=== PATIENT | female | born 1970 | race Caucasian/White ===

== ENCOUNTER → 2016-08-31 | Outpatient (CLI) | payer OTHER ==
[~2016-08-31] MED LIST: ALBU1AER9 INH; ALPR1TAB2 PO; ALPR2TAB2 PO; AMOX875T PO; ATV/1 PO; CYAN3INJ SC; CYNI1000 SQ; EPP3/2 IM; FEXO1TAB46 PO; FLNIN NAE; FLUT0.15 NAE; FURO-85 PO; GFNSR600 PO; HYDR-4383 PO; HYDR5SYP11 PO; IPRA1AER2 INH; IPRASOL4 INH; LRS10 PO; MEPO1INJ INJ; MONT1TAB3 PO; NAPR1TAB9 PO; NORE1TAB93 PO; ONDA4TAB46 PO; OXYC1TAB3 PO; PRED10TA PO; PRED20TA2 PO; PRED50TA PO; PRLSR20 PO; SYMIN160 INH; TIOT1AER2 INH; VNTHFA/IN INH; WARF10TA4 PO; WARF6TAB5 PO; ZNT/150 PO; ZOLP6.252 PO
--- NOTE | 2016-08-31 12:03 | DIAGNOSTIC IMAGING REPORT ---
CHEST 2 VIEWS ROUTINE HISTORY: Short of breath. I26.99 Pulmonary [id number] COMPARISON: Chest 06/26/2016. FINDINGS: No focal lung consolidations. No evidence for pulmonary edema. The heart is normal in size. No pleural effusions. No pneumothorax. No change in the distal resorption/resection of the left clavicle. IMPRESSION: No significant change compared to the prior study. No acute process. Electronically signed by: Dameon Hawthorne M.D. 08/31/2016 12:01 PM Dictated Date/Time: 08/31/2016 12:00 PM
--- NOTE | 2016-08-31 16:24 | DIAGNOSTIC IMAGING REPORT ---
NUCLEAR PULMONARY VENTILATION/PERFUSION SCAN CLINICAL HISTORY: Dyspnea. COMPARISON STUDY: Chest x-ray dated 08/31/2016. Chest CT dated 05/28/2015. TECHNIQUE: Initially, ventilation images of both lungs are obtained following the inhalation of 32.5 mCi of aerosolized technetium 99m DTPA. Subsequently, perfusion images of both lungs were obtained following the IV administration of 6.4 mCi of technetium 99m MAA. Ventilation and perfusion images were acquired in the anterior, posterior, and oblique projections. FINDINGS: A chest x-ray performed 08/31/2016 shows that the lungs are clear. The ventilation of both lungs is normal and symmetric. Inhaled tracer is noted in the stomach. No perfusion defects are identified on the perfusion imaging. IMPRESSION: Findings are considered low probability for pulmonary embolus. Electronically signed by: Arias Montenegro M.D. 08/31/2016 4:22 PM Dictated Date/Time: 08/31/2016 4:20 PM
== END | disposition home or self-care (01) ==
LOC: C.NUCL 09:26
PROVIDERS: ATTEND Family Medicine
DX: I26.99 Other pulmonary embolism without acute cor pulmonale (principal)

== ENCOUNTER 2016-09-29 08:08 | Emergency (ER) | payer OTHER ==
[~2016-09-29] VITALS: Ht 172.7 cm; Wt 157.0 kg
[~2016-09-29 08:08] MED LIST changes: -ALPR2TAB2 PO; -AMOX875T PO; -ATV/1 PO; -CYNI1000 SQ; -FLUT0.15 NAE; -GFNSR600 PO; -HYDR5SYP11 PO; -IPRA1AER2 INH; -LRS10 PO; -PRED10TA PO; -PRED50TA PO; -TIOT1AER2 INH; -VNTHFA/IN INH; -WARF6TAB5 PO
[2016-09-29 08:17] VITALS: TEMP 36.9; Ht 172.7 cm; Wt 157.0 kg
[2016-09-29] MEDS ORDERED: VNTHFA/IN INH (08:27)
[2016-09-29] MEDS ORDERED: ALPR2TAB2 PO (08:27)
[2016-09-29] MEDS ORDERED: IPRASOL4 INH (08:28)
[2016-09-29] MEDS ORDERED: TIOT1AER2 INH (08:28)
[2016-09-29] MEDS ORDERED: FLUT0.15 NAE (08:28)
[2016-09-29] MEDS ORDERED: CYNI1000 SQ (08:28)
[2016-09-29] MEDS ORDERED: IPRA1AER2 INH (08:28)
[2016-09-29] MEDS ORDERED: ALBUT/IPRATROP 3MG/0.5MG NEB 3 ML VIAL INH STA (09:04)
[2016-09-29] MEDS ORDERED: METHYLPREDNISOLONE 125 MG VIAL IV STA (09:16)
[2016-09-29] MEDS ORDERED: LORAZEPAM 1 MG TAB SL STA (09:22)
--- NOTE | 2016-09-29 09:25 | EMERGENCY ROOM VISIT NOTE ---
History First contact with patient: 08:57 Chief Complaint: SHORTNESS OF BREATH Stated Complaint: SOB,COPD,CHEST HEAVY Nursing Triage Summary: Pt states had asthma exacerbation on Sun, came to work and sx worsened. Pt used neb about 1 hr [employer] and albuterol inh. Pt states, "I need solumedrol." Pt states she takes Coumadin for PE's several years ago. History of Present Illness The patient is a 46 year old female who presents to the Emergency Room with complaints of shortness of breath and chest tightness. The patient reports a history of asthma. She states that on Wednesday she was outside and had the windows open and feels as though this exacerbated her asthma. She has not gone to work for the last 2 days. She states that she went to work today and when she was pushing beds she noticed tightness in her chest and shortness of breath. She also reports feeling very anxious. The patient rates her discomfort a 5/10. She has a history of pulmonary embolus. Her last INR was 2.8. She currently takes Coumadin. She denies any earache, sore throat, cough or fever. She denies any abdominal pain, nausea or vomiting. She denies any extremity pain or swelling. Review of Systems A 10 system review of systems was completed with positives and pertinent negatives listed in the HPI. Past Medical/Surgical History Medical Problems: (1) Anxiety (2) Asthma (3) Chronic obstructive lung disease (4) COPD exacerbation (5) Hernia repair (6) Irritable colon Surgical Problems: (1) H/O hernia repair (2) History of cholecystectomy Family History Diabetes mellitus FH ischemic heart disease Social History Smoking Status: Former Smoker Alcohol Use: occasionally Marital Status: Housing Status: lives with family Occupation Status: employed Current/Historical Medications Scheduled Albuterol Hfa (Ventolin Hfa), 2-4 PUFFS INH Q6H Alprazolam (Xanax), 2 MG PO HS Budesonide/Formoterol Fumarate (Symbicort 160/4.5 Inhaler ), 2 PUFFS INH BID Cyanocobalamin (Cyanocobalamin), 1,000 MCG SQ WK Epinephrine (Epipen), 0.3 MG IM UD Fexofenadine Hcl (Susanne), 180 MG PO QAM Fluticasone Propionate (Nasal) (Flonase Allergy Relief), 1 SPRAYS MUKESH BID Ipratropium-Albuterol (Combivent Respimat), 1 PUFFS INH QID Mepolizumab (Nucala), 100 MG INJ MONTHLY Montelukast Sodium (Singulair), 10 MG PO HS Naproxen (Aleve), 440 MG PO BID Norethin Acet & Estrad-Fe (Oz Fe 1.5/30 1.5-30 mg-Mcg), 1 TAB PO DAILY Omeprazole (Prilosec), 20 MG PO QAM Ranitidine Hcl (Zantac), 150 MG PO HS Tiotropium [place] Monohydrate (Spiriva Respimat), 1 PUFFS INH BID Warfarin Sod (Jantoven), 10 MG PO HS Scheduled PRN Furosemide (Lasix), 20 MG PO DAILY PRN for SWELLING Hydrocodone/Acetaminophen (Mcdonald 10/325 Tab), 1 TAB PO Q6 PRN for Pain Ipratropium-Albuterol (Duoneb), 1 TREATMENT INH Q4 PRN for COPD Zolpidem Tartrate (Ambien Cr), 6.25 MG PO HS PRN for Sleep Allergies Coded Allergies: Adhesives (Verified Allergy, Intermediate, TAPE- SEVERE ITCHING, 09/29/16) Chlorhexidine (Verified Allergy, Intermediate, ITCHING, 09/29/16) Clarithromycin (Verified Adverse Reaction, Intermediate, NAUSEA, 09/29/16) Clindamycin (Verified Adverse Reaction, Mild, NAUSEA, 09/29/16) Tramadol (Verified Adverse Reaction, Mild, dizziness,SYNCOPE, 09/29/16) Physical Exam Vital Signs Date Time Temp Pulse Resp B/P Pulse Ox O2 Delivery O2 Flow Rate FiO2 09/29/16 11:09 76 20 141/77 100 09/29/16 08:57 64 20 100 Room Air 09/29/16 08:17 36.9 79 24 138/79 99 Room Air Physical Exam VITALS: Vitals are noted on the nurse's note and reviewed by myself. Vital signs stable. The patient's oxygen saturation is 99% on room air. She is not tachycardic. GENERAL: This is an anxious appearing 46-year-old female, in no acute distress, nondiaphoretic, well-developed well-nourished. SKIN: The skin was without rashes, erythema, edema, or bruising. There is no tenting of the skin. Capillary reflex less than 2 seconds. HEAD: Normocephalic atraumatic. EARS: External auditory canals clear, tympanic membranes pearly alvarez without erythema or effusion bilaterally. EYES: Pupils equal round and reactive to light and accommodation. Conjunctivae without injection, sclerae without icterus. Extraocular movements intact. NOSE: Patent, turbinates without inflammation or discharge. MOUTH: Mucous membranes moist. Tonsils are not enlarged. Pharynx without erythema or exudate. Uvula midline. Airway patent. Tongue does not deviate. NECK: Supple without nuchal rigidity. No lymphadenopathy. No thyromegaly. Cervical spine is nontender. No JVD. HEART: Regular rate and rhythm without murmurs gallops or rubs. LUNGS: There are very minimal scattered expiratory wheezes. No retractions or accessory muscle use. ABDOMEN: Positive bowel sounds x 4. Soft, nontender, without masses or organomegaly. MUSCULOSKELETAL: No muscle atrophy, erythema, or edema noted. Full range of motion in all extremities. Normal gait. Strength 5/5 throughout. NEURO: Patient was alert and oriented to person place and time. No focal neurological deficits. Medical Decision & Procedures ER Provider Diagnostic Interpretation: [~ rep ct add3]] CHEST ONE VIEW PORTABLE CLINICAL HISTORY: trouble breathing dyspnea COMPARISON STUDY: 08/31/2016 FINDINGS: The bones soft tissues and hemidiaphragms are normal. The cardiomediastinal silhouette is normal. The lungs are clear. The pulmonary vasculature is normal. IMPRESSION: Negative chest. Laboratory Results 09/29/16 09:30 Red Blood Count 4.46, Mean Corpuscular Volume 81.4, Mean Corpuscular Hemoglobin 27.1, Mean Corpuscular Hemoglobin Concent 33.3, Mean Platelet Volume 9.5, Neutrophils (%) (Auto) 63.6, Lymphocytes (%) (Auto) 29.8, Monocytes (%) (Auto) 4.7, Eosinophils (%) (Auto) 1.6, Basophils (%) (Auto) 0.2, Neutrophils # (Auto) 6.09, Lymphocytes # (Auto) 2.85, Monocytes # (Auto) 0.45, Eosinophils # (Auto) 0.15, Basophils # (Auto) 0.02 09/29/16 09:30 Test 09/29/16 09:30 09/29/16 09:38 White Blood Count 9.57 K/uL (4.8-10.8) Red Blood Count 4.46 M/uL (4.2-5.4) Hemoglobin 12.1 g/dL (12.0-16.0) Hematocrit 36.3 % (37-47) Mean Corpuscular Volume 81.4 fL (80-100) Mean Corpuscular Hemoglobin 27.1 pg (25-34) Mean Corpuscular Hemoglobin Concent 33.3 g/dl (32-36) Platelet Count 379 K/uL (130-400) Mean Platelet Volume 9.5 fL (7.4-10.4) Neutrophils (%) (Auto) 63.6 % Lymphocytes (%) (Auto) 29.8 % Monocytes (%) (Auto) 4.7 % Eosinophils (%) (Auto) 1.6 % Basophils (%) (Auto) 0.2 % Neutrophils # (Auto) 6.09 K/uL (1.4-6.5) Lymphocytes # (Auto) 2.85 K/uL (1.2-3.4) Monocytes # (Auto) 0.45 K/uL (0.11-0.59) Eosinophils # (Auto) 0.15 K/uL (0-0.5) Basophils # (Auto) 0.02 K/uL (0-0.2) RDW Standard Deviation 42.6 fL (36.4-46.3) RDW Coefficient of Variation 14.3 % (11.5-14.5) Immature Granulocyte % (Auto) 0.1 % Immature Granulocyte # (Auto) 0.01 K/uL (0.00-0.02) Prothrombin Time 28.9 SECONDS (9.0-12.0) Prothromb Time International Ratio 2.6 (0.9-1.1) Activated Partial Thromboplast Time 47.8 SECONDS (21.0-31.0) Partial Thromboplastin Ratio 1.8 Anion Gap 7.0 mmol/L (3-11) Est Creatinine Clear Calc Drug Dose 187.9 ml/min Estimated GFR () 127.8 Estimated GFR (Non- 110.3 BUN/Creatinine Ratio 12.6 (10-20) Calcium Level 8.6 mg/dl (8.5-10.1) Total Bilirubin 0.2 mg/dl (0.2-1) Aspartate Amino Transf (AST/SGOT) 13 U/L (15-37) Alanine Aminotransferase (ALT/SGPT) 31 U/L (12-78) Alkaline Phosphatase 84 U/L (45-117) Total Protein 7.0 gm/dl (6.4-8.2) Albumin 2.7 gm/dl (3.4-5.0) Globulin 4.3 gm/dl (2.5-4.0) Albumin/Globulin Ratio 0.6 (0.9-2) Bedside D-Dimer 47 ng/mlFEU (0-450) Bedside Troponin I 0.000 ng/ml (0-0.045) Medications Administered Medications (Trade) Dose Ordered Sig/Johnathan Route Start Time Stop Time Status Last Admin Dose Admin Albuterol/ Ipratropium (Duoneb) 3 ml NOW STAT INH 09/29/16 09:04 09/29/16 09:05 DC 09/29/16 09:11 3 ML Methylprednisolone Sodium Succinate (Solu-Medrol IV) 125 mg NOW STAT IV 09/29/16 09:16 09/29/16 09:17 DC 09/29/16 09:36 125 MG Lorazepam (Ativan Tab) 1 mg NOW STAT SL 09/29/16 09:22 09/29/16 09:23 DC 09/29/16 09:36 1 MG Procedure The patient was monitored on a front desk monitor. They maintained a normal sinus rhythm without ectopy. ECG Indication: chest pain Rate (beats per minute): 76 Rhythm: normal sinus Findings: no acute ischemic change Change: no significant change ED Course The patient was seen and examined. Previous visits were reviewed. The patient does not have a fever or leukocytosis. She does not have any significant electrolyte abnormality. Troponin was 0. D-dimer was not elevated. INR was 2.6. Chest x-ray does not reveal any obvious infiltrate The patient was given a DuoNeb She was given 125 mg IV Solu-Medrol She was given 1 mg oral Ativan The patient presents to the emergency department complaining of exacerbation of asthma, chest pain and trouble breathing. The patient also complains of anxiety. The patient does not have significant wheezing and has a few scattered expiratory wheezes. The above workup does not reveal any significant abnormality. I suggested a Medrol Dosepak for the patient. The patient states that she needs to have Ativan if she takes steroids because she gets very anxious. She states she is not able to sleep. When I reviewed the patient's medication history on the prescription drug monitoring website, she does regularly fill 2 mg Xanax from her family doctor. She states that she takes this at night to sleep. I am hesitant to prescribe her additional Ativan when she already is receiving benzodiazepines regularly from her family doctor. The patient states that she "always" gets additional Ativan when she is seen in the emergency department. I did review previous documentation and she had previously stated that she needs Ativan after getting a nebulizer because it makes her anxious. I could not find any documentation that the patient received additional Ativan in prescription form from the emergency department in our documentation on the prescription drug monitoring website. I do not feel comfortable prescribing her additional Ativan when she receives regular benzodiazepines from her family doctor. At this time, the patient asked to speak with my attending physician. Dr. Wray evaluated the patient as well. He felt that she did not have any significant wheezing at this time. He suggested not giving her Medrol Dosepak and therefore she would not have increased anxiety that will require additional benzodiazepines. The patient was advised of this. She should follow-up with her family doctor for further evaluation and management. Medical Decision DIFFERENTIAL DIAGNOSIS: Aortic dissection, myocarditis, pericarditis, cervical disc disease, costochondritis, herpes zoster, rib fracture, pleuritis, pneumonia , pulmonary embolus, tension pneumothorax, anxiety disorder, somatoform disorder , choledocholithiasis, status, esophagitis, esophageal spasm, esophageal reflux , esophageal rupture, pancreatitis, peptic ulcer disease, cardiac ischemia, ST elevation [place], acute coronary syndrome, arrhythmia, coronary artery vasospasm. vavular heart disease, coronary artery disease, among others. [place] Drug Monitoring Program Search Results: patient reviewed within database, see additional documentation Impression Primary Impression: Exacerbation of asthma Additional Impression: Anxiety Departure Information Dispostion Home / Self-Care Condition GOOD Referrals ,Ramon Mcguire M.D. (PCP) Patient Instructions Asthma - [facility], [facility] Additional Instructions Contact your family doctor to schedule a follow up appointment Return with worsening symptoms Work Instructions Return To Work: 1 day Problem Qualifiers
[2016-09-29 09:42] LABS: BASO % 0.2 %; BASO ABS # 0.02 K/uL (0-0.2); COMPLETE YES; EOS % 1.6 %; HEMATOCRIT 36.3 % (37-47); IG% 0.1 %; LYMPH % 29.8 %; LYMPH ABS # 2.85 K/uL (1.2-3.4); MEAN CELL VOLUME 81.4 fL (80-100); MEAN CORPUSCULAR HEMOGLOBIN 27.1 pg (25-34); MEAN CORPUSCULAR HGB CONC 33.3 g/dl (32-36); MEAN PLATELET VOLUME 9.5 fL (7.4-10.4); MONO % 4.7 %; NEUT % 63.6 %; PLATELET COUNT 379 K/uL (130-400); RED BLOOD COUNT 4.46 M/uL (4.2-5.4); WHITE BLOOD COUNT 9.57 K/uL (4.8-10.8)
[2016-09-29 09:58] LABS: INR 2.6 (0.9-1.1); PROTHROMBIN TIME (PATIENT) 28.9 SECONDS (9.0-12.0)
--- NOTE | 2016-09-29 10:02 | DIAGNOSTIC IMAGING REPORT ---
CHEST ONE VIEW PORTABLE CLINICAL HISTORY: trouble breathing dyspnea COMPARISON STUDY: 08/31/2016 FINDINGS: The bones soft tissues and hemidiaphragms are normal. The cardiomediastinal silhouette is normal. The lungs are clear. The pulmonary vasculature is normal. IMPRESSION: Negative chest. Electronically signed by: Michael Schneider M.D. 09/29/2016 10:01 AM Dictated Date/Time: 09/29/2016 10:00 AM
[2016-09-29 10:03] LABS: BUN/CREATININE RATIO 12.6 (10-20); CALCIUM 8.6 mg/dl (8.5-10.1); CREATININE 0.61 mg/dl (0.60-1.20); POTASSIUM 4.3 mmol/L (3.5-5.1)
[2016-09-29 10:05] LABS: ALB/GLOB RATIO 0.6 (0.9-2)
[2016-09-29 10:17] LABS: PARTIAL THROMBOPLASTIN RATIO 1.8
[2016-09-29 11:09] VITALS: BP 141/77; PULSE 76; O2SAT 100
[2016-10-27] MEDS ORDERED: GFNSR600 PO (10:56)
[2016-10-27] MEDS ORDERED: HYDR-4383 PO (10:56)
[2016-10-27] MEDS ORDERED: PRED10TA PO (10:56)
[2016-10-27] MEDS ORDERED: LRS10 PO (10:56)
[2016-10-27] MEDS ORDERED: ATV/1 PO (10:56)
== END 2016-09-29 11:10 | disposition home or self-care (01) ==
LOC: C.EDB 08:10 → C.EDA 11:10
DX: J44.1 Chronic obstructive pulmonary disease with (acute) exacerbation (principal); F41.9 Anxiety disorder, unspecified; J45.909 Unspecified asthma, uncomplicated; Z87.891 Personal history of nicotine dependence; Z51.81 Encounter for therapeutic drug level monitoring; Z79.01 Long term (current) use of anticoagulants

== ENCOUNTER 2016-10-18 11:27 | Emergency (ER) | payer OTHER ==
[~2016-10-18] VITALS: Ht 172.7 cm; Wt 156.1 kg
[~2016-10-18 11:27] MED LIST changes: -ALBU1AER9 INH; -ALPR1TAB2 PO; +ALPR2TAB2 PO; -CYAN3INJ SC; +CYNI1000 SQ; -FLNIN NAE; +FLUT0.15 NAE; +IPRA1AER2 INH; -ONDA4TAB46 PO; -OXYC1TAB3 PO; -PRED20TA2 PO; +TIOT1AER2 INH; +VNTHFA/IN INH
[2016-10-18] MEDS ORDERED: WARF6TAB5 PO (11:48)
[2016-10-18] MEDS ORDERED: METHYLPREDNISOLONE 125 MG VIAL IV STA (11:55)
[2016-10-18] MEDS ORDERED: SODIUM CHLORIDE 0.9% 1000ML 1,000 ML IV STA (11:55)
[2016-10-18] MEDS ORDERED: ALBUT/IPRATROP 3MG/0.5MG NEB 3 ML VIAL INH STA (11:55)
[2016-10-18] MEDS ORDERED: HYDROCODONE/HOMATROPINE SYRUP 5MG/1.5MG 5ML UDP PO STA (11:55)
[2016-10-18 12:22] VITALS: Ht 172.7 cm; Wt 156.1 kg
[2016-10-18 12:55] LABS: BASO % 0.4 %; BASO ABS # 0.03 K/uL (0-0.2); COMPLETE YES; EOS % 2.5 %; HEMATOCRIT 38.2 % (37-47); IG% 0.3 %; LYMPH % 27.5 %; LYMPH ABS # 2.13 K/uL (1.2-3.4); MEAN CELL VOLUME 80.6 fL (80-100); MEAN CORPUSCULAR HEMOGLOBIN 27.6 pg (25-34); MEAN CORPUSCULAR HGB CONC 34.3 g/dl (32-36); MEAN PLATELET VOLUME 9.3 fL (7.4-10.4); MONO % 6.1 %; NEUT % 63.2 %; PLATELET COUNT 314 K/uL (130-400); RED BLOOD COUNT 4.74 M/uL (4.2-5.4); WHITE BLOOD COUNT 7.75 K/uL (4.8-10.8)
[2016-10-18] MEDS ORDERED: LORAZEPAM 1 MG TAB ONE (12:59)
[2016-10-18] MEDS ORDERED: LORAZEPAM 1 MG TAB PO STA (13:01)
--- NOTE | 2016-10-18 13:04 | DIAGNOSTIC IMAGING REPORT ---
TWO VIEW CHEST CLINICAL HISTORY: Dyspnea. FINDINGS: PA and lateral chest radiographs are compared to study dated 09/29/2016. The examination is degraded by large body habitus. The cardiomediastinal silhouette is unremarkable. The lungs and pleural spaces are clear. There is no pneumothorax. The bony thorax appears intact. IMPRESSION: No active disease in the chest. Electronically signed by: Arias Montenegro M.D. 10/18/2016 1:03 PM Dictated Date/Time: 10/18/2016 1:02 PM
[2016-10-18 13:13] LABS: ALT/SGPT 25 U/L (12-78); BLOOD UREA NITROGEN 8 mg/dl (7-18); CALCIUM 8.3 mg/dl (8.5-10.1); CARBON DIOXIDE 24 mmol/L (21-32); CHLORIDE 106 mmol/L (98-107); CREATININE 0.63 mg/dl (0.60-1.20); GLUCOSE 81 mg/dl (70-99); SODIUM 141 mmol/L (136-145)
[2016-10-18 13:18] LABS: ALB/GLOB RATIO 0.7 (0.9-2); ALKALINE PHOSPHATASE 99 U/L (45-117); AST/SGOT 14 U/L (15-37)
[2016-10-18 14:14] LABS: MANUAL MICROSCOPIC REQUIRED? NO; REVIEW REQ? NO; URINE APPEARANCE CLEAR (CLEAR); URINE BILIRUBIN NEG (NEG); URINE COLOR YELLOW; URINE EPITHELIAL CELL AUTO >30 /lpf (0-5); URINE NITRITE NEG (NEG); URINE PH 5.5 (4.5-7.5); URINE SPECIFIC GRAVITY 1.017 (1.000-1.030); UROBILINOGEN NEG (NEG)
[2016-10-18 14:31] LABS: PARTIAL THROMBOPLASTIN RATIO 1.1; PROTHROMBIN TIME (PATIENT) 10.2 SECONDS (9.0-12.0)
[2016-10-18] MEDS ORDERED: HYDR5SYP11 PO (15:48)
[2016-10-18] MEDS ORDERED: ATV/1 PO (15:48)
[2016-10-18] MEDS ORDERED: PRED50TA PO (15:48)
[2016-10-18 16:11] VITALS: BP 122/71; PULSE 71; TEMP 37; O2SAT 96
--- NOTE | 2016-10-18 20:21 | EMERGENCY ROOM VISIT NOTE ---
ED Visit Note First contact with patient: 11:34 Chief Complaint: Cough, wheezing and sinus congestion. History of Present Illness: Ms. Sheppard is a 46-year-old white female who ambulates into the ED accompanied by her complaining of upper respiratory tract symptoms. Historically patient has a history of asthma, bronchitis and pulmonary emboli. Patient reports for the last 2-3 days she has been having a worsening cough that has been productive of a green chunky sputum and worsening sinus congestion /pain. She reports her cough has been increasing in intensity and regularity. She has not identified any aggravating or alleviating factors related to her cough. She has been using DayQuil, NyQuil and Mucinex without relief of her cough. Associated with her cough she reports that she develops a burning sensation in the midsternal area that has been present with previous episodes of bronchitis. This discomfort is only present with the cough resolved after a coughing episode. She reports she's been hearing herself wheezing with her cough and during rest full periods. She has been using her inhalers with minimal relief of the wheezing but no relief of the cough. Additionally she reports that she is having dyspnea on exertion and a few small amounts of blood seen in her sputum at the end of the severe coughing episode. Ahe also complains of sinus congestion and pressure over the bifrontal area and the bimaxillary area. She rates this discomfort 3/10. Her pain is nonradiating. Her pain worsens with palpation and positional changes of the head. She has not identified any alleviating factors related to this pain. She has not taken any specific pain medications but has been taking decongestants as previously noted. She is also noted some redness around the sinuses that she feels warm to the touch and a decreased appetite. Lastly patient reports that she has noticed an increase in urinary frequency but has no burning or urgency; she questions if this could be related to increased fluids she has been drinking because of her symptoms. Patient denies headache, dizziness, lightheadedness, recent head trauma/facial trauma, skin eruptions, visual changes, hearing changes, difficulty speaking, difficulty swallowing, difficulty ambulating/coordinating body movements, neck pain/stiffness, palpitations, orthopnea, dependent edema, recent surgery/ inactivity/extended travel, abdominal pain, nausea, vomiting, posttussive vomiting, thoracic back pain. Review of Systems: As noted above in history of present illness. All body systems were reviewed and found to be negative as noted above. Past Medical History: As previously noted, unspecified skin disorder, gallbladder disease, gastric ulcers. Current Medications: Remigio Dean Mitchells up now Medications Dose Route/Sig Max Daily Dose Days Date Category Dose Instructions Jantoven (Warfarin Sodium) 6 Mg Tab 12 Mg PO Wednesday10/18/16 Reported Combivent Respimat (Ipratropium-Albuterol) 1 Aer Aer 2 Puffs INH Q2H 09/29/16 Reported Spiriva Respimat (Tiotropium [place] Monohydrate) 1.25 Mcg/Act Aer 1 Puffs INH BID 09/29/16 Reported Flonase Allergy Relief (Fluticasone Propionate (Nasal)) 50 Mcg/Act Spr 1 Sprays MUKESH BID 09/29/16 Reported Cyanocobalamin 1,000 Mcg/Ml Inj 1,000 Mcg SQ WK 09/29/16 Reported ON Xanax (Alprazolam) 2 Mg Tab 2 Mg PO HS 09/29/16 Reported Nucala (Mepolizumab) 100 Mg Inj 100 Mg INJ MONTHLY 06/26/16 Reported EVERY 28 DAYS RECEIVED ON 07/16/16 Epipen (Epinephrine) 0.3 Mg/0.3 Ml Inj 0.3 Mg IM UD 06/26/16 Reported WITH NUCALA [place] 10/325 Tab (Acetaminophen/Hydrocodone Bitart) 1 Tab Tab 1 Tab PO Q6 PRN 03/06/16 Reported PATIENT REPORTS VERY RARE USE Jantoven (Warfarin Sodium) 10 Mg Tab 10 Mg PO 6XWK 12/02/15 Reported EXCEPT WEDNESDAY Symbicort 160/4.5 Inhaler (Budesonide/Formoterol Fumarate) Aero 2 Puffs INH BID 07/15/15 Reported Oz Fe 1.5/30 1.5-30 mg-Mcg (Norethin Acet & Estrad-Fe) 1 Tab Tab 1 Tab PO DAILY 05/05/15 Reported Aleve (Naproxen) 220 Mg Tab 440 Mg PO BID 08/05/14 Reported Ambien Cr (Zolpidem Tartrate) 6.25 Mg Tab 6.25 Mg PO HS PRN 05/04/14 Reported Zantac (Ranitidine Hcl) 150 Mg Tab 150 Mg PO HS 12/04/13 Reported Lasix (Furosemide) 20 Mg Tab 20 Mg PO DAILY PRN 12/04/13 Reported Duoneb (Ipratropium-Albuterol) 3 Ml Nebu 1 Treatment INH Q4 PRN 05/08/13 Reported Singulair (Montelukast Sodium) 10 Mg Tab 10 Mg PO HS 05/08/13 Reported Susanne (Fexofenadine Hcl) 180 Mg Tab 180 Mg PO QAM 05/08/13 Reported Prilosec (Omeprazole) 20 Mg Capcr 20 Mg PO QAM 11/11/12 Reported Allergies to Medications: Chlorhexidine, clarithromycin, clindamycin and tramadol. Social History: Patient is currently employed; she lives with her and feels safe in her home environment; she denies tobacco use and admits to alcohol use. Physical Examination: Vital Signs: Date Time Temp Pulse Resp B/P Pulse Ox O2 Delivery O2 Flow Rate FiO2 10/18/16 16:11 37.0 71 21 122/71 96 10/18/16 16:10 71 21 122/71 96 Room Air 10/18/16 15:30 61 23 10/18/16 15:00 71 21 10/18/16 14:11 86 24 121/68 98 Room Air 10/18/16 13:04 77 16 126/79 97 Room Air 10/18/16 11:32 37.0 80 20 141/85 95 Room Air GENERAL: 46-year-old female in mild distress due to pain and cough; no acute respiratory distress, nontoxic-appearing, afebrile and hemodynamically stable. NEUROLOGICAL: Awake, alert and oriented to person, place and time. Answering questions appropriately and following commands. Normal gait. Good hand eye coordination. No focal motor sensory deficits. SKIN: Warm, dry and pink. No soft tissue eruptions or trauma noted. HEENT: Atraumatic and normocephalic. Tenderness and erythema over the frontal and maxillary sinuses. PERRLA. Sclera white and conjunctiva pink. No drainage from naris, but audible congestion. Oral cavity moist and pink. Airway patent. Pharynx is nonerythematous or edematous. Speech normal. No lymphadenopathy. Trachea midline. No jugular venous distention. BACK: No tenderness over the bony spine. No CVA tenderness. THORAX: Lungs sounds are decreased bilaterally in all rivero with wheezing on exhalation. No rales or rhonchi. No increased respiratory effort or rate. No crepitus, tenderness, subcutaneous air or deformities noted. HEART: Regular rate and rhythm. No gallops, rubs or murmurs are appreciated. ABDOMEN: Obese, soft and nontender. Positive bowel sounds in all quadrants. No guarding, rigidity or organomegaly. EXTREMITIES: Moves all extremities well on command and with purpose. All distal neurovascular statuses are intact and equal bilaterally. No calf tenderness or cords. ED Course: Patient is assessed as noted above. Laboratory Testing: Test 10/18/16 12:45 10/18/16 12:51 10/18/16 13:50 10/18/16 13:55 Range/Units White Blood Count 7.75 4.8-10.8 K/uL Red Blood Count 4.74 4.2-5.4 M/uL Hemoglobin 13.1 12.0-16.0 g/dL Hematocrit 38.2 37-47 % Mean Corpuscular Volume 80.6 80-100 fL Mean Corpuscular Hemoglobin 27.6 25-34 pg Mean Corpuscular Hemoglobin Concent 34.3 32-36 g/dl Platelet Count 314 130-400 K/uL Mean Platelet Volume 9.3 7.4-10.4 fL Neutrophils (%) (Auto) 63.2 % Lymphocytes (%) (Auto) 27.5 % Monocytes (%) (Auto) 6.1 % Eosinophils (%) (Auto) 2.5 % Basophils (%) (Auto) 0.4 % Neutrophils # (Auto) 4.91 1.4-6.5 K/uL Lymphocytes # (Auto) 2.13 1.2-3.4 K/uL Monocytes # (Auto) 0.47 0.11-0.59 K/uL Eosinophils # (Auto) 0.19 0-0.5 K/uL Basophils # (Auto) 0.03 0-0.2 K/uL RDW Standard Deviation 41.8 36.4-46.3 fL RDW Coefficient of Variation 14.2 11.5-14.5 % Immature Granulocyte % (Auto) 0.3 % Immature Granulocyte # (Auto) 0.02 0.00-0.02 K/uL Sodium Level 141 136-145 mmol/L Potassium Level 4.0 3.5-5.1 mmol/L Chloride Level 106 98-107 mmol/L Carbon Dioxide Level 24 21-32 mmol/L Anion Gap 11.0 3-11 mmol/L Blood Urea Nitrogen 8 7-18 mg/dl Creatinine 0.63 0.60-1.20 mg/dl Est Creatinine Clear Calc Drug Dose 181.3 ml/min Estimated GFR () 126.4 Estimated GFR (Non- 109.1 BUN/Creatinine Ratio 13.0 10-20 Random Glucose 81 70-99 mg/dl Calcium Level 8.3 8.5-10.1 mg/dl Total Bilirubin 0.4 0.2-1 mg/dl Aspartate Amino Transf (AST/SGOT) 14 15-37 U/L Alanine Aminotransferase (ALT/SGPT) 25 12-78 U/L Alkaline Phosphatase 99 45-117 U/L Total Creatine Kinase 56 26-192 U/L Creatine Kinase MB < 0.5 0.5-3.6 ng/ml Creatine Kinase MB Ratio 0-3.0 Total Protein 7.1 6.4-8.2 gm/dl Albumin 2.8 3.4-5.0 gm/dl Globulin 4.3 2.5-4.0 gm/dl Albumin/Globulin Ratio 0.7 0.9-2 Bedside Troponin I 0.000 0-0.045 ng/ml Prothrombin Time 10.2 9.0-12.0 SECONDS Prothromb Time International Ratio 1.0 0.9-1.1 Activated Partial Thromboplast Time 27.3 21.0-31.0 SECONDS Partial Thromboplastin Ratio 1.1 D-Dimer 200 0-500 ug/L FEU Urine Color YELLOW Urine Appearance CLEAR CLEAR Urine pH 5.5 4.5-7.5 Urine Specific [place] 1.017 1.000-1.030 Urine Protein NEG NEG Urine Glucose (UA) NEG NEG Urine Ketones NEG NEG Urine Occult Blood 3+ NEG Urine Nitrite NEG NEG Urine Bilirubin NEG NEG Urine Urobilinogen NEG NEG Urine Leukocyte Esterase TRACE NEG Urine WBC (Auto) 5-10 0-5 /hpf Urine RBC (Auto) >30 0-4 /hpf Urine Hyaline Casts (Auto) 1-5 0-5 /lpf Urine Epithelial Cells (Auto) >30 0-5 /lpf Urine Bacteria (Auto) NEG NEG Chest X-Rays: Were read by myself and the radiologist showing no acute infiltrates, effusions or pneumothorax. Normal heart silhouette and bony anatomy. EKG: Was read by myself and reviewed with Dr. Meyer; and shows normal sinus rhythm with a ventricular rate of 78 bpm. Normal access and intervals. Low voltage QRS. No acute ST changes indicating ischemia, injury or infarction. This was compared to previous from September 2016 and no acute changes were noted. Patient was hydrated with normal saline, she received an albuterol/Atrovent nebulizer breathing treatment, 125 mg of Solu-Medrol IV, 10 mL of Hycodan cough syrup by mouth and 1 mg of Ativan by mouth; patient reports steroids cause her to be aggressive and agitated. Patient was reassessed multiple times during her stay in the emergency department. Patient's case was reviewed with Dr. Meyer; we agreed on diagnostic approach, treatment, disposition and plan. Patient was educated about tonight's findings and instructed on her treatment plan; she verbalizes understanding and agreement with this plan. Clinical Impression: Acute bronchitis. Acute sinusitis. Subtherapeutic INR Decision-Making: Initially my differential diagnosis I considered bronchitis, pneumonia, pulmonary embolism, acute coronary syndrome, thoracic aneurysm, pneumothorax and other causes. Disposition: Patient discharged home in stable condition accompanied by her ; prior to departure she was reassessed and subjectively reported she was feeling much better. Reevaluation of her lungs prior to departure showed improved air movement but she remains to have expiratory wheezing at the end of the cycle; I do feel this and the cycle wheezing is possible related to being a forced expiration. Plan: Patient was encouraged to continue her current medications as prescribed; she was encouraged to double her Coumadin today and tomorrow and then follow-up with her PCP for her subtherapeutic INR. Patient was prescribed 50 mg of prednisone once a day for the next 4 days. Patient was prescribed Hycodan cough syrup and encouraged to use 5 mL every 6 hours as needed for cough; appropriate narcotic precautions were discussed with the patient. Patient was prescribed Ativan 1 mg every 12 hours as needed for anxiety or agitation. Patient was prescribed Augmentin 875 mg 2 times a day for 10 days for her sinusitis. Patient was encouraged to use 2 puffs of her albuterol inhaler every 4 hours for 5 days and as needed for severe coughing episodes, wheezing and/or shortness of breath. Patient was encouraged to follow-up with her PCP for recheck in 3-4 days. Patient was encouraged return the ED for worsening symptoms, uncontrolled shortness of breath/wheezing, coughing up blood, fevers or any new/concerning symptoms.
[2016-10-27] MEDS ORDERED: GFNSR600 PO (10:56)
[2016-10-27] MEDS ORDERED: ATV/1 PO (10:56)
[2016-10-27] MEDS ORDERED: PRED10TA PO (10:56)
[2016-10-27] MEDS ORDERED: LRS10 PO (10:56)
[2016-10-27] MEDS ORDERED: HYDR-4383 PO (10:56)
== END 2016-10-18 16:13 | disposition home or self-care (01) ==
LOC: C.EDB 11:28
DX: J20.9 Acute bronchitis, unspecified (principal); J01.90 Acute sinusitis, unspecified; J45.909 Unspecified asthma, uncomplicated; K82.9 Disease of gallbladder, unspecified; Z79.01 Long term (current) use of anticoagulants; Z87.19 Personal history of other diseases of the digestive system; Z79.899 Other long term (current) drug therapy; Z88.3 Allergy status to other anti-infective agents; Z88.8 Allergy status to other drugs, medicaments and biological substances

== ENCOUNTER 2016-10-21 17:30 | Inpatient (IN) | payer OTHER ==
[~2016-10-21] VITALS: Ht 172.7 cm; Wt 157.1 kg
[~2016-10-21 17:30] MED LIST changes: +ATV/1 PO; +HYDR5SYP11 PO; +PRED50TA PO; -VNTHFA/IN INH; +WARF6TAB5 PO
[2016-10-21] MEDS ORDERED: METHYLPREDNISOLONE 125 MG VIAL IV STA (18:19)
[2016-10-21] MEDS ORDERED: AMOX875T PO (18:21)
--- NOTE | 2016-10-21 18:21 | EMERGENCY ROOM VISIT NOTE ---
History Report prepared by Iona: Erasmo Aguirre Under the Supervision of: Dr. Ángel Rosario M.D. First contact with patient: 18:13 Chief Complaint: SHORTNESS OF BREATH Stated Complaint: BRONCHITIS, SOB History of Present Illness The patient is a 46 year old female who presents to the Emergency Room with complaints of worsening symptoms on bronchitis since being discharged from the ED three days ago. The patient was diagnosed with bronchitis in the ED. She has had headaches, chest congestion, and a productive cough. The patient's chest congestion and cough have worsened since being discharged. She was having trouble breathing last night secondary to her symptoms. The patient was started on Augmentin and Prednisone after being discharged. She has also been taking breathing treatments. The patient notes that she has had relief of these symptoms with Decadron and Solu-Medrol in the past. The patient is on Coumadin for a history of blood clots. She notes that her current symptoms do not resemble past clots. The patient follows up with her previous doctor in [place], however she called [facility] today and was referred to the ED. Source of History: patient Onset: three days ago Position: other (respiratory) Quality: other (bronchitis) Timing: worsening Associated Symptoms: + SOB, + cough, + headache Review of Systems See HPI for pertinent positives & negatives. A total of 10 systems reviewed and were otherwise negative. Past Medical & Surgical Medical Problems: (1) Anxiety (2) Asthma (3) Chronic obstructive lung disease (4) COPD exacerbation (5) Hernia repair (6) Irritable colon Surgical Problems: (1) H/O hernia repair (2) History of cholecystectomy Family History Diabetes mellitus FH ischemic heart disease Social History Smoking Status: Former Smoker Alcohol Use: occasionally Marital Status: Housing Status: lives with family Occupation Status: employed Current/Historical Medications Scheduled Alprazolam (Xanax), 2 MG PO HS Amoxicillin & Pot Clavulanate (Augmentin 875-125 mg), 1 TAB PO BID Budesonide/Formoterol Fumarate (Symbicort 160/4.5 Inhaler ), 2 PUFFS INH BID Cyanocobalamin (Cyanocobalamin), 1,000 MCG SQ WK Epinephrine (Epipen), 0.3 MG IM UD Fexofenadine Hcl (Susanne), 180 MG PO QAM Fluticasone Propionate (Nasal) (Flonase Allergy Relief), 1 SPRAYS MUKESH BID Ipratropium-Albuterol (Combivent Respimat), 2 PUFFS INH Q2H Mepolizumab (Nucala), 100 MG INJ MONTHLY Montelukast Sodium (Singulair), 10 MG PO HS Naproxen (Aleve), 440 MG PO BID Norethin Acet & Estrad-Fe (Oz Fe 1.5/30 1.5-30 mg-Mcg), 1 TAB PO DAILY Omeprazole (Prilosec), 20 MG PO QAM Prednisone (Prednisone), 50 MG PO DAILY Ranitidine Hcl (Zantac), 150 MG PO HS Tiotropium [place] Monohydrate (Spiriva Respimat), 1 PUFFS INH BID Warfarin Sod (Jantoven), 10 MG PO 6XWK Warfarin Sod (Augtoven), 12 MG PO WEDNESDAY Scheduled PRN Furosemide (Lasix), 20 MG PO DAILY PRN for SWELLING Hydrocodone W/ Homatropine (Hycodan 5/1.5MG 5 Ml), 5 ML PO Q6H PRN for Cough Hydrocodone/Acetaminophen (Stella 10/325 Tab), 1 TAB PO Q6 PRN for Pain Ipratropium-Albuterol (Duoneb), 1 TREATMENT INH Q4 PRN for COPD Lorazepam (Ativan), 1 TAB PO Q12 PRN for Anxiety/Agitation Zolpidem Tartrate (Ambien Cr), 6.25 MG PO HS PRN for Sleep Allergies Coded Allergies: Adhesives (Verified Allergy, Intermediate, TAPE- SEVERE ITCHING, 10/21/16) Chlorhexidine (Verified Allergy, Intermediate, ITCHING, 10/21/16) Clarithromycin (Verified Adverse Reaction, Intermediate, NAUSEA, 10/21/16) Clindamycin (Verified Adverse Reaction, Mild, NAUSEA, 10/21/16) Tramadol (Verified Adverse Reaction, Mild, dizziness,SYNCOPE, 10/21/16) Physical Exam Vital Signs Date Time Temp Pulse Resp B/P Pulse Ox O2 Delivery O2 Flow Rate FiO2 10/21/16 18:56 77 20 94 Room Air 10/21/16 18:50 95 Room Air 10/21/16 18:48 62 20 168/104 96 Room Air 10/21/16 18:48 95 Room Air 10/21/16 18:35 70 10/21/16 17:39 36.8 96 20 194/95 95 Room Air Physical Exam GENERAL: Patient is uncomfortable appearing and in moderate distress. HEENT: No acute trauma, normocephalic atraumatic, mucous membranes moist, no nasal congestion, no scleral icterus. NECK: No stridor, no adenopathy, no meningismus, trachea is midline. LUNGS: No dyspnea. Diffuse wheezing and junky breath sounds throughout all rivero. No significant dyspnea or tachypnea. HEART: Regular rate and rhythm. No murmurs, rubs, gallops appreciated. ABDOMEN: Soft, nontender, bowel sounds positive, no masses appreciated, no peritonitis. BACK: No midline tenderness, no CVA tenderness EXTREMITIES: Normal motion all extremities, no cyanosis, no edema. NEUROLOGIC: Alert and oriented, no acute motor or sensory deficits, no focal weakness, cranial nerves grossly intact. SKIN: No rash, no jaundice, no diaphoresis. Medical Decision & Procedures ER Provider Diagnostic Interpretation: X ray results are stated below per my interpretation and the radiologist's interpretation. CHEST ONE VIEW PORTABLE CLINICAL HISTORY: Persistent cough COMPARISON STUDY: Chest radiograph October 18, 2016. FINDINGS: Lung volumes are normal. There is no pneumothorax or pleural effusion. No consolidation is identified to suggest pneumonia. There is no evidence of pulmonary edema. Cardiomediastinal silhouette is stable. The appearance of the chest is unchanged. IMPRESSION: No acute cardiopulmonary findings. Electronically signed by: Cameron Beatty M.D. 10/21/2016 6:55 PM Dictated Date/Time: 10/21/2016 6:55 PM Laboratory Results 10/21/16 17:15 Red Blood Count 4.87, Mean Corpuscular Volume 80.9, Mean Corpuscular Hemoglobin 27.3, Mean Corpuscular Hemoglobin Concent 33.8, Mean Platelet Volume 9.4, Neutrophils (%) (Auto) 78.4, Lymphocytes (%) (Auto) 18.3, Monocytes (%) (Auto) 2.7, Eosinophils (%) (Auto) 0.0, Basophils (%) (Auto) 0.2, Neutrophils # (Auto) 7.90, Lymphocytes # (Auto) 1.84, Monocytes # (Auto) 0.27, Eosinophils # (Auto) 0.00, Basophils # (Auto) 0.02 10/21/16 17:15 Test 10/21/16 17:15 10/21/16 19:22 White Blood Count 10.07 K/uL (4.8-10.8) Red Blood Count 4.87 M/uL (4.2-5.4) Hemoglobin 13.3 g/dL (12.0-16.0) Hematocrit 39.4 % (37-47) Mean Corpuscular Volume 80.9 fL (80-100) Mean Corpuscular Hemoglobin 27.3 pg (25-34) Mean Corpuscular Hemoglobin Concent 33.8 g/dl (32-36) Platelet Count 403 K/uL (130-400) Mean Platelet Volume 9.4 fL (7.4-10.4) Neutrophils (%) (Auto) 78.4 % Lymphocytes (%) (Auto) 18.3 % Monocytes (%) (Auto) 2.7 % Eosinophils (%) (Auto) 0.0 % Basophils (%) (Auto) 0.2 % Neutrophils # (Auto) 7.90 K/uL (1.4-6.5) Lymphocytes # (Auto) 1.84 K/uL (1.2-3.4) Monocytes # (Auto) 0.27 K/uL (0.11-0.59) Eosinophils # (Auto) 0.00 K/uL (0-0.5) Basophils # (Auto) 0.02 K/uL (0-0.2) RDW Standard Deviation 42.4 fL (36.4-46.3) RDW Coefficient of Variation 14.4 % (11.5-14.5) Immature Granulocyte % (Auto) 0.4 % Immature Granulocyte # (Auto) 0.04 K/uL (0.00-0.02) Anion Gap 7.0 mmol/L (3-11) Est Creatinine Clear Calc Drug Dose 161.6 ml/min Estimated GFR () 123.9 Estimated GFR (Non- 106.9 BUN/Creatinine Ratio 14.0 (10-20) Calcium Level 9.0 mg/dl (8.5-10.1) Total Creatine Kinase 64 U/L (26-192) Creatine Kinase MB < 0.5 ng/ml (0.5-3.6) Creatine Kinase MB Ratio (0-3.0) Troponin I < 0.015 ng/ml (0-0.045) Activated Partial Thromboplast Time 33.1 SECONDS (21.0-31.0) Partial Thromboplastin Ratio 1.3 Laboratory results as reviewed by me. Medications Administered Medications (Trade) Dose Ordered Sig/Johnathan Route Start Time Stop Time Status Last Admin Dose Admin Methylprednisolone Sodium Succinate (Solu-Medrol IV) 125 mg NOW STAT IV 10/21/16 18:19 10/21/16 18:21 DC 10/21/16 18:47 125 MG Albuterol/ Ipratropium (Duoneb) 12 ml ONE ONCE INH 10/21/16 18:30 10/21/16 18:31 DC 10/21/16 18:55 12 ML Lorazepam (Ativan Inj) 1 mg NOW STAT IV 10/21/16 19:03 10/21/16 19:04 DC 10/21/16 19:11 1 MG Hydrocodone Bit/ Homatropine Methylb (Hycodan Syrup) 10 ml NOW STAT PO 10/21/16 19:25 10/21/16 19:26 DC 10/21/16 19:32 10 ML Hydrocodone Bit/ Homatropine Methylb (Hycodan Syrup) 5 ml Q6H PRN PO 10/21/16 20:15 11/04/16 20:14 10/22/16 01:50 5 ML Acetaminophen/ Hydrocodone Bitart (Stella 10/325 Tab) 1 tab Q6 PRN PO 10/21/16 20:15 11/04/16 20:14 10/21/16 21:52 1 TAB Lorazepam (Ativan Tab) 1 mg Q12 PRN PO 10/21/16 20:15 10/22/16 11:19 DC 10/22/16 05:44 1 MG Ondansetron HCl (Zofran Inj) 4 mg Q6H PRN IV 10/21/16 20:15 11/20/16 20:14 10/22/16 09:04 4 MG ECG Indication: SOB/dyspnea Rate (beats per minute): 69 Rhythm: normal sinus Findings: no acute ischemic change, no ectopy ED Course 1814: The patient was evaluated in room C1b. A complete history and physical exam was performed. 1818: Solu-Medrol 125 mg IV. 1829: DuoNeb 12 ml INH. 1902: Ativan 1 mg IV. 1925: The patient is having intractable coughing and shaking. She is anxious and feels like she cannot get mucous out of her throat. She requested cough syrup. 1924: Hycodan 10 ml PO. 1957: The patient's lungs still sound very junky. 2154: Spoke with Dr. Hernandez, [facility]. The patient will be evaluated. Medical Decision Differential: Infectious, Reactive Airway Disease, Pneumonia, Pneumothorax, COPD , CHF, ACS, Pulmonary Embolism, MSK, GI, Dissection, amongst other etiologies entertained. 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 She arrives today with worsening SHOB despite home steroids over last 4 days and frequent breathing treatments. Patient with diffuse wheezing though also appears to be making some upper airway noises/stridor with this making full lung exam difficult. She has therapeutic INR. She notes need for IV solumedrol in this case. She is not toxic nor septic. Makes clear she needs IV pain meds which I am not sure are indicated. Was given hycodan cough med as sh eis coughing over and over, as well as ativan for what appears to be severe anxiety. No evidence ACS, dissection, and she has therapeutic INR thus I do not feel this represents PE. Good O2 sats throughout. Will have hospitalist eval. Consults Time Called: 2144 Consulting Physician: Dr. Hernandez, [facility]. Returned Call: [phone]: Spoke with Dr. Hernandez, [facility]. The patient will be evaluated. Impression Primary Impression: Status asthmaticus Scribe Attestation The scribe's documentation has been prepared under my direction and personally reviewed by me in its entirety. I confirm that the note above accurately reflects all work, treatment, procedures, and medical decision making performed by me. Departure Information Dispostion Being Evaluated By Hospitalist Referrals ,Ramon Mcguire M.D. (PCP) Patient Instructions My [facility] Problem Qualifiers Primary Impression: Status asthmaticus Asthma severity: severe persistent Qualified Codes: J45.52 - Severe persistent asthma with status asthmaticus
[2016-10-21] MEDS ORDERED: ALBUT/IPRATROP 3MG/0.5MG NEB 3 ML VIAL INH ONE (18:30)
[2016-10-21 18:39] LABS: BASO % 0.2 %; BASO ABS # 0.02 K/uL (0-0.2); COMPLETE YES; HEMATOCRIT 39.4 % (37-47); IG% 0.4 %; LYMPH % 18.3 %; LYMPH ABS # 1.84 K/uL (1.2-3.4); MEAN CELL VOLUME 80.9 fL (80-100); MEAN CORPUSCULAR HEMOGLOBIN 27.3 pg (25-34); MEAN CORPUSCULAR HGB CONC 33.8 g/dl (32-36); MEAN PLATELET VOLUME 9.4 fL (7.4-10.4); MONO % 2.7 %; NEUT % 78.4 %; PLATELET COUNT 403 K/uL (130-400); RED BLOOD COUNT 4.87 M/uL (4.2-5.4); WHITE BLOOD COUNT 10.07 K/uL (4.8-10.8)
[2016-10-21 18:56] VITALS: PULSE 77; O2SAT 94
--- NOTE | 2016-10-21 18:57 | DIAGNOSTIC IMAGING REPORT ---
CHEST ONE VIEW PORTABLE CLINICAL HISTORY: Persistent cough COMPARISON STUDY: Chest radiograph October 18, 2016. FINDINGS: Lung volumes are normal. There is no pneumothorax or pleural effusion. No consolidation is identified to suggest pneumonia. There is no evidence of pulmonary edema. Cardiomediastinal silhouette is stable. The appearance of the chest is unchanged. IMPRESSION: No acute cardiopulmonary findings. Electronically signed by: Cameron Beatty M.D. 10/21/2016 6:55 PM Dictated Date/Time: 10/21/2016 6:55 PM
[2016-10-21 18:58] LABS: BLOOD UREA NITROGEN 9 mg/dl (7-18); CARBON DIOXIDE 29 mmol/L (21-32); CHLORIDE 103 mmol/L (98-107); CREATININE 0.67 mg/dl (0.60-1.20); GLUCOSE 105 mg/dl (70-99); POTASSIUM 4.2 mmol/L (3.5-5.1); SODIUM 139 mmol/L (136-145)
[2016-10-21] MEDS ORDERED: LORAZEPAM 2 MG/ML 1 ML VIAL IV STA (19:03)
[2016-10-21] MEDS ORDERED: HYDROCODONE/HOMATROPINE SYRUP 5MG/1.5MG 5ML UDP PO STA (19:25)
[2016-10-21 19:46] LABS: PARTIAL THROMBOPLASTIN RATIO 1.3
[2016-10-21] MEDS ORDERED: POLYETHYLENE (MIRALAX) 17 GM PACK PO PRN (20:15)
[2016-10-21] MEDS ORDERED: LORAZEPAM 1 MG TAB PO PRN (20:15)
[2016-10-21] MEDS ORDERED: MAGNESIUM HYDROXIDE SUSP 30 ML UDC PO PRN (20:15)
[2016-10-21] MEDS ORDERED: ALUMINUM/MAGNESIUM/SIMETH (MAALOX MAX) 30 ML UDC PO PRN (20:15)
[2016-10-21] MEDS ORDERED: HYDROCODONE/HOMATROPINE SYRUP 5MG/1.5MG 5ML UDP PO PRN (20:15)
[2016-10-21] MEDS ORDERED: KETOROLAC TROMETHAMINE 30 MG/ML VIAL ONE (20:38)
[2016-10-21] MEDS ORDERED: KETOROLAC TROMETHAMINE 15 MG/ML VIAL IV SCH (20:45)
--- NOTE | 2016-10-21 20:55 | History and Physical ---
History & Physical Date & Time of Service: Oct 21, 2016 at 20:34 Chief Complaint: Bronchitis, Sob Primary Care Physician: Ramon العراقي M.D. History of Present Illness Source: patient 46 y/o F w/Hx COPD and eosinophilic lung disease, morbid obesity, PE. She presented to the ER 3 days prior due to SOB and persistent wheezing. She additionally complains of lower back pain which is chronic but worse today and a headache which she states may be induced by excessive Albuterol use. She felt warm the previous evening but was unable to confirm a fever. She has occasional coughing spells which are not productive. She has been taking Augmentin for 3 days and is on chronic therapy with 50mg Prednisone daily in addition to Coumadin for the past 3 years. Past Medical/Surgical History Medical Problems: (1) Anxiety Status: Chronic (2) Asthma Status: Chronic (3) Chronic obstructive lung disease Status: Chronic (4) COPD exacerbation Status: Chronic (5) Hernia repair Status: Resolved (6) Irritable colon Status: Chronic 7) Eosinophilic lung disease 8) Morbid obesity 9) Chronic LBP Surgical Problems: (1) H/O hernia repair Status: Resolved (2) History of cholecystectomy Status: Resolved Family History Diabetes mellitus FH ischemic heart disease Both parents alive with CAD Social History Smoking Status: Former Smoker Marital Status: Housing status: lives with family Occupational Status: employed Immunizations History of Influenza Vaccine: Yes Influenza Vaccine Date: Jun 06, 2012 History of Tetanus Vaccine?: Yes Tetanus Immunization Date: Dec 06, 2007 History of Pneumococcal: No History of Hepatitis B Vaccine: Yes Hepatitis Immunization Date: Dec 06, 2007 Multi-Drug Resistant Organisms History of MDRO: No Allergies Coded Allergies: Adhesives (Verified Allergy, Intermediate, TAPE- SEVERE ITCHING, 10/21/16) Chlorhexidine (Verified Allergy, Intermediate, ITCHING, 10/21/16) Clarithromycin (Verified Adverse Reaction, Intermediate, NAUSEA, 10/21/16) Clindamycin (Verified Adverse Reaction, Mild, NAUSEA, 10/21/16) Tramadol (Verified Adverse Reaction, Mild, dizziness,SYNCOPE, 10/21/16) Home Medications Scheduled Alprazolam (Xanax), 2 MG PO HS Amoxicillin & Pot Clavulanate (Augmentin 875-125 mg), 1 TAB PO BID Budesonide/Formoterol Fumarate (Symbicort 160/4.5 Inhaler ), 2 PUFFS INH BID Cyanocobalamin (Cyanocobalamin), 1,000 MCG SQ WK Epinephrine (Epipen), 0.3 MG IM UD Fexofenadine Hcl (Susanne), 180 MG PO QAM Fluticasone Propionate (Nasal) (Flonase Allergy Relief), 1 SPRAYS MUKESH BID Ipratropium-Albuterol (Combivent Respimat), 2 PUFFS INH Q2H Mepolizumab (Nucala), 100 MG INJ MONTHLY Montelukast Sodium (Singulair), 10 MG PO HS Naproxen (Aleve), 440 MG PO BID Norethin Acet & Estrad-Fe (Oz Fe 1.5/30 1.5-30 mg-Mcg), 1 TAB PO DAILY Omeprazole (Prilosec), 20 MG PO QAM Prednisone (Prednisone), 50 MG PO DAILY Ranitidine Hcl (Zantac), 150 MG PO HS Tiotropium [place] Monohydrate (Spiriva Respimat), 1 PUFFS INH BID Warfarin Sod (Jantoven), 10 MG PO 6XWK Warfarin Sod (Jantoven), 12 MG PO WEDNESDAY Scheduled PRN Furosemide (Lasix), 20 MG PO DAILY PRN for SWELLING Hydrocodone W/ Homatropine (Hycodan 5/1.5MG 5 Ml), 5 ML PO Q6H PRN for Cough Hydrocodone/Acetaminophen (Oneco 10/325 Tab), 1 TAB PO Q6 PRN for Pain Ipratropium-Albuterol (Duoneb), 1 TREATMENT INH Q4 PRN for COPD Lorazepam (Ativan), 1 TAB PO Q12 PRN for Anxiety/Agitation Zolpidem Tartrate (Ambien Cr), 6.25 MG PO HS PRN for Sleep Review of Systems Constitutional: No chills, No fever, No sweats Eyes: No eye pain, No worsening of vision ENT: No hearing loss, No nasal symptoms, No unusual epistaxis Respiratory: + cough, + dyspnea at rest, + dyspnea on exertion, + shortness of breath, + wheezing, No sputum Cardiovascular: No PND, No chest pain, No orthopnea Abdomen: No nausea, No pain, No vomiting Musculoskeletal: No joint pain, No muscle pain Genitourinary - Female: No dysuria, No urinary frequency, No urinary urgency Neurologic: + problem reported (headache), No memory loss, No paralysis, No weakness Psychiatric: No depression symptoms Endocrine: No fatigue Hematologic / Lymphatic: No abnormal bleeding/bruising Integumentary: No rash Allergic / Immunologic: No environmental allergies Physical Exam Vital Signs Date Time Temp Pulse Resp B/P Pulse Ox O2 Delivery O2 Flow Rate FiO2 10/21/16 18:56 77 20 94 Room Air 10/21/16 18:50 95 Room Air 10/21/16 18:48 62 20 168/104 96 Room Air 10/21/16 18:48 95 Room Air 10/21/16 18:35 70 10/21/16 17:39 36.8 96 20 194/95 95 Room Air General Appearance: WD/WN, no apparent distress, + pertinent finding ( overweight middle aged female in no diatress - large airway noises audible) Head: normocephalic, atraumatic Eyes: normal inspection, PERRL, EOMI ENT: normal ENT inspection, hearing grossly normal Neck: supple, no adenopathy, thyroid normal, + pertinent finding (Exam limited by habitus) Respiratory/Chest: chest non-tender, no respiratory distress, + pertinent finding (Exam is more consitent with a degree of stridor than wheezing - no crackles are audible - air movement is adequate) Cardiovascular: regular rate, rhythm, no edema, no gallop, no JVD, no murmur, normal peripheral pulses Abdomen/GI: normal bowel sounds, non tender, soft Back: normal inspection Extremities/Musculoskelatal: normal inspection, no calf tenderness, normal capillary refill Neurologic/Psych: 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3 % Monocytes (%) (Auto) 2.7 % Eosinophils (%) (Auto) 0.0 % Basophils (%) (Auto) 0.2 % Neutrophils # (Auto) 7.90 1.4-6.5 K/uL Lymphocytes # (Auto) 1.84 1.2-3.4 K/uL Monocytes # (Auto) 0.27 0.11-0.59 K/uL Eosinophils # (Auto) 0.00 0-0.5 K/uL Basophils # (Auto) 0.02 0-0.2 K/uL RDW Standard Deviation 42.4 36.4-46.3 fL RDW Coefficient of Variation 14.4 11.5-14.5 % Immature Granulocyte % (Auto) 0.4 % Immature Granulocyte # (Auto) 0.04 0.00-0.02 K/uL Sodium Level 139 136-145 mmol/L Potassium Level 4.2 3.5-5.1 mmol/L Chloride Level 103 98-107 mmol/L Carbon Dioxide Level 29 21-32 mmol/L Anion Gap 7.0 3-11 mmol/L Blood Urea Nitrogen 9 7-18 mg/dl Creatinine 0.67 0.60-1.20 mg/dl Est Creatinine Clear Calc Drug Dose 161.6 ml/min Estimated GFR () 123.9 Estimated GFR (Non- 106.9 BUN/Creatinine Ratio 14.0 10-20 Random Glucose 105 70-99 mg/dl Calcium Level 9.0 8.5-10.1 mg/dl Total Creatine Kinase 64 26-192 U/L Creatine Kinase MB < 0.5 0.5-3.6 ng/ml Creatine Kinase MB Ratio 0-3.0 Troponin I < 0.015 0-0.045 ng/ml Prothrombin Time 34.0 9.0-12.0 SECONDS Prothromb Time International Ratio 3.0 0.9-1.1 Activated Partial Thromboplast Time 33.1 21.0-31.0 SECONDS Partial Thromboplastin Ratio 1.3 Diagnostic Radiology CXR: Lung volumes are normal. There is no pneumothorax or pleural effusion. No consolidation is identified to suggest pneumonia. There is no evidence of pulmonary edema. Cardiomediastinal silhouette is stable. The appearance of the chest is unchanged. Impression Assessment and Plan 46 y/o F w/Hx COPD and eosinophilic lung disease, morbid obesity, PE. She presented to the ER 3 days prior due to SOB and persistent wheezing. She additionally complains of lower back pain which is chronic but worse today and a headache which she states may be induced by excessive Albuterol use. She felt warm the previous evening but was unable to confirm a fever. She has occasional coughing spells which are not productive. She has been taking Augmentin for 3 days and is on chronic therapy with 50mg Prednisone daily in addition to Coumadin for the past 3 years. 1) SOB - I cannot appreciate a significant degree of wheezing or limited air movement at present - she does exhibit some stridor. There is no evidence of active infection. The pt will be treated for COPD exacerbation as she has had this for over 4 days and this is her second trip to the ER. She will be placed on scheduled Duonebs with PRN Albuterol, IV steroids and antibiotics. If there is no improvement by AM we would consult pulmonology as this may be an upper airway issue. It is noted in the chart that she is set to start Mepolizumab which would likely take place in the outpatient setting regardless. 2) History of PE - resolution recently confirmed on VQ - cont Coumadin per outpt dosing. INR is therapeutic at 3.0. 3) Chronic pain - will cont home dose of Oneco Full code - Coumadin prophylaxis Total time for this admit including review of labs, meds, imaging - discussion with ER MD and Pt - 37 min Level of Care Med/Surg Resuscitation Status FULL RESUSCITATION VTE Prophylaxis VTE Risk Assessment Done? Y/N: Yes Risk Level: High Given or contraindicated: Warfarin (Coumadin)
[2016-10-21] MEDS: HYDROCODONE/ACETAMI 10/325 TAB PO PRN (21:52)
[2016-10-21] MEDS: SODIUM CHLORIDE 0.9% 1000ML 1,000 ML IV SCH (22:01)
[2016-10-21] MEDS: ALBUT/IPRATROP 3MG/0.5MG NEB 3 ML VIAL INH SCH (22:02)
[2016-10-21] MEDS: ALPRAZOLAM 0.5 MG TAB PO SCH (22:04)
[2016-10-21] MEDS: MONTELUKAST SOD 10 MG TAB PO SCH (22:06)
[2016-10-21] MEDS: FLUTICASONE PROPIONATE NA SPR 16 GM BTL NAE SCH (22:06)
[2016-10-21] MEDS: BUDESONIDE/FORMOTEROL FUMARATE 160/4.5 60 PUFFS/INHALER INH SCH (22:07)
[2016-10-21] MEDS: RANITIDINE HCL 150 MG TAB PO SCH (22:07)
[2016-10-21] MEDS: LEVOFLOXACIN / D5W 500 MG in PREMIXED IN D5W 100 ML IV SCH (22:08)
[2016-10-21] MEDS ORDERED: NURSING VERBAL MED ORDER ONE (22:30)
[2016-10-21 22:31] VITALS: BP 164/84; PULSE 68; TEMP 36.8; O2SAT 96; Ht 172.7 cm; Wt 157.1 kg
[2016-10-22] VITALS (13 sets, daily range): BP systolic 136–177; BP diastolic 67–89; PULSE 62–91; TEMP 36.4–36.7; O2SAT 94–98
[2016-10-22] MEDS: METHYLPREDNISOLONE IV 60 MG in SYRINGE 0 ML IV SCH ×5 (00:03→23:54)
[2016-10-22] MEDS ORDERED: NURSING VERBAL MED ORDER ONE ×3 (00:30→20:45)
[2016-10-22] MEDS: ZOLPIDEM TARTRATE 5 MG TAB PO SCH ×2 (00:35→21:35)
[2016-10-22] MEDS: ONDANSETRON INJ 2 MG/ML 2 ML VIAL IV PRN ×5 (00:35→23:56)
[2016-10-22] MEDS ORDERED: MoRPHine SULFATE 2 MG/ML CARP IV SCH (00:45)
[2016-10-22] MEDS: WARFARIN SOD 10 MG TAB PO SCH ×2 (00:47→16:00)
[2016-10-22] MEDS: ALBUT/IPRATROP 3MG/0.5MG NEB 3 ML VIAL INH SCH ×4 (01:45→19:18)
[2016-10-22] MEDS: SODIUM CHLORIDE 0.9% 1000ML 1,000 ML IV SCH (04:40)
[2016-10-22 05:53] LABS: INR 2.7 (0.9-1.1); PROTHROMBIN TIME (PATIENT) 30.3 SECONDS (9.0-12.0)
[2016-10-22] MEDS ORDERED: HydrALAZINE HCL 20 MG/ML VIAL IV. PRN (08:15)
[2016-10-22] MEDS: FLUTICASONE PROPIONATE NA SPR 16 GM BTL NAE SCH ×2 (08:18→21:37)
[2016-10-22] MEDS: BUDESONIDE/FORMOTEROL FUMARATE 160/4.5 60 PUFFS/INHALER INH SCH ×2 (08:20→21:37)
[2016-10-22] MEDS: FEXOFENADINE HCL 180 MG TAB PO SCH (08:21)
[2016-10-22] MEDS: PANTOprazole SOD 40 MG TAB PO SCH (08:22)
[2016-10-22] MEDS: MoRPHine SULFATE 2 MG/ML CARP IV PRN ×4 (08:56→23:58)
[2016-10-22] MEDS: LORAZEPAM INJ 1 MG in SYRINGE 0.5 ML IV PRN ×3 (12:03→23:53)
[2016-10-22] MEDS ORDERED: CYANOCOBALAMIN 1000 MCG/ML VIAL IM ONE (13:00)
--- NOTE | 2016-10-22 13:53 | Hospitalist Progress Note ---
Hospitalist Progress Note Date of Service Oct 22, 2016. (Rubina Cardona PA-C) Subjective Pt evaluation today including: conversation w/ patient, physical exam, chart review, lab review, conversation w/ data processing consultant, review of inpatient medication list Patient reports no significant improvement. Still complaining of shortness of breath with a productive cough. Denies any fever or chills. No chest pain. She is complaining of some back pain, which is usual for her. It is worse with her significant cough. Additional Comments: 6 system review negative. Please see pertinent positives in the history of present illness section. (Rubina Cardona PA-C) Objective Vital Signs Date Time Temp Pulse Resp B/P Pulse Ox O2 Delivery O2 Flow Rate FiO2 10/22/16 12:00 36.7 71 18 163/89 97 Room Air 10/22/16 11:04 Room Air 10/22/16 11:02 62 136/67 10/22/16 07:54 36.4 81 18 170/84 97 Room Air 10/22/16 07:20 73 20 94 Room Air 10/22/16 01:52 77 20 94 Room Air 10/22/16 00:07 36.7 70 18 152/81 98 Room Air 10/22/16 00:00 Room Air 10/21/16 22:31 36.8 68 20 164/84 96 Room Air 10/21/16 20:44 69 18 139/89 96 Room Air 10/21/16 18:56 77 20 94 Room Air 10/21/16 18:50 95 Room Air 10/21/16 18:48 62 20 168/104 96 Room Air 10/21/16 18:48 95 Room Air 10/21/16 18:35 70 10/21/16 17:39 36.8 96 20 194/95 95 Room Air (Rubina Cardona PA-C) Physical Exam General Appearance: + mild distress (anxious in appearance. Coughing.) Eyes: EOMI Neck: no JVD Respiratory/Chest: + pertinent finding (diffuse wheezing noted bilaterally. Decreased breath sounds at the bases without any crackles bilaterally. Positive tachypnea.) Cardiovascular: + tachycardia, + pertinent finding (no murmur noted.) Abdomen: normal bowel sounds, non tender, soft Extremities: non-tender, no pedal edema Neurologic/Psychiatric: no motor/sensory deficits, oriented x 3 Skin: warm/dry (Rubina Cardona PA-C) Laboratory Results 10/21/16 17:15 Red Blood Count 4.87, Mean Corpuscular Volume 80.9, Mean Corpuscular Hemoglobin 27.3, Mean Corpuscular Hemoglobin Concent 33.8, Mean Platelet Volume 9.4, Neutrophils (%) (Auto) 78.4, Lymphocytes (%) (Auto) 18.3, Monocytes (%) (Auto) 2.7, Eosinophils (%) (Auto) 0.0, Basophils (%) (Auto) 0.2, Neutrophils # (Auto) 7.90, Lymphocytes # (Auto) 1.84, Monocytes # (Auto) 0.27, Eosinophils # (Auto) 0.00, Basophils # (Auto) 0.02 10/21/16 17:15 Test 10/21/16 17:15 10/21/16 19:22 10/22/16 05:35 White Blood Count 10.07 K/uL (4.8-10.8) Red Blood Count 4.87 M/uL (4.2-5.4) Hemoglobin 13.3 g/dL (12.0-16.0) Hematocrit 39.4 % (37-47) Mean Corpuscular Volume 80.9 fL (80-100) Mean Corpuscular Hemoglobin 27.3 pg (25-34) Mean Corpuscular Hemoglobin Concent 33.8 g/dl (32-36) Platelet Count 403 K/uL (130-400) Mean Platelet Volume 9.4 fL (7.4-10.4) Neutrophils (%) (Auto) 78.4 % Lymphocytes (%) (Auto) 18.3 % Monocytes (%) (Auto) 2.7 % Eosinophils (%) (Auto) 0.0 % Basophils (%) (Auto) 0.2 % Neutrophils # (Auto) 7.90 K/uL (1.4-6.5) Lymphocytes # (Auto) 1.84 K/uL (1.2-3.4) Monocytes # (Auto) 0.27 K/uL (0.11-0.59) Eosinophils # (Auto) 0.00 K/uL (0-0.5) Basophils # (Auto) 0.02 K/uL (0-0.2) RDW Standard Deviation 42.4 fL (36.4-46.3) RDW Coefficient of Variation 14.4 % (11.5-14.5) Immature Granulocyte % (Auto) 0.4 % Immature Granulocyte # (Auto) 0.04 K/uL (0.00-0.02) Anion Gap 7.0 mmol/L (3-11) Est Creatinine Clear Calc Drug Dose 161.6 ml/min Estimated GFR () 123.9 Estimated GFR (Non- 106.9 BUN/Creatinine Ratio 14.0 (10-20) Calcium Level 9.0 mg/dl (8.5-10.1) Total Creatine Kinase 64 U/L (26-192) Creatine Kinase MB < 0.5 ng/ml (0.5-3.6) Creatine Kinase MB Ratio (0-3.0) Troponin I < 0.015 ng/ml (0-0.045) Activated Partial Thromboplast Time 33.1 SECONDS (21.0-31.0) Partial Thromboplastin Ratio 1.3 Prothrombin Time 30.3 SECONDS (9.0-12.0) Prothromb Time International Ratio 2.7 (0.9-1.1) Last 24 Hours Test 10/21/16 17:15 10/21/16 19:22 10/22/16 05:35 White Blood Count 10.07 K/uL Red Blood Count 4.87 M/uL Hemoglobin 13.3 g/dL Hematocrit 39.4 % Mean Corpuscular Volume 80.9 fL Mean Corpuscular Hemoglobin 27.3 pg Mean Corpuscular Hemoglobin Concent 33.8 g/dl Platelet Count 403 K/uL Mean Platelet Volume 9.4 fL Neutrophils (%) (Auto) 78.4 % Lymphocytes (%) (Auto) 18.3 % Monocytes (%) (Auto) 2.7 % Eosinophils (%) (Auto) 0.0 % Basophils (%) (Auto) 0.2 % Neutrophils # (Auto) 7.90 K/uL Lymphocytes # (Auto) 1.84 K/uL Monocytes # (Auto) 0.27 K/uL Eosinophils # (Auto) 0.00 K/uL Basophils # (Auto) 0.02 K/uL RDW Standard Deviation 42.4 fL RDW Coefficient of Variation 14.4 % Immature Granulocyte % (Auto) 0.4 % Immature Granulocyte # (Auto) 0.04 K/uL Sodium Level 139 mmol/L Potassium Level 4.2 mmol/L Chloride Level 103 mmol/L Carbon Dioxide Level 29 mmol/L Anion Gap 7.0 mmol/L Blood Urea Nitrogen 9 mg/dl Creatinine 0.67 mg/dl Est Creatinine Clear Calc Drug Dose 161.6 ml/min Estimated GFR () 123.9 Estimated GFR (Non- 106.9 BUN/Creatinine Ratio 14.0 Random Glucose 105 mg/dl Calcium Level 9.0 mg/dl Total Creatine Kinase 64 U/L Creatine Kinase MB < 0.5 ng/ml Creatine Kinase MB Ratio Troponin I < 0.015 ng/ml Prothrombin Time 34.0 SECONDS 30.3 SECONDS Prothromb Time International Ratio 3.0 2.7 Activated Partial Thromboplast Time 33.1 SECONDS Partial Thromboplastin Ratio 1.3 (Rubina Cardona, KO) Assessment and Plan 46-year-old female with a history of severe asthma, PE and eosinophilic pulmonary disease presented to the ER with a productive cough and increased shortness of breath. She was seen in the emergency department a few days prior. She was treated with Augmentin and prednisone 50 mg with no improvement. The patient is typically not on chronic steroids anymore. She follows with Dr. Murphy in [place]. Asthma exacerbation -Continue duo nebs every 4 hours -Continue Solu-Medrol at current dose of 60 mg IV every 6 hrs -Mucinex 1200 mg po BID -Pulmonary consult appreciated -Continue Spiriva respimat daily, Symbicort 2 puffs BID -Pulmonary toilet with flutter valve and vibration vest -Peak flows every shift -NPO after midnight for possible bronch in the morning (pending INR) -Patient is supposed to be taking Nucala injections once monthly. She will need pulmonary approval for this. History of PE-INR therapeutic today at 2.7 -Hold Coumadin this evening for possible procedure in the morning -check PT/INR in am -Home dose of Coumadin is 10 mg daily except mondays, 12 mg on Mondays Chronic back pain -Baclofen and morphine ordered -Home dose of [place] not helping -Hold home dose of naproxen for 40 mg po BID for possible procedure in AM Anxiety -Continue Xanax 2 mg HS -Given acute illness, we'll change Ativan to 1 mg IV q 6 h Insomnia -Continue Ambien 6.25 mg at night DVT prophylaxis -coumadin -TEDS, SCDs CODE STATUS -LEVEL I FULL CODE (Rubina Cardona, PACynthiaC) Attending Attestation: Pt seen/examined, chart reviewed, care plan d/w JUAN PABLO Cardona. I agree w/ the flores components of her documentation. Pt feels "a little better today". Can take deeper breaths. But still with cough and dyspnea and wheeze. c/o right flank/lower chest discomfort with coughing. VSS O2 sats in RA normal gen - obese mouth - no thrush heart - RRR lungs - diffuse wheezing all lung segments; decreased BS bases; no increased WOB abd - soft, NT ext - no edema A/P: asthma / COPD / eosinophilic lung disease with exacerbation - appreciate pulmonary consultation agree w/ steroids, nebs, pulmonary toilet possible bronch in AM h/o PE - coumadin to be held today due to upcoming bronch David Malone MD (David Malone MD)
--- NOTE | 2016-10-22 13:56 | CONSULTATION REPORT ---
DATE OF CONSULTATION: 10/22/2016 PULMONARY CONSULTATION NOTE REASON FOR CONSULTATION: Asthma exacerbation. HISTORY OF PRESENT ILLNESS: This is a 46-year-old female with past medical history of eosinophilic lung disease, COPD, asthma, morbid obesity, anxiety, irritable bowel, chronic low back pain, GERD, and history of a pulmonary embolus in 2013, who was admitted on 10/21/2016 for exacerbation of her asthma/COPD. The patient has been in the ER 3 other times within the past 4 months. She was in the ER in 06/26/2016 with an exacerbation of her asthma, was given a prednisone taper. She was also in the ER September 29 for exacerbation and was treated with IV Solu-Medrol nebulizer in the ER and given any outpatient treatments that I could find. She was also in the ER on 10/18/2016 with exacerbation of her asthma and was treated with prednisone and Augmentin as an outpatient. Unfortunately, her symptoms worsened following the October 18 visit and her breathing worsened and her chest tightened up. Of note, also is that she was told to stop her Mucinex, which she had been taken prior to that and she states that the mucus that had been she had been unable to expectorate all of a sudden stopped. She states that she is coughing quite a bit, the cough is sometimes uncontrollable. She states that she did have some very thick "chunks" of mucus that were green in color. She also had a little bit of hemoptysis 2 days ago. She has not really had much mucus expectoration since then. She feels that there is mucus in her chest, but she is unable to cough it up mucus that she did get up. She states it was very hard, almost like cement. She states that she is very tight in her chest, she is wheezing quite a bit and she is more short of breath. She states she is very frustrated because it seems the past 2 months she has not been able to clear that she feels like she is having much more difficulty. She does complain of headache and a little bit of nasal production as well. She has not really had much in the way of fever, no chills, no night sweats. She has not had any pleuritic type chest pain. Denies any chest pain in general, however, she states that her chronic low back pain is worse. She has not had any nausea or vomiting. She has not had any diarrhea. Her bowels have been regular. She has not had any difficulty voiding. No swelling in her extremities. The patient does have somewhat of a complicated pulmonary history. She followed with Dr. Remigio Murphy in the area for asthma for several years and because of the refractory nature of her asthma, she underwent bronchial thermoplasty with the first treatment of the right lower lobe be in April 2015 to followup treatment to the left lower lobe in May of 2015 and a followup to the left and right upper lobe in June of 2015. The patient did develop pneumonia following the May procedure, which was treated with antibiotics, Mucomyst and vibration vest. The patient continued to have difficulty and Dr. Murphy tried her with a new medication called Nucala which is an L5 antagonist. The patient started in February of 2016 with Nucala and had 5 treatments with the last one being in 07/13/2016. She states that Dr. Murphy gave her a prescription to have 12 further treatments and wanted to follow her up after the sixth treatment. Unfortunately, she has not had anything since the July 13 treatment due to being ill. She feels that it was helping her and did make a difference. However, she still is very frustrated. She is trying to find somebody locally to sign off on the treatments and it appears that she does have an appointment coming up with Dr. Garland who apparently will be following this, according to the patient. On interview with the patient today, she states that she is feeling a little bit better, she has been receiving Solu-Medrol 60 mg 4 times daily, she has been receiving nebulizer treatments, although she is not sure how often. She states that her anxiety is elevated which she had difficulty with anxiety anyway that the Solu-Medrol makes it worse. She also reports that she was placed on Spiriva Respimat by Dr. Murphy, but unfortunately is not on formulary and she is worried about bringing her own in, but she feels that it is helpful for her as well. In reviewing of the records, her last hospitalization was 06/05/2015 which was referred to earlier following the bronchoscopic thermoplasty on the left lower lobe which was done on 05/24/2015. PAST MEDICAL HISTORY: Includes eosinophilic lung disease, asthma, morbid obesity, anxiety, irritable bowel syndrome, chronic low back pain, gastroesophageal reflux disease, history of pulmonary emboli in 2013 for which she is on chronic anticoagulation. PAST SURGICAL HISTORY: Includes cholecystectomy; bronchial thermoplasty of the right lower lobe 04/30/2015 and the left lower lobe 05/24/2015 and combination of the left upper lobe and the right upper lobe 06/21/2015; claviculectomy, ventral hernia repair, tonsillectomy and adenoidectomy and appendectomy. FAMILY HISTORY: Includes diabetes mellitus, ischemic heart disease, cancer, Alzheimer dementia, bipolar disorder, sarcoidosis and asthma. SOCIAL HISTORY: The patient is a former smoker with an 8-pack-year smoking history. She smoked approximately 2 packs a day for 4 years and quit in 1993. Rarely consumes alcohol at this point. She is unemployed at [employer] in [employer]. OUTPATIENT MEDICATIONS: Include Susanne 180 mg daily, alprazolam 2 mg 1 tablet at bedtime, cyanocobalamin 1000 mcg subQ weekly, Combivent Respimat 1 puff 4 times a day, Flonase nasal spray 2 sprays each nostril daily, furosemide 20 mg 1 tablet daily as needed, [place] 10/325 one tablet every 6 hours as needed, DuoNeb 4 times daily as needed, Junel FE .530 one tablet daily, Singulair 10 mg daily, Nucala 100 mg subcutaneous once a month, omeprazole 20 mg daily, oxycodone 5 mg as directed, prednisone as directed, ProAir HFA 2 puffs q. 4 hours as needed, ranitidine 150 mg 1 tablet by mouth at bedtime, Symbicort 160/4.5 two puffs twice daily, Ventolin HFA 2 puffs q. 4 hours as needed, vitamin D 50,000 units 1 capsule weekly, Coumadin 12.5 mg 1 day a week and 10 mg at rest, Zofran 4 mg q. 6 hours as needed for nausea, and zolpidem 6.25 mg 1 tablet at bedtime as needed for sleep. ALLERGIES: BIAXIN, CLINDAMYCIN, ADHESIVE TAPE, ZITHROMAX, CHLORHEXIDINE WELL AND TRAMADOL. REVIEW OF SYSTEMS: As above, otherwise unremarkable. PHYSICAL EXAMINATION: GENERAL: The patient is a 46-year-old female lying in bed in no acute distress, no respiratory distress, able to talk in complete sentences without becoming breathless. No accessory muscle use at this time. HEENT: Normocephalic, atraumatic. Pupils equal, round and reactive to light and accommodation. Extraocular movements are intact. [place] moist gingival and buccal mucosa. NECK: Short, thick, no mass. No adenopathy. No bruit. No tenderness to palpation. CHEST: The patient has diminished breath sounds throughout. She does have expiratory wheezes, primarily in the upper airways bilaterally on exhalation. No appreciated rale or rhonchi at this time. CARDIOVASCULAR: Regular rate and rhythm. There are no murmurs, gallops or rubs. ABDOMEN: Bowel sounds are present. Abdomen is obese, soft, nontender. No guarding, rigidity, or organomegaly. SPINE: The patient has tenderness to palpation on the right paraspinal musculature. No deformity. No step-offs and no abnormality to palpation. EXTREMITIES: No erythema or edema at this time. No tenderness to palpation. No cyanosis or clubbing. NEUROLOGIC: Cranial nerves II through XII are intact. No focal deficit noted. LABORATORY DATA: Shows white count of 10,000, H\\T\\H of 13.3 and 39.4, platelet count of 403,000. INR of 2.7. BUN 9, creatinine 0.67. Total CK of 64, CK-MB of less than 0.5, troponin 0.015. IMAGING DATA: Chest x-ray done in the ER shows no acute findings. IMPRESSION AND PLAN: This is a 46-year-old female who is having an exacerbation to her asthma and has been having difficulties for several weeks now. At this point, she has been admitted and is currently on Levaquin and Solu-Medrol. Agree with Solu-Medrol, but almost sounds like she is having some mucus plugging. The case was discussed with Dr. Estrella and hopefully will be able to perform a bronchoscopic evaluation on the patient tomorrow; however, her INR is 2.7, so will check with Dr. Estrella regarding this. At this point, would recommended continue current antibiotic coverage with Levaquin, also recommended to continue Solu-Medrol 60 mg q. 6. Would like to try and coordinate her lorazepam with the Solu-Medrol dose. Also, will change her pulmonary toilet to q. 4 hours while awake to be very aggressive and hopes that we can get the wheezing calmed down for her procedure tomorrow. I have discussed with her about using a vibration vest which she is agreeable to and will order that. She states that she has used Mucomyst in the past; however, it caused her quite severe back pains and will hold off with that; however, I would like to start her on some Mucinex. We will make her n.p.o. and hold her Coumadin for possible bronchoscopy tomorrow. In regards to her eosinophilia, the patient is in the process of continuing her Nucala injections. She has an appointment pending with Dr. Garland and hopefully that will get started as seem to be helpful for her in the past. She is on Spiriva as an outpatient and will attempt to get samples for her as this is not on hospital formulary. 3. Back pain. Would like to try her with some baclofen to see if this helps. Due to her severe coughing, her back pain is going to persist. Also the patient is due for cyanocobalamin injection, will put that in and discuss with hospitalist service. At this point, will continue to follow through hospitalization. Patient's case reviewed and discussed agree with plan. JOVANY
[2016-10-22] MEDS: BACLOFEN 10 MG TAB PO SCH ×2 (14:16→21:36)
[2016-10-22] MEDS: ALBUTEROL 0.083% NEBU SOLN 3 ML VIAL INH PRN ×2 (14:20→23:11)
[2016-10-22] MEDS: ALPRAZOLAM 0.5 MG TAB PO SCH (21:34)
[2016-10-22] MEDS: LEVOFLOXACIN / D5W 500 MG in PREMIXED IN D5W 100 ML IV SCH (21:35)
[2016-10-22] MEDS: HYDROCODONE/ACETAMI 10/325 TAB PO PRN (21:35)
[2016-10-22] MEDS: GUAIFENESIN 600 MG TABCR PO SCH (21:36)
[2016-10-22] MEDS: MONTELUKAST SOD 10 MG TAB PO SCH (21:36)
[2016-10-22] MEDS: RANITIDINE HCL 150 MG TAB PO SCH (21:36)
[2016-10-23] VITALS (9 sets, daily range): BP systolic 133–171; BP diastolic 65–80; PULSE 58–83; TEMP 36.5–37; O2SAT 95–100
[2016-10-23] MEDS: ALBUTEROL 0.083% NEBU SOLN 3 ML VIAL INH PRN (03:12)
[2016-10-23] MEDS: ONDANSETRON INJ 2 MG/ML 2 ML VIAL IV PRN ×5 (03:33→22:17)
[2016-10-23] MEDS: MoRPHine SULFATE 2 MG/ML CARP IV PRN ×5 (03:33→22:17)
[2016-10-23] MEDS: METHYLPREDNISOLONE IV 60 MG in SYRINGE 0 ML IV SCH ×3 (06:24→18:23)
[2016-10-23] MEDS: LORAZEPAM INJ 1 MG in SYRINGE 0.5 ML IV PRN ×3 (06:24→18:22)
[2016-10-23 06:27] LABS: INR 4.2 (0.9-1.1); PROTHROMBIN TIME (PATIENT) 47.5 SECONDS (9.0-12.0)
[2016-10-23] MEDS: ALBUT/IPRATROP 3MG/0.5MG NEB 3 ML VIAL INH SCH ×4 (07:21→19:55)
[2016-10-23] MEDS: BUDESONIDE/FORMOTEROL FUMARATE 160/4.5 60 PUFFS/INHALER INH SCH ×2 (08:23→22:20)
[2016-10-23] MEDS: FLUTICASONE PROPIONATE NA SPR 16 GM BTL NAE SCH ×2 (08:24→22:19)
[2016-10-23] MEDS: BACLOFEN 10 MG TAB PO SCH ×3 (09:50→22:21)
[2016-10-23] MEDS: FEXOFENADINE HCL 180 MG TAB PO SCH (09:50)
[2016-10-23] MEDS: PANTOprazole SOD 40 MG TAB PO SCH (09:50)
[2016-10-23] MEDS: GUAIFENESIN 600 MG TABCR PO SCH ×2 (09:51→22:20)
--- NOTE | 2016-10-23 11:51 | Hospitalist Progress Note ---
Hospitalist Progress Note Date of Service Oct 23, 2016. (Rubina Cardona PA-C) Subjective Pt evaluation today including: conversation w/ patient, physical exam, chart review, lab review, conversation w/ regional sales consultant, review of inpatient medication list Patient continues to complain of shortness of breath. She is unable to get up any mucus. She is feeling extra dry as she has not been able to take liquids. Denies any fever or chills. Denies any chest pain. She is exceptionally frustrated that she is not going to have the bronchoscopy today. She is also very anxious about her financial situation. He denies any hemoptysis overnight. Additional Comments: 6 system review negative. Please see pertinent positives in the history of present illness section. (Rubina Cardona PA-C) Objective Vital Signs Date Time Temp Pulse Resp B/P Pulse Ox O2 Delivery O2 Flow Rate FiO2 10/23/16 08:00 Room Air 10/23/16 07:22 37.0 68 20 171/75 98 Room Air 151/72 10/23/16 07:21 83 20 100 Room Air 10/23/16 05:33 Room Air 10/23/16 03:13 72 20 97 Room Air 10/23/16 00:31 Room Air 10/22/16 23:47 36.7 72 18 174/81 97 Room Air 10/22/16 23:11 79 20 97 Room Air 10/22/16 22:18 91 158/70 Room Air 10/22/16 19:17 82 20 98 Room Air 10/22/16 16:21 98 Room Air 10/22/16 15:42 36.5 91 18 177/80 98 Room Air 10/22/16 14:20 72 20 97 Room Air 10/22/16 12:00 36.7 71 18 163/89 97 Room Air (Rubina Cardona PA-C) Physical Exam General Appearance: + mild distress (significantly anxious and upset) Neck: no JVD Respiratory/Chest: + pertinent finding (diffuse wheezing bilaterally. No significant improvement. No crackles or rhonchi auscultated. No tachypnea or accessory muscle use. ) Cardiovascular: regular rate, rhythm Abdomen: normal bowel sounds, non tender, soft Extremities: non-tender, no pedal edema Neurologic/Psychiatric: no motor/sensory deficits, oriented x 3, + pertinent finding (anxious and distraught) Skin: warm/dry, no rash (Rubina Cardona PA-C) Laboratory Results Test 10/23/16 05:13 Prothrombin Time 47.5 SECONDS (9.0-12.0) Prothromb Time International Ratio 4.2 (0.9-1.1) Last 24 Hours Test 10/23/16 05:13 Prothrombin Time 47.5 SECONDS Prothromb Time International Ratio 4.2 (Rubina Cardona PA-C) Assessment and Plan 46-year-old female with a history of severe asthma, PE and eosinophilic pulmonary disease presented to the ER with a productive cough and increased shortness of breath. She was seen in the emergency department a few days prior. She was treated with Augmentin and prednisone 50 mg with no improvement. The patient is typically not on chronic steroids anymore. She follows with Dr. Murphy in [place]. Asthma exacerbation-no significant improvement -Continue duo nebs every 4 hours -Continue Solu-Medrol at current dose of 60 mg IV every 6 hrs -Mucinex 1200 mg po BID -Pulmonary consult appreciated -Continue Spiriva respimat daily, Symbicort 2 puffs BID -Pulmonary toilet with flutter valve and vibration vest -Peak flows every shift -No bronchoscopy today for numerous reasons. Patient is #1 high risk and #2 still wheezing -nocturnal oximetry to evaluate how pt would tolerate sedation -Patient is supposed to be taking Nucala injections once monthly. She will need pulmonary approval for this. History of PE-INR high today @ 4.2 -Continue to hold coumadin -check PT/INR in am -Home dose of Coumadin is 10 mg daily except mondays, 12 mg on Mondays Chronic back pain -Baclofen and morphine ordered -Home dose of [place] not helping -Hold home dose of naproxen for 40 mg po BID for possible procedure in AM Anxiety-worse -Continue Xanax 2 mg HS -Given acute illness, we'll change Ativan to 1 mg IV q 6 h--> in the future would avoid this as it would make resp failure worse -Avoid Seroquel in the setting of prolonged QT Insomnia -Increase ambien to 10 mg at night (extended release not formulary in the hospital) HTN-not on any home meds. Likely related to anxiety -continue to monitor -prn hydralazine DVT prophylaxis -coumadin -TEDS, SCDs CODE STATUS -LEVEL I FULL CODE (Rubina Cardona PA-C) Attending Attestation: Pt seen/examined, chart reviewed, care plan d/w PA Rubina Cardona. I agree w/ the flores components of her documentation. Pt with significant anxiety today. No change in cough, wheezing, dyspnea. Anxious about multiple stressors. VSS o2 sats normal upper 90s gen - obese, NAD mouth - no thrush heart - RRR lungs - mild wheezing upper segments posteriorly, decreased BS bases, no rales, no increased WOB abd - soft, NT ext - no edema A/P: Eosinophilic lung disease / asthma with exacerbation - modest improvement at best. cont high-dose steroids. cont aggressive pulmonary toilet. bronch on hold due to high INR, continued bronchospasm, high risk of complications due to current status/obesity/etc. h/o PE - coumadin on hold due to INR 4.2 anxiety - benzos prn supportive therapy given today for her anxiety Libertad MALONE MD (David Malone MD)
--- NOTE | 2016-10-23 12:44 | Pulmonology Progress Note ---
Pulmonary Progress Note Date of Service Oct 23, 2016. Attending Dr. Estrella Subjective Patient still notes intermittent cough and dyspnea at rest/exertion. Objective Patient able to complete full sentences not using accessory muscles at this time peak flow meter notably at 350 this a.m. Vital signs: Reviewed Respiratory: Expiratory wheezing noted bilaterally Cardiac: S1-S2 distant heart sounds Abdomen: Positive bowel sounds soft nontender Assessment & Plan 46-year-old female with chronic poorly controlled asthma: #1 Asthma Exacerbation: At this time continue current prednisone and antibiotic regimen along with aggressive pulmonary toilet. #2 Bronchoscopy: At this time patient is a high risk for perioperative bronchoscopy complications: Active asthma exacerbation, OLIMPIA, morbid obesity, anxiety unable to tolerate BiPAP, and poor IV access. We'll continue to monitor the patient as she seems to progress over the weekend will have PICC line placed and reevaluate for bronchoscopy Wednesday. #3 Chronic Asthma Control: I do agree with initiation of Nucala, continuation of current outpatient respiratory medications/inhalers as well. But major importance will be initiation lifestyle changes so I suggest patient has outpatient consultation with Dr. Beverly Villarreal and further workup for sleep apnea. Asthma is notably extremely difficult to control with associated OLIMPIA. We'll order nocturnal oximetry study for further evaluation of OLIMPIA. #3 pulmonary embolism: INR currently 4.2 continue to monitor reinitiated therapy to maintain INR at therapeutic levels. Data Medications: Current Inpatient Medications Medications (Trade) Dose Ordered Sig/Johnathan Route Start Time Stop Time Status Last Admin Dose Admin Budesonide/ Formoterol Fumarate (Symbicort 160/ 4.5 Inh) 2 puffs BID INH 10/21/16 21:00 11/20/16 20:59 10/23/16 08:23 2 PUFFS Fexofenadine HCl (Susanne Tab) 180 mg QAM PO 10/22/16 08:00 11/21/16 08:59 10/23/16 09:50 180 MG Fluticasone Propionate (Flonase Nasal [place]) 1 sprays BID MUKESH 10/21/16 21:00 11/20/16 20:59 10/23/16 08:24 1 SPRAYS Hydrocodone Bit/ Homatropine Methylb (Hycodan Syrup) 5 ml Q6H PRN PO 10/21/16 20:15 11/04/16 20:14 10/22/16 01:50 5 ML Acetaminophen/ Hydrocodone Bitart ([place] 10/325 Tab) 1 tab Q6 PRN PO 10/21/16 20:15 11/04/16 20:14 10/22/16 21:35 1 TAB Montelukast Sodium (Singulair Tab) 10 mg HS PO 10/21/16 21:00 11/20/16 20:59 10/22/16 21:36 10 MG Ranitidine HCl (zANTac TAB) 150 mg HS PO 10/21/16 21:00 11/20/16 20:59 10/22/16 21:36 150 MG Alprazolam (Xanax Tab) 2 mg HS PO 10/21/16 21:00 11/20/16 20:59 10/22/16 21:34 2 MG Pantoprazole Sodium (Protonix Tab) 40 mg QAM PO 10/22/16 08:00 11/21/16 08:59 10/23/16 09:50 40 MG Al Hydrox/Mg Hydrox/Simethicone (Maalox Max Susp) 15 ml Q4H PRN PO 10/21/16 20:15 11/20/16 20:14 Magnesium Hydroxide (Milk Of Magnesia Susp) 30 ml Q6H PRN PO 10/21/16 20:15 11/20/16 20:14 Polyethylene (Miralax Powder Packet) 17 gm DAILY PRN PO 10/21/16 20:15 11/20/16 20:14 Albuterol Sulfate 2.5 mg 2.5 mg Q4H PRN INH 10/21/16 20:15 11/20/16 20:14 10/23/16 03:12 2.5 MG Methylprednisolone Sodium Succinate 60 mg/Syringe 0.96 ml @ 1.5 mls/min Q6H IV 10/22/16 00:00 11/21/16 00:00 10/23/16 12:06 1.5 MLS/MIN Levofloxacin/Prmx (Levaquin / D5W/ Premixed D5W) 100 ml @ 100 mls/hr Q24H IV 10/21/16 22:00 10/28/16 20:59 10/22/16 21:35 100 MLS/HR Hydralazine HCl (HydrALAZINE INJ) 5 mg Q6H PRN IV. 10/22/16 08:15 11/21/16 08:14 Morphine Sulfate 2 mg 2 mg Q4H PRN IV 10/22/16 08:30 11/05/16 08:29 10/23/16 08:23 2 MG Lorazepam/Syringe (Ativan Inj/ Syringe) 1 ml @ 1 mls/min Q6H PRN IV 10/22/16 11:30 11/21/16 11:29 10/23/16 12:06 1 MLS/MIN Lorazepam (Ativan Inj) 1 mg Q6H PRN IV 10/22/16 11:30 Albuterol/ Ipratropium (Duoneb) 3 ml Q4RWA INH 10/22/16 16:00 11/21/16 15:59 10/23/16 11:35 3 ML Baclofen (Lioresal Tab) 10 mg TID PO 10/22/16 14:00 11/21/16 13:59 10/23/16 09:50 10 MG Guaifenesin (Mucinex Contr Rel Tab) 600 mg Q12 PO 10/22/16 21:00 11/21/16 20:59 10/23/16 09:51 600 MG Miscellaneous Information (Order Awaiting Action) 1 ea TID N/A 10/22/16 13:00 11/21/16 12:59 Ondansetron HCl (Zofran Inj) 4 mg Q4H PRN IV 10/22/16 20:45 11/21/16 20:44 10/23/16 08:22 4 MG Zolpidem Tartrate (Ambien Tab) 10 mg HSZ PO 10/23/16 22:00 11/22/16 21:59 I & O: 24-Hour Column 10/23/16 07:59 Intake Total 2619 ml Output Total 7050 ml Balance -4431 ml Vital Signs: Date Time Temp Pulse Resp B/P Pulse Ox O2 Delivery O2 Flow Rate FiO2 10/23/16 11:35 78 20 98 Room Air 10/23/16 08:00 Room Air 10/23/16 07:22 37.0 68 20 171/75 98 Room Air 151/72 10/23/16 07:21 83 20 100 Room Air 10/23/16 05:33 Room Air 10/23/16 03:13 72 20 97 Room Air 10/23/16 00:31 Room Air 10/22/16 23:47 36.7 72 18 174/81 97 Room Air 10/22/16 23:11 79 20 97 Room Air 10/22/16 22:18 91 158/70 Room Air 10/22/16 19:17 82 20 98 Room Air 10/22/16 16:21 98 Room Air 10/22/16 15:42 36.5 91 18 177/80 98 Room Air 10/22/16 14:20 72 20 97 Room Air Laboratory Results: Last 24 Hours Test 10/23/16 05:13 Prothrombin Time 47.5 SECONDS Prothromb Time International Ratio 4.2
[2016-10-23] MEDS: HYDROCODONE/ACETAMI 10/325 TAB PO PRN (17:19)
[2016-10-23] MEDS: ALPRAZOLAM 0.5 MG TAB PO SCH (22:18)
[2016-10-23] MEDS: LEVOFLOXACIN / D5W 500 MG in PREMIXED IN D5W 100 ML IV SCH (22:19)
[2016-10-23] MEDS: RANITIDINE HCL 150 MG TAB PO SCH (22:20)
[2016-10-23] MEDS: MONTELUKAST SOD 10 MG TAB PO SCH (22:20)
[2016-10-23] MEDS: ZOLPIDEM TARTRATE 10 MG TAB PO SCH (22:37)
[2016-10-24] MEDS: METHYLPREDNISOLONE IV 60 MG in SYRINGE 0 ML IV SCH ×4 (00:17→17:58)
[2016-10-24] MEDS: LORAZEPAM INJ 1 MG in SYRINGE 0.5 ML IV PRN ×4 (00:18→17:58)
[2016-10-24] MEDS: ONDANSETRON INJ 2 MG/ML 2 ML VIAL IV PRN ×4 (02:45→20:24)
[2016-10-24] MEDS: MoRPHine SULFATE 2 MG/ML CARP IV PRN ×4 (02:45→20:24)
[2016-10-24 07:03] LABS: INR 2.7 (0.9-1.1); PROTHROMBIN TIME (PATIENT) 30.6 SECONDS (9.0-12.0)
[2016-10-24 07:05] VITALS: PULSE 69; O2SAT 94
[2016-10-24] MEDS: ALBUT/IPRATROP 3MG/0.5MG NEB 3 ML VIAL INH SCH ×2 (07:05→11:01)
[2016-10-24 07:11] VITALS: BP 136/85; PULSE 67; TEMP 36.7; O2SAT 96
[2016-10-24] MEDS: FEXOFENADINE HCL 180 MG TAB PO SCH (08:02)
[2016-10-24] MEDS: BACLOFEN 10 MG TAB PO SCH ×3 (08:02→20:23)
[2016-10-24] MEDS: BUDESONIDE/FORMOTEROL FUMARATE 160/4.5 60 PUFFS/INHALER INH SCH ×2 (08:03→20:23)
[2016-10-24] MEDS: PANTOprazole SOD 40 MG TAB PO SCH (08:03)
[2016-10-24] MEDS: FLUTICASONE PROPIONATE NA SPR 16 GM BTL NAE SCH ×2 (08:03→20:23)
[2016-10-24] MEDS: GUAIFENESIN 600 MG TABCR PO SCH ×2 (08:03→20:22)
[2016-10-24] MEDS: HYDROCODONE/ACETAMI 10/325 TAB PO PRN (10:59)
[2016-10-24 11:01] VITALS: PULSE 68; O2SAT 97
[2016-10-24] MEDS: POLYETHYLENE (MIRALAX) 17 GM PACK PO SCH (12:17)
[2016-10-24] MEDS: SENNA 8.6 MG TAB PO SCH (12:17)
[2016-10-24] MEDS ORDERED: GLUCAGON FOR INJ 1 MG VIAL SQ PRN (12:30)
[2016-10-24] MEDS ORDERED: GLUCOSE 10 TABS/TUBE PO PRN (12:30)
[2016-10-24] MEDS ORDERED: GLUCOSE 40% GEL 15 GM TUBE PO PRN (12:30)
[2016-10-24] MEDS ORDERED: DEXTROSE 50% 50 ML SYR IV PRN (12:30)
--- NOTE | 2016-10-24 12:57 | DIAGNOSTIC IMAGING REPORT ---
CHEST 2 VIEWS ROUTINE CLINICAL HISTORY: eval for complicating pneumonia or pulmonary edema dyspnea COMPARISON STUDY: 10/21/2016 FINDINGS: The bones soft tissues and hemidiaphragms are normal. The cardiomediastinal silhouette is normal. The lungs are clear. The pulmonary vasculature is normal. IMPRESSION: Negative chest. Electronically signed by: Michael Schneider M.D. 10/24/2016 12:55 PM Dictated Date/Time: 10/24/2016 12:55 PM
--- NOTE | 2016-10-24 13:37 | Pulmonology Progress Note ---
Pulmonary Progress Note Date of Service Oct 24, 2016. Attending Dr. Estrella Subjective Recent notes improvement in her upper respiratory symptoms but continued global fatigue and ill feeling. Objective Patient sitting up able to complete full sentences with no signs of accessory muscle use or tachypnea. This morning's peak flow meter 325 Vital signs: Reviewed Respiratory: Minimal wheezing bilaterally Cardiac: S1-S2 distant heart sounds Abdomen: Positive bowel sounds soft nontender Oximetry report: Longest continuous time with the saturations equal to or less than 89% was 32 seconds I/O: -12L Assessment & Plan 46-year-old female with chronic poorly controlled asthma admitted with acute on chronic respiratory insufficiency: #1 Asthma Exacerbation: Patient is clinically improving would continue current medical regimen. If she continues to progress Will perform bronchoscopy Wednesday morning. #2 Pulmonary Hypertension: Patient is been diuresed 12 L since her admission. With this she has noted improvement in her respiratory status. I believe we need to follow this up further with echocardiogram and possibly right heart catheterization with left ventricular end-diastolic pressure as an outpatient. #3 Chronic Asthma Control: I do agree with initiation of Nucala, continuation of current outpatient respiratory medications/inhalers as well. But major importance will be initiation lifestyle changes so I suggest patient has outpatient consultation with Dr. Beverly Villarreal and further workup for sleep apnea. Asthma is notably extremely difficult to control with associated OLIMPIA. We'll order nocturnal oximetry study for further evaluation of OLIMPIA. #3 Pulmonary Embolism: INR currently 4.2 continue to monitor reinitiated therapy to maintain INR at therapeutic levels. Data Medications: Current Inpatient Medications Medications (Trade) Dose Ordered Sig/Johnathan Route Start Time Stop Time Status Last Admin Dose Admin Budesonide/ Formoterol Fumarate (Symbicort 160/ 4.5 Inh) 2 puffs BID INH 10/21/16 21:00 11/20/16 20:59 10/24/16 08:03 2 PUFFS Fexofenadine HCl (Susanne Tab) 180 mg QAM PO 10/22/16 08:00 11/21/16 08:59 10/24/16 08:02 180 MG Fluticasone Propionate (Flonase Nasal [place]) 1 sprays BID MUKESH 10/21/16 21:00 11/20/16 20:59 10/24/16 08:03 1 SPRAYS Hydrocodone Bit/ Homatropine Methylb (Hycodan Syrup) 5 ml Q6H PRN PO 10/21/16 20:15 11/04/16 20:14 10/22/16 01:50 5 ML Acetaminophen/ Hydrocodone Bitart (Curtice 10/325 Tab) 1 tab Q6 PRN PO 10/21/16 20:15 11/04/16 20:14 10/24/16 10:59 1 TAB Montelukast Sodium (Singulair Tab) 10 mg HS PO 10/21/16 21:00 11/20/16 20:59 10/23/16 22:20 10 MG Ranitidine HCl (zANTac TAB) 150 mg HS PO 10/21/16 21:00 11/20/16 20:59 10/23/16 22:20 150 MG Alprazolam (Xanax Tab) 2 mg HS PO 10/21/16 21:00 11/20/16 20:59 10/23/16 22:18 2 MG Pantoprazole Sodium (Protonix Tab) 40 mg QAM PO 10/22/16 08:00 11/21/16 08:59 10/24/16 08:03 40 MG Al Hydrox/Mg Hydrox/Simethicone (Maalox Max Susp) 15 ml Q4H PRN PO 10/21/16 20:15 11/20/16 20:14 Magnesium Hydroxide (Milk Of Magnesia Susp) 30 ml Q6H PRN PO 10/21/16 20:15 11/20/16 20:14 Polyethylene (Miralax Powder Packet) 17 gm DAILY PRN PO 10/21/16 20:15 11/20/16 20:14 Albuterol Sulfate 2.5 mg 2.5 mg Q4H PRN INH 10/21/16 20:15 11/20/16 20:14 10/23/16 03:12 2.5 MG Methylprednisolone Sodium Succinate 60 mg/Syringe 0.96 ml @ 1.5 mls/min Q6H IV 10/22/16 00:00 11/21/16 00:00 10/24/16 12:16 1.5 MLS/MIN Levofloxacin/Prmx (Levaquin / D5W/ Premixed D5W) 100 ml @ 100 mls/hr Q24H IV 10/21/16 22:00 10/28/16 20:59 10/23/16 22:19 100 MLS/HR Hydralazine HCl (HydrALAZINE INJ) 5 mg Q6H PRN IV. 10/22/16 08:15 11/21/16 08:14 Morphine Sulfate 2 mg 2 mg Q4H PRN IV 10/22/16 08:30 11/05/16 08:29 10/24/16 12:17 2 MG Lorazepam/Syringe (Ativan Inj/ Syringe) 1 ml @ 1 mls/min Q6H PRN IV 10/22/16 11:30 11/21/16 11:29 10/24/16 12:16 1 MLS/MIN Lorazepam (Ativan Inj) 1 mg Q6H PRN IV 10/22/16 11:30 Albuterol/ Ipratropium (Duoneb) 3 ml Q4RWA INH 10/22/16 16:00 11/21/16 15:59 10/24/16 11:01 3 ML Baclofen (Lioresal Tab) 10 mg TID PO 10/22/16 14:00 11/21/16 13:59 10/24/16 08:02 10 MG Guaifenesin (Mucinex Contr Rel Tab) 600 mg Q12 PO 10/22/16 21:00 11/21/16 20:59 10/24/16 08:03 600 MG Miscellaneous Information (Order Awaiting Action) 1 ea TID N/A 10/22/16 13:00 11/21/16 12:59 Ondansetron HCl (Zofran Inj) 4 mg Q4H PRN IV 10/22/16 20:45 11/21/16 20:44 10/24/16 12:16 4 MG Zolpidem Tartrate (Ambien Tab) 10 mg HSZ PO 10/23/16 22:00 11/22/16 21:59 10/23/16 22:37 10 MG Senna (Senokot Tab) 17.2 mg QAM PO 10/24/16 10:00 11/23/16 09:59 Polyethylene (Miralax Powder Packet) 17 gm DAILY PO 10/24/16 10:00 11/23/16 09:59 Insulin Aspart (novoLOG ASPART) SLIDING SCALE G... ACHS SC 10/24/16 16:30 11/23/16 16:29 Glucose (Glucose 40% Gel) 15-30 GRAMS 15 GRAMS... UD PRN PO 10/24/16 12:30 11/23/16 12:29 Glucose (Glucose Chew Tab) 4-8 Tablets 4 Tabl... UD PRN PO 10/24/16 12:30 11/23/16 12:29 Dextrose (Dextrose 50% 50ML Syringe) 25-50ML OF 50% DW IV FOR... UD PRN IV 10/24/16 12:30 11/23/16 12:29 Glucagon (Glucagon Inj) 1 mg UD PRN SQ 10/24/16 12:30 11/23/16 12:29 I & O: 24-Hour Column 10/24/16 07:59 Intake Total 2705 ml Output Total 9475 ml Balance -6770 ml Vital Signs: Date Time Temp Pulse Resp B/P Pulse Ox O2 Delivery O2 Flow Rate FiO2 10/24/16 11:01 68 18 97 Room Air 10/24/16 08:00 Room Air 10/24/16 07:11 36.7 67 20 136/85 96 Room Air 10/24/16 07:05 69 18 94 Room Air 10/24/16 00:00 Room Air 10/23/16 23:36 36.7 64 20 139/65 98 Room Air 10/23/16 19:55 82 18 97 Room Air 10/23/16 16:10 98 Room Air 10/23/16 16:10 80 20 97 Room Air 10/23/16 15:43 36.7 71 18 133/73 95 Room Air Laboratory Results: Last 24 Hours Test 10/24/16 06:30 10/24/16 10:05 Prothrombin Time 30.6 SECONDS Prothromb Time International Ratio 2.7 Bedside Glucose 162 mg/dl
[2016-10-24 15:23] VITALS: BP 154/80; PULSE 61; TEMP 36.7; O2SAT 98
[2016-10-24] MEDS ORDERED: POTASSIUM CHLORIDE 20 MEQ TABCR PO STA (15:34)
[2016-10-24] MEDS ORDERED: FUROSEMIDE 20 MG TAB PO ONE (15:45)
[2016-10-24] MEDS ORDERED: FUROSEMIDE 40 MG TAB PO ONE (15:45)
[2016-10-24] MEDS: INSULIN ASPART 100 UNITS/ML 3 ML PEN SC SCH ×2 (16:30→20:35)
[2016-10-24] MEDS: ZOLPIDEM TARTRATE 10 MG TAB PO SCH (20:22)
[2016-10-24] MEDS: MONTELUKAST SOD 10 MG TAB PO SCH (20:23)
[2016-10-24] MEDS: RANITIDINE HCL 150 MG TAB PO SCH (20:23)
[2016-10-24] MEDS: ALPRAZOLAM 0.5 MG TAB PO SCH (20:23)
--- NOTE | 2016-10-24 21:26 | Progress Note ---
Subjective Date of Service: Oct 24, 2016. Subjective Pt evaluation today including: conversation w/ patient, physical exam, chart review, lab review, review of studies (cxr), conversation w/ cosmetic consultant ( pulmonary) Pain: none PO Intake: normal Voiding: no voiding problems states she doesn't feel much better c/o dyspnea with exertion; no dyspnea at rest c/o weight gain & abdominal bloating c/o anxiety however, she FINALLY slept last pm comfortably Problem List Medical Problems: (1) Acute asthma exacerbation Status: Acute (2) Acute bronchitis Status: Acute (3) Anxiety reaction Status: Acute (4) Asthma with exacerbation Status: Acute (5) Exacerbation of asthma Status: Acute (6) Pedal edema Status: Acute (7) Status asthmaticus Status: Acute Review of Systems Constitutional: No fever Respiratory: + cough, + dyspnea on exertion, + sputum (occasional), + wheezing , No dyspnea at rest Cardiac: No chest pain Abdomen: + constipation, No pain Objective Vital Signs Date Time Temp Pulse Resp B/P Pulse Ox O2 Delivery O2 Flow Rate FiO2 10/24/16 16:00 Room Air 10/24/16 15:23 36.7 61 20 154/80 98 Room Air 10/24/16 11:01 68 18 97 Room Air 10/24/16 08:00 Room Air 10/24/16 07:11 36.7 67 20 136/85 96 Room Air 10/24/16 07:05 69 18 94 Room Air 10/24/16 00:00 Room Air 10/23/16 23:36 36.7 64 20 139/65 98 Room Air Physical Exam General Appearance: no apparent distress, + obese ENT: pharynx normal (no thrush) Neck: no JVD Respiratory/Chest: no respiratory distress, no accessory muscle use, + decreased breath sounds (bases), + wheezing (b/l - less than previous exams) Cardiovascular: regular rate, rhythm, no gallop, no murmur Abdomen: normal bowel sounds, non tender, soft, no organomegaly Extremities: no pedal edema Neurologic/Psychiatric: alert, oriented x 3 Skin: + pertinent finding (flushed skin on face) Laboratory Results Last 24 Hours Test 10/24/16 06:30 10/24/16 10:05 10/24/16 16:26 10/24/16 20:05 Prothrombin Time 30.6 SECONDS Prothromb Time International Ratio 2.7 Bedside Glucose 162 mg/dl 130 mg/dl 141 mg/dl Assessment and Plan 46yo female with: 1. Eosinophilic lung disease / asthma with exacerbation - stable with daily, modest improvement objectively. however, she subjectively complains today of lack of improvement. repeat cxr obtained -- no infiltrates. wean steroids tomorrow? cont levaquin; day #4; change to PO. cont aggressive pulmonary toilet. bronch on hold due to high INR, continued bronchospasm, high risk of complications due to current status/obesity/etc. plan is for Wednesday for such. 2. h/o PE - coumadin on hold for bronch on Wednesday. once INR is <2 consider heparin bridge. 3. constipation - miralax + senna or dulcolax. 4. polyuria - checked FSBS and was 160. Will place on ac/hs FSBS. Last a1c was in pre-diabetic range. 5. anxiety - benzos prn 6. chronic back pain / chronic pain syndrome - pain meds prn. 7. consent obtained for midline PICC 8. resume lasix with K supplement due to modest weight gain/fluid retention from steroids Continued [facility] stay due to: multiple IV medications needed Discharge planning: home
[2016-10-24] MEDS: LEVOFLOXACIN 500 MG TAB PO SCH (21:54)
[2016-10-24 23:43] VITALS: BP 133/74; PULSE 67; TEMP 36.9; O2SAT 97
[2016-10-25] VITALS (7 sets, daily range): BP systolic 158–174; BP diastolic 74–83; PULSE 59–78; TEMP 36.6–36.9; O2SAT 98
[2016-10-25] MEDS: METHYLPREDNISOLONE IV 60 MG in SYRINGE 0 ML IV SCH ×3 (00:14→11:59)
[2016-10-25] MEDS: LORAZEPAM INJ 1 MG in SYRINGE 0.5 ML IV PRN ×4 (00:14→18:16)
[2016-10-25] MEDS: ONDANSETRON INJ 2 MG/ML 2 ML VIAL IV PRN ×5 (00:15→20:33)
[2016-10-25] MEDS: MoRPHine SULFATE 2 MG/ML CARP IV PRN ×5 (00:15→20:33)
[2016-10-25] MEDS: HYDROCODONE/ACETAMI 10/325 TAB PO PRN (03:28)
[2016-10-25 06:18] LABS: INR 1.8 (0.9-1.1); PROTHROMBIN TIME (PATIENT) 19.7 SECONDS (9.0-12.0)
[2016-10-25 06:46] LABS: CALCIUM 8.1 mg/dl (8.5-10.1); CREATININE 0.88 mg/dl (0.60-1.20); MAGNESIUM 2.9 mg/dl (1.8-2.4); POTASSIUM 4.5 mmol/L (3.5-5.1)
[2016-10-25] MEDS: ALBUT/IPRATROP 3MG/0.5MG NEB 3 ML VIAL INH SCH ×4 (06:49→19:48)
[2016-10-25] MEDS: POLYETHYLENE (MIRALAX) 17 GM PACK PO SCH (08:00)
[2016-10-25] MEDS: SENNA 8.6 MG TAB PO SCH (08:00)
[2016-10-25] MEDS: BACLOFEN 10 MG TAB PO SCH ×3 (08:19→20:32)
[2016-10-25] MEDS: FEXOFENADINE HCL 180 MG TAB PO SCH (08:19)
[2016-10-25] MEDS: GUAIFENESIN 600 MG TABCR PO SCH ×2 (08:19→20:32)
[2016-10-25] MEDS: BUDESONIDE/FORMOTEROL FUMARATE 160/4.5 60 PUFFS/INHALER INH SCH ×2 (08:20→20:32)
[2016-10-25] MEDS: INSULIN ASPART 100 UNITS/ML 3 ML PEN SC SCH ×3 (08:20→16:30)
[2016-10-25] MEDS: PANTOprazole SOD 40 MG TAB PO SCH (08:20)
[2016-10-25] MEDS: FLUTICASONE PROPIONATE NA SPR 16 GM BTL NAE SCH ×2 (08:20→20:32)
[2016-10-25] MEDS ORDERED: NURSING VERBAL MED ORDER ONE (17:45)
[2016-10-25] MEDS: RANITIDINE HCL 150 MG TAB PO SCH (20:32)
[2016-10-25] MEDS: MONTELUKAST SOD 10 MG TAB PO SCH (20:32)
[2016-10-25] MEDS: ALPRAZOLAM 0.5 MG TAB PO SCH (20:33)
[2016-10-25] MEDS: ZOLPIDEM TARTRATE 10 MG TAB PO SCH (21:28)
[2016-10-25] MEDS: LEVOFLOXACIN 500 MG TAB PO SCH (21:28)
--- NOTE | 2016-10-25 23:32 | Progress Note ---
Subjective Date of Service: Oct 25, 2016. Subjective Pt evaluation today including: conversation w/ patient, physical exam, chart review, lab review Pain: none voiced PO Intake: normal Voiding: no voiding problems "I feel much better" slept good last night still w/ dyspnea but improved can take bigger breaths occasional sputum production Problem List Medical Problems: (1) Acute asthma exacerbation Status: Acute (2) Acute bronchitis Status: Acute (3) Anxiety reaction Status: Acute (4) Asthma with exacerbation Status: Acute (5) Exacerbation of asthma Status: Acute (6) Pedal edema Status: Acute (7) Status asthmaticus Status: Acute Review of Systems Constitutional: No chills, No fever Respiratory: + cough, + dyspnea on exertion, + sputum, + wheezing Cardiac: No chest pain Abdomen: No pain Objective Vital Signs Date Time Temp Pulse Resp B/P Pulse Ox O2 Delivery O2 Flow Rate FiO2 10/25/16 18:45 78 18 98 Room Air 10/25/16 16:00 Room Air 10/25/16 15:35 75 18 98 Room Air 10/25/16 15:18 36.6 72 20 174/74 98 Room Air 10/25/16 10:58 59 18 98 Room Air 10/25/16 08:00 Room Air 10/25/16 07:24 36.9 61 22 158/77 98 Room Air 10/25/16 06:49 61 18 98 Room Air 10/25/16 00:01 Room Air 10/24/16 23:43 36.9 67 18 133/74 97 Room Air Physical Exam General Appearance: no apparent distress, + obese ENT: pharynx normal Neck: no JVD Respiratory/Chest: no respiratory distress, no accessory muscle use, + decreased breath sounds (bases), + wheezing, + pertinent finding (overall wheezing is better and airation in the bases is better) Cardiovascular: regular rate, rhythm, no gallop, no murmur Abdomen: normal bowel sounds, non tender, soft, no organomegaly Extremities: no pedal edema Laboratory Results Last 24 Hours Test 10/25/16 05:06 10/25/16 07:16 10/25/16 11:42 10/25/16 16:39 Prothrombin Time 19.7 SECONDS Prothromb Time International Ratio 1.8 Sodium Level 136 mmol/L Potassium Level 4.5 mmol/L Chloride Level 99 mmol/L Carbon Dioxide Level 27 mmol/L Anion Gap 10.0 mmol/L Blood Urea Nitrogen 18 mg/dl Creatinine 0.88 mg/dl Est Creatinine Clear Calc Drug Dose 130.4 ml/min Estimated GFR () 92.6 Estimated GFR (Non- 79.9 BUN/Creatinine Ratio 21.0 Random Glucose 138 mg/dl Calcium Level 8.1 mg/dl Magnesium Level 2.9 mg/dl Bedside Glucose 126 mg/dl 137 mg/dl 168 mg/dl Assessment and Plan 46yo female with: 1. Eosinophilic lung disease / asthma with exacerbation - improved. Wean steroids to q12h dosing. day #12/13 levaquin. cont aggressive pulmonary toilet. bronch in AM NPO after MN for such 2. h/o PE - coumadin on hold for bronch on Wednesday. 3. constipation - miralax + senna or dulcolax. Improved. 4. polyuria - resolved. 5. anxiety - benzos prn 6. chronic back pain / chronic pain syndrome - pain meds prn. 7. pre-DM - in light of high dose steroid use her FSBS are reasonable. d/c fingersticks d/c novolog progressing nicely repeat INR in am Continued [facility] stay due to: multiple IV medications needed Discharge planning: home
[2016-10-26] VITALS (22 sets, daily range): BP systolic 131–178; BP diastolic 73–124; PULSE 57–94; TEMP 36.5–37; O2SAT 93–100
[2016-10-26] MEDS ORDERED: METHYLPREDNISOLONE IV 60 MG in SYRINGE 0 ML IV SCH
[2016-10-26] MEDS: LORAZEPAM INJ 1 MG in SYRINGE 0.5 ML IV PRN ×2 (00:32→21:47)
[2016-10-26] MEDS: MoRPHine SULFATE 2 MG/ML CARP IV PRN ×5 (00:33→21:48)
[2016-10-26] MEDS: ONDANSETRON INJ 2 MG/ML 2 ML VIAL IV PRN ×4 (00:33→21:52)
[2016-10-26 05:55] LABS: INR 1.3 (0.9-1.1); PROTHROMBIN TIME (PATIENT) 14.3 SECONDS (9.0-12.0)
[2016-10-26] MEDS: ALBUT/IPRATROP 3MG/0.5MG NEB 3 ML VIAL INH SCH ×4 (07:09→19:49)
--- NOTE | 2016-10-26 07:47 | PROGRESS NOTE ---
DATE: 10/26/2016 SUBJECTIVE: The patient is comfortable this morning. She continues to have cough producing some thick sputum, but it is minimal. She states she feels 100% better than she did last week. She is scheduled for bronchoscopy this morning. OBJECTIVE: VITAL SIGNS: Her vital signs are stable and she is afebrile, blood pressure remains a bit elevated at 174/84, oxygen saturation 97% on room air, respiratory rate 16. Her weight is 157.3 kilograms. I\T\O 5030 in and 5950 out. GENERAL: According to nurses' notes and in speaking with nurses she had a good night last night, has been ambulating in the hallway, actually even made her own bed. She is tolerating her medications well. They are noted. HEENT: Unremarkable except for small posterior pharynx with a large tongue. No evidence of thrush noted. NECK: There is no neck vein distention or HJR. HEART: Regular rate and rhythm. No murmurs are heard. LUNGS: Continue to reveal some wheezing with expiration. No fremitus is noted. No crackles are noted. ABDOMEN: Soft and obese, nontender. EXTREMITIES: She has no cyanosis, clubbing or edema. LABORATORY DATA: From the is noted. Sugars have been in the 126-168 range. INR was 1.8 yesterday. IMPRESSION: 1. Bronchial asthma exacerbation. 2. Pulmonary hypertension. 3. History of pulmonary embolism. RECOMMENDATIONS: 1. At this point, I think the methylprednisolone could be stopped. She could be placed on 20 of prednisone with a taper. 2. I would consider stopping the Levaquin since I do not see any evidence of infection at this point. Her chest film looked good and she has been afebrile and her white count is reasonable. 3. Continue with antireflux regimen, weight reduction. 4. Increase activity as possible. 5. Follow up with Dr. Estrella as an outpatient. Overall, she is stable.
--- NOTE | 2016-10-26 07:52 | History & Physical Bridge Note ---
H&P Re-Evaluation Bridge Note: I have examined the patient, reviewed the History & Physical and in the interval since the performance of the History & Physical I have noted the following changes of clinical significance: No changes noted
[2016-10-26] MEDS: LORAZEPAM 2 MG/ML 1 ML VIAL IV PRN ×2 (07:59→13:55)
[2016-10-26] MEDS: POLYETHYLENE (MIRALAX) 17 GM PACK PO SCH (08:00)
[2016-10-26] MEDS: SENNA 8.6 MG TAB PO SCH (08:00)
[2016-10-26] MEDS: FLUTICASONE PROPIONATE NA SPR 16 GM BTL NAE SCH ×3 (08:00→21:43)
[2016-10-26] MEDS: BACLOFEN 10 MG TAB PO SCH ×3 (08:00→21:46)
--- NOTE | 2016-10-26 10:27 | Bronchoscopy Procedure Note ---
Bronchoscopy Procedure Note Procedure: Bronchoscopy, bronchial alveolar lavage right middle lobe, conscious sedation Consent: Obtained through the patient placed in the chart Preprocedural diagnosis: Chronic poorly controlled asthma Postprocedural diagnosis: Chronic poorly controlled asthma Analgesia: 4% gel lidocaine: Via right naris 2% liquid lidocaine: Via bronchoscopy Sedation: Versed IV: 5 mg Fentanyl IV: 125 g Procedure: The Olympus video bronchoscope was used for this procedure passed down through the right naris The right naris/posterior naris/posterior oropharynx/. Glottis: Anatomically within normal limits Glottis: Anatomically within normal limits Vocal cords: Proper abduction and abduction, anatomically within normal limits Right bronchial tree: Right mainstem: Anatomically within normal limits Right upper lobe: Anatomically within normal limits Bronchus intermedius: Anatomically within normal limits Right middle lobe: Anatomically within normal limits Right lower lobe: Anatomically within normal limits Left bronchial tree: Left mainstem: Anatomically within normal limits Left upper lobe: Anatomically within normal limits Lingula: Anatomically within normal limits Left lower lobe: Anatomically within normal limits Findings: No signs of diffuse mucus plugging appreciated Bronchial washings/lavage: Right middle lobe approximately 60 cc were introduced with 35 cc returned, mildly opaque alveolar looking fluid Complications: None Follow-up: Patient will be returned to her inpatient room and followed up in the [place] [facility]
[2016-10-26] MEDS ORDERED: LIDOCAINE 4% INH SOLN 4 ML BTL ONE (11:06)
[2016-10-26] MEDS ORDERED: LIDOCAINE HCL 2% LOCAL 50ML VIAL INFIL ONE (11:06)
[2016-10-26] MEDS ORDERED: MIDAZOLAM HCL 5 MG/ML 1 ML VIAL IV ONE ×2 (11:06→11:30)
[2016-10-26] MEDS ORDERED: FENTANYL CITRATE INJ 50 MCG/1 ML 2 ML VIAL IV ONE ×2 (11:06→11:30)
[2016-10-26] MEDS ORDERED: NURSING VERBAL MED ORDER ONE (11:15)
[2016-10-26] MEDS: BUDESONIDE/FORMOTEROL FUMARATE 160/4.5 60 PUFFS/INHALER INH SCH ×2 (13:32→21:43)
[2016-10-26] MEDS: GUAIFENESIN 600 MG TABCR PO SCH ×2 (13:33→21:44)
[2016-10-26] MEDS: FEXOFENADINE HCL 180 MG TAB PO SCH (13:33)
[2016-10-26] MEDS: PANTOprazole SOD 40 MG TAB PO SCH (13:34)
[2016-10-26] MEDS: METHYLPREDNISOLONE IV 30 MG in SYRINGE 0 ML IV SCH ×2 (14:00→23:37)
[2016-10-26] MEDS ORDERED: WARFARIN SOD 6 MG TAB PO SCH (16:00)
[2016-10-26] MEDS: LEVOFLOXACIN 500 MG TAB PO SCH (21:44)
[2016-10-26] MEDS: ZOLPIDEM TARTRATE 10 MG TAB PO SCH (21:45)
[2016-10-26] MEDS: MONTELUKAST SOD 10 MG TAB PO SCH (21:45)
[2016-10-26] MEDS: RANITIDINE HCL 150 MG TAB PO SCH (21:46)
[2016-10-26] MEDS: ALPRAZOLAM 0.5 MG TAB PO SCH (21:52)
[2016-10-27] VITALS: O2SAT 98
--- NOTE | 2016-10-27 00:11 | Progress Note ---
Subjective Date of Service: Oct 26, 2016. Subjective Pt evaluation today including: conversation w/ patient, conversation w/ family (, others at bedside), physical exam, chart review, lab review, review of studies (bronchoscopy), review of inpatient medication list Pain: right flank w/ coughing PO Intake: normal Voiding: no voiding problems I saw the patient post-bronch and she states "I feel good" Can take bigger breaths Cough/wheezing/dyspnea ALL improved eating fine ambulating fine she does state she is "weak" Problem List Medical Problems: (1) Acute asthma exacerbation Status: Acute (2) Acute bronchitis Status: Acute (3) Anxiety reaction Status: Acute (4) Asthma with exacerbation Status: Acute (5) Exacerbation of asthma Status: Acute (6) Pedal edema Status: Acute (7) Status asthmaticus Status: Acute Review of Systems Constitutional: No fever Cardiac: No chest pain, No orthopnea Abdomen: No pain Objective Vital Signs Date Time Temp Pulse Resp B/P Pulse Ox O2 Delivery O2 Flow Rate FiO2 10/26/16 19:49 94 18 98 Room Air 10/26/16 16:00 97 Room Air 10/26/16 15:00 37.0 71 19 136/73 97 Room Air 10/26/16 13:29 36.8 60 16 146/80 99 Room Air 10/26/16 12:47 36.7 63 16 147/77 93 Room Air 10/26/16 12:18 37.0 63 20 149/81 93 Room Air 10/26/16 11:53 36.7 60 17 151/84 95 Room Air 10/26/16 11:49 Nasal Cannula Mask 10/26/16 11:12 68 18 153/89 100 10/26/16 11:06 78 18 98 Room Air 10/26/16 10:45 36.5 66 17 162/84 97 Nasal Cannula 2.0 28 10/26/16 10:35 36.5 84 18 152/87 98 Nasal Cannula 2.0 28 10/26/16 10:25 36.5 60 18 159/87 97 Nasal Cannula 4.0 28 10/26/16 10:15 36.5 59 18 163/86 97 Nasal Cannula 4.0 10/26/16 10:15 63 18 131/94 100 Mask 10.0 10/26/16 10:10 82 24 173/124 100 Mask 10.0 10/26/16 10:05 81 24 159/124 100 Mask 10.0 10/26/16 10:00 71 18 159/96 100 Mask 10.0 10/26/16 09:55 77 16 178/98 100 Mask 10.0 10/26/16 09:50 60 16 158/112 100 Mask 10.0 10/26/16 09:25 57 16 162/90 100 Mask 10.0 10/26/16 08:10 Room Air 10/26/16 07:09 60 18 97 Room Air 10/26/16 07:00 36.5 58 18 154/80 95 Room Air Physical Exam General Appearance: no apparent distress, + obese ENT: pharynx normal Neck: no JVD Respiratory/Chest: no respiratory distress, no accessory muscle use, + wheezing (mild -- improved from prior exams), + pertinent finding (airation MUCH improved bases) Cardiovascular: regular rate, rhythm, no gallop, no murmur Abdomen: normal bowel sounds, non tender, soft, no organomegaly Extremities: no pedal edema Neurologic/Psychiatric: alert, oriented x 3 Skin: + pertinent finding (flushing on face) Laboratory Results Last 24 Hours Test 10/26/16 05:08 Prothrombin Time 14.3 SECONDS Prothromb Time International Ratio 1.3 Assessment and Plan 46yo female with: 1. Eosinophilic lung disease / asthma with exacerbation - improved; nearly resolved. Wean IV steroids to 30mg q12h today, then reduce prednisone to 40mg tomorrow and taper off over several days. agree with Dr. Rojo to stop levaquin cont aggressive pulmonary toilet. s/p bronch today; bronch according to report was largely normal follow cultures 2. h/o PE - coumadin was on-hold; resume; will give "loading" dose of 15mg x 1 3. constipation - miralax + senna or dulcolax. Improved. 4. polyuria - resolved. 5. anxiety - benzos prn 6. chronic back pain / chronic pain syndrome - pain meds prn. 7. pre-DM - controlled w/ diet d/c in AM Continued [facility] stay due to: multiple IV medications needed Discharge planning: home
[2016-10-27 00:20] VITALS: BP 140/72; PULSE 73; TEMP 36.5; O2SAT 96
[2016-10-27] MEDS: MoRPHine SULFATE 2 MG/ML CARP IV PRN (03:18)
--- NOTE | 2016-10-27 06:23 | PROGRESS NOTE ---
DATE: 10/27/2016 SUBJECTIVE: The patient was very comfortable this morning. She said she is ready to go home. She continues to have minimal cough which is nonproductive. She denies any chest pain, nausea or vomiting. She underwent a bronchoscopy yesterday, actually looked fairly good with no significant mucus plugging, no significant inflammation or endobronchial lesions were noted. The vocal cords moved appropriately. She is tolerating her medications well. She does sleep in a recliner and the inhalers are working well for her. PHYSICAL EXAMINATION: VITAL SIGNS: Stable. Blood pressure 140/72; oxygen saturation 96% at midnight, on room air. I\T\O was 3180 and 5250 out. Weight 159 kilograms. She was 143 kilograms on the 21 of October that probably was not a good weight. She was 157.3 kilograms on the . According to nurse's notes she did well except for the back pain. HEENT: Unremarkable except for small posterior pharynx, no thrush is noted. No tenderness noted over the face. NECK: There is no neck vein distention or HJR. No subcutaneous emphysema noted. HEART: Regular rate and rhythm, second heart sound normal. No murmurs are heard. LUNGS: Reveal very mild wheezing right at the end of expiration in the mid lung rivero bilaterally. ABDOMEN: Soft and obese, nontender. EXTREMITIES: She has no cyanosis, clubbing or edema. LABORATORY DATA: CMV, HSV, herpes simplex cultures are pending. INR yesterday was 1.3. IMPRESSION: Bronchial asthma, improved. RECOMMENDATIONS: 1. Continue with her present medications. Coumadin can be adjusted to get her INR up in the 2.0 range fairly quickly. If not, then I believe she should be placed on some Lovenox for several days. 2. Continue with prednisone and taper that fairly quickly over the next week. 3. Continue on the Symbicort and Singulair, use albuterol as needed. 4. Antireflux regimen and weight reduction. We discussed this at great length. 5. Avoid any narcotics. 6. Follow up with Mickey Mejia PA-C in 1-2 weeks, as an outpatient. JOVANY
[2016-10-27 07:20] VITALS: BP 142/81; PULSE 66; TEMP 36.8; O2SAT 98
[2016-10-27] MEDS: ALBUT/IPRATROP 3MG/0.5MG NEB 3 ML VIAL INH SCH ×2 (07:31→12:06)
[2016-10-27 07:32] VITALS: PULSE 63; O2SAT 97
[2016-10-27] MEDS ORDERED: WARFARIN SOD 5 MG TAB PO SCH (08:00)
[2016-10-27] MEDS: SENNA 8.6 MG TAB PO SCH (08:00)
[2016-10-27] MEDS: POLYETHYLENE (MIRALAX) 17 GM PACK PO SCH (08:00)
[2016-10-27] MEDS: FLUTICASONE PROPIONATE NA SPR 16 GM BTL NAE SCH (08:29)
[2016-10-27] MEDS: PANTOprazole SOD 40 MG TAB PO SCH (08:30)
[2016-10-27] MEDS: BACLOFEN 10 MG TAB PO SCH (08:30)
[2016-10-27] MEDS: FEXOFENADINE HCL 180 MG TAB PO SCH (08:30)
[2016-10-27] MEDS: BUDESONIDE/FORMOTEROL FUMARATE 160/4.5 60 PUFFS/INHALER INH SCH (08:30)
[2016-10-27] MEDS: GUAIFENESIN 600 MG TABCR PO SCH (08:30)
[2016-10-27] MEDS: LORAZEPAM 2 MG/ML 1 ML VIAL IV PRN (08:41)
[2016-10-27] MEDS ORDERED: LRS10 PO (10:56)
[2016-10-27] MEDS ORDERED: PRED10TA PO (10:56)
[2016-10-27] MEDS ORDERED: ATV/1 PO (10:56)
[2016-10-27] MEDS ORDERED: HYDR-4383 PO (10:56)
[2016-10-27] MEDS ORDERED: GFNSR600 PO (10:56)
[2016-10-27 11:01] LABS: INR 1.1 (0.9-1.1); PROTHROMBIN TIME (PATIENT) 11.5 SECONDS (9.0-12.0)
--- NOTE | 2016-10-27 11:03 | Discharge Instructions ---
Discharge Instructions Date of Service Oct 27, 2016. Admission Reason for Admission: Asthma exacerbation Discharge Discharge Diagnosis / Problem: Asthma exacerbation Discharge Goals Goal(s): Improve function, Improve disease control Activity Recommendations Activity Limitations: as noted below Lifting Limitations: none Exercise/Sports Limitations: gradually increase as tolerated Shower/Bathe: no limitations Driving or Machine Use: no limitations . Instructions / Follow-Up Instructions / Follow-Up Pulmonology, Dr. Estrella - call office for hospital/bronchoscopy follow-up. PCP - 5-7 days. Current Hospital Diet Patient's current hospital diet: Regular Diet Discharge Diet Recommended Diet: Regular Diet Procedures Procedures Performed: Bronchoscopy. Pending Studies Studies pending at discharge: yes List of pending studies: Final culture results from bronchial washings. Laboratory Results Last 24 Hours Test 10/27/16 10:30 Prothrombin Time 11.5 SECONDS Prothromb Time International Ratio 1.1 Work Instructions Additional Instructions: May return to work full duty (no restrictions) on October. Medical Emergencies . Who to Call and When: Medical Emergencies: If at any time you feel your situation is an emergency, please call 911 immediately. . Non-Emergent Contact Non-Emergency issues call your: Primary Care Provider . . "Provider Documentation" section prepared by Steven Shore. VTE Core Measure Inpt VTE Proph given/why not?: Warfarin (Coumadin)
[2016-10-27 11:28] VITALS: BP 142/81; TEMP 36.8; O2SAT 97
--- NOTE | 2016-10-27 11:57 | Discharge Summary ---
Discharge Summary Date of Service Oct 27, 2016. Discharge Summary Admission Date: Oct 21, 2016 at 20:18 Discharge Date: Oct 27, 2016 Discharge Disposition: Home Principal Diagnosis: Asthma exacerbation Problems/Secondary Diagnoses: Asthma exacerbation, recent PE. Immunizations: Have You Had Influenza Vaccine: Yes Influenza Vaccine Date: Jun 06, 2012 History of Tetanus Vaccine?: Yes Tetanus Immunization Date: Dec 06, 2007 History of Pneumococcal: No History of Hepatitis B Vaccine: Yes Hepatitis Immunization Date: Dec 06, 2007 Procedures: Bronchoscopy 10-26-16. Consultations: Pulmonology - Dr. Estrella and Dr. Rojo. Medication Reconciliation New Medications: Prednisone (Prednisone) 10 Mg Tab 10 MG PO DIRECTED for 14 Days, #26 TAB NS Baclofen (Baclofen) 10 Mg Tab 10 MG PO TID for 10 Days, #30 TAB 0 Refills Guaifenesin Ext Rel (Mucinex Ext Rel) 600 Mg Tabcr 600 MG PO Q12 for 10 Days, #20 0 Refills Changed Medications: Lorazepam (Ativan) 1 Mg Tab 1 TAB PO Q8 PRN for Anxiety/Agitation for 10 Days, #30 TAB 0 Refills (Changed from: Q12; 10; Refills: ) Continued Medications: Alprazolam (Xanax) 2 Mg Tab 2 MG PO HS, TAB Budesonide/Formoterol Fumarate (Symbicort 160/4.5 Inhaler ) Aero 2 PUFFS INH BID, INHALER Cyanocobalamin (Cyanocobalamin) 1,000 Mcg/Ml Inj 1000 MCG SQ WK ON Epinephrine (Epipen) 0.3 Mg/0.3 Ml Inj 0.3 MG IM UD, BOX WITH NUCALA Fexofenadine Hcl (Susanne) 180 Mg Tab 180 MG PO QAM, TAB Fluticasone Propionate (Nasal) (Flonase Allergy Relief) 50 Mcg/Act Spr 1 SPRAYS MUKESH BID Furosemide (Lasix) 20 Mg Tab 20 MG PO DAILY PRN for SWELLING, TAB Hydrocodone W/ Homatropine (Hycodan 5/1.5MG 5 Ml) 1 Syp Syp 5 ML PO Q6H PRN for Cough, #60 ML Hydrocodone/Acetaminophen ([place] 10/325 Tab) 1 Tab Tab 1 TAB PO Q6 PRN for Pain for 10 Days, #10 TAB 0 Refills (This prescription has been renewed) PATIENT REPORTS VERY RARE USE Ipratropium-Albuterol (Duoneb) 3 Ml Nebu 1 TREATMENT INH Q4 PRN for COPD, INHA Ipratropium-Albuterol (Combivent Respimat) 1 Aer Aer 2 PUFFS INH Q2H, INH Mepolizumab (Nucala) 100 Mg Inj 100 MG INJ MONTHLY EVERY 28 DAYS RECEIVED ON 07/16/16 Montelukast Sodium (Singulair) 10 Mg Tab 10 MG PO HS, TAB Naproxen (Aleve) 220 Mg Tab 440 MG PO BID, TAB Norethin Acet & Estrad-Fe (Oz Fe 1.5/30 1.5-30 mg-Mcg) 1 Tab Tab 1 TAB PO DAILY Omeprazole (Prilosec) 20 Mg Capcr 20 MG PO QAM, CAP Ranitidine Hcl (Zantac) 150 Mg Tab 150 MG PO HS, TAB Tiotropium [place] Monohydrate (Spiriva Respimat) 1.25 Mcg/Act Aer 1 PUFFS INH BID Warfarin Sod (Jantoven) 10 Mg Tab 10 MG PO 6XWK, TAB EXCEPT WEDNESDAY Warfarin Sod (Jantoven) 6 Mg Tab 12 MG PO WEDNESDAY, TAB Zolpidem Tartrate (Ambien Cr) 6.25 Mg Tab 6.25 MG PO HS PRN for Sleep, TAB Discontinued Medications: Amoxicillin & Pot Clavulanate (Augmentin 875-125 mg) 1 Tab Tab 1 TAB PO BID, TAB Discharge Exam A 10 system review was performed and all were negative. Patient reports having chronic expiratory wheezes. Also having increased anxiety as a result of steroid use. GEN: Awake, alert, and oriented x 3. Not in acute distress HEENT: Tm's intact, no inflammation, EOMI, PERRLA, MMM Neck: Soft, supple Lungs: + exp wheezes b/l with diffuse rhonchi. Heart: REG, nrl S1S2 without murmurs, rubs or gallops Abdomen: Soft, NT, ND, + BS EXT: No C/C/E NEURO: CN's II-XII grossly intact, non-focal Skin: warm, dry, no rashes PSYCH: pleasant, cooperative. Hospital Course Patient was admitted with increased SOB and wheezing. She was being treated as an outpatient with augmentin and prednisone and was not improving. 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 She also had a PE in the recent past and is told to remain on anticoagulation for 3 years. Her INR was therapeutic on admission, but warfarin was held due to bronch and has been restarted the day prior to discharge. I see wording for COPD exacerbation on the chart, but pulmonology referred to her as having asthma exacerbation therefore I will follow with this diagnosis. She was given Levaquin during hospitalization, but following bronch, pulmonology and the hospitalist following agreed she did not require any further antibiotics. On a separate issue, she has a history of chronic low back pain which causes her at home to sleep on a specific recliner to have less pain upon waking. She was given a trail of baclofen during this hospitalization which did provide her benefit without reported or identified side effect. I did discharge her on this new medication. Dr. Estrella mentioned the importance of identifying and treating possible underlying OLIMPIA, as this untreated, can make asthma control difficult. I advised her to check an INR on 2-3 days following discharge. She received a "loading dose" of warfarin 15mg yesterday. She will be taking her usual dosing from today forward. I hand wrote a work excuse for her to return full duty on November 04, 2016. I advised her to see her PCP in the interim such that if she requires more time to recover before returning to work, this can be extended. Total Time Spent: Greater than 30 minutes This includes examination of the patient, discharge planning, medication reconciliation, and communication with other providers. Discharge Instructions Please refer to the electronic Patient Visit Report (Discharge Instructions) for additional information. Follow-Up PCP in 5-7 days. PulmonologyDr. Estrella - call office for follow up appointment.
[2016-10-27 12:07] VITALS: PULSE 63; O2SAT 97
[2016-10-27] MEDS: HYDROCODONE/ACETAMI 10/325 TAB PO PRN (12:19)
[2016-11-19 17:49] LABS: HERPES SIMPLEX CULT SOURCE OTHER-BAL/RML; HERPES SIMPLEX VIRUS CULT NOT ISOLATED (NOT ISOLATED)
== END 2016-10-27 13:30 | disposition home or self-care (01) | DRG 167 ==
LOC: CANRESERV → ENRESERVDT → ENRESERVTM → C.EDB 17:33 → C.4E 20:18
PROVIDERS: ADMIT Internal Medicine; ATTEND Hospitalist
PROC: 0B9D8ZX Drainage of Right Middle Lung Lobe, Via Natural or Artificial Opening Endoscopic, Diagnostic (ICD-10-PCS; principal; 2016-10-26)
DX: J45.901 Unspecified asthma with (acute) exacerbation (principal); J44.0 Chronic obstructive pulmonary disease with (acute) lower respiratory infection; J44.1 Chronic obstructive pulmonary disease with (acute) exacerbation; Z68.43 Body mass index [BMI] 50.0-59.9, adult; E66.01 Morbid (severe) obesity due to excess calories; M54.5 Low back pain; Z86.711 Personal history of pulmonary embolism; Z79.01 Long term (current) use of anticoagulants; G89.4 Chronic pain syndrome; K59.00 Constipation, unspecified; F41.9 Anxiety disorder, unspecified; R35.8 Other polyuria; R73.03 Prediabetes; Z87.891 Personal history of nicotine dependence; Z83.3 Family history of diabetes mellitus; Z82.49 Family history of ischemic heart disease and other diseases of the circulatory system; K21.9 Gastro-esophageal reflux disease without esophagitis; D72.1 Eosinophilia; G47.33 Obstructive sleep apnea (adult) (pediatric); I10 Essential (primary) hypertension; G47.00 Insomnia, unspecified

== ENCOUNTER → 2017-03-16 | Outpatient (CLI) | payer OTHER ==
[~2017-03-16] MED LIST changes: +ENOX120I SQ; +ENOX30IN4 SQ; +ERGO1CAP41 PO; +GFNSR600 PO; +HYDR-4079 PO; -HYDR5SYP11 PO; +LRS10 PO; +NORE-18 PO; +PRED20TA PO; -PRED50TA PO
== END | disposition home or self-care (01) ==
LOC: C.PATHSPEC 11:30
PROVIDERS: ATTEND Obstetrics & Gynecology
DX: N93.8 Other specified abnormal uterine and vaginal bleeding (principal)

== ENCOUNTER → 2017-03-17 | Outpatient (CLI) | payer OTHER ==
[2017-03-17 13:11] LABS: BASO % 0.3 %; BASO ABS # 0.03 K/uL (0-0.2); COMPLETE YES; EOS % 3.8 %; HEMATOCRIT 37.4 % (37-47); IG% 0.2 %; LYMPH % 24.2 %; MEAN CELL VOLUME 83.1 fL (80-100); MEAN CORPUSCULAR HEMOGLOBIN 27.1 pg (25-34); MEAN CORPUSCULAR HGB CONC 32.6 g/dl (32-36); MEAN PLATELET VOLUME 9.7 fL (7.4-10.4); MONO % 5.2 %; NEUT % 66.3 %; PLATELET COUNT 392 K/uL (130-400); WHITE BLOOD COUNT 10.33 K/uL (4.8-10.8)
== END | disposition home or self-care (01) ==
LOC: C.LAB 12:34
PROVIDERS: ATTEND Internal Medicine Pulmonary Disease
DX: D64.9 Anemia, unspecified (principal); J45.50 Severe persistent asthma, uncomplicated

== ENCOUNTER 2017-05-22 08:16 | Emergency (ER) | payer OTHER ==
[~2017-05-22] VITALS: Ht 172.7 cm; Wt 150.0 kg
[~2017-05-22 08:16] MED LIST changes: -ENOX120I SQ; -ENOX30IN4 SQ; -ERGO1CAP41 PO; -HYDR-4079 PO; -NORE-18 PO; -PRED20TA PO
[2017-05-22 08:18] VITALS: TEMP 36.7; Ht 172.7 cm; Wt 150.0 kg
[2017-05-22] MEDS ORDERED: ALBUT/IPRATROP 3MG/0.5MG NEB 3 ML VIAL INH STA (08:25)
[2017-05-22] MEDS ORDERED: LORAZEPAM 1 MG TAB SL STA (08:25)
[2017-05-22] MEDS ORDERED: METHYLPREDNISOLONE 125 MG VIAL IV STA (08:26)
--- NOTE | 2017-05-22 08:50 | DIAGNOSTIC IMAGING REPORT ---
SINGLE VIEW CHEST CLINICAL HISTORY: Asthma. FINDINGS: An AP, portable, upright chest radiograph is compared to study dated 10/24/2016 and correlated with chest CT dated 05/28/2015. The examination is degraded by portable technique, large body habitus, and patient rotation. The cardiomediastinal silhouette is unremarkable. The lungs and pleural spaces are clear. No pneumothorax is seen. The bony thorax is grossly intact. IMPRESSION: No active disease in the chest. Electronically signed by: Arias Montenegro M.D. 05/22/2017 8:49 AM Dictated Date/Time: 05/22/2017 8:48 AM
[2017-05-22 09:07] LABS: BASO % 0.2 %; BASO ABS # 0.02 K/uL (0-0.2); COMPLETE YES; EOS % 2.5 %; HEMATOCRIT 36.3 % (37-47); IG% 0.3 %; LYMPH % 22.1 %; LYMPH ABS # 2.35 K/uL (1.2-3.4); MEAN CELL VOLUME 82.9 fL (80-100); MEAN CORPUSCULAR HEMOGLOBIN 28.5 pg (25-34); MEAN CORPUSCULAR HGB CONC 34.4 g/dl (32-36); MEAN PLATELET VOLUME 9.9 fL (7.4-10.4); MONO % 5.8 %; NEUT % 69.1 %; PLATELET COUNT 360 K/uL (130-400); RED BLOOD COUNT 4.38 M/uL (4.2-5.4); WHITE BLOOD COUNT 10.61 K/uL (4.8-10.8)
[2017-05-22 09:14] LABS: BUN/CREATININE RATIO 13.7 (10-20); CREATININE 0.76 mg/dl (0.60-1.20); POTASSIUM 3.6 mmol/L (3.5-5.1)
[2017-05-22 09:19] LABS: INR 1.1 (0.9-1.1); PARTIAL THROMBOPLASTIN RATIO 1.2; PROTHROMBIN TIME (PATIENT) 11.6 SECONDS (9.0-12.0)
[2017-05-22] MEDS ORDERED: NORE-18 PO (09:19)
[2017-05-22] MEDS ORDERED: HYDR-4079 PO (09:20)
[2017-05-22] MEDS ORDERED: ERGO1CAP41 PO (09:21)
--- NOTE | 2017-05-22 09:22 | EMERGENCY ROOM VISIT NOTE ---
History Report prepared by Iona: Ginny Wakefield Under the Supervision of: Dr. Nicky Shankar M.D. First contact with patient: 08:19 Chief Complaint: RESPIRATORY PROBLEMS History of Present Illness The patient is a 46 year old female who presents to the Emergency Room with complaints of persistent shortness of breath that started this morning. She states that she has been having problems all week. She also complains of a cough , chest pain, back pain, and back spasms. The patient states that she had a major asthma attack a couple of days ago. She says that her symptoms got better with duoneb and her inhaler. The patient states her legs are normally very swollen. She notes that her last chest x-ray was months ago. The patient states that her symptoms feel similar to an asthma exacerbation and not pneumonia. She states that she is additionally feeling very anxious. The patient denies any abdominal pain. Source of History: patient Onset: This morning Position: other (global) Quality: other (shortness of breath) Timing: other (persistent) Associated Symptoms: + cough, + chest pain, + SOB, + back pain, No abdominal pain Note: The patient states that she is also experiencing back spasms. Review of Systems See HPI for pertinent positives & negatives. A total of 10 systems reviewed and were otherwise negative. Past Medical & Surgical Medical Problems: (1) Anxiety (2) Asthma (3) Chronic obstructive lung disease (4) COPD exacerbation (5) Hernia repair (6) Irritable colon Surgical Problems: (1) H/O hernia repair (2) History of cholecystectomy Family History Diabetes mellitus FH ischemic heart disease Social History Smoking Status: Never Smoker Alcohol Use: occasionally Marital Status: Housing Status: lives with family Occupation Status: employed Current/Historical Medications Scheduled Alprazolam (Xanax), 2 MG PO HS Budesonide/Formoterol Fumarate (Symbicort 160/4.5 Inhaler ), 2 PUFFS INH BID Cyanocobalamin (Cyanocobalamin), 1,000 MCG SQ WK Enoxaparin (Lovenox), 120 MG SQ Q12H Enoxaparin (Lovenox), 30 MG SQ Q12H Ergocalciferol (Vitamin D 84707 Unit), 1 CAP PO WK Fexofenadine Hcl (Susanne), 180 MG PO QAM Fluticasone Propionate (Nasal) (Flonase Allergy Relief), 1 SPRAYS MUKESH BID Ipratropium-Albuterol (Combivent Respimat), 2 PUFFS INH Q2H Montelukast Sodium (Singulair), 10 MG PO HS Naproxen (Aleve), 440 MG PO BID Norethindrone (Contraceptive) ([place]), 1 TAB PO DAILY Omeprazole (Prilosec), 20 MG PO QAM Prednisone (Prednisone), 40 MG PO DAILY Ranitidine Hcl (Zantac), 150 MG PO HS Tiotropium [place] (Spiriva Respimat), 1 PUFFS INH BID Warfarin Sod (Jantoven), 10 MG PO 6XWK Warfarin Sod (Augtoven), 12 MG PO WEDNESDAY Scheduled PRN Furosemide (Lasix), 20 MG PO DAILY PRN for SWELLING Hydrocodone/Acetaminophen 10MG/325MG ([place] 10MG/325MG), 1 TAB PO Q6H PRN for Pain Ipratropium-Albuterol (Duoneb), 1 TREATMENT INH Q4 PRN for COPD Zolpidem Tartrate (Ambien Cr), 6.25 MG PO HS PRN for Sleep Allergies Coded Allergies: Adhesives (Verified Allergy, Intermediate, TAPE- SEVERE ITCHING, 05/22/17) Chlorhexidine (Verified Allergy, Intermediate, ITCHING, 05/22/17) Clarithromycin (Verified Adverse Reaction, Intermediate, NAUSEA, 05/22/17) Clindamycin (Verified Adverse Reaction, Mild, NAUSEA, 05/22/17) Tramadol (Verified Adverse Reaction, Mild, dizziness,SYNCOPE, 05/22/17) Physical Exam Vital Signs Date Time Temp Pulse Resp B/P (MAP) Pulse Ox O2 Delivery O2 Flow Rate FiO2 05/22/17 12:13 76 18 126/79 99 05/22/17 11:03 76 16 133/79 99 Room Air 05/22/17 08:48 77 26 104/73 99 Room Air 05/22/17 08:27 81 05/22/17 08:21 97 Room Air 05/22/17 08:18 36.7 88 30 144/109 97 Room Air Physical Exam Vital signs reviewed. General: Well-appearing female, in no significant distress. Anxious. HEENT: No scleral icterus, PERRLA, neck supple. Atraumatic. Cardiovascular: Regular rate and rhythm, no extra sounds. Pulmonary: Mild inspiratory wheezing. Forced expiratory wheezing. Abdomen: Obese. Soft and nontender. Musculoskeletal: No significant peripheral edema. Atraumatic Neurologic: Patient awake alert and oriented x 3 Skin: Warm, dry, no rash Medical Decision & Procedures ER Provider Diagnostic Interpretation: Radiology results as stated below per my review and radiologist interpretation SINGLE VIEW CHEST CLINICAL HISTORY: Asthma. FINDINGS: An AP, portable, upright chest radiograph is compared to study dated 10/24/2016 and correlated with chest CT dated 05/28/2015. The examination is degraded by portable technique, large body habitus, and patient rotation. The cardiomediastinal silhouette is unremarkable. The lungs and pleural spaces are clear. No pneumothorax is seen. The bony thorax is grossly intact. IMPRESSION: No active disease in the chest. Electronically signed by: Arias Montenegro M.D. 05/22/2017 8:49 AM Dictated Date/Time: 05/22/2017 8:[address] ANGIOGRAM OF THE CHEST CLINICAL HISTORY: Atypical chest pain. COMPARISON STUDY: Chest x-ray dated 05/22/2017. Chest CT dated 05/28/2015. TECHNIQUE: Following the IV administration of 106 cc of Optiray 320, CT angiogram of the chest was performed from the upper abdomen to the thoracic inlet utilizing the pulmonary embolus protocol. Images are reviewed in the axial, sagittal, and coronal planes. 3-D MIPS images are created and assessed. IV contrast was administered without complication. A dose lowering technique was utilized adhering to the principles of ALARA. The examination is degraded by large body habitus, and by streak artifact from the body wall abutting the CT gantry. Examination is also degraded by suboptimal contrast opacification of the pulmonary arteries. CT DOSE: 657.14 mGy.cm FINDINGS: Thyroid: Imaged portions of the thyroid gland are normal in size and attenuation. Thoracic aorta: The thoracic aorta is normal in caliber and demonstrates bovine variant arch anatomy. No dissection is seen. Pulmonary vasculature: The pulmonary trunk is normal in caliber. There are no central filling defects within the main or lobar branches to suggest pulmonary embolus. Evaluation of the peripheral vessels is severely compromised by lack of contrast opacification. Heart: The heart is normal in size and configuration, and without pericardial effusion. Lungs and pleural spaces: The lungs and pleural spaces are clear. Mediastinum: There is no mediastinal lymphadenopathy. Emperatriz: Clear. Axillae: There is no axillary lymphadenopathy. Upper abdomen: Partially visualized upper abdominal viscera is within normal limits. Skeletal structures: No lytic or blastic bony lesions are seen. IMPRESSION: 1. There is no evidence of central pulmonary embolus in the main or lobar pulmonary arteries. Evaluation of the segmental and subsegmental branches is significant degraded by poor contrast opacification. 2. There is no airspace consolidation or pleural effusion Electronically signed by: Arias Montenegro M.D. 05/22/2017 10:13 AM Dictated Date/Time: 05/22/2017 10:04 AM Laboratory Results 05/22/17 08:30 Red Blood Count 4.38, Mean Corpuscular Volume 82.9, Mean Corpuscular Hemoglobin 28.5, Mean Corpuscular Hemoglobin Concent 34.4, Mean Platelet Volume 9.9, Neutrophils (%) (Auto) 69.1, Lymphocytes (%) (Auto) 22.1, Monocytes (%) (Auto) 5.8, Eosinophils (%) (Auto) 2.5, Basophils (%) (Auto) 0.2, Neutrophils # (Auto) 7.32, Lymphocytes # (Auto) 2.35, Monocytes # (Auto) 0.62, Eosinophils # (Auto) 0.27, Basophils # (Auto) 0.02 05/22/17 08:30 Test 05/22/17 08:30 White Blood Count 10.61 K/uL (4.8-10.8) Red Blood Count 4.38 M/uL (4.2-5.4) Hemoglobin 12.5 g/dL (12.0-16.0) Hematocrit 36.3 % (37-47) Mean Corpuscular Volume 82.9 fL (80-100) Mean Corpuscular Hemoglobin 28.5 pg (25-34) Mean Corpuscular Hemoglobin Concent 34.4 g/dl (32-36) Platelet Count 360 K/uL (130-400) Mean Platelet Volume 9.9 fL (7.4-10.4) Neutrophils (%) (Auto) 69.1 % Lymphocytes (%) (Auto) 22.1 % Monocytes (%) (Auto) 5.8 % Eosinophils (%) (Auto) 2.5 % Basophils (%) (Auto) 0.2 % Neutrophils # (Auto) 7.32 K/uL (1.4-6.5) Lymphocytes # (Auto) 2.35 K/uL (1.2-3.4) Monocytes # (Auto) 0.62 K/uL (0.11-0.59) Eosinophils # (Auto) 0.27 K/uL (0-0.5) Basophils # (Auto) 0.02 K/uL (0-0.2) RDW Standard Deviation 46.3 fL (36.4-46.3) RDW Coefficient of Variation 15.3 % (11.5-14.5) Immature Granulocyte % (Auto) 0.3 % Immature Granulocyte # (Auto) 0.03 K/uL (0.00-0.02) Prothrombin Time 11.6 SECONDS (9.0-12.0) Prothromb Time International Ratio 1.1 (0.9-1.1) Activated Partial Thromboplast Time 30.8 SECONDS (21.0-31.0) Partial Thromboplastin Ratio 1.2 Anion Gap 7.0 mmol/L (3-11) Est Creatinine Clear Calc Drug Dose 146.6 ml/min Estimated GFR () 110.6 Estimated GFR (Non- 95.4 BUN/Creatinine Ratio 13.7 (10-20) Calcium Level 9.0 mg/dl (8.5-10.1) Laboratory results per my review. Medications Administered Medications (Trade) Dose Ordered Sig/Johnathan Route Start Time Stop Time Status Last Admin Dose Admin Albuterol/ Ipratropium (Duoneb) 3 ml NOW STAT INH 05/22/17 08:25 05/22/17 08:27 DC 05/22/17 08:31 3 ML Lorazepam (Ativan Tab) 1 mg NOW STAT SL 05/22/17 08:25 05/22/17 08:27 DC 05/22/17 08:31 1 MG Methylprednisolone Sodium Succinate (Solu-Medrol IV) 125 mg NOW STAT IV 05/22/17 08:26 05/22/17 08:27 DC 05/22/17 08:31 125 MG Warfarin Sodium (Coumadin Tab) 10 mg NOW ONCE PO 05/22/17 11:00 05/22/17 11:01 DC 05/22/17 11:10 10 MG Enoxaparin Sodium (Lovenox Inj) 150 mg NOW STAT SQ 05/22/17 10:48 05/22/17 10:54 DC 05/22/17 11:11 150 MG ECG Indication: SOB/dyspnea Rate (beats per minute): 80 Rhythm: normal sinus Findings: no acute ischemic change, no ectopy, other (poor quality baseline) ED Course 0820: Past medical records reviewed. The patient was evaluated in room A10. A complete history and physical examination was performed. 0825: Ativan Tab 1 mg SL, Duoneb 3 ml INH. 0826: Solu-Medrol IV 125 mg IV. 1048: Ordered Lovenox Inj 150 mg SQ. 1100: Ordered Coumadin Tab 10 mg PO. 1200: I reevaluated the patient and she is resting comfortably. I discussed the exam findings with her and I discussed the treatment plan. She verbalized complete understanding and agreement. She is ready for discharge. Medical Decision Differential diagnosis: Etiologies such as infections, reactive airway disease, pneumonia, pneumothorax , COPD, CHF, cardiac ischemia, pulmonary embolism, musculoskeletal, gastrointestinal, as well as others were entertained. This patient was evaluated and appeared to be in some discomfort and anxious. Patient had forced expiratory wheezes. She was given a DuoNeb treatment and IV Solu-Medrol. She was given Ativan 1 mg orally. The patient has a negative chest x-ray. Patient's INR is found to be 1.1. Given her presentation and history of PE, CT scan of the chest was performed and is negative for PE. Patient was given 150 mg of subcutaneous Lovenox. She was given 10 mg of Coumadin. On reevaluation she was feeling much improved. She will be placed on Lovenox 150 mg twice a day for the next several days and will initiate Coumadin 12 mg daily for the next 3 days. Her INR will be repeated on the third day. It is unclear if the patient was actually compliant with her Coumadin. She states she is eating more greens lately. She was placed on prednisone 40 mg daily for 4 more days. She'll follow-up with her PCP this week for reevaluation and return to the ER for worsening of symptoms or any medical concerns. Medication Reconcilliation Current Medication List: was personally reviewed by me Impression Primary Impression: Asthma exacerbation Additional Impression: Subtherapeutic international normalized ratio (INR) Scribe Attestation The scribe's documentation has been prepared under my direction and personally reviewed by me in its entirety. I confirm that the note above accurately reflects all work, treatment, procedures, and medical decision making performed by me. Departure Information Dispostion Home / Self-Care Prescriptions Prednisone (Prednisone) 20 Mg Tab 40 MG PO DAILY, #8 TAB Prov: Nicky Shankar M.D. 05/22/17 Enoxaparin (Lovenox) 30 Mg/0.3 Ml Inj 30 MG SQ Q12H for 7 Days, #14 SYR Prov: Nicky Shankar M.D. 05/22/17 Enoxaparin (Lovenox) 120 Mg/0.8 Ml Inj 120 MG SQ Q12H for 7 Days, #14 SYR Prov: Nicky Shankar M.D. 05/22/17 Referrals Pro,Ramon Mcguire M.D. (PCP) Forms HOME CARE DOCUMENTATION FORM, IMPORTANT VISIT INFORMATION, WORK / SCHOOL INSTRUCTIONS Patient Instructions My [facility] Additional Instructions Diagnosis: Asthma exacerbation, subtherapeutic INR Lovenox 150 mg twice daily for up to 7 days. Coumadin 12 mg daily for the next 3-4 days. Have your INR repeated in 3 days, Wednesday. Ask your primary care physician for further direction regarding anticoagulation. Prednisone 40 mg daily for 4 more days. Follow-up with Dr. العراقي this week for reevaluation. Return to the ER for worsening of symptoms or any medical concerns. Problem Qualifiers
[2017-05-22] MEDS ORDERED: OPTIRAY 320 IV PRN (09:45)
--- NOTE | 2017-05-22 10:14 | DIAGNOSTIC IMAGING REPORT ---
CT ANGIOGRAM OF THE CHEST CLINICAL HISTORY: Atypical chest pain. COMPARISON STUDY: Chest x-ray dated 05/22/2017. Chest CT dated 05/28/2015. TECHNIQUE: Following the IV administration of 106 cc of Optiray 320, CT angiogram of the chest was performed from the upper abdomen to the thoracic inlet utilizing the pulmonary embolus protocol. Images are reviewed in the axial, sagittal, and coronal planes. 3-D MIPS images are created and assessed. IV contrast was administered without complication. A dose lowering technique was utilized adhering to the principles of ALARA. The examination is degraded by large body habitus, and by streak artifact from the body wall abutting the CT gantry. Examination is also degraded by suboptimal contrast opacification of the pulmonary arteries. CT DOSE: 657.14 mGy.cm FINDINGS: Thyroid: Imaged portions of the thyroid gland are normal in size and attenuation. Thoracic aorta: The thoracic aorta is normal in caliber and demonstrates bovine variant arch anatomy. No dissection is seen. Pulmonary vasculature: The pulmonary trunk is normal in caliber. There are no central filling defects within the main or lobar branches to suggest pulmonary embolus. Evaluation of the peripheral vessels is severely compromised by lack of contrast opacification. Heart: The heart is normal in size and configuration, and without pericardial effusion. Lungs and pleural spaces: The lungs and pleural spaces are clear. Mediastinum: There is no mediastinal lymphadenopathy. Emperatriz: Clear. Axillae: There is no axillary lymphadenopathy. Upper abdomen: Partially visualized upper abdominal viscera is within normal limits. Skeletal structures: No lytic or blastic bony lesions are seen. IMPRESSION: 1. There is no evidence of central pulmonary embolus in the main or lobar pulmonary arteries. Evaluation of the segmental and subsegmental branches is significant degraded by poor contrast opacification. 2. There is no airspace consolidation or pleural effusion Electronically signed by: Arias Montenegro M.D. 05/22/2017 10:13 AM Dictated Date/Time: 05/22/2017 10:04 AM
[2017-05-22] MEDS ORDERED: ENOXAPARIN 150 MG/1ML SYR SQ STA (10:48)
[2017-05-22] MEDS ORDERED: WARFARIN SOD 5 MG TAB PO ONE (11:00)
[2017-05-22] MEDS ORDERED: ENOX30IN4 SQ (12:07)
[2017-05-22] MEDS ORDERED: PRED20TA PO (12:07)
[2017-05-22] MEDS ORDERED: ENOX120I SQ (12:07)
[2017-05-22 12:13] VITALS: BP 126/79; PULSE 76; O2SAT 99
== END 2017-05-22 12:15 | disposition home or self-care (01) ==
LOC: C.EDB 08:18 → C.EDA 12:15
DX: J45.901 Unspecified asthma with (acute) exacerbation (principal); R79.1 Abnormal coagulation profile; E66.9 Obesity, unspecified; F41.9 Anxiety disorder, unspecified; J44.9 Chronic obstructive pulmonary disease, unspecified; Z90.49 Acquired absence of other specified parts of digestive tract; Z83.3 Family history of diabetes mellitus; Z82.49 Family history of ischemic heart disease and other diseases of the circulatory system; Z79.01 Long term (current) use of anticoagulants; Z79.899 Other long term (current) drug therapy

== ENCOUNTER 2017-07-09 10:40 | Emergency (ER) | payer OTHER ==
[~2017-07-09] VITALS: Ht 167.6 cm; Wt 159.0 kg
[~2017-07-09 10:40] MED LIST changes: -ATV/1 PO; +BACL10TA PO; +CMD5 PO; -EPP3/2 IM; +ERGO500011 PO; -GFNSR600 PO; +HYDR-4079 PO; -HYDR-4383 PO; -LRS10 PO; -MEPO1INJ INJ; +NORE-18 PO; -NORE1TAB93 PO; +WARF-237 PO; -WARF10TA4 PO; -WARF6TAB5 PO
[2017-07-09 10:43] VITALS: TEMP 36.4; Ht 167.6 cm; Wt 159.0 kg
[2017-07-09 11:12] VITALS: O2SAT 100
[2017-07-09] MEDS ORDERED: ALBUT/IPRATROP 3MG/0.5MG NEB 3 ML VIAL INH STA (11:35)
[2017-07-09] MEDS ORDERED: LORAZEPAM 1 MG TAB SL STA (12:24)
[2017-07-09] MEDS ORDERED: METHYLPREDNISOLONE 125 MG VIAL IV STA (12:24)
[2017-07-09] MEDS ORDERED: ALBUT/IPRATROP 3MG/0.5MG NEB 3 ML VIAL INH ONE (12:30)
--- NOTE | 2017-07-09 12:31 | DIAGNOSTIC IMAGING REPORT ---
CHEST ONE VIEW PORTABLE CLINICAL HISTORY: SOB dyspnea COMPARISON STUDY: 05/22/2017 FINDINGS: Slight fullness pulmonary vasculature. No focal infiltrate. Diaphragms smooth. No significant cardiac enlargement. IMPRESSION: Slight prominence of pulmonary vasculature. Otherwise negative study. The above report was generated using voice recognition software. It may contain grammatical, syntax or spelling errors. Electronically signed by: Michael Schneider M.D. 07/09/2017 12:30 PM Dictated Date/Time: 07/09/2017 12:25 PM
[2017-07-09 12:38] VITALS: PULSE 77; O2SAT 100
[2017-07-09 13:01] LABS: BASO % 0.3 %; BASO ABS # 0.03 K/uL (0-0.2); COMPLETE YES; HEMATOCRIT 36.8 % (37-47); IG% 0.4 %; LYMPH % 24.7 %; LYMPH ABS # 2.77 K/uL (1.2-3.4); MEAN CELL VOLUME 83.4 fL (80-100); MEAN CORPUSCULAR HEMOGLOBIN 26.3 pg (25-34); MEAN CORPUSCULAR HGB CONC 31.5 g/dl (32-36); MEAN PLATELET VOLUME 9.7 fL (7.4-10.4); MONO % 5.8 %; NEUT % 64.8 %; PLATELET COUNT 386 K/uL (130-400); RED BLOOD COUNT 4.41 M/uL (4.2-5.4); WHITE BLOOD COUNT 11.23 K/uL (4.8-10.8)
[2017-07-09 13:08] LABS: PROTHROMBIN TIME (PATIENT) 10.4 SECONDS (9.0-12.0)
[2017-07-09 13:19] LABS: BUN/CREATININE RATIO 13.5 (10-20); CALCIUM 8.9 mg/dl (8.5-10.1); CREATININE 0.74 mg/dl (0.60-1.20); POTASSIUM 3.9 mmol/L (3.5-5.1)
[2017-07-09 14:31] LABS: INR 0.9 (0.9-1.1)
[2017-07-09] MEDS ORDERED: PRED20TA PO (15:11)
[2017-07-09 15:19] VITALS: BP 128/73; PULSE 90; O2SAT 96
--- NOTE | 2017-07-09 18:44 | EMERGENCY ROOM VISIT NOTE ---
History Report prepared by Iona: Manny Ferraro Under the Supervision of: Dr. Charli Sinha M.D. First contact with patient: 12:16 Chief Complaint: SHORTNESS OF BREATH Stated Complaint: SOB, ASTHMA Nursing Triage Summary: pt to the ED with c/o SOB and FUNEZ getting worse since last night with chest tightness no c/o pain pt has COPD History of Present Illness The patient is a 46 year old female who presents to the Emergency Room with complaints of persistent shortness of breath starting last night. The patient states that she is having an asthma flare up, and she states that she has been taking her nebulizers which help her temporarily, though they do not last long. She states that she is not currently on steroids, and she notes that when she usually has similar asthma flare ups she usually gets an injection of Solu- Medrol which usually helps. She reports that she is wheezing, though she denies any fevers or coughing. She notes that she is having some chest tightness, though she is not having any chest pain. She states that she always has chest tightness when she has asthma exacerbations. She states she feels nothing like when she had her pulmonary embolism. The patient states that she has been taking her Coumadin daily. Source of History: patient Onset: last night Position: other (global) Quality: other (shortness of breath) Timing: other (persistent) Modifying Factors (Relieving): other (DuoNeb) Associated Symptoms: No fevers, No cough, No chest pain Note: Associated symptoms: Chest tightness and wheezing. Review of Systems See HPI for pertinent positives & negatives. A total of 10 systems reviewed and were otherwise negative. Past Medical & Surgical Medical Problems: (1) Anxiety (2) Asthma (3) Chronic obstructive lung disease (4) COPD exacerbation (5) Hernia repair (6) Irritable colon Surgical Problems: (1) H/O hernia repair (2) History of cholecystectomy Family History Diabetes mellitus FH ischemic heart disease Social History Smoking Status: Current Every Day Smoker Alcohol Use: occasionally Marital Status: Housing Status: lives with family Occupation Status: employed Current/Historical Medications Scheduled Alprazolam (Xanax), 2 MG PO HS Baclofen (Lioresal), 10 MG PO QPM Budesonide/Formoterol Fumarate (Symbicort 160/4.5 Inhaler ), 2 PUFFS INH BID Cyanocobalamin (Cyanocobalamin), 1,000 MCG SQ WK Ergocalciferol (Vitamin D 73495 Unit), 1 CAP PO WK Fexofenadine Hcl (Susanne), 180 MG PO QAM Fluticasone Propionate (Nasal) (Flonase Allergy Relief), 1 SPRAYS MUKESH BID Ipratropium-Albuterol (Combivent Respimat), 2 PUFFS INH Q2H Montelukast Sodium (Singulair), 10 MG PO HS Naproxen (Aleve), 440 MG PO BID Norethindrone (Contraceptive) (Sharobel), 1 TAB PO QPM Omeprazole (Prilosec), 20 MG PO QAM Prednisone (Prednisone), 3 TAB PO DAILY Ranitidine Hcl (Zantac), 150 MG PO HS Tiotropium [place] (Spiriva Respimat), 1 PUFFS INH BID Warfarin Sod (Coumadin), 1 TAB PO 3XWK Warfarin Sod (Coumadin), 3 TAB PO 4XWK Scheduled PRN Furosemide (Lasix), 20 MG PO DAILY PRN for SWELLING Hydrocodone/Acetaminophen 10MG/325MG ([place] 10MG/325MG), 1 TAB PO Q6H PRN for Pain Ipratropium-Albuterol (Duoneb), 1 TREATMENT INH Q4 PRN for COPD Zolpidem Tartrate (Ambien Cr), 6.25 MG PO HS PRN for Sleep Allergies Coded Allergies: Adhesives (Verified Allergy, Intermediate, TAPE- SEVERE ITCHING, 07/09/17) Chlorhexidine (Verified Allergy, Intermediate, ITCHING, 07/09/17) Clarithromycin (Verified Adverse Reaction, Intermediate, NAUSEA, 07/09/17) Clindamycin (Verified Adverse Reaction, Mild, NAUSEA, 07/09/17) Tramadol (Verified Adverse Reaction, Mild, dizziness,SYNCOPE, 07/09/17) Physical Exam Vital Signs Date Time Temp Pulse Resp B/P (MAP) Pulse Ox O2 Delivery O2 Flow Rate FiO2 07/09/17 15:19 90 20 128/73 96 07/09/17 13:07 72 18 113/74 100 Mask 8.0 07/09/17 12:38 77 20 100 07/09/17 11:34 99 Room Air 07/09/17 11:14 78 07/09/17 11:12 100 Room Air 07/09/17 10:43 36.4 80 24 141/69 97 Room Air Physical Exam Constitutional: Vital signs reviewed. Eyes: Pupils are equal round reactive to light. Conjunctiva are noninjected. ENT: Pharynx is clear without erythema or exudate. Mucous membranes are moist. Neck supple without meningeal signs. Respiratory: Diffuse wheezing with poor air entry bilaterally. Breath sounds are equal bilaterally. Cardiovascular: Regular rate and rhythm. No rubs or gallops. GI: Soft, nondistended and nontender. Bowel sounds are present. Musculoskeletal: No peripheral edema. No lower extremity tenderness. Integumentary: No cyanosis. Neurological: The patient is awake and alert. No focal deficits. Psychiatric: Normal affect. Medical Decision & Procedures ER Provider Diagnostic Interpretation: Radiology results as stated below per my review and the radiologist's interpretation: CHEST ONE VIEW PORTABLE CLINICAL HISTORY: SOB dyspnea COMPARISON STUDY: 05/22/2017 FINDINGS: Slight fullness pulmonary vasculature. No focal infiltrate. Diaphragms smooth. No significant cardiac enlargement. IMPRESSION: Slight prominence of pulmonary vasculature. Otherwise negative study. The above report was generated using voice recognition software. It may contain grammatical, syntax or spelling errors. Electronically signed by: Michael Schneider M.D. 07/09/2017 12:30 PM Dictated Date/Time: 07/09/2017 12:25 PM Laboratory Results 07/09/17 12:39 Red Blood Count 4.41, Mean Corpuscular Volume 83.4, Mean Corpuscular Hemoglobin 26.3, Mean Corpuscular Hemoglobin Concent 31.5, Mean Platelet Volume 9.7, Neutrophils (%) (Auto) 64.8, Lymphocytes (%) (Auto) 24.7, Monocytes (%) (Auto) 5.8, Eosinophils (%) (Auto) 4.0, Basophils (%) (Auto) 0.3, Neutrophils # (Auto) 7.29, Lymphocytes # (Auto) 2.77, Monocytes # (Auto) 0.65, Eosinophils # (Auto) 0.45, Basophils # (Auto) 0.03 07/09/17 12:39 Test 07/09/17 12:39 07/09/17 14:05 White Blood Count 11.23 K/uL (4.8-10.8) Red Blood Count 4.41 M/uL (4.2-5.4) Hemoglobin 11.6 g/dL (12.0-16.0) Hematocrit 36.8 % (37-47) Mean Corpuscular Volume 83.4 fL (80-100) Mean Corpuscular Hemoglobin 26.3 pg (25-34) Mean Corpuscular Hemoglobin Concent 31.5 g/dl (32-36) Platelet Count 386 K/uL (130-400) Mean Platelet Volume 9.7 fL (7.4-10.4) Neutrophils (%) (Auto) 64.8 % Lymphocytes (%) (Auto) 24.7 % Monocytes (%) (Auto) 5.8 % Eosinophils (%) (Auto) 4.0 % Basophils (%) (Auto) 0.3 % Neutrophils # (Auto) 7.29 K/uL (1.4-6.5) Lymphocytes # (Auto) 2.77 K/uL (1.2-3.4) Monocytes # (Auto) 0.65 K/uL (0.11-0.59) Eosinophils # (Auto) 0.45 K/uL (0-0.5) Basophils # (Auto) 0.03 K/uL (0-0.2) RDW Standard Deviation 44.5 fL (36.4-46.3) RDW Coefficient of Variation 14.7 % (11.5-14.5) Immature Granulocyte % (Auto) 0.4 % Immature Granulocyte # (Auto) 0.04 K/uL (0.00-0.02) Anion Gap 7.0 mmol/L (3-11) Est Creatinine Clear Calc Drug Dose 151.9 ml/min Estimated GFR () 114.2 Estimated GFR (Non- 98.5 BUN/Creatinine Ratio 13.5 (10-20) Calcium Level 8.9 mg/dl (8.5-10.1) Prothrombin Time 10.0 SECONDS (9.0-12.0) Prothromb Time International Ratio 0.9 (0.9-1.1) Laboratory results as reviewed by me. Medications Administered Medications (Trade) Dose Ordered Sig/Johnathan Route Start Time Stop Time Status Last Admin Dose Admin Albuterol/ Ipratropium (Duoneb) 3 ml NOW STAT INH 07/09/17 11:35 07/09/17 11:37 DC 07/09/17 11:43 3 ML Methylprednisolone Sodium Succinate (Solu-Medrol IV) 125 mg NOW STAT IV 07/09/17 12:24 07/09/17 12:26 DC 07/09/17 12:40 125 MG Albuterol/ Ipratropium (Duoneb) 12 ml ONE ONCE INH 07/09/17 12:30 07/09/17 12:37 DC 07/09/17 12:38 12 ML Lorazepam (Ativan Tab) 1 mg NOW STAT SL 07/09/17 12:24 07/09/17 12:26 DC 07/09/17 12:32 1 MG ECG Indication: SOB/dyspnea Rate (beats per minute): 72 Rhythm: normal sinus Findings: no acute ischemic change, no ectopy, other (Low Voltage QRS) ED Course 1135: DuoNeb 3ml INH 1216: The patient was evaluated in room C3. A complete history and physical exam was performed. 1224: Ativan 1mg SL, Solu-Medrol 125mg IV 1230: DuoNeb 12ml INH 1328: I reassessed the patient, and she states that she is feeling better already. I discussed her INR being 1 with her, and she is not sure why it is so low since she is taking Coumadin regularly. I discussed the work up for a potential PE, and she refused. She does not want a PE or a D-Dimer or a CT scan. She says that she feels like this is her asthma acting up and is nothing like when she had a PE. She understands the risks of a missed PE and agrees for a repeat blood draw. 1502: The patient spoke to the ED pharmacist who discovered that the patient has been eating kale and leafy greens which dropped her INR. She recommended that she bridge with Lovenox and continue with her current Coumadin dosing and have her INR rechecked in three days. She declined Lovenox here, and she will use her own when she gets home. The patient will be discharged home. Medical Decision This is a 46-year-old female who presents with difficulty breathing and chest tightness. Differential diagnosis includes asthma exacerbation, pneumonia, pericarditis, pleural effusion, pneumothorax, pulmonary embolism. I did perform a limited focused review of portions of the patient's old chart on the electronic medical record. The patient was here in May for difficulty breathing. She had a CT done of her chest which showed no evidence of embolism. Her last INR was 2.1 on June 21. I did evaluate the patient as noted above. Patient is presenting with difficulty breathing since yesterday. She states that she gets relief with her nebulizers but she still feels tightness in her chest with wheezing. She states she does not feel anything like when she had her pulmonary embolism and has been taking her Coumadin regularly. IV access was established. The patient was placed on a continuous bus monitor. I did treat patient with Solu-Medrol IV. I also gave the patient an hour-long continuous DuoNeb. She did request Ativan prior to the DuoNeb as it makes her very anxious. She was given Ativan 1 mg sublingually. I did personally review the patient's 12-lead EKG and chest x-ray as described above. Her twelve-lead EKG is unremarkable. Her chest x-ray does not show any evidence of pneumonia or pneumothorax. I did order and review the patient's blood work as noted in the electronic medical record. Lab work demonstrated an INR of 1.0. I did discuss this with the patient. She states that she has definitely been taking her Coumadin and does not understand why her INR so low. She states that she does not want to be worked up for pulmonary embolism including d-dimer testing or CT scanning of the chest. She states that she has had that done in the past and it turned out negative. She is concerned about the radiation exposure. She understands that I cannot rule out pulmonary embolism without further testing and understands the risks and consequences of this including and permanent disability. I did recommend we repeat her INR in case this was a lab error. Blood was redrawn from the patient. Her INR was 0.9. I did have the ED pharmacist speak to her. Apparently the patient had been eating leafy greens including kale which likely caused her INR to drop. She was advised she was advised to avoid these vegetables. She will take her Lovenox. She still has Lovenox at home from a prior visit and states she will take her own. I did offer to give her a dose here but she declined. She will have her doctor recheck her INR on Wednesday. She will continue her regular Coumadin dosing. On reexamination the patient's wheezing is almost completely gone. Her air entry is good bilaterally. She did feel much better. She was given a prescription for prednisone. She was advised follow with her doctor discharged in good condition. Medication Reconcilliation Current Medication List: was personally reviewed by me Blood Pressure Screening Patient's blood pressure: Elevated blood pressure Blood pressure disposition: Referred to PCP Impression Primary Impression: Acute asthma exacerbation Additional Impression: Subtherapeutic international normalized ratio (INR) Scribe Attestation The scribe's documentation has been prepared under my direct and personally reviewed by me in its entirety. I confirm that the note above accurately reflects all work, treatment, procedures, and medical decision making performed by me. Departure Information Dispostion Home / Self-Care Prescriptions Prednisone (Prednisone) 20 Mg Tab 3 TAB PO DAILY, #12 TAB FOR 4 DAYS Prov: Charli Sinha M.D. 07/09/17 Referrals No Doctor, Assigned (PCP) Forms HOME CARE DOCUMENTATION FORM, IMPORTANT VISIT INFORMATION Patient Instructions Asthma - [facility], Enoxaparin injection, [facility] Additional Instructions You have been examined and treated today on an emergency basis only. This is not a substitute for, or an effort to provide, complete comprehensive medical care. It is impossible to recognize and treat all injuries or illnesses in a single emergency department visit. It is therefore important that you follow up closely with your physician. Call as soon as possible for an appointment. Return for worsening symptoms or if you develop fever, vomiting, chest pain, leg swelling or pain or any other concerning symptoms. Have your INR rechecked on Wednesday. Use Lovenox as discussed. Problem Qualifiers Primary Impression: Acute asthma exacerbation Asthma severity: moderate Asthma persistence: unspecified Qualified Codes: J45.901 - Unspecified asthma with (acute) exacerbation
== END 2017-07-09 15:20 | disposition home or self-care (01) ==
LOC: C.EDB 10:42 → C.EDC 15:20
DX: J44.1 Chronic obstructive pulmonary disease with (acute) exacerbation (principal); R79.1 Abnormal coagulation profile; Z86.711 Personal history of pulmonary embolism; Z79.01 Long term (current) use of anticoagulants; F41.9 Anxiety disorder, unspecified; K58.9 Irritable bowel syndrome, unspecified; Z90.49 Acquired absence of other specified parts of digestive tract; Z83.3 Family history of diabetes mellitus; Z82.49 Family history of ischemic heart disease and other diseases of the circulatory system; F17.210 Nicotine dependence, cigarettes, uncomplicated; Z79.899 Other long term (current) drug therapy

== ENCOUNTER 2017-07-26 12:04 | Observation (INO) | payer OTHER ==
[2017-07-07 11:19] VITALS: BMI 54.0
--- NOTE | 2017-07-07 11:53 | PAT Medication Instructions ---
Service Date Jul 07, 2017. Current Home Medication List Alprazolam (Xanax), 2 MG PO HS Baclofen (Lioresal), 10 MG PO QPM Budesonide/Formoterol Fumarate (Symbicort 160/4.5 Inhaler ), 2 PUFFS INH BID Cyanocobalamin (Cyanocobalamin), 1,000 MCG SQ WK Ergocalciferol (Vitamin D 15294 Unit), 1 CAP PO WK Fexofenadine Hcl (Susanne), 180 MG PO QAM Fluticasone Propionate (Nasal) (Flonase Allergy Relief), 1 SPRAYS MUKESH BID Furosemide (Lasix), 20 MG PO DAILY PRN for SWELLING Hydrocodone/Acetaminophen 10MG/325MG ([place] 10MG/325MG), 1 TAB PO Q6H PRN for Pain Ipratropium-Albuterol (Duoneb), 1 TREATMENT INH Q4 PRN for COPD Ipratropium-Albuterol (Combivent Respimat), 2 PUFFS INH Q2H Montelukast Sodium (Singulair), 10 MG PO HS Naproxen (Aleve), 440 MG PO BID Norethindrone (Contraceptive) (Sharobel), 1 TAB PO QPM Omeprazole (Prilosec), 20 MG PO QAM Ranitidine Hcl (Zantac), 150 MG PO HS Tiotropium [place] (Spiriva Respimat), 1 PUFFS INH BID Warfarin Sod (Coumadin), 1 TAB PO 3XWK Warfarin Sod (Coumadin), 3 TAB PO 4XWK Zolpidem Tartrate (Ambien Cr), 6.25 MG PO HS PRN for Sleep Medication Instructions For Your Scheduled Surgery - Follow your prescriber's instructions for: Warfarin Sod (Coumadin), 1 TAB PO 3XWK Warfarin Sod (Coumadin), 3 TAB PO 4XWK - Check with your surgeon for instructions for: Naproxen (Aleve), 440 MG PO BID - Hold the following medications the morning of surgery: Furosemide (Lasix), 20 MG PO DAILY PRN for SWELLING Fexofenadine Hcl (Susanne), 180 MG PO QAM Cyanocobalamin (Cyanocobalamin), 1,000 MCG SQ WK Ergocalciferol (Vitamin D 83002 Unit), 1 CAP PO WK - Take the following medications the morning of surgery with a sip of water: Omeprazole (Prilosec), 20 MG PO QAM Tiotropium [place] (Spiriva Respimat), 1 PUFFS INH BID Ipratropium-Albuterol (Duoneb), 1 TREATMENT INH Q4 PRN for COPD (if needed) Ipratropium-Albuterol (Combivent Respimat), 2 PUFFS INH Q2H Hydrocodone/Acetaminophen 10MG/325MG ([place] 10MG/325MG), 1 TAB PO Q6H PRN for Pain (if needed) Budesonide/Formoterol Fumarate (Symbicort 160/4.5 Inhaler ), 2 PUFFS INH BID Fluticasone Propionate (Nasal) (Flonase Allergy Relief), 1 SPRAYS MUKESH BID - Take the following medications as scheduled the night before surgery: Ranitidine Hcl (Zantac), 150 MG PO HS Tiotropium [place] (Spiriva Respimat), 1 PUFFS INH BID Zolpidem Tartrate (Ambien Cr), 6.25 MG PO HS PRN for Sleep Norethindrone (Contraceptive) (Sharobel), 1 TAB PO QPM Ipratropium-Albuterol (Duoneb), 1 TREATMENT INH Q4 PRN for COPD (if needed) Ipratropium-Albuterol (Combivent Respimat), 2 PUFFS INH Q2H Montelukast Sodium (Singulair), 10 MG PO HS Hydrocodone/Acetaminophen 10MG/325MG ([place] 10MG/325MG), 1 TAB PO Q6H PRN for Pain (if needed) Alprazolam (Xanax), 2 MG PO HS Baclofen (Lioresal), 10 MG PO QPM Budesonide/Formoterol Fumarate (Symbicort 160/4.5 Inhaler ), 2 PUFFS INH BID Fluticasone Propionate (Nasal) (Flonase Allergy Relief), 1 SPRAYS MUKESH BID If you have any questions please call us at [phone] or [phone] or [phone]
[2017-07-07 12:54] LABS: BASO % 0.3 %; BASO ABS # 0.03 K/uL (0-0.2); COMPLETE YES; EOS % 3.9 %; HEMATOCRIT 37.3 % (37-47); IG% 0.4 %; LYMPH % 23.4 %; LYMPH ABS # 2.61 K/uL (1.2-3.4); MEAN CELL VOLUME 84.6 fL (80-100); MEAN CORPUSCULAR HGB CONC 31.9 g/dl (32-36); MEAN PLATELET VOLUME 9.7 fL (7.4-10.4); MONO % 5.6 %; NEUT % 66.4 %; PLATELET COUNT 391 K/uL (130-400); RED BLOOD COUNT 4.41 M/uL (4.2-5.4); WHITE BLOOD COUNT 11.16 K/uL (4.8-10.8)
[2017-07-07 15:31] LABS: BUN/CREATININE RATIO 22.7 (10-20); CALCIUM 8.9 mg/dl (8.5-10.1); CREATININE 0.61 mg/dl (0.60-1.20); POTASSIUM 4.1 mmol/L (3.5-5.1)
[2017-07-26] VITALS (8 sets, daily range): BP systolic 113–152; BP diastolic 64–80; PULSE 76–99; TEMP 36.5–37.1; O2SAT 96–100; Ht 170.2 cm; Wt 157.4 kg
[~2017-07-26] VITALS: Ht 170.2 cm; Wt 157.4 kg
[~2017-07-26 12:04] MED LIST changes: +CEFAZOLIN 3000MG IV PUSH 15 ML IV SCH; +LACTATED RINGER'S 1000ML 1,000 ML IV SCH; +PRED20TA PO
[2017-07-26] MEDS ORDERED: ENOXAPARIN SQ (12:44)
[2017-07-26] MEDS ORDERED: WARF10TA PO ×2 (12:44)
[2017-07-26 13:16] LABS: INR 0.9 (0.9-1.1); PARTIAL THROMBOPLASTIN RATIO 1.1; PROTHROMBIN TIME (PATIENT) 9.9 SECONDS (9.0-12.0)
[2017-07-26] MEDS ORDERED: FENTANYL CITRATE INJ 50 MCG/1 ML 2 ML VIAL ONE ×3 (13:33→17:00)
[2017-07-26] MEDS ORDERED: MIDAZOLAM HCL 1 MG/ML 2ML VIAL ONE (13:33)
[2017-07-26] MEDS ORDERED: BUPIVACAINE 0.5 % 5 MG/1 ML MPF 30ML VIAL ONE (14:38)
[2017-07-26] MEDS ORDERED: METHYLENE BLUE 0.5% 10 ML VIAL ONE (14:38)
--- NOTE | 2017-07-26 14:56 | History & Physical Bridge Note ---
H&P Re-Evaluation Bridge Note: I have examined the patient, reviewed the History & Physical and in the interval since the performance of the History & Physical I have noted the following changes of clinical significance: Had ED visit on 07/09 for asthma exacerbation. Was given nebs and steriods and steroid taper. Doing well now. Not on chronic steroids. No other changes.
[2017-07-26] MEDS ORDERED: SUCCINYLCHOLINE CHLORIDE 20 MG/ML 10 ML VIAL IV ONE (15:54)
[2017-07-26] MEDS ORDERED: KETOROLAC TROMETHAMINE 30 MG/ML VIAL ONE ×2 (15:54→19:56)
[2017-07-26] MEDS ORDERED: NEOSTIGMINE METHYLSULFATE 5 MG/5 ML SYR ONE (15:54)
[2017-07-26] MEDS ORDERED: CISATRACURIUM BESYLATE IV SOLN 2 MG/ML 10 ML VIAL ONE (15:54)
[2017-07-26] MEDS ORDERED: GLYCOPYRROLATE INJ 0.2 MG/ML VIAL ONE (15:54)
[2017-07-26] MEDS ORDERED: PROPOFOL IV EMULSION 10 MG/ML 20 ML VIAL IV ONE (15:54)
[2017-07-26] MEDS ORDERED: DEXAMETHASONE SOD INJ 4 MG/ML VIAL ONE (15:54)
[2017-07-26] MEDS ORDERED: LARYING-O-JET KIT (LTA) ONE ×2 (15:54)
[2017-07-26] MEDS ORDERED: ONDANSETRON INJ 2 MG/ML 2 ML VIAL ONE ×2 (15:54→18:15)
[2017-07-26] MEDS ORDERED: LIDOCAINE HCL 2% 2 ML VIAL (20MG/ML) ONE (15:54)
[2017-07-26] MEDS ORDERED: HydrALAZINE HCL 20 MG/ML VIAL ONE (16:09)
[2017-07-26] MEDS ORDERED: TISSEEL FIBRIN SEALANT 4ML TOP ONE (17:10)
[2017-07-26] MEDS ORDERED: FLUMAZENIL 0.1 MG/1 ML 10 ML VIAL IV PRN (17:45)
[2017-07-26] MEDS ORDERED: MEPERIDINE HCL 50 MG/ML CARP IV PRN ×2 (17:45)
[2017-07-26] MEDS ORDERED: ALBUTEROL 0.083% NEBU SOLN 3 ML VIAL INH PRN (17:45)
[2017-07-26] MEDS ORDERED: OXYCODONE/ACETAMINOPHEN 5-325 TAB PO PRN (17:45)
[2017-07-26] MEDS ORDERED: PROMETHAZINE HCL INJ 12.5 MG in SODIUM CHLORIDE 0.9% 50ML 50 ML IV PRN (17:45)
[2017-07-26] MEDS ORDERED: ACETAMINOPHEN 325 MG TAB PO PRN (17:45)
[2017-07-26] MEDS ORDERED: NALOXONE HCL 0.4 MG/1 ML VIAL/CARP IV PRN (17:45)
[2017-07-26] MEDS ORDERED: KETOROLAC TROMETHAMINE 30 MG/ML VIAL IV. PRN (17:45)
[2017-07-26] MEDS ORDERED: IPRATROPIUM BROMIDE/ALBUTEROL respimat INH INH PRN (17:45)
[2017-07-26] MEDS ORDERED: ATROPINE SULFATE 0.1 MG/ML 5ML SYR IV PRN (17:45)
[2017-07-26] MEDS ORDERED: HYDROmorphone INJ 0.5 MG/0.5 ML SYR IV PRN (17:45)
[2017-07-26] MEDS ORDERED: ONDANSETRON INJ 2 MG/ML 2 ML VIAL IV PRN (17:45)
[2017-07-26] MEDS ORDERED: IBUPROFEN 600 MG TAB PO PRN (17:45)
[2017-07-26] MEDS ORDERED: LABETALOL HCL IV 5 MG/ML 20ML IV PRN (17:45)
[2017-07-26] MEDS ORDERED: EpHEDrine SULFATE INJ 50 MG/ML AMP IV PRN (17:45)
[2017-07-26] MEDS ORDERED: HYDROmorphone INJ 1 MG/ML SYR ONE (17:47)
--- NOTE | 2017-07-26 17:52 | [facility] Post Operative Brief Note ---
Immediate Operative Summary Operative Date Jul 26, 2017. Pre-Operative Diagnosis Mennorrhagia Post-Operative Diagnosis Same as preoperative diagnosis Procedure(s) Performed Robotic Assisted Total Laparoscopic Hysterectomy, Bilateral Salpingectomies; Cystoscopy Surgeon Dr. Trinh Hand Candle Dipper Surgeon(s) Dr. Reyes Estimated Blood Loss 75ml Findings small uterus, nl tubes and ovaries, nl liver edge, adhesion of the omentum to the upper left anterior abdominal wall Fluids (cc crystalloids) 1800cc Specimens a. uterus, cervix, bilateral tubes Drains carrasco Anesthesia gett Complication(s) None Disposition Recovery Room / PACU
--- NOTE | 2017-07-26 18:59 | Anesthesiology Progress Note ---
Anesthesia Post Op Note Date & Time Jul 26, 2017 at 18:59 Vital Signs Pain Intensity: 5 Vital Signs Past 12 Hours Date Time Temp Pulse Resp B/P (MAP) Pulse Ox O2 Delivery O2 Flow Rate FiO2 07/26/17 18:55 36.4 92 15 150/68 100 Nasal Cannula 2 07/26/17 18:40 90 14 139/65 100 Nasal Cannula 2 07/26/17 18:30 86 13 141/62 100 Nasal Cannula 2 07/26/17 18:20 82 20 127/68 98 Nasal Cannula 2 07/26/17 18:15 99 96 Nasal Cannula 2.0 07/26/17 18:10 91 21 122/65 99 Oxymask 10 07/26/17 18:00 89 21 140/82 99 Oxymask 10 07/26/17 17:50 96 19 139/77 100 Oxymask 10 07/26/17 17:42 37.1 102 18 124/82 99 Oxymask 10 07/26/17 12:48 36.7 90 20 152/73 (99) 98 Room Air Notes Mental Status: alert / awake / arousable, participated in evaluation Pt Amnestic to Procedure: Yes Nausea / Vomiting: adequately controlled Pain: adequately controlled Airway Patency, RR, SpO2: stable & adequate BP & HR: stable & adequate Hydration State: stable & adequate Anesthetic Complications: no major complications apparent
[2017-07-26] MEDS ORDERED: IV FLUIDS COMPLETED PRN (19:15)
--- NOTE | 2017-07-26 20:18 | OPERATIVE REPORT ---
DATE OF OPERATION: 07/26/2017 PREOPERATIVE DIAGNOSIS: Menorrhagia with irregular cycles. POSTOPERATIVE DIAGNOSIS: Same. PROCEDURES: 1. Total laparoscopic hysterectomy and bilateral salpingo-oophorectomy via da Lolly. 2. Cystoscopy. SURGEON: Rubina Trinh MD. BUCKLE SEWER MACHINE: Remigio Reyes MD. ANESTHESIA: General per endotracheal tube. ESTIMATED BLOOD LOSS: 75 mL. FLUIDS: 1800 mL. URINE OUTPUT: 300 mL of clear yellow urine draining from the bladder prior to the cystoscopy. INDICATIONS: Jessica is a 46-year-old 0 with a long history of menorrhagia. Her history is complicated by being on Coumadin for history of PE, morbid obesity, and severe persistent asthma/COPD. She declined hormonal intervention, Mirena IUD or endometrial ablation. FINDINGS: Uterus small, mobile and midline. Ovaries normal bilaterally. Tubes normal bilaterally, normal liver edge, evidence of graft material in the anterior abdominal wall, adhesions of the omentum to the anterior abdominal wall in the left upper quadrant of the abdomen. COMPLICATIONS: None. DRAINS: Schuler. DISPOSITION: To recovery room in stable condition. DESCRIPTION OF PROCEDURE: The patient was taken to the operating room where she was identified verbally and by bracelet. She was placed in the dorsal supine position where a general anesthesia was induced without difficulty. She was placed in dorsal lithotomy position in [facility] stirrups. Her arms were carefully tucked and draped at her sides. Her chest was protected and restrained and the cold header operator was placed. The patient was prepped and draped in normal sterile fashion. Timeout was held identifying correct patient, procedure, positioning and preoperative antibiotics. Attention was turned to the vagina where the anterior lip of the cervix was grasped with a single tooth tenaculum. Uterus sounded to 7 cm, dilated to #23 Thi dilator. The VCare uterine manipulator was placed into the uterus and the green cup was sewn to the cervix with one stitch at 3 o'clock. A Schuler catheter had been placed. Gloves were then changed. Attention was then turned to the abdomen where a supraumbilical incision was placed through a previous incision. We tried to place a Veress needle without success, so we cut down to the fascia, opened the fascia with scissors, marked the fascial edges with 0 Vicryl. Then found the peritoneum entered bluntly and the trocar was placed intraabdominally by direct visualization. The abdomen was insufflated with carbon dioxide gas. The patient was placed into Trendelenburg position. Two 8 mm da Lolly trocars were placed in the right and left upper quadrant and an accessory trocar was placed in the left upper quadrant, all under direct visualization. The speeder machine operator then proceeded to the da Lolly surgical first assistant device. First on the left and then on the right, the tubes were taken down. The tubo-ovarian ligaments were cauterized and cut and the bladder flap was created anteriorly. The uterine arteries were skeletonized and cauterized and cut. This happened in a very similar fashion on the left. Once this was performed and the bladder was down from our incision, a colpotomy incision was made in 365 degrees using hot catrina. The specimen was then removed from the vagina. The vaginal cuff was sutured with 2-0 V-Loc suture. We did have some significant difficulties with visualization during this part so Dr. Reyes placed a third da Lolly arm in the right upper quadrant and this arm was used to retract the very redundant bladder fat. The cuff was successfully reapproximated and hemostasis was noted to be good. Cystoscopy was performed using a 70 degree hysteroscope. Blue urine was found to be effluxing from both ureteral orifices after being given methylene blue dye. The bladder dome was intact. No stitches or injuries noted. Her old Schuler catheter had been removed and a new clean Schuler catheter replaced. Once the bladder was drained Tisseel was placed over the vaginal cuff. The instruments were then removed from the vagina and the gas was released. An 0 Vicryl was used to close the fascial incision of the suprapubic incision and then all incisions were closed with a 4-0 Vicryl in a subcuticular fashion. All incisions were infiltrated with 0.5% Marcaine and treated with Dermabond. All sponge, lap and needle counts were correct x2. The patient tolerated the procedure well and was taken to recovery room in stable condition. I attest to the content of the Intraoperative Record and any orders documented therein. Any exception s are noted below.
[2017-07-26] MEDS ORDERED: LACTATED RINGER'S 1000ML 1,000 ML IV SCH (20:45)
[2017-07-26] MEDS ORDERED: MONTELUKAST SOD 10 MG TAB PO SCH (21:00)
[2017-07-26] MEDS: TIOTROPIUM BROMIDE SCH (21:00)
[2017-07-26] MEDS ORDERED: BACLOFEN 10 MG TAB PO SCH (21:00)
[2017-07-26] MEDS: OXYCODONE/ACETAMINOPHEN 5-325 TAB PO PRN (21:36)
[2017-07-26] MEDS: FLUTICASONE PROPIONATE NA SPR 16 GM BTL NAE SCH (22:36)
[2017-07-26] MEDS: BUDESONIDE/FORMOTEROL FUMARATE 160/4.5 60 PUFFS/INHALER INH SCH (22:36)
[2017-07-27] MEDS: TIOTROPIUM BROMIDE SCH (00:14)
[2017-07-27 04:00] VITALS: BP 119/81; PULSE 74; TEMP 37.3; O2SAT 99
[2017-07-27] MEDS ORDERED: OXYC-57 PO (05:40)
--- NOTE | 2017-07-27 05:41 | Discharge Instructions ---
Discharge Instructions Date of Service Jul 27, 2017. Admission Reason for Admission: Dysfunctional Uterine Bleeding Discharge Discharge Diagnosis / Problem: s/p laproscopic hysterectomy, removal of tubes and cystoscopy Discharge Goals Goal(s): Routine recovery after surgery Activity Recommendations Activity Limitations: per Instructions/Follow-up section . Instructions / Follow-Up Instructions / Follow-Up POST OPERATIVE: BOWEL FUNCTION/MEDICATIONS: 1. Constipation pain and discomfort are the most common complaints 5-7 days after surgery. Points 2-6 address the things that can help. 2. Chewing gum can help stimulate the gut and help improve digestion and motility. 3. Milk of Magnesia 1-2 times per day until return of bowel function. 4. Colace is a stool softener that helps. Taking this 2-3 times per day until bowel function returns to normal is highly recommended. 5. Dulcolax is a laxative that may be used if several days have passed without a bowel movement. Alternatively Miralax may be used daily instead. 6. Drink plenty of fluids as this will also reduce constipation. 7. Narcotic pain medications will be prescribed by your physician. They are safe to use and we encourage you to use them. If you are not allergic, ibuprofen will also be prescribed. Many patients will be able to transition off of the narcotic medications to ibuprofen by postoperative day 3. ACTIVITY RECOMMENDATIONS: 1. Get plenty of rest and listen to your body. If you are tired, take a nap. 2. You may shower, but do not take a tub bath until you see your doctor at the 2 week post operative visit. 3. Absolutely NO intercourse and nothing in the vagina until you are examined by your doctor at the 6 week visit. At that visit it will be determined when such activities can be resumed. This can range from 6-12 weeks after your surgery depending on healing time. 4. The main physical activity in the first week should be walking. By the second week you can slowly increase activity. There are no limits on walking up and down stairs. 5. Do not lift more than 5-10 lbs for 4 weeks. Remember the "one-handed rule", i.e. if you can lift something with only one hand it's likely okay. 6. Minimize purchasing assistant like vacuuming and exercising for 4 weeks. "Overdoing it" can lead to incisions not healing, pain and vaginal bleeding , so again, listen to your body. 7. Driving can be resumed when you feel able. Do not drive within 24 hours of taking a narcotic medication. EXPECTATIONS: 1. Vaginal spotting, bleeding and discharge are common after surgery. There may even be an odor to the discharge which is often related to sutures used in the vagina. If you experience heavy vaginal bleeding, call the office number day or night [phone]. 2. Bladder discomfort is common after surgery from the catheter. This usually resolves in 1-2 weeks. 3. By the end of the 3rd or 4th week you should be feeling much better. It may take up to 6 weeks for your energy levels to return to normal. 4. Narcotic medications have side effects such as: dizziness, headache, nausea and/or vomiting. If you suspect your pain medication is causing problems, call our office and we may be able to prescribe an alternate medication. 5. The skin incisions are often covered with a liquid bandage. This will gradually peel off over time. CALL THE OFFICE IF YOU HAVE ANY OF THE FOLLOWIN. Temperature of 101 degrees or higher. 2. Severe abdominal or pelvic pain not relieved by pain medication. 3. Persistent nausea or vomiting. 4. Increased pain with urination or difficulty urinating. 5. Bright red bleeding that soaks more than 1 pad per hour. CONTACT PHONE NUMBERS: Main Office: [phone] Surgical Nurse: [phone] extension [phone] FOLLOW-UP: Post-Operative Appointments: * Individual instructions will have been given about the timing of your first examination, but this is usually at the end of the second week home. * You will need to call the office at soon after discharge to make the appointment for your post-op check-up if it has not already been scheduled. * Additional information regarding activity, sexual intercourse and when to return to work will be given at this appointment. WE WISH YOU A SPEEDY RECOVERY! Current Hospital Diet Patient's current hospital diet: Regular Diet Discharge Diet Recommended Diet: Regular Diet Procedures Procedures Performed: Robotic Assisted Total Laparoscopic Hysterectomy, Bilateral Salpingectomies; Cystoscopy Pending Studies Studies pending at discharge: no Medical Emergencies . Who to Call and When: Medical Emergencies: If at any time you feel your situation is an emergency, please call 911 immediately. . Non-Emergent Contact Non-Emergency issues call your: Video Production Coordinator . . "Provider Documentation" section prepared by Rubina Trinh. . VTE Core Measure Inpt VTE Proph given/why not?: Enoxaparin (Lovenox)SQ, SCD's [place] Drug Monitoring Program Search Results: patient reviewed within database, no issues identified
[2017-07-27] MEDS: OXYCODONE/ACETAMINOPHEN 5-325 TAB PO PRN (06:18)
--- NOTE | 2017-07-27 07:46 | Anesthesiology Progress Note ---
Anesthesia Post Op Note Date & Time Jul 27, 2017 at 07:43 Vital Signs Pain Intensity: 6.0 Vital Signs Past 12 Hours Date Time Temp Pulse Resp B/P (MAP) Pulse Ox O2 Delivery O2 Flow Rate FiO2 07/27/17 04:00 37.3 74 18 119/81 (94) 99 Room Air 07/26/17 23:50 37.1 76 20 113/64 (80) 98 Room Air 07/26/17 23:50 98 Room Air 07/26/17 22:00 36.7 81 16 132/74 (93) 99 Room Air 07/26/17 21:00 36.7 78 15 138/76 (96) 99 Nasal Cannula 1.0 07/26/17 20:00 36.7 83 16 134/78 (96) 100 Nasal Cannula Humidified Oxygen Notes Mental Status: alert / awake / arousable, participated in evaluation Pt Amnestic to Procedure: Yes Nausea / Vomiting: adequately controlled Pain: adequately controlled Airway Patency, RR, SpO2: stable & adequate BP & HR: stable & adequate Hydration State: stable & adequate Anesthetic Complications: no major complications apparent pt c/o severe n/v upon waking up, improved with meds in PACU. pt resting comfortably and tolerating food/drink today. Recommended to mention this to providers when having future surgeries.
[2017-07-27 07:55] VITALS: BP 119/74; PULSE 66; TEMP 36.9; O2SAT 97
[2017-07-27] MEDS ORDERED: ENOXAPARIN 150 MG/1ML SYR SQ ONE (08:00)
[2017-07-27] MEDS: BUDESONIDE/FORMOTEROL FUMARATE 160/4.5 60 PUFFS/INHALER INH SCH (08:01)
[2017-07-27] MEDS: FLUTICASONE PROPIONATE NA SPR 16 GM BTL NAE SCH (08:02)
--- NOTE | 2017-07-27 08:07 | OB/GYN Progress Note ---
CASH MANAGEMENT OFFICER Progress Note Date of Service Jul 27, 2017. Subjective conversation w/ patient, physical exam, lab review Ambulation: ambulating normally Voiding: no voiding problems Passing Gas: Yes Diet Tolerance: Clear Liquids Pain: Controlled with oral pain meds. Notes: Doing very well. Notes no breathing issues and using her isb. Will start lovenox this am. Objective Vital Signs Date Time Temp Pulse Resp B/P (MAP) Pulse Ox O2 Delivery O2 Flow Rate FiO2 07/27/17 04:00 37.3 74 18 119/81 (94) 99 Room Air 07/26/17 23:50 37.1 76 20 113/64 (80) 98 Room Air 07/26/17 23:50 98 Room Air 07/26/17 22:00 36.7 81 16 132/74 (93) 99 Room Air 07/26/17 21:00 36.7 78 15 138/76 (96) 99 Nasal Cannula 1.0 07/26/17 20:00 36.7 83 16 134/78 (96) 100 Nasal Cannula Humidified Oxygen 07/26/17 19:30 36.5 86 16 145/80 (101) 100 Nasal Cannula 2.0 Humidified Oxygen 07/26/17 19:00 36.7 91 19 145/72 (96) 98 Nasal Cannula 2.0 Humidified Oxygen 07/26/17 19:00 100 Nasal Cannula 2.0 Humidified Oxygen 07/26/17 19:00 36.8 91 16 145/72 (96) 98 Nasal Cannula 2.0 Humidified Oxygen 07/26/17 18:55 36.4 92 15 150/68 100 Nasal Cannula 2 07/26/17 18:40 90 14 139/65 100 Nasal Cannula 2 07/26/17 18:30 86 13 141/62 100 Nasal Cannula 2 07/26/17 18:20 82 20 127/68 98 Nasal Cannula 2 07/26/17 18:15 99 96 Nasal Cannula 2.0 07/26/17 18:10 91 21 122/65 99 Oxymask 10 07/26/17 18:00 89 21 140/82 99 Oxymask 10 07/26/17 17:50 96 19 139/77 100 Oxymask 10 07/26/17 17:42 37.1 102 18 124/82 99 Oxymask 10 07/26/17 12:48 36.7 90 20 152/73 (99) 98 Room Air Physical Exam General Appearance: WELL-APPEARING, WD/WN, NO APPARENT DISTRESS Abdomen: non tender, soft Incision Description: Clean, Dry & Intact Extremities: non-tender, normal inspection Laboratory Results Last 24 Hours Test 07/26/17 12:30 07/26/17 12:54 07/26/17 13:01 07/27/17 04:44 Bedside Glucose 88 mg/dl Prothrombin Time 9.9 SECONDS Prothromb Time International Ratio 0.9 Activated Partial Thromboplast Time 27.3 SECONDS Partial Thromboplastin Ratio 1.1 Assessment and Plan Post-Op Day Number: 1 Continue Routine Care: Doing well. Plan d/c today. Home on lovenox and will f/u with pcp about regarding transition back to coumadin. Instructions given. Call with any concerns.
[2017-07-27] MEDS ORDERED: FEXOFENADINE HCL 180 MG TAB PO SCH (09:00)
[2017-07-27 09:07] LABS: HEMATOCRIT 35.6 % (37-47)
[2017-07-27 09:15] LABS: PARTIAL THROMBOPLASTIN RATIO 1.1; PROTHROMBIN TIME (PATIENT) 10.3 SECONDS (9.0-12.0)
[2017-07-27 10:19] VITALS: BP 119/74; PULSE 66; TEMP 36.9; O2SAT 97
--- NOTE | 2017-07-30 11:28 | DISCHARGE SUMMARY ---
PREOPERATIVE DIAGNOSIS: Menorrhagia with irregular cycles. DISCHARGE DIAGNOSIS: Same. PROCEDURES: Total laparoscopic hysterectomy with bilateral salpingectomy and cystoscopy. HISTORY OF PRESENT ILLNESS: The patient is a 46-year-old 0 who presents for a hysterectomy. She has a long history of oligomenorrhea and heavy periods. She started control at age 16. As she was sexually active at 34 years old, she went back on OCPs for heavy periods. She had a PE about 3 years ago and is on chronic Coumadin maintenance. She knows she has irregular and prolonged bleeding complete for over a month. She notes she wants to have a hysterectomy as she wants definitive therapy for her bleeding. Biopsy in March showed proliferative endometrium. Ultrasound in June showed a small uterus, normal endometrium, ovaries not visualized. We discussed in detail the use of Mirena and endometrial ablation as both of these procedures would be safer for her in the long run and avoid surgical risk. She declines. 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 Marte. She has been cleared by him. She transitioned to Lovenox prior to surgery and then will transition back to Coumadin after surgery. For the rest of the patient's detailed history, please see her dictated history and physical. ASSESSMENT: A 46-year-old white female 0 who presents with menorrhagia with irregular cycles, negative biopsy, who presents for a definitive surgical management. HOSPITAL COURSE: The patient was admitted and she underwent a total laparoscopic hysterectomy and bilateral salpingectomy with da Lolly assist and cystoscopy. Estimated blood loss 75 mL. FINDINGS: Small uterus, normal tubes and ovaries bilaterally. Normal liver edge. There were some adhesions of the omentum into the upper left anterior abdominal wall. The patient's postoperative course was uncomplicated. She tolerated a regular diet, ambulated without difficulty. Her breathing remained very good. She tolerated oral pain medications. She voided after the removal of her Schuler catheter. Given that her surgery was so late in the day, she was maintained overnight. She enjoyed breakfast the following morning, got a dose of 150 mg of Lovenox subQ and was discharged. She was given oral pain medications. She will follow up with Dr. العراقي and Dr. Marte as needed.
== END 2017-07-27 10:19 | disposition home or self-care (01) ==
LOC: C.ACU 12:04 → C.MS4N 17:42 → ENRESERV 18:42
PROVIDERS: ADMIT Obstetrics & Gynecology; ATTEND Obstetrics & Gynecology
DX: N93.8 Other specified abnormal uterine and vaginal bleeding (principal); Z86.711 Personal history of pulmonary embolism; Z79.01 Long term (current) use of anticoagulants; J44.9 Chronic obstructive pulmonary disease, unspecified; K21.9 Gastro-esophageal reflux disease without esophagitis; E66.01 Morbid (severe) obesity due to excess calories; F41.9 Anxiety disorder, unspecified; Z90.89 Acquired absence of other organs; Z90.49 Acquired absence of other specified parts of digestive tract; Z83.3 Family history of diabetes mellitus; Z82.49 Family history of ischemic heart disease and other diseases of the circulatory system; Z81.8 Family history of other mental and behavioral disorders; Z82.62 Family history of osteoporosis; Z80.1 Family history of malignant neoplasm of trachea, bronchus and lung; Z82.0 Family history of epilepsy and other diseases of the nervous system; Z80.3 Family history of malignant neoplasm of breast; Z80.41 Family history of malignant neoplasm of ovary; Z80.0 Family history of malignant neoplasm of digestive organs; Z83.6 Family history of other diseases of the respiratory system; Z87.891 Personal history of nicotine dependence
CPT/HCPCS: 58571; S2900

== ENCOUNTER 2017-08-07 20:49 | Emergency (ER) | payer OTHER ==
[~2017-08-07] VITALS: Ht 172.7 cm; Wt 128.9 kg
[~2017-08-07 20:49] MED LIST changes: -CEFAZOLIN 3000MG IV PUSH 15 ML IV SCH; -CMD5 PO; +ENOXAPARIN SQ; +IPRA-64 INH; -IPRASOL4 INH; -LACTATED RINGER'S 1000ML 1,000 ML IV SCH; +OXYC-57 PO; -PRED20TA PO; -WARF-237 PO; +WARF10TA PO
[2017-08-07 20:54] VITALS: Ht 172.7 cm; Wt 128.9 kg
[2017-08-07] MEDS ORDERED: KETOROLAC TROMETHAMINE 30 MG/ML VIAL IV STA (21:33)
--- NOTE | 2017-08-07 21:39 | EMERGENCY ROOM VISIT NOTE ---
History First contact with patient: 21:10 Chief Complaint: ED VAG BLEEDING Stated Complaint: POST OP HYSTERECTOMY HERMORAGING JUL 26 History of Present Illness The patient is a 46 year old female who presents to the Emergency Room with complaints of Heavy vaginal bleeding that started a few hours prior to arrival. The patient had a hysterectomy on 07/26. This was performed laparoscopically. Postoperatively, the patient has done well. The patient has a history of pulmonary embolus. She is on Coumadin chronically. The patient had her INR done yesterday. It was reportedly 2.1. She denies any severe abdominal pain. The patient contacted her boning room worker who advised her to come here for evaluation. Review of Systems 10 system review performed and negative unless noted in HPI or below Past Medical/Surgical History Medical Problems: (1) Anxiety (2) Asthma (3) Chronic obstructive lung disease (4) COPD exacerbation (5) Hernia repair (6) Irritable colon (7) Menorrhagia with irregular cycle Surgical Problems: (1) H/O hernia repair (2) History of cholecystectomy Family History Diabetes mellitus FH ischemic heart disease Social History Smoking Status: Never Smoker Alcohol Use: occasionally Marital Status: Housing Status: lives with family Occupation Status: employed Current/Historical Medications Scheduled Alprazolam (Xanax), 2 MG PO HS Baclofen (Lioresal), 10 MG PO QPM Budesonide/Formoterol Fumarate (Symbicort 160/4.5 Inhaler ), 2 PUFFS INH BID Cyanocobalamin (Cyanocobalamin), 1,000 MCG SQ WK Ergocalciferol (Vitamin D 31784 Unit), 50,000 UNITS PO WK Fexofenadine Hcl (Susanne), 180 MG PO QAM Fluticasone Propionate (Nasal) (Flonase Allergy Relief), 1 SPRAYS MUKESH BID Montelukast Sodium (Singulair), 10 MG PO HS Naproxen (Aleve), 440 MG PO BID Omeprazole (Prilosec), 20 MG PO QAM Ranitidine Hcl (Zantac), 150 MG PO HS Tiotropium Dana (Spiriva Respimat), 1 PUFFS INH BID Warfarin Sodium (Coumadin), 10 MG PO UD Zolpidem Tartrate (Ambien Cr), 6.25 MG PO HS Scheduled PRN Furosemide (Lasix), 20 MG PO DAILY PRN for SWELLING Hydrocodone/Acetaminophen 10MG/325MG ([place] 10MG/325MG), 1 TAB PO Q6H PRN for Pain Ipratropium-Albuterol (Duoneb), 1 TREATMENT INH Q4 PRN for COPD Ipratropium-Albuterol (Combivent Respimat), 2 PUFFS INH Q2H PRN for SOB/Wheezing Oxycodone/Acetaminophen 5MG/325MG (Percocet 5MG/325MG), 1 TABLET PO Q4H PRN for Pain Physical Exam Vital Signs Date Time Temp Pulse Resp B/P (MAP) Pulse Ox O2 Delivery O2 Flow Rate FiO2 08/07/17 23:20 81 16 126/84 96 08/07/17 22:36 37.0 74 18 122/79 98 Room Air 08/07/17 20:54 36.8 82 20 138/79 100 Room Air Physical Exam VITALS: Vitals are noted on the nurse's note and reviewed by myself. Vital signs stable. GENERAL: 46-year-old female, in no acute distress, nondiaphoretic, well- developed well-nourished. SKIN: The skin was without rashes, erythema, edema, or bruising. HEAD: Normocephalic atraumatic. HEART: Regular rate and rhythm without murmurs gallops or rubs. LUNGS: Clear to auscultation bilaterally without wheezes, rales or rhonchi. No accessory muscle use. ABDOMEN: Positive bowel sounds x 4.Soft, mild diffuse tenderness noted. No focal tenderness. No guarding or rebound tenderness. Incisions are healing well.. No guarding or rebound tenderness. MUSCULOSKELETAL: No muscle atrophy, erythema, or edema noted. Strength 5/5 throughout. NEURO: Patient was alert and oriented to person place and time. Normal sensation to touch. No focal neurological deficits. Medical Decision & Procedures Laboratory Results 08/07/17 21:26 Red Blood Count 4.24, Mean Corpuscular Volume 84.2, Mean Corpuscular Hemoglobin 27.4, Mean Corpuscular Hemoglobin Concent 32.5, Mean Platelet Volume 9.4, Neutrophils (%) (Auto) 67.3, Lymphocytes (%) (Auto) 24.5, Monocytes (%) (Auto) 4.7, Eosinophils (%) (Auto) 3.0, Basophils (%) (Auto) 0.2, Neutrophils # (Auto) 8.37, Lymphocytes # (Auto) 3.06, Monocytes # (Auto) 0.59, Eosinophils # (Auto) 0.38, Basophils # (Auto) 0.03 08/07/17 21:26 Test 08/07/17 21:26 08/07/17 21:30 White Blood Count 12.47 K/uL (4.8-10.8) Red Blood Count 4.24 M/uL (4.2-5.4) Hemoglobin 11.6 g/dL (12.0-16.0) Hematocrit 35.7 % (37-47) Mean Corpuscular Volume 84.2 fL (80-100) Mean Corpuscular Hemoglobin 27.4 pg (25-34) Mean Corpuscular Hemoglobin Concent 32.5 g/dl (32-36) Platelet Count 448 K/uL (130-400) Mean Platelet Volume 9.4 fL (7.4-10.4) Neutrophils (%) (Auto) 67.3 % Lymphocytes (%) (Auto) 24.5 % Monocytes (%) (Auto) 4.7 % Eosinophils (%) (Auto) 3.0 % Basophils (%) (Auto) 0.2 % Neutrophils # (Auto) 8.37 K/uL (1.4-6.5) Lymphocytes # (Auto) 3.06 K/uL (1.2-3.4) Monocytes # (Auto) 0.59 K/uL (0.11-0.59) Eosinophils # (Auto) 0.38 K/uL (0-0.5) Basophils # (Auto) 0.03 K/uL (0-0.2) RDW Standard Deviation 46.6 fL (36.4-46.3) RDW Coefficient of Variation 15.1 % (11.5-14.5) Immature Granulocyte % (Auto) 0.3 % Immature Granulocyte # (Auto) 0.04 K/uL (0.00-0.02) Prothrombin Time 21.4 SECONDS (9.0-12.0) Prothromb Time International Ratio 2.1 (0.9-1.1) Anion Gap 7.0 mmol/L (3-11) Est Creatinine Clear Calc Drug Dose 129.0 ml/min Estimated GFR () 105.5 Estimated GFR (Non- 91.0 BUN/Creatinine Ratio 10.1 (10-20) Calcium Level 8.6 mg/dl (8.5-10.1) Urine Color RED Urine Appearance CLOUDY (CLEAR) Urine pH 6.5 (4.5-7.5) Urine Specific [place] 1.025 (1.000-1.030) Urine Protein 2+ (NEG) Urine Glucose (UA) NEG (NEG) Urine Ketones NEG (NEG) Urine Occult Blood 3+ (NEG) Urine Nitrite NEG (NEG) Urine Bilirubin NEG (NEG) Urine Urobilinogen NEG (NEG) Urine Leukocyte Esterase NEG (NEG) Urine RBC >30 /hpf (0-4) Urine WBC 10-30 /hpf (0-5) Urine Epithelial Cells 0-5 /lpf (0-5) Urine Bacteria NEG (NEG) Medications Administered Medications (Trade) Dose Ordered Sig/Johnathan Route Start Time Stop Time Status Last Admin Dose Admin Ketorolac Tromethamine (Toradol Inj) 30 mg NOW STAT IV 08/07/17 21:33 08/07/17 21:34 DC 08/07/17 21:39 30 MG ED Course Patient was seen and examined Vital signs including blood pressure were reviewed medications list was verified with patient Labs were obtained, and a saline lock was established The patient was given Toradol 30 g IV for back pain The case was discussed with Dr. Angeles from [facility] who personally evaluated the pt The workup was reviewed with the patient. She voiced understanding, and was comfortable being discharged home. I reviewed discharge instructions the patient. They voiced understanding and had no further questions. Medical Decision Differential diagnosis: Vaginal bleeding, postoperative hemorrhaging, supratherapeutic INR This patient is a 46-year-old female that presents to the emergency department with heavy vaginal bleeding status post laparoscopic hysterectomy 2 weeks ago. On exam, the patient's vital signs were stable. Her abdomen was benign. The patient's hemoglobin is stable at 11.6. INR is therapeutic at 2.1. The case was discussed with from [facility] who kindly evaluated the patient in the emergency department. She performed a speculum exam. The patient tolerated this well. I believe she is stable to be discharged home. She was given restrictions on activity. She was also instructed to count her pads. She will have close follow-up with [facility] next week. She was instructed to return to the emergency department with any new, worsening or concerning symptoms. Medication Reconcilliation Current Medication List: was personally reviewed by me Blood Pressure Screening Patient's blood pressure: Normal blood pressure Consults Consulting Physician: Dr. Angeles Impression Primary Impression: Vaginal bleeding Departure Information Dispostion Home / Self-Care Referrals Ramon العراقي M.D. (PCP) Rubina Trinh M.D. Patient Instructions [facility] Additional Instructions You were evaluated in the emergency department for vaginal bleeding. No strenuous activity until you are seen by the OB doctor in follow-up. Nothing in the vagina. Please keep track of your pads. Please call the [facility] doctor as soon as possible for a follow-up appointment. Please return to the emergency department with any new, worsening or concerning symptoms; especially, dizziness, lightheadedness, difficulty breathing, chest pain or severe abdominal pain.
[2017-08-07 21:44] LABS: BASO % 0.2 %; BASO ABS # 0.03 K/uL (0-0.2); EOS ABS # 0.38 K/uL (0-0.5); HEMATOCRIT 35.7 % (37-47); HEMOGLOBIN 11.6 g/dL (12.0-16.0); IG# 0.04 K/uL (0.00-0.02); LYMPH % 24.5 %; LYMPH ABS # 3.06 K/uL (1.2-3.4); MEAN CELL VOLUME 84.2 fL (80-100); MEAN CORPUSCULAR HEMOGLOBIN 27.4 pg (25-34); MEAN CORPUSCULAR HGB CONC 32.5 g/dl (32-36); MEAN PLATELET VOLUME 9.4 fL (7.4-10.4); MONO % 4.7 %; MONO ABS # 0.59 K/uL (0.11-0.59); NEUT % 67.3 %; NEUT ABS # 8.37 K/uL (1.4-6.5); PLATELET COUNT 448 K/uL (130-400); RED CELL DISTRIBUTION WIDTH CV 15.1 % (11.5-14.5); RED CELL DISTRIBUTION WIDTH SD 46.6 fL (36.4-46.3); WHITE BLOOD COUNT 12.47 K/uL (4.8-10.8)
[2017-08-07 21:51] LABS: INR 2.1 (0.9-1.1)
[2017-08-07 22:01] LABS: CALCIUM 8.6 mg/dl (8.5-10.1); CREATININE 0.79 mg/dl (0.60-1.20); POTASSIUM 3.8 mmol/L (3.5-5.1)
[2017-08-07 22:36] VITALS: TEMP 37
[2017-08-07 23:20] VITALS: BP 126/84; PULSE 81; O2SAT 96
--- NOTE | 2017-08-07 23:35 | Medical Consult ---
Consultation Date of Consultation: Aug 07, 2017. Attending Physician: Dr Sinha/Rubina Cardona Reason for Consultation: Vaginal bleeding, post-hysterectomy History of Present Illness Patient is 46-year-old status post laparoscopic total hysterectomy with robotic assistance performed on 07/26/2017. Today she experienced vaginal bleeding with passage of large clots and came to the emergency department for evaluation. I was asked to see the patient in consultation by Rubina Cardona. Patient additionally has history of pulmonary embolism and has been chronically maintained on Coumadin. Per patient report her recent INR was over 4, she was instructed to hold Coumadin for a few days, and yesterday's INR was 2.1 per patient report. She just restarted her Coumadin yesterday. Today, patient was at a green party watching the [employer] when she began to experience vaginal bleeding. She states she soaked through her clothes and passed multiple large clots. She had previously experienced no vaginal bleeding after the hysterectomy. She reported that she had completed no strenuous activity, and had only walked up approximately 12 steps into the green party and carried a 6 pack of soda. She has not had intercourse since surgery. She denies pain, also denies weakness/dizziness. No additional symptoms other than vaginal bleeding. Past Medical/Surgical History Medical Problems: (1) Acute asthma exacerbation Status: Acute (2) Acute bronchitis Status: Acute (3) Anxiety reaction Status: Acute (4) Asthma with exacerbation Status: Acute (5) Exacerbation of asthma Status: Acute (6) Pedal edema Status: Acute (7) Status asthmaticus Status: Acute (8) Vaginal bleeding Status: Acute Family History Diabetes mellitus FH ischemic heart disease Social History Smoking Status: Never Smoker Marital Status: Housing Status: lives with family Occupation Status: employed Allergies Coded Allergies: Adhesives (Verified Allergy, Intermediate, TAPE- SEVERE ITCHING, 08/07/17) Chlorhexidine (Verified Allergy, Intermediate, ITCHING, 08/07/17) Clarithromycin (Verified Adverse Reaction, Intermediate, NAUSEA, 08/07/17) Clindamycin (Verified Adverse Reaction, Mild, NAUSEA, 08/07/17) Tramadol (Verified Adverse Reaction, Mild, dizziness,SYNCOPE, 08/07/17) Review of Systems Constitutional: No problem reported ENT: No problem reported Respiratory: No problem reported Cardiovascular: No problem reported Abdomen: No problem reported Musculoskeletal: No problem reported Genitourinary - Female: + vaginal bleeding Neurologic: No problem reported Hematologic / Lymphatic: + clotting problems Physical Exam Date Time Temp Pulse Resp B/P (MAP) Pulse Ox O2 Delivery O2 Flow Rate FiO2 08/07/17 22:36 37.0 74 18 122/79 98 Room Air 08/07/17 20:54 36.8 82 20 138/79 100 Room Air General Appearance: WD/WN, no apparent distress Respiratory/Chest: no respiratory distress Cardiovascular: regular rate, rhythm Abdomen/GI: non tender, soft Genitourinary - Female: + pertinent finding (gentle speculum exam showed a small amount of bright red blood in the vagina this was gently swabbed away with a long Q-tip. The cuff appeared intact and was gently probed with a Q-tip and noted to be intact. No active pumping bleeders noted. Monsel solution was gently swabbed along the vaginal cuff to obtain hemostasis.) Neurologic/Psych: alert, normal mood/affect, oriented x 3 Skin: normal color, warm/dry Laboratory Results Last 24 Hours Test 08/07/17 21:26 08/07/17 21:30 White Blood Count 12.47 K/uL Red Blood Count 4.24 M/uL Hemoglobin 11.6 g/dL Hematocrit 35.7 % Mean Corpuscular Volume 84.2 fL Mean Corpuscular Hemoglobin 27.4 pg Mean Corpuscular Hemoglobin Concent 32.5 g/dl Platelet Count 448 K/uL Mean Platelet Volume 9.4 fL Neutrophils (%) (Auto) 67.3 % Lymphocytes (%) (Auto) 24.5 % Monocytes (%) (Auto) 4.7 % Eosinophils (%) (Auto) 3.0 % Basophils (%) (Auto) 0.2 % Neutrophils # (Auto) 8.37 K/uL Lymphocytes # (Auto) 3.06 K/uL Monocytes # (Auto) 0.59 K/uL Eosinophils # (Auto) 0.38 K/uL Basophils # (Auto) 0.03 K/uL RDW Standard Deviation 46.6 fL RDW Coefficient of Variation 15.1 % Immature Granulocyte % (Auto) 0.3 % Immature Granulocyte # (Auto) 0.04 K/uL Prothrombin Time 21.4 SECONDS Prothromb Time International Ratio 2.1 Sodium Level 138 mmol/L Potassium Level 3.8 mmol/L Chloride Level 102 mmol/L Carbon Dioxide Level 29 mmol/L Anion Gap 7.0 mmol/L Blood Urea Nitrogen 8 mg/dl Creatinine 0.79 mg/dl Est Creatinine Clear Calc Drug Dose 129.0 ml/min Estimated GFR () 105.5 Estimated GFR (Non- 91.0 BUN/Creatinine Ratio 10.1 Random Glucose 84 mg/dl Calcium Level 8.6 mg/dl Urine Color RED Urine Appearance CLOUDY Urine pH 6.5 Urine Specific [place] 1.025 Urine Protein 2+ Urine Glucose (UA) NEG Urine Ketones NEG Urine Occult Blood 3+ Urine Nitrite NEG Urine Bilirubin NEG Urine Urobilinogen NEG Urine Leukocyte Esterase NEG Urine RBC >30 /hpf Urine WBC 10-30 /hpf Urine Epithelial Cells 0-5 /lpf Urine Bacteria NEG Assessment & Plan Assessment: 46-year-old status post total laparoscopic hysterectomy with robotic assistance with vaginal bleeding. After examination of vaginal cuff revealing no obvious active bleeding, and hemoglobin of 11.6 which was the same as her hemoglobin after hysterectomy, I feel the patient is stable for discharge. She will continue to monitor her bleeding, which I expect to slow and eventually resolved. It may take longer than typical due to her use of Coumadin. I discussed this with the patient and she is agreeable for discharge home. She has a follow-up visit scheduled with Dr. Trinh in the office on 08/17/2017, and she plans to call to see if she can get seen earlier this week. She is to return immediately to the emergency department if she develops weakness, dizziness, or bleeding increases.
[2017-08-10] MEDS ORDERED: OXYC-57 PO (07:40)
[2017-08-10] MEDS ORDERED: METR500T PO (07:43)
[2017-08-10] MEDS ORDERED: AMOX500T PO (07:45)
[2017-11-14] MEDS ORDERED: CIPR-304 PO (13:14)
[2017-11-14] MEDS ORDERED: HYDR-4079 PO (13:14)
== END 2017-08-07 23:21 | disposition home or self-care (01) ==
LOC: C.EDB 20:51 → C.EDA 23:21
DX: N93.9 Abnormal uterine and vaginal bleeding, unspecified (principal); F41.9 Anxiety disorder, unspecified; J45.909 Unspecified asthma, uncomplicated; J44.9 Chronic obstructive pulmonary disease, unspecified; Z83.3 Family history of diabetes mellitus; Z82.49 Family history of ischemic heart disease and other diseases of the circulatory system; Z79.01 Long term (current) use of anticoagulants; Z51.81 Encounter for therapeutic drug level monitoring

== ENCOUNTER 2017-08-09 10:13 | Inpatient (IN) | payer OTHER ==
[~2017-08-09] VITALS: Ht 172.7 cm; Wt 157.0 kg
[~2017-08-09 10:13] MED LIST changes: -ENOXAPARIN SQ; -IPRA-64 INH; +IPRASOL4 INH; -NORE-18 PO
--- NOTE | 2017-08-09 11:03 | EMERGENCY ROOM VISIT NOTE ---
History First contact with patient: 10:27 Chief Complaint: VAGINAL BLEEDING Stated Complaint: HEMORRAGING POST DIVINCI SURGERY History of Present Illness The patient is a 46 year old female who presents to the Emergency Room with complaints of vaginal bleeding. The patient had a robotic-assisted laparoscopic hysterectomy 2 weeks ago. She was seen here 2 days ago due to vaginal bleeding and was examined by Dr. Angeles in the ER. She reports she she states that she has been bleeding heavily with clots. performed cautery, but the patient has had persistent bleeding. She reports she has bled through 28 diapers with pads inside. The patient denies any strenuous activity. She states that she became dizzy and nauseous this morning. The patient takes Coumadin for a history of pulmonary embolism. She skipped her dose Wednesday and took her normal dose last night. She denies any abdominal pain or fevers. Review of Systems A complete 10 point review of systems was reviewed with the patient with pertinent positives and negatives as per history of present illness. All else were negative. Past Medical/Surgical History Medical Problems: (1) Anxiety (2) Asthma (3) Chronic obstructive lung disease (4) COPD exacerbation (5) Hernia repair (6) Irritable colon (7) Menorrhagia with irregular cycle (8) Post-operative haemorrhage Surgical Problems: (1) H/O hernia repair (2) History of cholecystectomy Family History Diabetes mellitus FH ischemic heart disease Social History Smoking Status: Former Smoker Alcohol Use: occasionally Marital Status: Housing Status: lives with family Occupation Status: employed Current/Historical Medications Scheduled Alprazolam (Xanax), 2 MG PO HS Baclofen (Lioresal), 10 MG PO QPM Budesonide/Formoterol Fumarate (Symbicort 160/4.5 Inhaler ), 2 PUFFS INH BID Cyanocobalamin (Cyanocobalamin), 1,000 MCG SQ WK Ergocalciferol (Vitamin D 97494 Unit), 50,000 UNITS PO WK Fexofenadine Hcl (Susanne), 180 MG PO QAM Fluticasone Propionate (Nasal) (Flonase Allergy Relief), 1 SPRAYS MUKESH BID Montelukast Sodium (Singulair), 10 MG PO HS Naproxen (Aleve), 440 MG PO BID Omeprazole (Prilosec), 20 MG PO QAM Ranitidine Hcl (Zantac), 150 MG PO HS Tiotropium Witter (Spiriva Respimat), 1 PUFFS INH BID Warfarin Sodium (Coumadin), 10 MG PO UD Zolpidem Tartrate (Ambien Cr), 6.25 MG PO HS Scheduled PRN Furosemide (Lasix), 20 MG PO DAILY PRN for SWELLING Hydrocodone/Acetaminophen 10MG/325MG (Macon 10MG/325MG), 1 TAB PO Q6H PRN for Pain Ipratropium-Albuterol (Duoneb), 1 TREATMENT INH Q4 PRN for COPD Ipratropium-Albuterol (Combivent Respimat), 2 PUFFS INH Q2H PRN for SOB/Wheezing Oxycodone/Acetaminophen 5MG/325MG (Percocet 5MG/325MG), 1 TABLET PO Q4H PRN for Pain Physical Exam Vital Signs Date Time Temp Pulse Resp B/P (MAP) Pulse Ox O2 Delivery O2 Flow Rate FiO2 08/09/17 15:38 16 90/66 97 Room Air 08/09/17 15:37 90/66 08/09/17 15:16 37.0 100 16 97/60 97 Room Air 08/09/17 14:29 92 20 106/67 95 08/09/17 13:44 86 16 115/65 98 Room Air 08/09/17 12:32 94 90/60 100 103/61 112 88/65 08/09/17 10:18 36.4 101 18 147/82 98 Room Air Physical Exam VITALS: Vitals are noted on the nurse's note and reviewed by myself. Vital signs stable. GENERAL: This is a 46-year-old female, in no acute distress, nondiaphoretic, well-developed well-nourished. HEART: Regular rate and rhythm without murmurs gallops or rubs. LUNGS: Clear to auscultation bilaterally without wheezes, rales or rhonchi. ABDOMEN: Positive bowel sounds x 4. Soft, nontender to palpation. NEURO: Patient was alert and oriented to person place and time. Medical Decision & Procedures ER Provider Diagnostic Interpretation: CT SCAN OF THE ABDOMEN AND PELVIS WITHOUT IV CONTRAST IMPRESSION: 1. Suboptimal examination without oral and IV contrast. 2. There are no acute infectious or inflammatory findings in the abdomen or pelvis. 3. The uterus is surgically absent. Fluid and gas are present within the upper vagina, likely related to recent surgery. Correlation with direct visualization will be required. No hematoma is seen in the pelvis. 4. Hepatomegaly. 5. Additional findings as above. Laboratory Results 08/09/17 12:51 Red Blood Count 2.70, Mean Corpuscular Volume 84.8, Mean Corpuscular Hemoglobin 27.4, Mean Corpuscular Hemoglobin Concent 32.3, Mean Platelet Volume 9.5, Neutrophils (%) (Auto) 73.8, Lymphocytes (%) (Auto) 19.1, Monocytes (%) (Auto) 4.4, Eosinophils (%) (Auto) 1.8, Basophils (%) (Auto) 0.2, Neutrophils # (Auto) 9.45, Lymphocytes # (Auto) 2.45, Monocytes # (Auto) 0.56, Eosinophils # (Auto) 0.23, Basophils # (Auto) 0.03 08/09/17 12:51 Test 08/09/17 12:51 White Blood Count 12.81 K/uL (4.8-10.8) Red Blood Count 2.70 M/uL (4.2-5.4) Hemoglobin 7.4 g/dL (12.0-16.0) Hematocrit 22.9 % (37-47) Mean Corpuscular Volume 84.8 fL (80-100) Mean Corpuscular Hemoglobin 27.4 pg (25-34) Mean Corpuscular Hemoglobin Concent 32.3 g/dl (32-36) Platelet Count 412 K/uL (130-400) Mean Platelet Volume 9.5 fL (7.4-10.4) Neutrophils (%) (Auto) 73.8 % Lymphocytes (%) (Auto) 19.1 % Monocytes (%) (Auto) 4.4 % Eosinophils (%) (Auto) 1.8 % Basophils (%) (Auto) 0.2 % Neutrophils # (Auto) 9.45 K/uL (1.4-6.5) Lymphocytes # (Auto) 2.45 K/uL (1.2-3.4) Monocytes # (Auto) 0.56 K/uL (0.11-0.59) Eosinophils # (Auto) 0.23 K/uL (0-0.5) Basophils # (Auto) 0.03 K/uL (0-0.2) RDW Standard Deviation 47.0 fL (36.4-46.3) RDW Coefficient of Variation 15.4 % (11.5-14.5) Immature Granulocyte % (Auto) 0.7 % Immature Granulocyte # (Auto) 0.09 K/uL (0.00-0.02) Red Blood Cell Morphology Unremarkable Prothrombin Time 16.1 SECONDS (9.0-12.0) Prothromb Time International Ratio 1.5 (0.9-1.1) Activated Partial Thromboplast Time 34.1 SECONDS (21.0-31.0) Partial Thromboplastin Ratio 1.3 Anion Gap 5.0 mmol/L (3-11) Estimated GFR () 130.7 Estimated GFR (Non- 112.7 BUN/Creatinine Ratio 16.2 (10-20) Calcium Level 7.9 mg/dl (8.5-10.1) Medications Administered Medications (Trade) Dose Ordered Sig/Johnathan Route Start Time Stop Time Status Last Admin Dose Admin Acetaminophen (Tylenol Tab) 1,000 mg NOW STAT PO 08/09/17 12:28 08/09/17 12:30 DC 08/09/17 12:43 1,000 MG Sodium Chloride 1,000 ml @ 999 mls/hr Q1H1M STAT IV 08/09/17 13:07 08/09/17 14:07 DC 08/09/17 13:07 999 MLS/HR Morphine Sulfate (MoRPHine SULFATE INJ) 4 mg NOW STAT IV 08/09/17 13:41 08/09/17 13:42 DC 08/09/17 13:52 4 MG Ondansetron HCl (Zofran Inj) 4 mg NOW STAT IV 08/09/17 13:41 08/09/17 13:42 DC 08/09/17 13:52 4 MG ED Course The patient was evaluated as above. Labs were drawn and IV access was obtained. Dr. Reyes of [facility] was consulted. He recommended ordering a CT scan. He will be in to evaluate the patient the ED. Patient was evaluated by Dr. Reyes. He will take the patient to the OR. Dr. Roberts was consulted. She recommended 5 mg vitamin K IV for Coumadin reversal. Risks/benefits of blood transfusion were discussed with the patient. Consent forms were signed. 2 units of packed red blood cells were ordered and the first unit was hung after discussion of risks/benefits. The patient was taken to the OR for operative management. Dr. Reyes did ask that I consult the medical team for a medical consultation. Case was discussed with Dr. Calderon, who is aware of the patient. Medical Decision Differential diagnosis includes postoperative hemorrhage, symptomatic anemia, among others. The patient is a 46-year-old female who presents today complaining of persistent vaginal bleeding following a hysterectomy. Patient was a very difficult stick, however when labs were obtained and revealed a hemoglobin of 7.4, which is significantly decreased from a hemoglobin of 11.6 two days ago. Patient has had continued heavy bleeding. [facility] was consulted and will take the patient to the OR for management. She was given vitamin K to reverse Coumadin in the ER as well as 1 unit of blood was hung while the patient was in the emergency department. The hospitalist was also consulted for medical management. Patient was slightly hypotensive but remains stable while in the emergency department. The patient's case was reviewed with Dr. Mathis, ED attending physician, who agreed with my assessment and treatment plan. Medication Reconcilliation Current Medication List: was personally reviewed by id Blood Pressure Screening Patient's blood pressure: Normal blood pressure Impression Primary Impression: Post-operative hemorrhage Additional Impression: Symptomatic anemia Critical Care I have personally spent greater than 35 minutes of critical care time in the direct management of this patient. This includes bedside care, interpretation of diagnostic studies, and testing, discussion with consultants, patient, and family members, and other required patient management activities. This 35 minutes is in excess of all separately billable procedures. Departure Information Referrals Pro,Ramon Mcguire M.D. (PCP) Patient Instructions My [facility] Problem Qualifiers Primary Impression: Post-operative hemorrhage Surgical complication system/body Area: genitourinary Procedure type: genitourinary Qualified Codes: N99.820 - Postprocedural hemorrhage of a genitourinary system organ or structure following a genitourinary system procedure
[2017-08-09] MEDS ORDERED: ACETAMINOPHEN 500 MG TAB PO STA (12:28)
[2017-08-09] MEDS ORDERED: SODIUM CHLORIDE 0.9% 1000ML 1,000 ML IV STA (13:07)
[2017-08-09 13:21] LABS: BLOOD UREA NITROGEN 9 mg/dl (7-18); CALCIUM 7.9 mg/dl (8.5-10.1); CARBON DIOXIDE 27 mmol/L (21-32); CREATININE 0.57 mg/dl (0.60-1.20); GLUCOSE 113 mg/dl (70-99); POTASSIUM 4.3 mmol/L (3.5-5.1); SODIUM 138 mmol/L (136-145)
[2017-08-09 13:22] LABS: INR 1.5 (0.9-1.1); PTT PATIENT 34.1 SECONDS (21.0-31.0)
[2017-08-09] MEDS ORDERED: MoRPHine SULFATE 4 MG/ML 1 ML CARP\\VIAL IV STA (13:41)
[2017-08-09] MEDS ORDERED: ONDANSETRON INJ 2 MG/ML 2 ML VIAL IV STA (13:41)
[2017-08-09 13:48] LABS: HEMATOCRIT 22.9 % (37-47); HEMOGLOBIN 7.4 g/dL (12.0-16.0); MEAN CELL VOLUME 84.8 fL (80-100); MEAN CORPUSCULAR HEMOGLOBIN 27.4 pg (25-34); MEAN CORPUSCULAR HGB CONC 32.3 g/dl (32-36); MEAN PLATELET VOLUME 9.5 fL (7.4-10.4); PLATELET COUNT 412 K/uL (130-400); RED CELL DISTRIBUTION WIDTH CV 15.4 % (11.5-14.5); WHITE BLOOD COUNT 12.81 K/uL (4.8-10.8)
[2017-08-09 13:51] LABS: BASO % 0.2 %; BASO ABS # 0.03 K/uL (0-0.2); EOS % 1.8 %; EOS ABS # 0.23 K/uL (0-0.5); IG# 0.09 K/uL (0.00-0.02); LYMPH % 19.1 %; LYMPH ABS # 2.45 K/uL (1.2-3.4); MONO % 4.4 %; MONO ABS # 0.56 K/uL (0.11-0.59); NEUT % 73.8 %; NEUT ABS # 9.45 K/uL (1.4-6.5)
--- NOTE | 2017-08-09 14:53 | DIAGNOSTIC IMAGING REPORT ---
CT SCAN OF THE ABDOMEN AND PELVIS WITHOUT IV CONTRAST CLINICAL HISTORY: Vaginal bleeding status post hysterectomy. COMPARISON STUDY: Abdominal CT dated 01/05/2011. TECHNIQUE: CT scan of the abdomen and pelvis is performed from the lung bases to the proximal femora. Images are reviewed in the axial, sagittal, and coronal planes. IV contrast was not administered for this examination as per the referring clinician. Note that the examination was performed in suboptimal fashion without oral and IV contrast.. A dose lowering technique was utilized adhering to the principles of ALARA. The examination is degraded by large body habitus, and by streak artifact from the body wall abutting the CT gantry. CT DOSE: 2034.72 mGy.cm FINDINGS: Lung bases: The heart is normal in size and without pericardial effusion. The lung bases are clear noting minimal bibasilar atelectasis. Liver: The unenhanced liver is enlarged, measuring 21 cm in length. The liver is normal in contour and attenuation. There is no intrahepatic biliary ductal dilatation. Minimal pneumobilia is identified and suggests previous sphincterotomy. Gallbladder: Surgically absent noting clips in the gallbladder fossa. Spleen: Normal in size and attenuation. Pancreas: The unenhanced pancreas is grossly unremarkable. Adrenal glands: Unremarkable. Kidneys: The unenhanced kidneys are normal in size and without hydronephrosis. There are no renal calculi identified. There is no evidence of contour deforming renal mass lesion. Abdominal vasculature: The abdominal aorta is normal in course and caliber. Bowel: The small bowel and colon are normal in course and caliber. The appendix is not identified and reported surgically absent. Peritoneum: There is no intraperitoneal free air or abdominal ascites. There is a complex fat-containing ventral hernia. Lymphadenopathy: None. Pelvic viscera: The bladder is normal as visualized. The uterus is surgically absent. Fluid and gas are noted within the upper vagina. No hematoma is identified. No adnexal lesion is seen. Skeletal structures: No lytic or blastic lesions are seen. IMPRESSION: 1. Suboptimal examination without oral and IV contrast. 2. There are no acute infectious or inflammatory findings in the abdomen or pelvis. 3. The uterus is surgically absent. Fluid and gas are present within the upper vagina, likely related to recent surgery. Correlation with direct visualization will be required. No hematoma is seen in the pelvis. 4. Hepatomegaly. 5. Additional findings as above. Electronically signed by: Arias Montenegro M.D. 08/09/2017 2:52 PM Dictated Date/Time: 08/09/2017 2:48 PM
[2017-08-09] MEDS ORDERED: PHYTONADIONE INJ 5 MG in SODIUM CHLORIDE 0.9% 50ML 50 ML IV ONE (15:15)
--- NOTE | 2017-08-09 15:44 | HISTORY & PHYSICAL EXAMINATION ---
DATE OF ADMISSION: 08/09/2017 HISTORY OF PRESENT ILLNESS: Jessica is a 46-year-old woman known to Dr. Trinh in our practice in July 26. She had a laparoscopic hysterectomy, this was uncomplicated per operative records. She states that on Wednesday, 2 days ago, she noticed a significant increase in vaginal bleeding. She was at a [employer] and noticed clots and bleeding. She presented to the Emergency Room after several hours. She did not have significant pain then. She was assessed by Dr. Angeles at that time and bleeding subsided and the patient was discharged home. Since then, the bleeding has reactivated today. She has been here since 9:00 in the morning and she says the bleeding is worse, she is having some cramping as well. She does not have significant back pain or flank pain. She does not describe a fever or chills. She does not have any fluid type discharge, it is blood. Her hemoglobin has dropped significantly and is now 7.4 and white count is 12.81. PAST MEDICAL HISTORY: Medical history significant. She has a history of a pulmonary embolus and is currently on Coumadin, although has not been taking her doses as often as usual, recently. The patient also has a history of COPD and asthma. MEDICATION ALLERGIES: ADHESIVES, CHLORHEXIDINE, CLARITHROMYCIN, CLINDAMYCIN AND TRAMADOL. FAMILY HISTORY: Noncontributory. PHYSICAL EXAMINATION: VITAL SIGNS: Stable. She is afebrile. CHEST: Clear. CARDIOVASCULAR: Normal rate and rhythm. No audible murmur. ABDOMEN: Benign. Bowel sounds positive, nontender. Incision is clean, dry and intact. PELVIC: Done with nursing using a sterile spec. I viewed the cuff, it does appear intact, however, there is a raw edge that is bleeding significantly. I do not see any bowel or viscera protruding through. Using swabs, I was able to see the area, there is no puss discharge and again no obvious defect noticed in the vagina. Gentle bimanual exam was performed too and I could not find a defect. IMPRESSION AND PLAN: The patient has significant bleeding. I do not believe she has active cuff bleeding. We did check a CT scan and this is negative for any hematoma or collection. I believe she is bleeding actively from her cuff. At this stage with the level of bleeding, I have recommended surgery of vaginal cuff repair. I discussed risks including bleeding, infection, injury to surrounding structures including the bowel, bladder and ureters and failure of this to fix the problem that sometimes bleeding can reactivate after the procedure, there really is not an alternative, we could observe her, but she is bleeding significantly at this stage. Additionally, we will give preoperative antibiotics with 2 grams of Ancef. Additionally, we will transfuse her, start 1 unit now, will plan 2 units total at least. We will consult medicine, the patient is on anticoagulation. Her INR is only 1.5; however, we did speak to Dr. Roberts and vitamin K has been ordered. If bleeding does not improve, FFP will be considered. Will consult the medical service as well. JOVANY
[2017-08-09] MEDS ORDERED: EpHEDrine SULFATE INJ 50 MG/ML AMP IV PRN (15:45)
[2017-08-09] MEDS ORDERED: NALOXONE HCL 0.4 MG/1 ML VIAL/CARP IV PRN (15:45)
[2017-08-09] MEDS ORDERED: FLUMAZENIL 0.1 MG/1 ML 10 ML VIAL IV PRN (15:45)
[2017-08-09] MEDS ORDERED: ATROPINE SULFATE 0.1 MG/ML 5ML SYR IV PRN (15:45)
[2017-08-09] MEDS ORDERED: LABETALOL HCL IV 5 MG/ML 20ML IV PRN (15:45)
[2017-08-09] MEDS ORDERED: HYDROmorphone INJ 2 MG/ML SYR/VIAL IV PRN (15:45)
[2017-08-09] MEDS ORDERED: PHENYLEPHRINE 100MCG/ML 5ML SYR IV PRN (15:45)
[2017-08-09] MEDS ORDERED: ONDANSETRON INJ 2 MG/ML 2 ML VIAL IV PRN ×2 (15:45→17:30)
[2017-08-09] MEDS ORDERED: MEPERIDINE HCL 25 MG/ML CARP IV PRN (15:45)
[2017-08-09] MEDS ORDERED: FENTANYL CITRATE INJ 50 MCG/1 ML 2 ML VIAL IV PRN (15:45)
[2017-08-09] MEDS ORDERED: FENTANYL CITRATE INJ 50 MCG/1 ML 2 ML VIAL ONE (15:51)
[2017-08-09] MEDS ORDERED: MIDAZOLAM HCL 1 MG/ML 2ML VIAL ONE (15:51)
[2017-08-09] MEDS ORDERED: ONDANSETRON INJ 2 MG/ML 2 ML VIAL ONE ×2 (15:54→17:36)
[2017-08-09] MEDS ORDERED: CEFAZOLIN SOD 1 GM VIAL ONE (15:54)
[2017-08-09] MEDS ORDERED: DEXAMETHASONE SOD INJ 4 MG/ML VIAL ONE (15:54)
[2017-08-09] MEDS ORDERED: SUCCINYLCHOLINE 100MG/5ML SYR IV ONE (15:55)
[2017-08-09] MEDS ORDERED: LIDOCAINE HCL 2% 2 ML VIAL (20MG/ML) ONE (15:55)
[2017-08-09] MEDS ORDERED: PROPOFOL IV EMULSION 10 MG/ML 20 ML VIAL IV ONE (15:55)
[2017-08-09] MEDS ORDERED: SCOPOLAMINE 1.5 MG TDSY TD ONE (16:01)
[2017-08-09] MEDS ORDERED: ALBUT/IPRATROP 3MG/0.5MG NEB 3 ML VIAL ONE (16:02)
[2017-08-09] MEDS ORDERED: PHENYLEPHRINE 100MCG/ML 5ML SYR ONE (16:44)
[2017-08-09] MEDS ORDERED: PREMARIN VAG CRM 14 APPLN/30 GM TUBE ONE (17:16)
[2017-08-09] MEDS ORDERED: LACTATED RINGER'S 1000ML 1,000 ML IV SCH (17:26)
--- NOTE | 2017-08-09 17:29 | [facility] Post Operative Brief Note ---
Immediate Operative Summary Operative Date Aug 09, 2017. Pre-Operative Diagnosis post operative vaginal bleeding Post-Operative Diagnosis post operative vaginal bleeding Procedure(s) Performed Repair of vaginal cuff Surgeon Dr. Louis Reyes 911 Operator Surgeon(s) Dr. Logan Trinh Estimated Blood Loss 100ml Findings Cuff superficial tear Specimens none per surgeon Drains Schuler Anesthesia General Complication(s) None Disposition Surgical ICU
[2017-08-09] MEDS ORDERED: IBUPROFEN 600 MG TAB PO PRN (17:30)
[2017-08-09] MEDS ORDERED: MAGNESIUM HYDROXIDE SUSP 30 ML UDC PO PRN (17:30)
[2017-08-09] MEDS ORDERED: PROMETHAZINE HCL INJ 12.5 MG in SODIUM CHLORIDE 0.9% 50ML 50 ML IV PRN (17:30)
[2017-08-09] MEDS ORDERED: ACETAMINOPHEN 325 MG TAB PO PRN (17:30)
[2017-08-09] MEDS ORDERED: BISACODYL 10 MG SUPP PR PRN (17:30)
[2017-08-09] MEDS ORDERED: PROMETHAZINE HCL INJ 25 MG in SODIUM CHLORIDE 0.9% 50ML 50 ML IV PRN (17:30)
[2017-08-09] MEDS ORDERED: KETOROLAC TROMETHAMINE 30 MG/ML VIAL IV. PRN (17:30)
[2017-08-09] MEDS ORDERED: OXYCODONE/ACETAMINOPHEN 5-325 TAB PO PRN (17:30)
[2017-08-09] MEDS ORDERED: MEPERIDINE HCL 50 MG/ML CARP IV PRN (17:30)
[2017-08-09] MEDS ORDERED: CEFAZOLIN IV 2,000 MG in DEXTROSE 5% 50ML 50 ML IV SCH (17:45)
--- NOTE | 2017-08-09 17:45 | OPERATIVE REPORT ---
DATE OF OPERATION: 08/09/2017 PREOPERATIVE DIAGNOSIS: Postoperative vaginal bleeding. POSTOPERATIVE DIAGNOSIS: Same. OPERATIVE PROCEDURE: Repair of vaginal cuff. SURGEON: Dr. Reyes. HOOF TRIMMER: Dr. Trinh. ESTIMATED BLOOD LOSS: 100 mL. FINDINGS: Superficial cuff tear. SPECIMENS: None. DRAINS: Schuler. ANESTHETIC: General. COMPLICATIONS: None. DISPOSITION: ICU. DESCRIPTION OF PROCEDURE: Jessica was given a general anesthetic and preoperative antibiotics, SCDs were applied on her legs. The patient was placed in lithotomy position. After being prepped and draped and time out performed, a Schuler catheter was placed in her bladder. I was able to use a long weighted speculum; however, it was very difficult to reach for cuff as it was very highly suspended in the vagina and body habitus also played a roll. I was eventually able to use a Graves speculum and insert this. Because of difficulties with visualization, I did call in Dr. Trinh, the patient's primary surgeon and doctor as well for assistance. Once I was able to see the cuff on the left posterior aspect, there was a superficial tear in the cuff that was bleeding actively. There was no sign of cuff dehiscence and no pus seen. Using numerous [id number] Vicryls on a UR-6 needle, approximately 6 separate stitches were thrown to close the left corner, the right corner and anterior to posterior to close the cuff again. Good tissue thickness was obtained and care was to avoid overly deep sutures into either bladder or rectum. At this stage, when the cuff was fully closed, there was minimal oozing. I do feel infection was probably at play here too with her white count slightly being elevated, so we decided to pack the cuff with vaginal packing and Premarin cream. Once this was done, bleeding was much better, urine was clear and instruments removed from the vagina. Sponge and instrument counts correct. I attest to the content of the Intraoperative Record and any orders documented therein. Any exception s are noted below.
--- NOTE | 2017-08-09 18:09 | Anesthesiology Progress Note ---
Anesthesia Post Op Note Date & Time Aug 09, 2017 at 18:09 Vital Signs Pain Intensity: 1 Vital Signs Past 12 Hours Date Time Temp Pulse Resp B/P (MAP) Pulse Ox O2 Delivery O2 Flow Rate FiO2 08/09/17 18:00 90 16 159/87 100 Nasal Cannula 3 08/09/17 17:50 95 16 136/89 100 Nasal Cannula 3 08/09/17 17:40 37 99 16 129/78 100 Nasal Cannula 3 08/09/17 15:38 16 90/66 97 Room Air 08/09/17 15:37 90/66 08/09/17 15:16 37.0 100 16 97/60 97 Room Air 08/09/17 14:29 92 20 106/67 95 08/09/17 13:44 86 16 115/65 98 Room Air 08/09/17 12:32 94 90/60 100 103/61 112 88/65 08/09/17 10:18 36.4 101 18 147/82 98 Room Air Notes Mental Status: alert / awake / arousable, participated in evaluation Pt Amnestic to Procedure: Yes Nausea / Vomiting: adequately controlled Pain: adequately controlled Airway Patency, RR, SpO2: stable & adequate BP & HR: stable & adequate Hydration State: stable & adequate Anesthetic Complications: no major complications apparent
[2017-08-09 18:30] VITALS: BP 111/66; PULSE 92; TEMP 37.3; O2SAT 98; Ht 172.7 cm; Wt 157.0 kg
[2017-08-09 19:00] VITALS: BP 116/63; PULSE 83; O2SAT 100
[2017-08-09 19:30] VITALS: BP 118/70; PULSE 88; O2SAT 98
[2017-08-09] MEDS: METRONIDAZOLE / NSS 500 MG in PREMIXED NSS 100 ML IV SCH (19:36)
[2017-08-09] MEDS: MEPERIDINE HCL 50 MG/ML CARP IV PRN (19:46)
[2017-08-09 20:30] VITALS: BP 108/48; PULSE 74; O2SAT 99
[2017-08-09] MEDS: DOCUSATE SODIUM 100 MG CAP PO SCH (20:52)
[2017-08-09] MEDS: CEFAZOLIN IV 2,000 MG in SYRINGE 0 ML IV SCH (21:37)
[2017-08-09] MEDS: OXYCODONE/ACETAMINOPHEN 5-325 TAB PO PRN (22:04)
[2017-08-09 23:30] VITALS: BP 102/55; PULSE 72; TEMP 36.8; O2SAT 99
[2017-08-10] MEDS: MEPERIDINE HCL 50 MG/ML CARP IV PRN (01:35)
[2017-08-10 03:25] VITALS: BP 103/53; PULSE 67; TEMP 36.9; O2SAT 97
[2017-08-10] MEDS: METRONIDAZOLE / NSS 500 MG in PREMIXED NSS 100 ML IV SCH ×3 (04:24→11:56)
[2017-08-10] MEDS ORDERED: CEFAZOLIN IV 3,000 MG in DEXTROSE 5% 50ML 50 ML IV SCH (06:00)
[2017-08-10] MEDS: CEFAZOLIN IV 2,000 MG in SYRINGE 0 ML IV SCH (06:02)
[2017-08-10 06:07] LABS: BASO % 0.1 %; BASO ABS # 0.01 K/uL (0-0.2); HEMOGLOBIN 8.7 g/dL (12.0-16.0); IG# 0.21 K/uL (0.00-0.02); LYMPH % 9.6 %; LYMPH ABS # 1.73 K/uL (1.2-3.4); MEAN CELL VOLUME 86.1 fL (80-100); MEAN CORPUSCULAR HEMOGLOBIN 28.8 pg (25-34); MEAN CORPUSCULAR HGB CONC 33.5 g/dl (32-36); MEAN PLATELET VOLUME 9.3 fL (7.4-10.4); MONO % 2.2 %; MONO ABS # 0.39 K/uL (0.11-0.59); NEUT % 86.9 %; NEUT ABS # 15.77 K/uL (1.4-6.5); NUCLEATED RED BLOOD CELL ABS 0.04 K/uL (0-0); PLATELET COUNT 328 K/uL (130-400); RED CELL DISTRIBUTION WIDTH CV 15.4 % (11.5-14.5); RED CELL DISTRIBUTION WIDTH SD 48.3 fL (36.4-46.3); WHITE BLOOD COUNT 18.11 K/uL (4.8-10.8)
[2017-08-10 06:38] LABS: CALCIUM 7.9 mg/dl (8.5-10.1); CREATININE 0.64 mg/dl (0.60-1.20); POTASSIUM 4.3 mmol/L (3.5-5.1)
[2017-08-10] MEDS: OXYCODONE/ACETAMINOPHEN 5-325 TAB PO PRN ×2 (07:27→11:42)
--- NOTE | 2017-08-10 07:39 | OB/GYN Progress Note ---
DIRECTOR IMMUNOLOGY Progress Note Date of Service Aug 10, 2017. Subjective conversation w/ patient, physical exam, lab review Ambulation: ambulating normally Voiding: carrasco catheter in place Passing Gas: Yes Diet Tolerance: Clear Liquids Pain: controlled with oral pain meds. Notes: Patient is doing well this am. She notes she has pelvic pressure which is likely due to the packing. No vaginal d/c noted. Feeling much better after two units of blood. Objective Vital Signs Date Time Temp Pulse Resp B/P (MAP) Pulse Ox O2 Delivery O2 Flow Rate FiO2 08/10/17 03:25 36.9 67 18 103/53 (70) 97 Room Air 08/09/17 23:30 36.8 72 18 102/55 (71) 99 Room Air 08/09/17 23:30 99 Room Air 08/09/17 20:30 74 18 108/48 (68) 99 Room Air 08/09/17 19:30 88 18 118/70 (86) 98 Room Air 08/09/17 19:00 83 18 116/63 (80) 100 Room Air 08/09/17 18:30 98 Room Air 08/09/17 18:30 37.3 92 18 111/66 98 Room Air 08/09/17 18:20 36.9 88 16 136/86 99 Nasal Cannula 3 08/09/17 18:10 36.9 92 16 120/75 100 Nasal Cannula 3 08/09/17 18:00 90 16 159/87 100 Nasal Cannula 3 08/09/17 17:50 95 16 136/89 100 Nasal Cannula 3 08/09/17 17:40 37 99 16 129/78 100 Nasal Cannula 3 08/09/17 15:38 16 90/66 97 Room Air 08/09/17 15:37 90/66 08/09/17 15:16 37.0 100 16 97/60 97 Room Air 08/09/17 14:29 92 20 106/67 95 08/09/17 13:44 86 16 115/65 98 Room Air 08/09/17 12:32 94 90/60 100 103/61 112 88/65 08/09/17 10:18 36.4 101 18 147/82 98 Room Air Physical Exam General Appearance: WELL-APPEARING, WD/WN, NO APPARENT DISTRESS Abdomen: non tender, soft Extremities: non-tender, normal inspection packing removed with very little old blood noted. Laboratory Results Last 24 Hours Test 08/09/17 12:51 08/10/17 05:50 White Blood Count 12.81 K/uL 18.11 K/uL Red Blood Count 2.70 M/uL 3.02 M/uL Hemoglobin 7.4 g/dL 8.7 g/dL Hematocrit 22.9 % 26.0 % Mean Corpuscular Volume 84.8 fL 86.1 fL Mean Corpuscular Hemoglobin 27.4 pg 28.8 pg Mean Corpuscular Hemoglobin Concent 32.3 g/dl 33.5 g/dl Platelet Count 412 K/uL 328 K/uL Mean Platelet Volume 9.5 fL 9.3 fL Neutrophils (%) (Auto) 73.8 % 86.9 % Lymphocytes (%) (Auto) 19.1 % 9.6 % Monocytes (%) (Auto) 4.4 % 2.2 % Eosinophils (%) (Auto) 1.8 % 0.0 % Basophils (%) (Auto) 0.2 % 0.1 % Neutrophils # (Auto) 9.45 K/uL 15.77 K/uL Lymphocytes # (Auto) 2.45 K/uL 1.73 K/uL Monocytes # (Auto) 0.56 K/uL 0.39 K/uL Eosinophils # (Auto) 0.23 K/uL 0.00 K/uL Basophils # (Auto) 0.03 K/uL 0.01 K/uL RDW Standard Deviation 47.0 fL 48.3 fL RDW Coefficient of Variation 15.4 % 15.4 % Immature Granulocyte % (Auto) 0.7 % 1.2 % Immature Granulocyte # (Auto) 0.09 K/uL 0.21 K/uL Red Blood Cell Morphology Unremarkable Prothrombin Time 16.1 SECONDS Prothromb Time International Ratio 1.5 Activated Partial Thromboplast Time 34.1 SECONDS Partial Thromboplastin Ratio 1.3 Sodium Level 138 mmol/L 137 mmol/L Potassium Level 4.3 mmol/L 4.3 mmol/L Chloride Level 106 mmol/L 107 mmol/L Carbon Dioxide Level 27 mmol/L 24 mmol/L Anion Gap 5.0 mmol/L 6.0 mmol/L Blood Urea Nitrogen 9 mg/dl 7 mg/dl Creatinine 0.57 mg/dl 0.64 mg/dl Estimated GFR () 130.7 125.8 Estimated GFR (Non- 112.7 108.5 BUN/Creatinine Ratio 16.2 10.9 Random Glucose 113 mg/dl 133 mg/dl Calcium Level 7.9 mg/dl 7.9 mg/dl Nucleated RBC Absolute Count (auto) 0.04 K/uL Nucleated Red Blood Cells % 0.2 % Est Creatinine Clear Calc Drug Dose 179.1 ml/min Assessment and Plan Post-Op Day Number: 1 Continue Routine Care: Patient doing well and once she voids can go home from a surgical standpoint. Will need medicine to stop by first and give us a plan for her anticoagulation management. It is ok for her to resume coumadin. Has f/u in the office with me on 08/17 scheduled. Will d/c on augmentin and flagyl. Precautions reviewed . Did note with the patient that she will likely not be able to go back to work until 8 weeks given the heavy lifting required with her job. She expresses understanding.
[2017-08-10] MEDS ORDERED: OXYC-57 PO (07:40)
--- NOTE | 2017-08-10 07:41 | Discharge Instructions ---
Discharge Instructions Date of Service Aug 10, 2017. Admission Reason for Admission: Post Operative Hemorrhage Discharge Discharge Diagnosis / Problem: repair of vaginal cuff Discharge Goals Goal(s): Specific Goal(s) Activity Recommendations Activity Limitations: per Instructions/Follow-up section . Instructions / Follow-Up Instructions / Follow-Up POST OPERATIVE: BOWEL FUNCTION/MEDICATIONS: 1. Constipation pain and discomfort are the most common complaints 5-7 days after surgery. Points 2-6 address the things that can help. 2. Chewing gum can help stimulate the gut and help improve digestion and motility. 3. Milk of Magnesia 1-2 times per day until return of bowel function. 4. Colace is a stool softener that helps. Taking this 2-3 times per day until bowel function returns to normal is highly recommended. 5. Dulcolax is a laxative that may be used if several days have passed without a bowel movement. Alternatively Miralax may be used daily instead. 6. Drink plenty of fluids as this will also reduce constipation. 7. Narcotic pain medications will be prescribed by your physician. They are safe to use and we encourage you to use them. If you are not allergic, ibuprofen will also be prescribed. Many patients will be able to transition off of the narcotic medications to ibuprofen by postoperative day 3. ACTIVITY RECOMMENDATIONS: 1. Get plenty of rest and listen to your body. If you are tired, take a nap. 2. You may shower, but do not take a tub bath until you see your doctor at the 2 week post operative visit. 3. Absolutely NO intercourse and nothing in the vagina until you are examined by your doctor at the 6 week visit. At that visit it will be determined when such activities can be resumed. This can range from 6-12 weeks after your surgery depending on healing time. 4. The main physical activity in the first week should be walking. By the second week you can slowly increase activity. There are no limits on walking up and down stairs. 5. Do not lift more than 5-10 lbs for 4 weeks. Remember the "one-handed rule", i.e. if you can lift something with only one hand it's likely okay. 6. Minimize block mechanic like vacuuming and exercising for 4 weeks. "Overdoing it" can lead to incisions not healing, pain and vaginal bleeding , so again, listen to your body. 7. Driving can be resumed when you feel able. Do not drive within 24 hours of taking a narcotic medication. EXPECTATIONS: 1. Vaginal spotting, bleeding and discharge are common after surgery. There may even be an odor to the discharge which is often related to sutures used in the vagina. If you experience heavy vaginal bleeding, call the office number day or night [phone]. 2. Bladder discomfort is common after surgery from the catheter. This usually resolves in 1-2 weeks. 3. By the end of the 3rd or 4th week you should be feeling much better. It may take up to 6 weeks for your energy levels to return to normal. 4. Narcotic medications have side effects such as: dizziness, headache, nausea and/or vomiting. If you suspect your pain medication is causing problems, call our office and we may be able to prescribe an alternate medication. 5. The skin incisions are often covered with a liquid bandage. This will gradually peel off over time. CALL THE OFFICE IF YOU HAVE ANY OF THE FOLLOWIN. Temperature of 101 degrees or higher. 2. Severe abdominal or pelvic pain not relieved by pain medication. 3. Persistent nausea or vomiting. 4. Increased pain with urination or difficulty urinating. 5. Bright red bleeding that soaks more than 1 pad per hour. CONTACT PHONE NUMBERS: Main Office: [phone] Surgical Nurse: [phone] extension [phone] FOLLOW-UP: Post-Operative Appointments: * Individual instructions will have been given about the timing of your first examination, but this is usually at the end of the second week home. * You will need to call the office at soon after discharge to make the appointment for your post-op check-up if it has not already been scheduled. * Additional information regarding activity, sexual intercourse and when to return to work will be given at this appointment. WE WISH YOU A SPEEDY RECOVERY! Current Hospital Diet Patient's current hospital diet: Regular Diet Discharge Diet Recommended Diet: Regular Diet Procedures Procedures Performed: Repair of vaginal cuff Pending Studies Studies pending at discharge: no Medical Emergencies . Who to Call and When: Medical Emergencies: If at any time you feel your situation is an emergency, please call 911 immediately. . Non-Emergent Contact Non-Emergency issues call your: Hospital Admissions Officer . . "Provider Documentation" section prepared by Rubina Trinh. . VTE Core Measure Inpt VTE Proph given/why not?: Warfarin (Coumadin) [place] Drug Monitoring Program Search Results: patient reviewed within database, no issues identified
[2017-08-10] MEDS ORDERED: METR500T PO (07:43)
[2017-08-10] MEDS ORDERED: AMOX500T PO (07:45)
[2017-08-10 08:00] VITALS: BP 118/51; PULSE 68; TEMP 36.8; O2SAT 99
[2017-08-10] MEDS: DOCUSATE SODIUM 100 MG CAP PO SCH (09:00)
--- NOTE | 2017-08-10 09:38 | Medical Consult ---
Consultation Date of Consultation: Aug 10, 2017. Attending Physician: Rubina Trinh M.D. History of Present Illness Jessica began to have vaginal bleeding on Wednesday which was about two weeks after her initial hysterectomy. She had blake bleeding with clots. She did visit the ED Wednesday and was sent home to monitor. Wednesday morning she was continuing to bleed heavily and became dizzy so she reported back to the ED and was admitted. She received a total of two units of PRBCs. She had a vaginal cuff repair 08/09. She continues to have pain and has needed Percocet and Demerol to control pain. She is a little dizzy when she stands. She is eating and drinking well this morning. ROS Constitutional: no chills, aches, sweats or fever Respiratory: no sob,cough, sputum, or wheezing Cardiac: no chest pain, palpitations, edema, orthopnea GI: no abdominal pain, nausea, vomiting, diarrhea or constipation : no dysuria or hesitancy Extremities: no joint pain or weakness Skin: no rash All other systems reviewed and negative She has a history of PE in right lung 5 years ago while on control pills on chronic anticoag with coumadin, COPD/asthma, eosinophilic lung disease, chronic back pain, hernia repair, clavicle removed on the left, cholecystectomy Past Medical/Surgical History Medical Problems: (1) Acute asthma exacerbation Status: Acute (2) Acute bronchitis Status: Acute (3) Anxiety reaction Status: Acute (4) Asthma with exacerbation Status: Acute (5) Exacerbation of asthma Status: Acute (6) Pedal edema Status: Acute (7) Post-operative hemorrhage Status: Acute (8) Status asthmaticus Status: Acute (9) Symptomatic anemia Status: Acute (10) Vaginal bleeding Status: Acute Family History Diabetes mellitus FH ischemic heart disease Social History Smoking Status: Former Smoker (quit 20 years ago) Smokeless Tobacco Use: No Alcohol Use: wine or liquor mostly weekends Marital Status: Housing Status: lives with family Occupation Status: employed Allergies Coded Allergies: Adhesives (Verified Allergy, Intermediate, TAPE- SEVERE ITCHING, 08/09/17) Chlorhexidine (Verified Allergy, Intermediate, ITCHING, 08/09/17) Clarithromycin (Verified Adverse Reaction, Intermediate, NAUSEA, 08/09/17) Clindamycin (Verified Adverse Reaction, Mild, NAUSEA, 08/09/17) Tramadol (Verified Adverse Reaction, Mild, dizziness,SYNCOPE, 08/09/17) Current Inpatient Medications Current Inpatient Medications Medications (Trade) Dose Ordered Sig/Johnathan Route Start Time Stop Time Status Last Admin Dose Admin Lactated Ringer's 1,000 ml @ 125 mls/hr Q8H IV 08/09/17 17:26 09/08/17 17:25 Acetaminophen (Tylenol Tab) 650 mg Q6H PRN PO 08/09/17 17:30 09/08/17 17:29 Ketorolac Tromethamine (Toradol Inj) 30 mg Q6H PRN IV. 08/09/17 17:30 08/14/17 17:29 08/09/17 20:52 30 MG Meperidine HCl (Demerol Inj) 50 mg Q4H PRN IV 08/09/17 17:30 08/23/17 17:29 08/10/17 01:35 50 MG Meperidine HCl (Demerol Inj) 75 mg Q4H PRN IV 08/09/17 17:30 08/23/17 17:29 Oxycodone/ Acetaminophen (Percocet 5-325mg Tab) 1 tab Q4H PRN PO 08/09/17 17:30 08/23/17 17:29 Oxycodone/ Acetaminophen (Percocet 5-325mg Tab) 2 tab Q4H PRN PO 08/09/17 17:30 08/23/17 17:29 08/10/17 07:27 2 TAB Ibuprofen (Motrin Tab) 600 mg Q6H PRN PO 08/09/17 17:30 09/08/17 17:29 Promethazine HCl 12.5 mg/Sodium Chloride 50.5 ml @ 200 mls/hr Q4H PRN IV 08/09/17 17:30 09/08/17 17:29 Promethazine HCl 25 mg/Sodium Chloride 51 ml @ 200 mls/hr Q4H PRN IV 08/09/17 17:30 09/08/17 17:29 Ondansetron HCl (Zofran Inj) 4 mg Q6H PRN IV 08/09/17 17:30 09/08/17 17:29 08/10/17 01:35 4 MG Bisacodyl (Dulcolax Supp) 10 mg DAILY PRN TX 08/09/17 17:30 09/08/17 17:29 Docusate Sodium (coLACE CAP) 100 mg BID PO 08/09/17 21:00 09/08/17 20:59 Magnesium Hydroxide (Milk Of Magnesia Susp) 30 ml HS PRN PO 08/09/17 17:30 09/08/17 17:29 Metronidazole 500 mg/Prmx 100 ml @ 100 mls/hr Q8H IV 08/09/17 20:00 08/10/17 19:59 08/10/17 04:24 100 MLS/HR Cefazolin Sodium 2000 mg/Syringe 10 ml @ 2.5 mls/min Q8H IV 08/09/17 22:00 08/10/17 21:59 08/10/17 06:02 2.5 MLS/MIN Physical Exam Date Time Temp Pulse Resp B/P (MAP) Pulse Ox O2 Delivery O2 Flow Rate FiO2 08/10/17 03:25 36.9 67 18 103/53 (70) 97 Room Air 08/09/17 23:30 36.8 72 18 102/55 (71) 99 Room Air 08/09/17 23:30 99 Room Air 08/09/17 20:30 74 18 108/48 (68) 99 Room Air 08/09/17 19:30 88 18 118/70 (86) 98 Room Air 08/09/17 19:00 83 18 116/63 (80) 100 Room Air 08/09/17 18:30 98 Room Air 08/09/17 18:30 37.3 92 18 111/66 98 Room Air 08/09/17 18:20 36.9 88 16 136/86 99 Nasal Cannula 3 08/09/17 18:10 36.9 92 16 120/75 100 Nasal Cannula 3 08/09/17 18:00 90 16 159/87 100 Nasal Cannula 3 08/09/17 17:50 95 16 136/89 100 Nasal Cannula 3 08/09/17 17:40 37 99 16 129/78 100 Nasal Cannula 3 08/09/17 15:38 16 90/66 97 Room Air 08/09/17 15:37 90/66 08/09/17 15:16 37.0 100 16 97/60 97 Room Air 08/09/17 14:29 92 20 106/67 95 08/09/17 13:44 86 16 115/65 98 Room Air 1/1/18 12:32 94 90/60 100 103/61 112 88/65 08/09/17 10:18 36.4 101 18 147/82 98 Room Air General: no distress Eyes: normal inspection, PERLL Respiratory: chest non tender, clear to auscultation, normal breath sounds, no respiratory distress, no accessory muscle use Cardiac: regular rate and rhythm, no rub or gallop, no murmur, no edema, no jvd GI/: active bowel sounds, no abd pain or tenderness, soft, non distended Extremities: normal range of motion, normal strength, non tender Neuro/Psych: alert and oriented x 3, normal mood and affect Skin: normal color, dry, lap appe sites healing Laboratory Results Last 24 Hours Test 08/09/17 12:51 08/10/17 05:50 White Blood Count 12.81 K/uL 18.11 K/uL Red Blood Count 2.70 M/uL 3.02 M/uL Hemoglobin 7.4 g/dL 8.7 g/dL Hematocrit 22.9 % 26.0 % Mean Corpuscular Volume 84.8 fL 86.1 fL Mean Corpuscular Hemoglobin 27.4 pg 28.8 pg Mean Corpuscular Hemoglobin Concent 32.3 g/dl 33.5 g/dl Platelet Count 412 K/uL 328 K/uL Mean Platelet Volume 9.5 fL 9.3 fL Neutrophils (%) (Auto) 73.8 % 86.9 % Lymphocytes (%) (Auto) 19.1 % 9.6 % Monocytes (%) (Auto) 4.4 % 2.2 % Eosinophils (%) (Auto) 1.8 % 0.0 % Basophils (%) (Auto) 0.2 % 0.1 % Neutrophils # (Auto) 9.45 K/uL 15.77 K/uL Lymphocytes # (Auto) 2.45 K/uL 1.73 K/uL Monocytes # (Auto) 0.56 K/uL 0.39 K/uL Eosinophils # (Auto) 0.23 K/uL 0.00 K/uL Basophils # (Auto) 0.03 K/uL 0.01 K/uL RDW Standard Deviation 47.0 fL 48.3 fL RDW Coefficient of Variation 15.4 % 15.4 % Immature Granulocyte % (Auto) 0.7 % 1.2 % Immature Granulocyte # (Auto) 0.09 K/uL 0.21 K/uL Red Blood Cell Morphology Unremarkable Prothrombin Time 16.1 SECONDS Prothromb Time International Ratio 1.5 Activated Partial Thromboplast Time 34.1 SECONDS Partial Thromboplastin Ratio 1.3 Sodium Level 138 mmol/L 137 mmol/L Potassium Level 4.3 mmol/L 4.3 mmol/L Chloride Level 106 mmol/L 107 mmol/L Carbon Dioxide Level 27 mmol/L 24 mmol/L Anion Gap 5.0 mmol/L 6.0 mmol/L Blood Urea Nitrogen 9 mg/dl 7 mg/dl Creatinine 0.57 mg/dl 0.64 mg/dl Estimated GFR () 130.7 125.8 Estimated GFR (Non- 112.7 108.5 BUN/Creatinine Ratio 16.2 10.9 Random Glucose 113 mg/dl 133 mg/dl Calcium Level 7.9 mg/dl 7.9 mg/dl Nucleated RBC Absolute Count (auto) 0.04 K/uL Nucleated Red Blood Cells % 0.2 % Est Creatinine Clear Calc Drug Dose 179.1 ml/min Assessment & Plan She has a history of PE in right lung 5 years ago while on control pills on chronic anticoag with coumadin, COPD/asthma, eosinophilic lung disease, chronic back pain, hernia repair, clavicle removed on the left, cholecystectomy Post op day 1 vaginal cuff repair - monitor for blood loss - pain control per primary team History of PE on chronic Coumadin - patient is not at particularly high risk given that her PE was five years ago and in the setting of BCP - she may even be able to come off of the coumadin given that it was only one incident and possibly provoke by the control - she should discuss with Dr. Chu - would have her restart her Coumadin at her previous dose of 10 mg daily on 08/16 which gives her a week out from surgery - She should have her INR drawn the morning of 08/[address] Pro Segura COPD - continue home inhalers and nebulizer Chronic back pain - would hold off on restarting Aleve for at least a week - She can take Tylenol 1000 mg tid I agree with LIQUOR TESTER assessment and plan and have seen and examined pt myself VSS Labs reviewed Resting comfortably in bed Hg stable, hemodynamically stable, no worsening bleeding Instructed pt to be off coumadin till 08/16 Will need to f/u with Dr العراقي regarding whether its needed to cont AC Additional Copies To Rubina Trinh M.D.
[2017-08-10 13:00] VITALS: BP 118/51; PULSE 68; TEMP 36.8; O2SAT 99
--- NOTE | 2017-08-11 06:37 | DISCHARGE SUMMARY ---
Jessica was admitted on August 09 with vaginal cuff bleeding 2 weeks after hysterectomy. This was repaired in the OR. She additionally received 2 units of blood during her course in the hospital. The patient had come in with heavy bleeding 2 days prior to admission and then this persisted and worsened despite treatment in the ER and thus she was taken to the OR and the cuff was repaired vaginally and was packed. Her course in hospital was uncomplicated overnight, the packing stayed in place and it was removed in the morning. At that time, there was no vaginal bleeding. The patient subjectively was doing well. She had no extremity pain, no shortness of breath, noticed no vaginal bleeding and was able to ambulate. She was tolerating an oral diet. PHYSICAL EXAMINATION: VITAL SIGNS: Stable. She was afebrile. CHEST: Clear. CARDIOVASCULAR: Normal rate and rhythm. No audible murmur. ABDOMEN: Benign. GENITOURINARY: Vaginal exam revealed no obvious blood. EXTREMITIES: Negative. IMPRESSION AND PLAN: We did have the medical team review the patient as well as the patient had been on Coumadin due to her prior pulmonary embolus. Plans were made with the medical team and it was felt she was not at particularly high risk for pulmonary embolism per their notes. She was going to restart her Coumadin at her previous dose of 10 mg on August 16 which is a week from surgery. Followup was set up with Dr. العراقي her primary care as well.
== END 2017-08-10 13:00 | disposition home or self-care (01) | DRG 909 ==
LOC: C.EDB 10:14 → C.MS4N 15:11 → ENRESERV 16:59
PROVIDERS: ADMIT Obstetrics & Gynecology; ATTEND Obstetrics & Gynecology
PROC: 0UQ Female Reproductive System, Repair (ICD-10-PCS; principal; 2017-08-09 16:00)
DX: N99.820 Postprocedural hemorrhage of a genitourinary system organ or structure following a genitourinary system procedure (principal); F41.9 Anxiety disorder, unspecified; J45.909 Unspecified asthma, uncomplicated; J44.9 Chronic obstructive pulmonary disease, unspecified; D64.9 Anemia, unspecified; G89.29 Other chronic pain; M54.9 Dorsalgia, unspecified; Z87.891 Personal history of nicotine dependence; Z79.01 Long term (current) use of anticoagulants; Z86.711 Personal history of pulmonary embolism; Z90.710 Acquired absence of both cervix and uterus; Z90.49 Acquired absence of other specified parts of digestive tract

== ENCOUNTER → 2017-10-21 | Outpatient (CLI) | payer OTHER ==
[~2017-10-21] MED LIST changes: +OPTIRAY 320 IV PRN
--- NOTE | 2017-10-21 16:47 | DIAGNOSTIC IMAGING REPORT ---
(CHEST FOR PE) ANGIO WITH CT DOSE: 870.75 mGy.cm HISTORY: 47 years-old Female with presents with acute shortness of breath. TECHNIQUE: Multiple CTA images of the chest were obtained after the intravenous administration of 91 ml Optiray 320. Coronal and sagittal MIPS were obtained from the axial data set and were submitted for review. A dose lowering technique was utilized adhering to the principles of ALARA. COMPARISON: CT abdomen and pelvis 08/09/2017, chest radiograph 07/09/2017, CTA chest 05/22/2017 FINDINGS: CTA: Heart is normal in size without pericardial effusion. The thoracic aorta appears to be normal in course and caliber without aneurysm or dissection. The imaged great vessels appear to be patent. The pulmonary arterial tree is opacified to level of the lobar branches with the segmental and subsegmental branches not well opacified secondary to contrast bolus timing. No focal filling defects identified to suggest pulmonary thromboembolic disease. CT CHEST: Heterogeneous appearance of the thyroid without dominant thyroid nodule identified. No pathologic adenopathy about the chest. There is no pneumothorax, pleural effusion or focal airspace consolidation. Linear subsegmental bibasilar opacities suggest areas of atelectasis. There is moderate bronchial wall thickening the level of the bilateral lung bases. There is of mild mosaic attenuation are also seen bilaterally suggesting areas of air trapping. Evaluation of the lung bases is limited secondary to respiratory motion. Mild there is a mucous plugging within the bilateral lung bases. No suspicious pulmonary nodules or masses identified. The liver appears mildly enlarged. No acute abnormality of the imaged upper abdomen. The soft tissues are unremarkable. The bones appear intact. Multilevel endplate spurring about the spine. IMPRESSION: 1. The pulmonary arterial tree is opacified to level of the lobar branches with the segmental and subsegmental branches not well opacified secondary to contrast bolus timing. No focal filling defects identified to suggest pulmonary thromboembolic disease. 2. Moderate bilateral bronchial wall thickening with areas of bilateral multilobar mosaic attenuation throughout the lungs compatible with bronchitis with areas of air trapping and mild subsegmental bibasilar atelectasis. 3. No lobar airspace consolidations or adenopathy. The above report was generated using voice recognition software. It may contain grammatical, syntax or spelling errors. Electronically signed by: Chuck Dennis M.D. 10/21/2017 4:46 PM Dictated Date/Time: 10/21/2017 4:32 PM
== END | disposition home or self-care (01) ==
LOC: C.CTS 16:16
PROVIDERS: ATTEND Internal Medicine Pulmonary Disease
DX: I26.99 Other pulmonary embolism without acute cor pulmonale (principal)

== ENCOUNTER → 2017-10-28 | Outpatient (CLI) | payer OTHER ==
[~2017-10-28] MED LIST changes: -OPTIRAY 320 IV PRN
[2017-10-28 09:35] LABS: BASO % 0.4 %; BASO ABS # 0.03 K/uL (0-0.2); EOS % 3.2 %; EOS ABS # 0.25 K/uL (0-0.5); HEMATOCRIT 30.8 % (37-47); HEMOGLOBIN 9.3 g/dL (12.0-16.0); IG# 0.01 K/uL (0.00-0.02); LYMPH % 24.8 %; LYMPH ABS # 1.92 K/uL (1.2-3.4); MEAN CORPUSCULAR HEMOGLOBIN 21.7 pg (25-34); MEAN CORPUSCULAR HGB CONC 30.2 g/dl (32-36); MEAN PLATELET VOLUME 9.5 fL (7.4-10.4); MONO % 5.9 %; MONO ABS # 0.46 K/uL (0.11-0.59); NEUT % 65.6 %; NEUT ABS # 5.07 K/uL (1.4-6.5); PLATELET COUNT 490 K/uL (130-400); RED CELL DISTRIBUTION WIDTH CV 18.3 % (11.5-14.5); RED CELL DISTRIBUTION WIDTH SD 48.1 fL (36.4-46.3); WHITE BLOOD COUNT 7.74 K/uL (4.8-10.8)
[2017-10-28 10:02] LABS: ALBUMIN 3.7 gm/dl (3.4-5.0); ALKALINE PHOSPHATASE 86 U/L (45-117); ALT/SGPT 21 U/L (12-78); AST/SGOT 15 U/L (15-37); BLOOD UREA NITROGEN 13 mg/dl (7-18); CARBON DIOXIDE 27 mmol/L (21-32); CREATININE 0.55 mg/dl (0.60-1.20); GLUCOSE 99 mg/dl (70-99); POTASSIUM 3.5 mmol/L (3.5-5.1); SODIUM 136 mmol/L (136-145); TOTAL PROTEIN 7.9 gm/dl (6.4-8.2)
[2017-10-28 10:07] LABS: TRANSFERRIN 332 mg/dl (200-360)
== END | disposition home or self-care (01) ==
LOC: C.LAB 08:26
PROVIDERS: ATTEND Internal Medicine Pulmonary Disease
DX: I26.99 Other pulmonary embolism without acute cor pulmonale (principal)

== ENCOUNTER 2017-11-10 07:11 | Inpatient (IN) | payer OTHER ==
[~2017-11-10] VITALS: Ht 172.7 cm; Wt 160.4 kg
[2017-11-10] MEDS ORDERED: ASCO10003 PO (07:27)
[2017-11-10] MEDS ORDERED: ZOLP5TAB PO (07:27)
[2017-11-10] MEDS ORDERED: ONDANSETRON INJ 2 MG/ML 2 ML VIAL IV STA ×2 (07:57→17:15)
[2017-11-10] MEDS ORDERED: MoRPHine SULFATE 4 MG/ML 1 ML CARP\\VIAL IV STA (07:57)
[2017-11-10 08:09] LABS: HEMATOCRIT 33.2 % (37-47); HEMOGLOBIN 10.1 g/dL (12.0-16.0); MEAN CELL VOLUME 70.5 fL (80-100); MEAN CORPUSCULAR HEMOGLOBIN 21.4 pg (25-34); MEAN CORPUSCULAR HGB CONC 30.4 g/dl (32-36); MEAN PLATELET VOLUME 9.6 fL (7.4-10.4); PLATELET COUNT 521 K/uL (130-400); RED CELL DISTRIBUTION WIDTH CV 18.1 % (11.5-14.5); RED CELL DISTRIBUTION WIDTH SD 46.7 fL (36.4-46.3); WHITE BLOOD COUNT 18.37 K/uL (4.8-10.8)
--- NOTE | 2017-11-10 08:16 | DIAGNOSTIC IMAGING REPORT ---
CHEST ONE VIEW PORTABLE CLINICAL HISTORY: 47 years-old Female presenting with LUQ abd pain. TECHNIQUE: Portable upright AP view of the chest was obtained. COMPARISON: 07/09/2017. FINDINGS: Cardiac silhouette top normal in size. Mild prominence of pulmonary vasculature unchanged. Mildly low lung volumes. No focal opacity. No large effusion or pneumothorax. Osseous structures normal. The stomach appears distended with gas and ingested material. IMPRESSION: 1. Top normal cardiac size with questionable volume overload. No other convincing evidence of acute cardiopulmonary disease. 2. The stomach may be distended with gas and ingested material. Electronically signed by: Td Quiros M.D. 11/10/2017 8:14 AM Dictated Date/Time: 11/10/2017 8:13 AM
[2017-11-10 08:26] LABS: ALBUMIN 3.7 gm/dl (3.4-5.0); ALT/SGPT 562 U/L (12-78); BLOOD UREA NITROGEN 10 mg/dl (7-18); CALCIUM 9.3 mg/dl (8.5-10.1); CARBON DIOXIDE 27 mmol/L (21-32); CREATININE 0.66 mg/dl (0.60-1.20); GLUCOSE 134 mg/dl (70-99); LIPASE 144 U/L (73-393); POTASSIUM 3.8 mmol/L (3.5-5.1); SODIUM 137 mmol/L (136-145)
[2017-11-10 08:31] LABS: ALKALINE PHOSPHATASE 276 U/L (45-117); AST/SGOT 757 U/L (15-37); TOTAL PROTEIN 8.1 gm/dl (6.4-8.2)
[2017-11-10 08:34] LABS: BASO % 0.1 %; BASO ABS # 0.02 K/uL (0-0.2); EOS % 0.3 %; EOS ABS # 0.05 K/uL (0-0.5); IG# 0.03 K/uL (0.00-0.02); LYMPH ABS # 0.73 K/uL (1.2-3.4); MONO % 1.8 %; MONO ABS # 0.33 K/uL (0.11-0.59); NEUT % 93.6 %; NEUT ABS # 17.21 K/uL (1.4-6.5)
[2017-11-10 08:37] LABS: INR 2.5 (0.9-1.1); PTT PATIENT 41.3 SECONDS (21.0-31.0)
[2017-11-10] MEDS: ONDANSETRON INJ 2 MG/ML 2 ML VIAL IV PRN ×3 (09:24→19:30)
[2017-11-10] MEDS: MoRPHine SULFATE 4 MG/ML 1 ML CARP\\VIAL IV PRN ×4 (10:11→19:25)
[2017-11-10] MEDS ORDERED: OPTIRAY 320 IV PRN (12:15)
--- NOTE | 2017-11-10 12:30 | DIAGNOSTIC IMAGING REPORT ---
ABD/PELVIS IV AND ORAL CONT CLINICAL HISTORY: 47 years-old Female presenting with LUQ/epigastric pain, left-sided pain, nausea, belching. TECHNIQUE: Multidetector CT of the abdomen and pelvis was performed after the administration of oral and intravenous contrast. IV contrast: 118 mL of Optiray 320. A dose lowering technique was used consistent with the principles of ALARA (as low as reasonably achievable). COMPARISON: 08/09/2017. CT DOSE (mGy.cm): The estimated cumulative dose is 1098.14 mGycm. FINDINGS: Image quality is degraded by patient body habitus, which mildly limits diagnostic sensitivity the exam. [place] Machine Operator topogram: Unremarkable. Lung bases: Minimal basilar opacities, likely atelectasis. Normal heart size. No pericardial or pleural effusion. Liver: Normal morphology though mildly enlarged measuring slightly more than 18 cm in maximal sagittal dimension. No liver lesion. Patent hepatic vasculature. Biliary: Mild biliary ductal prominence likely a reservoir effect in the post cholecystectomy state. Gallbladder surgically absent. Pancreas: Mild parenchymal atrophy. Spleen: Normal. Adrenal glands: Normal. Kidneys and ureters: Normal. No hydronephrosis. Ureters poorly visualized. Bladder: Incompletely evaluated secondary to underdistention. Pelvic organs: Uterus surgically absent. Normal ovaries. Bowel: Normal appendix. No bowel obstruction. Peritoneal cavity: No free fluid or intraperitoneal gas. Lymph nodes: No enlarged lymph nodes in the abdomen or pelvis. Vasculature: Aorta and IVC patent and normal in caliber. Abdominal wall: Diastasis of the rectus abdominis. Possible small fat-containing ventral hernia in the supraumbilical region. No associated fluid or inflammatory change to suggest strangulation. Musculoskeletal: Normal. IMPRESSION: 1. No acute intra-abdominal pathology. 2. Mild hepatomegaly. 3. Small fat-containing ventral hernia in the supraumbilical region. 4. Postsurgical changes of hysterectomy. Electronically signed by: Td Quiros M.D. 11/10/2017 12:29 PM Dictated Date/Time: 11/10/2017 12:23 PM
[2017-11-10] MEDS ORDERED: PIPERACILLIN/TAZOBACTAM 4.5 GM/100ML D5W IV STA (13:31)
[2017-11-10] MEDS ORDERED: LEVAQUIN 500MG / 100ML D5W IV ONE (13:45)
--- NOTE | 2017-11-10 14:05 | DIAGNOSTIC IMAGING REPORT ---
GALLBLADDER-ABD LIMITED CLINICAL HISTORY: 47 years-old Female presenting with RUQ pain, possible CBD stone. TECHNIQUE: Real-time grayscale and limited color Doppler ultrasound imaging of the abdomen limited to the right upper quadrant was performed. COMPARISON: CT performed earlier the same day. FINDINGS: Pancreas: Visualized portions of the pancreatic head and body normal. Liver: Markedly hyperechogenic parenchyma with obscuration of the right hemidiaphragm, likely indicating marked hepatic steatosis. The liver measures 23 cm in maximal sagittal dimension. No sonographic evidence of hepatic mass. Main portal vein patent with normal directional flow. Biliary: No intrahepatic biliary ductal dilatation. Common bile duct measures up to 7-8 mm in diameter. Gallbladder: Surgically absent. Right kidney: Normal in appearance. No hydronephrosis. Ascites: None. Other: None. IMPRESSION: 1. Hepatic steatosis. Correlate with liver function tests to exclude steatohepatitis as a cause for abdominal pain. 2. Status post cholecystectomy. Mild prominence of the extra hepatic bile ducts likely a reservoir effect in the post cholecystectomy state. Electronically signed by: Td Quiros M.D. 11/10/2017 2:04 PM Dictated Date/Time: 11/10/2017 2:02 PM
--- NOTE | 2017-11-10 14:33 | EMERGENCY ROOM VISIT NOTE ---
History First contact with patient: 07:18 Chief Complaint: ABDOMINAL PAIN Stated Complaint: LEFT PAIN NAUSEA, BELCHING Nursing Triage Summary: pt reports left upper abd pain started yesterday has been pooping chalk like bm. has nausea and vomiting. pain radiates straight through to back. has hx of diverticulitis thinks that is what is wrong has been belching all night History of Present Illness The patient is a 47 year old female who presents to the Emergency Room with complaints of left upper quadrant and epigastric pain for the past few days. The patient reports that her stool also looks chalky and waxy in appearance. She is concerned that she has pancreatitis. The patient reports that she had her gallbladder removed approximately 4 years ago. She required readmission for a retained stone in her common bile duct. The patient reports that this pain feels the same. She has had nausea and vomiting as well. The patient reports a prior history of IBS that significantly improved in her 20s. She is status post appendectomy, hysterectomy and cholecystectomy. The patient currently rates her discomfort a 9 out of 10 with nausea. The patient reports that she has also felt chilled today. The patient previously was seen by [facility] and Dr. Davila, general surgeon who did her laparoscopic cholecystectomy. The patient is also currently on Coumadin secondary to history of pulmonary embolism. Review of Systems HEENT: Denies dizziness, visual problems, hearing loss, tinnitus. Denies difficulty swallowing or oral lesions. PULMONARY: Denies cough, shortness of breath, sputum production or hemoptysis. CARDIOVASCULAR: Denies chest pain, palpitations, dyspnea on exertion, orthopnea or peripheral edema. GASTROINTESTINAL: Denies diarrhea, constipation, nausea, vomiting, or abdominal pain. GENITOURINARY: Denies dysuria, frequency, urgency or nocturia. NEUROLOGIC: Denies history of epilepsy, CVA, TIA or chronic headaches. MUSCULOSKELETAL: Denies history of joint tenderness/swelling. SKIN: Denies rashes or lesions. PSYCHIATRIC: Denies history of depression or mental illness. ENDOCRINE: Denies history of diabetes, thyroid disorders, abnormal hair growth or sexual dysfunction. Past Medical/Surgical History Medical Problems: (1) Anxiety (2) Asthma (3) Chronic obstructive lung disease (4) COPD exacerbation (5) Hernia repair (6) Irritable colon (7) Menorrhagia with irregular cycle (8) Post-operative haemorrhage Surgical Problems: (1) H/O hernia repair (2) History of cholecystectomy Family History Diabetes mellitus FH ischemic heart disease Social History Smoking Status: Never Smoker Alcohol Use: occasionally Marital Status: Housing Status: lives with family Occupation Status: employed Current/Historical Medications Scheduled Alprazolam (Xanax), 2 MG PO HS Ascorbic Acid (Vitamin C), 1,000 MG PO DAILY Baclofen (Lioresal), 10 MG PO QPM Budesonide/Formoterol Fumarate (Symbicort 160/4.5 Inhaler ), 2 PUFFS INH BID Cyanocobalamin (Cyanocobalamin), 1,000 MCG SQ WK Ergocalciferol (Vitamin D 02526 Unit), 50,000 UNITS PO WK Fexofenadine Hcl (Susanne), 180 MG PO QAM Fluticasone Propionate (Nasal) (Flonase Allergy Relief), 1 SPRAYS MUKESH BID Montelukast Sodium (Singulair), 10 MG PO HS Naproxen (Aleve), 440 MG PO BID Omeprazole (Prilosec), 20 MG PO QAM Ranitidine Hcl (Zantac), 150 MG PO HS Tiotropium [place] (Spiriva Respimat), 1 PUFFS INH BID Warfarin Sodium (Coumadin), 10 MG PO UD Zolpidem Tartrate (Ambien), 7.5 MG PO HS Scheduled PRN Furosemide (Lasix), 20 MG PO DAILY PRN for SWELLING Hydrocodone/Acetaminophen 10MG/325MG ([employer] 10MG/325MG), 1 TAB PO Q6H PRN for Pain Ipratropium-Albuterol (Duoneb), 1 TREATMENT INH Q4 PRN for COPD Ipratropium-Albuterol (Combivent Respimat), 2 PUFFS INH Q2H PRN for SOB/Wheezing Physical Exam Vital Signs Date Time Temp Pulse Resp B/P (MAP) Pulse Ox O2 Delivery O2 Flow Rate FiO2 11/10/17 13:23 38.3 101 18 112/60 93 Room Air 11/10/17 12:40 102 20 141/73 94 Room Air 11/10/17 11:19 101 18 138/70 93 Room Air 11/10/17 10:48 100 18 147/72 95 Room Air 11/10/17 09:26 100 18 150/71 94 Room Air 11/10/17 08:20 96 20 145/76 96 Room Air 11/10/17 07:13 36.6 103 18 173/63 96 Room Air Physical Exam CONSTITUTIONAL: Morbidly obese female, alert and oriented X 3 with positive affect. Patient appears in moderate severe discomfort from pain and nausea. HEENT: Normocephalic, atraumatic. Pupils equal, round and reactive. No scleral icterus or conjunctival injection/pallor. NECK: Full active range of motion without discomfort. No JVD or carotid bruits. RESPIRATORY: Clear to auscultation bilaterally with no wheezing, crackles, rhonchi or stridor. The breathing does not cause any significant discomfort. CARDIOVASCULAR: Regular rate and rhythm with no murmurs, rubs or gallops. GASTROINTESTINAL: Bowel sounds present in all quadrants. Abdomen is protuberant but tender to palpation in the left upper quadrant and epigastric region. She does not have any significant right upper quadrant tenderness to palpation. No obvious hepatosplenomegaly. Negative CVA tenderness. MUSCULOSKELETAL: Full range of motion of all joints without discomfort. INTEGUMENTARY: No rash or other significant dermatologic conditions noted. HEMATOLOGIC: No ecchymosis or petechiae noted. NEUROLOGIC: No focal neurologic deficits noted. Medical Decision & Procedures ER Provider Diagnostic Interpretation: My interpretation of an ECG shows a normal sinus rhythm of [address] elevation or Q waves. A portable chest x-ray shows cardiac prominence and distended stomach. No pneumothorax or basilar lung consolidations noted. Radiologist report is as follows: CHEST ONE VIEW PORTABLE CLINICAL HISTORY: 47 years-old Female presenting with LUQ abd pain. TECHNIQUE: Portable upright AP view of the chest was obtained. COMPARISON: 07/09/2017. FINDINGS: Cardiac silhouette top normal in size. Mild prominence of pulmonary vasculature unchanged. Mildly low lung volumes. No focal opacity. No large effusion or pneumothorax. Osseous structures normal. The stomach appears distended with gas and ingested material. IMPRESSION: 1. Top normal cardiac size with questionable volume overload. No other convincing evidence of acute cardiopulmonary disease. 2. The stomach may be distended with gas and ingested material. Enhanced CT of the abdomen and pelvis does not show any convincing evidence for acute pancreatitis, obstruction or other acute findings. Radiologist report is as follows: ABD/PELVIS IV AND ORAL CONT CLINICAL HISTORY: 47 years-old Female presenting with LUQ/epigastric pain, left-sided pain, nausea, belching. TECHNIQUE: Multidetector CT of the abdomen and pelvis was performed after the administration of oral and intravenous contrast. IV contrast: 118 mL of Optiray 320. A dose lowering technique was used consistent with the principles of ALARA (as low as reasonably achievable). COMPARISON: 08/09/2017. CT DOSE (mGy.cm): The estimated cumulative dose is 1098.14 mGycm. FINDINGS: Image quality is degraded by patient body habitus, which mildly limits diagnostic sensitivity the exam. Traveling Clerk topogram: Unremarkable. Lung bases: Minimal basilar opacities, likely atelectasis. Normal heart size. No pericardial or pleural effusion. Liver: Normal morphology though mildly enlarged measuring slightly more than 18 cm in maximal sagittal dimension. No liver lesion. Patent hepatic vasculature. Biliary: Mild biliary ductal prominence likely a reservoir effect in the post cholecystectomy state. Gallbladder surgically absent. Pancreas: Mild parenchymal atrophy. Spleen: Normal. Adrenal glands: Normal. Kidneys and ureters: Normal. No hydronephrosis. Ureters poorly visualized. Bladder: Incompletely evaluated secondary to underdistention. Pelvic organs: Uterus surgically absent. Normal ovaries. Bowel: Normal appendix. No bowel obstruction. Peritoneal cavity: No free fluid or intraperitoneal gas. Lymph nodes: No enlarged lymph nodes in the abdomen or pelvis. Vasculature: Aorta and IVC patent and normal in caliber. Abdominal wall: Diastasis of the rectus abdominis. Possible small fat-containing ventral hernia in the supraumbilical region. No associated fluid or inflammatory change to suggest strangulation. Musculoskeletal: Normal. IMPRESSION: 1. No acute intra-abdominal pathology. 2. Mild hepatomegaly. 3. Small fat-containing ventral hernia in the supraumbilical region. 4. Postsurgical changes of hysterectomy. Right upper quadrant ultrasound shows significant hepatic steatosis. Radiologist report is as follows: GALLBLADDER-ABD LIMITED CLINICAL HISTORY: 47 years-old Female presenting with RUQ pain, possible CBD stone. TECHNIQUE: Real-time grayscale and limited color Doppler ultrasound imaging of the abdomen limited to the right upper quadrant was performed. COMPARISON: CT performed earlier the same day. FINDINGS: Pancreas: Visualized portions of the pancreatic head and body normal. Liver: Markedly hyperechogenic parenchyma with obscuration of the right hemidiaphragm, likely indicating marked hepatic steatosis. The liver measures 23 cm in maximal sagittal dimension. No sonographic evidence of hepatic mass. Main portal vein patent with normal directional flow. Biliary: No intrahepatic biliary ductal dilatation. Common bile duct measures up to 7-8 mm in diameter. Gallbladder: Surgically absent. Right kidney: Normal in appearance. No hydronephrosis. Ascites: None. Other: None. IMPRESSION: 1. Hepatic steatosis. Correlate with liver function tests to exclude steatohepatitis as a cause for abdominal pain. 2. Status post cholecystectomy. Mild prominence of the extra hepatic bile ducts likely a reservoir effect in the post cholecystectomy state. Laboratory Results 11/10/17 07:57 Red Blood Count 4.71, Mean Corpuscular Volume 70.5, Mean Corpuscular Hemoglobin 21.4, Mean Corpuscular Hemoglobin Concent 30.4, Mean Platelet Volume 9.6, Neutrophils (%) (Auto) 93.6, Lymphocytes (%) (Auto) 4.0, Monocytes (%) (Auto) 1.8, Eosinophils (%) (Auto) 0.3, Basophils (%) (Auto) 0.1, Neutrophils # (Auto) 17.21, Lymphocytes # (Auto) 0.73, Monocytes # (Auto) 0.33, Eosinophils # (Auto) 0.05, Basophils # (Auto) 0.02 11/10/17 07:57 Test 11/10/17 07:57 11/10/17 12:40 White Blood Count 18.37 K/uL (4.8-10.8) Red Blood Count 4.71 M/uL (4.2-5.4) Hemoglobin 10.1 g/dL (12.0-16.0) Hematocrit 33.2 % (37-47) Mean Corpuscular Volume 70.5 fL (80-100) Mean Corpuscular Hemoglobin 21.4 pg (25-34) Mean Corpuscular Hemoglobin Concent 30.4 g/dl (32-36) Platelet Count 521 K/uL (130-400) Mean Platelet Volume 9.6 fL (7.4-10.4) Neutrophils (%) (Auto) 93.6 % Lymphocytes (%) (Auto) 4.0 % Monocytes (%) (Auto) 1.8 % Eosinophils (%) (Auto) 0.3 % Basophils (%) (Auto) 0.1 % Neutrophils # (Auto) 17.21 K/uL (1.4-6.5) Lymphocytes # (Auto) 0.73 K/uL (1.2-3.4) Monocytes # (Auto) 0.33 K/uL (0.11-0.59) Eosinophils # (Auto) 0.05 K/uL (0-0.5) Basophils # (Auto) 0.02 K/uL (0-0.2) RDW Standard Deviation 46.7 fL (36.4-46.3) RDW Coefficient of Variation 18.1 % (11.5-14.5) Immature Granulocyte % (Auto) 0.2 % Immature Granulocyte # (Auto) 0.03 K/uL (0.00-0.02) Hypochromasia PRESENT Microcytosis PRESENT Prothrombin Time 26.1 SECONDS (9.0-12.0) Prothromb Time International Ratio 2.5 (0.9-1.1) Activated Partial Thromboplast Time 41.3 SECONDS (21.0-31.0) Partial Thromboplastin Ratio 1.6 D-Dimer 490 ug/L FEU (0-500) Anion Gap 8.0 mmol/L (3-11) Est Creatinine Clear Calc Drug Dose 170.1 ml/min Estimated GFR () 123.6 Estimated GFR (Non- 106.7 BUN/Creatinine Ratio 15.6 (10-20) Calcium Level 9.3 mg/dl (8.5-10.1) Total Bilirubin 2.3 mg/dl (0.2-1) Direct Bilirubin 1.6 mg/dl (0-0.2) Aspartate Amino Transf (AST/SGOT) 757 U/L (15-37) Alanine Aminotransferase (ALT/SGPT) 562 U/L (12-78) Alkaline Phosphatase 276 U/L (45-117) Total Creatine Kinase 81 U/L (26-192) Troponin I < 0.015 ng/ml (0-0.045) Pro-B-Type Natriuretic Peptide 115 pg/ml (0-450) Total Protein 8.1 gm/dl (6.4-8.2) Albumin 3.7 gm/dl (3.4-5.0) Lipase 144 U/L (73-393) Urine Color DK YELLOW Urine Appearance CLEAR (CLEAR) Urine pH 6.0 (4.5-7.5) Urine Specific [place] > 1.045 (1.000-1.030) Urine Protein NEG (NEG) Urine Glucose (UA) NEG (NEG) Urine Ketones NEG (NEG) Urine Occult Blood 2+ (NEG) Urine Nitrite POS (NEG) Urine Bilirubin 2+ (NEG) Urine Urobilinogen NEG (NEG) Urine Leukocyte Esterase TRACE (NEG) Urine WBC (Auto) 1-5 /hpf (0-5) Urine RBC (Auto) 5-10 /hpf (0-4) Urine Hyaline Casts (Auto) 1-5 /lpf (0-5) Urine Epithelial Cells (Auto) >30 /lpf (0-5) Urine Bacteria (Auto) NEG (NEG) The above labs were reviewed. The patient has a markedly leukocytosis with left shift and bandemia. LFTs, alkaline phosphatase, total and direct bilirubin are all markedly elevated as well. Urinalysis shows a contaminated sample; however, there is acute hematuria, nitrites and leukocyte esterase noted. Urine cultures are pending. INR is therapeutic. Troponin and d-dimer are normal. Medications Administered Medications (Trade) Dose Ordered Sig/Johnathan Route Start Time Stop Time Status Last Admin Dose Admin Morphine Sulfate (MoRPHine SULFATE INJ) 4 mg NOW STAT IV 11/10/17 07:57 11/10/17 08:00 DC 11/10/17 08:04 4 MG Ondansetron HCl (Zofran Inj) 4 mg NOW STAT IV 11/10/17 07:57 11/10/17 08:00 DC 11/10/17 08:03 4 MG Morphine Sulfate (MoRPHine SULFATE INJ) 4 mg Q30M PRN IV 11/10/17 08:45 11/24/17 08:44 11/10/17 13:29 4 MG Ondansetron HCl (Zofran Inj) 4 mg Q30M PRN IV 11/10/17 08:45 12/10/17 08:44 11/10/17 09:24 4 MG Piperacillin Sod/ Tazobactam Sod (Zosyn Iv) 4.5 gm NOW STAT IV 11/10/17 13:31 11/10/17 13:34 DC 11/10/17 14:07 4.5 GM ED Course Patient history and physical exam were performed. Nurse's notes were reviewed. Vital signs were reviewed, showing an elevated blood pressure of 173/63. Pulse rate is 103 with a normal temperature of 36.6C. O2 saturation on room air was also normal. I did review prior medical records, including the patient' s operative note from 11/29/12 for the patient underwent an uneventful laparoscopic cholecystectomy. She was back again in 6 days with complaint of abdominal pain and jaundice. ERCP was performed by Dr. Kothari to show a common bile duct stone. Other significant history includes a pulmonary embolus noted in March 2014, at which time the patient was started on Coumadin and continues with Coumadin treatment. IV access was established, and labs were drawn. The patient was hydrated with normal saline, and received IV morphine and Zofran for initial pain and nausea relief. This provided significant relief of her symptoms. I did suggest performing an enhanced CT of the abdomen and pelvis given her prior medical and surgical histories. Review of initial labs shows a white count of over 18,000 with left shift and bandemia. She also had markedly elevated LFTs, alkaline phosphatase and bilirubin levels. Lipase was normal. The patient was administered additional morphine for persistent pain. The patient was able to tolerate her oral contrast. Enhanced CT of the abdomen and pelvis did not show any significant findings. Vital signs were reviewed up to this point and continued to remain normal, however the patient was reporting feeling hot and flushed. I initially suspected that this was secondary to IV contrast. At this point, I discussed the case further with Dr. Georges, ED attending physician who suggested discussing the case further with GI. I then spoke with FE Ríos who requested an ultrasound study of the right upper quadrant. As this was being ordered, I was advised by the patient's nurse that the patient actually had a fever of 38.3C. At this point, the patient was ordered IV vancomycin and Zosyn. The case was then further discussed with Dr. Hernandez, [facility] hospitalist service, also advising him that [facility] would be down to evaluate the patient as well. The patient did require an additional dose of IV morphine for her pain. Ultrasound studies did show significant hepatic steatosis. No obvious CBD stones were appreciated on radiology report. Medical Decision Patient presents to emergency department with complaint of left upper quadrant and epigastric pain. The patient reports that this pain feels similar to what she has experienced before in the past with pancreatitis. Her workup today is not suggestive of pancreatitis. I am concerned for a recurrent common bile duct stone as the patient does have a markedly elevated liver transaminases, bilirubin and alkaline phosphatase. Her lipase is normal, therefore I do not suspect acute pancreatitis. Imaging studies currently do not show any evidence for bowel obstruction, diverticulitis, pneumonia or pneumothorax. Her cardiac workup is also normal with a normal ECG, troponin and d-dimer. Medication Reconcilliation Current Medication List: was personally reviewed by me Blood Pressure Screening Patient's blood pressure: Elevated blood pressure Blood pressure disposition: Elevated BP felt to be situational Impression Primary Impression: Intractable left upper quadrant abdominal pain Additional Impressions: History common bile duct stone Status post laparoscopic cholecystectomy Departure Information Referrals Pro,Ramon Mcguire M.D. (PCP) Patient Instructions My [facility] Problem Qualifiers
[2017-11-10] MEDS ORDERED: ALBUT/IPRATROP 3MG/0.5MG NEB 3 ML VIAL INH PRN (15:00)
[2017-11-10] MEDS ORDERED: PIPERACILL/TAZOBAC CONSULT ACTIVE PRN (15:00)
[2017-11-10] MEDS ORDERED: PIPERACILL/TAZOBAC IV 4.5 GM in DEXTROSE 5% 100ML 100 ML IV SCH (15:00)
[2017-11-10 15:04] VITALS: O2SAT 94; Ht 172.7 cm; Wt 160.4 kg
--- NOTE | 2017-11-10 15:04 | History and Physical ---
History & Physical Date & Time of Service: Nov 10, 2017 at 13:54 Chief Complaint: Left Pain Nausea, Belching Primary Care Physician: Ramon العراقي M.D. History of Present Illness Ms. Sheppard has felt intermittent belly pain for the past few weeks. she had a meatloaf meal and felt pain in upper left abdomen extending to shoulder blades which has persisted. Tums helped somewhat. Last night she ate salad and steak and potato and shortly there after she experienced the same pain. She was having lots of belching and at 4 this morning it became overwhelming and she arrived at the hospital at 6:00. Her stools are white and waxy. She started vomiting today. She has had chills and sweats. Her urine is dark brown. She is short of breath today but feels that's due to rain. She has been able to keep fluids down. She has had a cholecystectomy in 2013 and pancreatitis due to stone and had an ERCP. ROS Constitutional: no chills, aches, sweats or fever Respiratory: no sob,cough, sputum, or wheezing Cardiac: no chest pain, palpitations, edema, orthopnea or lightheadedness GI: no abdominal pain, nausea, vomiting, diarrhea or constipation : no dysuria or hesitancy Extremities: no joint pain or weakness Skin: no rash All other systems reviewed and negative She has a history of PE in right lung 5 years ago while on control pills on chronic anticoag with coumadin, COPD/asthma, eosinophilic lung disease, chronic back pain, hernia repair, clavicle removed on the left, cholecystectomy , hysterectomy Past Medical/Surgical History Medical Problems: (1) Acute asthma exacerbation (2) Acute asthma exacerbation (3) Acute bronchitis (4) Acute respiratory distress (5) Anxiety (6) Anxiety (7) Anxiety reaction (8) Asthma (9) Asthma exacerbation (10) Asthma with exacerbation (11) Asthma with exacerbation (12) Back pain (13) Back pain (14) Back pain (15) Bacterial conjunctivitis of right eye (16) Chronic obstructive lung disease (17) Contusion of knee, right (18) COPD exacerbation (19) Exacerbation of asthma (20) Exacerbation of asthma (21) Failure of outpatient treatment (22) H/O dysfunctional uterine bleeding (23) Hernia repair (24) Irritable colon (25) Menorrhagia with irregular cycle (26) Pedal edema (27) Pneumonia (28) Post-operative haemorrhage (29) Post-operative hemorrhage (30) Pulmonary embolism (31) S/P bronchial thermoplasty (32) Shortness of breath (33) Shortness of breath (34) Shortness of breath (35) SIRS (systemic inflammatory response syndrome) (36) Status asthmaticus (37) Subtherapeutic international normalized ratio (INR) (38) Symptomatic anemia (39) Vaginal bleeding Surgical Problems: (1) H/O hernia repair (2) History of cholecystectomy Family History Family history was reviewed; no changes noted. Social History Smoking Status: Never Smoker Marital Status: Housing status: lives with family Occupational Status: employed Immunizations History of Influenza Vaccine: Yes Influenza Vaccine Date: Jun 06, 2012 History of Tetanus Vaccine?: Yes Tetanus Immunization Date: Dec 06, 2007 History of Pneumococcal: No History of Hepatitis B Vaccine: Yes Hepatitis Immunization Date: Dec 06, 2007 Allergies Coded Allergies: Adhesives (Verified Allergy, Intermediate, TAPE- SEVERE ITCHING, 11/10/17) Chlorhexidine (Verified Allergy, Intermediate, ITCHING, 11/10/17) Clarithromycin (Verified Adverse Reaction, Intermediate, NAUSEA, 11/10/17) Clindamycin (Verified Adverse Reaction, Mild, NAUSEA, 11/10/17) Tramadol (Verified Adverse Reaction, Mild, dizziness,SYNCOPE, 11/10/17) Home Medications Scheduled Alprazolam (Xanax), 2 MG PO HS Ascorbic Acid (Vitamin C), 1,000 MG PO DAILY Baclofen (Lioresal), 10 MG PO QPM Budesonide/Formoterol Fumarate (Symbicort 160/4.5 Inhaler ), 2 PUFFS INH BID Cyanocobalamin (Cyanocobalamin), 1,000 MCG SQ WK Ergocalciferol (Vitamin D 04738 Unit), 50,000 UNITS PO WK Fexofenadine Hcl (Susanne), 180 MG PO QAM Fluticasone Propionate (Nasal) (Flonase Allergy Relief), 1 SPRAYS MUKESH BID Montelukast Sodium (Singulair), 10 MG PO HS Naproxen (Aleve), 440 MG PO BID Omeprazole (Prilosec), 20 MG PO QAM Ranitidine Hcl (Zantac), 150 MG PO HS Tiotropium [place] (Spiriva Respimat), 1 PUFFS INH BID Warfarin Sodium (Coumadin), 10 MG PO UD Zolpidem Tartrate (Ambien), 7.5 MG PO HS Scheduled PRN Furosemide (Lasix), 20 MG PO DAILY PRN for SWELLING Hydrocodone/Acetaminophen 10MG/325MG ([place] 10MG/325MG), 1 TAB PO Q6H PRN for Pain Ipratropium-Albuterol (Duoneb), 1 TREATMENT INH Q4 PRN for COPD Ipratropium-Albuterol (Combivent Respimat), 2 PUFFS INH Q2H PRN for SOB/Wheezing Physical Exam Vital Signs Date Time Temp Pulse Resp B/P (MAP) Pulse Ox O2 Delivery O2 Flow Rate FiO2 11/10/17 13:23 38.3 101 18 112/60 93 Room Air 11/10/17 12:40 102 20 141/73 94 Room Air 11/10/17 11:19 101 18 138/70 93 Room Air 11/10/17 10:48 100 18 147/72 95 Room Air 11/10/17 09:26 100 18 150/71 94 Room Air 11/10/17 08:20 96 20 145/76 96 Room Air 11/10/17 07:13 36.6 103 18 173/63 96 Room Air General: unwell appearing Eyes: normal inspection, PERLL Respiratory: chest non tender, clear to auscultation, normal breath sounds, no respiratory distress, no accessory muscle use Cardiac: regular rate and rhythm, no rub or gallop, no murmur, no edema, GI/: active bowel sounds, left upper quadrant tender to palpation, soft, non distended Extremities: normal range of motion, normal strength, non tender Neuro/Psych: alert and oriented x 3, normal mood and affect Skin: flushed skin, dry Diagnostics Laboratory Results Results Past 24 Hours Test 11/10/17 07:57 11/10/17 12:40 Range/Units White Blood Count 18.37 4.8-10.8 K/uL Red Blood Count 4.71 4.2-5.4 M/uL Hemoglobin 10.1 12.0-16.0 g/dL Hematocrit 33.2 37-47 % Mean Corpuscular Volume 70.5 80-100 fL Mean Corpuscular Hemoglobin 21.4 25-34 pg Mean Corpuscular Hemoglobin Concent 30.4 32-36 g/dl Platelet Count 521 130-400 K/uL Mean Platelet Volume 9.6 7.4-10.4 fL Neutrophils (%) (Auto) 93.6 % Lymphocytes (%) (Auto) 4.0 % Monocytes (%) (Auto) 1.8 % Eosinophils (%) (Auto) 0.3 % Basophils (%) (Auto) 0.1 % Neutrophils # (Auto) 17.21 1.4-6.5 K/uL Lymphocytes # (Auto) 0.73 1.2-3.4 K/uL Monocytes # (Auto) 0.33 0.11-0.59 K/uL Eosinophils # (Auto) 0.05 0-0.5 K/uL Basophils # (Auto) 0.02 0-0.2 K/uL RDW Standard Deviation 46.7 36.4-46.3 fL RDW Coefficient of Variation 18.1 11.5-14.5 % Immature Granulocyte % (Auto) 0.2 % Immature Granulocyte # (Auto) 0.03 0.00-0.02 K/uL Hypochromasia PRESENT Microcytosis PRESENT Prothrombin Time 26.1 9.0-12.0 SECONDS Prothromb Time International Ratio 2.5 0.9-1.1 Activated Partial Thromboplast Time 41.3 21.0-31.0 SECONDS Partial Thromboplastin Ratio 1.6 D-Dimer 490 0-500 ug/L FEU Sodium Level 137 136-145 mmol/L Potassium Level 3.8 3.5-5.1 mmol/L Chloride Level 102 98-107 mmol/L Carbon Dioxide Level 27 21-32 mmol/L Anion Gap 8.0 3-11 mmol/L Blood Urea Nitrogen 10 7-18 mg/dl Creatinine 0.66 0.60-1.20 mg/dl Est Creatinine Clear Calc Drug Dose 170.1 ml/min Estimated GFR () 123.6 Estimated GFR (Non- 106.7 BUN/Creatinine Ratio 15.6 10-20 Random Glucose 134 70-99 mg/dl Calcium Level 9.3 8.5-10.1 mg/dl Total Bilirubin 2.3 0.2-1 mg/dl Direct Bilirubin 1.6 0-0.2 mg/dl Aspartate Amino Transf (AST/SGOT) 757 15-37 U/L Alanine Aminotransferase (ALT/SGPT) 562 12-78 U/L Alkaline Phosphatase 276 45-117 U/L Total Creatine Kinase 81 26-192 U/L Troponin I < 0.015 0-0.045 ng/ml Pro-B-Type Natriuretic Peptide 115 0-450 pg/ml Total Protein 8.1 6.4-8.2 gm/dl Albumin 3.7 3.4-5.0 gm/dl Lipase 144 73-393 U/L Urine Color DK YELLOW Urine Appearance CLEAR CLEAR Urine pH 6.0 4.5-7.5 Urine Specific [place] > 1.045 1.000-1.030 Urine Protein NEG NEG Urine Glucose (UA) NEG NEG Urine Ketones NEG NEG Urine Occult Blood 2+ NEG Urine Nitrite POS NEG Urine Bilirubin 2+ NEG Urine Urobilinogen NEG NEG Urine Leukocyte Esterase TRACE NEG Urine WBC (Auto) 1-5 0-5 /hpf Urine RBC (Auto) 5-10 0-4 /hpf Urine Hyaline Casts (Auto) 1-5 0-5 /lpf Urine Epithelial Cells (Auto) >30 0-5 /lpf Urine Bacteria (Auto) NEG NEG Diagnostic Radiology ABD/PELVIS IV AND ORAL CONT CLINICAL HISTORY: 47 years-old Female presenting with LUQ/epigastric pain, left-sided pain, nausea, belching. TECHNIQUE: Multidetector CT of the abdomen and pelvis was performed after the administration of oral and intravenous contrast. IV contrast: 118 mL of Optiray 320. A dose lowering technique was used consistent with the principles of ALARA (as low as reasonably achievable). COMPARISON: 08/09/2017. CT DOSE (mGy.cm): The estimated cumulative dose is 1098.14 mGycm. FINDINGS: Image quality is degraded by patient body habitus, which mildly limits diagnostic sensitivity the exam. 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 Lung bases: Minimal basilar opacities, likely atelectasis. Normal heart size. No pericardial or pleural effusion. Liver: Normal morphology though mildly enlarged measuring slightly more than 18 cm in maximal sagittal dimension. No liver lesion. Patent hepatic vasculature. Biliary: Mild biliary ductal prominence likely a reservoir effect in the post cholecystectomy state. Gallbladder surgically absent. Pancreas: Mild parenchymal atrophy. Spleen: Normal. Adrenal glands: Normal. Kidneys and ureters: Normal. No hydronephrosis. Ureters poorly visualized. Bladder: Incompletely evaluated secondary to underdistention. Pelvic organs: Uterus surgically absent. Normal ovaries. Bowel: Normal appendix. No bowel obstruction. Peritoneal cavity: No free fluid or intraperitoneal gas. Lymph nodes: No enlarged lymph nodes in the abdomen or pelvis. Vasculature: Aorta and IVC patent and normal in caliber. Abdominal wall: Diastasis of the rectus abdominis. Possible small fat-containing ventral hernia in the supraumbilical region. No associated fluid or inflammatory change to suggest strangulation. Musculoskeletal: Normal. IMPRESSION: 1. No acute intra-abdominal pathology. 2. Mild hepatomegaly. 3. Small fat-containing ventral hernia in the supraumbilical region. 4. Postsurgical changes of hysterectomy. Electronically signed by: Td Quiros M.D. 11/10/2017 12:29 PM [~ rep ct add3]] CHEST ONE VIEW PORTABLE CLINICAL HISTORY: 47 years-old Female presenting with LUQ abd pain. TECHNIQUE: Portable upright AP view of the chest was obtained. COMPARISON: 07/09/2017. FINDINGS: Cardiac silhouette top normal in size. Mild prominence of pulmonary vasculature unchanged. Mildly low lung volumes. No focal opacity. No large effusion or pneumothorax. Osseous structures normal. The stomach appears distended with gas and ingested material. IMPRESSION: 1. Top normal cardiac size with questionable volume overload. No other convincing evidence of acute cardiopulmonary disease. 2. The stomach may be distended with gas and ingested material. Electronically signed by: Td Quiros M.D. 11/10/2017 8:14 AM EKG Normal sinus rhythm Low voltage QRS Cannot rule out Anterior infarct (cited on or before 10-NOV-2017) Abnormal ECG When compared with ECG of 09-JUL-2017 11:06, T wave inversion now evident in Anterior leads Impression Assessment and Plan Ms. Sheppard is a 47 year old woman here for sepsis likely due to ascending cholangitis Duct obstruction/sepsis - admit telemetry - continue Zosyn started in ED, NSS @ 150, morphine for pain control, zofran - blood cultures - consulted GI - Dr. Powell bedside to see patient while I was in the room - AST 757, ALT 562, Alk phos 276, Total bili 2.3, Direct bili 1.6 - repeat prp and LFTs in am - hold Coumadin for possible intervention - will reverse with 5 of vitamin K IV Asthma/COPD - continue home inhalers, montelukast Chronic back pain - continue Baclofen, [place] when taking po GERD - protonix push while npo, then resume ranitidine and po protonix History of PE - reverse Coumadin for intervention, prophylactic Lovenox after procedure Full code SCDs - can restart Coumadin after procedure Resident Physician Supervision Note: I was present with Caty Chatman [employer]'S ATTORNEY during the history and exam. I discussed the case with the STATE'S ATTORNEY and agree with the findings and plan as documented in the note. Any exceptions or clarifications are listed here: 47 y/o F Hx Asthma, cholecystitis, cholangitis - cholecystectomy 2013 - presenting with upper abd pain, N/V, fevers - imaging/labs suggest biliary obstruction OE AAO x 3 S1,2 R CTAB Tender LUQ No CCE P: Admitted for GI evaluation - ERCP is planned same day or AM - IVF, NPO, pain control, antipyretics, Abx provided Cont inhalers as prescribed for asthma Documented By: Luis Hernandez Resuscitation Status VTE Prophylaxis Will order VTE Prophylaxis: Yes Reason for no VTE drug order: Contraindicated
[2017-11-10 16:03] VITALS: BP 149/79; PULSE 95; TEMP 37.5; O2SAT 97
[2017-11-10] MEDS ORDERED: PHYTONADIONE INJ 5 MG in SODIUM CHLORIDE 0.9% 50ML 50 ML IV ONE (16:15)
[2017-11-10] MEDS: SODIUM CHLORIDE 0.9% 1000ML 1,000 ML IV SCH (16:21)
[2017-11-10] MEDS ORDERED: PIPERACILL/TAZOBAC IV 4.5 GM in NSS 100 ML IV ONE (16:30)
--- NOTE | 2017-11-10 16:37 | Gastrointestinal Consultation ---
Gastrointestinal Consultation Date of Consultation: Nov 10, 2017 Attending Physician: Milagro Chatman Consulting Physician: Dr. Powell Reason for Consultation: Elevated LFTs History of Present Illness Patient is a 47 year old female patient of Dr. العراقي with a hx obesity, IBS and having undergone ERCP with sphincterotomy and stone extraction on 11/04/12 then lap cholecystectomy on 11/05/12. She presented to the ED today with symptoms similar to those she felt at the time of cholecystitis. She reports intermittent upper abdomen pain x 2 weeks. Last evening, after supper, she experienced severe upper abdomen pain, radiating to her shoulder blades. She also reports dark urine. Because these symptoms persisted, this morning, she presented to the ED. On arrival, LFTs were elevated: T bili 2.3, Direct 1.6, AST 757, ALT 562, Alk Phos 276. She has leukocytosis as well with WBC 18. CT abd/pelvis with IV/oral contrast showed mild hepatomegaly and mild biliary prominence but no clear evidence of abnormalities. She is awake, alert, oriented, hemodynamically stable though very uncomfortable. US was with similar findings with bile duct measured at 7-8mm. Past Medical/Surgical History Medical Problems: (1) Acute asthma exacerbation Status: Acute (2) Acute bronchitis Status: Acute (3) Anxiety reaction Status: Acute (4) Asthma with exacerbation Status: Acute (5) Exacerbation of asthma Status: Acute (6) Intractable left upper quadrant abdominal pain Status: Acute (7) Pedal edema Status: Acute (8) Post-operative hemorrhage Status: Acute (9) Status asthmaticus Status: Acute (10) Symptomatic anemia Status: Acute (11) Vaginal bleeding Status: Acute Social History Problems: (1) Status post laparoscopic cholecystectomy Status: Acute Past Medical History: 1. Asthma/COPD 2. Anxiety 3. Obesity 4. Chronic Back pain 5. IBS 6. Cholecystitis and choledocholithiasis Past Surgical History: 1. Lap Choley 2. ERCP 3. Appendectomy 4. Nasal septum repair 5. Collarbone repair 6. Hernia repair 7. Bronchial thermoplasty 8. Cholecystectomy 9. ERCP Family History Diabetes mellitus FH ischemic heart disease Social History Smoking Status: Never Smoker Alcohol Use: occasionally Marital Status: Housing Status: lives with family Occupation Status: employed Allergies Coded Allergies: Adhesives (Verified Allergy, Intermediate, TAPE- SEVERE ITCHING, 11/10/17) Chlorhexidine (Verified Allergy, Intermediate, ITCHING, 11/10/17) Clarithromycin (Verified Adverse Reaction, Intermediate, NAUSEA, 11/10/17) Clindamycin (Verified Adverse Reaction, Mild, NAUSEA, 11/10/17) Tramadol (Verified Adverse Reaction, Mild, dizziness,SYNCOPE, 11/10/17) Current Medications Home Meds and Scripts Medications Dose Route/Sig Max Daily Dose Days Date Category Dose Instructions Vitamin C (Ascorbic Acid) 1,000 Mg Tab 1,000 Mg PO DAILY 11/10/17 Reported Ambien (Zolpidem Tartrate) 5 Mg Tab 7.5 Mg PO HS 11/10/17 Reported Coumadin (Warfarin Sodium) 10 Mg Tab 10 Mg PO UD 07/26/17 Reported TAKE 10MG ONE DAY AND THE NEXT DAY TAKE 10MG AND THE NEXT DAY TAKE 15MG. REAPEAT THIS CYCLE Lioresal (Baclofen) 10 Mg Tab 10 Mg PO QPM 07/07/17 Reported Vitamin D 90690 Unit (Ergocalciferol) 50,000 Unit Cap 50,000 Units PO WK 05/22/17 Reported takes on wednesday [place] 10MG/325MG (Acetaminophen/Hydrocodone Bitart) Tab 1 Tab PO Q6H PRN 05/22/17 Reported PRN PAIN Combivent Respimat (Ipratropium-Albuterol) 1 Aer Aer 2 Puffs INH Q2H PRN 09/29/16 Reported Spiriva Respimat (Tiotropium [place]) 1.25 Mcg/Act Aer 1 Puffs INH BID 09/29/16 Reported Flonase Allergy Relief (Fluticasone Propionate (Nasal)) 50 Mcg/Act Spr 1 Sprays MUKESH BID 09/29/16 Reported Cyanocobalamin 1,000 Mcg/Ml Inj 1,000 Mcg SQ WK 09/29/16 Reported ON Xanax (Alprazolam) 2 Mg Tab 2 Mg PO HS 09/29/16 Reported Symbicort 160/4.5 Inhaler (Budesonide/Formoterol Fumarate) Aero 2 Puffs INH BID 07/15/15 Reported Aleve (Naproxen) 220 Mg Tab 440 Mg PO BID 08/05/14 Reported Zantac (Ranitidine Hcl) 150 Mg Tab 150 Mg PO HS 12/04/13 Reported Lasix (Furosemide) 20 Mg Tab 20 Mg PO DAILY PRN 12/04/13 Reported Duoneb (Ipratropium-Albuterol) 3 Ml Nebu 1 Treatment INH Q4 PRN 05/08/13 Reported Singulair (Montelukast Sodium) 10 Mg Tab 10 Mg PO HS 05/08/13 Reported Susanne (Fexofenadine Hcl) 180 Mg Tab 180 Mg PO QAM 05/08/13 Reported Prilosec (Omeprazole) 20 Mg Capcr 20 Mg PO QAM 11/11/12 Reported Review of Systems Constitutional: No fever, No chills, No sweats, No weight loss, No weakness Eyes: No eye pain, No redness ENT: No sore throat, No trouble swallowing, No pain on swallowing Respiratory: No cough, No wheezing, No shortness of breath, No dyspnea on exertion Cardiac: No chest pain, No edema, No palpitations Abdomen: + see HPI, + pain, + nausea, + GI bleeding, + acolic stools, + dark urine Female : No dysuria Neuro: No memory loss, No weakness, No numbness/tingling, No vertigo, No balance problems Psych: No depression symptoms, No anxiety, No insomnia Heme: No abnormal bleeding/bruising, No night sweats Endo: No excessive thirst, No excessive urination Skin: No rash, No itch, No new/changing skin lesions, No jaundice Physical Exam Date Time Temp Pulse Resp B/P (MAP) Pulse Ox O2 Delivery O2 Flow Rate FiO2 11/10/17 16:03 37.5 95 22 149/79 (102) 97 Room Air 11/10/17 15:04 94 Room Air 11/10/17 14:40 95 18 112/65 94 Room Air 11/10/17 13:23 38.3 101 18 112/60 93 Room Air 11/10/17 12:40 102 20 141/73 94 Room Air 11/10/17 11:19 101 18 138/70 93 Room Air 11/10/17 10:48 100 18 147/72 95 Room Air 11/10/17 09:26 100 18 150/71 94 Room Air 11/10/17 08:20 96 20 145/76 96 Room Air 11/10/17 07:13 36.6 103 18 173/63 96 Room Air General Appearance: no apparent distress Eyes: normal inspection, EOMI Neck: supple, no adenopathy, thyroid normal, no JVD Respiratory/Chest: chest non-tender, lungs clear, normal breath sounds, no accessory muscle use Cardiovascular: regular rate, rhythm, no JVD, no murmur Abdomen: normal bowel sounds, soft, no organomegaly, + tenderness (very tender over the entire upper abdomen) Extremities: normal inspection, no pedal edema, normal capillary refill Neurologic/Psych: alert, normal mood/affect, oriented x 3 Skin: normal color, no jaundice, warm/dry, no rash Laboratory Results Last 24 Hours Test 11/10/17 07:57 11/10/17 12:40 11/10/17 15:20 White Blood Count 18.37 K/uL Red Blood Count 4.71 M/uL Hemoglobin 10.1 g/dL Hematocrit 33.2 % Mean Corpuscular Volume 70.5 fL Mean Corpuscular Hemoglobin 21.4 pg Mean Corpuscular Hemoglobin Concent 30.4 g/dl Platelet Count 521 K/uL Mean Platelet Volume 9.6 fL Neutrophils (%) (Auto) 93.6 % Lymphocytes (%) (Auto) 4.0 % Monocytes (%) (Auto) 1.8 % Eosinophils (%) (Auto) 0.3 % Basophils (%) (Auto) 0.1 % Neutrophils # (Auto) 17.21 K/uL Lymphocytes # (Auto) 0.73 K/uL Monocytes # (Auto) 0.33 K/uL Eosinophils # (Auto) 0.05 K/uL Basophils # (Auto) 0.02 K/uL RDW Standard Deviation 46.7 fL RDW Coefficient of Variation 18.1 % Immature Granulocyte % (Auto) 0.2 % Immature Granulocyte # (Auto) 0.03 K/uL Hypochromasia PRESENT Microcytosis PRESENT Prothrombin Time 26.1 SECONDS Prothromb Time International Ratio 2.5 Activated Partial Thromboplast Time 41.3 SECONDS Partial Thromboplastin Ratio 1.6 D-Dimer 490 ug/L FEU Sodium Level 137 mmol/L Potassium Level 3.8 mmol/L Chloride Level 102 mmol/L Carbon Dioxide Level 27 mmol/L Anion Gap 8.0 mmol/L Blood Urea Nitrogen 10 mg/dl Creatinine 0.66 mg/dl Est Creatinine Clear Calc Drug Dose 170.1 ml/min Estimated GFR () 123.6 Estimated GFR (Non- 106.7 BUN/Creatinine Ratio 15.6 Random Glucose 134 mg/dl Calcium Level 9.3 mg/dl Total Bilirubin 2.3 mg/dl Direct Bilirubin 1.6 mg/dl Aspartate Amino Transf (AST/SGOT) 757 U/L Alanine Aminotransferase (ALT/SGPT) 562 U/L Alkaline Phosphatase 276 U/L Total Creatine Kinase 81 U/L Troponin I < 0.015 ng/ml Pro-B-Type Natriuretic Peptide 115 pg/ml Total Protein 8.1 gm/dl Albumin 3.7 gm/dl Lipase 144 U/L Urine Color DK YELLOW Urine Appearance CLEAR Urine pH 6.0 Urine Specific [place] > 1.045 Urine Protein NEG Urine Glucose (UA) NEG Urine Ketones NEG Urine Occult Blood 2+ Urine Nitrite POS Urine Bilirubin 2+ Urine Urobilinogen NEG Urine Leukocyte Esterase TRACE Urine WBC (Auto) 1-5 /hpf Urine RBC (Auto) 5-10 /hpf Urine Hyaline Casts (Auto) 1-5 /lpf Urine Epithelial Cells (Auto) >30 /lpf Urine Bacteria (Auto) NEG Lactic Acid Level 1.0 mmol/L Impression Patient is a 47 year old female with upper abdomen pain, elevated LFTs, leukocytosis and slight CBD prominence. This is suggestive of choledocholithiasis and cholangitis, though imaging does not confirm this. If continued imaging is normal then other considerations would be hepatitis and/or drug induced liver injury as well as autoimmune hepatitis. Plan 1. MRCP tonight. 2. Keep NPO until after MRCP then may have clear liquids, but NPO again after midnight. 3. If MRCP (-) then EUS tomorrow by Dr. Powell 4. If MRCP (+) then ERCP on Wednesday. 5. Recheck WBC, LFTs tomorrow. 6. Will continue to follow closely.
--- NOTE | 2017-11-10 16:40 | Gastrointestinal Consultation ---
Gastrointestinal Consultation Date of Consultation: Nov 10, 2017 History of Present Illness Patient is a 47 year old female with below past medical history but significant for asthma, as well as history of common bile duct stones. She presents with a two-week history of intermittent colicky abdominal pain located in the epigastric region. The pain is been on and off again intermittently with food in the last 2 weeks until last night which time it became quite severe and intense. The pain located in her epigastrium and radiated to her back that occurred after eating. Pain persisted all night until this morning, she began to notice that her urine turned dark, stools have become quite erratic and andre colored. She has had intermittent fevers and chills, and she has had pain that is persistent. She was febrile in the ER to 38.3. Of note she has an INR that is therapeutic at 2.5. In the emergency room she was evaluated with labs that included a total bilirubin of 2.3 AST of 757, ALT of 562, alk phos 276, white blood cell count of 18, platelet count of 521, INR 2.5. Right upper quadrant ultrasound and CT scan of the abdomen as below but significant for prominent extrahepatic bile ducts, but no overt filling defect. Right upper quadrant ultrasound IMPRESSION: 1. Hepatic steatosis. Correlate with liver function tests to exclude steatohepatitis as a cause for abdominal pain. 2. Status post cholecystectomy. Mild prominence of the extra hepatic bile ducts likely a reservoir effect in the post cholecystectomy state. CT scan FINDINGS: Image quality is degraded by patient body habitus, which mildly limits diagnostic sensitivity the exam. Cherry Pitter topogram: Unremarkable. Lung bases: Minimal basilar opacities, likely atelectasis. Normal heart size. No pericardial or pleural effusion. Liver: Normal morphology though mildly enlarged measuring slightly more than 18 cm in maximal sagittal dimension. No liver lesion. Patent hepatic vasculature. Biliary: Mild biliary ductal prominence likely a reservoir effect in the post cholecystectomy state. Gallbladder surgically absent. Pancreas: Mild parenchymal atrophy. Spleen: Normal. Adrenal glands: Normal. Kidneys and ureters: Normal. No hydronephrosis. Ureters poorly visualized. Bladder: Incompletely evaluated secondary to underdistention. Pelvic organs: Uterus surgically absent. Normal ovaries. Bowel: Normal appendix. No bowel obstruction. Peritoneal cavity: No free fluid or intraperitoneal gas. Lymph nodes: No enlarged lymph nodes in the abdomen or pelvis. Vasculature: Aorta and IVC patent and normal in caliber. Abdominal wall: Diastasis of the rectus abdominis. Possible small fat-containing ventral hernia in the supraumbilical region. No associated fluid or inflammatory change to suggest strangulation. Musculoskeletal: Normal. IMPRESSION: 1. No acute intra-abdominal pathology. 2. Mild hepatomegaly. 3. Small fat-containing ventral hernia in the supraumbilical region. 4. Postsurgical changes of hysterectomy. Past Medical/Surgical History Medical Problems: (1) Acute asthma exacerbation Status: Acute (2) Acute bronchitis Status: Acute (3) Anxiety reaction Status: Acute (4) Asthma with exacerbation Status: Acute (5) Exacerbation of asthma Status: Acute (6) Intractable left upper quadrant abdominal pain Status: Acute (7) Pedal edema Status: Acute (8) Post-operative hemorrhage Status: Acute (9) Status asthmaticus Status: Acute (10) Symptomatic anemia Status: Acute (11) Vaginal bleeding Status: Acute Social History Problems: (1) Status post laparoscopic cholecystectomy Status: Acute Family History Diabetes mellitus FH ischemic heart disease Social History Smoking Status: Never Smoker Alcohol Use: occasionally Marital Status: Housing Status: lives with family Occupation Status: employed Allergies Coded Allergies: Adhesives (Verified Allergy, Intermediate, TAPE- SEVERE ITCHING, 11/10/17) Chlorhexidine (Verified Allergy, Intermediate, ITCHING, 11/10/17) Clarithromycin (Verified Adverse Reaction, Intermediate, NAUSEA, 11/10/17) Clindamycin (Verified Adverse Reaction, Mild, NAUSEA, 11/10/17) Tramadol (Verified Adverse Reaction, Mild, dizziness,SYNCOPE, 11/10/17) Current Medications Home Meds and Scripts Medications Dose Route/Sig Max Daily Dose Days Date Category Dose Instructions Vitamin C (Ascorbic Acid) 1,000 Mg Tab 1,000 Mg PO DAILY 11/10/17 Reported Ambien (Zolpidem Tartrate) 5 Mg Tab 7.5 Mg PO HS 11/10/17 Reported Coumadin (Warfarin Sodium) 10 Mg Tab 10 Mg PO UD 07/26/17 Reported TAKE 10MG ONE DAY AND THE NEXT DAY TAKE 10MG AND THE NEXT DAY TAKE 15MG. REAPEAT THIS CYCLE Lioresal (Baclofen) 10 Mg Tab 10 Mg PO QPM 07/07/17 Reported Vitamin D 19630 Unit (Ergocalciferol) 50,000 Unit Cap 50,000 Units PO WK 05/22/17 Reported takes on wednesday [place] 10MG/325MG (Acetaminophen/Hydrocodone Bitart) Tab 1 Tab PO Q6H PRN 05/22/17 Reported PRN PAIN Combivent Respimat (Ipratropium-Albuterol) 1 Aer Aer 2 Puffs INH Q2H PRN 09/29/16 Reported Spiriva Respimat (Tiotropium [place]) 1.25 Mcg/Act Aer 1 Puffs INH BID 09/29/16 Reported Flonase Allergy Relief (Fluticasone Propionate (Nasal)) 50 Mcg/Act Spr 1 Sprays MUKESH BID 09/29/16 Reported Cyanocobalamin 1,000 Mcg/Ml Inj 1,000 Mcg SQ WK 09/29/16 Reported ON Xanax (Alprazolam) 2 Mg Tab 2 Mg PO HS 09/29/16 Reported Symbicort 160/4.5 Inhaler (Budesonide/Formoterol Fumarate) Aero 2 Puffs INH BID 07/15/15 Reported Aleve (Naproxen) 220 Mg Tab 440 Mg PO BID 08/05/14 Reported Zantac (Ranitidine Hcl) 150 Mg Tab 150 Mg PO HS 12/04/13 Reported Lasix (Furosemide) 20 Mg Tab 20 Mg PO DAILY PRN 12/04/13 Reported Duoneb (Ipratropium-Albuterol) 3 Ml Nebu 1 Treatment INH Q4 PRN 05/08/13 Reported Singulair (Montelukast Sodium) 10 Mg Tab 10 Mg PO HS 05/08/13 Reported Susanne (Fexofenadine Hcl) 180 Mg Tab 180 Mg PO QAM 05/08/13 Reported Prilosec (Omeprazole) 20 Mg Capcr 20 Mg PO QAM 11/11/12 Reported Review of Systems Constitutional: + fever, + chills ENT: No see HPI, No hearing loss, No unusual epistaxis, No nasal symptoms, No sore throat, No tinnitus, No dental problems, No trouble swallowing, No pain on swallowing, No problem reported Respiratory: No see HPI, No cough, No sputum, No wheezing, No shortness of breath, No dyspnea on exertion, No dyspnea at rest, No hemoptysis, No problem reported Cardiac: No see HPI, No chest pain, No orthopnea, No PND, No edema, No claudication, No palpitations, No problem reported Abdomen: No see HPI, No pain, No nausea, No vomiting, No diarrhea, No constipation, No GI bleeding, No dysphagia, No odynophagia, No acolic stools, No jaundice, No dark urine, No problem reported Musculoskeletal: No see HPI, No joint pain, No muscle pain, No swelling, No calf pain, No problem reported Female : No see HPI, No dysuria, No urinary frequency, No hematuria, No incontinence, No abnormal vaginal bleeding, No vaginal discharge, No problem reported Physical Exam Date Time Temp Pulse Resp B/P (MAP) Pulse Ox O2 Delivery O2 Flow Rate FiO2 11/10/17 16:03 37.5 95 22 149/79 (102) 97 Room Air 11/10/17 15:04 94 Room Air 11/10/17 14:40 95 18 112/65 94 Room Air 11/10/17 13:23 38.3 101 18 112/60 93 Room Air 11/10/17 12:40 102 20 141/73 94 Room Air 11/10/17 11:19 101 18 138/70 93 Room Air 11/10/17 10:48 100 18 147/72 95 Room Air 11/10/17 09:26 100 18 150/71 94 Room Air 11/10/17 08:20 96 20 145/76 96 Room Air 11/10/17 07:13 36.6 103 18 173/63 96 Room Air General Appearance: + obese, + pertinent finding (Diaphoretic) Eyes: normal inspection ENT: normal ENT inspection Neck: supple Respiratory/Chest: chest non-tender, lungs clear Cardiovascular: regular rate, rhythm, no edema, no gallop Abdomen: normal bowel sounds, non tender, + pertinent finding (Mild tenderness in the epigastrium) Extremities: normal range of motion, non-tender Neurologic/Psych: manager chemistry II-XII nml as tested Laboratory Results Last 24 Hours Test 11/10/17 07:57 11/10/17 12:40 11/10/17 15:20 White Blood Count 18.37 K/uL Red Blood Count 4.71 M/uL Hemoglobin 10.1 g/dL Hematocrit 33.2 % Mean Corpuscular Volume 70.5 fL Mean Corpuscular Hemoglobin 21.4 pg Mean Corpuscular Hemoglobin Concent 30.4 g/dl Platelet Count 521 K/uL Mean Platelet Volume 9.6 fL Neutrophils (%) (Auto) 93.6 % Lymphocytes (%) (Auto) 4.0 % Monocytes (%) (Auto) 1.8 % Eosinophils (%) (Auto) 0.3 % Basophils (%) (Auto) 0.1 % Neutrophils # (Auto) 17.21 K/uL Lymphocytes # (Auto) 0.73 K/uL Monocytes # (Auto) 0.33 K/uL Eosinophils # (Auto) 0.05 K/uL Basophils # (Auto) 0.02 K/uL RDW Standard Deviation 46.7 fL RDW Coefficient of Variation 18.1 % Immature Granulocyte % (Auto) 0.2 % Immature Granulocyte # (Auto) 0.03 K/uL Hypochromasia PRESENT Microcytosis PRESENT Prothrombin Time 26.1 SECONDS Prothromb Time International Ratio 2.5 Activated Partial Thromboplast Time 41.3 SECONDS Partial Thromboplastin Ratio 1.6 D-Dimer 490 ug/L FEU Sodium Level 137 mmol/L Potassium Level 3.8 mmol/L Chloride Level 102 mmol/L Carbon Dioxide Level 27 mmol/L Anion Gap 8.0 mmol/L Blood Urea Nitrogen 10 mg/dl Creatinine 0.66 mg/dl Est Creatinine Clear Calc Drug Dose 170.1 ml/min Estimated GFR () 123.6 Estimated GFR (Non- 106.7 BUN/Creatinine Ratio 15.6 Random Glucose 134 mg/dl Calcium Level 9.3 mg/dl Total Bilirubin 2.3 mg/dl Direct Bilirubin 1.6 mg/dl Aspartate Amino Transf (AST/SGOT) 757 U/L Alanine Aminotransferase (ALT/SGPT) 562 U/L Alkaline Phosphatase 276 U/L Total Creatine Kinase 81 U/L Troponin I < 0.015 ng/ml Pro-B-Type Natriuretic Peptide 115 pg/ml Total Protein 8.1 gm/dl Albumin 3.7 gm/dl Lipase 144 U/L Urine Color DK YELLOW Urine Appearance CLEAR Urine pH 6.0 Urine Specific [place] > 1.045 Urine Protein NEG Urine Glucose (UA) NEG Urine Ketones NEG Urine Occult Blood 2+ Urine Nitrite POS Urine Bilirubin 2+ Urine Urobilinogen NEG Urine Leukocyte Esterase TRACE Urine WBC (Auto) 1-5 /hpf Urine RBC (Auto) 5-10 /hpf Urine Hyaline Casts (Auto) 1-5 /lpf Urine Epithelial Cells (Auto) >30 /lpf Urine Bacteria (Auto) NEG Lactic Acid Level 1.0 mmol/L Impression Patient is a 47 year old female presenting with epigastric mild right upper quadrant abdominal pain in the setting of elevated LFTs, elevated white count, and concern for biliary obstruction with possible ascending cholangitis. Plan Agree with IV antibiotics, also order blood cultures. IV fluids and resuscitation N.p.o. Pain control Although her imaging at this point does not reveal overt biliary obstruction, she has a very classical presentation. Will discuss with biliary endoscopist, consider MRCP tonight, reverse INR, and we will plan on ERCP tentatively tomorrow or Wednesday pending her clinical course. If she begins to have hemodynamic parameter changes including hypotension and please contact GI and will expedite procedure. Please call with questions or concerns and any clinical change
[2017-11-10] MEDS ORDERED: METOCLOPRAMIDE HCL INJ 5 MG/ML 2 ML VIAL ONE (17:20)
[2017-11-10 18:40] VITALS: BP 132/74; PULSE 86; TEMP 37.1; O2SAT 94
[2017-11-10] MEDS: BUDESONIDE/FORMOTEROL FUMARATE 160/4.5 60 PUFFS/INHALER INH SCH (20:51)
[2017-11-10] MEDS: PIPERACILL/TAZOBAC IV 4.5 GM in NSS 100 ML IV SCH (20:51)
[2017-11-11] VITALS (7 sets, daily range): BP systolic 111–157; BP diastolic 61–87; PULSE 49–72; TEMP 36.6–37; O2SAT 94–98
[2017-11-11] MEDS: MoRPHine SULFATE 4 MG/ML 1 ML CARP\\VIAL IV PRN ×5 (00:01→23:38)
[2017-11-11] MEDS: METOCLOPRAMIDE HCL INJ 5 MG/ML 2 ML VIAL IV. PRN ×4 (00:01→19:28)
[2017-11-11] MEDS: PIPERACILL/TAZOBAC IV 4.5 GM in NSS 100 ML IV SCH ×3 (04:09→19:40)
[2017-11-11] MEDS: BUDESONIDE/FORMOTEROL FUMARATE 160/4.5 60 PUFFS/INHALER INH SCH ×2 (07:58→19:40)
[2017-11-11] MEDS: SODIUM CHLORIDE 0.9% 1000ML 1,000 ML IV SCH ×5 (08:04→23:46)
[2017-11-11] MEDS: ONDANSETRON INJ 2 MG/ML 2 ML VIAL IV PRN ×4 (08:04→23:37)
[2017-11-11 08:06] LABS: HEMATOCRIT 27.8 % (37-47); HEMOGLOBIN 8.4 g/dL (12.0-16.0); MEAN CELL VOLUME 71.1 fL (80-100); MEAN CORPUSCULAR HEMOGLOBIN 21.5 pg (25-34); MEAN CORPUSCULAR HGB CONC 30.2 g/dl (32-36); MEAN PLATELET VOLUME 9.2 fL (7.4-10.4); PLATELET COUNT 383 K/uL (130-400); RED CELL DISTRIBUTION WIDTH CV 18.4 % (11.5-14.5); WHITE BLOOD COUNT 11.82 K/uL (4.8-10.8)
[2017-11-11 08:08] LABS: INR 1.4 (0.9-1.1)
[2017-11-11 08:27] LABS: ALBUMIN 2.9 gm/dl (3.4-5.0); CALCIUM 8.7 mg/dl (8.5-10.1); CREATININE 0.6 mg/dl (0.60-1.20); POTASSIUM 3.7 mmol/L (3.5-5.1)
[2017-11-11 08:32] LABS: TOTAL PROTEIN 6.9 gm/dl (6.4-8.2)
--- NOTE | 2017-11-11 10:45 | Hospitalist Progress Note ---
Hospitalist Progress Note Date of Service Nov 11, 2017. (Eugene Arana CRNP) Objective Vital Signs Date Time Temp Pulse Resp B/P (MAP) Pulse Ox O2 Delivery O2 Flow Rate FiO2 11/11/17 08:00 Room Air 11/11/17 07:57 36.6 63 18 113/72 (86) 97 Room Air 11/11/17 04:14 37.0 71 20 130/75 (93) 94 Room Air 11/11/17 04:00 Room Air 11/11/17 00:24 36.9 72 16 111/70 (84) 95 Room Air 11/11/17 00:00 Room Air 11/10/17 20:00 Room Air 11/10/17 18:40 37.1 86 20 132/74 (93) 94 Room Air 11/10/17 16:03 37.5 95 22 149/79 (102) 97 Room Air 11/10/17 15:04 94 Room Air 11/10/17 14:40 95 18 112/65 94 Room Air 11/10/17 13:23 38.3 101 18 112/60 93 Room Air 11/10/17 12:40 102 20 141/73 94 Room Air 11/10/17 11:19 101 18 138/70 93 Room Air 11/10/17 10:48 100 18 147/72 95 Room Air (Eugene Arana CRNP) Laboratory Results Last 24 Hours Test 11/10/17 12:40 11/10/17 15:20 11/11/17 07:38 Urine Color DK YELLOW Urine Appearance CLEAR Urine pH 6.0 Urine Specific [place] > 1.045 Urine Protein NEG Urine Glucose (UA) NEG Urine Ketones NEG Urine Occult Blood 2+ Urine Nitrite POS Urine Bilirubin 2+ Urine Urobilinogen NEG Urine Leukocyte Esterase TRACE Urine WBC (Auto) 1-5 /hpf Urine RBC (Auto) 5-10 /hpf Urine Hyaline Casts (Auto) 1-5 /lpf Urine Epithelial Cells (Auto) >30 /lpf Urine Bacteria (Auto) NEG Lactic Acid Level 1.0 mmol/L White Blood Count 11.82 K/uL Red Blood Count 3.91 M/uL Hemoglobin 8.4 g/dL Hematocrit 27.8 % Mean Corpuscular Volume 71.1 fL Mean Corpuscular Hemoglobin 21.5 pg Mean Corpuscular Hemoglobin Concent 30.2 g/dl RDW Standard Deviation 48.0 fL RDW Coefficient of Variation 18.4 % Platelet Count 383 K/uL Mean Platelet Volume 9.2 fL Prothrombin Time 15.1 SECONDS Prothromb Time International Ratio 1.4 Sodium Level 138 mmol/L Potassium Level 3.7 mmol/L Chloride Level 105 mmol/L Carbon Dioxide Level 26 mmol/L Anion Gap 7.0 mmol/L Blood Urea Nitrogen 9 mg/dl Creatinine 0.60 mg/dl Est Creatinine Clear Calc Drug Dose 186.8 ml/min Estimated GFR () 127.6 Estimated GFR (Non- 110.1 BUN/Creatinine Ratio 15.4 Random Glucose 98 mg/dl Calcium Level 8.7 mg/dl Total Bilirubin 1.5 mg/dl Direct Bilirubin 1.0 mg/dl Aspartate Amino Transf (AST/SGOT) 207 U/L Alanine Aminotransferase (ALT/SGPT) 370 U/L Alkaline Phosphatase 242 U/L Total Protein 6.9 gm/dl Albumin 2.9 gm/dl (Eugene Arana ., FE) Diagnostic Results Right upper quadrant ultrasound IMPRESSION: 1. Hepatic steatosis. Correlate with liver function tests to exclude steatohepatitis as a cause for abdominal pain. 2. Status post cholecystectomy. Mild prominence of the extra hepatic bile ducts likely a reservoir effect in the post cholecystectomy state. CT scan FINDINGS: Image quality is degraded by patient body habitus, which mildly limits diagnostic sensitivity the exam. Exercise Physiology Professor topogram: Unremarkable. Lung bases: Minimal basilar opacities, likely atelectasis. Normal heart size. No pericardial or pleural effusion. Liver: Normal morphology though mildly enlarged measuring slightly more than 18 cm in maximal sagittal dimension. No liver lesion. Patent hepatic vasculature. Biliary: Mild biliary ductal prominence likely a reservoir effect in the post cholecystectomy state. Gallbladder surgically absent. Pancreas: Mild parenchymal atrophy. Spleen: Normal. Adrenal glands: Normal. Kidneys and ureters: Normal. No hydronephrosis. Ureters poorly visualized. Bladder: Incompletely evaluated secondary to underdistention. Pelvic organs: Uterus surgically absent. Normal ovaries. Bowel: Normal appendix. No bowel obstruction. Peritoneal cavity: No free fluid or intraperitoneal gas. Lymph nodes: No enlarged lymph nodes in the abdomen or pelvis. Vasculature: Aorta and IVC patent and normal in caliber. Abdominal wall: Diastasis of the rectus abdominis. Possible small fat-containing ventral hernia in the supraumbilical region. No associated fluid or inflammatory change to suggest strangulation. Musculoskeletal: Normal. IMPRESSION: 1. No acute intra-abdominal pathology. 2. Mild hepatomegaly. 3. Small fat-containing ventral hernia in the supraumbilical region. 4. Postsurgical changes of hysterectomy. (Eugene Arana CRNP) Assessment and Plan Patient is a 47 year old female presenting with epigastric mild right upper quadrant abdominal pain in the setting of elevated LFTs, elevated white count, and concern for biliary obstruction with possible ascending cholangitis. 1. SIRS with no clear source of infection - possible ascending cholangitis - afebrile, WBC 18.3 to 11.8. Normotensive and no longer tachycardic - cont Zosyn for now. 2. Concern for choledocholithiasis - for MRCP today - appreciate GI input. 3. Abdominal pain - still unclear etiology. Morphine IV is controlling pain. 4. Elevated transaminase - improving - AST 757 to 207, ALT 562 to 370. ALK phos also elevated and improving. 276 to 212. US showed hepatic steatosis. 5. Hx of PE on coumadin. was given vit K yesterday. INR 2.5 to 1.4 today. Coumadin on hold incase any procedure needed. 6. DVT prophylaxis will be with coumadin when resumed. 7. ELS one or two more days. Plan Agree with IV antibiotics, also order blood cultures. IV fluids and resuscitation N.p.o. Pain control Although her imaging at this point does not reveal overt biliary obstruction, she has a very classical presentation. Will discuss with biliary endoscopist, consider MRCP tonight, reverse INR, and we will plan on ERCP tentatively tomorrow or Wednesday pending her clinical course. If she begins to have hemodynamic parameter changes including hypotension and please contact GI and will expedite procedure. Please call with questions or concerns and any clinical change Continued [facility] stay due to: multiple IV medications needed Discharge planning: home (Eugene Arana CRNP) FE Physician Supervision Note: I interviewed and examined the patient. Discussed with Eugene MIRAMONTES and agree with findings and plan as documented in the note. Any exceptions or clarifications are listed here: None This pt recovering after ERCP washout sphincterotomy and stent placement for ascending cholangitis for microlithiasis she is awake and doing well although mildly nauseated vitals are stable, lungs clear abdomen is with hypoactive bowel sounds mildly tender Ascending cholangitis from microlithiasis or sphincter stenosis status post ERCP washout continuing parenteral antibiotics pain control and surveillance for pancreatitis Documented By: Charli Gant (Charli Gant M.D.)
[2017-11-11] MEDS: LORAZEPAM 2 MG/ML 1 ML VIAL IV PRN ×2 (12:13→19:40)
[2017-11-11] MEDS: PANTOprazole INJ 40 MG in SYRINGE 0 ML IV SCH (12:14)
[2017-11-11] MEDS: MoRPHine SULFATE 2 MG/ML CARP IV PRN ×2 (13:25→21:33)
--- NOTE | 2017-11-11 13:52 | DIAGNOSTIC IMAGING REPORT ---
MRCP CLINICAL HISTORY: pain, elevated LFTs, r/o choledocholithiasis TECHNIQUE: MRCP of the abdomen was performed without intravenous contrast according to standard departmental protocol. COMPARISON STUDY: Abdomen and pelvis CT 11/10/2017. FINDINGS: The lung bases are clear. No hepatic or splenic masses. The adrenal glands, kidneys, and pancreas are unremarkable. The main pancreatic duct is normal in course and caliber. The common bile duct is mildly distended measuring up to 1 cm. Prior cholecystectomy. There is a 9 mm obstructing stone within the distal common bile duct. There is also minimal intrahepatic bile duct dilatation. IMPRESSION: A 9 mm stone within the distal common bile duct resulting in mild bile duct dilatation. Electronically signed by: Dameon Hawthorne M.D. 11/11/2017 1:50 PM Dictated Date/Time: 11/11/2017 1:33 PM
[2017-11-11] MEDS ORDERED: EpHEDrine SULFATE INJ 50 MG/ML AMP ONE (14:40)
[2017-11-11] MEDS ORDERED: PROPOFOL IV EMULSION 10 MG/ML 20 ML VIAL IV ONE (14:40)
[2017-11-11] MEDS ORDERED: SUCCINYLCHOLINE CHLORIDE 20 MG/ML 10 ML VIAL IV ONE (14:40)
[2017-11-11] MEDS ORDERED: GLYCOPYRROLATE INJ 0.2 MG/ML VIAL ONE (14:40)
[2017-11-11] MEDS ORDERED: PHENYLEPHRINE HCL INJ 10 MG/ML VIAL ONE (14:40)
[2017-11-11] MEDS ORDERED: LIDOCAINE HCL 2% 2 ML VIAL (20MG/ML) ONE (14:40)
[2017-11-11] MEDS ORDERED: NEOSTIGMINE METHYLSULFATE 5 MG/5 ML SYR ONE (14:40)
[2017-11-11] MEDS ORDERED: ONDANSETRON INJ 2 MG/ML 2 ML VIAL ONE (14:40)
[2017-11-11] MEDS ORDERED: DEXAMETHASONE SOD INJ 4 MG/ML VIAL ONE (14:40)
[2017-11-11] MEDS ORDERED: FENTANYL CITRATE INJ 50 MCG/1 ML 2 ML VIAL ONE (14:41)
[2017-11-11] MEDS ORDERED: MIDAZOLAM HCL 1 MG/ML 2ML VIAL ONE (14:41)
[2017-11-11] MEDS ORDERED: INDOMETHACIN 50 MG SUPP PR ONE ×2 (14:54→15:00)
--- NOTE | 2017-11-11 14:59 | History & Physical Bridge Note ---
H&P Re-Evaluation Bridge Note: I have examined the patient, reviewed the History & Physical and in the interval since the performance of the History & Physical I have noted the following changes of clinical significance: No changes noted 47 years old female patient admitted with biliary pain, found to have elevated bilirubin and has dilated CBD on imaging, initial leukocytosis is trending down with ABx, possible ascending cholangitis. Discussed with the patient regarding risk, benefit and alternatives of ERCP, risk of pancreatitis, perforation and bleeding, she agreed and consented.
[2017-11-11] MEDS ORDERED: ATROPINE SULFATE 0.1 MG/ML 5ML SYR IV PRN (15:15)
[2017-11-11] MEDS ORDERED: PROMETHAZINE HCL INJ 12.5 MG in SODIUM CHLORIDE 0.9% 50ML 50 ML IV PRN (15:15)
[2017-11-11] MEDS ORDERED: SCOPOLAMINE 1.5 MG TDSY TD SCH (15:15)
[2017-11-11] MEDS ORDERED: FENTANYL CITRATE INJ 50 MCG/1 ML 2 ML VIAL IV PRN (15:15)
[2017-11-11] MEDS ORDERED: SCOPOLAMINE 1.5 MG TDSY TD ONE (15:15)
[2017-11-11] MEDS ORDERED: EpHEDrine SULFATE INJ 50 MG/ML AMP IV PRN (15:15)
[2017-11-11] MEDS ORDERED: HYDROmorphone INJ 1 MG/ML SYR IV PRN (15:15)
[2017-11-11] MEDS ORDERED: PHENYLEPHRINE 100MCG/ML 5ML SYR IV PRN (15:15)
[2017-11-11] MEDS ORDERED: ONDANSETRON INJ 2 MG/ML 2 ML VIAL IV PRN (15:15)
--- NOTE | 2017-11-11 16:31 | [facility] Post Operative Brief Note ---
Immediate Operative Summary Operative Date Nov 11, 2017. Pre-Operative Diagnosis Suspected biliary obstruction Post-Operative Diagnosis Gallstones and Cholangitis Procedure(s) Performed Endoscopic Retrograde Cholangiopancreatography, Balloon Dilation of Common Bile Duct, Placement of Biliary stent Common Bile Duct Surgeon Dr. Ho Airplane Electrician Surgeon(s) None Estimated Blood Loss 0 mL Findings See Below CBD stones removed. Sludge and pus seen. Stent placed. Specimens No pathology specimens per surgeon Anesthesia Type General
[2017-11-11] MEDS ORDERED: ROCURONIUM BROMIDE 10 MG/ML 5 ML VIAL IV ONE (16:34)
--- NOTE | 2017-11-11 16:44 | DIAGNOSTIC IMAGING REPORT ---
ERCP BILIARY DUCTAL CLINICAL HISTORY: 47 years-old Female presenting with EXPLORE DUCTS. TECHNIQUE: Fluoroscopy was provided for an intraoperative cholangiogram status post cholecystectomy. Contrast was injected through the cystic duct remnant. COMPARISON: Ultrasound from 11/10/2017 and MRCP from 11/11/2017. FINDINGS: An endoscope projects over the descending duodenum. A catheter was introduced over guidewire into the common bile duct. The bile ducts were opacified with contrast demonstrating mild intrahepatic and extrahepatic biliary ductal dilatation. The cystic duct remnant was nondilated. Postsurgical changes of cholecystectomy. Apparent filling defect within the common duct at the level of the pancreatic head. This was subsequently cleared with a balloon. Fluoroscopy dosage (mGy): 89.3. Fluoroscopy time: 134.3 seconds. Number of fluoroscopic spot images: 6. IMPRESSION: Fluoroscopy provided for an intraprocedural cholangiogram for clearance of choledocholithiasis. Electronically signed by: Td Quiros M.D. 11/11/2017 4:43 PM Dictated Date/Time: 11/11/2017 4:40 PM
--- NOTE | 2017-11-11 17:07 | GI REPORT ---
Procedure Date: 11/11/2017 2:59 PM Procedure: ERCP Indications: Abnormal MRCP, For therapy of bile duct stone(s), Suspected ascending cholangitis, Jaundice, Elevated liver enzymes Medicines: General Anesthesia Complications: No immediate complications. Estimated Blood Loss: Estimated blood loss: none. Procedure: Pre-Anesthesia Assessment: - Prior to the procedure, a History and Physical was performed, and patient medications and allergies were reviewed. The patient is competent. The risks and benefits of the procedure and the sedation options and risks were discussed with the patient. All questions were answered and informed consent was obtained. Patient identification and proposed procedure were verified by the physician and the nurse in the procedure room. Mental Status Examination: alert and oriented. Airway Examination: normal oropharyngeal airway and neck mobility. Respiratory Examination: clear to auscultation. CV Examination: normal. ASA Grade Assessment: II - A patient with mild systemic disease. After reviewing the risks and benefits, the patient was deemed in satisfactory condition to undergo the procedure. The anesthesia plan was to use general anesthesia. Immediately prior to administration of medications, the patient was re-assessed for adequacy to receive sedatives. The heart rate, respiratory rate, oxygen saturations, blood pressure, adequacy of pulmonary ventilation, and response to care were monitored throughout the procedure. The physical status of the patient was re-assessed after the procedure. After obtaining informed consent, the scope was passed under direct vision. Throughout the procedure, the patient's blood pressure, pulse, and oxygen saturations were monitored continuously. The SCOPE was introduced through the mouth, and advanced to the duodenum and used to inject contrast into the bile duct. The ERCP was accomplished without difficulty. The patient tolerated the procedure well. Findings: A purchasing clerk film of the abdomen was obtained. Surgical clips, consistent with a previous cholecystectomy, were seen in the area of the right upper quadrant of the abdomen. The esophagus was successfully intubated under direct vision. The scope was advanced to a normal major papilla in the descending duodenum without detailed examination of the pharynx, larynx and associated structures, and upper GI tract. The upper GI tract was grossly normal. A biliary sphincterotomy had been performed. The sphincterotomy appeared stenosed or narrowed. A 0.035 inch straight Acrobat wire was passed into the biliary tree. The Fusion OMNI sphincterotome was passed over the guidewire and the bile duct was then easily deeply cannulated. Contrast was injected. I personally interpreted the bile duct images. Ductal flow of contrast was adequate. Image quality was adequate. Contrast extended to the main bile duct. The main bile duct was mildly dilated. The largest diameter was 9 mm. The lower third of the main bile duct contained filling defect(s) thought to be a stone. Decision was not to extend the sphincterotomy in view Coumadin use. Dilation of the common bile duct/ papilla with an 8 mm balloon dilator was successful. The biliary tree was swept with an 8.5 mm balloon starting at the bifurcation. A few stones and sludge were removed. No stones remained. Small amount of pus was swept from the duct. One 8.5 Fr by 7 cm plastic stent with a single external flap and a single internal flap was placed into the common bile duct. Bile flowed through the stent. The stent was in good position. PD was not cannulated nor injected with contrast. Indomethacin 100mg rectally given after the procedure to reduce the risk of PEP. Impression: - Prior biliary sphincterotomy appeared stenosed or narrowed. - A filling defect consistent with a stone was seen on the cholangiogram. - The entire main bile duct was mildly dilated. - Choledocholithiasis was found. Complete removal was accomplished by dilation of the papilla and balloon extraction. - Small amount of Pus noted consistent with ascending cholangitis. - One plastic stent was placed into the common bile duct. Recommendation: - [facility] care. - Clear liquid diet today. - Continue IV Hydration. - Continue IV ABx while in the hospital. - Can change to Cipro (ciprofloxacin) 500 mg PO BID upon discharge to complete a 10-14 days course. - Check LFTs tomorrow. - Resume Coumadin (warfarin) at prior dose tomorrow. - Repeat ERCP in 6 weeks to remove stent. Yohannes Ho MD 11/11/2017 5:07:20 PM This report has been signed electronically. Note Initiated On: 11/11/2017 2:59 PM I attest to the content of the Intraoperative Record and orders documented therein, exceptions below
[2017-11-11] MEDS ORDERED: NURSING VERBAL MED ORDER ONE (17:26)
[2017-11-11] MEDS ORDERED: LABETALOL HCL IV 5 MG/ML 20ML IV ONE (17:29)
[2017-11-11] MEDS ORDERED: HydrALAZINE HCL 20 MG/ML VIAL ONE (17:40)
[2017-11-11] MEDS ORDERED: HydrALAZINE HCL 20 MG/ML VIAL IV. ONE (17:45)
[2017-11-11] MEDS ORDERED: LABETALOL HCL IV 5 MG/ML 20ML IV PRN (18:00)
--- NOTE | 2017-11-11 18:26 | Anesthesiology Progress Note ---
Anesthesia Post Op Note Date & Time Nov 11, 2017 at 18:25 Vital Signs Pain Intensity: 3 Vital Signs Past 12 Hours Date Time Temp Pulse Resp B/P (MAP) Pulse Ox O2 Delivery O2 Flow Rate FiO2 11/11/17 18:15 69 24 158/82 93 Room Air 11/11/17 18:05 37.1 66 19 139/86 93 Room Air 11/11/17 17:55 60 12 172/86 95 Room Air 11/11/17 17:45 63 18 168/90 93 Room Air 11/11/17 17:35 52 21 172/90 96 Room Air 11/11/17 17:25 90 17 169/94 98 Room Air 11/11/17 17:15 62 16 174/94 96 Room Air 11/11/17 17:05 72 16 180/92 96 Room Air 11/11/17 16:55 77 20 184/95 99 Room Air 11/11/17 16:45 76 20 183/97 94 Nasal Cannula 2 11/11/17 16:38 36.7 96 20 170/83 99 Nasal Cannula 2 11/11/17 12:00 Room Air 11/11/17 11:39 36.6 53 18 117/69 (85) 96 Room Air 11/11/17 08:00 Room Air 11/11/17 07:57 36.6 63 18 113/72 (86) 97 Room Air Notes Mental Status: alert / awake / arousable, participated in evaluation Pt Amnestic to Procedure: Yes Nausea / Vomiting: adequately controlled Pain: adequately controlled Airway Patency, RR, SpO2: stable & adequate BP & HR: stable & adequate Hydration State: stable & adequate Anesthetic Complications: no major complications apparent Patient given modest doses of hydralazine and labetalol for PACU hypertension. She was awake, breathing well, and not complaining of pain.
[2017-11-11] MEDS: CHECK SCOPOLAMINE PATCH PLACEMENT SCH ×2 (19:34→21:32)
[2017-11-12] MEDS: LORAZEPAM 2 MG/ML 1 ML VIAL IV PRN ×3 (01:43→20:21)
[2017-11-12] MEDS: METOCLOPRAMIDE HCL INJ 5 MG/ML 2 ML VIAL IV. PRN ×3 (03:35→17:16)
[2017-11-12] MEDS: MoRPHine SULFATE 4 MG/ML 1 ML CARP\\VIAL IV PRN ×4 (03:35→17:16)
[2017-11-12] MEDS: PIPERACILL/TAZOBAC IV 4.5 GM in NSS 100 ML IV SCH ×3 (03:39→20:15)
[2017-11-12 03:47] VITALS: BP 137/71; PULSE 59; TEMP 36.8; O2SAT 96
[2017-11-12] MEDS: MoRPHine SULFATE 2 MG/ML CARP IV PRN ×4 (06:01→20:21)
[2017-11-12] MEDS: ONDANSETRON INJ 2 MG/ML 2 ML VIAL IV PRN ×2 (06:01→13:18)
[2017-11-12] MEDS: SODIUM CHLORIDE 0.9% 1000ML 1,000 ML IV SCH ×2 (06:42→14:38)
[2017-11-12 07:32] VITALS: BP 120/66; PULSE 45; TEMP 36.6; O2SAT 97
[2017-11-12] MEDS: BUDESONIDE/FORMOTEROL FUMARATE 160/4.5 60 PUFFS/INHALER INH SCH ×2 (07:49→20:22)
[2017-11-12] MEDS: CHECK SCOPOLAMINE PATCH PLACEMENT SCH ×2 (07:53→15:35)
[2017-11-12 08:05] LABS: INR 1.1 (0.9-1.1)
[2017-11-12 08:11] LABS: HEMATOCRIT 26.9 % (37-47); HEMOGLOBIN 7.9 g/dL (12.0-16.0); MEAN CORPUSCULAR HEMOGLOBIN 20.8 pg (25-34); MEAN CORPUSCULAR HGB CONC 29.4 g/dl (32-36); MEAN PLATELET VOLUME 9.6 fL (7.4-10.4); PLATELET COUNT 345 K/uL (130-400); RED CELL DISTRIBUTION WIDTH CV 18.7 % (11.5-14.5); WHITE BLOOD COUNT 9.66 K/uL (4.8-10.8)
--- NOTE | 2017-11-12 08:25 | Anesthesiology Progress Note ---
Anesthesia Post Op Note Date & Time Nov 12, 2017 at 08:24 Vital Signs Pain Intensity: 3.0 Vital Signs Past 12 Hours Date Time Temp Pulse Resp B/P (MAP) Pulse Ox O2 Delivery O2 Flow Rate FiO2 11/12/17 07:32 36.6 45 18 120/66 (84) 97 11/12/17 04:00 Room Air 11/12/17 03:47 36.8 59 18 137/71 (93) 96 11/11/17 23:59 36.8 59 18 113/67 (82) 95 11/11/17 23:59 Room Air Notes Mental Status: alert / awake / arousable, participated in evaluation Pt Amnestic to Procedure: Yes Nausea / Vomiting: adequately controlled Pain: adequately controlled Airway Patency, RR, SpO2: stable & adequate BP & HR: stable & adequate Hydration State: stable & adequate Anesthetic Complications: no major complications apparent pt c/o nausea without emesis yesterday and today. however she reported complaining of this pre-surgery. patient has scopolamine patch on and is receiving doses of reglan and zofran with her prn morphine which she reports is controlling nausea.
[2017-11-12 08:35] LABS: ALBUMIN 2.8 gm/dl (3.4-5.0); CALCIUM 8.3 mg/dl (8.5-10.1); CREATININE 0.55 mg/dl (0.60-1.20); POTASSIUM 3.9 mmol/L (3.5-5.1)
[2017-11-12 08:41] LABS: TOTAL PROTEIN 6.9 gm/dl (6.4-8.2)
[2017-11-12] MEDS: IPRATROPIUM BROMIDE/ALBUTEROL respimat INH INH PRN (08:46)
[2017-11-12] MEDS: PANTOprazole INJ 40 MG in SYRINGE 0 ML IV SCH (10:43)
[2017-11-12 11:30] VITALS: BP 111/68; PULSE 53; TEMP 36.8; O2SAT 94
--- NOTE | 2017-11-12 11:59 | Gastroenterology Progress Note ---
Progress Note Date of Service: Nov 12, 2017 Subjective Pt evaluation today including: conversation w/ patient, physical exam, chart review, lab review, review of studies, review of inpatient medication list Ms Sheppard is post procedure day # 1 from ERCP with stone extraction. LFTs improving: T Bili 1.5 on arrival (0.6 today), AST 207 on arrival (107 today), ALT 370 (291 today), Alk Phos 242 (222 today). Pt reports nausea (no vomiting), resolved with alternating phenergan/zofran and reports pain up to a level 7 at the end of her dosing interval, though pain is a diffuse lower abdomen discomfort. No epigastric pain or back pain. Although she reports pain and nausea, she is up ambulating in her room, doing more self care in the bathroom w/o assistance. Review of Systems Constitutional: No fever Respiratory: No cough Cardiac: No chest pain Abdomen: + pain, + nausea, + constipation (chronic, most recent BM was yesterday), No vomiting, No diarrhea Female : No dysuria Neuro: No memory loss Psych: No depression symptoms Heme: No abnormal bleeding/bruising Endo: No fatigue Skin: No rash, No jaundice Medications Current Inpatient Medications Medications (Trade) Dose Ordered Sig/Johnathan Route Start Time Stop Time Status Last Admin Dose Admin Ioversol (Optiray 320) 125 ml UD PRN IV 11/10/17 12:15 11/14/17 12:14 Sodium Chloride 1,000 ml @ 150 mls/hr Q6H40M IV 11/10/17 16:15 12/10/17 16:14 11/12/17 06:42 150 MLS/HR Miscellaneous Information (Consult) 1 ea UD PRN N/A 11/10/17 15:00 12/10/17 14:59 Budesonide/ Formoterol Fumarate (Symbicort 160/ 4.5 Inh) 2 puffs BID INH 11/10/17 21:00 12/10/17 20:59 11/12/17 07:49 2 PUFFS Albuterol/ Ipratropium (Combivent Respimat Inh) 2 puffs Q2H PRN INH 11/10/17 15:00 12/10/17 14:59 11/12/17 08:46 2 PUFFS Albuterol/ Ipratropium (Duoneb) 3 ml Q4 PRN INH 11/10/17 15:00 12/10/17 14:59 Lorazepam (Ativan Inj) 0.5 mg Q4H PRN IV 11/10/17 15:00 12/10/17 14:59 11/12/17 08:18 0.5 MG Morphine Sulfate (MoRPHine SULFATE INJ) 2 mg Q4H PRN IV 11/10/17 15:00 11/24/17 14:59 11/12/17 10:43 2 MG Morphine Sulfate (MoRPHine SULFATE INJ) 4 mg Q4H PRN IV 11/10/17 15:00 11/24/17 14:59 11/12/17 07:49 4 MG Pantoprazole Sodium 40 mg/ Syringe 10 ml @ 5 mls/min DAILY@11 IV 11/11/17 11:00 12/11/17 10:59 11/12/17 10:43 5 MLS/MIN Ondansetron HCl (Zofran Inj) 4 mg Q4H PRN IV 11/10/17 15:15 12/10/17 15:14 11/12/17 06:01 4 MG Piperacillin Sod/ Tazobactam Sod 4.5 gm/Sodium Chloride 120 ml @ 30 mls/hr Q8@0400,1200,2000 IV 11/10/17 20:00 11/20/17 19:59 11/12/17 10:43 30 MLS/HR Metoclopramide HCl (Reglan Inj) 10 mg Q6H PRN IV. 11/10/17 17:30 12/10/17 17:29 11/12/17 10:43 10 MG Miscellaneous (Remove Transderm-Scop Patch) 1.5 ea Q48H N/A 11/14/17 07:59 11/14/17 08:00 Miscellaneous Information (Check Scopolamine Patch Placement) 1 ea QS N/A 11/11/17 16:00 11/13/17 15:59 11/12/17 07:53 1 EA Objective Vital Signs Date Time Temp Pulse Resp B/P (MAP) Pulse Ox O2 Delivery O2 Flow Rate FiO2 11/12/17 11:30 36.8 53 18 111/68 (82) 94 11/12/17 08:00 Room Air 11/12/17 07:32 36.6 45 18 120/66 (84) 97 11/12/17 04:00 Room Air 11/12/17 03:47 36.8 59 18 137/71 (93) 96 11/11/17 23:59 36.8 59 18 113/67 (82) 95 11/11/17 23:59 Room Air 11/11/17 20:00 36.7 49 16 131/ (43) 94 Room Air 11/11/17 20:00 Room Air 11/11/17 20:00 36.7 49 20 131/61 (84) 94 Room Air 11/11/17 18:35 36.8 68 22 157/87 (110) 98 Room Air 11/11/17 18:15 69 24 158/82 93 Room Air 11/11/17 18:05 37.1 66 19 139/86 93 Room Air 11/11/17 17:55 60 12 172/86 95 Room Air 11/11/17 17:45 63 18 168/90 93 Room Air 11/11/17 17:35 52 21 172/90 96 Room Air 11/11/17 17:25 90 17 169/94 98 Room Air 11/11/17 17:15 62 16 174/94 96 Room Air 11/11/17 17:05 72 16 180/92 96 Room Air 11/11/17 16:55 77 20 184/95 99 Room Air 11/11/17 16:45 76 20 183/97 94 Nasal Cannula 2 11/11/17 16:38 36.7 96 20 170/83 99 Nasal Cannula 2 11/11/17 12:00 Room Air Physical Exam General Appearance: no apparent distress, + obese Neck: no adenopathy, thyroid normal, no JVD Respiratory/Chest: lungs clear Cardiovascular: regular rate, rhythm, no JVD, no murmur Abdomen: soft, + tenderness (mild diffuse tenderness throughout) Extremities: normal inspection, no pedal edema Neurologic/Psych: alert, normal mood/affect, oriented x 3 Skin: no jaundice Laboratory Results Last 24 Hours Test 11/12/17 06:53 White Blood Count 9.66 K/uL Red Blood Count 3.79 M/uL Hemoglobin 7.9 g/dL Hematocrit 26.9 % Mean Corpuscular Volume 71.0 fL Mean Corpuscular Hemoglobin 20.8 pg Mean Corpuscular Hemoglobin Concent 29.4 g/dl RDW Standard Deviation 49.0 fL RDW Coefficient of Variation 18.7 % Platelet Count 345 K/uL Mean Platelet Volume 9.6 fL Prothrombin Time 11.2 SECONDS Prothromb Time International Ratio 1.1 Sodium Level 138 mmol/L Potassium Level 3.9 mmol/L Chloride Level 107 mmol/L Carbon Dioxide Level 23 mmol/L Anion Gap 9.0 mmol/L Blood Urea Nitrogen 10 mg/dl Creatinine 0.55 mg/dl Est Creatinine Clear Calc Drug Dose 205.2 ml/min Estimated GFR () 131.3 Estimated GFR (Non- 113.3 BUN/Creatinine Ratio 17.2 Random Glucose 110 mg/dl Calcium Level 8.3 mg/dl Total Bilirubin 0.6 mg/dl Direct Bilirubin 0.3 mg/dl Aspartate Amino Transf (AST/SGOT) 107 U/L Alanine Aminotransferase (ALT/SGPT) 291 U/L Alkaline Phosphatase 222 U/L Total Protein 6.9 gm/dl Albumin 2.8 gm/dl Lipase 68 U/L Assessment and Plan Ms. Sheppard is a 47 yr old female who is post procedure day #1 from ERCP for stone extraction. There was evidence of cholangitis on arrival (fever), no w/o fever or leukocytosis. Plan: 1. Clear liquids po today - small sips. 2. Continue ambulating to prevent complications. 3. Minimize pain med use if possible. 4. Would continue antibiotics, total of 7 days. Changing from Zosyn to Cipro at time of discharge would be acceptable. 5. Will continue to follow. I have seen , examined and agree with the plan as outlined by FE Julien as above. -exam reveals soft abd -Labs all look improved except for hemoglobin which is declines, without signs of bleeding. Certainly could be dilutional She is actually constipated and not having melena and no sphincterotomy performed. -Continue liquid diet symptomatic care as well as antibiotics -Will follow -Call with any change in clinical status
[2017-11-12] MEDS ORDERED: NURSING VERBAL MED ORDER ONE (14:00)
--- NOTE | 2017-11-12 14:24 | Hospitalist Progress Note ---
Hospitalist Progress Note Date of Service Nov 12, 2017. (Eugene Arana CRNP) Subjective Pt evaluation today including: conversation w/ patient, physical exam, chart review, lab review, review of studies, conversation w/ loan consultant, review of inpatient medication list Pain: still having lower quadrant abdominal pain PO Intake: advanced to clear liquids today, some nausea Voiding: no voiding problems morphine is helping with pain, but pain seems lower today. some nausea with clear liquids Constitutional: No see HPI, No fever, No chills, No sweats, No weight loss, No weakness, No fatigue, No problem reported Eyes: No see HPI, No worsening of vision, No eye pain, No redness, No discharge, No diplopia, No problem reported ENT: No see HPI, No hearing loss, No unusual epistaxis, No nasal symptoms, No sore throat, No tinnitus, No dental problems, No trouble swallowing, No problem reported Respiratory: No see HPI, No cough, No sputum, No wheezing, No shortness of breath, No dyspnea on exertion, No dyspnea at rest, No hemoptysis, No problem reported Cardiovascular: No see HPI, No chest pain, No orthopnea, No PND, No edema, No claudication, No palpitations, No problem reported Breast: No see HPI, No breast lump, No change in shape, No nipple discharge , No breast pain, No problem reported Abdomen: + pain, + nausea Musculoskeletal: No see HPI, No joint pain, No muscle pain, No swelling, No calf pain, No problem reported Female : No see HPI, No dysuria, No urinary frequency, No hematuria, No incontinence, No abnormal vaginal bleeding, No vaginal discharge, No problem reported Neurologic: No see HPI, No memory loss, No paralysis, No weakness, No numbness/tingling, No vertigo, No balance problems, No problem reported Heme: No see HPI, No abnormal bleeding/bruising, No clotting problems, No swollen lymph nodes, No night sweats, No problem reported (Eugene Arana CRNP) Medications reviewed (Eugene Arana CRNP) Objective Vital Signs Date Time Temp Pulse Resp B/P (MAP) Pulse Ox O2 Delivery O2 Flow Rate FiO2 11/12/17 11:30 36.8 53 18 111/68 (82) 94 11/12/17 08:00 Room Air 11/12/17 07:32 36.6 45 18 120/66 (84) 97 11/12/17 04:00 Room Air 11/12/17 03:47 36.8 59 18 137/71 (93) 96 11/11/17 23:59 36.8 59 18 113/67 (82) 95 11/11/17 23:59 Room Air 11/11/17 20:00 36.7 49 16 131/ (43) 94 Room Air 11/11/17 20:00 Room Air 11/11/17 20:00 36.7 49 20 131/61 (84) 94 Room Air 11/11/17 18:35 36.8 68 22 157/87 (110) 98 Room Air 11/11/17 18:15 69 24 158/82 93 Room Air 11/11/17 18:05 37.1 66 19 139/86 93 Room Air 11/11/17 17:55 60 12 172/86 95 Room Air 11/11/17 17:45 63 18 168/90 93 Room Air 11/11/17 17:35 52 21 172/90 96 Room Air 11/11/17 17:25 90 17 169/94 98 Room Air 11/11/17 17:15 62 16 174/94 96 Room Air 11/11/17 17:05 72 16 180/92 96 Room Air 11/11/17 16:55 77 20 184/95 99 Room Air 11/11/17 16:45 76 20 183/97 94 Nasal Cannula 2 11/11/17 16:38 36.7 96 20 170/83 99 Nasal Cannula 2 (Eugene Arana ., DIE PRESSER) Physical Exam General Appearance: no apparent distress Eyes: normal inspection ENT: hearing grossly normal, pharynx normal Neck: supple Respiratory/Chest: lungs clear, normal breath sounds Cardiovascular: regular rate, rhythm, no edema, no murmur Abdomen: normal bowel sounds, soft, + tenderness (lower abdomen - diffuse) Extremities: non-tender, normal inspection Neurologic/Psychiatric: alert, normal mood/affect, oriented x 3 Skin: normal color, warm/dry (Eugene Arana ., DIE PRESSER) Laboratory Results Last 24 Hours Test 11/12/17 06:53 White Blood Count 9.66 K/uL Red Blood Count 3.79 M/uL Hemoglobin 7.9 g/dL Hematocrit 26.9 % Mean Corpuscular Volume 71.0 fL Mean Corpuscular Hemoglobin 20.8 pg Mean Corpuscular Hemoglobin Concent 29.4 g/dl RDW Standard Deviation 49.0 fL RDW Coefficient of Variation 18.7 % Platelet Count 345 K/uL Mean Platelet Volume 9.6 fL Prothrombin Time 11.2 SECONDS Prothromb Time International Ratio 1.1 Sodium Level 138 mmol/L Potassium Level 3.9 mmol/L Chloride Level 107 mmol/L Carbon Dioxide Level 23 mmol/L Anion Gap 9.0 mmol/L Blood Urea Nitrogen 10 mg/dl Creatinine 0.55 mg/dl Est Creatinine Clear Calc Drug Dose 205.2 ml/min Estimated GFR () 131.3 Estimated GFR (Non- 113.3 BUN/Creatinine Ratio 17.2 Random Glucose 110 mg/dl Calcium Level 8.3 mg/dl Total Bilirubin 0.6 mg/dl Direct Bilirubin 0.3 mg/dl Aspartate Amino Transf (AST/SGOT) 107 U/L Alanine Aminotransferase (ALT/SGPT) 291 U/L Alkaline Phosphatase 222 U/L Total Protein 6.9 gm/dl Albumin 2.8 gm/dl Lipase 68 U/L (Eugene Arana, FE) Diagnostic Results ERCP BILIARY DUCTAL CLINICAL HISTORY: 47 years-old Female presenting with EXPLORE DUCTS. TECHNIQUE: Fluoroscopy was provided for an intraoperative cholangiogram status post cholecystectomy. Contrast was injected through the cystic duct remnant. COMPARISON: Ultrasound from 11/10/2017 and MRCP from 11/11/2017. FINDINGS: An endoscope projects over the descending duodenum. A catheter was introduced over guidewire into the common bile duct. The bile ducts were opacified with contrast demonstrating mild intrahepatic and extrahepatic biliary ductal dilatation. The cystic duct remnant was nondilated. Postsurgical changes of cholecystectomy. Apparent filling defect within the common duct at the level of the pancreatic head. This was subsequently cleared with a balloon. Fluoroscopy dosage (mGy): 89.3. Fluoroscopy time: 134.3 seconds. Number of fluoroscopic spot images: 6. IMPRESSION: Fluoroscopy provided for an intraprocedural cholangiogram for clearance of choledocholithiasis. MRCP CLINICAL HISTORY: pain, elevated LFTs, r/o choledocholithiasis TECHNIQUE: MRCP of the abdomen was performed without intravenous contrast according to standard departmental protocol. COMPARISON STUDY: Abdomen and pelvis CT 11/10/2017. FINDINGS: The lung bases are clear. No hepatic or splenic masses. The adrenal glands, kidneys, and pancreas are unremarkable. The main pancreatic duct is normal in course and caliber. The common bile duct is mildly distended measuring up to 1 cm. Prior cholecystectomy. There is a 9 mm obstructing stone within the distal common bile duct. There is also minimal intrahepatic bile duct dilatation. IMPRESSION: A 9 mm stone within the distal common bile duct resulting in mild bile duct dilatation. (Eugene Arana ., FE) Assessment and Plan Patient is a 47 year old female presenting with epigastric mild right upper quadrant abdominal pain in the setting of elevated LFTs, elevated white count, and concern for biliary obstruction with possible ascending cholangitis. 1. SIRS with no clear source of infection - possible ascending cholangitis - afebrile, WBC normalized. Normotensive and no longer tachycardic - appreciate GI input. they recommend continuing Zosyn on in patient, then d/c on cipro for a total of 7 days 2. choledocholithiasis - s/p ERCP with stone retrieval/stent 3. Abdominal pain - pain is not as intense - Morphine IV is controlling pain. encouraged to ambulate and not rely on IV pain meds as much as possible 4. Elevated transaminase - likely secondary to choledocholithiasis -improving - AST 757 to 207 to 107, ALT 562 to 370 to 291. ALK phos also elevated and improving. Lipase post procedure was 68 5. Hx of PE on coumadin. was given vit K. Coumadin on hold. should be able to resume tomorrow. 6. DVT prophylaxis will be with coumadin when resumed. 7. ELS one more day, advance diet. Plan Agree with IV antibiotics, also order blood cultures. IV fluids and resuscitation N.p.o. Pain control Although her imaging at this point does not reveal overt biliary obstruction, she has a very classical presentation. Will discuss with biliary endoscopist, consider MRCP tonight, reverse INR, and we will plan on ERCP tentatively tomorrow or Wednesday pending her clinical course. If she begins to have hemodynamic parameter changes including hypotension and please contact GI and will expedite procedure. Please call with questions or concerns and any clinical change Continued [facility] stay due to: multiple IV medications needed Discharge planning: home (Eugene Arana .ARABELLA Physician Supervision Note: I interviewed and examined the patient. Discussed with Eugene MIRAMONTES and agree with findings and plan as documented in the note. Any exceptions or clarifications are listed here: None Patient continues to improve after ERCP washout sphincterotomy and stent placement for ascending cholangitis for microlithiasis she is able to tolerate small amounts of liquid diet vitals remained stable, lungs clear abdomen is with improving bowel sounds but remains mildly tender Ascending cholangitis from microlithiasis or sphincter stenosis status post ERCP washout continuing parenteral antibiotics pain control and surveillance for pancreatitis as per GI recommendations will eventually transition to oral antibiotics patient would likely need to remain hospitalized due to inability of tolerating progressive diet at this point Documented By: Charli Gant (Charli Gant M.D.)
[2017-11-12 15:16] VITALS: BP 117/69; PULSE 56; TEMP 36.9; O2SAT 94
[2017-11-12 19:34] VITALS: BP 151/84; PULSE 59; TEMP 36.8; O2SAT 96
[2017-11-12 22:58] VITALS: BP 121/74; PULSE 61; TEMP 36.6; O2SAT 96
[2017-11-13] MEDS: MoRPHine SULFATE 4 MG/ML 1 ML CARP\\VIAL IV PRN ×5 (00:27→20:14)
[2017-11-13] MEDS: PIPERACILL/TAZOBAC IV 4.5 GM in NSS 100 ML IV SCH ×3 (02:58→20:14)
[2017-11-13] MEDS: SODIUM CHLORIDE 0.9% 1000ML 1,000 ML IV SCH ×2 (02:58→18:20)
[2017-11-13 03:50] VITALS: BP 132/76; PULSE 54; TEMP 36.8; O2SAT 97
[2017-11-13 07:04] LABS: HEMATOCRIT 26.3 % (37-47); HEMOGLOBIN 7.9 g/dL (12.0-16.0); MEAN CELL VOLUME 71.3 fL (80-100); MEAN CORPUSCULAR HEMOGLOBIN 21.4 pg (25-34); MEAN PLATELET VOLUME 9.5 fL (7.4-10.4); PLATELET COUNT 381 K/uL (130-400); RED CELL DISTRIBUTION WIDTH CV 18.8 % (11.5-14.5); RED CELL DISTRIBUTION WIDTH SD 48.6 fL (36.4-46.3); WHITE BLOOD COUNT 9.79 K/uL (4.8-10.8)
[2017-11-13 07:16] VITALS: BP 125/79; PULSE 52; TEMP 36.8; O2SAT 96
[2017-11-13 07:34] LABS: ALBUMIN 2.8 gm/dl (3.4-5.0); CALCIUM 8.4 mg/dl (8.5-10.1); CREATININE 0.63 mg/dl (0.60-1.20); POTASSIUM 3.6 mmol/L (3.5-5.1)
[2017-11-13 07:36] LABS: TOTAL PROTEIN 6.9 gm/dl (6.4-8.2)
[2017-11-13] MEDS: LORAZEPAM 2 MG/ML 1 ML VIAL IV PRN ×2 (07:45→20:14)
[2017-11-13] MEDS: BUDESONIDE/FORMOTEROL FUMARATE 160/4.5 60 PUFFS/INHALER INH SCH ×2 (07:53→23:31)
[2017-11-13] MEDS: CHECK SCOPOLAMINE PATCH PLACEMENT SCH ×2 (07:54)
--- NOTE | 2017-11-13 10:28 | Gastroenterology Progress Note ---
Progress Note Date of Service: Nov 13, 2017 Subjective Pt evaluation today including: conversation w/ patient, conversation w/ family States she has improved no nausea overnight but now has had orange frequent diarrhea feelings of her stomach rumbling but no abdominal pain. Review of Systems Constitutional: No see HPI, No fever, No chills, No sweats, No weight loss, No weakness, No fatigue, No problem reported Eyes: No see HPI, No worsening of vision, No eye pain, No redness, No discharge , No diplopia, No problem reported ENT: No see HPI, No hearing loss, No unusual epistaxis, No nasal symptoms, No sore throat, No tinnitus, No dental problems, No trouble swallowing, No pain on swallowing, No problem reported Respiratory: No see HPI, No cough, No sputum, No wheezing, No shortness of breath, No dyspnea on exertion, No dyspnea at rest, No hemoptysis, No problem reported Cardiac: No see HPI, No chest pain, No orthopnea, No PND, No edema, No claudication, No palpitations, No problem reported Abdomen: No see HPI, No pain, No nausea, No vomiting, No diarrhea, No constipation, No GI bleeding, No dysphagia, No odynophagia, No acolic stools, No jaundice, No dark urine, No problem reported Musculoskeletal: No see HPI, No joint pain, No muscle pain, No swelling, No calf pain, No problem reported Female : No see HPI, No dysuria, No urinary frequency, No hematuria, No incontinence, No abnormal vaginal bleeding, No vaginal discharge, No problem reported Medications Current Inpatient Medications Medications (Trade) Dose Ordered Sig/[facility] Route Start Time Stop Time Status Last Admin Dose Admin Ioversol (Optiray 320) 125 ml UD PRN IV 11/10/17 12:15 11/14/17 12:14 Sodium Chloride 1,000 ml @ 80 mls/hr [id number] IV 11/10/17 16:15 12/10/17 16:14 11/13/17 02:58 80 MLS/HR Miscellaneous Information (Consult) 1 ea UD PRN N/A 11/10/17 15:00 12/10/17 14:59 Budesonide/ Formoterol Fumarate (Symbicort 160/ 4.5 Inh) 2 puffs BID INH 11/10/17 21:00 12/10/17 20:59 11/13/17 07:53 2 PUFFS Albuterol/ Ipratropium (Combivent Respimat Inh) 2 puffs Q2H PRN INH 11/10/17 15:00 12/10/17 14:59 11/12/17 08:46 2 PUFFS Albuterol/ Ipratropium (Duoneb) 3 ml Q4 PRN INH 11/10/17 15:00 12/10/17 14:59 Lorazepam (Ativan Inj) 0.5 mg Q4H PRN IV 11/10/17 15:00 12/10/17 14:59 11/13/17 07:45 0.5 MG Morphine Sulfate (MoRPHine SULFATE INJ) 2 mg Q4H PRN IV 11/10/17 15:00 11/24/17 14:59 11/12/17 20:21 2 MG Morphine Sulfate (MoRPHine SULFATE INJ) 4 mg Q4H PRN IV 11/10/17 15:00 11/24/17 14:59 11/13/17 07:50 4 MG Pantoprazole Sodium 40 mg/ Syringe 10 ml @ 5 mls/min DAILY@11 IV 11/11/17 11:00 12/11/17 10:59 11/12/17 10:43 5 MLS/MIN Ondansetron HCl (Zofran Inj) 4 mg Q4H PRN IV 11/10/17 15:15 12/10/17 15:14 11/12/17 13:18 4 MG Piperacillin Sod/ Tazobactam Sod 4.5 gm/Sodium Chloride 120 ml @ 30 mls/hr Q8@0400,1200,2000 IV 11/10/17 20:00 11/20/17 19:59 11/13/17 02:58 30 MLS/HR Metoclopramide HCl (Reglan Inj) 10 mg Q6H PRN IV. 11/10/17 17:30 12/10/17 17:29 11/12/17 17:16 10 MG Miscellaneous (Remove Transderm-Scop Patch) 1.5 ea Q48H N/A 11/14/17 07:59 11/14/17 08:00 Miscellaneous Information (Check Scopolamine Patch Placement) 1 ea QS N/A 11/11/17 16:00 11/13/17 15:59 11/13/17 07:54 1 EA Objective Vital Signs Date Time Temp Pulse Resp B/P (MAP) Pulse Ox O2 Delivery O2 Flow Rate FiO2 11/13/17 08:00 Room Air 11/13/17 07:16 36.8 52 18 125/79 (94) 96 Room Air 11/13/17 04:19 Room Air 11/13/17 03:50 36.8 54 17 132/76 (94) 97 Room Air 11/13/17 00:00 Room Air 11/12/17 22:58 36.6 61 19 121/74 (90) 96 Room Air 11/12/17 20:00 Room Air 11/12/17 19:34 36.8 59 20 151/84 (106) 96 Room Air 11/12/17 16:00 Room Air 11/12/17 15:16 36.9 56 18 117/69 (85) 94 Room Air 11/12/17 12:00 Room Air 11/12/17 11:30 36.8 53 18 111/68 (82) 94 Physical Exam General Appearance: + obese ENT: normal ENT inspection Neck: supple, no adenopathy Respiratory/Chest: chest non-tender, lungs clear Cardiovascular: regular rate, rhythm, no edema, no gallop Abdomen: normal bowel sounds, non tender, soft Extremities: normal range of motion, non-tender 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 Laboratory Results Last 24 Hours Test 11/13/17 06:27 White Blood Count 9.79 K/uL Red Blood Count 3.69 M/uL Hemoglobin 7.9 g/dL Hematocrit 26.3 % Mean Corpuscular Volume 71.3 fL Mean Corpuscular Hemoglobin 21.4 pg Mean Corpuscular Hemoglobin Concent 30.0 g/dl RDW Standard Deviation 48.6 fL RDW Coefficient of Variation 18.8 % Platelet Count 381 K/uL Mean Platelet Volume 9.5 fL Prothrombin Time 10.2 SECONDS Prothromb Time International Ratio 1.0 Sodium Level 138 mmol/L Potassium Level 3.6 mmol/L Chloride Level 107 mmol/L Carbon Dioxide Level 25 mmol/L Anion Gap 6.0 mmol/L Blood Urea Nitrogen 11 mg/dl Creatinine 0.63 mg/dl Est Creatinine Clear Calc Drug Dose 180.7 ml/min Estimated GFR () 125.6 Estimated GFR (Non- 108.3 BUN/Creatinine Ratio 17.3 Random Glucose 95 mg/dl Calcium Level 8.4 mg/dl Total Bilirubin 0.6 mg/dl Direct Bilirubin 0.2 mg/dl Aspartate Amino Transf (AST/SGOT) 97 U/L Alanine Aminotransferase (ALT/SGPT) 259 U/L Alkaline Phosphatase 218 U/L Total Protein 6.9 gm/dl Albumin 2.8 gm/dl Assessment and Plan Ms. Sheppard is a 47 yr old female who is post procedure day #1 from ERCP for stone extraction. There was evidence of cholangitis on arrival (fever), no w/o fever or leukocytosis. Plan: 1. Advance diet as tolerated 2. Continue ambulating to prevent complications. 3. Minimize pain med use if possible. 4. Would continue antibiotics, total of 7 days. Presumably if C. difficile is normal can change to p.o. Cipro, if C. difficile is positive then we will place on C. difficile treatment and stop treatment for cholangitis. 5. Will continue to follow. 6. Call with questions
[2017-11-13] MEDS: PANTOprazole INJ 40 MG in SYRINGE 0 ML IV SCH (11:46)
[2017-11-13 11:47] VITALS: BP 115/66; PULSE 50; TEMP 36.8; O2SAT 96
[2017-11-13] MEDS: IPRATROPIUM BROMIDE/ALBUTEROL respimat INH INH PRN (15:31)
--- NOTE | 2017-11-13 16:44 | Progress Note ---
Subjective Date of Service: Nov 13, 2017. Subjective this pt is ambulating without difficulty,she is having some abdominal pain but mostly lower and she has some diarrhea, pending C Diff evalaution Problem List Medical Problems: (1) Acute asthma exacerbation Status: Acute (2) Acute bronchitis Status: Acute (3) Anxiety reaction Status: Acute (4) Asthma with exacerbation Status: Acute (5) Exacerbation of asthma Status: Acute (6) Intractable left upper quadrant abdominal pain Status: Acute (7) Pedal edema Status: Acute (8) Post-operative hemorrhage Status: Acute (9) Status asthmaticus Status: Acute (10) Symptomatic anemia Status: Acute (11) Vaginal bleeding Status: Acute Social History Problems: (1) Status post laparoscopic cholecystectomy Status: Acute Review of Systems Constitutional: No fever, No chills, No weakness, No fatigue Respiratory: No cough, No shortness of breath Cardiac: No chest pain, No edema Abdomen: + pain, + diarrhea Musculoskeletal: No joint pain, No muscle pain Objective Vital Signs Date Time Temp Pulse Resp B/P (MAP) Pulse Ox O2 Delivery O2 Flow Rate FiO2 11/13/17 15:08 Room Air 11/13/17 12:00 Room Air 11/13/17 11:47 36.8 50 18 115/66 (82) 96 Room Air 11/13/17 08:00 Room Air 11/13/17 07:16 36.8 52 18 125/79 (94) 96 Room Air 11/13/17 04:19 Room Air 11/13/17 03:50 36.8 54 17 132/76 (94) 97 Room Air 11/13/17 00:00 Room Air 11/12/17 22:58 36.6 61 19 121/74 (90) 96 Room Air 11/12/17 20:00 Room Air 11/12/17 19:34 36.8 59 20 151/84 (106) 96 Room Air Physical Exam General Appearance: WD/WN, + mild distress Eyes: normal inspection, sclerae normal Neck: supple, no JVD Respiratory/Chest: chest non-tender, lungs clear, normal breath sounds Cardiovascular: regular rate, rhythm, no murmur Abdomen: normal bowel sounds, soft, + distended, + tenderness Extremities: no pedal edema, no calf tenderness Laboratory Results Last 24 Hours Test 11/13/17 06:27 White Blood Count 9.79 K/uL Red Blood Count 3.69 M/uL Hemoglobin 7.9 g/dL Hematocrit 26.3 % Mean Corpuscular Volume 71.3 fL Mean Corpuscular Hemoglobin 21.4 pg Mean Corpuscular Hemoglobin Concent 30.0 g/dl RDW Standard Deviation 48.6 fL RDW Coefficient of Variation 18.8 % Platelet Count 381 K/uL Mean Platelet Volume 9.5 fL Prothrombin Time 10.2 SECONDS Prothromb Time International Ratio 1.0 Sodium Level 138 mmol/L Potassium Level 3.6 mmol/L Chloride Level 107 mmol/L Carbon Dioxide Level 25 mmol/L Anion Gap 6.0 mmol/L Blood Urea Nitrogen 11 mg/dl Creatinine 0.63 mg/dl Est Creatinine Clear Calc Drug Dose 180.7 ml/min Estimated GFR () 125.6 Estimated GFR (Non- 108.3 BUN/Creatinine Ratio 17.3 Random Glucose 95 mg/dl Calcium Level 8.4 mg/dl Total Bilirubin 0.6 mg/dl Direct Bilirubin 0.2 mg/dl Aspartate Amino Transf (AST/SGOT) 97 U/L Alanine Aminotransferase (ALT/SGPT) 259 U/L Alkaline Phosphatase 218 U/L Total Protein 6.9 gm/dl Albumin 2.8 gm/dl Assessment and Plan Ascending cholangitis from microlithiasis or sphincter stenosis status post ERCP washout continuing parenteral antibiotics pain control and surveillance for pancreatitis as per GI recommendations will eventually transition to oral antibiotics patient would likely need to remain hospitalized due to inability of tolerating progressive diet at this point H/o PE will restart coumadin once we are assured that we have no issues moving foreward Documented By: Charli Gant Continued [facility] stay due to: multiple IV medications needed Discharge planning: home
[2017-11-13 16:46] VITALS: BP 122/79; PULSE 63; TEMP 36.7; O2SAT 99
[2017-11-13 20:01] VITALS: BP 122/67; PULSE 94; TEMP 36.8; O2SAT 94
[2017-11-13] MEDS ORDERED: NURSING VERBAL MED ORDER ONE (22:00)
[2017-11-13] MEDS: GUAIFENESIN 600 MG TABCR PO PRN (23:31)
[2017-11-14 00:18] VITALS: BP 133/75; PULSE 54; TEMP 37.2; O2SAT 98
[2017-11-14] MEDS: MoRPHine SULFATE 4 MG/ML 1 ML CARP\\VIAL IV PRN ×4 (00:22→12:30)
[2017-11-14 03:54] VITALS: BP 151/75; PULSE 63; TEMP 36.8; O2SAT 95
[2017-11-14] MEDS: PIPERACILL/TAZOBAC IV 4.5 GM in NSS 100 ML IV SCH ×2 (04:17→11:25)
[2017-11-14] MEDS: SODIUM CHLORIDE 0.9% 1000ML 1,000 ML IV SCH (04:17)
[2017-11-14] MEDS: LORAZEPAM 2 MG/ML 1 ML VIAL IV PRN ×3 (04:20→12:29)
[2017-11-14 07:25] VITALS: BP 121/69; PULSE 61; TEMP 36.7; O2SAT 97
[2017-11-14 07:37] LABS: HEMATOCRIT 24.4 % (37-47); HEMOGLOBIN 7.3 g/dL (12.0-16.0); MEAN CELL VOLUME 71.3 fL (80-100); MEAN CORPUSCULAR HEMOGLOBIN 21.3 pg (25-34); MEAN CORPUSCULAR HGB CONC 29.9 g/dl (32-36); MEAN PLATELET VOLUME 8.9 fL (7.4-10.4); PLATELET COUNT 351 K/uL (130-400); RED CELL DISTRIBUTION WIDTH CV 19.2 % (11.5-14.5); RED CELL DISTRIBUTION WIDTH SD 50.2 fL (36.4-46.3); WHITE BLOOD COUNT 8.07 K/uL (4.8-10.8)
[2017-11-14 08:04] LABS: CALCIUM 8.1 mg/dl (8.5-10.1); CREATININE 0.51 mg/dl (0.60-1.20); POTASSIUM 3.4 mmol/L (3.5-5.1)
[2017-11-14] MEDS: BUDESONIDE/FORMOTEROL FUMARATE 160/4.5 60 PUFFS/INHALER INH SCH (08:14)
[2017-11-14] MEDS: GUAIFENESIN 600 MG TABCR PO PRN (08:15)
[2017-11-14] MEDS ORDERED: IRON SUCROSE INJ 100 MG in SODIUM CHLORIDE 0.9% 100ML 100 ML IV SCH (10:30)
[2017-11-14] MEDS: PANTOprazole INJ 40 MG in SYRINGE 0 ML IV SCH (10:57)
--- NOTE | 2017-11-14 11:54 | Gastroenterology Progress Note ---
Progress Note Date of Service: Nov 14, 2017 Subjective Pt evaluation today including: conversation w/ patient, conversation w/ family Feels improved still having loose bowel movements. No signs of bleeding. C. difficile was normal. Having some crampy colicky pain. Less nausea. Review of Systems Constitutional: No see HPI, No fever, No chills, No sweats, No weight loss, No weakness, No fatigue, No problem reported Cardiac: No see HPI, No chest pain, No orthopnea, No PND, No edema, No claudication, No palpitations, No problem reported Abdomen: + see HPI Musculoskeletal: No see HPI, No joint pain, No muscle pain, No swelling, No calf pain, No problem reported Medications Current Inpatient Medications Medications (Trade) Dose Ordered Sig/[facility] Route Start Time Stop Time Status Last Admin Dose Admin Ioversol (Optiray 320) 125 ml UD PRN IV 11/10/17 12:15 11/14/17 12:14 Miscellaneous Information (Consult) 1 ea UD PRN N/A 11/10/17 15:00 12/10/17 14:59 Budesonide/ Formoterol Fumarate (Symbicort 160/ 4.5 Inh) 2 puffs BID INH 11/10/17 21:00 12/10/17 20:59 11/14/17 08:14 2 PUFFS Albuterol/ Ipratropium (Combivent Respimat Inh) 2 puffs Q2H PRN INH 11/10/17 15:00 12/10/17 14:59 11/13/17 15:31 2 PUFFS Albuterol/ Ipratropium (Duoneb) 3 ml Q4 PRN INH 11/10/17 15:00 12/10/17 14:59 Lorazepam (Ativan Inj) 0.5 mg Q4H PRN IV 11/10/17 15:00 12/10/17 14:59 11/14/17 08:28 0.5 MG Morphine Sulfate (MoRPHine SULFATE INJ) 2 mg Q4H PRN IV 11/10/17 15:00 11/24/17 14:59 11/12/17 20:21 2 MG Morphine Sulfate (MoRPHine SULFATE INJ) 4 mg Q4H PRN IV 11/10/17 15:00 11/24/17 14:59 11/14/17 08:28 4 MG Pantoprazole Sodium 40 mg/ Syringe 10 ml @ 5 mls/min DAILY@11 IV 11/11/17 11:00 12/11/17 10:59 11/14/17 10:57 5 MLS/MIN Ondansetron HCl (Zofran Inj) 4 mg Q4H PRN IV 11/10/17 15:15 12/10/17 15:14 11/12/17 13:18 4 MG Piperacillin Sod/ Tazobactam Sod 4.5 gm/Sodium Chloride 120 ml @ 30 mls/hr Q8@0400,1200,2000 IV 11/10/17 20:00 11/20/17 19:59 11/14/17 11:25 30 MLS/HR Metoclopramide HCl (Reglan Inj) 10 mg Q6H PRN IV. 11/10/17 17:30 12/10/17 17:29 11/12/17 17:16 10 MG Guaifenesin (Mucinex Contr Rel Tab) 600 mg BID PRN PO 11/13/17 22:00 12/13/17 21:59 11/14/17 08:15 600 MG Objective Vital Signs Date Time Temp Pulse Resp B/P (MAP) Pulse Ox O2 Delivery O2 Flow Rate FiO2 11/14/17 08:00 Room Air 11/14/17 07:25 36.7 61 18 121/69 (86) 97 Room Air 11/14/17 04:24 Room Air 11/14/17 03:54 36.8 63 19 151/75 (100) 95 Room Air 11/14/17 00:18 37.2 54 18 133/75 (94) 98 Room Air 11/14/17 00:00 Room Air 11/13/17 20:01 36.8 94 22 122/67 (85) 94 Room Air 11/13/17 20:00 Room Air 11/13/17 16:46 36.7 63 20 122/79 (93) 99 Room Air 11/13/17 15:08 Room Air 11/13/17 12:00 Room Air Physical Exam General Appearance: WD/WN, no apparent distress, + pertinent finding (Walking in room with street clothes on) ENT: normal ENT inspection Neck: supple Respiratory/Chest: chest non-tender, lungs clear Cardiovascular: regular rate, rhythm, no edema Abdomen: normal bowel sounds, non tender, soft, no organomegaly Extremities: normal range of motion 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, no motor/sensory deficits Laboratory Results Last 24 Hours Test 11/14/17 06:59 White Blood Count 8.07 K/uL Red Blood Count 3.42 M/uL Hemoglobin 7.3 g/dL Hematocrit 24.4 % Mean Corpuscular Volume 71.3 fL Mean Corpuscular Hemoglobin 21.3 pg Mean Corpuscular Hemoglobin Concent 29.9 g/dl RDW Standard Deviation 50.2 fL RDW Coefficient of Variation 19.2 % Platelet Count 351 K/uL Mean Platelet Volume 8.9 fL Prothrombin Time 10.6 SECONDS Prothromb Time International Ratio 1.0 Sodium Level 141 mmol/L Potassium Level 3.4 mmol/L Chloride Level 106 mmol/L Carbon Dioxide Level 26 mmol/L Anion Gap 9.0 mmol/L Blood Urea Nitrogen 5 mg/dl Creatinine 0.51 mg/dl Est Creatinine Clear Calc Drug Dose 225.4 ml/min Estimated GFR () 134.6 Estimated GFR (Non- 116.1 BUN/Creatinine Ratio 9.2 Random Glucose 81 mg/dl Calcium Level 8.1 mg/dl Assessment and Plan Ms. Sheppard is a 47 yr old female who is post procedure day #1 from ERCP for stone extraction. There was evidence of cholangitis on arrival (fever), no w/o fever or leukocytosis. Plan: 1. Advance diet as tolerated would advance to full liquids or low-fat solids today without issues. 2. Continue ambulating to prevent complications. 3. Minimize pain med use if possible. 4. Would continue antibiotics, total of 7 days. C. difficile is normal, 6. No signs of bleeding but does have an anemia that may be dilutional at least in some component, at the time of ERCP would suggest EGD at the same time and then outpatient colonoscopy. 7. Call with questions
[2017-11-14 12:00] VITALS: BP 138/72; PULSE 56; TEMP 37; O2SAT 100
[2017-11-14] MEDS ORDERED: CIPR-304 PO (13:14)
[2017-11-14] MEDS ORDERED: HYDR-4079 PO (13:14)
--- NOTE | 2017-11-14 13:17 | Discharge Instructions ---
Discharge Instructions Date of Service Nov 14, 2017. Admission Reason for Admission: Cholangitis Discharge Discharge Diagnosis / Problem: cholangitis Discharge Goals Goal(s): Diagnostic testing, Therapeutic intervention Activity Recommendations Activity Limitations: as noted below Lifting Limitations: gradually increase as tolerated . Current Hospital Diet Patient's current hospital diet: Low Fat Diet Discharge Diet Recommended Diet: Regular Diet (bland diet) Procedures Procedures Performed: Endoscopic Retrograde Cholangiopancreatography, Balloon Dilation of Common Bile Duct, Placement of Biliary stent Common Bile Duct Pending Studies Studies pending at discharge: no Medical Emergencies . Who to Call and When: Medical Emergencies: If at any time you feel your situation is an emergency, please call 911 immediately. . Non-Emergent Contact Non-Emergency issues call your: Primary Care Provider, Floor Director Call Non-Emergent contact if: temperature is above 101, your pain is unusual for you . . "Provider Documentation" section prepared by Charli Gant. . Hospitality Specialist Recommendations Hospitality Specialist Recommendations: Please take your higher dose of coumadin and recheck your INR this week on wednesday or wednesday (11/16-)
[2017-11-14 13:31] LABS: HEMATOCRIT 25.8 % (37-47); HEMOGLOBIN 7.9 g/dL (12.0-16.0)
[2017-11-14 13:57] VITALS: BP 138/72; PULSE 56; TEMP 37; O2SAT 100
--- NOTE | 2017-11-14 14:39 | Discharge Summary ---
Discharge Summary Date of Service Nov 14, 2017. Discharge Summary Admission Date: Nov 10, 2017 at 14:52 Discharge Date: Nov 14, 2017 Discharge Disposition: Home Principal Diagnosis: cholangitis, s/p ERCP and CBD stent Immunizations: Have You Had Influenza Vaccine: Yes Influenza Vaccine Date: Jun 06, 2012 History of Tetanus Vaccine?: Yes Tetanus Immunization Date: Dec 06, 2007 History of Pneumococcal: No History of Hepatitis B Vaccine: Yes Hepatitis Immunization Date: Dec 06, 2007 Consultations: Gastroenterology Medication Reconciliation New Medications: Ciprofloxacin HCl (Ciprofloxacin) 500 Mg Tab 500 MG PO BID, #20 DOSE Continued Medications: Alprazolam (Xanax) 2 Mg Tab 2 MG PO HS, TAB Ascorbic Acid (Vitamin C) 1,000 Mg Tab 1000 MG PO DAILY Baclofen (Lioresal) 10 Mg Tab 10 MG PO QPM, TAB Budesonide/Formoterol Fumarate (Symbicort 160/4.5 Inhaler ) Aero 2 PUFFS INH BID, INHALER Cyanocobalamin (Cyanocobalamin) 1,000 Mcg/Ml Inj 1000 MCG SQ WK ON Ergocalciferol (Vitamin D 63949 Unit) 50,000 Unit Cap 59174 UNITS PO WK takes on wednesday Fexofenadine Hcl (Susanne) 180 Mg Tab 180 MG PO QAM, TAB Fluticasone Propionate (Nasal) (Flonase Allergy Relief) 50 Mcg/Act Spr 1 SPRAYS MUKESH BID Furosemide (Lasix) 20 Mg Tab 20 MG PO DAILY PRN for SWELLING, TAB Hydrocodone/Acetaminophen 10MG/325MG ([place] 10MG/325MG) Tab 1 TAB PO Q6H PRN for Pain, #20 TAB (This prescription has been renewed) PRN PAIN Ipratropium-Albuterol (Duoneb) 3 Ml Nebu 1 TREATMENT INH Q4 PRN for COPD, INHA Ipratropium-Albuterol (Combivent Respimat) 1 Aer Aer 2 PUFFS INH Q2H PRN for SOB/Wheezing, INH Montelukast Sodium (Singulair) 10 Mg Tab 10 MG PO HS, TAB Omeprazole (Prilosec) 20 Mg Capcr 20 MG PO QAM, CAP Ranitidine Hcl (Zantac) 150 Mg Tab 150 MG PO HS, TAB Tiotropium [place] (Spiriva Respimat) 1.25 Mcg/Act Aer 1 PUFFS INH BID Warfarin Sodium (Coumadin) 10 Mg Tab 10 MG PO UD, TAB TAKE 10MG ONE DAY AND THE NEXT DAY TAKE 10MG AND THE NEXT DAY TAKE 15MG. REAPEAT THIS CYCLE Zolpidem Tartrate (Ambien) 5 Mg Tab 7.5 MG PO HS, TAB Discontinued Medications: Naproxen (Aleve) 220 Mg Tab 440 MG PO BID, TAB Discharge Exam Review of Systems: Constitutional: No fever, No chills Neurologic: No memory loss, No paralysis, No numbness/tingling Physical Exam: General Appearance: WD/WN, + mild distress Eyes: normal inspection, sclerae normal Neurologic/Psychiatric: alert, oriented x 3 Hospital Course Ascending cholangitis from microlithiasis or sphincter stenosis status post ERCP washout continuing parenteral antibiotics pain control and surveillance for pancreatitis as per GI recommendations will eventually transition to oral antibiotics patient would likely need to remain hospitalized due to inability of tolerating progressive diet at this point H/o PE will restart coumadin and I did discuss that the patient has home monitoring will recommend rechecking INR this week early likely wednesday or wednesday and have further adjustment as antibiotics may make INR go up faster did give work excuse thru 11/21, and did RX home pain medicines outside typical as GI does not want patient to use aleve follow up with pcp in one week Documented By: Charli Gant Total Time Spent: Greater than 30 minutes This includes examination of the patient, discharge planning, medication reconciliation, and communication with other providers. Discharge Instructions Please refer to the electronic Patient Visit Report (Discharge Instructions) for additional information.
--- NOTE | 2017-11-17 09:27 | EDITING REQUIRED CODING QUERY ---
CODING QUERY To promote full compliance with coding requirements relating to patient care, provider participation is requested in all cases of box stacker uncertainty. Please assist us with the question(s) below: Coding Question(s): Please clarify for coding purposes if patient had the following: Sepsis ( ) SIRS ( x ) Unspecified ( ) Other ( ) Physician's Response(s): Thank you Lucy Ramon Principal Diagnosis: "_that condition established after study, to be chiefly responsible for occasioning the admission of the patient to the hospital for care." Co-Existing Principal Diagnosis: "_when two or more diagnoses equally meet the criteria for principal diagnosis as determined by the circumstances of admission, diagnostic work up, and/or therapy provided, and the Alphabetic Index, Tabular List, or another coding guideline does not provide sequencing direction, any one of the diagnoses may be sequenced first." "When the physician has documented what appears to be a current diagnosis in the body of the record, but has not included the diagnosis in the final diagnostic statement, the physician should be asked whether the diagnosis should be added." (Source Coding [facility] 2 QTR90. p3-4)
== END 2017-11-14 14:26 | disposition home or self-care (01) | DRG 445 ==
LOC: C.EDB 07:12 → C.2T 14:52 → ENRESERV 15:00
PROVIDERS: ADMIT Internal Medicine; ATTEND Internal Medicine
PROC: 0FC93ZZ Extirpation of Matter from Common Bile Duct, Percutaneous Approach (ICD-10-PCS; principal; 2017-11-11 10:45)
PROC: BF11YZZ Fluoroscopy of Biliary and Pancreatic Ducts using Other Contrast (ICD-10-PCS; principal; 2017-11-11 10:45)
PROC: 0F793DZ Dilation of Common Bile Duct with Intraluminal Device, Percutaneous Approach (ICD-10-PCS; principal; 2017-11-11 10:45)
DX: K83.0 Cholangitis (principal); Z68.43 Body mass index [BMI] 50.0-59.9, adult; R65.10 Systemic inflammatory response syndrome (SIRS) of non-infectious origin without acute organ dysfunction; K80.20 Calculus of gallbladder without cholecystitis without obstruction; K58.9 Irritable bowel syndrome, unspecified; F41.9 Anxiety disorder, unspecified; J45.909 Unspecified asthma, uncomplicated; J44.9 Chronic obstructive pulmonary disease, unspecified; G89.29 Other chronic pain; M54.9 Dorsalgia, unspecified; E66.9 Obesity, unspecified; Z79.01 Long term (current) use of anticoagulants; Z86.711 Personal history of pulmonary embolism; Z90.49 Acquired absence of other specified parts of digestive tract; Z90.710 Acquired absence of both cervix and uterus; Z83.3 Family history of diabetes mellitus; Z82.49 Family history of ischemic heart disease and other diseases of the circulatory system

== ENCOUNTER → 2017-12-07 | Outpatient (CLI) | payer OTHER ==
[~2017-12-07] MED LIST changes: +ASCO10003 PO; +CIPR-304 PO; -NAPR1TAB9 PO; -OXYC-57 PO; +ZOLP5TAB PO; -ZOLP6.252 PO
[2017-12-07 12:08] LABS: BASO % 0.3 %; BASO ABS # 0.03 K/uL (0-0.2); EOS % 3.7 %; EOS ABS # 0.36 K/uL (0-0.5); HEMATOCRIT 34.8 % (37-47); HEMOGLOBIN 10.6 g/dL (12.0-16.0); IG# 0.02 K/uL (0.00-0.02); LYMPH % 18.5 %; LYMPH ABS # 1.79 K/uL (1.2-3.4); MEAN CELL VOLUME 73.9 fL (80-100); MEAN CORPUSCULAR HEMOGLOBIN 22.5 pg (25-34); MEAN CORPUSCULAR HGB CONC 30.5 g/dl (32-36); MEAN PLATELET VOLUME 9.7 fL (7.4-10.4); MONO % 5.7 %; MONO ABS # 0.55 K/uL (0.11-0.59); NEUT % 71.6 %; NEUT ABS # 6.92 K/uL (1.4-6.5); PLATELET COUNT 388 K/uL (130-400); RED CELL DISTRIBUTION WIDTH CV 22.7 % (11.5-14.5); RED CELL DISTRIBUTION WIDTH SD 61.6 fL (36.4-46.3); RETIC COUNT % 1.4 % (0.5-2.0); WHITE BLOOD COUNT 9.67 K/uL (4.8-10.8)
== END | disposition home or self-care (01) ==
LOC: C.LAB 10:42
PROVIDERS: ATTEND Internal Medicine Pulmonary Disease
DX: D64.9 Anemia, unspecified (principal); E55.9 Vitamin D deficiency, unspecified

== ENCOUNTER 2017-12-24 09:25 | Day surgery (SDC) | payer OTHER ==
[2017-12-16 13:54] VITALS: BMI 51.0
[~2017-12-24] VITALS: Ht 172.7 cm; Wt 151.4 kg
[~2017-12-24 09:25] MED LIST changes: +ATROPINE SULFATE 0.1 MG/ML 5ML SYR IV PRN; -CIPR-304 PO; +EpHEDrine SULFATE INJ 50 MG/ML AMP IV PRN; -HYDR-4079 PO; +HYDROmorphone INJ 0.5 MG/0.5 ML SYR IV PRN; +LABETALOL HCL IV 5 MG/ML 20ML IV PRN; +LACTATED RINGER'S 1000ML 1,000 ML IV SCH; +ONDANSETRON INJ 2 MG/ML 2 ML VIAL IV PRN; +PHENYLEPHRINE 100MCG/ML 5ML SYR IV PRN; +PROMETHAZINE HCL INJ 12.5 MG in SODIUM CHLORIDE 0.9% 50ML 50 ML IV PRN
[2017-12-24] MEDS ORDERED: WARF10TA4 PO (10:04)
[2017-12-24 10:05] VITALS: BP 125/54; PULSE 65; TEMP 36.9; O2SAT 98; Ht 172.7 cm; Wt 151.4 kg
[2017-12-24] MEDS ORDERED: ENOX40IN SQ (10:10)
[2017-12-24] MEDS ORDERED: SCOPOLAMINE 1.5 MG TDSY TD SCH (10:30)
[2017-12-24] MEDS ORDERED: SCOPOLAMINE 1.5 MG TDSY TD ONE (10:30)
[2017-12-24] MEDS ORDERED: SUCCINYLCHOLINE CHLORIDE 20 MG/ML 10 ML VIAL IV ONE (11:29)
[2017-12-24] MEDS ORDERED: LIDOCAINE HCL 2% 2 ML VIAL (20MG/ML) ONE (11:29)
[2017-12-24] MEDS ORDERED: DEXAMETHASONE SOD INJ 4 MG/ML VIAL ONE (11:29)
[2017-12-24] MEDS ORDERED: ONDANSETRON INJ 2 MG/ML 2 ML VIAL ONE (11:29)
[2017-12-24] MEDS ORDERED: PROPOFOL IV EMULSION 10 MG/ML 20 ML VIAL ONE ×2 (11:29→12:46)
[2017-12-24] MEDS ORDERED: FENTANYL CITRATE INJ 50 MCG/1 ML 2 ML VIAL ONE ×3 (11:30→11:31)
--- NOTE | 2017-12-24 12:09 | Endo History and Physical ---
History & Physical Date of Service: December 24, 2017. Chief Complaint: Referring Physician: History of Present Illness ERCP for stent removal Past Medical History Arthritis, Asthma, Pulmonary Emboli, Anxiety, Reflux, Gynecological Problems, COPD Past Surgical History Hx Cardiac Surgery: No Hx Abdominal Surgery: Yes (APPY; KEO; UMBILICAL HERNIA; HYSTERECTOMY/WOUND DEHISCENCE REPAIR) Hx Post-Op Nausea and Vomiting: No Hx Cancer Surgery: No Hx Thoracic Surgery: No Hx Orthopedic: No Hx Urinary Tract Surgery: No Social History Smoking Status: Former Smoker Hx Substance Use: No Hx Alcohol Use: Yes (OCCASIONALLY) Allergies Coded Allergies: Adhesives (Verified Allergy, Intermediate, TAPE- SEVERE ITCHING, 12/24/17) Chlorhexidine (Verified Allergy, Intermediate, ITCHING, 12/24/17) Clarithromycin (Verified Adverse Reaction, Intermediate, NAUSEA, 12/24/17) Clindamycin (Verified Adverse Reaction, Mild, NAUSEA, 12/24/17) Tramadol (Verified Adverse Reaction, Mild, dizziness,SYNCOPE, 12/24/17) Current Medications Reported Home Medications Medications Dose Route/Sig Max Daily Dose Days Date Category Dose Instructions Lovenox (Enoxaparin Sodium) 40 Mg/0.4 Ml Inj 40 Mg SQ DAILY 12/24/17 Reported Jantoven (Warfarin Sodium) 10 Mg Tab 15 Mg PO DAILY 12/24/17 Reported Tue,Yin,Sat,Sun Ambien (Zolpidem Tartrate) 5 Mg Tab 7.5 Mg PO HS 11/10/17 Reported Coumadin (Warfarin Sodium) 10 Mg Tab 10 Mg PO MWF 07/26/17 Reported DIRECTED, WILL BEING BRIDGED WITH LOVENOX. Lioresal (Baclofen) 10 Mg Tab 10 Mg PO QPM 07/07/17 Reported Vitamin D 50333 Unit (Ergocalciferol) 50,000 Unit Cap 50,000 Units PO WK 05/22/17 Reported takes on wednesday Combivent Respimat (Ipratropium-Albuterol) 1 Aer Aer 2 Puffs INH Q2H PRN 09/29/16 Reported Spiriva Respimat (Tiotropium [place]) 1.25 Mcg/Act Aer 1 Puffs INH BID 09/29/16 Reported Flonase Allergy Relief (Fluticasone Propionate (Nasal)) 50 Mcg/Act Spr 1 Sprays MUKESH BID 2/21/17 Reported Cyanocobalamin 1,000 Mcg/Ml Inj 1,000 Mcg SQ WK 09/29/16 Reported ON THURS Xanax (Alprazolam) 2 Mg Tab 2 Mg PO HS 09/29/16 Reported Symbicort 160/4.5 Inhaler (Budesonide/Formoterol Fumarate) Aero 2 Puffs INH BID 07/15/15 Reported Zantac (Ranitidine Hcl) 150 Mg Tab 150 Mg PO HS 12/04/13 Reported Lasix (Furosemide) 20 Mg Tab 20 Mg PO DAILY PRN 12/04/13 Reported Duoneb (Ipratropium-Albuterol) 3 Ml Nebu 1 Treatment INH Q4 PRN 05/08/13 Reported Singulair (Montelukast Sodium) 10 Mg Tab 10 Mg PO HS 05/08/13 Reported Susanne (Fexofenadine Hcl) 180 Mg Tab 180 Mg PO QAM 05/08/13 Reported Prilosec (Omeprazole) 20 Mg Capcr 20 Mg PO QAM 11/11/12 Reported Vital Signs Weight (Kilograms): 151.36 Height (Feet): 5 Height (Inches): 8 Date Time Temp Pulse Resp B/P (MAP) Pulse Ox O2 Delivery O2 Flow Rate FiO2 12/24/17 10:05 36.9 65 20 125/54 (77) 98 Room Air Physical Exam General Appearance: no apparent distress Respiratory/Chest: Auscultation: breath sounds normal Cardiovascular: Heart Auscultation: RRR Abdomen: Inspection & Palpation: soft Assessment and Plan Stable for ERCP
[2017-12-24] MEDS ORDERED: INDOMETHACIN 50 MG SUPP PR STA (12:25)
[2017-12-24] MEDS ORDERED: INDOMETHACIN 50 MG SUPP ONE (12:27)
--- NOTE | 2017-12-24 13:04 | [facility] Operative Report ---
Operative Report Operative Date December 24, 2017. Pre-Operative Diagnosis Common bile duct stent Post-Operative Diagnosis Same as preoperative diagnosis Procedure(s) Performed Endoscopic Retrograde Cholangiopancreatogram with stent removal and endoscopic gastroduodenoscopy Surgeon Dr. Ho Battery Charger Conveyor Line Surgeon(s) None Estimated Blood Loss None Findings Stent removed, no stones remained Specimens No Specimen Anesthesia Type General I attest to the content of the Intraoperative Record and any orders documented therein. Any exceptions are noted below.
--- NOTE | 2017-12-24 13:06 | Discharge Instructions ---
Endoscopy Patient Instructions Date / Procedure(s) Performed December 24, 2017. ERCP Allergy Information Coded Allergies: Adhesives (Verified Allergy, Intermediate, TAPE- SEVERE ITCHING, 12/24/17) Chlorhexidine (Verified Allergy, Intermediate, ITCHING, 12/24/17) Clarithromycin (Verified Adverse Reaction, Intermediate, NAUSEA, 12/24/17) Clindamycin (Verified Adverse Reaction, Mild, NAUSEA, 12/24/17) Tramadol (Verified Adverse Reaction, Mild, dizziness,SYNCOPE, 12/24/17) Discharge Date / Findings December 24, 2017. CBD stent removed, no stones remained on cholangiogram Provider Instructions Activity Restrictions - No exercising or heavy lifting for 24 hours. - Do not drink alcohol the day of the procedure. - Do not drive a car or operate machinery until the day after the procedure. - Do not make any important decisions or sign important papers in 24 hours after the procedure. Following Day: - Return to full activity which may include returning to work/school. Diet Start your diet with liquids and light foods (jello, soup, juice, toast). Then eat your usual diet if not nauseated. Treatment For Common After Affects For mild abdominal pain, bloating, or excessive gas: - Rest - Eat lightly - Lie on right side Follow-Up Information Follow-up with as scheduled Anesthesia Information What You Should Know You have had a procedure that required some medicine to reduce anxiety and discomfort. This treatment is called moderate sedation. After receiving the treatment, you may be sleepy, but you will be able to breathe on your own. The effects of the treatment may last for several hours. Follow these instructions along with Activity/Diet recommendations noted above: * Do NOT do anything where dizziness or clumsiness would be dangerous. * Rest quietly at home today, then you can be up and about tomorrow. * Have a responsible person stay with you the rest of today. * You may have had an I.V. today. If so, you may take the dressing off later today. Recommendations Call your doctor if: * Trouble breathing * Continuous vomiting for more than 24 hours * Temperature above 101 degrees * Severe abdominal pain or bloating * Pain not relieved by pain medicine ordered * There is increased drainage or redness from any incision * A large amount of rectal bleeding greater than 2-3 tablespoons. (If you had a polyp/s removed or have hemorrhoids, a small amount of blood - from the rectum is to be expected.) * You have any unanswered questions or concerns. IN THE EVENT OF A SERIOUS EMERGENCY, GO TO THE NEAREST EMERGENCY ROOM Your discharge instructions were prepared by provider Yohannes Ho. Patient Instructions Signature Page Jessica Sheppard Patient (or Guardian) Signature/Date: I have read and understand the instructions given to me by my caregivers. Caregiver/RN/Doctor Signature/Date: The above-named patient and/or guardian has received patient instructions on this date. + Original Patient Signature Page (only) stays with chart. Please make copy for patient.
--- NOTE | 2017-12-24 13:06 | DIAGNOSTIC IMAGING REPORT ---
ERCP BILIARY DUCTAL CLINICAL HISTORY: 47 years-old Female presenting with EXPLORE DUCTS. TECHNIQUE: Fluoroscopy was provided for endoscopic retrograde cholangiopancreatography. 5 fluoroscopic image(s) recorded. COMPARISON: 11/11/2017. FINDINGS: Peritoneal spillage: No evidence of peritoneal spillage of contrast. Extrahepatic bile ducts: Endoscope projects over the duodenum and a catheter was introduced into the common bile duct. The proximal to mid common duct is poorly opacified with contrast suggesting a filling defect. This was subsequently cleared with a balloon. Contrast extends into the small bowel. Intrahepatic bile ducts: No intrahepatic bile duct dilatation. Fluoroscopy dosage (mGy): 54.21. Fluoroscopy time: 84 seconds. Number of fluoroscopic spot images: 0. IMPRESSION: Suspected clearance of choledocholithiasis on ERCP. No biliary ductal dilatation at the conclusion of the exam. Please see separately dictated operative report for additional findings. Electronically signed by: Td Quiros M.D. 12/24/2017 1:04 PM Dictated Date/Time: 12/24/2017 1:02 PM
[2017-12-24] MEDS ORDERED: HYDROmorphone INJ 0.5 MG/0.5 ML SYR ONE (13:16)
[2017-12-24] MEDS: FENTANYL CITRATE INJ 50 MCG/1 ML 2 ML VIAL IV PRN ×2 (13:21→13:33)
--- NOTE | 2017-12-24 13:28 | GI REPORT ---
Patient Name: Jessica Sheppard Procedure Date: 12/24/2017 11:34 AM Date of : 1970 Admit Type: Outpatient Age: 47 Gender: Female Attending MD: Yohannes Ho MD Procedure: ERCP Providers: Yohannes Ho MD Referring MD: Ramon العراقي, Carlo Blue Md Indications: Stent removal Medicines: General Anesthesia Complications: No immediate complications. Estimated Blood Loss: Estimated blood loss: none. Procedure: Pre-Anesthesia Assessment: - Prior to the procedure, a History and Physical was performed, and patient medications and allergies were reviewed. The patient is competent. The risks and benefits of the procedure and the sedation options and risks were discussed with the patient. All questions were answered and informed consent was obtained. Patient identification and proposed procedure were verified by the physician and the nurse in the procedure room. Mental Status Examination: alert and oriented. Airway Examination: normal oropharyngeal airway and neck mobility. Respiratory Examination: clear to auscultation. CV Examination: normal. ASA Grade Assessment: III - A patient with severe systemic disease. After reviewing the risks and benefits, the patient was deemed in satisfactory condition to undergo the procedure. The anesthesia plan was to use general anesthesia. Immediately prior to administration of medications, the patient was re-assessed for adequacy to receive sedatives. The heart rate, respiratory rate, oxygen saturations, blood pressure, adequacy of pulmonary ventilation, and response to care were monitored throughout the procedure. The physical status of the patient was re-assessed after the procedure. After obtaining informed consent, the scope was passed under direct vision. Throughout the procedure, the patient's blood pressure, pulse, and oxygen saturations were monitored continuously. The Scope was introduced through the mouth, and advanced to the duodenum and used to inject contrast into the bile duct. The ERCP was accomplished without difficulty. The patient tolerated the procedure well. Findings: A biliary stent was visible on the chief drafter film. The esophagus was successfully intubated under direct vision. The scope was advanced to a normal major papilla in the descending duodenum without detailed examination of the pharynx, larynx and associated structures, and upper GI tract. The upper GI tract was grossly normal. One plastic stent originating in the biliary tree was emerging from the major papilla. The stent was partially occluded and embedded on the opposite duodenal wall. One stent was removed from the biliary tree using a snare. A 0.035 inch straight standard wire was passed into the biliary tree. The Fusion OMNI sphincterotome was passed over the guidewire and the bile duct was then deeply cannulated. Contrast was injected. I personally interpreted the bile duct images. Ductal flow of contrast was adequate. Image quality was adequate. Contrast extended to the main bile duct. The main bile duct was normal. The biliary tree was swept with a 8.5 mm balloon starting at the bifurcation. Sludge was swept from the duct. Occlusion cholangiogram showed no stones remained. To prevent bleeding from the area were the stent was embedded on the duodenal wall, three hemostatic clips were successfully placed (MR conditional). There was no bleeding at the end of the procedure. There was no room to extend the sphincterotomy. Indomethacin 50 mg rectally was given to prevent post ERCP pancreatitis. Impression: - One partially occluded stent from the biliary tree was seen in the major papilla. This was removed. - Prior sphincterotomy is open with no room for extension. - The biliary tree was swept and sludge was found. Occlusion cholangiogram showed no remaining stones. Recommendation: - Discharge patient to home. - Return to referring physician. Yohannes Ho MD 12/24/2017 1:28:21 PM This report has been signed electronically. Note Initiated On: 12/24/2017 11:34 AM Number of Addenda: 0 I attest to the content of the Intraoperative Record and orders documented therein, exceptions below {[id number]}
[2017-12-24 14:01] VITALS: BP 136/68; PULSE 55; TEMP 36.7; O2SAT 96
--- NOTE | 2017-12-24 14:29 | Anesthesiology Progress Note ---
Anesthesia Post Op Note Date & Time December 24, 2017 at 14:29 Vital Signs Pain Intensity: 2 Vital Signs Past 12 Hours Date Time Temp Pulse Resp B/P (MAP) Pulse Ox O2 Delivery O2 Flow Rate FiO2 12/24/17 14:01 36.7 55 16 136/68 96 Room Air 12/24/17 13:53 36.3 95 Room Air 12/24/17 13:51 149/80 12/24/17 13:48 54 15 12/24/17 13:48 53 15 97 12/24/17 13:46 137/68 12/24/17 13:43 66 18 97 12/24/17 13:43 66 18 12/24/17 13:42 69 18 12/24/17 13:42 66 18 98 12/24/17 13:41 135/81 12/24/17 13:37 57 15 98 12/24/17 13:37 59 15 12/24/17 13:36 142/73 12/24/17 13:32 71 19 100 12/24/17 13:32 67 19 12/24/17 13:31 57 19 12/24/17 13:31 56 19 140/88 100 12/24/17 13:26 62 18 150/84 100 18 13:26 62 18 12/24/17 13:25 147/83 12/24/17 13:21 66 23 12/24/17 13:21 73 23 100 18 13:16 78 24 12/24/17 13:16 76 24 100 12/24/17 13:12 169/92 12/24/17 13:11 36.1 97 20 169/92 100 Oxymask 10 12/24/17 10:05 36.9 65 20 125/54 (77) 98 Room Air Notes Mental Status: alert / awake / arousable, participated in evaluation Pt Amnestic to Procedure: Yes Nausea / Vomiting: adequately controlled Pain: adequately controlled Airway Patency, RR, SpO2: stable & adequate BP & HR: stable & adequate Hydration State: stable & adequate Anesthetic Complications: no major complications apparent
[2017-12-24 14:31] VITALS: BP 129/64; PULSE 56; O2SAT 99
[2017-12-24 14:56] VITALS: BP 138/68; PULSE 57; TEMP 36.5; O2SAT 99
[2017-12-24] MEDS ORDERED: GLUCAGON FOR INJ 1 MG VIAL ONE (14:58)
[2017-12-24] MEDS ORDERED: CHECK SCOPOLAMINE PATCH PLACEMENT SCH (16:00)
== END 2017-12-24 14:59 | disposition home or self-care (01) ==
LOC: C.ACU 09:25
PROVIDERS: ATTEND Student in an Organized Health Care Education/Training Program
DX: Z46.59 Encounter for fitting and adjustment of other gastrointestinal appliance and device (principal); J44.9 Chronic obstructive pulmonary disease, unspecified; M19.90 Unspecified osteoarthritis, unspecified site; K21.9 Gastro-esophageal reflux disease without esophagitis; Z79.01 Long term (current) use of anticoagulants; Z86.711 Personal history of pulmonary embolism; Z90.49 Acquired absence of other specified parts of digestive tract; Z90.710 Acquired absence of both cervix and uterus; Z87.891 Personal history of nicotine dependence

== ENCOUNTER 2020-03-18 11:24 | Inpatient (IN) ==
[2020-03-18] MEDS ORDERED: ALBUTEROL 0.083% NEBU SOLN 3 ML VIAL INH STA (11:47)
[2020-03-18] MEDS ORDERED: methylPREDNISolone 125 MG/2 ML VIAL IV STA (11:47)
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
[2020-03-18 11:59] LABS: Mean Corpuscular Hgb Conc 32.2 g/dL (32-36); Mean Platelet Volume 9.5 fL (7.4-10.4); Nucleated RBC # (auto) 0.02 K/uL (0-0); Nucleated RBC % (auto) 0.2 %; Platelet Count 462 K/uL (130-400)
[2020-03-18] MEDS ORDERED: LORazepam 1 MG TAB SL STA (12:02)
--- NOTE | 2020-03-18 12:11 | XRay Report ---
XR chest 1V portable CLINICAL HISTORY: dyspnea dyspnea COMPARISON STUDY: 01/04/2020 FINDINGS: The bones soft tissues and hemidiaphragms are normal. The cardiomediastinal silhouette is n ormal. The lungs are clear. The pulmonary vasculature is normal. IMPRESSION: Negative chest. ACT 112: Negative or not required by law. The above report was generated using voice recognition software. It may contain grammatical, syntax or spelling errors. Electronically signed by: Michael Schneider M.D. 03/18/2020 12:09 PM
[2020-03-18] MEDS: MAGNESIUM SULFATE / D5W 1 GM/100 ML BAG IV SCH ×2 (12:15→13:27)
[2020-03-18] MEDS ORDERED: ONDANSETRON INJ 2 MG/ML 2 ML VIAL IV STA (12:20)
[2020-03-18] MEDS ORDERED: MoRPHine SULFATE 4 MG/ML 1 ML CARP\\VIAL IV STA (12:20)
[2020-03-18 12:25] LABS: Alanine Aminotransferase 113 U/L (12-78); Albumin Globulin Ratio 0.8 (0.9-2); Alkaline Phosphatase 137 U/L (45-117); BUN Creatinine Ratio 18.8 (10-20); Bilirubin,Total 0.4 mg/dl (0.2-1); Blood Urea Nitrogen 17 mg/dl (7-18); Calcium 9.4 mg/dl (8.5-10.1); Carbon Dioxide 26 mmol/L (21-32); Chloride 104 mmol/L (98-107); Creatinine Clr Calc Pharmacy 126.5 ml/min; Est GFR (African American) 84.8; Est GFR (Non-African American) 73.2; Globulin 3.9 gm/dl (2.5-4.0); Glucose 149 mg/dl (70-99); Total Protein 6.9 gm/dl (6.4-8.2); Troponin I < 0.015 ng/ml (0-0.045)
[2020-03-18 12:29] LABS: Hematocrit (blood only) 39.1 % (37-47); Hemoglobin 12.6 g/dL (12.0-16.0); Mean Corpuscular Hemoglobin 30.9 pg (25-34); Mean Corpuscular Volume 95.8 fL (80-100); Potassium 4.1 mmol/L (3.5-5.1); RDW Coefficient of Variation 15.7 % (11.5-14.5); RDW Standard Deviation 54.6 fL (36.4-46.3); Red Blood Count 4.08 M/uL (4.2-5.4); Sodium 139 mmol/L (136-145)
[2020-03-18 12:33] LABS: Aspartate Aminotransferase 29 U/L (15-37)
[2020-03-18 12:49] LABS: Basophils # (auto) 0.04 K/uL (0-0.2); Basophils % (auto) 0.4 %; Immature Granulocytes # (auto) 0.29 K/uL (0.00-0.02); Lymphocytes # (auto) 3.04 K/uL (1.2-3.4); Lymphocytes % (auto) 31.3 %; Monocytes # (auto) 0.51 K/uL (0.11-0.59); Monocytes % (auto) 5.3 %; Neutrophils # (auto) 5.72 K/uL (1.4-6.5); Toxic Vacuolation 1+
[2020-03-18 12:53] LABS: INR 4.3 (0.9-1.1); Partial Thromboplastin Ratio 1.7; Prothrombin Time 41.5 Seconds (9.0-12.0)
[2020-03-18 12:55] LABS: Partial Thromboplastin Time 46.8 Seconds (21.0-31.0)
[2020-03-18] MEDS ORDERED: ALBUT/IPRATROP 3MG/0.5MG NEB 3 ML VIAL NEB STA (14:06)
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
--- NOTE | 2020-03-18 16:31 | CT Scan Report ---
CT chest wo con CLINICAL HISTORY: Progressive unexplained shortness of breath POSSIBLE CONGESTIVE FAILURE COMPARISON STUDY: CT scan dated 10/21/2017, chest x-ray dated 03/18/2020 CT DOSE: 1236.73 mGy.cm TECHNIQUE: CT of the thorax was performed from the thoracic inlet to the lung bases. Images are revi ewed in the axial, sagittal, and coronal planes. IV contrast was not administered for this examinatio n. A dose lowering technique was utilized adhering to the principles of ALARA. FINDINGS: Thyroid: Imaged portions of the thyroid gland are normal in appearance. Thoracic aorta: There is mild ectasia of descending thoracic aorta which measures 38 mm. Heart: The heart is borderline enlarged. There is no pericardial effusion. Lungs and pleural spaces: There are no pleural effusions. There are dependent basilar opacities which are likely atelectatic. There is mild diffuse groundglass attenuation of the lungs. This could be se condary to atelectasis given the suboptimal inspiration, although an infectious/inflammatory process could appear similar. Mediastinum: There is no evidence of pathologic mediastinal lymphadenopathy Emperatriz: There is no evidence of pathologic hilar adenopathy given the limitations of a noncontrast stud y Axilla: There is no evidence of pathologic axillary lymphadenopathy Upper abdomen: There is pneumobilia. Skeletal structures: There are no lytic or blastic osseous lesions. IMPRESSION: 1. No evidence of pathologic adenopathy 2. Dependent opacities which are felt to be atelectatic 3. No evidence of lobar consolidation 4. Mild diffuse groundglass pulmonary opacity. While this may simple be secondary to atelectasis give n the suboptimal inspiration on the current study, an infectious/inflammatory processes could appear similar. 5. There are no CT findings to indicate interstitial pulmonary edema 6. Mild ectasia of the ascending thoracic aorta ACT 112: Negative or not required by law. Electronically signed by: Yousif Marino M.D. 03/18/2020 4:30 PM
[2020-03-18] MEDS ORDERED: FUROSEMIDE 40 MG/4 ML VIAL IV STA (17:21)
[2020-03-18] MEDS ORDERED: HYDROmorphone INJ 1 MG/ML SYRINGE IV STA (17:34)
[2020-03-18] MEDS ORDERED: HYDROmorphone INJ 0.5 MG/0.5 ML SYR ONE (17:37)
[2020-03-18] MEDS ORDERED: ACETAMINOPHEN 325 MG TAB PO PRN (19:44)
[2020-03-18] MEDS ORDERED: IPRATROPIUM BROMIDE/ALBUTEROL respimat INH INH PRN (19:44)
[2020-03-18] MEDS ORDERED: ONDANSETRON INJ 2 MG/ML 2 ML VIAL IV PRN (19:44)
[2020-03-18] MEDS: ALBUT/IPRATROP 3MG/0.5MG NEB 3 ML VIAL INH SCH (20:08)
[2020-03-18] MEDS: BACLOFEN 10 MG TAB PO SCH (21:12)
[2020-03-18] MEDS: FEXOFENADINE HCL 180 MG TAB PO SCH (21:12)
[2020-03-18] MEDS: AMOXICILLIN/CLAVULANATE 875 MG TAB PO SCH (21:12)
[2020-03-18] MEDS: guaiFENesin 600 MG TABCR PO SCH (21:13)
[2020-03-18] MEDS: INSULIN ASPART 100 UNITS/ML 3 ML PEN SC SCH (21:14)
[2020-03-18] MEDS: CETIRIZINE HCL 10 MG TABLET PO SCH (21:14)
[2020-03-18] MEDS: MONTELUKAST SODIUM 10 MG TABLET PO SCH (21:14)
[2020-03-18] MEDS: ZOLPIDEM TARTRATE 5 MG TAB PO SCH (21:18)
[2020-03-18] MEDS: ALPRAZolam 0.5 MG TABLET PO SCH (21:23)
[2020-03-18] MEDS: HYDROCODONE/ACETAMINOPHEN 10/325 TAB PO PRN (21:30)
[2020-03-18] MEDS ORDERED: MoRPHine SULFATE 2 MG/ML CARP IV STA (23:50)
[2020-03-19] MEDS: ALBUT/IPRATROP 3MG/0.5MG NEB 3 ML VIAL INH SCH ×4 (00:12→19:21)
[2020-03-19] MEDS: HYDROCODONE/ACETAMINOPHEN 10/325 TAB PO PRN ×3 (05:13→21:02)
--- NOTE | 2020-03-19 06:02 | Electrocardiogram Report ---
Test Reason : Blood Pressure : / mmHG Vent. Rate : 087 BPM Atrial Rate : 087 BPM P-R Int : 136 ms QRS Dur : 084 ms QT Int : 394 ms P-R-T Axes : 064 007 043 degrees QTc Int : 474 ms Normal sinus rhythm Cannot rule out Anterior infarct (cited on or before 12-MAY-2019) Abnormal ECG When compared with ECG of 04-JAN-2020 15:32, No significant change was found Confirmed by Rogerio Whitaker ([id number]) on 03/19/2020 6:01:52 AM Referred By: REFERRED SELF Confirmed By:Rogerio Whitaker
[2020-03-19 07:06] LABS: Estimated Average Glucose 100 mg/dl; Hemoglobin A1C 5.1 % (4.5-5.6)
[2020-03-19 07:13] LABS: Prothrombin Time 30.1 Seconds (9.0-12.0)
[2020-03-19 07:34] LABS: Alanine Aminotransferase 97 U/L (12-78); Aspartate Aminotransferase 16 U/L (15-37); BUN Creatinine Ratio 19.2 (10-20); Bilirubin Direct < 0.1 mg/dl (0-0.2); Blood Urea Nitrogen 13 mg/dl (7-18); Calcium 9.3 mg/dl (8.5-10.1); Carbon Dioxide 31 mmol/L (21-32); Chloride 97 mmol/L (98-107); Creatinine Clr Calc Pharmacy 175.6 ml/min; Est GFR (African American) 121.3; Est GFR (Non-African American) 104.7; Glucose 120 mg/dl (70-99); Magnesium 2.5 mg/dl (1.8-2.4); Potassium 3.8 mmol/L (3.5-5.1); Sodium 134 mmol/L (136-145)
[2020-03-19 07:45] LABS: Alkaline Phosphatase 132 U/L (45-117); Bilirubin,Total 0.3 mg/dl (0.2-1); Thyroid Stimulating Hormone 0.376 uIu/ml (0.300-4.500)
[2020-03-19] MEDS: guaiFENesin 600 MG TABCR PO SCH (08:10)
[2020-03-19] MEDS: AMOXICILLIN/CLAVULANATE 875 MG TAB PO SCH ×2 (08:10→17:31)
[2020-03-19] MEDS: FEXOFENADINE HCL 180 MG TAB PO SCH ×2 (08:10→17:31)
[2020-03-19] MEDS: SPIRONOLACTONE 25 MG TAB PO SCH (08:11)
[2020-03-19] MEDS: FLUTICASONE PROPIONATE NA SPR 16 GM BTL SCH (08:12)
[2020-03-19] MEDS: UMECLIDINIUM BROMIDE 62.5MCG/BLISTER 7 PUFFS/INHALER INH SCH (08:13)
[2020-03-19] MEDS: LIDOCAINE 5% 1 PATCH TD SCH (08:14)
[2020-03-19] MEDS: PANTOprazole 40 MG TAB PO SCH (08:14)
[2020-03-19] MEDS: INSULIN ASPART 100 UNITS/ML 3 ML PEN SC SCH ×4 (08:15→20:48)
[2020-03-19] MEDS ORDERED: FLUTICASONE/VILANTEROL 100/25MCG 14 PUFFS/INHALER INH SCH (09:00)
[2020-03-19] MEDS ORDERED: FUROSEMIDE 40 MG TAB PO SCH (09:00)
[2020-03-19] MEDS ORDERED: FLUTICASONE FUROATE 200MCG 14 PUFFS/INHALER INH SCH (09:00)
[2020-03-19] MEDS ORDERED: predniSONE 20 MG TAB PO SCH ×2 (09:00)
[2020-03-19] MEDS: ALPRAZolam 0.5 MG TABLET PO PRN ×3 (10:09→23:46)
--- NOTE | 2020-03-19 11:46 | Hospitalist Progress Note ---
Date of Service March 19, 2020 Assessment & Plan (1) Dyspnea: Admitted for worsening dyspnea thought to be related to acute asthma exacerbation. I suspect her ongoing dyspnea is not necessarily all from asthma. But also with significant 50 pound weight gain in a short amount of time secondary to long- term prednisone use. proBNP is negative, echocardiogram checked and with preserved EF With anasarca on examination -Continue treatment for asthma as below -Diuresis with Lasix 40 mg IV x1 this afternoon -Fluid restrict to 2000 mL's per day Daily weights, I's and O's -Strongly encouraged weight loss through calorie restriction as she is unable to exercise (2) Severe persistent asthma, poorly-controlled: I am uncertain if presenting symptoms represent refractory, uncontrolled asthma vs superimposed infectious process vs pulmonary edema/CHF vs other. She is on maximum therapy for her asthma including long-term steroids since 10/2019 and recently instituted dupilumab. She follows with [facility] pulmonary, Mickey Mejia, as well as former Dr Remigio Murphy who previously worked with [facility]. Dr Murphy now works in [place], [place]. Despite recent steroid burst and antibiotics she is no better. CT chest without contrast showed groundglass opacities likely atelectasis, no pneumonia COVID-19 is negative Seen by pulmonology here who recommends continued prednisone 60 mg daily, thanks findings on imaging are related to atelectasis, recommends losing weight, recommends outpatient formal sleep study, continue with inhaled bronchodilators and changed Arnuity to Breo to add the LABA component (3) Choledocholithiasis: With a history of ascending cholangitis in 2018 with CBD stones requiring stent placement Here with intermittent abdominal pain in the epigastric region for the last week ALT and alkaline phosphatase are elevated but slightly improved from yesterday. Total bilirubin is normal. MRCP checked and confirms at least 3 intraluminal filling defects in the CBD with mild intrahepatic ductal dilatation She is afebrile and is without leukocytosis-no indication for emergent procedure -Discussed with GI on-call on the phone who recommends ERCP -She is on Coumadin and this has been held yesterday and today for elevated INR- we will continue to hold for procedure -Make n.p.o. after midnight for ERCP possible tomorrow if INR is acceptable -Is on Augmentin for previous leg cellulitis-we will continue this for now (4) Supratherapeutic INR: likely due to antibiotic usage. Was above 4 on admission and is now down to 3.0 -Continue to hold coumadin. INR am. (5) Pre-diabetes: Hemoglobin A1c only 5.1% which is in the normal range place on DM diet. Giving higher dose steroids however glucose is not significantly elevated Continue Accu-Cheks and NovoLog as needed (6) Obstructive sleep apnea of adult: Does not have CPAP could be contributing to refractory pulmonary symptoms. -Needs outpatient sleep study given significant weight gain recently (7) GERD without esophagitis: Chronic, uncontrolled GERD could contribute to asthma. -Continue PPI. (8) Allergic rhinitis: Cont all usual home meds (9) Pulmonary embolism: history of such, 2012. INR >3 on admission and now going for procedure hopefully tomorrow-- hold coumadin, INR am. (10) Abnormal LFTs: Likely secondary to choledocholithiasis as above patient has had cholangitis in the past requiring CBD stent. Also with fatty liver -Follow LFTs in the morning (11) Morbid obesity with BMI of 50.0-59.9, adult: BMI 57 Encouraged significant weight loss Needs to get off of chronic prednisone (12) Weight gain: massive, 50+ pounds since early 2019, likely due to chronic steroids. TSH is normal Encouraged weight loss as above (13) Chronic back pain: consider dedicated imaging if worsens. likely to have severe DJD due to morbid obesity, could have compression fractures from osteoporosis. cont hydrocodone prn. appears to get narcotics about every other month from PCP's office per PDMP. (14) Anxiety: Continue Xanax as per home dosing (15) Vitamin D deficiency: Continue home vitamin D (16) DVT prophylaxis: INR still therapeutic, Coumadin on hold Has a history of DVT Disposition-make inpatient as she is now with choledocholithiasis and needs continued care Admission and Anticipated Discharge Date Admission Date: March 18, 2020 Subjective Patient still feels short of breath with minimal exertion. Reports the swelling in her face and legs is down from 1 week ago. Her dose of Lasix was increased to 40 mg daily several months ago but spironolactone was a new addition she thinks about a few weeks ago. She reports having gained 50 pounds in the last 6 months since she has been on chronic daily prednisone. Patient also reports she drinks a lot of water. She feels thirsty all the time and for example has already had 48 ounces of water in the last 2 hours. Reports she has been having intermittent upper abdominal pain that is severe at times for the last week. She denies fevers or chills. Denies vomiting. She feels this is very similar to when she had choledocholithiasis in the past. She has a history of cholangitis requiring ERCP with biliary stent placement. She is status post cholecystectomy. Telemetry with normal sinus rhythm, PVCs, rate 60s-80s Review of Systems Review of Systems: All systems reviewed & are unremarkable except as noted in HPI & below Reports frequent flushing in the face. Denies chest pains, denies vomiting, no diarrhea. Physical Exam Constitutional: WD/WN, vitals as above + morbidly obese (Cushingoid appe arance) Eyes: + anicteric sclerae ENMT: external ear and nose normal, oropharynx normal Neck: trachea midline, no thyromegaly Respiratory: normal respiratory effort Auscultation: + diminished lung sounds (Throughout due to body habitus) and + wheezes (Only in anterior lung rivero with forced expiration); no crackles Cardiovascular: Rate/Rhythm: regular rate and regular rhythm Heart Sounds: no murmur Extremities: + edema (1+ pitting edema of the lower extremities bilaterally) Chest (Breasts): Chest: normal inspection of chest Gastrointestinal (Abdomen): normal bowel sounds, soft, nontender, no hepatosplenomegaly Musculoskeletal: Extremities: no cyanosis and no clubbing Skin: + erythema (Flushing of the face) Neurologic: moves all extremities and awake; no focal motor deficits Psychiatric: A+Ox3, euthymic affect Lymphatic: no lymphedema Results & Data Results & Data ([facility]) Vital Signs (Past 12 Hours) Vital Signs Temp Pulse Pulse Resp BP Pulse Ox 03/19/20 08:00 73 03/19/20 07:05 73 18 95 03/19/20 07:02 36.4 C L 73 20 150/94 H 97 03/19/20 04:06 36.8 C 92 H 20 152/82 H 97 03/19/20 00:12 85 18 95 03/19/20 00:00 92 H Laboratory Results 03/19/20 03/19/20 03/19/20 Range/Units 20:03 11:47 07:36 PT (9.0-12.0) Seconds INR (0.9-1.1) Sodium (136-145) mmol/L Potassium (3.5-5.1) mmol/L Chloride (98-107) mmol/L Carbon Dioxide (21-32) mmol/L Anion Gap (3-11) BUN (7-18) mg/dl Creatinine (0.6-1.2) mg/dl Est Cr Clr Drug Dosing ml/min Est GFR ( Amer) Est GFR (Non-Af Amer) BUN/Creatinine Ratio (10-20) Glucose (70-99) mg/dl POC Glucose 113 H 107 H 132 H (70-99) mg/dl Estimat Average Glucose mg/dl Hemoglobin A1c (4.5-5.6) % Calcium (8.5-10.1) mg/dl Magnesium (1.8-2.4) mg/dl Total Bilirubin (0.2-1) mg/dl Direct Bilirubin (0-0.2) mg/dl AST (15-37) U/L ALT (12-78) U/L Alkaline Phosphatase (45-117) U/L NT-Pro-B Natriuret Pep (0-450) pg/ml Total Protein (6.4-8.2) gm/dl Albumin (3.4-5.0) gm/dl TSH (0.300-4.500) uIu/ml 03/19/20 03/19/20 03/19/20 Range/Units 06:39 06:39 06:39 PT (9.0-12.0) Seconds INR (0.9-1.1) Sodium 134 L (136-145) mmol/L Potassium 3.8 (3.5-5.1) mmol/L Chloride 97 L (98-107) mmol/L Carbon Dioxide 31 (21-32) mmol/L Anion Gap 6.0 (3-11) BUN 13 (7-18) mg/dl Creatinine 0.67 (0.6-1.2) mg/dl Est Cr Clr Drug Dosing 175.6 ml/min Est GFR ( Amer) 121.3 Est GFR (Non-Af Amer) 104.7 BUN/Creatinine Ratio 19.2 (10-20) Glucose 120 H (70-99) mg/dl POC Glucose (70-99) mg/dl Estimat Average Glucose 100 mg/dl Hemoglobin A1c 5.1 (4.5-5.6) % Calcium 9.3 (8.5-10.1) mg/dl Magnesium 2.5 H (1.8-2.4) mg/dl Total Bilirubin 0.3 (0.2-1) mg/dl Direct Bilirubin < 0.1 (0-0.2) mg/dl AST 16 (15-37) U/L ALT 97 H (12-78) U/L Alkaline Phosphatase 132 H (45-117) U/L NT-Pro-B Natriuret Pep 66 (0-450) pg/ml Total Protein 7.0 (6.4-8.2) gm/dl Albumin 3.0 L (3.4-5.0) gm/dl TSH 0.376 (0.300-4.500) uIu/ml 03/19/20 Range/Units 06:39 PT 30.1 H (9.0-12.0) Seconds INR 3.0 H (0.9-1.1) Sodium (136-145) mmol/L Potassium (3.5-5.1) mmol/L Chloride (98-107) mmol/L Carbon Dioxide (21-32) mmol/L Anion Gap (3-11) BUN (7-18) mg/dl Creatinine (0.6-1.2) mg/dl Est Cr Clr Drug Dosing ml/min Est GFR ( Amer) Est GFR (Non-Af Amer) BUN/Creatinine Ratio (10-20) Glucose (70-99) mg/dl POC Glucose (70-99) mg/dl Estimat Average Glucose mg/dl Hemoglobin A1c (4.5-5.6) % Calcium (8.5-10.1) mg/dl Magnesium (1.8-2.4) mg/dl Total Bilirubin (0.2-1) mg/dl Direct Bilirubin (0-0.2) mg/dl AST (15-37) U/L ALT (12-78) U/L Alkaline Phosphatase (45-117) U/L NT-Pro-B Natriuret Pep (0-450) pg/ml Total Protein (6.4-8.2) gm/dl Albumin (3.4-5.0) gm/dl TSH (0.300-4.500) uIu/ml Diagnostic Findings MRCP CLINICAL HISTORY: Elevated hepatic transaminases. COMPARISON STUDY: MRCP dated 11/11/2017. Abdominal CT dated 11/10/2017. TECHNIQUE: Abdominal MRCP is performed using various T2-weighted sequences in the axial and coronal planes. IV contrast was not administered for this examination. 3-D reformats are created and assessed. The examination is significantly degraded by large body habitus. FINDINGS: The gallbladder is surgically absent. The common bile duct measures up to 9 mm in diameter. There are at least 3 intraluminal filling defects within the distal common bile duct best seen on coronal MRCP image #50 which are consistent with choledocholithiasis. The largest measures 5 mm. There is only minimal intrahepatic biliary ductal dilatation. The pancreatic duct is normal as visualized but not well evaluated. The liver is enlarged measuring 18.4 cm in length. Steatosis is suspected. The unenhanced spleen, adrenal glands, pancreas, and kidneys are grossly normal. The abdominal aorta is normal in caliber. There is no bowel obstruction. No abdominal ascites or pleural effusion is identified. IMPRESSION: 1. Status post cholecystectomy. 2. There are several intraluminal filling defects within the mildly distended common bile duct consistent with choledocholithiasis. 3. There is only minimal dilatation of the intrahepatic bile ducts. 4. Hepatomegaly and hepatic steatosis. PG Care Time/CCT Total # of Minutes Spent Total Time Spent with Patient: Total time spent is greater than 50% in coordination of care (as documented) at patient's floor/unit and/or counseling patient: Coding Level of Care Code 40530 Subseq Hosp Care Lvl 3 Diagnoses Dyspnea R06.00 Severe persistent asthma, poorly-controlled J45.51 Asthma complication type: with acute exacerbation Choledocholithiasis K80.50 Supratherapeutic INR R79.1 Pre-diabetes R73.03 Obstructive sleep apnea of adult G47.33 GERD without esophagitis K21.9 Allergic rhinitis J30.89 Allergic rhinitis seasonality: unspecified Allergic rhinitis trigger: other Pulmonary embolism I26.99 Acute cor pulmonale presence: unspecified Chronicity: unspecified Pulmonary embolism type: other Abnormal LFTs R94.5 Morbid obesity with BMI of 50.0-59.9, adult E66.01; Z68.43 Weight gain R63.5 Chronic back pain M54.9; G89.29 Back pain laterality: left Back pain location: back pain in unspecified location Anxiety F41.9 Vitamin D deficiency E55.9 DVT prophylaxis Z29.9 (1) Severe persistent asthma, poorly-controlled Asthma complication type: with acute exacerbation Qualified Code(s): J45.51 - Severe persistent asthma with (acute) exacerbation (2) Chronic back pain Back pain laterality: left Back pain location: back pain in unspecified location Qualified Code(s): M54.9 - Dorsalgia, unspecified; G89.29 - Other chronic pain (3) Pulmonary embolism Acute cor pulmonale presence: unspecified Chronicity: unspecified Pulmonary embolism type: other Qualified Code(s): I26.99 - Other pulmonary embolism without acute cor pulmonale (4) Allergic rhinitis Allergic rhinitis seasonality: unspecified Allergic rhinitis trigger: other Qualified Code(s): J30.89 - Other allergic rhinitis
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
[2020-03-19] MEDS ORDERED: KETOROLAC 30 MG/ML VIAL IV SCH (12:00)
[2020-03-19] MEDS ORDERED: FUROSEMIDE 40 MG in SYRINGE 0 ML IV ONE (16:00)
--- NOTE | 2020-03-19 18:20 | XCELERA ---
[id number]
--- NOTE | 2020-03-19 19:06 | Magnetic Resonance Report ---
MRCP CLINICAL HISTORY: Elevated hepatic transaminases. COMPARISON STUDY: MRCP dated 11/11/2017. Abdominal CT dated 11/10/2017. TECHNIQUE: Abdominal MRCP is performed using various T2-weighted sequences in the axial and coronal p lanes. IV contrast was not administered for this examination. 3-D reformats are created and assessed. The examination is significantly degraded by large body habitus. FINDINGS: The gallbladder is surgically absent. The common bile duct measures up to 9 mm in diameter. There are at least 3 intraluminal filling defects within the distal common bile duct best seen on coronal MRCP image #50 which are consistent with choledocholithiasis. The largest measures 5 mm. There is only mi nimal intrahepatic biliary ductal dilatation. The pancreatic duct is normal as visualized but not wel l evaluated. The liver is enlarged measuring 18.4 cm in length. Steatosis is suspected. The unenhanced spleen, adr enal glands, pancreas, and kidneys are grossly normal. The abdominal aorta is normal in caliber. Ther e is no bowel obstruction. No abdominal ascites or pleural effusion is identified. IMPRESSION: 1. Status post cholecystectomy. 2. There are several intraluminal filling defects within the mildly distended common bile duct consis tent with choledocholithiasis. 3. There is only minimal dilatation of the intrahepatic bile ducts. 4. Hepatomegaly and hepatic steatosis. Electronically signed by: Arias Montenegro M.D. 03/19/2020 7:05 PM
[2020-03-19] MEDS: ZOLPIDEM TARTRATE 5 MG TAB PO SCH (20:32)
[2020-03-19] MEDS: CETIRIZINE HCL 10 MG TABLET PO SCH (20:32)
[2020-03-19] MEDS: MONTELUKAST SODIUM 10 MG TABLET PO SCH (20:32)
[2020-03-19] MEDS: BACLOFEN 10 MG TAB PO SCH (20:32)
[2020-03-19] MEDS: ALPRAZolam 0.5 MG TABLET PO SCH (20:32)
[2020-03-19] MEDS ORDERED: HYDROmorphone INJ 0.5 MG/0.5 ML SYR IV PRN (22:33)
[2020-03-19] MEDS ORDERED: KETOROLAC TROMETHAMINE 15 MG/ML VIAL IV ONE (22:33)
[2020-03-20 06:27] LABS: INR 1.6 (0.9-1.1); Prothrombin Time 16.1 Seconds (9.0-12.0)
[2020-03-20 06:45] LABS: Albumin Level 2.9 gm/dl (3.4-5.0); BUN Creatinine Ratio 26.5 (10-20); Bilirubin Direct 0.1 mg/dl (0-0.2); Calcium 8.5 mg/dl (8.5-10.1); Creatinine Clr Calc Pharmacy 145.4 ml/min; Est GFR (African American) 100.2; Est GFR (Non-African American) 86.5; Potassium 3.5 mmol/L (3.5-5.1)
[2020-03-20 06:48] LABS: Bilirubin,Total 0.5 mg/dl (0.2-1); Total Protein 7.1 gm/dl (6.4-8.2)
[2020-03-20] MEDS: ALBUT/IPRATROP 3MG/0.5MG NEB 3 ML VIAL INH SCH ×4 (07:08→19:07)
[2020-03-20] MEDS ORDERED: ENOXAPARIN INJ 40 MG/0.4 ML SYR SQ ONE (08:09)
[2020-03-20] MEDS: INSULIN ASPART 100 UNITS/ML 3 ML PEN SC SCH ×4 (08:09→21:54)
[2020-03-20] MEDS ORDERED: PHYTONADIONE 5 MG TAB PO STA (08:09)
[2020-03-20] MEDS: HYDROCODONE/ACETAMINOPHEN 10/325 TAB PO PRN ×2 (08:13→19:36)
[2020-03-20] MEDS: predniSONE 20 MG TAB PO SCH (08:14)
[2020-03-20] MEDS: SPIRONOLACTONE 25 MG TAB PO SCH (08:15)
[2020-03-20] MEDS: PANTOprazole 40 MG TAB PO SCH (08:15)
[2020-03-20] MEDS: FEXOFENADINE HCL 180 MG TAB PO SCH ×2 (08:15→16:09)
[2020-03-20] MEDS: LIDOCAINE 5% 1 PATCH TD SCH (08:15)
[2020-03-20] MEDS ORDERED: HYDROmorphone INJ 0.5 MG/0.5 ML SYR IV PRN (08:15)
[2020-03-20] MEDS: UMECLIDINIUM BROMIDE 62.5MCG/BLISTER 7 PUFFS/INHALER INH SCH (08:15)
[2020-03-20] MEDS: FLUTICASONE PROPIONATE NA SPR 16 GM BTL SCH (08:16)
[2020-03-20] MEDS: AMOXICILLIN/CLAVULANATE 875 MG TAB PO SCH ×2 (08:16→16:57)
[2020-03-20] MEDS: FLUTICASONE/VILANTEROL 200/25MCG 14 PUFFS/INHALER INH SCH (08:17)
[2020-03-20] MEDS ORDERED: predniSONE 20 MG TAB PO SCH (09:00)
[2020-03-20] MEDS ORDERED: ERGOCALCIFEROL 50,000 UNITS CAP PO SCH (09:00)
[2020-03-20] MEDS: FUROSEMIDE 40 MG in SYRINGE 1 ML IV SCH ×2 (09:10→16:08)
[2020-03-20] MEDS: DICLOFENAC SOD 1% GEL 100 GM TUBE EXT SCH ×4 (09:11→20:59)
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
[2020-03-20] MEDS ORDERED: KETOROLAC 30 MG/ML VIAL IV ONE (09:35)
--- NOTE | 2020-03-20 10:55 | Pulmonology Progress Note ---
Date of Service March 20, 2020 Assessment & Plan (1) Asthma exacerbation: CT chest 03/18/2020 personally reviewed: Patient has bilateral lower lobe atelectasis, diffuse mosaicism is appreciated. No clear infiltrate. --Acute asthma exacerbation in a patient who has severe persistent asthma Patient states that Solu-Medrol does not help her with her asthma exacerbation anymore but prednisone does Currently on prednisone and inhaled therapy O2 saturation keep between 90-92% --Morbid obesity BMI 57.7 Being on chronic prednisone is not helping her Losing weight will help her overall health along with asthma control as being on the heavier side will have resistant to ICS --Probable OLIMPIA/OHS Mallampati 4, morbid obesity Patient had home sleep study long time ago which showed mild OLIMPIA but since then patient has gained 80 pounds. This was likely underestimation of her sleep apnea. Patient will benefit from inpatient sleep study as an outpatient Plan: Patient from respiratory status doing better. Would recommend start tapering her prednisone starting tomorrow to 40 mg for 3 days and then back to her home dose. Continue with Breo and Incruse while she is in the hospital. Patient also takes mometasone inhaled on top of Symbicort at home this could be secondary to severe asthma that the patient has. But the patient is already on prednisone as well on a daily basis I do not like mometasone is playing a role in her symptoms. I would defer the management of inhalers to the pulmonary doctor she follows up with. My recommendation would be high-dose Symbicort and Spiriva on discharge along with lowest dose of prednisone possible. Today patient is agreeing to have a trial of BiPAP while she is in the hospital. It has been ordered to be used at night with pressure setting 10/6 FiO2 40% Please note the above document was generated using voice recognition software. It may contain grammatical, syntax or spelling errors. (2) Morbid obesity with BMI of 50.0-59.9, adult: Admission and Anticipated Discharge Date Admission Date: March 20, 2020 Subjective Patient seen and examined at bedside. No acute distress, no adverse events overnight. Shortness of breath she states has improved significantly. She is feeling much better since coming to the hospital. Only complaint today she has is epigastric and left upper quadrant pain. Patient had an MRCP done which showed that she has some defect. Plan is to have an ERCP done by the GI tomorrow. Patient denies any chest pain, able to do her activities while in the room. Good appetite, no nausea or vomiting. Review of Systems Review of Systems: All systems reviewed & are unremarkable except as noted in HPI & below Physical Exam Physical Exam: Constitutional: No acute distress, cushingoid features HEENT: EOMI, PERRLA, thick neck, Mallampati 4 no stridor Respiratory system: Decreased air entry bilaterally, no wheeze, no rhonchi, no crackles CVS: S1-S2 positive, no murmurs or gallops, distant heart sounds Abdomen: Soft, nontender, nondistended, positive bowel sounds x4, Mild epigastri c and LUQ pain pain Extremities: +2 pulses bilaterally radialis/ dorsalis pedis, no cyanosis, +1 pitting edema bilateral lower extremity Neuro: Awake alert oriented x3 Psych: Normal mood and affect G/U: No Schuler Skin: no rashes, warm and dry Lymphatic: no cervical or axillary lymphadenopathy Results & Data Results & Data ([facility]) Vital Signs (Past 12 Hours) Vital Signs Temp Pulse Pulse Resp BP BP Pulse Ox 03/20/20 07:11 68 18 97 03/20/20 06:51 36.3 C L 56 L 20 159/80 H 94 03/20/20 04:50 36.3 C L 62 18 172/80 H 97 03/20/20 01:03 76 03/20/20 00:00 65 16 97 03/19/20 23:22 36.5 C 70 18 174/80 H 92 03/18/20 11:50 03/20/20 05:37 PG Care Time/CCT Total # of Minutes Spent Total Time Spent with Patient: Total time spent is greater than 50% in coordination of care (as documented) at patient's floor/unit and/or counseling patient: Coding Level of Care Code 07327 Subseq Hosp Care Lvl 3 Diagnoses Asthma exacerbation J45.901 Morbid obesity with BMI of 50.0-59.9, adult E66.01; Z68.43
--- NOTE | 2020-03-20 12:05 | Hospitalist Progress Note ---
Date of Service March 20, 2020 Assessment & Plan (1) Dyspnea: Admitted for worsening dyspnea thought to be related to acute asthma exacerbation. I suspect her ongoing dyspnea is not necessarily all from asthma. But also with significant 50 pound weight gain in a short amount of time secondary to long- term prednisone use. proBNP is negative, echocardiogram checked and with preserved EF With anasarca on examination Now improving with IV lasix and prednisone 60mg daily I/O net neg 3.2L but weight same Lungs clearer and moving air better -Continue treatment for asthma as below -continue Diuresis with Lasix 40 mg IV bid until acid adjuster rises -Fluid restrict to 2000 mL's per day Daily weights, I's and O's -Strongly encouraged weight loss through calorie restriction as she is unable to exercise (2) Severe persistent asthma, poorly-controlled: She is on maximum therapy for her asthma including long-term steroids since 10/2019 and recently instituted dupilumab. She follows with [facility] pulmonary, Mickey Mejia, as well as former Dr Remigio Murphy who previously worked with [facility]. Dr Murphy now works in [place], [place]. Despite recent steroid burst and antibiotics she was no better prior to admission. CT chest without contrast showed groundglass opacities likely atelectasis, no pneumonia COVID-19 is negative Seen by pulmonology here who recommends continued prednisone 60 mg daily, thanks findings on imaging are related to atelectasis, recommends losing weight, recommends outpatient formal sleep study, continue with inhaled bronchodilators and changed Arnuity to Breo to add the LABA component (3) Choledocholithiasis: With a history of ascending cholangitis in 2018 with CBD stones requiring stent placement Here with intermittent abdominal pain in the epigastric region for the last week ALT and alkaline phosphatase are elevated but slightly improved from yesterday. Total bilirubin is normal. MRCP checked and confirms at least 3 intraluminal filling defects in the CBD with mild intrahepatic ductal dilatation She is afebrile and is without leukocytosis-no indication for emergent procedure -Discussed with GI - recommends ERCP tomorrow once INR < 1.5 -She is on Coumadin and this has been held since admission for elevated INR-we will continue to hold for procedure, give Vit K 2.5mg po x 1 today -Make n.p.o. after midnight for ERCP tomorrow if INR is acceptable -Is on Augmentin for previous leg cellulitis-we will continue this for now -increase IV dilaudid to 0.5mg IV q3 hrs prn pain -received 1 dose toradol this AM but hold off on further given upcoming ERCP (4) Supratherapeutic INR: likely due to antibiotic usage. Was above 4 on admission and is now down to 1.6 -Continue to hold coumadin. INR am. (5) Pre-diabetes: Hemoglobin A1c only 5.1% which is in the normal range placed on DM diet. Giving higher dose steroids however glucose is not significantly elevated Continue Accu-Cheks and NovoLog as needed (6) Obstructive sleep apnea of adult: Does not have CPAP could be contributing to refractory pulmonary symptoms. -Needs outpatient sleep study given significant weight gain recently (7) GERD without esophagitis: Chronic, uncontrolled GERD could contribute to asthma. -Continue PPI. (8) Allergic rhinitis: Cont all usual home meds (9) Pulmonary embolism: history of such, 2012. INR >3 on admission and now going for procedure hopefully tomorrow-- hold coumadin, INR am. -give Lovenox 40mg SQ x 1 this AM to cover while INR subtherapeutic, then HOLD further Lovenox for ERCP (10) Abnormal LFTs: Likely secondary to choledocholithiasis as above patient has had cholangitis in the past requiring CBD stent. Also with fatty liver -Follow LFTs in the morning (11) Morbid obesity with BMI of 50.0-59.9, adult: BMI 57 Encouraged significant weight loss Needs to get off of chronic prednisone (12) Weight gain: massive, 50+ pounds since early 2019, likely due to chronic steroids. TSH is normal Encouraged weight loss as above (13) Chronic back pain: consider dedicated imaging if worsens. likely to have severe DJD due to morbid obesity, could have compression fractures from osteoporosis. cont hydrocodone prn. appears to get narcotics about every other month from PCP's office per PDMP. (14) Anxiety: Continue Xanax as per home dosing (15) Vitamin D deficiency: Continue home vitamin D (16) DVT prophylaxis: INR still therapeutic, Coumadin on hold Has a history of DVT, added Lovenox SQ x 1 dose today as above Disposition-continued stay Admission and Anticipated Discharge Date Admission Date: March 20, 2020 Subjective Feeling much improved with her dyspnea today, is able to walk short distances around the room. Is very happy that the swelling in her feet/ankles is resolved with IV lasix. SHe is doing a good job and restricting her po fluids. Is continuing to have LUQ abd pain that is sharp and constant in nature, requesting increase dpain meds, says yen goode but only got one dose today due to ERCP for tomorrow. I discussed the case with GI who advised Vit K today and ERCP tomorrow. Tele with SB-NSR rates 50s-60s, PVCs Review of Systems Review of Systems: All systems reviewed & are unremarkable except as noted in HPI & below feels itchy but no rash No BM today Is making plenty of urine Physical Exam Constitutional: WD/WN, vitals as above + morbidly obese (Cushingoid appea murtaza) Eyes: + anicteric sclerae Neck: trachea midline, no thyromegaly Respiratory: normal respiratory effort Auscultation: + diminished lung sounds (throughout but improved air movement today); no crackles, no rhonchi and no wheezes Cardiovascular: Rate/Rhythm: regular rate and regular rhythm Heart Sounds: no murmur Extremities: + edema (now only trace pitting edema of the lower extremities bilaterally) Chest (Breasts): Chest: normal inspection of chest Gastrointestinal (Abdomen): Inspection/Auscultation: normal bowel sounds Percussion/Palpation: + abdomen tender (in LUQ w/o guarding or rebound) and abdomen soft Musculoskeletal: Extremities: no cyanosis and no clubbing Skin: + erythema (Flushing of the face) Neurologic: moves all extremities and awake; no focal motor deficits Psychiatric: A+Ox3, euthymic affect Lymphatic: no lymphedema Results & Data Results & Data ([facility]) Vital Signs (Past 12 Hours) Vital Signs Temp Pulse Pulse Resp BP Pulse Ox 03/20/20 11:35 36.5 C 72 18 159/91 H 96 03/20/20 07:11 68 18 97 03/20/20 06:51 36.3 C L 56 L 20 159/80 H 94 03/20/20 04:50 36.3 C L 62 18 172/80 H 97 03/20/20 01:03 76 03/20/20 00:00 65 16 97 Laboratory Results 03/20/20 03/20/20 03/20/20 Range/Units 11:52 06:34 05:37 PT 16.1 H (9.0-12.0) Seconds INR 1.6 H (0.9-1.1) Sodium (136-145) mmol/L Potassium (3.5-5.1) mmol/L Chloride (98-107) mmol/L Carbon Dioxide (21-32) mmol/L Anion Gap (3-11) BUN (7-18) mg/dl Creatinine (0.6-1.2) mg/dl Est Cr Clr Drug Dosing ml/min Est GFR ( Amer) Est GFR (Non-Af Amer) BUN/Creatinine Ratio (10-20) Glucose (70-99) mg/dl POC Glucose 152 H 102 H (70-99) mg/dl Calcium (8.5-10.1) mg/dl Total Bilirubin (0.2-1) mg/dl Direct Bilirubin (0-0.2) mg/dl AST (15-37) U/L ALT (12-78) U/L Alkaline Phosphatase (45-117) U/L Total Protein (6.4-8.2) gm/dl Albumin (3.4-5.0) gm/dl Lipase (73-393) U/L 03/20/20 03/19/20 Range/Units 05:37 20:03 PT (9.0-12.0) Seconds INR (0.9-1.1) Sodium 137 (136-145) mmol/L Potassium 3.5 (3.5-5.1) mmol/L Chloride 99 (98-107) mmol/L Carbon Dioxide 29 (21-32) mmol/L Anion Gap 9.0 (3-11) BUN 21 H D (7-18) mg/dl Creatinine 0.81 (0.6-1.2) mg/dl Est Cr Clr Drug Dosing 145.4 ml/min Est GFR ( Amer) 100.2 Est GFR (Non-Af Amer) 86.5 BUN/Creatinine Ratio 26.5 H (10-20) Glucose 103 H (70-99) mg/dl POC Glucose 113 H (70-99) mg/dl Calcium 8.5 (8.5-10.1) mg/dl Total Bilirubin 0.5 (0.2-1) mg/dl Direct Bilirubin 0.1 (0-0.2) mg/dl AST 27 (15-37) U/L ALT 88 H (12-78) U/L Alkaline Phosphatase 120 H (45-117) U/L Total Protein 7.1 (6.4-8.2) gm/dl Albumin 2.9 L (3.4-5.0) gm/dl Lipase 74 (73-393) U/L PG Care Time/CCT Total # of Minutes Spent Total Time Spent with Patient: Total time spent is greater than 50% in coordination of care (as documented) at patient's floor/unit and/or counseling patient: Coding Level of Care Code 68896 Subseq Hosp Care Lvl 3 Diagnoses Dyspnea R06.00 Severe persistent asthma, poorly-controlled J45.51 Asthma complication type: with acute exacerbation Choledocholithiasis K80.50 Supratherapeutic INR R79.1 Pre-diabetes R73.03 Obstructive sleep apnea of adult G47.33 GERD without esophagitis K21.9 Allergic rhinitis J. Allergic rhinitis trigger: other Allergic rhinitis seasonality: unspecified Pulmonary embolism I26.99 Pulmonary embolism type: other Chronicity: unspecified Acute cor pulmonale presence: unspecified Abnormal LFTs R94.5 Morbid obesity with BMI of 50.0-59.9, adult E66.01; Z68.43 Weight gain R63.5 Chronic back pain M54.9; G89.29 Back pain laterality: left Back pain location: back pain in unspecified location Anxiety F41.9 Vitamin D deficiency E55.9 DVT prophylaxis Z29.9 (1) Severe persistent asthma, poorly-controlled Asthma complication type: with acute exacerbation Qualified Code(s): J45.51 - Severe persistent asthma with (acute) exacerbation (2) Allergic rhinitis Allergic rhinitis trigger: other Allergic rhinitis seasonality: unspecified Qualified Code(s): J - Other allergic rhinitis (3) Pulmonary embolism Pulmonary embolism type: other Chronicity: unspecified Acute cor pulmonale presence: unspecified Qualified Code(s): I26.99 - Other pulmonary embolism without acute cor pulmonale (4) Chronic back pain Back pain laterality: left Back pain location: back pain in unspecified location Qualified Code(s): M54.9 - Dorsalgia, unspecified; G89.29 - Other chronic pain
[2020-03-20] MEDS ORDERED: POTASSIUM CHLORIDE 20 MEQ TABCR PO ONE (12:15)
[2020-03-20] MEDS: HYDROmorphone INJ 0.5 MG/0.5 ML SYR IV PRN ×3 (12:23→21:22)
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
[2020-03-20 17:07] LABS: INR 1.3 (0.9-1.1)
[2020-03-20] MEDS: ZOLPIDEM TARTRATE 5 MG TAB PO SCH (20:57)
[2020-03-20] MEDS: MONTELUKAST SODIUM 10 MG TABLET PO SCH (20:57)
[2020-03-20] MEDS: BACLOFEN 10 MG TAB PO SCH (20:57)
[2020-03-20] MEDS: CETIRIZINE HCL 10 MG TABLET PO SCH (20:57)
[2020-03-20] MEDS: ALPRAZolam 0.5 MG TABLET PO SCH (20:57)
[2020-03-21] MEDS: ALBUT/IPRATROP 3MG/0.5MG NEB 3 ML VIAL INH SCH ×4 (00:53→19:30)
[2020-03-21] MEDS: HYDROmorphone INJ 0.5 MG/0.5 ML SYR IV PRN ×3 (05:51→21:55)
[2020-03-21 06:57] LABS: INR 1.1 (0.9-1.1); Prothrombin Time 11.4 Seconds (9.0-12.0)
[2020-03-21 07:19] LABS: BUN Creatinine Ratio 30.3 (10-20); Calcium 9.2 mg/dl (8.5-10.1); Creatinine Clr Calc Pharmacy 153.7 ml/min; Est GFR (African American) 108.3; Est GFR (Non-African American) 93.4; Magnesium 2.6 mg/dl (1.8-2.4); Potassium 3.9 mmol/L (3.5-5.1)
[2020-03-21] MEDS: INSULIN ASPART 100 UNITS/ML 3 ML PEN SC SCH ×4 (07:24→22:27)
[2020-03-21] MEDS: HYDROCODONE/ACETAMINOPHEN 10/325 TAB PO PRN ×3 (07:32→23:52)
[2020-03-21] MEDS: LIDOCAINE 5% 1 PATCH TD SCH (07:36)
[2020-03-21] MEDS: FUROSEMIDE 40 MG in SYRINGE 1 ML IV SCH (07:36)
[2020-03-21] MEDS: DICLOFENAC SOD 1% GEL 100 GM TUBE EXT SCH ×4 (07:36→21:28)
[2020-03-21] MEDS: FLUTICASONE PROPIONATE NA SPR 16 GM BTL SCH (07:37)
[2020-03-21] MEDS: UMECLIDINIUM BROMIDE 62.5MCG/BLISTER 7 PUFFS/INHALER INH SCH (07:37)
[2020-03-21] MEDS: FLUTICASONE/VILANTEROL 200/25MCG 14 PUFFS/INHALER INH SCH (07:37)
[2020-03-21] MEDS ORDERED: INDOMETHACIN 50 MG SUPP PR ONE ×3 (08:00→13:59)
--- NOTE | 2020-03-21 09:17 | Gastroenterology Progress Note ---
Date of Service March 21, 2020 Assessment & Plan (1) Choledocholithiasis: Pt is a 49 y/o female currently admitted for asthma exacerbation, was c/o LUQ abd pain with eating. Hx of s/p cholecystectomy and multiple ERCP for choledocholithiasis removal last done in 2018. LFTs up, lipase normal, and MRCP obtained 03/19 showed filling defect in CBD consistent w choledocholithiasis, hepatomegaly, hepatic steatosis. She was on Coumadin for hx of PEs, this had been held for several days, INR this AM 1.1 after Vit K administration - Keep NPO for ERCP in OR by Dr. Emilie Porter today - Trend LFTs - Asthma managment per primary team/Pulmonary Admission and Anticipated Discharge Date Admission Date: March 20, 2020 Supervising Physician Co-Signing Physician Notes I saw and evaluated the patient. She presents with abdominal pain and imaging that shows recurrent CBD stones. We have disscussed the risks to include bleeding, infection, perforation, pain, pancreatitis, and failed biliary canulation. Plan ERCP today Subjective Pt w persistent epigastric and LUQ abd pain, mild nausea, no fevers but some chills last night. She had been NPO for ERCP procedure today Review of Systems Review of Systems: All systems reviewed & are unremarkable except as noted in HPI & below Physical Exam Constitutional: WD/WN, vitals as above + morbidly obese, well groomed, cooperative and comfortable Eyes: PERRL, conjunctivae normal, anicteric sclerae ENMT: external ear and nose normal, oropharynx normal Respiratory: normal respiratory effort, lungs clear to auscultation Cardiovascular: RRR, no murmur, no edema Gastrointestinal (Abdomen): normal bowel sounds, soft, nontender, no hepatosplenomegaly Inspection/Auscultation: + hypoactive bowel sounds Percussion/Palpation: + abdomen tender (LUQ) and abdomen soft Skin: no rashes, warm and dry no jaundice Psychiatric: A+Ox3, euthymic affect Lymphatic: no lymphedema Results & Data ([facility]) Vital Signs (Past 12 Hours) Vital Signs Temp Pulse Pulse Pulse Resp BP BP 03/21/20 07:40 36.5 C 70 20 168/102 H 03/21/20 06:58 78 20 03/21/20 05:02 36.6 C 65 18 135/71 03/21/20 04:53 60 20 03/21/20 00:55 71 15 03/21/20 00:54 71 15 03/21/20 00:13 70 03/20/20 22:59 36.9 C 73 20 149/91 H 03/20/20 21:51 63 23 Pulse Ox 03/21/20 07:40 97 03/21/20 06:58 99 03/21/20 05:02 97 03/21/20 04:53 99 03/21/20 00:55 100 03/21/20 00:54 100 03/21/20 00:13 03/20/20 22:59 97 03/20/20 21:51 100
[2020-03-21 09:47] LABS: Albumin Level 2.9 gm/dl (3.4-5.0); Bilirubin Direct 0.1 mg/dl (0-0.2); Bilirubin,Total 0.5 mg/dl (0.2-1)
--- NOTE | 2020-03-21 13:16 | Hospitalist Progress Note ---
Date of Service March 21, 2020 Assessment & Plan (1) Dyspnea: Admitted for worsening dyspnea thought to be related to acute asthma exacerbation. I suspect her ongoing dyspnea is not necessarily all from asthma. But also with significant 50 pound weight gain in a short amount of time secondary to long- term prednisone use. proBNP is negative, echocardiogram checked and with preserved EF With anasarca on examination Now much improved with IV lasix and prednisone burst I/O net neg 5.5L and weight down 2.2 kg Lungs clearer and moving air better -Continue treatment for asthma as below -continue Diuresis with Lasix 40 mg IV bid until scholarship counselor rises -Fluid restrict to 2000 mL's per day Daily weights, I's and O's -Strongly encouraged weight loss through calorie restriction as she is unable to exercise (2) Severe persistent asthma, poorly-controlled: She is on maximum therapy for her asthma including long-term steroids since 10/2019 and recently instituted dupilumab. She follows with [facility] pulmonary, Mickey Mejia, as well as former Dr Remigio Murphy who previously worked with [facility]. Dr Murphy now works in [place], [place]. Despite recent steroid burst and antibiotics she was no better prior to admission. CT chest without contrast showed groundglass opacities likely atelectasis, no pneumonia COVID-19 is negative Seen by pulmonology here who recommends continued prednisone but taper down to 40 mg daily x 2 more days then back to lowest possible dose -he thinks findings on imaging are related to atelectasis, recommends losing weight, recommends outpatient formal sleep study -continue with inhaled bronchodilators and changed Arnuity to Breo to add the LABA component -home on high dose SYmbicort and SPiriva, dc mometasone Needs nebulizer for home se given severe, persistent asthma-Rx given Needs bariatric wheeled walker with seat and hand brakes as she can only walk short distances before requiring rest to catch her breath and for severe lower back pain. Rx given (3) Choledocholithiasis: With a history of ascending cholangitis in 2018 with CBD stones requiring stent placement Here with intermittent abdominal pain in the epigastric region for the last week ALT and alkaline phosphatase are elevated but slightly improved from yesterday. Total bilirubin is normal. MRCP checked and confirms at least 3 intraluminal filling defects in the CBD with mild intrahepatic ductal dilatation She is afebrile and is without leukocytosis-no indication for emergent procedure -COnsulted GI - for ERCP today now that INR down -Is on Augmentin for previous leg cellulitis-we will continue this for now -continue IV dilaudid to 0.5mg IV q3 hrs prn pain -will find out when ok to restart Coumadin as per GI (4) Supratherapeutic INR: likely due to antibiotic usage. Was above 4 on admission and is now down to 1.0 -Continue to hold coumadin. INR am. (5) Pre-diabetes: Hemoglobin A1c only 5.1% which is in the normal range placed on DM diet. Giving higher dose steroids however glucose is not significantly elevated Continue Accu-Cheks and NovoLog as needed (6) Obstructive sleep apnea of adult: Does not have CPAP at home currently Tolerated BiPAP at 12/6 here and felt she slept the best she has in a long time could be contributing to refractory pulmonary symptoms. -Needs outpatient sleep study given significant weight gain recently (7) GERD without esophagitis: Chronic, uncontrolled GERD could contribute to asthma. -Continue PPI. (8) Allergic rhinitis: Cont all usual home meds (9) Pulmonary embolism: history of such, 2012. INR >3 on admission and now going for procedure -- hold coumadin, INR am. restart coumadin when ok with GI (10) Abnormal LFTs: Likely secondary to choledocholithiasis as above patient has had cholangitis in the past requiring CBD stent. Also with fatty liver -Follow LFTs in the morning (11) Morbid obesity with BMI of 50.0-59.9, adult: BMI 57 Encouraged significant weight loss Needs to get off of chronic prednisone (12) Weight gain: massive, 50+ pounds since early 2019, likely due to chronic steroids. TSH is normal Encouraged weight loss as above (13) Chronic back pain: consider dedicated imaging if worsens. likely to have severe DJD due to morbid obesity, could have compression fractures from osteoporosis. cont hydrocodone prn. appears to get narcotics about every other month from PCP's office per PDMP. (14) Anxiety: Continue Xanax as per home dosing (15) Vitamin D deficiency: Continue home vitamin D (16) DVT prophylaxis: Coumadin on hold Has a history of DVT, restart coumadin and bridge with Lovenox when ok wih GI Disposition-continued stay Admission and Anticipated Discharge Date Admission Date: March 20, 2020 Subjective Still having ongoing abd pain in LUQ. SOB is much less, is diuresing. Denies chest pain. Was able to tolerate the BiPAP last night and said she "slept like a rock" Review of Systems Review of Systems: All systems reviewed & are unremarkable except as noted in HPI & below Physical Exam Constitutional: WD/WN, vitals as above + morbidly obese (Cushingoid appearance) Eyes: + anicteric sclerae Neck: trachea midline, no thyromegaly Respiratory: normal respiratory effort Auscultation: + diminished lung sounds (throughout but improved air movement today); no crackles, no rhonchi and no wheezes Cardiovascular: Rate/Rhythm: regular rate and regular rhythm Heart Sounds: no murmur Extremities: + edema (now only trace pitting edema of the lower extremities bilaterally) Chest (Breasts): Chest: normal inspection of chest Gastrointestinal (Abdomen): normal bowel sounds, soft, nontender, no hepatosplenomegaly Inspection/Auscultation: normal bowel sounds Percussion/Palpation: + abdomen tender (in LUQ w/o guarding or rebound) and abdomen soft Musculoskeletal: Extremities: no cyanosis and no clubbing Skin: + erythema (Flushing of the face) Neurologic: moves all extremities and awake; no focal motor deficits Psychiatric: A+Ox3, euthymic affect Lymphatic: no lymphedema Results & Data Results & Data ([facility]) Vital Signs (Past 12 Hours) Vital Signs Temp Pulse Pulse Resp BP BP Pulse Ox 03/21/20 11:26 36.5 C 71 20 154/89 H 97 03/21/20 07:40 36.5 C 70 20 168/102 H 97 03/21/20 06:58 78 20 99 03/21/20 05:02 36.6 C 65 18 135/71 97 03/21/20 04:53 60 20 99 PG Care Time/CCT Total # of Minutes Spent Total Time Spent with Patient: Total time spent is greater than 50% in coordination of care (as documented) at patient's floor/unit and/or counseling patient: Coding Level of Care Code 53089 Subseq Hosp Care Lvl 3 Diagnoses Dyspnea R06.00 Severe persistent asthma, poorly-controlled J45.51 Asthma complication type: with acute exacerbation Choledocholithiasis K80.50 Supratherapeutic INR R79.1 Pre-diabetes R73.03 Obstructive sleep apnea of adult G47.33 GERD without esophagitis K21.9 Allergic rhinitis J30.89 Allergic rhinitis seasonality: unspecified Allergic rhinitis trigger: other Pulmonary embolism I26.99 Acute cor pulmonale presence: unspecified Chronicity: unspecified Pulmonary embolism type: other Abnormal LFTs R94.5 Morbid obesity with BMI of 50.0-59.9, adult E66.01; Z68.43 Weight gain R63.5 Chronic back pain M54.9; G89.29 Back pain laterality: left Back pain location: back pain in unspecified location Anxiety F41.9 Vitamin D deficiency E55.9 DVT prophylaxis Z29.9 (1) Severe persistent asthma, poorly-controlled Asthma complication type: with acute exacerbation Qualified Code(s): J45.51 - Severe persistent asthma with (acute) exacerbation (2) Chronic back pain Back pain laterality: left Back pain location: back pain in unspecified location Qualified Code(s): M54.9 - Dorsalgia, unspecified; G89.29 - Other chronic pain (3) Pulmonary embolism Acute cor pulmonale presence: unspecified Chronicity: unspecified Pulmonary embolism type: other Qualified Code(s): I26.99 - Other pulmonary embolism without acute cor pulmonale (4) Allergic rhinitis Allergic rhinitis seasonality: unspecified Allergic rhinitis trigger: other Qualified Code(s): J30.89 - Other allergic rhinitis
[2020-03-21] MEDS ORDERED: CYANOCOBALAMIN 1000 MCG/ML VIAL IM ONE (13:17)
[2020-03-21] MEDS ORDERED: PROPOFOL IV EMULSION 10 MG/ML 20 ML VIAL IV ONE (13:32)
[2020-03-21] MEDS ORDERED: ONDANSETRON INJ 2 MG/ML 2 ML VIAL ONE (13:33)
[2020-03-21] MEDS ORDERED: DEXAMETHASONE SOD INJ 4 MG/ML VIAL ONE (13:33)
[2020-03-21] MEDS ORDERED: SUCCINYLCHOLINE CHLORIDE 20 MG/ML 10 ML VIAL IV ONE (13:33)
[2020-03-21] MEDS ORDERED: LIDOCAINE HCL 2% 2 ML VIAL/AMP(20MG/ML) INFIL ONE (13:33)
[2020-03-21] MEDS ORDERED: MIDAZOLAM HCL 1 MG/ML 2ML VIAL ONE (13:37)
[2020-03-21] MEDS ORDERED: fentaNYL citrate 100 MCG/2 ML VIAL ONE (13:39)
[2020-03-21] MEDS ORDERED: IOVERSOL 50ml IV ONE (13:45)
--- NOTE | 2020-03-21 13:51 | History & Physical Bridge Note ---
Date of Service March 21, 2020 History & Physical Bridge Note I have examined the patient, reviewed the History & Physical and in the interval since the performance of the History & Physical I have noted the following changes of clinical significance: no changes noted. We have discussed the risks of ERCP to include bleeding, infection, perforation, pain, pancreatitis,
[2020-03-21] MEDS ORDERED: ePHEDrine sulfate 50 MG/ML AMP IV PRN (14:07)
[2020-03-21] MEDS ORDERED: PROMETHAZINE HCL 12.5 MG in SODIUM CHLORIDE 0.9% 50 ML IV PRN (14:07)
[2020-03-21] MEDS ORDERED: HYDROmorphone INJ 2 MG/ML SYR/VIAL IV PRN (14:07)
[2020-03-21] MEDS ORDERED: ATROPINE SULFATE 0.1 MG/ML 10ML SYR IV PRN (14:07)
[2020-03-21] MEDS ORDERED: ONDANSETRON INJ 2 MG/ML 2 ML VIAL IV PRN (14:07)
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
--- NOTE | 2020-03-21 14:33 | Pulmonology Progress Note ---
Date of Service March 21, 2020 Assessment & Plan (1) Asthma exacerbation: CT chest 03/18/2020 personally reviewed: Patient has bilateral lower lobe atelectasis, diffuse mosaicism is appreciated. No clear infiltrate. --Acute asthma exacerbation in a patient who has severe persistent asthma Patient states that Solu-Medrol does not help her with her asthma exacerbation anymore but prednisone does Currently on prednisone and inhaled therapy O2 saturation keep between 90-92% --Morbid obesity BMI 57.7 Being on chronic prednisone is not helping her Losing weight will help her overall health along with asthma control as being on the heavier side will have resistant to ICS --Probable OLIMPIA/OHS Mallampati 4, morbid obesity Patient had home sleep study long time ago which showed mild OLIMPIA but since then patient has gained 80 pounds. This was likely underestimation of her sleep apnea. Patient will benefit from inpatient sleep study as an outpatient Plan: Continue to taper Prednisone 40 mg for 2 days and then back to her home dose. Continue with Breo and Incruse while she is in the hospital. Patient also takes mometasone inhaled on top of Symbicort at home this could be secondary to severe asthma that the patient has. But the patient is already on prednisone as well on a daily basis I do not think mometasone is playing a role in her symptoms. I would defer the management of inhalers to the pulmonary doctor she follows up with. My recommendation would be high-dose Symbicort and Spiriva on discharge along with lowest dose of prednisone possible. Patient did benefit from BiPAP use. Recommend in lab sleep study for the patient as an outpatient so that she can get a CPAP/BiPAP machine for her sleep apnea. Patient is doing well from pulmonary perspective. No further intervention. Will sign off, please recall if needed. Please note the above document was generated using voice recognition software. It may contain grammatical, syntax or spelling errors. (2) Morbid obesity with BMI of 50.0-59.9, adult: Admission and Anticipated Discharge Date Admission Date: March 20, 2020 Subjective Patient seen and examined at bedside. No acute distress, no adverse events overnight. Respiratory status ramos she is feeling much better. Shortness of breath is i mproved. She used the BiPAP overnight and this helped her a lot. She is planned to have ERCP done today. She does complain of abdominal pain epigastric and left upper quadrant. Review of Systems Review of Systems: All systems reviewed & are unremarkable except as noted in HPI & below Physical Exam Physical Exam: Constitutional: No acute distress, cushingoid features HEENT: EOMI, PERRLA, thick neck, Mallampati 4 no stridor Respiratory system: Decreased air entry bilaterally, no wheeze, no rhonchi, no crackles CVS: S1-S2 positive, no murmurs or gallops, distant heart sounds Abdomen: Soft, nontender, nondistended, positive bowel sounds x4, Mild epigastric and LUQ pain pain Extremities: +2 pulses bilaterally radialis/ dorsalis pedis, no cyanosis, +1 pitting edema bilateral lower extremity Neuro: Awake alert oriented x3 Psych: Normal mood and affect G/U: No Schuler Skin: no rashes, warm and dry Lymphatic: no cervical or axillary lymphadenopathy Results & Data Results & Data ([facility]) Vital Signs (Past 12 Hours) Vital Signs Temp Pulse Pulse Resp BP BP Pulse Ox 03/21/20 13:13 67 18 96 03/21/20 11:26 36.5 C 71 20 154/89 H 97 03/21/20 07:40 36.5 C 70 20 168/102 H 97 03/21/20 06:58 78 20 99 03/21/20 05:02 36.6 C 65 18 135/71 97 03/21/20 04:53 60 20 99 03/18/20 11:50 03/21/20 06:36 PG Care Time/CCT Total # of Minutes Spent Total Time Spent with Patient: Total time spent is greater than 50% in coordination of care (as documented) at patient's floor/unit and/or counseling patient: Coding Level of Care Code 93045 Subseq Hosp Care Lvl 3 Diagnoses Asthma exacerbation J45.901 Morbid obesity with BMI of 50.0-59.9, adult E66.01; Z68.43
[2020-03-21] MEDS ORDERED: HydrALAZINE HCL 20 MG/ML VIAL ONE (14:44)
--- NOTE | 2020-03-21 15:03 | Post Operative Brief Note ---
Immediate Post Op Note v1 Date of Surgery March 21, 2020 Pre & Post Diagnosis Operation Date: 03/21/20 13:30 Pre-Op Diagnosis: Choledocholithiasis Post-Op Diagnosis: Choledocholithiasis I identified the patient and participated in the time-out.: Yes Procedure Operation Date: 03/21/20 13:30 Actual Procedures p Endoscopic Retrograde Cholangiopancreatogram(Not Applicable) - Emilie Porter Surgeon Emilie Porter Marketing Analyst none Estimated Blood Loss 0 Findings Consistent with Post-Op Diagnosis
--- NOTE | 2020-03-21 15:06 | GI REPORT ---
Patient Name: Jessica Sheppard Procedure Date: 03/21/2020 2:03 PM Date of : 1970 Admit Type: Inpatient Age: 49 Gender: Female Attending MD: Emilie Porter DO Procedure: ERCP Providers: Emliie Porter DO Referring MD: Jody Henao Md, Ramon العراقي Indications: Abdominal pain of suspected biliary origin, Abnormal MRCP Medicines: General Anesthesia Complications: No immediate complications. Estimated blood loss: Minimal. Estimated Blood Loss: Estimated blood loss was minimal. Procedure: Pre-Anesthesia Assessment: - Prior to the procedure, a History and Physical was performed, and patient medications, allergies and sensitivities were reviewed. The patient's tolerance of previous anesthesia was reviewed. - The risks and benefits of the procedure and the sedation options and risks were discussed with the patient. All questions were answered and informed consent was obtained. - Patient identification and proposed procedure were verified prior to the procedure by the physician, the nurse and the hospitalist medical director. The procedure was verified in the procedure room. - Pre-procedure physical examination revealed no contraindications to sedation. - ASA Grade Assessment: IV - A patient with severe systemic disease that is a constant threat to life. - The anesthesia plan was to use general anesthesia. - Immediately prior to administration of medications, the patient was re-assessed for adequacy to receive sedatives. - The heart rate, respiratory rate, oxygen saturations, blood pressure, adequacy of pulmonary ventilation, and response to care were monitored throughout the procedure. - The physical status of the patient was re-assessed after the procedure. After obtaining informed consent, the scope was passed under direct vision. Throughout the procedure, the patient's blood pressure, pulse, and oxygen saturations were monitored continuously. The Scope was introduced through the mouth, and advanced to the duodenum and used to inject contrast into the bile duct. The ERCP was accomplished without difficulty. The patient tolerated the procedure well. Findings: A marine structural welder film of the abdomen was obtained. Surgical clips, consistent with a previous cholecystectomy, were seen in the area of the right upper quadrant of the abdomen. The esophagus was successfully intubated under direct vision without detailed examination of the pharynx, larynx, and associated structures, and upper GI tract. The upper GI tract was grossly normal. A biliary sphincterotomy had been performed. The sphincterotomy appeared open. The bile duct was deeply cannulated with the short-nosed traction sphincterotome and guidewire, a 0.35 wire was used initially, however it would not pass beyond the cystic duct takeoff, this was changed to a 0.025 in wire which was passed into the upper biliary tree. Contrast was injected. I personally interpreted the bile duct images. Contrast extended to the entire biliary tree. A long cystic duct stump originated in the in the biliary system. The main bile duct was moderately dilated. The largest diameter was 10 mm. The lower third of the main bile duct and middle third of the main bile duct contained filling defect(s) thought to be a stone and sludge. To discover objects, the biliary tree was swept with a 15 mm balloon starting at the bifurcation. Sludge was swept from the duct. Many green pigmented stones were removed. No stones remained on a final cholangiogram. The endoscope was withdrawn from the patient. Indomethacin 100 mg was given via suppository to decrease the risk of post-ERCP pancreatitis (PEP). The total fluoroscopy exposure time was 3 minutes and 54 seconds. Impression: - Prior biliary sphincterotomy appeared open. - The entire main bile duct was moderately dilated. - The patient has had a cholecystectomy. - Choledocholithiasis was found. Complete removal was accomplished by balloon extraction. - Indomethacin given to decrease risk of post-ERCP pancreatitis. Recommendation: - Return patient to [facility] for [facility] care. - Clear liquid diet today. - Observe patient's clinical course following today's ERCP with therapeutic intervention. Emilie Porter D.O. Emilie Porter, 03/21/2020 3:06:03 PM This report has been signed electronically. Note Initiated On: 03/21/2020 2:03 PM Number of Addenda: 0 I attest to the content of the Intraoperative Record and orders documented therein, exceptions below {[id number]}
--- NOTE | 2020-03-21 15:14 | Fluoroscopy Report ---
[place] ERCP biliary ductal HISTORY: 49 years-old Female ERCP IN OR choledocholithiasis COMPARISON: MRCP 03/19/2020 TECHNIQUE: 14 spot fluoroscopic images of the abdominal right upper quadrant were obtained utilizing 3 minutes 54.1 seconds fluoroscopy time FINDINGS: Endoscope is noted within the duodenum. Cannulation of the common bile duct. Retrograde injection of contrast demonstrates common bile duct dilation. Multiple filling defects of the distal common bile d uct suggest choledocholithiasis. Balloon sweep of the common bile duct. Cholecystectomy clips. Contra st flows from the common bile duct into the duodenum. No intrahepatic biliary ductal dilation. No ret ained filling defects identified on the later images. IMPRESSION: Fluoroscopic assistance as above. Please see procedural report for further details. ACT 112: Negative or not required by law. The above report was generated using voice recognition software. It may contain grammatical, syntax o r spelling errors. Electronically signed by: Chuck Dennis M.D. 03/21/2020 3:13 PM
[2020-03-21] MEDS: fentaNYL citrate 100 MCG/2 ML VIAL IV PRN ×3 (15:38→16:02)
--- NOTE | 2020-03-21 16:12 | Anesthesiology Progress Note ---
Date of Service March 21, 2020 Anesthesia Post Procedure Vital Signs Vital Signs: Temp Pulse Pulse Pulse Pulse Resp BP 03/21/20 16:05 90 16 03/21/20 15:55 89 13 03/21/20 15:45 83 12 03/21/20 15:35 84 16 03/21/20 15:25 84 17 03/21/20 15:15 83 21 03/21/20 15:07 36.7 C 93 H 18 03/21/20 13:13 67 18 03/21/20 11:26 36.5 C 71 20 154/89 H 03/21/20 07:40 36.5 C 70 20 168/102 H 03/21/20 06:58 78 20 03/21/20 05:02 36.6 C 65 18 03/21/20 04:53 60 20 03/21/20 00:55 71 15 03/21/20 00:54 71 15 03/21/20 00:13 70 03/20/20 22:59 36.9 C 73 20 03/20/20 21:51 63 23 03/20/20 19:07 83 18 BP Pulse Ox 03/21/20 16:05 167/84 H 97 03/21/20 15:55 177/77 H 99 03/21/20 15:45 146/90 H 96 03/21/20 15:35 143/77 H 98 03/21/20 15:25 154/88 H 100 03/21/20 15:15 146/90 H 100 03/21/20 15:07 167/88 H 100 03/21/20 13:13 96 03/21/20 11:26 97 03/21/20 07:40 97 03/21/20 06:58 99 03/21/20 05:02 135/71 97 03/21/20 04:53 99 03/21/20 00:55 100 03/21/20 00:54 100 03/21/20 00:13 03/20/20 22:59 149/91 H 97 03/20/20 21:51 100 03/20/20 19:07 97 Pain Intensity Right Lower Back: Pain Intensity: 6 Left Abdomen: Pain Intensity: 6 Transfer of Care Handoff Completed per policy Notes Mental Status: alert / awake / arousable Patient Amnestic to Procedure: Yes Nausea / Vomiting: adequately controlled Pain: adequately controlled Airway Patency, RR, SpO2: stable & adequate BP & HR: stable & adequate Hydration State: stable & adequate Anesthetic Complications: no major complications apparent
[2020-03-21] MEDS ORDERED: POTASSIUM CHLORIDE 20 MEQ TABCR PO ONE (17:00)
[2020-03-21] MEDS: predniSONE 20 MG TAB PO SCH (17:04)
[2020-03-21] MEDS: PANTOprazole 40 MG TAB PO SCH (17:19)
[2020-03-21] MEDS: FEXOFENADINE HCL 180 MG TAB PO SCH ×2 (17:19→17:22)
[2020-03-21] MEDS: SPIRONOLACTONE 25 MG TAB PO SCH (17:19)
[2020-03-21] MEDS: AMOXICILLIN/CLAVULANATE 875 MG TAB PO SCH ×2 (17:20→17:22)
[2020-03-21] MEDS: FUROSEMIDE 40 MG in SYRINGE 0 ML IV SCH (18:31)
[2020-03-21] MEDS: BACLOFEN 10 MG TAB PO SCH (21:05)
[2020-03-21] MEDS: ZOLPIDEM TARTRATE 5 MG TAB PO SCH (21:05)
[2020-03-21] MEDS: ALPRAZolam 0.5 MG TABLET PO SCH (21:05)
[2020-03-21] MEDS: MONTELUKAST SODIUM 10 MG TABLET PO SCH (21:27)
[2020-03-21] MEDS: CETIRIZINE HCL 10 MG TABLET PO SCH (21:27)
[2020-03-22] MEDS: ALBUT/IPRATROP 3MG/0.5MG NEB 3 ML VIAL INH SCH ×3 (01:03→13:20)
[2020-03-22 07:13] LABS: Prothrombin Time 10.8 Seconds (9.0-12.0)
--- NOTE | 2020-03-22 07:49 | Anesthesiology Progress Note ---
Date of Service March 22, 2020 Anesthesia Post Procedure Vital Signs Vital Signs: Temp Pulse Pulse Pulse Resp BP BP 03/22/20 06:57 54 L 22 03/22/20 04:00 36.8 C 59 L 20 143/80 H 03/22/20 03:20 54 L 18 03/22/20 01:03 64 24 03/22/20 00:21 71 03/21/20 23:20 61 24 03/21/20 22:59 36.6 C 62 129/77 03/21/20 22:22 72 03/21/20 19:33 84 18 03/21/20 19:13 36.8 C 90 149/82 H 03/21/20 19:08 36.8 C 61 18 119/67 03/21/20 18:12 36.3 C L 90 14 126/72 03/21/20 17:13 37.0 C 85 18 140/80 03/21/20 16:25 36.3 C L 82 16 175/82 H 03/21/20 16:15 84 21 170/75 H 03/21/20 16:05 90 16 167/84 H 03/21/20 15:55 89 13 177/77 H 03/21/20 15:45 83 12 146/90 H 03/21/20 15:35 84 16 143/77 H 03/21/20 15:25 84 17 154/88 H 03/21/20 15:15 83 21 146/90 H 03/21/20 15:07 36.7 C 93 H 18 167/88 H 03/21/20 13:13 67 18 03/21/20 11:26 36.5 C 71 20 154/89 H Pulse Ox 03/22/20 06:57 98 03/22/20 04:00 97 03/22/20 03:20 98 03/22/20 01:03 96 03/22/20 00:21 03/21/20 23:20 98 03/21/20 22:59 95 03/21/20 22:22 03/21/20 19:33 93 03/21/20 19:13 96 03/21/20 19:08 100 03/21/20 18:12 93 03/21/20 17:13 95 03/21/20 16:25 98 03/21/20 16:15 98 08/13/20 16:05 97 03/21/20 15:55 99 03/21/20 15:45 96 03/21/20 15:35 98 03/21/20 15:25 100 03/21/20 15:15 100 03/21/20 15:07 100 03/21/20 13:13 96 03/21/20 11:26 97 Pain Intensity Right Lower Back: Pain Intensity: 5 Left Abdomen: Pain Intensity: 6 Notes Mental Status: alert / awake / arousable and participated in evaluation Patient Amnestic to Procedure: Yes Nausea / Vomiting: adequately controlled Pain: adequately controlled Airway Patency, RR, SpO2: stable & adequate BP & HR: stable & adequate Hydration State: stable & adequate Anesthetic Complications: no major complications apparent and Pt Satisfied with anesthetic care
[2020-03-22] MEDS: FEXOFENADINE HCL 180 MG TAB PO SCH (08:37)
[2020-03-22] MEDS: FUROSEMIDE 40 MG in SYRINGE 0 ML IV SCH (08:38)
[2020-03-22] MEDS: FLUTICASONE PROPIONATE NA SPR 16 GM BTL SCH (08:40)
[2020-03-22] MEDS: FLUTICASONE/VILANTEROL 200/25MCG 14 PUFFS/INHALER INH SCH (08:40)
[2020-03-22] MEDS: UMECLIDINIUM BROMIDE 62.5MCG/BLISTER 7 PUFFS/INHALER INH SCH (08:40)
[2020-03-22] MEDS: DICLOFENAC SOD 1% GEL 100 GM TUBE EXT SCH ×2 (08:41→13:18)
[2020-03-22] MEDS: LIDOCAINE 5% 1 PATCH TD SCH (08:52)
[2020-03-22] MEDS: HYDROCODONE/ACETAMINOPHEN 10/325 TAB PO PRN (08:57)
[2020-03-22] MEDS ORDERED: predniSONE 20 MG TAB PO SCH (09:00)
[2020-03-22] MEDS: PANTOprazole 40 MG TAB PO SCH (09:58)
[2020-03-22] MEDS: SPIRONOLACTONE 25 MG TAB PO SCH (09:58)
[2020-03-22] MEDS: INSULIN ASPART 100 UNITS/ML 3 ML PEN SC SCH ×2 (10:01→12:29)
--- NOTE | 2020-03-22 10:25 | Gastroenterology Progress Note ---
Date of Service March 22, 2020 Assessment & Plan (1) Choledocholithiasis: Pt is a 49 y/o female currently admitted for asthma exacerbation, was c/o LUQ abd pain with eating. Hx of s/p cholecystectomy and multiple ERCP for choledocholithiasis removal last done in 2017. LFTs up, lipase normal, and MRCP obtained 03/19 showed filling defect in CBD consistent w choledocholithiasis, hepatomegaly, hepatic steatosis. She underwent ERCP on 03/21 w choledocholithiasis removal. She is feeling well now, denies abd pain, n/v, LFTs had normalized. - Advance diet as tolerated - GI to sign off; pls recall prn - If choledocholithiasis recurrent will consider trying her on Ursodiol Admission and Anticipated Discharge Date Admission Date: March 20, 2020 Supervising Physician Co-Signing Physician Notes Attending attestation I have seen, examined this patient, and agree with the findings and above by our mid-level provider FE Camejo, with the following additions - doing well - ok for dc Subjective Pt feels well, denies abd pain, n/v, passed bowel movement this AM Review of Systems Review of Systems: All systems reviewed & are unremarkable except as noted in HPI & below Physical Exam Constitutional: WD/WN, vitals as above + morbidly obese, well groomed, cooperative and comfortable Eyes: PERRL, conjunctivae normal, anicteric sclerae ENMT: external ear and nose normal, oropharynx normal Respiratory: normal respiratory effort, lungs clear to auscultation Cardiovascular: RRR, no murmur, no edema Gastrointestinal (Abdomen): Inspection/Auscultation: + hypoactive bowel sounds Percussion/Palpation: abdomen soft; abdomen nontender Skin: no rashes, warm and dry no jaundice Psychiatric: A+Ox3, euthymic affect Lymphatic: no lymphedema Results & Data ([facility]) Vital Signs (Past 12 Hours) Vital Signs Temp Pulse Pulse Pulse Resp BP Pulse Ox 03/22/20 06:57 54 L 22 98 03/22/20 04:00 36.8 C 59 L 20 143/80 H 97 03/22/20 03:20 54 L 18 98 03/22/20 01:03 64 24 96 03/22/20 00:21 71 03/21/20 23:20 61 24 98 03/21/20 22:59 36.6 C 62 129/77 95
--- NOTE | 2020-03-22 11:37 | Discharge Summary ---
Date of Service March 22, 2020 Admission HPI Per Admitting Provider 49yo female with h/o severe persistent asthma presents with worsening asthma symptoms. This am she walked outside from her home to check her bird feeder and immediately began to have wheezing, chest tightness, and shortness of breath. Used combivent 4 puffs and 2 nebs of atrovent without relief of symptoms. Raymond very anxious. Because of not feeling well she came to the ER via private car. She has had chest tightness since last and received IV solumedrol on in the pulmonary office. She is on chronic prednisone, minimum 20mg/day, since October of this year. This was not increased after the office visit. Currently on augmentin BID for recent cellulitis, left leg. 2-3 "attacks" of asthma weekly at home. Uses atrovent nebs x 2 along with combivent for these attacks which usually helps. Has had 5 injections of solumedrol since December 2019. Currently sees Mickey ALMEIDA locally and Dr Remigio Mruphy in [facility] On March 08 started on dupilumab injection. Denies fevers. Wednesday of last week had chills but none since. This was associated with abdominal pain. On Wednesday of this last week had chills and abdominal pain as well. Appetite has been normal. No loss of taste or smell. No sick contacts. No runny nose, congestion or sore throat. Principal Diagnosis Acute asthma exacerbation, volume overload secondary to prednisone use and excessive po hydration, choledocholithiasis Discharge Exam Constitutional WD/WN, vitals as above + morbidly obese (Cushingoid appearance) Eyes + anicteric sclerae Neck trachea midline, no thyromegaly Respiratory normal respiratory effort Auscultation: + diminished lung sounds (throughout but improved air movement today); no crackles, no rhonchi and no wheezes Cardiovascular Rate/Rhythm: regular rate and regular rhythm Heart Sounds: no murmur Extremities: + edema (now only trace pitting edema of the lower extremities bilaterally) Chest (Breasts) Chest: normal inspection of chest Gastrointestinal (Abdomen) normal bowel sounds, soft, nontender, no hepatosplenomegaly Musculoskeletal Extremities: no cyanosis and no clubbing Skin + erythema (Flushing of the face) Neurologic moves all extremities and awake; no focal motor deficits Psychiatric A+Ox3, euthymic affect Lymphatic no lymphedema Discharge Data Allergies Allergy/AdvReac Type Severity Reaction Status Date / Time chlorhexidine Allergy Intermediate ITCHING Verified 03/18/20 13:44 budesonide Allergy Unknown Verified 03/18/20 13:44 azithromycin Allergy Verified 03/18/20 13:44 adhesive AdvReac Intermediate TAPE- Verified 03/18/20 13:44 SEVERE ITCHING clarithromycin AdvReac Intermediate NAUSEA Verified 03/18/20 13:44 clindamycin AdvReac Mild NAUSEA Verified 03/18/20 13:44 tramadol AdvReac Mild dizziness,S Verified 03/18/20 13:44 YNCOPE Consultations 03/18/20 14:09 ED Decision to Admit Stat 03/18/20 21:56 Burn CD for patient Routine 03/19/20 10:23 Consult Pulmonology Routine 03/19/20 19:35 Consult Gastroenterology Routine Procedures Performed Operation Date: 03/21/20 13:30 Actual Procedures p Endoscopic Retrograde Cholangiopancreatogram(Not Applicable) - Emilie Porter Ordered Studies 03/18/20 15:55 CT chest wo con Stat 03/19/20 11:42 MR MRCP Urgent 03/21/20 13:30 FL ERCP biliary ductal Routine CXR Hospital Course (1) Dyspnea: Admitted for worsening dyspnea thought to be related to acute asthma exacerbation. I suspect her ongoing dyspnea is not necessarily all from asthma. But also with significant 50 pound weight gain in a short amount of time secondary to long- term prednisone use. proBNP is negative, echocardiogram checked and with preserved EF With anasarca on examination Now significantly improved with IV lasix and prednisone burst I/O net neg 8.8L and weight down 2.2 kg which I suspect is erroneous Edema is much improved on exam Lungs clearer and moving air better -Continue treatment for asthma as below -continue Diuresis with Lasix 80 mg po daily -continue to Fluid restrict to 2000 mL's per day upon discharge. She reports she was drinking AT LEAST 2 gallons of flavored water daily She does not have a scale large enough at home but will keep an eye on her edema and abd girth to determine volume status -Strongly encouraged weight loss through calorie restriction as she is unable to exercise (2) Severe persistent asthma, poorly-controlled: She is on maximum therapy for her asthma including long-term steroids since 10/2019 and recently instituted dupilumab. She follows with [facility] pulmonary, Mickey Mejia, as well as former Dr Remigio Murphy who previously worked with [facility]. Dr Murphy now works in [place], [place]. Despite recent steroid burst and antibiotics she was no better prior to admission. CT chest without contrast showed ground glass opacities likely atelectasis, no pneumonia COVID-19 is negative Seen by pulmonology here who recommends continued prednisone but taper down to 40 mg daily x 2 more days then back to lowest possible dose over time -he thinks findings on imaging are related to atelectasis, recommends losing weight, recommends outpatient formal sleep study -continue with inhaled bronchodilators -home on high dose LABA/ICS and SPiriva, dc mometasone Needs nebulizer for home se given severe, persistent asthma-Rx given Needs bariatric wheeled walker with seat and hand brakes as she can only walk short distances before requiring rest to catch her breath and for severe lower back pain. Rx given (3) Choledocholithiasis: With a history of ascending cholangitis in 2018 with CBD stones requiring stent placement Here with intermittent abdominal pain in the epigastric region for the last week ALT and alkaline phosphatase are elevated here. Total bilirubin is normal. MRCP checked and confirms at least 3 intraluminal filling defects in the CBD with mild intrahepatic ductal dilatation She is afebrile and is without leukocytosis-no indication for emergent procedure -COnsulted GI - had ERCP here on 03/21 with successful removal of multiple stones and sludge from CBD, no stent placed, no sphincterotomy -Is on Augmentin for previous leg cellulitis-continued while inpatient but can now be stopped -ok as per GI to restart coumadin today (4) Supratherapeutic INR: likely due to antibiotic usage. Was above 4 on admission and is now down to 1.0 -restart coumadin. INR on Wednesday at home (5) Pre-diabetes: Hemoglobin A1c only 5.1% which is in the normal range placed on DM diet. Giving higher dose steroids however glucose is not significantly elevated no meds needed at home (6) Obstructive sleep apnea of adult: Does not have CPAP at home currently Tolerated BiPAP at 12/6 here and felt she slept the best she has in a long time could be contributing to refractory pulmonary symptoms. -Needs outpatient sleep study given significant weight gain recently (7) GERD without esophagitis: Chronic, uncontrolled GERD could contribute to asthma. -Continue PPI. (8) Allergic rhinitis: Cont all usual home meds (9) Pulmonary embolism: history of such, 2012. INR >3 on admission and now going for procedure --held coumadin and gave one dose Vit K restart coumadin today 15mg daily x 2 days then back to home dosing check INR Wednesday (10) Abnormal LFTs: Likely secondary to choledocholithiasis as above patient has had cholangitis in the past requiring CBD stent. Also with fatty liver now s/p ERCP FOllow as outpt (11) Morbid obesity with BMI of 50.0-59.9, adult: BMI 57 Encouraged significant weight loss Needs to get off of chronic prednisone (12) Weight gain: massive, 50+ pounds since early 2019, likely due to chronic steroids. TSH is normal Encouraged weight loss as above (13) Chronic back pain: consider dedicated imaging if worsens. likely to have severe DJD due to morbid obesity, could have compression fractures from osteoporosis. cont hydrocodone prn. appears to get narcotics about every other month from PCP's office per PDMP. (14) Anxiety: Continue Xanax as per home dosing (15) Vitamin D deficiency: Continue home vitamin D (16) DVT prophylaxis: Coumadin Disposition-dc to home Total Time Total Time Spent Total Time Spent (In Minutes): >30 min Total Time Includes: Examination of the Patient, Discharge Planning and Medication Reconciliation Discharge Plan Discharge Items Patient Disposition: Home - Home Health Services Reason For Visit: ASTHMA EXACERBATION Discharge Diagnosis: Asthma exacerbation, Volume overload, Choledocholithiasis Condition on Discharge: Good Activity: As commented below Bathing: No limitations Exercise/Sports: Gradually increase as tolerated Non-emergency contact: Primary Care Provider, Space Officer and Tallow Maker Call non-emergency contact if: you have any medication questions, your symptoms worsen, your pain is not controlled, your pain is worsening, your pain is unusual for you, your pain is concerning for you and you have a fever Follow-up/Referrals: Raj Mejia PA-C [Family Provider] - (Please follow up within 1-2 weeks.) Ramon العراقي MD [Primary Care Provider] - (Please follow up within 1-2 weeks.) Emilie Porter [Physician] - (Follow up NEEDED for abdominal pains) Diet: Carb Consistent or DM2 and Low Sodium (2gm) Fluids: 2000ml (8 cups) Addtl Attending Provider Instructions: Your lasix dose was increased to 80mg once daily in the morning. Please restrict your fluid intake as discussed and keep an eye on your weight. You should take a potassium pill along with the lasix and have Dr. العراقي check your basic metabolic panel in 1 week. Taper your prednisone down with 40mg daily x 2 more days then back to 20mg daily after that. Ultimate goal will be to get down to at least 10mg daily or lower in the future. Follow up with Mickey Mejia. You also need a formal sleep study to get qualified for a CPAP/BiPAP for your sleep apnea. Your common bile duct stones were removed. If you have recurrence of abdominal pain, please contact the GI specialist to arrange outpatient follow up. Please restart your coumadin today at 15mg daily x 2 days, then return to your usual dosing regimen. Check your PT/INR on Wednesday. Pending Studies at Discharge: No Stand-Alone Forms: My [facility] Medications and DC Order Prescriptions: New diclofenac sodium [Voltaren] 1 % Gel 4 g EXT QID Qty: 100 RF: 0 prednisone 20 mg Tablet 40 mg PO DAILY Qty: 30 RF: 0 furosemide [Lasix] 40 mg tablet 80 mg PO DAILY Qty: 60 RF: 0 potassium chloride 20 mEq tablet extended release 20 meq PO DAILY Qty: 30 RF: 0 Continued (DME) BD Integra Syringe 3 mL 25 gauge x 1" syringe See Rx Instructions .ROUTE .MEDSUPPLY Qty: 12 RF: 3 omeprazole 20 mg tablet,delayed release (DR/EC) 20 mg PO QAM Qty: 30 RF: 5 alprazolam [Xanax] 2 mg tablet 2 mg PO HS Qty: 90 RF: 0 hydrocodone-acetaminophen [[place]] 10-325 mg tablet 1 tab PO Q6H PRN (Reason: Pain) Qty: 20 RF: 0 alprazolam 1 mg tablet 1 mg PO TID PRN (Reason: anxiety) Qty: 90 RF: 0 spironolactone [Aldactone] 50 mg tablet 50 mg PO DAILY Qty: 30 RF: 2 ipratropium-albuterol 0.5 mg-3 mg(2.5 mg base)/3 mL solution for nebulization 3 ml INHALATION Q4H Qty: 540 RF: 3 Dupixent 300 mg/2 mL syringe 300 mg SQ UD RF: 0 (DME) misc Misc See Rx Instructions .ROUTE .MEDSUPPLY Qty: 1 RF: 0 baclofen 10 mg tablet 20 mg PO HS RF: 0 warfarin 10 mg tablet 15 mg PO TUTH RF: 0 warfarin 10 mg tablet 10 mg PO SUMOWEFRSA RF: 0 budesonide-formoterol 160-4.5 mcg/actuation Hfa Aerosol Inhaler 2 puff INHALATION Q12H RF: 0 cyanocobalamin (vitamin B-12) 1,000 mcg/mL solution 1,000 mcg IM TH RF: 0 montelukast [Singulair] 10 mg tablet 10 mg PO HS RF: 0 ergocalciferol (vitamin D2) [Vitamin D2] 1,250 mcg (50,000 unit) capsule 50,000 unit PO WE RF: 0 zolpidem 6.25 mg tablet,ext release multiphase 6.25 mg PO HS RF: 0 cetirizine [Zyrtec] 10 mg Tablet 10 mg PO HS RF: 0 fexofenadine [Susanne Allergy] 180 mg Tablet 180 mg PO BID RF: 0 fluticasone propionate [Flonase Allergy Relief] 50 mcg/actuation [place],Suspension 1 spray intranasal DAILY RF: 0 Combivent Respimat 20-100 mcg/actuation Mist 2 puff INHALATION Q2H PRN (Reason: SOB) RF: 0 Spiriva Respimat 1.25 mcg/actuation Mist 1 puff INHALATION BID RF: 0 naproxen sodium [Aleve] 220 mg capsule 440 mg PO BID RF: 0 Discontinued prednisone 20 mg tablet 20 mg PO DAILY Qty: 90 RF: 1 prednisone 10 mg tablet 10 mg PO DAILY Qty: 90 RF: 1 amoxicillin-pot clavulanate [Augmentin] 875-125 mg tablet 1 tab PO Q12H Qty: 20 RF: 0 guaifenesin 600 mg tablet extended release 12hr 600 - 1,200 mg PO DAILY PRN (Reason: Congestion) RF: 0 Asmanex HFA 100 mcg/actuation HFA aerosol inhaler 2 puffs INH BID Qty: 13 RF: 5 Hold Instructions: different med furosemide 20 mg tablet 40 mg PO QAM RF: 0 Discharge Orders: Discharge Order (Routine); Ordered 03/22/20 Ordered By: Jody Henao Admission Data Admit Date/Time: 03/20/20 08:13 Attending Provider: Jody Henao Admit Provider: David Malone Primary Care Provider: Ramon العراقي Other Providers: David Malone ; Kush Kerr ; Nav Piper Coding Level of Care Code D/C Day Management >30 mins Diagnoses Dyspnea R06.00 Severe persistent asthma, poorly-controlled J45.51 Asthma complication type: with acute exacerbation Choledocholithiasis K80.50 Supratherapeutic INR R79.1 Pre-diabetes R73.03 Obstructive sleep apnea of adult G47.33 GERD without esophagitis K21.9 Allergic rhinitis J30.89 Allergic rhinitis seasonality: unspecified Allergic rhinitis trigger: other Pulmonary embolism I26.99 Acute cor pulmonale presence: unspecified Chronicity: unspecified Pulmonary embolism type: other Abnormal LFTs R94.5 Morbid obesity with BMI of 50.0-59.9, adult E66.01; Z68.43 Weight gain R63.5 Chronic back pain M54.9; G89.29 Back pain laterality: left Back pain location: back pain in unspecified location Anxiety F41.9 Vitamin D deficiency E55.9 DVT prophylaxis Z29.9
== END 2020-03-22 15:16 | disposition home or self-care (01) | DRG 202 ==
LOC: 2W 11:24 → ED 11:24 → SUATTDRO 16:02 → 2W 16:46

== ENCOUNTER 2020-04-08 11:11 | Inpatient (IN) ==
[2020-04-08] MEDS ORDERED: HYDROmorphone INJ 0.5 MG/0.5 ML SYR IV STA ×2 (11:33→12:22)
[2020-04-08] MEDS ORDERED: ONDANSETRON INJ 2 MG/ML 2 ML VIAL IV STA (11:33)
[2020-04-08] MEDS ORDERED: SODIUM CHLORIDE 0.9% 1000ML 1,000 ML IV ONE (11:33)
[2020-04-08 11:43] LABS: Basophils # (auto) 0.02 K/uL (0-0.2); Basophils % (auto) 0.2 %; Eosinophils % (auto) 1.5 %; Hematocrit (blood only) 38.4 % (37-47); Hemoglobin 12.1 g/dL (12.0-16.0); Immature Granulocytes # (auto) 0.11 K/uL (0.00-0.02); Immature Granulocytes % (auto) 0.8 %; Lymphocytes # (auto) 2.52 K/uL (1.2-3.4); Lymphocytes % (auto) 19.4 %; Mean Corpuscular Hemoglobin 29.7 pg (25-34); Mean Corpuscular Hgb Conc 31.5 g/dL (32-36); Mean Corpuscular Volume 94.3 fL (80-100); Mean Platelet Volume 9.6 fL (7.4-10.4); Monocytes # (auto) 0.79 K/uL (0.11-0.59); Monocytes % (auto) 6.1 %; Neutrophils # (auto) 9.32 K/uL (1.4-6.5); Platelet Count 359 K/uL (130-400); RDW Coefficient of Variation 15.2 % (11.5-14.5); RDW Standard Deviation 52.5 fL (36.4-46.3); Red Blood Count 4.07 M/uL (4.2-5.4); White Blood Count 12.96 K/uL (4.8-10.8)
[2020-04-08 12:00] LABS: Alanine Aminotransferase 46 U/L (12-78); Albumin Level 3.2 gm/dl (3.4-5.0); Aspartate Aminotransferase 25 U/L (15-37); BUN Creatinine Ratio 22.3 (10-20); Blood Urea Nitrogen 17 mg/dl (7-18); Calcium 8.9 mg/dl (8.5-10.1); Carbon Dioxide 29 mmol/L (21-32); Chloride 103 mmol/L (98-107); Est GFR (African American) 106.6; Est GFR (Non-African American) 91.9; Glucose 107 mg/dl (70-99); Lipase 146 U/L (73-393); Potassium 3.7 mmol/L (3.5-5.1); Sodium 139 mmol/L (136-145)
[2020-04-08 12:03] LABS: Albumin Globulin Ratio 0.8 (0.9-2); Alkaline Phosphatase 85 U/L (45-117); Bilirubin,Total 0.4 mg/dl (0.2-1); Globulin 3.9 gm/dl (2.5-4.0); Total Protein 7.1 gm/dl (6.4-8.2)
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
[2020-04-08] MEDS ORDERED: MoRPHine SULFATE 10 MG/ML CARP/VIAL IV STA (12:59)
[2020-04-08] MEDS ORDERED: OPTIRAY 320 125ml IV ONE (13:48)
--- NOTE | 2020-04-08 14:03 | CT Scan Report ---
CT abd pelvis IV con only CLINICAL HISTORY: LLQ abd pain COMPARISON STUDY: 11/10/2017 TECHNIQUE: The patient was scanned in a dynamic helical fashion during intravenous administration of 20 20 cc of Optiray 320 A dose lowering technique was utilized adhering to the principles of ALARA. CT DOSE: 1955.36 mGy.cm FINDINGS: Lower chest: There are mild lower lobe atelectatic changes Liver: No focal hepatic masses are visualized. There is pneumobilia likely secondary to a prior sphin cterotomy. The portal vein appears patent. The hepatic veins appear patent. Gallbladder: Surgically absent Spleen: Normal in size and attenuation. Pancreas: Unremarkable. Adrenal glands: Unremarkable. Kidneys: There is symmetric renal cortical enhancement. The kidneys are normal in size without hydron ephrosis. Bowel: There are no transition zones indicate bowel obstruction. There is no evidence of acute append icitis. There is no evidence of acute diverticulitis. Peritoneum: There is no intraperitoneal free air or abdominal ascites. Vasculature: The abdominal aorta is normal in course and caliber. Adenopathy: None. Pelvic viscera: The bladder, and pelvic viscera are unremarkable. Skeletal structures: There is a left-sided rectus sheath hematoma measuring 17 x 12 x 8 cm. IMPRESSION: 1. 17 x 12 x 8 cm left rectus sheath hematoma 2. No evidence of bowel obstruction. No evidence of free air 3. No evidence of acute diverticulitis. ACT 112: Negative or not required by law. Electronically signed by: Yousif Marino M.D. 04/08/2020 2:02 PM
[2020-04-08] MEDS ORDERED: MoRPHine SULFATE 4 MG/ML 1 ML CARP\\VIAL IV STA ×2 (14:26→16:33)
[2020-04-08 14:31] LABS: Partial Thromboplastin Ratio 2.3; Prothrombin Time 53.9 Seconds (9.0-12.0)
[2020-04-08 14:34] LABS: INR 5.6 (0.9-1.1)
[2020-04-08 14:35] LABS: Partial Thromboplastin Time 63.5 Seconds (21.0-31.0)
[2020-04-08] MEDS ORDERED: MoRPHine SULFATE 4 MG/ML 1 ML CARP\\VIAL IV PRN (15:10)
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
[2020-04-08] MEDS ORDERED: PHYTONADIONE 5 MG in SODIUM CHLORIDE 0.9% 50 ML IV ONE (15:45)
[2020-04-08] MEDS ORDERED: FUROSEMIDE 80 MG TAB PO STA (15:51)
[2020-04-08] MEDS ORDERED: predniSONE 20 MG TAB PO STA (15:51)
[2020-04-08] MEDS ORDERED: ALBUT/IPRATROP 3MG/0.5MG NEB 3 ML VIAL NEB STA (15:51)
[2020-04-08] MEDS ORDERED: FEXOFENADINE HCL 180 MG TAB PO STA (15:51)
[2020-04-08] MEDS ORDERED: SPIRONOLACTONE 25 MG TAB PO STA (15:51)
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
[2020-04-08] MEDS ORDERED: ALUMINUM/MAGNESIUM SUSP 30 ML UDC PO PRN (18:16)
[2020-04-08] MEDS ORDERED: IPRATROPIUM BROMIDE/ALBUTEROL respimat INH INH PRN (18:16)
[2020-04-08] MEDS ORDERED: MoRPHine SULFATE 2 MG/ML CARP ONE (18:31)
[2020-04-08] MEDS: ALPRAZolam 0.5 MG TABLET PO SCH (19:12)
[2020-04-08] MEDS: HYDROCODONE/ACETAMINOPHEN 10/325 TAB PO PRN (19:56)
[2020-04-08] MEDS: FEXOFENADINE HCL 180 MG TAB PO SCH (20:38)
[2020-04-08] MEDS: BACLOFEN 10 MG TAB PO SCH (20:38)
[2020-04-08] MEDS: MONTELUKAST SODIUM 10 MG TABLET PO SCH (20:39)
[2020-04-08] MEDS: CETIRIZINE HCL 10 MG TABLET PO SCH (20:39)
[2020-04-08] MEDS: DICLOFENAC SOD 1% GEL 100 GM TUBE EXT SCH (20:40)
[2020-04-08] MEDS: MoRPHine SULFATE 2 MG/ML CARP IV PRN ×2 (20:40→23:50)
[2020-04-08] MEDS: IPRATROPIUM BROMIDE HFA INHALER INH PRN ×2 (20:49→23:17)
[2020-04-08] MEDS: ALBUTEROL HFA 8 GM INHALER INH PRN ×2 (20:50→23:15)
[2020-04-08] MEDS: ZOLPIDEM TARTRATE 10 MG TAB PO PRN (22:39)
[2020-04-09] MEDS: ONDANSETRON INJ 2 MG/ML 2 ML VIAL IV PRN ×3 (01:17→20:48)
[2020-04-09] MEDS: MoRPHine SULFATE 2 MG/ML CARP IV PRN ×6 (03:49→20:47)
[2020-04-09 07:15] LABS: Hematocrit (blood only) 32.4 % (37-47); Hemoglobin 10.2 g/dL (12.0-16.0); Mean Corpuscular Hemoglobin 29.8 pg (25-34); Mean Corpuscular Hgb Conc 31.5 g/dL (32-36); Mean Corpuscular Volume 94.7 fL (80-100); Mean Platelet Volume 9.9 fL (7.4-10.4); Nucleated RBC # (auto) 0.05 K/uL (0-0); Nucleated RBC % (auto) 0.3 %; Platelet Count 383 K/uL (130-400); RDW Coefficient of Variation 15.1 % (11.5-14.5); RDW Standard Deviation 51.7 fL (36.4-46.3); Red Blood Count 3.42 M/uL (4.2-5.4); White Blood Count 18.39 K/uL (4.8-10.8)
[2020-04-09 07:27] LABS: INR 1.7 (0.9-1.1); Partial Thromboplastin Ratio 1.1; Partial Thromboplastin Time 30.5 Seconds (21.0-31.0); Prothrombin Time 17.6 Seconds (9.0-12.0)
[2020-04-09 07:48] LABS: Calcium 8.3 mg/dl (8.5-10.1); Creatinine Clr Calc Pharmacy 130.9 ml/min; Est GFR (African American) 84.8; Est GFR (Non-African American) 73.2; Potassium 4.2 mmol/L (3.5-5.1)
[2020-04-09] MEDS: SPIRONOLACTONE 25 MG TAB PO SCH (07:53)
[2020-04-09] MEDS: PANTOprazole 40 MG TAB PO SCH (07:54)
[2020-04-09] MEDS: POTASSIUM CHLORIDE 20 MEQ TABCR PO SCH (07:54)
[2020-04-09] MEDS: UMECLIDINIUM BROMIDE 62.5MCG/BLISTER 7 PUFFS/INHALER INH SCH (07:55)
[2020-04-09] MEDS: predniSONE 20 MG TAB PO SCH (07:55)
[2020-04-09] MEDS: FEXOFENADINE HCL 180 MG TAB PO SCH ×2 (07:55→20:49)
[2020-04-09] MEDS: FLUTICASONE PROPIONATE NA SPR 16 GM BTL NAE SCH (07:55)
[2020-04-09] MEDS: DICLOFENAC SOD 1% GEL 100 GM TUBE EXT SCH ×4 (07:56→20:43)
[2020-04-09] MEDS: HYDROCODONE/ACETAMINOPHEN 10/325 TAB PO PRN ×3 (08:51→20:47)
[2020-04-09] MEDS: ALPRAZolam 0.5 MG TABLET PO PRN ×2 (10:49→17:17)
[2020-04-09] MEDS: FLUTICASONE/VILANTEROL 100/25MCG 14 PUFFS/INHALER INH SCH (10:51)
[2020-04-09] MEDS: ALBUTEROL HFA 8 GM INHALER INH PRN (10:56)
--- NOTE | 2020-04-09 13:27 | Surgery Progress Note ---
Date of Service April 09, 2020 Assessment & Plan (1) Rectus sheath hematoma: H&H 10.2/32.4 (12.1/38.4 yesterday) hemodynamically stable INR 1.7 moderate pain, better controlled today Plan: No surgical intervention recommended Continue pain management as needed avoid blood thinners/NSAIDs consider abdominal binder if able to tolerate Dr. Davila has seen and examined pt, agrees with above. Admission and Anticipated Discharge Date Admission Date: April 08, 2020 Supervising Physician Co-Signing Physician Notes I interviewed and examined this patient I agree with the above note. She developed a rectus sheath hematoma. There is no indication for surgical intervention. Subjective having a lot of pain, better controlled today but rough last night more pain left side of abdomen under ribs to lower abdomen tolerating diet Physical Exam Constitutional: + morbidly obese Respiratory: normal respiratory effort; no respiratory distress Gastrointestinal (Abdomen): Percussion/Palpation: + abdomen tender and abdomen soft; no guarding and abdomen not rigid ecchymosis of the RUQ Skin: no rashes, warm and dry Psychiatric: Orientation: alert and oriented x 3 Results & Data ([facility]) Vital Signs (Past 12 Hours) Vital Signs Temp Pulse Pulse Resp BP Pulse Ox 04/09/20 07:38 36.7 C 96 H 18 149/89 H 97 04/09/20 04:06 107 H 19 96 Laboratory Results 04/09/20 04/09/20 04/09/20 Range/Units 06:46 06:46 06:46 WBC 18.39 H (4.8-10.8) K/uL RBC 3.42 L (4.2-5.4) M/uL Hgb 10.2 L (12.0-16.0) g/dL Hct 32.4 L (37-47) % MCV 94.7 (80-100) fL MCH 29.8 (25-34) pg MCHC 31.5 L (32-36) g/dL RDW Std Deviation 51.7 H (36.4-46.3) fL RDW Coeff of Felicia 15.1 H (11.5-14.5) % Plt Count 383 (130-400) K/uL MPV 9.9 (7.4-10.4) fL Absolute Nucleated RBC 0.05 H (0-0) K/uL Nucleated RBC % (auto) 0.3 % PT 17.6 H (9.0-12.0) Seconds INR 1.7 H (0.9-1.1) APTT 30.5 (21.0-31.0) Seconds PTT Ratio 1.1 Sodium 137 (136-145) mmol/L Potassium 4.2 (3.5-5.1) mmol/L Chloride 101 (98-107) mmol/L Carbon Dioxide 25 (21-32) mmol/L Anion Gap 11.0 (3-11) BUN 17 (7-18) mg/dl Creatinine 0.93 (0.6-1.2) mg/dl Est Cr Clr Drug Dosing 130.9 ml/min Est GFR ( Amer) 84.8 Est GFR (Non-Af Amer) 73.2 BUN/Creatinine Ratio 18.0 (10-20) Glucose 123 H (70-99) mg/dl Calcium 8.3 L (8.5-10.1) mg/dl Total Creatine Kinase (26-192) U/L 04/08/20 04/08/20 Range/Units 11:32 11:32 WBC (4.8-10.8) K/uL RBC (4.2-5.4) M/uL Hgb (12.0-16.0) g/dL Hct (37-47) % MCV (80-100) fL MCH (25-34) pg MCHC (32-36) g/dL RDW Std Deviation (36.4-46.3) fL RDW Coeff of Felicia (11.5-14.5) % Plt Count (130-400) K/uL MPV (7.4-10.4) fL Absolute Nucleated RBC (0-0) K/uL Nucleated RBC % (auto) % PT 53.9 H (9.0-12.0) Seconds INR 5.6 H* (0.9-1.1) APTT 63.5 H* (21.0-31.0) Seconds PTT Ratio 2.3 Sodium (136-145) mmol/L Potassium (3.5-5.1) mmol/L Chloride (98-107) mmol/L Carbon Dioxide (21-32) mmol/L Anion Gap (3-11) BUN (7-18) mg/dl Creatinine (0.6-1.2) mg/dl Est Cr Clr Drug Dosing ml/min Est GFR ( Amer) Est GFR (Non-Af Amer) BUN/Creatinine Ratio (10-20) Glucose (70-99) mg/dl Calcium (8.5-10.1) mg/dl Total Creatine Kinase 102 (26-192) U/L
[2020-04-09] MEDS: BACLOFEN 10 MG TAB PO SCH (20:48)
[2020-04-09] MEDS: ALPRAZolam 0.5 MG TABLET PO SCH (20:48)
[2020-04-09] MEDS: MONTELUKAST SODIUM 10 MG TABLET PO SCH (20:49)
[2020-04-09] MEDS: CETIRIZINE HCL 10 MG TABLET PO SCH (20:49)
--- NOTE | 2020-04-09 21:57 | Hospitalist Progress Note ---
Date of Service April 09, 2020 Assessment & Plan (1) Rectus sheath hematoma: Suspect secondary to mild trauma with brushing past her walker 2 days previously with supratherapeutic INR. INR is now subtherapeutic. will continue to monitor h and h. Hold warfarin and NSAIDs. Appreciate input from general surgery. (2) Supratherapeutic INR: Vit K as above. I am unclear on her indication for chronic anticoagulation as she reports only one episode of PEs in the past. (3) Severe persistent asthma, poorly-controlled: History of bronchial thermoplasty in 2015. Recently started dupilumab injections. No current exacerbation. Continue her usual regimen with prednisone 20 mg p.o. daily. DuoNebs 4 times daily as needed (she usually takes this regularly). Symbicort BID, Spiriva BID. (4) Vitamin B12 deficiency: Hold IM injections due to current hematoma (5) Vitamin D deficiency: Continue Vitamin D2 50,000 units PO weekly (6) Obstructive sleep apnea of adult: CPAP HS (7) GERD without esophagitis: Switch omeprazole to pantoprazole as per hospital formulary (8) Chronic pain: Continue her usual [place] with morphine for breakthrough pain. Hold NSAIDs in setting of rectal sheath hematoma as above. Baclofen HS. (9) Anxiety: Continue her usual Xanax regimen. (10) Insomnia: Continue her usual zolpidem HS. (11) DVT prophylaxis: Chemical anticoagulation contraindicated. Patient refuses SCDs due to breakdown of skin on chronic steroids. Admission and Anticipated Discharge Date Admission Date: April 08, 2020 Subjective Patient reports more pain in her abdomen than yesterday. She also reports noticing her abdomen becoming more hard than before. Review of Systems Review of Systems: All systems reviewed & are unremarkable except as noted in HPI & below Physical Exam Physical Exam: Constitutional: well developed, + acute distress (abdominal pain) and + morbidly obese; + not well nourished Eyes: + anicteric sclerae; normal pupil size ENMT: external ear and nose normal, oropharynx normal Neck: + short neck and + thick neck Respiratory: normal respiratory effort, lungs clear to auscultation no wheezes Cardiovascular: Rate/Rhythm: regular rate and regular rhythm Heart Sounds: no murmur Extremities: normal capillary refill and + pedal edema (trace to mid shins); no calf tenderness Gastrointestinal (Abdomen): Inspection/Auscultation: + abdomen distended, normal bowel sounds and + significant pannus; + abdomen abnormal to inspection (see skin exam) Percussion/Palpation: + abdomen tender (LLQ), and abdomen soft; abdomen not rigid Musculoskeletal: no cyanosis or clubbing, extremities motor strength 5/5 Skin: Ecchymosis over RUQ abdomen from prior injections. No areas of cellulitis. Neurologic: moves all extremities and awake; not confused Psychiatric: Orientation: alert and oriented x 3 Affect: + anxious affect Results & Data Results & Data ([facility] [place]) Vital Signs (Past 12 Hours) Vital Signs Temp Pulse Resp BP Pulse Ox 04/09/20 15:43 36.5 C 100 H 18 167/75 H 99 PG Care Time/CCT Total # of Minutes Spent Total Time Spent with Patient: Total time spent is greater than 50% in coordination of care (as documented) at patient's floor/unit and/or counseling patient: Coding Level of Care Code 44386 Subseq Obs Care Lvl 3 Diagnoses Rectus sheath hematoma S30.1XXA Supratherapeutic INR R79.1 Severe persistent asthma, poorly-controlled J45.51 Asthma complication type: with acute exacerbation Vitamin B12 deficiency E53.8 Vitamin D deficiency E55.9 Obstructive sleep apnea of adult G47.33 GERD without esophagitis K21.9 Chronic pain G89.29 Anxiety F41.9 Insomnia G47.00 DVT prophylaxis Z29.9 Time Spent (min) 35 (1) Severe persistent asthma, poorly-controlled Asthma complication type: with acute exacerbation Qualified Code(s): J45.51 - Severe persistent asthma with (acute) exacerbation
[2020-04-10] MEDS: MoRPHine SULFATE 2 MG/ML CARP IV PRN ×9 (00:07→23:38)
[2020-04-10] MEDS: ZOLPIDEM TARTRATE 10 MG TAB PO PRN (00:07)
[2020-04-10] MEDS: ALBUTEROL HFA 8 GM INHALER INH PRN ×2 (04:30→15:36)
[2020-04-10] MEDS: IPRATROPIUM BROMIDE HFA INHALER INH PRN ×2 (04:32→15:35)
[2020-04-10] MEDS: ONDANSETRON INJ 2 MG/ML 2 ML VIAL IV PRN (08:02)
[2020-04-10] MEDS: PANTOprazole 40 MG TAB PO SCH (08:07)
[2020-04-10] MEDS: POTASSIUM CHLORIDE 20 MEQ TABCR PO SCH (08:07)
[2020-04-10] MEDS: FEXOFENADINE HCL 180 MG TAB PO SCH ×2 (08:07→22:01)
[2020-04-10] MEDS: SPIRONOLACTONE 25 MG TAB PO SCH (08:07)
[2020-04-10] MEDS: predniSONE 20 MG TAB PO SCH (08:07)
[2020-04-10] MEDS: FLUTICASONE/VILANTEROL 100/25MCG 14 PUFFS/INHALER INH SCH (08:08)
[2020-04-10] MEDS: UMECLIDINIUM BROMIDE 62.5MCG/BLISTER 7 PUFFS/INHALER INH SCH (08:08)
[2020-04-10] MEDS: ERGOCALCIFEROL 50,000 UNITS CAP PO SCH (08:08)
[2020-04-10] MEDS: FLUTICASONE PROPIONATE NA SPR 16 GM BTL NAE SCH (08:09)
[2020-04-10] MEDS: DICLOFENAC SOD 1% GEL 100 GM TUBE EXT SCH ×4 (08:09→22:02)
[2020-04-10] MEDS: HYDROCODONE/ACETAMINOPHEN 10/325 TAB PO PRN ×3 (09:21→21:59)
[2020-04-10] MEDS: ALPRAZolam 0.5 MG TABLET PO PRN (10:17)
--- NOTE | 2020-04-10 11:30 | Surgery Progress Note ---
Date of Service April 10, 2020 Assessment & Plan (1) Rectus sheath hematoma: Rectus sheath hematoma. Pain persists. She has developed some ecchymosis of the lower abdomen which is expected We will continue with conservative measures and control of her INR No indication for surgical intervention at this time Admission and Anticipated Discharge Date Admission Date: April 08, 2020 Subjective Pain slightly worse today but she has been taking less pain medicine Passing her bowels No nausea or vomiting Tolerating regular diet Physical Exam Gastrointestinal (Abdomen): Inspection/Auscultation: abdomen not distended Percussion/Palpation: + abdomen tender (Remains tender along the left rectus sheath area); abdomen not rigid Ecchymosis of the lower abdomen Results & Data ([facility]) Vital Signs (Past 12 Hours) Vital Signs Temp Pulse Pulse Resp BP Pulse Ox 04/10/20 06:54 36.9 C 120 H 24 133/79 99 04/10/20 04:32 95 H 18 96 04/10/20 03:05 109 H 16 97 04/09/20 23:30 37.0 C 119 H 22 139/77 100
[2020-04-10 12:32] LABS: Basophils # (auto) 0.03 K/uL (0-0.2); Basophils % (auto) 0.1 %; Eosinophils # (auto) 0.08 K/uL (0-0.5); Eosinophils % (auto) 0.4 %; Hematocrit (blood only) 23.8 % (37-47); Hemoglobin 7.7 g/dL (12.0-16.0); Immature Granulocytes % (auto) 2.4 %; Lymphocytes # (auto) 2.59 K/uL (1.2-3.4); Lymphocytes % (auto) 12.4 %; Mean Corpuscular Hemoglobin 30.1 pg (25-34); Mean Corpuscular Hgb Conc 32.4 g/dL (32-36); Mean Platelet Volume 9.4 fL (7.4-10.4); Monocytes # (auto) 1.38 K/uL (0.11-0.59); Monocytes % (auto) 6.6 %; Neutrophils # (auto) 16.37 K/uL (1.4-6.5); Neutrophils % (auto) 78.1 %; Nucleated RBC # (auto) 0.18 K/uL (0-0); Nucleated RBC % (auto) 0.9 %; Platelet Count 381 K/uL (130-400); RDW Coefficient of Variation 15.2 % (11.5-14.5); RDW Standard Deviation 51.4 fL (36.4-46.3); Red Blood Count 2.56 M/uL (4.2-5.4); White Blood Count 20.95 K/uL (4.8-10.8)
[2020-04-10 12:52] LABS: Polychromasia 1+
[2020-04-10 12:57] LABS: INR 1.2 (0.9-1.1); Prothrombin Time 12.5 Seconds (9.0-12.0)
[2020-04-10 13:06] LABS: Albumin Globulin Ratio 0.8 (0.9-2); Albumin Level 2.9 gm/dl (3.4-5.0); BUN Creatinine Ratio 8.9 (10-20); Bilirubin,Total 0.5 mg/dl (0.2-1); Calcium 8.9 mg/dl (8.5-10.1); Creatinine Clr Calc Pharmacy 141.6 ml/min; Est GFR (African American) 93.2; Est GFR (Non-African American) 80.4; Globulin 3.7 gm/dl (2.5-4.0); Potassium 4.4 mmol/L (3.5-5.1); Total Protein 6.6 gm/dl (6.4-8.2)
[2020-04-10] MEDS ORDERED: SODIUM CHLORIDE 0.9% 250 ML IV PRN ×2 (18:17→19:38)
[2020-04-10 19:05] LABS: Hematocrit (blood only) 21.3 % (37-47); Hemoglobin 6.9 g/dL (12.0-16.0)
[2020-04-10] MEDS: ALPRAZolam 0.5 MG TABLET PO SCH (21:59)
[2020-04-10] MEDS: BACLOFEN 10 MG TAB PO SCH (22:01)
[2020-04-10] MEDS: MONTELUKAST SODIUM 10 MG TABLET PO SCH (22:01)
[2020-04-10] MEDS: CETIRIZINE HCL 10 MG TABLET PO SCH (22:01)
--- NOTE | 2020-04-10 22:50 | Hospitalist Progress Note ---
Date of Service April 10, 2020 Assessment & Plan (1) Rectus sheath hematoma: Suspect secondary to mild trauma with brushing past her walker 2 days previously with supratherapeutic INR. INR is now subtherapeutic. will continue to monitor h and h. Repeat level below 7, will transfuse 2 PRBC. Hold warfarin and NSAIDs. Obtained consent. Appreciate input from general surgery. (2) Supratherapeutic INR: Vit K as above. I am unclear on her indication for chronic anticoagulation as she reports only one episode of PEs in the past. (3) Severe persistent asthma, poorly-controlled: History of bronchial thermoplasty in 2015. Recently started dupilumab injections. No current exacerbation. Continue her usual regimen with prednisone 20 mg p.o. daily. DuoNebs 4 times daily as needed (she usually takes this regularly). Symbicort BID, Spiriva BID. (4) Vitamin B12 deficiency: Hold IM injections due to current hematoma (5) Vitamin D deficiency: Continue Vitamin D2 50,000 units PO weekly (6) Obstructive sleep apnea of adult: CPAP HS (7) GERD without esophagitis: Switch omeprazole to pantoprazole as per hospital formulary (8) Chronic pain: Continue her usual [place] with morphine for breakthrough pain. Hold NSAIDs in setting of rectal sheath hematoma as above. Baclofen HS. (9) Anxiety: Continue her usual Xanax regimen. (10) Insomnia: Continue her usual zolpidem HS. (11) DVT prophylaxis: Chemical anticoagulation contraindicated. Patient refuses SCDs due to breakdown of skin on chronic steroids. Admission and Anticipated Discharge Date Admission Date: April 10, 2020 Subjective 49 yo female reports feeling more pain in her abdomen. She is agreeable to obtain a blood transfusion. Review of Systems Review of Systems: All systems reviewed & are unremarkable except as noted in HPI & below Physical Exam Physical Exam: Constitutional: well developed, + morbidly obese; + not well nourished Eyes: + anicteric sclerae; normal pupil size ENMT: external ear and nose normal, oropharynx normal Neck: + short neck and + thick neck Respiratory: normal respiratory effort, lungs clear to auscultation no wheezes Cardiovascular: Rate/Rhythm: regular rate and regular rhythm Heart Sounds: no murmur Extremities: normal capillary refill and + pedal edema (trace to mid shins); no calf tenderness Gastrointestinal (Abdomen): Inspection/Auscultation: + abdomen distended, normal bowel sounds and + significant pannus; + abdomen abnormal to inspection (see skin exam) Percussion/Palpation: + abdomen tender (LLQ), and abdomen soft; abdomen not rigid Musculoskeletal: no cyanosis or clubbing, extremities motor strength 5/5 Skin: Ecchymosis over RUQ abdomen from prior injections. No areas of cellulitis. Neurologic: moves all extremities and awake; not confused Psychiatric: Orientation: alert and oriented x 3 Affect: + anxious affect Results & Data Results & Data ([facility]) Vital Signs (Past 12 Hours) Vital Signs Temp Pulse Pulse Resp BP BP Pulse Ox 04/10/20 22:10 36.7 C 94 H 20 139/83 99 04/10/20 21:35 36.9 C 94 H 20 166/83 H 95 04/10/20 21:05 36.8 C 94 H 20 146/82 H 95 04/10/20 20:50 36.7 C 98 H 20 146/87 H 96 04/10/20 20:48 36.7 C 98 H 20 146/87 H 96 04/10/20 20:33 36.6 C 108 H 20 164/74 H 95 04/10/20 15:36 92 H 18 97 04/10/20 15:10 36.7 C 87 18 119/72 95 PG Care Time/CCT Total # of Minutes Spent Total Time Spent with Patient: Total time spent is greater than 50% in coordination of care (as documented) at patient's floor/unit and/or counseling patient: Coding Level of Care Code 13183 Subseq Hosp Care Lvl 3 Diagnoses Rectus sheath hematoma S30.1XXA Supratherapeutic INR R79.1 Severe persistent asthma, poorly-controlled J45.51 Asthma complication type: with acute exacerbation Vitamin B12 deficiency E53.8 Vitamin D deficiency E55.9 Obstructive sleep apnea of adult G47.33 GERD without esophagitis K21.9 Chronic pain G89.29 Anxiety F41.9 Insomnia G47.00 DVT prophylaxis Z29.9 Time Spent (min) 35 (1) Severe persistent asthma, poorly-controlled Asthma complication type: with acute exacerbation Qualified Code(s): J45.51 - Severe persistent asthma with (acute) exacerbation
[2020-04-11] MEDS: MoRPHine SULFATE 2 MG/ML CARP IV PRN ×9 (01:55→22:22)
[2020-04-11] MEDS: ALPRAZolam 0.5 MG TABLET PO PRN ×3 (01:56→18:04)
[2020-04-11] MEDS: ZOLPIDEM TARTRATE 10 MG TAB PO PRN ×2 (01:56→20:27)
[2020-04-11] MEDS: ALBUTEROL HFA 8 GM INHALER INH PRN ×2 (02:04→11:11)
[2020-04-11] MEDS: IPRATROPIUM BROMIDE HFA INHALER INH PRN ×2 (02:04→11:12)
[2020-04-11] MEDS: HYDROCODONE/ACETAMINOPHEN 10/325 TAB PO PRN ×3 (06:11→18:04)
[2020-04-11] MEDS: ONDANSETRON INJ 2 MG/ML 2 ML VIAL IV PRN ×2 (08:25→14:00)
[2020-04-11] MEDS: SPIRONOLACTONE 25 MG TAB PO SCH (08:27)
[2020-04-11] MEDS: FLUTICASONE PROPIONATE NA SPR 16 GM BTL NAE SCH (08:28)
[2020-04-11] MEDS: PANTOprazole 40 MG TAB PO SCH (08:28)
[2020-04-11] MEDS: UMECLIDINIUM BROMIDE 62.5MCG/BLISTER 7 PUFFS/INHALER INH SCH (08:28)
[2020-04-11] MEDS: predniSONE 20 MG TAB PO SCH (08:28)
[2020-04-11] MEDS: FEXOFENADINE HCL 180 MG TAB PO SCH ×2 (08:28→20:21)
[2020-04-11] MEDS: FLUTICASONE/VILANTEROL 100/25MCG 14 PUFFS/INHALER INH SCH (08:28)
[2020-04-11] MEDS: POTASSIUM CHLORIDE 20 MEQ TABCR PO SCH (08:28)
[2020-04-11] MEDS: DICLOFENAC SOD 1% GEL 100 GM TUBE EXT SCH ×4 (08:29→20:22)
[2020-04-11 10:24] LABS: Hematocrit (blood only) 24.9 % (37-47); Hemoglobin 8.2 g/dL (12.0-16.0); Mean Corpuscular Hemoglobin 30.4 pg (25-34); Mean Corpuscular Hgb Conc 32.9 g/dL (32-36); Mean Corpuscular Volume 92.2 fL (80-100); Mean Platelet Volume 9.2 fL (7.4-10.4); Nucleated RBC # (auto) 0.47 K/uL (0-0); Nucleated RBC % (auto) 3.8 %; Platelet Count 310 K/uL (130-400); RDW Coefficient of Variation 16.3 % (11.5-14.5); RDW Standard Deviation 54.4 fL (36.4-46.3); White Blood Count 12.32 K/uL (4.8-10.8)
[2020-04-11 10:44] LABS: BUN Creatinine Ratio 10.3 (10-20); Calcium 8.6 mg/dl (8.5-10.1); Creatinine Clr Calc Pharmacy 199.6 ml/min; Est GFR (African American) 125.1
--- NOTE | 2020-04-11 11:17 | Surgery Progress Note ---
Date of Service April 11, 2020 Assessment & Plan (1) Rectus sheath hematoma: Much less pain and tenderness today H&H noted and had blood transfusion and would continue to follow No reason for surgical intervention at this time. Admission and Anticipated Discharge Date Admission Date: April 10, 2020 Subjective Feels better today Much less pain No nausea or vomiting H&H had decreased to 6.9 and she received a 2 unit blood transfusion Physical Exam Gastrointestinal (Abdomen): Inspection/Auscultation: abdomen not distended Percussion/Palpation: + abdomen tender (Much less tender today) and abdomen soft (Much softer) Increased ecchymosis along the lower abdominal wall Results & Data ([facility]) Vital Signs (Past 12 Hours) Vital Signs Temp Pulse Pulse Resp BP BP Pulse Ox 04/11/20 07:27 36.9 C 87 18 136/81 97 04/11/20 03:02 36.5 C 90 20 141/89 H 98 04/11/20 02:05 90 18 97 04/11/20 00:16 36.5 C 90 20 141/89 H 98 04/11/20 00:01 36.8 C 92 H 20 150/86 H 98 04/10/20 23:43 37.1 C 99 H 22 162/80 H 99 04/10/20 23:42 37.1 C 99 H 22 162/80 H 99
[2020-04-11] MEDS: DOCUSATE SODIUM/SENNA 50/8.6MG TAB PO SCH (13:52)
[2020-04-11 15:03] LABS: Hematocrit (blood only) 24.3 % (37-47); Hemoglobin 7.8 g/dL (12.0-16.0)
[2020-04-11] MEDS ORDERED: SODIUM CHLORIDE 0.9% 250 ML IV PRN (18:39)
[2020-04-11 19:37] LABS: Hematocrit (blood only) 23.8 % (37-47); Hemoglobin 7.8 g/dL (12.0-16.0)
[2020-04-11] MEDS ORDERED: CYANOCOBALAMIN 1000 MCG/ML VIAL IM ONE (20:00)
[2020-04-11] MEDS: MONTELUKAST SODIUM 10 MG TABLET PO SCH (20:21)
[2020-04-11] MEDS: BACLOFEN 10 MG TAB PO SCH (20:21)
[2020-04-11] MEDS: ALPRAZolam 0.5 MG TABLET PO SCH (20:21)
[2020-04-11] MEDS: CETIRIZINE HCL 10 MG TABLET PO SCH (20:21)
--- NOTE | 2020-04-11 22:53 | Hospitalist Progress Note ---
Date of Service April 11, 2020 Assessment & Plan (1) Rectus sheath hematoma: Suspect secondary to mild trauma with brushing past her walker 2 days previously with supratherapeutic INR. INR is now subtherapeutic. will continue to monitor h and h. Patient required 2 PRBCs on 04/10 Hemoglobin has remained steady, will recheck hemoglobin later in the day and check in AM. Hold warfarin and NSAIDs. Obtained consent. Appreciate input from general surgery. (2) Supratherapeutic INR: Vit K as above. I am unclear on her indication for chronic anticoagulation as she reports only one episode of PEs in the past. (3) Severe persistent asthma, poorly-controlled: History of bronchial thermoplasty in 2015. Recently started dupilumab injections. No current exacerbation. Continue her usual regimen with prednisone 20 mg p.o. daily. DuoNebs 4 times daily as needed (she usually takes this regularly). Symbicort BID, Spiriva BID. (4) Vitamin B12 deficiency: Hold IM injections due to current hematoma (5) Vitamin D deficiency: Continue Vitamin D2 50,000 units PO weekly (6) Obstructive sleep apnea of adult: CPAP HS (7) GERD without esophagitis: Switch omeprazole to pantoprazole as per hospital formulary (8) Chronic pain: Continue her usual [place] with morphine for breakthrough pain. Hold NSAIDs in setting of rectal sheath hematoma as above. Baclofen HS. (9) Anxiety: Continue her usual Xanax regimen. (10) Insomnia: Continue her usual zolpidem HS. (11) DVT prophylaxis: Chemical anticoagulation contraindicated. Patient refuses SCDs due to breakdown of skin on chronic steroids. Admission and Anticipated Discharge Date Admission Date: April 10, 2020 Subjective 49 yo female reports feeling slightly better today. Her abd. is less tense today and it hurts less to move. She is complaiing of intermittent cramps in her bilateral arms. Review of Systems Review of Systems: All systems reviewed & are unremarkable except as noted in HPI & below Physical Exam Physical Exam: Constitutional: well developed, + morbidly obese; + not well nourished Eyes: + anicteric sclerae; normal pupil size ENMT: external ear and nose normal, oropharynx normal Neck: + short neck and + thick neck Respiratory: normal respiratory effort, lungs clear to auscultation no wheezes Cardiovascular: Rate/Rhythm: regular rate and regular rhythm Heart Sounds: no murmur Extremities: normal capillary refill and + pedal edema (trace to mid shins); no calf tenderness Gastrointestinal (Abdomen): Inspection/Auscultation: + abdomen distended, normal bowel sounds and + significant pannus; + abdomen abnormal to inspection (see skin exam) Percussion/Palpation: + decreased abdomen tender (hypogastric, perumbilical regions), and abdomen soft; abdomen not rigid Musculoskeletal: no cyanosis or clubbing, extremities motor strength 5/5 Skin: Ecchymosis over RUQ abdomen from prior injections. No areas of cellulitis. Neurologic: moves all extremities and awake; not confused Psychiatric: Orientation: alert and oriented x 3 Affect: + anxious affect Results & Data Results & Data ([facility]) Vital Signs (Past 12 Hours) Vital Signs Temp Pulse Pulse Resp BP Pulse Ox 04/11/20 22:22 70 18 99 04/11/20 14:58 36.6 C 95 H 20 133/77 93 04/11/20 11:12 94 H 18 94 PG Care Time/CCT Total # of Minutes Spent Total Time Spent with Patient: Total time spent is greater than 50% in coordination of care (as documented) at patient's floor/unit and/or counseling patient: Coding Level of Care Code 09674 Subseq Hosp Care Lvl 3 Diagnoses Rectus sheath hematoma S30.1XXA Supratherapeutic INR R79.1 Severe persistent asthma, poorly-controlled J45.51 Asthma complication type: with acute exacerbation Vitamin B12 deficiency E53.8 Vitamin D deficiency E55.9 Obstructive sleep apnea of adult G47.33 GERD without esophagitis K21.9 Chronic pain G89.29 Anxiety F41.9 Insomnia G47.00 DVT prophylaxis Z29.9 Time Spent (min) 35 (1) Severe persistent asthma, poorly-controlled Asthma complication type: with acute exacerbation Qualified Code(s): J45.51 - Severe persistent asthma with (acute) exacerbation
[2020-04-12] MEDS: HYDROCODONE/ACETAMINOPHEN 10/325 TAB PO PRN ×3 (04:51→19:40)
[2020-04-12] MEDS: MoRPHine SULFATE 2 MG/ML CARP IV PRN ×6 (04:51→21:24)
[2020-04-12] MEDS: ONDANSETRON INJ 2 MG/ML 2 ML VIAL IV PRN (07:13)
[2020-04-12] MEDS ORDERED: MoRPHine SULFATE 2 MG/ML CARP IV STA (08:00)
[2020-04-12] MEDS: ALPRAZolam 0.5 MG TABLET PO PRN ×2 (08:25→17:01)
[2020-04-12] MEDS: FLUTICASONE/VILANTEROL 100/25MCG 14 PUFFS/INHALER INH SCH (08:37)
[2020-04-12] MEDS: UMECLIDINIUM BROMIDE 62.5MCG/BLISTER 7 PUFFS/INHALER INH SCH (08:37)
[2020-04-12] MEDS: FLUTICASONE PROPIONATE NA SPR 16 GM BTL NAE SCH (08:39)
[2020-04-12] MEDS: SPIRONOLACTONE 25 MG TAB PO SCH (08:39)
[2020-04-12] MEDS: POTASSIUM CHLORIDE 20 MEQ TABCR PO SCH (08:39)
[2020-04-12] MEDS: FEXOFENADINE HCL 180 MG TAB PO SCH ×2 (08:39→21:16)
[2020-04-12] MEDS: PANTOprazole 40 MG TAB PO SCH (08:40)
[2020-04-12] MEDS: DICLOFENAC SOD 1% GEL 100 GM TUBE EXT SCH ×4 (08:40→21:16)
[2020-04-12] MEDS: DOCUSATE SODIUM/SENNA 50/8.6MG TAB PO SCH (08:40)
[2020-04-12] MEDS: predniSONE 20 MG TAB PO SCH (08:40)
[2020-04-12 08:52] LABS: Hematocrit (blood only) 25.5 % (37-47); Hemoglobin 8.1 g/dL (12.0-16.0); Mean Corpuscular Hemoglobin 29.3 pg (25-34); Mean Corpuscular Hgb Conc 31.8 g/dL (32-36); Mean Corpuscular Volume 92.4 fL (80-100); Nucleated RBC # (auto) 0.38 K/uL (0-0); Nucleated RBC % (auto) 3.2 %; Platelet Count 305 K/uL (130-400); RDW Coefficient of Variation 16.2 % (11.5-14.5); RDW Standard Deviation 54.5 fL (36.4-46.3); Red Blood Count 2.76 M/uL (4.2-5.4); White Blood Count 11.85 K/uL (4.8-10.8)
[2020-04-12 09:09] LABS: BUN Creatinine Ratio 11.3 (10-20); Calcium 8.8 mg/dl (8.5-10.1); Creatinine Clr Calc Pharmacy 196.4 ml/min; Est GFR (African American) 124.5; Est GFR (Non-African American) 107.4; Potassium 4.1 mmol/L (3.5-5.1)
--- NOTE | 2020-04-12 10:46 | Hospitalist Progress Note ---
Date of Service April 12, 2020 Assessment & Plan (1) Rectus sheath hematoma: Rectus sheath hematoma due to anticoagulant therapy. Acute blood loss anemia. Suspect secondary to mild trauma with brushing past her walker 2 days previously with supratherapeutic INR. - Patient required 2 PRBCs on 04/10. - Hold warfarin and NSAIDs. - Appreciate input from general surgery -> No surgical need at this time. - Hgb steady at 8.1 today. - Will work on pain control today. (2) Supratherapeutic INR: INR up to 5.6 on admission. - Given Vit K; INR now 1.0 on 04/11. (3) Severe persistent asthma, poorly-controlled: History of bronchial thermoplasty in 2015. Recently started dupilumab injections. - No current exacerbation. - Continue her usual regimen with prednisone 20 mg p.o. daily. DuoNebs 4 times daily as needed (she usually takes this regularly), Symbicort BID, & Spiriva BID. (4) Obstructive sleep apnea of adult: Compliant with CPAP HS in the hospital. (5) GERD without esophagitis: - Switch omeprazole to pantoprazole as per hospital formulary. (6) Chronic pain: - Continue her usual [place] with morphine for breakthrough pain. - Hold NSAIDs in setting of rectal sheath hematoma as above. - Baclofen HS. (7) Anxiety: - Continue her usual Xanax regimen. (8) Insomnia: - Continue her usual zolpidem HS. (9) DVT prophylaxis: Chemical anticoagulation contraindicated. - Patient refuses SCDs due to breakdown of skin on chronic steroids. - Patient is ambulating some in the room and reports doing leg exercises to prevent DVT. Admission and Anticipated Discharge Date Admission Date: April 10, 2020 Subjective Reports lots of pain this morning in the abdomen and around the sides. Reports no fevers/chills, chest pain, shortness of breath, abdominal pain, nausea, or vomiting. Physical Exam Constitutional: WD/WN, vitals as above + acute distress and + morbidly obese Eyes: EOM intact bilaterally; no conjunctival abnormality ENMT: external ear and nose normal, oropharynx normal Neck: trachea midline, no thyromegaly normal visual inspection Respiratory: normal respiratory effort, lungs clear to auscultation no respiratory distress Cardiovascular: RRR, no murmur, no edema Gastrointestinal (Abdomen): Inspection/Auscultation: abdomen normal to inspection; abdomen not distended Musculoskeletal: no cyanosis or clubbing, extremities motor strength 5/5 Skin: no rashes, warm and dry + ecchymosis (Abdomen and on flanks.) Neurologic: moves all extremities and awake Psychiatric: Orientation: alert, oriented to person and cooperative Results & Data Results & Data ([facility]) Vital Signs (Past 12 Hours) Vital Signs Temp Pulse Resp BP Pulse Ox 04/12/20 08:00 36.8 C 81 18 130/75 96 04/11/20 23:26 36.7 C 88 18 120/57 L 99 PG Care Time/CCT Total # of Minutes Spent Total Time Spent with Patient: Total time spent is greater than 50% in coordination of care (as documented) at patient's floor/unit and/or counseling patient: Coding Level of Care Code 60331 Subseq Hosp Care Lvl 2 Diagnoses Rectus sheath hematoma S30.1XXA Supratherapeutic INR R79.1 Severe persistent asthma, poorly-controlled J45.51 Asthma complication type: with acute exacerbation Obstructive sleep apnea of adult G47.33 GERD without esophagitis K21.9 Chronic pain G89.29 Anxiety F41.9 Insomnia G47.00 DVT prophylaxis Z29.9 (1) Severe persistent asthma, poorly-controlled Asthma complication type: with acute exacerbation Qualified Code(s): J45.51 - Severe persistent asthma with (acute) exacerbation
[2020-04-12] MEDS: ALBUTEROL HFA 8 GM INHALER INH PRN (11:14)
[2020-04-12] MEDS: IPRATROPIUM BROMIDE HFA INHALER INH PRN (11:14)
[2020-04-12] MEDS: OXYCODONE/ACETAMINOPHEN 5mg/325mg TAB PO PRN ×3 (12:12→21:16)
--- NOTE | 2020-04-12 12:55 | Surgery Progress Note ---
Date of Service April 12, 2020 Assessment & Plan (1) Rectus sheath hematoma: still having pain but improving with pain medication, trying to wean of IV pain meds H&H stable at 8.1 today, s/p 2 units of PRBCs evening of 04/10/20 No reason for surgical intervention at this time. Continue medical management Dr. Gomez covering this weekend Dr. Davila has seen and examined pt, agrees with above Admission and Anticipated Discharge Date Admission Date: April 10, 2020 Supervising Physician Co-Signing Physician Notes I interviewed and examined this patient I agree with the above note. Pain levels today are unchanged. There is no indication for surgical intervention at this time. Subjective feeling better now than I was this morning, did not have any pain meds throughout night as I was able to sleep hungry + appetite pain around back where bruising is present ambulating up to bathroom Physical Exam Constitutional: + morbidly obese; no acute distress and not ill appearing Gastrointestinal (Abdomen): Inspection/Auscultation: abdomen normal to inspection; abdomen not distended Percussion/Palpation: + abdomen tender (Left side of abdomen) and abdomen soft; no guarding and abdomen not rigid Skin: no rashes, warm and dry Psychiatric: Orientation: alert and oriented x 3 Results & Data ([facility]) Vital Signs (Past 12 Hours) Vital Signs Temp Pulse Resp BP Pulse Ox 04/12/20 11:18 86 18 90 04/12/20 08:00 36.8 C 81 18 130/75 96 Laboratory Results 04/12/20 04/12/20 04/11/20 Range/Units 08:30 08:30 19:26 WBC 11.85 H (4.8-10.8) K/uL RBC 2.76 L (4.2-5.4) M/uL Hgb 8.1 L 7.8 L (12.0-16.0) g/dL Hct 25.5 L 23.8 L (37-47) % MCV 92.4 (80-100) fL MCH 29.3 (25-34) pg MCHC 31.8 L (32-36) g/dL RDW Std Deviation 54.5 H (36.4-46.3) fL RDW Coeff of Felicia 16.2 H (11.5-14.5) % Plt Count 305 (130-400) K/uL MPV 9.0 (7.4-10.4) fL Absolute Nucleated RBC 0.38 H (0-0) K/uL Nucleated RBC % (auto) 3.2 % Sodium 136 (136-145) mmol/L Potassium 4.1 (3.5-5.1) mmol/L Chloride 100 (98-107) mmol/L Carbon Dioxide 29 (21-32) mmol/L Anion Gap 8.0 (3-11) BUN 7 (7-18) mg/dl Creatinine 0.62 (0.6-1.2) mg/dl Est Cr Clr Drug Dosing 196.4 ml/min Est GFR ( Amer) 124.5 Est GFR (Non-Af Amer) 107.4 BUN/Creatinine Ratio 11.3 (10-20) Glucose 97 (70-99) mg/dl Calcium 8.8 (8.5-10.1) mg/dl Blood Type Antibody Screen Crossmatch 04/11/20 04/10/20 Range/Units 14:54 18:52 WBC (4.8-10.8) K/uL RBC (4.2-5.4) M/uL Hgb 7.8 L (12.0-16.0) g/dL Hct 24.3 L (37-47) % MCV (80-100) fL MCH (25-34) pg MCHC (32-36) g/dL RDW Std Deviation (36.4-46.3) fL RDW Coeff of Felicia (11.5-14.5) % Plt Count (130-400) K/uL MPV (7.4-10.4) fL Absolute Nucleated RBC (0-0) K/uL Nucleated RBC % (auto) % Sodium (136-145) mmol/L Potassium (3.5-5.1) mmol/L Chloride (98-107) mmol/L Carbon Dioxide (21-32) mmol/L Anion Gap (3-11) BUN (7-18) mg/dl Creatinine (0.6-1.2) mg/dl Est Cr Clr Drug Dosing ml/min Est GFR ( Amer) Est GFR (Non-Af Amer) BUN/Creatinine Ratio (10-20) Glucose (70-99) mg/dl Calcium (8.5-10.1) mg/dl Blood Type A Positive Antibody Screen NEGATIVE Crossmatch See Detail
[2020-04-12] MEDS: ALBUT/IPRATROP 3MG/0.5MG NEB 3 ML VIAL NEB PRN ×2 (16:53→21:10)
[2020-04-12] MEDS: BACLOFEN 10 MG TAB PO SCH (21:16)
[2020-04-12] MEDS: ZOLPIDEM TARTRATE 10 MG TAB PO PRN (21:16)
[2020-04-12] MEDS: ALPRAZolam 0.5 MG TABLET PO SCH (21:16)
[2020-04-12] MEDS: CETIRIZINE HCL 10 MG TABLET PO SCH (21:17)
[2020-04-12] MEDS: MONTELUKAST SODIUM 10 MG TABLET PO SCH (21:17)
[2020-04-13] MEDS: MoRPHine SULFATE 2 MG/ML CARP IV PRN ×4 (01:53→14:53)
[2020-04-13] MEDS: OXYCODONE/ACETAMINOPHEN 5mg/325mg TAB PO PRN ×2 (01:59→05:26)
[2020-04-13] MEDS: HYDROCODONE/ACETAMINOPHEN 10/325 TAB PO PRN ×3 (02:00→23:31)
[2020-04-13] MEDS: ONDANSETRON INJ 2 MG/ML 2 ML VIAL IV PRN ×2 (05:45→09:04)
[2020-04-13] MEDS: ALPRAZolam 0.5 MG TABLET PO PRN ×2 (05:45→14:52)
[2020-04-13 08:13] LABS: Hematocrit (blood only) 26.6 % (37-47); Hemoglobin 8.2 g/dL (12.0-16.0); Mean Corpuscular Hemoglobin 29.1 pg (25-34); Mean Corpuscular Hgb Conc 30.8 g/dL (32-36); Mean Corpuscular Volume 94.3 fL (80-100); Mean Platelet Volume 9.1 fL (7.4-10.4); Nucleated RBC # (auto) 0.62 K/uL (0-0); Nucleated RBC % (auto) 5.3 %; Platelet Count 360 K/uL (130-400); RDW Coefficient of Variation 16.5 % (11.5-14.5); RDW Standard Deviation 56.3 fL (36.4-46.3); Red Blood Count 2.82 M/uL (4.2-5.4); White Blood Count 11.54 K/uL (4.8-10.8)
[2020-04-13] MEDS: UMECLIDINIUM BROMIDE 62.5MCG/BLISTER 7 PUFFS/INHALER INH SCH (08:22)
[2020-04-13] MEDS: FEXOFENADINE HCL 180 MG TAB PO SCH ×2 (08:23→20:03)
[2020-04-13] MEDS: FLUTICASONE PROPIONATE NA SPR 16 GM BTL NAE SCH (08:23)
[2020-04-13] MEDS: FLUTICASONE/VILANTEROL 100/25MCG 14 PUFFS/INHALER INH SCH (08:23)
[2020-04-13] MEDS: SPIRONOLACTONE 25 MG TAB PO SCH (08:24)
[2020-04-13] MEDS: PANTOprazole 40 MG TAB PO SCH (08:25)
[2020-04-13] MEDS: POTASSIUM CHLORIDE 20 MEQ TABCR PO SCH (08:25)
[2020-04-13] MEDS: predniSONE 20 MG TAB PO SCH (08:25)
[2020-04-13] MEDS: DOCUSATE SODIUM/SENNA 50/8.6MG TAB PO SCH (08:26)
[2020-04-13] MEDS: DICLOFENAC SOD 1% GEL 100 GM TUBE EXT SCH ×4 (08:26→20:04)
[2020-04-13] MEDS ORDERED: MoRPHine SULFATE 4 MG/ML 1 ML CARP\\VIAL IV PRN ×3 (08:51→15:30)
[2020-04-13] MEDS ORDERED: HYDROCODONE/ACETAMOPHEN 5/325MG TAB PO PRN (08:51)
--- NOTE | 2020-04-13 09:05 | Surgery Progress Note ---
Date of Service April 13, 2020 Assessment & Plan (1) Rectus sheath hematoma: seen with Dr. Gomez will add ancef increase morphine, norco Admission and Anticipated Discharge Date Admission Date: April 10, 2020 Subjective having more pain in abdomen, waiting for next round of meds Physical Exam Gastrointestinal (Abdomen): Inspection/Auscultation: + abdominal wall ecchymosis (extensive ecchuymosis, some erythema LLQ), + abdominal edema and + significant pannus Results & Data ([facility]) Vital Signs (Past 12 Hours) Vital Signs Temp Pulse Pulse Resp BP Pulse Ox 04/13/20 07:41 36.8 C 78 16 125/71 96 04/13/20 03:15 88 18 96 04/12/20 22:45 85 16 96 04/12/20 22:33 36.7 C 95 H 16 112/68 97 04/12/20 21:17 111 H 22 96 PG Care Time/CCT Total # of Minutes Spent Total Time Spent with Patient: Total time spent is greater than 50% in coordination of care (as documented) at patient's floor/unit and/or counseling patient: Coding Level of Care Code 46987 Subseq Hosp Care Lvl 1 Diagnoses Rectus sheath hematoma S30.1XXA
[2020-04-13] MEDS: CEFAZOLIN 2000MG 2,000 MG/15 ML SYR IV SCH ×2 (09:40→16:18)
[2020-04-13] MEDS: ALBUT/IPRATROP 3MG/0.5MG NEB 3 ML VIAL NEB PRN (10:00)
--- NOTE | 2020-04-13 15:09 | Hospitalist Progress Note ---
Date of Service April 13, 2020 Assessment & Plan (1) Rectus sheath hematoma: Rectus sheath hematoma due to anticoagulant therapy. Acute blood loss anemia. Suspect secondary to mild trauma with brushing past her walker 2 days previously with supratherapeutic INR. - Patient required 2 PRBCs on 04/10. - Hold warfarin and NSAIDs. - Appreciate input from general surgery -> No surgical need at this time. They do feel cellulitis is a concern. - Hgb steady at 8.2 today. - Will work on pain control today. Started Ancef. (2) Supratherapeutic INR: INR up to 5.6 on admission. - Given Vit K; INR now 1.0 on 04/11. (3) Severe persistent asthma, poorly-controlled: History of bronchial thermoplasty in 2015. Recently started dupilumab injections. - No current exacerbation. - Continue her usual regimen with prednisone 20 mg p.o. daily. DuoNebs 4 times daily as needed (she usually takes this regularly), Symbicort BID, & Spiriva BID. (4) Obstructive sleep apnea of adult: Compliant with CPAP HS in the hospital. (5) GERD without esophagitis: - Switch omeprazole to pantoprazole as per hospital formulary. (6) Chronic pain: - Continue her usual [place] with Percocet & morphine for breakthrough pain. - Hold NSAIDs in setting of rectal sheath hematoma as above. - Baclofen HS. (7) Anxiety: - Continue her usual Xanax regimen. (8) Insomnia: - Continue her usual zolpidem HS. (9) DVT prophylaxis: Chemical anticoagulation contraindicated. - Patient refuses SCDs due to breakdown of skin on chronic steroids. - Patient is ambulating some in the room and reports doing leg exercises to prevent DVT. Admission and Anticipated Discharge Date Admission Date: April 10, 2020 Subjective Still with pain. Reports no fevers/chills, chest pain, shortness of breath, abdominal pain, nausea, or vomiting. Physical Exam Constitutional: WD/WN, vitals as above + acute distress and + morbidly obese Eyes: EOM intact bilaterally; no conjunctival abnormality ENMT: external ear and nose normal, oropharynx normal Neck: trachea midline, no thyromegaly normal visual inspection Respiratory: normal respiratory effort, lungs clear to auscultation no respiratory distress Cardiovascular: RRR, no murmur, no edema Gastrointestinal (Abdomen): Inspection/Auscultation: abdomen normal to inspection; abdomen not distended Musculoskeletal: no cyanosis or clubbing, extremities motor strength 5/5 Skin: no rashes, warm and dry + ecchymosis (Abdomen and on flanks.) Neurologic: moves all extremities and awake Psychiatric: Orientation: alert, oriented to person and cooperative Results & Data Results & Data ([facility]) Vital Signs (Past 12 Hours) Vital Signs Temp Pulse Pulse Resp BP Pulse Ox 04/13/20 10:01 71 18 94 04/13/20 07:41 36.8 C 78 16 125/71 96 04/13/20 03:15 88 18 96 PG Care Time/CCT Total # of Minutes Spent Total Time Spent with Patient: Total time spent is greater than 50% in coordination of care (as documented) at patient's floor/unit and/or counseling patient: Coding Level of Care Code 95530 Subseq Hosp Care Lvl 2 Diagnoses Rectus sheath hematoma S30.1XXA Supratherapeutic INR R79.1 Severe persistent asthma, poorly-controlled J45.51 Asthma complication type: with acute exacerbation Obstructive sleep apnea of adult G47.33 GERD without esophagitis K21.9 Chronic pain G89.29 Anxiety F41.9 Insomnia G47.00 DVT prophylaxis Z29.9 (1) Severe persistent asthma, poorly-controlled Asthma complication type: with acute exacerbation Qualified Code(s): J45.51 - Severe persistent asthma with (acute) exacerbation
[2020-04-13] MEDS ORDERED: OXYCODONE/ACETAMINOPHEN 5mg/325mg TAB PO PRN (15:13)
[2020-04-13] MEDS ORDERED: bisacodyL 10 MG SUPP PR PRN (18:30)
[2020-04-13] MEDS: POLYETHYLENE (MIRALAX) 17 GM PACK PO PRN ×2 (20:00→20:16)
[2020-04-13] MEDS: CETIRIZINE HCL 10 MG TABLET PO SCH (20:01)
[2020-04-13] MEDS: MONTELUKAST SODIUM 10 MG TABLET PO SCH (20:02)
[2020-04-13] MEDS: BACLOFEN 10 MG TAB PO SCH (20:03)
[2020-04-13] MEDS: OXYCODONE HCL IR 5 MG TAB (IMMEDIATE RELEASE) PO PRN (20:08)
[2020-04-13] MEDS: ALPRAZolam 0.5 MG TABLET PO SCH (20:13)
[2020-04-14] MEDS: OXYCODONE HCL IR 5 MG TAB (IMMEDIATE RELEASE) PO PRN ×4 (00:51→20:47)
[2020-04-14] MEDS: CEFAZOLIN 2000MG 2,000 MG/15 ML SYR IV SCH ×3 (00:52→16:22)
[2020-04-14] MEDS: POLYETHYLENE (MIRALAX) 17 GM PACK PO PRN (06:25)
[2020-04-14 07:30] LABS: Hematocrit (blood only) 25.9 % (37-47); Hemoglobin 8.1 g/dL (12.0-16.0); Mean Corpuscular Hemoglobin 30.1 pg (25-34); Mean Corpuscular Hgb Conc 31.3 g/dL (32-36); Mean Corpuscular Volume 96.3 fL (80-100); Mean Platelet Volume 9.2 fL (7.4-10.4); Nucleated RBC # (auto) 0.61 K/uL (0-0); Nucleated RBC % (auto) 4.8 %; Platelet Count 377 K/uL (130-400); RDW Coefficient of Variation 16.5 % (11.5-14.5); RDW Standard Deviation 56.5 fL (36.4-46.3); Red Blood Count 2.69 M/uL (4.2-5.4); White Blood Count 12.82 K/uL (4.8-10.8)
[2020-04-14 08:16] LABS: BUN Creatinine Ratio 16.3 (10-20); Calcium 9.2 mg/dl (8.5-10.1); Creatinine Clr Calc Pharmacy 158.1 ml/min; Est GFR (African American) 106.6; Est GFR (Non-African American) 91.9; Magnesium 2.3 mg/dl (1.8-2.4)
--- NOTE | 2020-04-14 08:24 | Surgery Progress Note ---
Date of Service April 14, 2020 Assessment & Plan (1) Rectus sheath hematoma: WBC: 12.8; patient afebrile Hbg stable at 8.2 Constipation not relieved by miralax, will order some golytely Erythema of pannus somewhat improved, continue on abx for now Continue pain control as needed Pt seen and examined with Dr. Gomez Admission and Anticipated Discharge Date Admission Date: April 10, 2020 Subjective Patient still with some abdominal pain. Otherwise she is tolerating a regular diet. Believes some of her pain is related to constipation. Physical Exam Physical Exam: awake/alert Gastrointestinal (Abdomen): Inspection/Auscultation: + abdominal wall ecchymosis and + significant pannus Results & Data ([facility]) Vital Signs (Past 12 Hours) Vital Signs Temp Pulse Resp BP Pulse Ox 04/13/20 22:00 36.9 C 106 H 18 138/58 L 100 PG Care Time/CCT Total # of Minutes Spent Total Time Spent with Patient: Total time spent is greater than 50% in coordination of care (as documented) at patient's floor/unit and/or counseling patient: Coding Level of Care Code 43926 Subseq Hosp Care Lvl 1 Diagnoses Rectus sheath hematoma S30.1XXA
[2020-04-14] MEDS: FLUTICASONE PROPIONATE NA SPR 16 GM BTL NAE SCH (08:43)
[2020-04-14] MEDS: UMECLIDINIUM BROMIDE 62.5MCG/BLISTER 7 PUFFS/INHALER INH SCH (08:43)
[2020-04-14] MEDS: FLUTICASONE/VILANTEROL 100/25MCG 14 PUFFS/INHALER INH SCH (08:44)
[2020-04-14] MEDS: LAVAGE SOLUTION 4000ML PO SCH ×2 (08:44→16:17)
[2020-04-14] MEDS: FEXOFENADINE HCL 180 MG TAB PO SCH ×2 (08:45→20:48)
[2020-04-14] MEDS: DOCUSATE SODIUM/SENNA 50/8.6MG TAB PO SCH (08:45)
[2020-04-14] MEDS: predniSONE 20 MG TAB PO SCH (08:45)
[2020-04-14] MEDS: DICLOFENAC SOD 1% GEL 100 GM TUBE EXT SCH ×4 (08:46→20:49)
[2020-04-14] MEDS: SPIRONOLACTONE 25 MG TAB PO SCH (08:46)
[2020-04-14] MEDS: PANTOprazole 40 MG TAB PO SCH (08:46)
[2020-04-14] MEDS: POTASSIUM CHLORIDE 20 MEQ TABCR PO SCH (08:46)
[2020-04-14] MEDS: ALPRAZolam 0.5 MG TABLET PO PRN (11:42)
[2020-04-14] MEDS: HYDROCODONE/ACETAMINOPHEN 10/325 TAB PO PRN ×2 (11:45→18:43)
--- NOTE | 2020-04-14 12:20 | Hospitalist Progress Note ---
Date of Service April 14, 2020 Assessment & Plan (1) Rectus sheath hematoma: Rectus sheath hematoma due to anticoagulant therapy. Acute blood loss anemia. Suspect secondary to mild trauma with brushing past her walker 2 days previously with supratherapeutic INR. - Patient required 2 PRBCs on 04/10. - Hold warfarin and NSAIDs. - Appreciate input from general surgery -> No surgical need at this time. - Hgb steady at 8.2 today. - Ancef started on 04/13 by surgical team as they felt there was concern for mild cellulitis in the LLQ of the abdomen. Today (04/14), I do think it is looking some better (less pinkness). Continue cefazolin for now. - Pain control improved today with her really only needing oral medications in the last 24 hours or so. - At this point, surgical team making most of the medication changes. Discharge to home when patient is comfortable and surgical team gives the go-ahead. (2) Supratherapeutic INR: INR up to 5.6 on admission. - Given Vit K; INR now 1.0 on 04/11. (3) Severe persistent asthma, poorly-controlled: History of bronchial thermoplasty in 2015. Recently started dupilumab injections. - No current exacerbation. - Continue her usual regimen with prednisone 20 mg p.o. daily. DuoNebs 4 times daily as needed (she usually takes this regularly), Symbicort BID, & Spiriva BID. (4) Obstructive sleep apnea of adult: Compliant with CPAP HS in the hospital. (5) GERD without esophagitis: - Switch omeprazole to pantoprazole as per hospital formulary. (6) Chronic pain: - Continue her usual [place] with Percocet & morphine for breakthrough pain. - Hold NSAIDs in setting of rectal sheath hematoma as above. - Baclofen HS. (7) Anxiety: - Continue her usual Xanax regimen. (8) Insomnia: - Continue her usual zolpidem HS. (9) DVT prophylaxis: Chemical anticoagulation contraindicated. - Patient refuses SCDs due to breakdown of skin on chronic steroids. - Patient is ambulating some in the room and reports doing leg exercises to prevent DVT. Admission and Anticipated Discharge Date Admission Date: April 10, 2020 Subjective Feeling better today. Some constipation pain, but otherwise, improving. Reports no fevers/chills, chest pain, shortness of breath, nausea, or vomiting. Physical Exam Constitutional: WD/WN, vitals as above + morbidly obese Eyes: EOM intact bilaterally; no conjunctival abnormality ENMT: external ear and nose normal, oropharynx normal Neck: trachea midline, no thyromegaly normal visual inspection Respiratory: normal respiratory effort, lungs clear to auscultation no respiratory distress Cardiovascular: RRR, no murmur, no edema Gastrointestinal (Abdomen): Inspection/Auscultation: abdomen normal to inspection; abdomen not distended Musculoskeletal: no cyanosis or clubbing, extremities motor strength 5/5 Skin: no rashes, warm and dry + ecchymosis (Abdomen and on flanks.) Neurologic: moves all extremities and awake Psychiatric: Orientation: alert, oriented to person and cooperative PG Care Time/CCT Total # of Minutes Spent Total Time Spent with Patient: Total time spent is greater than 50% in coordination of care (as documented) at patient's floor/unit and/or counseling patient: Coding Level of Care Code 68248 Subseq Hosp Care Lvl 2 Diagnoses Rectus sheath hematoma S30.1XXA Supratherapeutic INR R79.1 Severe persistent asthma, poorly-controlled J45.51 Asthma complication type: with acute exacerbation Obstructive sleep apnea of adult G47.33 GERD without esophagitis K21.9 Chronic pain G89.29 Anxiety F41.9 Insomnia G47.00 DVT prophylaxis Z29.9 (1) Severe persistent asthma, poorly-controlled Asthma complication type: with acute exacerbation Qualified Code(s): J45.51 - Severe persistent asthma with (acute) exacerbation
[2020-04-14] MEDS: ALBUT/IPRATROP 3MG/0.5MG NEB 3 ML VIAL NEB PRN ×2 (19:03→22:25)
[2020-04-14] MEDS: ALPRAZolam 0.5 MG TABLET PO SCH (20:46)
[2020-04-14] MEDS: MONTELUKAST SODIUM 10 MG TABLET PO SCH (20:47)
[2020-04-14] MEDS: BACLOFEN 10 MG TAB PO SCH (20:48)
[2020-04-14] MEDS: CETIRIZINE HCL 10 MG TABLET PO SCH (20:50)
[2020-04-14] MEDS ORDERED: FLUTICASONE/VILANTEROL 100/25MCG 14 PUFFS/INHALER INH SCH (21:30)
[2020-04-15] MEDS: OXYCODONE HCL IR 5 MG TAB (IMMEDIATE RELEASE) PO PRN ×4 (00:59→22:05)
[2020-04-15] MEDS: CEFAZOLIN 2000MG 2,000 MG/15 ML SYR IV SCH ×3 (00:59→15:46)
[2020-04-15] MEDS: ALBUT/IPRATROP 3MG/0.5MG NEB 3 ML VIAL NEB PRN ×2 (07:22→20:38)
[2020-04-15] MEDS ORDERED: SOD PHOSPHATE/SOD BIPHOSPHATE ENEMA 132 ML BTL PR STA (08:17)
[2020-04-15] MEDS ORDERED: SOD PHOSPHATE/SOD BIPHOSPHATE ENEMA 132 ML BTL PR PRN (08:17)
[2020-04-15] MEDS: UMECLIDINIUM BROMIDE 62.5MCG/BLISTER 7 PUFFS/INHALER INH SCH (08:23)
[2020-04-15] MEDS: FLUTICASONE PROPIONATE NA SPR 16 GM BTL NAE SCH (08:24)
[2020-04-15] MEDS: HYDROCODONE/ACETAMINOPHEN 10/325 TAB PO PRN ×3 (08:24→23:40)
[2020-04-15] MEDS: FLUTICASONE/VILANTEROL 100/25MCG 14 PUFFS/INHALER INH SCH (08:24)
[2020-04-15] MEDS: SPIRONOLACTONE 25 MG TAB PO SCH (08:25)
[2020-04-15] MEDS: PANTOprazole 40 MG TAB PO SCH (08:26)
[2020-04-15] MEDS: FEXOFENADINE HCL 180 MG TAB PO SCH ×2 (08:26→21:22)
[2020-04-15] MEDS: predniSONE 20 MG TAB PO SCH (08:26)
[2020-04-15] MEDS: DOCUSATE SODIUM/SENNA 50/8.6MG TAB PO SCH (08:26)
[2020-04-15] MEDS: POTASSIUM CHLORIDE 20 MEQ TABCR PO SCH (08:26)
[2020-04-15 08:53] LABS: Hematocrit (blood only) 29.1 % (37-47); Hemoglobin 9.2 g/dL (12.0-16.0); Mean Corpuscular Hemoglobin 30.3 pg (25-34); Mean Corpuscular Hgb Conc 31.6 g/dL (32-36); Mean Corpuscular Volume 95.7 fL (80-100); Mean Platelet Volume 9.2 fL (7.4-10.4); Nucleated RBC # (auto) 0.42 K/uL (0-0); Nucleated RBC % (auto) 3.3 %; Platelet Count 347 K/uL (130-400); RDW Coefficient of Variation 16.6 % (11.5-14.5); RDW Standard Deviation 56.7 fL (36.4-46.3); Red Blood Count 3.04 M/uL (4.2-5.4); White Blood Count 13.01 K/uL (4.8-10.8)
[2020-04-15] MEDS: DICLOFENAC SOD 1% GEL 100 GM TUBE EXT SCH ×4 (09:10→21:24)
--- NOTE | 2020-04-15 09:14 | Surgery Progress Note ---
Date of Service April 15, 2020 Assessment & Plan (1) Rectus sheath hematoma: Patient's Hbg stable 9.2 She is most tender in her lower abdomen/pannus region where the hematoma/ecchymosis is becoming dependent; discussed continuation of conservative measures for today. Will leave it up to Dr. Davila upon his return tomorrow if another CT scan may be indicated for further evaluation? She was ordered miralax and gotlytely yesterday without much improvement in her constipation. Will order fleets enema to be given today Pt seen and examined with Dr. Gomez Admission and Anticipated Discharge Date Admission Date: April 10, 2020 Subjective Patient states she is not feeling well. Says her pain is still present and not improving. She is frustrated about her constipation. Physical Exam Physical Exam: awake/alert, sitting up in bed Gastrointestinal (Abdomen): Inspection/Auscultation: + abdomen distended and + abdominal wall ecchymosis Percussion/Palpation: + abdomen tender (ttp lower midline pannus) Results & Data ([facility]) Vital Signs (Past 12 Hours) Vital Signs Temp Pulse Resp BP Pulse Ox 04/15/20 07:22 107 H 19 94 04/15/20 07:19 37.1 C 108 H 16 104/68 89 L 04/14/20 22:33 36.8 C 91 H 18 118/68 90 04/14/20 22:27 91 H 18 91 PG Care Time/CCT Total # of Minutes Spent Total Time Spent with Patient: Total time spent is greater than 50% in coordination of care (as documented) at patient's floor/unit and/or counseling patient: Coding Level of Care Code 19402 Subseq Hosp Care Lvl 1 Diagnoses Rectus sheath hematoma S30.1XXA
[2020-04-15 09:21] LABS: BUN Creatinine Ratio 9.3 (10-20); Calcium 8.7 mg/dl (8.5-10.1); Creatinine Clr Calc Pharmacy 138.4 ml/min; Est GFR (African American) 90.7; Est GFR (Non-African American) 78.2
--- NOTE | 2020-04-15 12:50 | Hospitalist Progress Note ---
Date of Service April 15, 2020 Assessment & Plan (1) Rectus sheath hematoma: Rectus sheath hematoma due to anticoagulant therapy. Acute blood loss anemia. Suspect secondary to abd wall strain with trying to get out of her relciner with supratherapeutic INR. - Patient required 2 PRBCs on 04/10. -continues with pain requiring opioids, hgb remains stable - continue to Hold warfarin and NSAIDs. - Appreciate input from general surgery -> No surgical need at this time. - Hgb steady to improved at 9.2 today. - Ancef started on 04/13 by surgical team as they felt there was concern for mild cellulitis in the LLQ of the abdomen. No erythema seen today, continues wit h leukocytosis which may also be from chronic prednisone use. Continue cefazolin for now. - continue Pain control - continued stay (2) Supratherapeutic INR: INR up to 5.6 on admission. Pt has home INR machine and reports it was 3 just before she came in Question if home machine is accurate - Given Vit K; INR now 1.0 on 04/11. (3) Severe persistent asthma, poorly-controlled: History of bronchial thermoplasty in 2014. Recently started dupilumab injections. - No current exacerbation. - Continue her usual regimen with prednisone 20 mg p.o. daily. DuoNebs 4 times daily as needed (she usually takes this regularly), Symbicort BID, & Spiriva BID or formulary equivalents. (4) Obstructive sleep apnea of adult: Compliant with CPAP HS in the hospital. (5) GERD without esophagitis: - Switch omeprazole to pantoprazole as per hospital formulary. (6) Chronic pain: - Continue her usual [place] - Hold NSAIDs in setting of rectal sheath hematoma as above. - Baclofen HS. (7) Anxiety: - Continue her usual Xanax regimen. (8) Insomnia: - Continue her usual zolpidem HS. (9) Edema: chronic, worsening with blood transfusions and not getting usual lasix reports lasix gives bad cramps in hands and feet -try bumex 1mg daily instead -continue aldactone continue KCl 20meq po daily -add on Magnesium 400mg po bid fo muscle cramps -continue to fluid restrict-she does this on her own (10) Constipation: was severe, now had a BM on 04/15 after enema, Co lytely prep -increase Mralax to bid -continue senna/docusate adding on magnesium as above which darrell also help (11) DVT prophylaxis: Chemical anticoagulation contraindicated due to hematoma and acute blood loss anemia . - Patient refuses SCDs due to breakdown of skin on chronic steroids. - Patient is ambulating some in the room and reports doing leg exercises to prevent DVT. With a h/o DVT/PE in the past--> consider restarting coumadin after discharge given morbid obesity and sedentary lifestyle but perhaps at lower parameter for INR and make sure home INR machine is accurate Dispo-continued stay Admission and Anticipated Discharge Date Admission Date: April 10, 2020 Subjective Pt still having lower abd pain. Finally had a large BM today after many days of "sitting on a poop ball." has noticed hands are swelling and has not been getting her lasix because she was getting bad hand and foot cramps with it. Review of Systems Review of Systems: All systems reviewed & are unremarkable except as noted in HPI & below Physical Exam Constitutional: WD/WN, vitals as above + morbidly obese Eyes: + anicteric sclerae Neck: trachea midline, no thyromegaly Respiratory: normal respiratory effort, lungs clear to auscultation Cardiovascular: Rate/Rhythm: regular rate and regular rhythm Heart Sounds: no murmur Extremities: + edema (2+ pitting edema to knees bilat, hands with 1+ pitting edema bilat) Chest (Breasts): Chest: normal inspection of chest Gastrointestinal (Abdomen): Inspection/Auscultation: normal bowel sounds and + abdominal wall ecchymosis (acorss lower abd,mostly in midline); + abdomen abnormal to inspection Percussion/Palpation: + abdomen tender (at site of hematoma) and abdomen soft Musculoskeletal: Extremities: extremities normal to inspection; no cyanosis a nd no clubbing Skin: no rashes and no erythema (no erythema or warmth around abd wall hematoma) Neurologic: moves all extremities and awake; no focal motor deficits Psychiatric: A+Ox3, euthymic affect Lymphatic: no lymphedema Results & Data Results & Data ([facility]) Vital Signs (Past 12 Hours) Vital Signs Temp Pulse Resp BP Pulse Ox 04/15/20 07:22 107 H 19 94 04/15/20 07:19 37.1 C 108 H 16 104/68 89 L Laboratory Results 04/15/20 04/15/20 Range/Units 08:43 08:43 WBC 13.01 H (4.8-10.8) K/uL RBC 3.04 L (4.2-5.4) M/uL Hgb 9.2 L (12.0-16.0) g/dL Hct 29.1 L (37-47) % MCV 95.7 (80-100) fL MCH 30.3 (25-34) pg MCHC 31.6 L (32-36) g/dL RDW Std Deviation 56.7 H (36.4-46.3) fL RDW Coeff of Felicia 16.6 H (11.5-14.5) % Plt Count 347 (130-400) K/uL MPV 9.2 (7.4-10.4) fL Absolute Nucleated RBC 0.42 H (0-0) K/uL Nucleated RBC % (auto) 3.3 % Sodium 137 (136-145) mmol/L Potassium 4.0 (3.5-5.1) mmol/L Chloride 99 (98-107) mmol/L Carbon Dioxide 29 (21-32) mmol/L Anion Gap 8.0 (3-11) BUN 8 D (7-18) mg/dl Creatinine 0.88 (0.6-1.2) mg/dl Est Cr Clr Drug Dosing 138.4 ml/min Est GFR ( Amer) 90.7 Est GFR (Non-Af Amer) 78.2 BUN/Creatinine Ratio 9.3 L (10-20) Glucose 143 H (70-99) mg/dl Calcium 8.7 (8.5-10.1) mg/dl PG Care Time/CCT Total # of Minutes Spent Total Time Spent with Patient: Total time spent is greater than 50% in coordination of care (as documented) at patient's floor/unit and/or counseling patient: Coding Level of Care Code 85116 Subseq Hosp Care Lvl 3 Diagnoses Rectus sheath hematoma S30.1XXA Supratherapeutic INR R79.1 Severe persistent asthma, poorly-controlled J45.51 Asthma complication type: with acute exacerbation Obstructive sleep apnea of adult G47.33 GERD without esophagitis K21.9 Chronic pain G89.29 Anxiety F41.9 Insomnia G47.00 Edema R60.9 Constipation K59.00 DVT prophylaxis Z29.9 (1) Severe persistent asthma, poorly-controlled Asthma complication type: with acute exacerbation Qualified Code(s): J45.51 - Severe persistent asthma with (acute) exacerbation
[2020-04-15] MEDS: BUMETANIDE 1 MG TAB PO SCH (12:55)
[2020-04-15] MEDS: MAGNESIUM OXIDE 400 MG TAB PO SCH ×2 (12:55→21:23)
[2020-04-15] MEDS: POLYETHYLENE (MIRALAX) 17 GM PACK PO SCH (21:23)
[2020-04-15] MEDS: MONTELUKAST SODIUM 10 MG TABLET PO SCH (21:23)
[2020-04-15] MEDS: CETIRIZINE HCL 10 MG TABLET PO SCH (21:23)
[2020-04-15] MEDS: BACLOFEN 10 MG TAB PO SCH (21:23)
[2020-04-15] MEDS: ALPRAZolam 0.5 MG TABLET PO SCH (21:24)
[2020-04-16] MEDS: CEFAZOLIN 2000MG 2,000 MG/15 ML SYR IV SCH ×3 (01:58→17:59)
[2020-04-16] MEDS: OXYCODONE HCL IR 5 MG TAB (IMMEDIATE RELEASE) PO PRN ×5 (02:05→20:14)
[2020-04-16] MEDS: ZOLPIDEM TARTRATE 10 MG TAB PO PRN (02:07)
[2020-04-16 07:00] LABS: Basophils # (auto) 0.03 K/uL (0-0.2); Basophils % (auto) 0.2 %; Eosinophils # (auto) 0.26 K/uL (0-0.5); Hematocrit (blood only) 27.9 % (37-47); Hemoglobin 8.6 g/dL (12.0-16.0); Immature Granulocytes # (auto) 0.22 K/uL (0.00-0.02); Immature Granulocytes % (auto) 1.7 %; Lymphocytes # (auto) 2.11 K/uL (1.2-3.4); Lymphocytes % (auto) 16.5 %; Mean Corpuscular Hemoglobin 29.1 pg (25-34); Mean Corpuscular Hgb Conc 30.8 g/dL (32-36); Mean Corpuscular Volume 94.3 fL (80-100); Mean Platelet Volume 9.3 fL (7.4-10.4); Monocytes # (auto) 0.78 K/uL (0.11-0.59); Monocytes % (auto) 6.1 %; Neutrophils # (auto) 9.35 K/uL (1.4-6.5); Neutrophils % (auto) 73.5 %; Nucleated RBC # (auto) 0.36 K/uL (0-0); Nucleated RBC % (auto) 2.8 %; Platelet Count 326 K/uL (130-400); RDW Coefficient of Variation 16.4 % (11.5-14.5); RDW Standard Deviation 55.3 fL (36.4-46.3); Red Blood Count 2.96 M/uL (4.2-5.4); White Blood Count 12.75 K/uL (4.8-10.8)
[2020-04-16 07:12] LABS: Prothrombin Time 10.9 Seconds (9.0-12.0)
--- NOTE | 2020-04-16 07:13 | Surgery Progress Note ---
Date of Service April 16, 2020 Assessment & Plan (1) Rectus sheath hematoma: Pain persists Ecchymosis of lower abdomen WBC 13,000 but has been afebrile As multiple possible etiologies for elevated white count Doubt abscess at this time Continue supportive measures H&H is stable Surgical intervention would be a last resort especially considering her pulmonary status. Admission and Anticipated Discharge Date Admission Date: April 10, 2020 Subjective Became short of breath walking from bathroom to bed Still with pain in the lower abdomen especially Tolerating diet No nausea or vomiting Physical Exam Gastrointestinal (Abdomen): Percussion/Palpation: + abdomen tender (Lower abdomen and area of ecchymosis) Significant ecchymosis lower abdomen Results & Data ([facility]) Vital Signs (Past 12 Hours) Vital Signs Temp Pulse Pulse Resp BP Pulse Ox 04/16/20 02:30 103 H 16 90 04/15/20 22:00 36.7 C 96 H 18 131/80 94 04/15/20 20:38 101 H 16 96 Laboratory Results 04/16/20 04/16/20 04/16/20 Range/Units 06:38 06:38 06:38 WBC 12.75 H (4.8-10.8) K/uL RBC 2.96 L (4.2-5.4) M/uL Hgb 8.6 L (12.0-16.0) g/dL Hct 27.9 L (37-47) % MCV 94.3 (80-100) fL MCH 29.1 (25-34) pg MCHC 30.8 L (32-36) g/dL RDW Std Deviation 55.3 H (36.4-46.3) fL RDW Coeff of Felicia 16.4 H (11.5-14.5) % Plt Count 326 (130-400) K/uL MPV 9.3 (7.4-10.4) fL Immature Gran % (Auto) 1.7 % Neut % (Auto) 73.5 % Lymph % (Auto) 16.5 % [place] % (Auto) 6.1 % Eos % (Auto) 2.0 % Baso % (Auto) 0.2 % Neut # (Auto) 9.35 H (1.4-6.5) K/uL Lymph # (Auto) 2.11 (1.2-3.4) K/uL [place] # (Auto) 0.78 H (0.11-0.59) K/uL Eos # (Auto) 0.26 (0-0.5) K/uL Baso # (Auto) 0.03 (0-0.2) K/uL Immature Gran # (Auto) 0.22 H (0.00-0.02) K/uL Absolute Nucleated RBC 0.36 H (0-0) K/uL Nucleated RBC % (auto) 2.8 % PT Pending INR Pending Sodium Pending (136-145) mmol/L Potassium Pending (3.5-5.1) mmol/L Chloride Pending (98-107) mmol/L Carbon Dioxide Pending (21-32) mmol/L Anion Gap Pending (3-11) BUN Pending (7-18) mg/dl Creatinine Pending (0.6-1.2) mg/dl Est Cr Clr Drug Dosing Pending ml/min Est GFR ( Amer) Pending Est GFR (Non-Af Amer) Pending BUN/Creatinine Ratio Pending (10-20) Glucose Pending (70-99) mg/dl Calcium Pending (8.5-10.1) mg/dl Magnesium Pending 04/15/20 04/15/20 Range/Units 08:43 08:43 WBC 13.01 H (4.8-10.8) K/uL RBC 3.04 L (4.2-5.4) M/uL Hgb 9.2 L (12.0-16.0) g/dL Hct 29.1 L (37-47) % MCV 95.7 (80-100) fL MCH 30.3 (25-34) pg MCHC 31.6 L (32-36) g/dL RDW Std Deviation 56.7 H (36.4-46.3) fL RDW Coeff of Felicia 16.6 H (11.5-14.5) % Plt Count 347 (130-400) K/uL MPV 9.2 (7.4-10.4) fL Immature Gran % (Auto) % Neut % (Auto) % Lymph % (Auto) % [place] % (Auto) % Eos % (Auto) % Baso % (Auto) % Neut # (Auto) (1.4-6.5) K/uL Lymph # (Auto) (1.2-3.4) K/uL [place] # (Auto) (0.11-0.59) K/uL Eos # (Auto) (0-0.5) K/uL Baso # (Auto) (0-0.2) K/uL Immature Gran # (Auto) (0.00-0.02) K/uL Absolute Nucleated RBC 0.42 H (0-0) K/uL Nucleated RBC % (auto) 3.3 % PT INR Sodium 137 (136-145) mmol/L Potassium 4.0 (3.5-5.1) mmol/L Chloride 99 (98-107) mmol/L Carbon Dioxide 29 (21-32) mmol/L Anion Gap 8.0 (3-11) BUN 8 D (7-18) mg/dl Creatinine 0.88 (0.6-1.2) mg/dl Est Cr Clr Drug Dosing 138.4 ml/min Est GFR ( Amer) 90.7 Est GFR (Non-Af Amer) 78.2 BUN/Creatinine Ratio 9.3 L (10-20) Glucose 143 H (70-99) mg/dl Calcium 8.7 (8.5-10.1) mg/dl Magnesium
[2020-04-16 07:17] LABS: BUN Creatinine Ratio 11.5 (10-20); Calcium 8.6 mg/dl (8.5-10.1); Est GFR (African American) 119.6; Est GFR (Non-African American) 103.2; Magnesium 2.4 mg/dl (1.8-2.4); Potassium 3.8 mmol/L (3.5-5.1)
[2020-04-16 07:22] LABS: Polychromasia 1+
[2020-04-16] MEDS: POTASSIUM CHLORIDE 20 MEQ TABCR PO SCH (07:39)
[2020-04-16] MEDS: BUMETANIDE 1 MG TAB PO SCH (07:40)
[2020-04-16] MEDS: DOCUSATE SODIUM/SENNA 50/8.6MG TAB PO SCH (07:40)
[2020-04-16] MEDS: PANTOprazole 40 MG TAB PO SCH (07:40)
[2020-04-16] MEDS: MAGNESIUM OXIDE 400 MG TAB PO SCH ×2 (07:40→20:17)
[2020-04-16] MEDS: SPIRONOLACTONE 25 MG TAB PO SCH (07:40)
[2020-04-16] MEDS: FEXOFENADINE HCL 180 MG TAB PO SCH ×2 (07:40→20:17)
[2020-04-16] MEDS: predniSONE 20 MG TAB PO SCH (07:40)
[2020-04-16] MEDS: FLUTICASONE PROPIONATE NA SPR 16 GM BTL NAE SCH (07:41)
[2020-04-16] MEDS: POLYETHYLENE (MIRALAX) 17 GM PACK PO SCH ×2 (07:41→20:12)
[2020-04-16] MEDS: DICLOFENAC SOD 1% GEL 100 GM TUBE EXT SCH ×4 (07:42→20:16)
[2020-04-16] MEDS: FLUTICASONE/VILANTEROL 100/25MCG 14 PUFFS/INHALER INH SCH (07:42)
[2020-04-16] MEDS: ALPRAZolam 0.5 MG TABLET PO PRN ×2 (07:50→16:04)
[2020-04-16] MEDS: UMECLIDINIUM BROMIDE 62.5MCG/BLISTER 7 PUFFS/INHALER INH SCH (08:05)
[2020-04-16] MEDS: HYDROCODONE/ACETAMINOPHEN 10/325 TAB PO PRN ×2 (09:51→17:58)
--- NOTE | 2020-04-16 14:54 | Hospitalist Progress Note ---
Date of Service April 16, 2020 Assessment & Plan (1) Rectus sheath hematoma: Rectus sheath hematoma due to anticoagulant therapy. Acute blood loss anemia. Suspect secondary to abd wall strain with trying to get out of her relciner with supratherapeutic INR. - Patient required 2 PRBCs on 04/10. -continues with pain requiring opioids, hgb slight drop today to 8.6, with some increased pain - continue to Hold warfarin and NSAIDs. - Appreciate input from general surgery -> No surgical need at this time. - Ancef started on 04/13 by surgical team as they felt there was concern for mild cellulitis in the LLQ of the abdomen. No erythema seen today, continues with leukocytosis which may also be from chronic prednisone use. Continue cefazolin for now. - continue Pain control - continued stay -check CBC now and again in AM (2) Supratherapeutic INR: INR up to 5.6 on admission. Pt has home INR machine and reports it was 3 just before she came in Question if home machine is accurate - Given Vit K; INR now 1.0 on 04/11. (3) Severe persistent asthma, poorly-controlled: History of bronchial thermoplasty in 2015. Recently started dupilumab injections. - No current exacerbation. - Continue her usual regimen with prednisone 20 mg p.o. daily. DuoNebs 4 times daily as needed (she usually takes this regularly), Symbicort BID, & Spiriva BID or formulary equivalents. (4) Obstructive sleep apnea of adult: Compliant with CPAP HS in the hospital. (5) GERD without esophagitis: - Switch omeprazole to pantoprazole as per hospital formulary. (6) Chronic pain: - Continue her usual [place] - Hold NSAIDs in setting of rectal sheath hematoma as above. - Baclofen HS. (7) Anxiety: - Continue her usual Xanax regimen. (8) Insomnia: - Continue her usual zolpidem HS. (9) Edema: chronic, worsening with blood transfusions and not getting usual lasix reports lasix gives bad cramps in hands and feet Now improving after starting Bumex, renal function stable, not getting cramps with Bumex and starting magnesium -continue bumex 1mg daily -continue aldactone continue KCl 20meq po daily -added on Magnesium 400mg po bid for muscle cramps -continue to fluid restrict-she does this on her own (10) Constipation: was severe, now had a BM on 04/15 after enema, Co miladis prep Had another BM 04/16 -continue Mralax bid -continue senna/docusate adding on magnesium as above which will also help (11) DVT prophylaxis: Chemical anticoagulation contraindicated due to hematoma and acute blood loss anemia . - Patient refuses SCDs due to breakdown of skin on chronic steroids. - Patient is ambulating some in the room and reports doing leg exercises to prevent DVT. With a h/o DVT/PE in the past--> consider restarting coumadin after discharge given morbid obesity and sedentary lifestyle but perhaps at lower parameter for INR and make sure home INR machine is accurate Dispo-continued stay Admission and Anticipated Discharge Date Admission Date: April 10, 2020 Subjective Having burning pain in lower abdomen like something is stretching. SOB is improved, hand and leg swelling improved, making a lot of urine. Is OOB and ambu lating to the BR. No cramping in hands and feet since starting Bumex Review of Systems Review of Systems: All systems reviewed & are unremarkable except as noted in HPI & below Physical Exam Constitutional: WD/WN, vitals as above + morbidly obese Eyes: + anicteric sclerae Neck: trachea midline, no thyromegaly Respiratory: normal respiratory effort, lungs clear to auscultation Cardiovascular: Rate/Rhythm: regular rate and regular rhythm Heart Sounds: no murmur Extremities: + edema (1+ pitting edema to knees bilat, hands with trace+ pitting edema bilat-impr) Chest (Breasts): Chest: normal inspection of chest Gastrointestinal (Abdomen): Inspection/Auscultation: normal bowel sounds and + abdominal wall ecchymosis (acorss lower abd,mostly in midline); + abdomen abnormal to inspection Percussion/Palpation: + abdomen tender (at site of hematoma) and abdomen soft Musculoskeletal: Extremities: extremities normal to inspection; no cyanosis and no clubbing Skin: no rashes and no erythema (no erythema or warmth around abd wall hematoma) Neurologic: moves all extremities and awake; no focal motor deficits Psychiatric: A+Ox3, euthymic affect Lymphatic: no lymphedema Results & Data Results & Data ([facility]) Vital Signs (Past 12 Hours) Vital Signs Temp Pulse Resp BP Pulse Ox 04/16/20 07:37 36.9 C 103 H 18 138/88 90 Laboratory Results 04/16/20 04/16/20 04/16/20 Range/Units 06:38 06:38 06:38 WBC 12.75 H (4.8-10.8) K/uL RBC 2.96 L (4.2-5.4) M/uL Hgb 8.6 L (12.0-16.0) g/dL Hct 27.9 L (37-47) % MCV 94.3 (80-100) fL MCH 29.1 (25-34) pg MCHC 30.8 L (32-36) g/dL RDW Std Deviation 55.3 H (36.4-46.3) fL RDW Coeff of Felicia 16.4 H (11.5-14.5) % Plt Count 326 (130-400) K/uL MPV 9.3 (7.4-10.4) fL Immature Gran % (Auto) 1.7 % Neut % (Auto) 73.5 % Lymph % (Auto) 16.5 % [place] % (Auto) 6.1 % Eos % (Auto) 2.0 % Baso % (Auto) 0.2 % Neut # (Auto) 9.35 H (1.4-6.5) K/uL Lymph # (Auto) 2.11 (1.2-3.4) K/uL [place] # (Auto) 0.78 H (0.11-0.59) K/uL Eos # (Auto) 0.26 (0-0.5) K/uL Baso # (Auto) 0.03 (0-0.2) K/uL Immature Gran # (Auto) 0.22 H (0.00-0.02) K/uL Absolute Nucleated RBC 0.36 H (0-0) K/uL Nucleated RBC % (auto) 2.8 % Polychromasia 1+ PT 10.9 (9.0-12.0) Seconds INR 1.0 (0.9-1.1) Sodium 138 (136-145) mmol/L Potassium 3.8 (3.5-5.1) mmol/L Chloride 100 (98-107) mmol/L Carbon Dioxide 30 (21-32) mmol/L Anion Gap 8.0 (3-11) BUN 8 (7-18) mg/dl Creatinine 0.70 (0.6-1.2) mg/dl Est Cr Clr Drug Dosing 174.0 ml/min Est GFR ( Amer) 119.6 Est GFR (Non-Af Amer) 103.2 BUN/Creatinine Ratio 11.5 (10-20) Glucose 109 H (70-99) mg/dl Calcium 8.6 (8.5-10.1) mg/dl Magnesium 2.4 (1.8-2.4) mg/dl PG Care Time/CCT Total # of Minutes Spent Total Time Spent with Patient: Total time spent is greater than 50% in coordination of care (as documented) at patient's floor/unit and/or counseling patient: Coding Level of Care Code 85866 Subseq Hosp Care Lvl 2 Diagnoses Rectus sheath hematoma S30.1XXA Supratherapeutic INR R79.1 Severe persistent asthma, poorly-controlled J45.51 Asthma complication type: with acute exacerbation Obstructive sleep apnea of adult G47.33 GERD without esophagitis K21.9 Chronic pain G89.29 Anxiety F41.9 Insomnia G47.00 Edema R60.9 Constipation K59.00 DVT prophylaxis Z29.9 (1) Severe persistent asthma, poorly-controlled Asthma complication type: with acute exacerbation Qualified Code(s): J45.51 - Severe persistent asthma with (acute) exacerbation
[2020-04-16 16:11] LABS: Hematocrit (blood only) 28.3 % (37-47); Hemoglobin 8.6 g/dL (12.0-16.0); Mean Corpuscular Hemoglobin 28.9 pg (25-34); Mean Corpuscular Hgb Conc 30.4 g/dL (32-36); Mean Platelet Volume 9.2 fL (7.4-10.4); Nucleated RBC % (auto) 2.8 %; Platelet Count 371 K/uL (130-400); RDW Coefficient of Variation 16.2 % (11.5-14.5); RDW Standard Deviation 55.2 fL (36.4-46.3); Red Blood Count 2.98 M/uL (4.2-5.4); White Blood Count 14.37 K/uL (4.8-10.8)
[2020-04-16] MEDS: ALPRAZolam 0.5 MG TABLET PO SCH (20:15)
[2020-04-16] MEDS: MONTELUKAST SODIUM 10 MG TABLET PO SCH (20:16)
[2020-04-16] MEDS: BACLOFEN 10 MG TAB PO SCH (20:16)
[2020-04-16] MEDS: CETIRIZINE HCL 10 MG TABLET PO SCH (20:17)
[2020-04-17] MEDS: OXYCODONE HCL IR 5 MG TAB (IMMEDIATE RELEASE) PO PRN ×3 (00:17→11:50)
[2020-04-17] MEDS: CEFAZOLIN 2000MG 2,000 MG/15 ML SYR IV SCH ×3 (00:18→16:38)
[2020-04-17 07:31] LABS: Basophils # (auto) 0.03 K/uL (0-0.2); Basophils % (auto) 0.2 %; Eosinophils # (auto) 0.38 K/uL (0-0.5); Hematocrit (blood only) 28.8 % (37-47); Hemoglobin 8.7 g/dL (12.0-16.0); Immature Granulocytes # (auto) 0.22 K/uL (0.00-0.02); Immature Granulocytes % (auto) 1.7 %; Lymphocytes # (auto) 1.98 K/uL (1.2-3.4); Lymphocytes % (auto) 15.5 %; Mean Corpuscular Hemoglobin 28.9 pg (25-34); Mean Corpuscular Hgb Conc 30.2 g/dL (32-36); Mean Corpuscular Volume 95.7 fL (80-100); Mean Platelet Volume 9.3 fL (7.4-10.4); Monocytes # (auto) 0.86 K/uL (0.11-0.59); Monocytes % (auto) 6.7 %; Neutrophils # (auto) 9.29 K/uL (1.4-6.5); Neutrophils % (auto) 72.9 %; Nucleated RBC # (auto) 0.52 K/uL (0-0); Platelet Count 372 K/uL (130-400); RDW Coefficient of Variation 16.4 % (11.5-14.5); RDW Standard Deviation 56.6 fL (36.4-46.3); Red Blood Count 3.01 M/uL (4.2-5.4); White Blood Count 12.76 K/uL (4.8-10.8)
--- NOTE | 2020-04-17 07:48 | Surgery Progress Note ---
Date of Service April 17, 2020 Assessment & Plan (1) Rectus sheath hematoma: Feeling much better today H&H is stable White count has decreased today Encourage ambulation Admission and Anticipated Discharge Date Admission Date: April 10, 2020 Subjective Feels much better today Much less burning today Had more energy last night Tolerating diet No nausea or vomiting Afebrile Results & Data ([facility]) Vital Signs (Past 12 Hours) Vital Signs Temp Pulse Pulse Resp BP Pulse Ox 04/17/20 06:38 37.0 C 100 H 18 124/78 94 04/16/20 23:28 96 H 18 92 04/16/20 23:16 36.8 C 100 H 18 147/74 H 91 Laboratory Results 04/17/20 04/17/20 04/16/20 Range/Units 06:57 06:57 15:50 WBC 12.76 H 14.37 H (4.8-10.8) K/uL RBC 3.01 L 2.98 L (4.2-5.4) M/uL Hgb 8.7 L 8.6 L (12.0-16.0) g/dL Hct 28.8 L 28.3 L (37-47) % MCV 95.7 95.0 (80-100) fL MCH 28.9 28.9 (25-34) pg MCHC 30.2 L 30.4 L (32-36) g/dL RDW Std Deviation 56.6 H 55.2 H (36.4-46.3) fL RDW Coeff of Felicia 16.4 H 16.2 H (11.5-14.5) % Plt Count 372 371 (130-400) K/uL MPV 9.3 9.2 (7.4-10.4) fL Immature Gran % (Auto) 1.7 % Neut % (Auto) 72.9 % Lymph % (Auto) 15.5 % [place] % (Auto) 6.7 % Eos % (Auto) 3.0 % Baso % (Auto) 0.2 % Neut # (Auto) 9.29 H (1.4-6.5) K/uL Lymph # (Auto) 1.98 (1.2-3.4) K/uL [place] # (Auto) 0.86 H (0.11-0.59) K/uL Eos # (Auto) 0.38 (0-0.5) K/uL Baso # (Auto) 0.03 (0-0.2) K/uL Immature Gran # (Auto) 0.22 H (0.00-0.02) K/uL Absolute Nucleated RBC 0.52 H 0.40 H (0-0) K/uL Nucleated RBC % (auto) 4.0 2.8 % Sodium Pending Potassium Pending Chloride Pending Carbon Dioxide Pending Anion Gap Pending BUN Pending Creatinine Pending Est Cr Clr Drug Dosing Pending Est GFR ( Amer) Pending Est GFR (Non-Af Amer) Pending BUN/Creatinine Ratio Pending Glucose Pending Calcium Pending Magnesium Pending
[2020-04-17 07:58] LABS: Polychromasia 1+
[2020-04-17 08:01] LABS: BUN Creatinine Ratio 13.4 (10-20); Calcium 8.7 mg/dl (8.5-10.1); Creatinine Clr Calc Pharmacy 158.1 ml/min; Est GFR (African American) 106.6; Est GFR (Non-African American) 91.9; Magnesium 2.5 mg/dl (1.8-2.4); Potassium 3.7 mmol/L (3.5-5.1)
[2020-04-17] MEDS: DOCUSATE SODIUM/SENNA 50/8.6MG TAB PO SCH (08:28)
[2020-04-17] MEDS: predniSONE 20 MG TAB PO SCH (08:28)
[2020-04-17] MEDS: PANTOprazole 40 MG TAB PO SCH (08:28)
[2020-04-17] MEDS: ERGOCALCIFEROL 50,000 UNITS CAP PO SCH (08:29)
[2020-04-17] MEDS: MAGNESIUM OXIDE 400 MG TAB PO SCH ×2 (08:29→20:44)
[2020-04-17] MEDS: SPIRONOLACTONE 25 MG TAB PO SCH (08:29)
[2020-04-17] MEDS: POTASSIUM CHLORIDE 20 MEQ TABCR PO SCH (08:29)
[2020-04-17] MEDS: BUMETANIDE 1 MG TAB PO SCH (08:29)
[2020-04-17] MEDS: UMECLIDINIUM BROMIDE 62.5MCG/BLISTER 7 PUFFS/INHALER INH SCH (08:30)
[2020-04-17] MEDS: FLUTICASONE/VILANTEROL 100/25MCG 14 PUFFS/INHALER INH SCH (08:30)
[2020-04-17] MEDS: POLYETHYLENE (MIRALAX) 17 GM PACK PO SCH ×2 (08:30→20:45)
[2020-04-17] MEDS: FLUTICASONE PROPIONATE NA SPR 16 GM BTL NAE SCH (08:30)
[2020-04-17] MEDS: DICLOFENAC SOD 1% GEL 100 GM TUBE EXT SCH ×4 (08:31→20:45)
[2020-04-17] MEDS: FEXOFENADINE HCL 180 MG TAB PO SCH ×2 (08:32→20:45)
[2020-04-17] MEDS: ALBUT/IPRATROP 3MG/0.5MG NEB 3 ML VIAL NEB PRN (10:16)
--- NOTE | 2020-04-17 14:48 | Hospitalist Progress Note ---
Date of Service April 17, 2020 Assessment & Plan (1) Rectus sheath hematoma: Rectus sheath hematoma due to anticoagulant therapy. Acute blood loss anemia. Suspect secondary to abd wall strain with trying to get out of her relciner with supratherapeutic INR. - Patient required 2 PRBCs on 04/10. -continues with pain requiring opioids, hgb stable at 8.6 - continue to Hold warfarin and NSAIDs. - Appreciate input from general surgery -> No surgical need at this time. - Ancef started on 04/13 by surgical team as they felt there was concern for mild cellulitis in the LLQ of the abdomen. No erythema seen today, continues with leukocytosis which may also be from chronic prednisone use and is improved today down to 12. Continue cefazolin for now and plan to convert to keflex to finish out 7 day course on discharge. - continue Pain control - continued stay but hopeful for dc to home tomorrow -check CBC in AM (2) Supratherapeutic INR: INR up to 5.6 on admission. Pt has home INR machine and reports it was 3 just before she came in Question if home machine is accurate - Given Vit K; INR now 1.0 on 04/11. (3) Anemia: Acute blood loss anemia hgb baseline 12 just 2 weeks ago, dropped to 6.9 on admission from rectus sheath hematoma transfused 2 units PRBCs, continues to hold stable at 8.6 -follow CBC (4) Severe persistent asthma, poorly-controlled: History of bronchial thermoplasty in 2014. Recently started dupilumab injections. - No current exacerbation. - Continue her usual regimen with prednisone 20 mg p.o. daily. DuoNebs 4 times daily as needed (she usually takes this regularly), Symbicort BID, & Spiriva BID or formulary equivalents. (5) Obstructive sleep apnea of adult: Compliant with CPAP HS in the hospital. (6) GERD without esophagitis: - Switch omeprazole to pantoprazole as per hospital formulary. (7) Chronic pain: - Continue her usual [place] - Hold NSAIDs in setting of rectal sheath hematoma as above. - Baclofen HS. (8) Anxiety: - Continue her usual Xanax regimen. (9) Insomnia: - Continue her usual zolpidem HS. (10) Edema: chronic, worsening with blood transfusions and not getting usual lasix reports lasix gives bad cramps in hands and feet Now much improved after starting Bumex, renal function stable, not getting cramps with Bumex and starting magnesium -continue bumex 1mg daily -continue aldactone continue KCl 20meq po daily -added on Magnesium 400mg po bid for muscle cramps -continue to fluid restrict-she does this on her own (11) Constipation: was severe, now had a BM on 04/15 after enema, Co lytely prep Had another BM 04/16 and 04/17 -continue Miralax bid -continue senna/docusate added on magnesium as above which will also help (12) DVT prophylaxis: Chemical anticoagulation contraindicated due to hematoma and acute blood loss anemia . - Patient refuses SCDs due to breakdown of skin on chronic steroids. - Patient is ambulating some in the room and reports doing leg exercises to prevent DVT. With a h/o DVT/PE in the past--> consider restarting coumadin after discharge given morbid obesity and sedentary lifestyle but perhaps at lower parameter for INR and make sure home INR machine is accurate Dispo-continued stay but hopeful for discharge to home tomorrow Admission and Anticipated Discharge Date Admission Date: April 10, 2020 Anticipated date of discharge: 04/18/20 Subjective Still requiring oxycodone regularly for pain, having pain in lower abdomen. Otherwise, swelling is down in hands and feet. Is OOB and ambulating in room. No SOB. Is moving bowels. No cramping Review of Systems Review of Systems: All systems reviewed & are unremarkable except as noted in HPI & below Physical Exam Constitutional: WD/WN, vitals as above + morbidly obese Eyes: + anicteric sclerae Neck: trachea midline, no thyromegaly Respiratory: normal respiratory effort, lungs clear to auscultation Cardiovascular: Rate/Rhythm: regular rate and regular rhythm Heart Sounds: no murmur Extremities: + edema (trace edema to knees bilat, hands with trace+ pitting edema bilat-impr) Chest (Breasts): Chest: normal inspection of chest Gastrointestinal (Abdomen): Inspection/Auscultation: normal bowel sounds and + abdominal wall ecchymosis (acorss lower abd,mostly in midline); + abdomen abnormal to inspection Percussion/Palpation: + abdomen tender (at site of hematoma) and abdomen soft Musculoskeletal: Extremities: extremities normal to inspection; no cyanosis and no clubbing Skin: no rashes and no erythema (no erythema or warmth around abd wall hematoma) Neurologic: moves all extremities and awake; no focal motor deficits Psychiatric: A+Ox3, euthymic affect Lymphatic: no lymphedema Results & Data Results & Data ([facility]) Vital Signs (Past 12 Hours) Vital Signs Temp Pulse Resp BP Pulse Ox 04/17/20 06:38 37.0 C 100 H 18 124/78 94 Laboratory Results 04/17/20 04/17/20 04/16/20 Range/Units 06:57 06:57 15:50 WBC 12.76 H 14.37 H (4.8-10.8) K/uL RBC 3.01 L 2.98 L (4.2-5.4) M/uL Hgb 8.7 L 8.6 L (12.0-16.0) g/dL Hct 28.8 L 28.3 L (37-47) % MCV 95.7 95.0 (80-100) fL MCH 28.9 28.9 (25-34) pg MCHC 30.2 L 30.4 L (32-36) g/dL RDW Std Deviation 56.6 H 55.2 H (36.4-46.3) fL RDW Coeff of Felicia 16.4 H 16.2 H (11.5-14.5) % Plt Count 372 371 (130-400) K/uL MPV 9.3 9.2 (7.4-10.4) fL Immature Gran % (Auto) 1.7 % Neut % (Auto) 72.9 % Lymph % (Auto) 15.5 % [place] % (Auto) 6.7 % Eos % (Auto) 3.0 % Baso % (Auto) 0.2 % Neut # (Auto) 9.29 H (1.4-6.5) K/uL Lymph # (Auto) 1.98 (1.2-3.4) K/uL [place] # (Auto) 0.86 H (0.11-0.59) K/uL Eos # (Auto) 0.38 (0-0.5) K/uL Baso # (Auto) 0.03 (0-0.2) K/uL Immature Gran # (Auto) 0.22 H (0.00-0.02) K/uL Absolute Nucleated RBC 0.52 H 0.40 H (0-0) K/uL Nucleated RBC % (auto) 4.0 2.8 % Polychromasia 1+ Sodium 135 L (136-145) mmol/L Potassium 3.7 (3.5-5.1) mmol/L Chloride 100 (98-107) mmol/L Carbon Dioxide 30 (21-32) mmol/L Anion Gap 6.0 (3-11) BUN 10 (7-18) mg/dl Creatinine 0.77 (0.6-1.2) mg/dl Est Cr Clr Drug Dosing 158.1 ml/min Est GFR ( Amer) 106.6 Est GFR (Non-Af Amer) 91.9 BUN/Creatinine Ratio 13.4 (10-20) Glucose 111 H (70-99) mg/dl Calcium 8.7 (8.5-10.1) mg/dl Magnesium 2.5 H (1.8-2.4) mg/dl PG Care Time/CCT Total # of Minutes Spent Total Time Spent with Patient: Total time spent is greater than 50% in coordination of care (as documented) at patient's floor/unit and/or counseling patient: Coding Level of Care Code 55433 Subseq Hosp Care Lvl 2 Diagnoses Rectus sheath hematoma S30.1XXA Supratherapeutic INR R79.1 Anemia D64.9 Severe persistent asthma, poorly-controlled J45.51 Asthma complication type: with acute exacerbation Obstructive sleep apnea of adult G47.33 GERD without esophagitis K21.9 Chronic pain G89.29 Anxiety F41.9 Insomnia G47.00 Edema R60.9 Constipation K59.00 DVT prophylaxis Z29.9 (1) Severe persistent asthma, poorly-controlled Asthma complication type: with acute exacerbation Qualified Code(s): J45.51 - Severe persistent asthma with (acute) exacerbation
[2020-04-17] MEDS: HYDROCODONE/ACETAMINOPHEN 10/325 TAB PO PRN ×2 (14:50→20:44)
[2020-04-17] MEDS: BACLOFEN 10 MG TAB PO SCH (20:44)
[2020-04-17] MEDS: CETIRIZINE HCL 10 MG TABLET PO SCH (20:44)
[2020-04-17] MEDS: MONTELUKAST SODIUM 10 MG TABLET PO SCH (20:45)
[2020-04-17] MEDS: ALPRAZolam 0.5 MG TABLET PO SCH (20:49)
[2020-04-18] MEDS: CEFAZOLIN 2000MG 2,000 MG/15 ML SYR IV SCH ×3 (01:00→16:38)
[2020-04-18] MEDS: OXYCODONE HCL IR 5 MG TAB (IMMEDIATE RELEASE) PO PRN ×4 (01:03→19:48)
[2020-04-18 06:36] LABS: Basophils # (auto) 0.06 K/uL (0-0.2); Basophils % (auto) 0.4 %; Eosinophils % (auto) 1.5 %; Hematocrit (blood only) 31.4 % (37-47); Hemoglobin 9.2 g/dL (12.0-16.0); Immature Granulocytes # (auto) 0.24 K/uL (0.00-0.02); Immature Granulocytes % (auto) 1.8 %; Lymphocytes # (auto) 2.08 K/uL (1.2-3.4); Lymphocytes % (auto) 15.2 %; Mean Corpuscular Hemoglobin 28.1 pg (25-34); Mean Corpuscular Hgb Conc 29.3 g/dL (32-36); Mean Platelet Volume 9.5 fL (7.4-10.4); Monocytes # (auto) 0.95 K/uL (0.11-0.59); Monocytes % (auto) 6.9 %; Neutrophils # (auto) 10.16 K/uL (1.4-6.5); Neutrophils % (auto) 74.2 %; Nucleated RBC # (auto) 0.89 K/uL (0-0); Nucleated RBC % (auto) 6.5 %; Platelet Count 408 K/uL (130-400); RDW Coefficient of Variation 16.5 % (11.5-14.5); RDW Standard Deviation 56.2 fL (36.4-46.3); Red Blood Count 3.27 M/uL (4.2-5.4); White Blood Count 13.69 K/uL (4.8-10.8)
[2020-04-18 06:53] LABS: BUN Creatinine Ratio 12.2 (10-20); Calcium 8.7 mg/dl (8.5-10.1); Creatinine Clr Calc Pharmacy 158.1 ml/min; Est GFR (African American) 106.6; Est GFR (Non-African American) 91.9; Potassium 3.9 mmol/L (3.5-5.1)
[2020-04-18 07:08] LABS: Polychromasia 1+
[2020-04-18] MEDS: MAGNESIUM OXIDE 400 MG TAB PO SCH ×2 (08:31→20:05)
[2020-04-18] MEDS: DOCUSATE SODIUM/SENNA 50/8.6MG TAB PO SCH (08:32)
[2020-04-18] MEDS: POTASSIUM CHLORIDE 20 MEQ TABCR PO SCH (08:32)
[2020-04-18] MEDS: predniSONE 20 MG TAB PO SCH (08:32)
[2020-04-18] MEDS: SPIRONOLACTONE 25 MG TAB PO SCH (08:32)
[2020-04-18] MEDS: FEXOFENADINE HCL 180 MG TAB PO SCH ×2 (08:32→20:05)
[2020-04-18] MEDS: UMECLIDINIUM BROMIDE 62.5MCG/BLISTER 7 PUFFS/INHALER INH SCH (08:33)
[2020-04-18] MEDS: BUMETANIDE 1 MG TAB PO SCH (08:33)
[2020-04-18] MEDS: FLUTICASONE/VILANTEROL 100/25MCG 14 PUFFS/INHALER INH SCH (08:33)
[2020-04-18] MEDS: FLUTICASONE PROPIONATE NA SPR 16 GM BTL NAE SCH (08:33)
[2020-04-18] MEDS: PANTOprazole 40 MG TAB PO SCH (08:33)
[2020-04-18] MEDS: POLYETHYLENE (MIRALAX) 17 GM PACK PO SCH ×2 (08:34→20:06)
[2020-04-18] MEDS: DICLOFENAC SOD 1% GEL 100 GM TUBE EXT SCH ×4 (08:34→20:06)
[2020-04-18] MEDS: ALBUT/IPRATROP 3MG/0.5MG NEB 3 ML VIAL NEB PRN (10:31)
[2020-04-18] MEDS: HYDROCODONE/ACETAMINOPHEN 10/325 TAB PO PRN (11:13)
[2020-04-18] MEDS: ALPRAZolam 0.5 MG TABLET PO PRN (11:13)
--- NOTE | 2020-04-18 12:24 | Hospitalist Progress Note ---
Date of Service April 18, 2020 Assessment & Plan (1) Rectus sheath hematoma: Rectus sheath hematoma due to anticoagulant therapy. Acute blood loss anemia. Suspect secondary to abd wall strain with trying to get out of her relciner with supratherapeutic INR. - Patient required 2 PRBCs on 04/10. -continues with pain requiring opioids, hgb stable now to improved at 9.2 - continue to Hold warfarin and NSAIDs. - Appreciate input from general surgery -> No surgical need at this time. - Ancef started on 04/13 by surgical team as they felt there was concern for mild cellulitis in the LLQ of the abdomen. With mild erythema at hematoma site but not severe today, continues with leukocytosis which may also be from chronic prednisone use. With fever isoalted on evening of 04/17 and could be from atelectasis. - Continue cefazolin for now and plan to convert to keflex on discharge. - continue Pain control -follow CBC (2) Supratherapeutic INR: INR up to 5.6 on admission. Pt has home INR machine and reports it was 3 just before she came in Question if home machine is accurate - Given Vit K; INR now 1.0 on 04/11. (3) Anemia: Acute blood loss anemia hgb baseline 12 just 2 weeks ago, dropped to 6.9 on admission from rectus sheath hematoma transfused 2 units PRBCs, continues to hold stable to improved at 9.2 -follow CBC (4) Severe persistent asthma, poorly-controlled: History of bronchial thermoplasty in 2014. Recently started dupilumab injections. - No current exacerbation. I feel current hypoxia and SOB related to m overload - Continue her usual regimen with prednisone 20 mg p.o. daily and hope to taper this down slowly over time -pt requests scheduled DuoNebs 4 times daily -changed today -continue Symbicort BID, & Spiriva BID or formulary equivalents (5) Obstructive sleep apnea of adult: Compliant with CPAP HS in the hospital. (6) GERD without esophagitis: - Switch omeprazole to pantoprazole as per hospital formulary. (7) Chronic pain: - Continue her usual [place] - Hold NSAIDs in setting of rectal sheath hematoma as above. - Baclofen HS. (8) Anxiety: - Continue her usual Xanax regimen. (9) Insomnia: - Continue her usual zolpidem HS. (10) Edema: chronic, worsening with blood transfusions and was not getting usual lasix reports lasix gives bad cramps in hands and feet Now much improved after starting Bumex, renal function stable, not getting cramps with Bumex and starting magnesium Weight is down from admission today but still up from discharge a few weeks ago Remains with hypoxia with minimal exertion -give Bumex 1mg IV x 1 now -continue bumex 1mg po daily -continue aldactone continue KCl 20meq po daily -added on Magnesium 400mg po bid for muscle cramps -continue to fluid restrict-she does this on her own (11) Constipation: was severe, now had a BM on 04/15 after enema, Co lytely prep Had another BM 04/16 and 04/17 -continue Miralax bid -continue senna/docusate added on magnesium as above which will also help (12) Acute respiratory failure with hypoxia: as above, with hypoxia with exertion requiring O2, not being documented in vitals -will get 2 step prior to dc -IV Bumex as above encouraged IS use-will d/w RN about making sure IS at bedside O2 as needed with exertion (13) Fever: as above, likely atelectasis hematoma looks better than previous, do not suspect from this continue Ancef watch for more fevers (14) DVT prophylaxis: Chemical anticoagulation contraindicated due to hematoma and acute blood loss anemia . - Patient refuses SCDs due to breakdown of skin on chronic steroids. - Patient is ambulating some in the room and reports doing leg exercises to prevent DVT. With a h/o DVT/PE in the past--> consider restarting coumadin after discharge given morbid obesity and sedentary lifestyle but perhaps at lower parameter for INR and make sure home INR machine is accurate Dispo-continued stay but hopeful for discharge to home in next 1-2 days Admission and Anticipated Discharge Date Admission Date: April 10, 2020 Subjective Feeling more SOB today especially with minimal exertion. She notes while her weight is down 13 lbs since admission, she is still up 9 lbs from previous discharge a few weeks ago. SHe is haivng to use NC O2 to recover just from walking back from [place] and POx in low 80s. Pain in abdomen is improving. Had a fever las tnight but none since then. Is anxious baout her low O2 levels but is now accepting of having to wear O2 if necessary when she goes home. She never received the IS ordered for her yesterday Review of Systems Review of Systems: All systems reviewed & are unremarkable except as noted in HPI & below Physical Exam Constitutional: WD/WN, vitals as above + morbidly obese Eyes: + anicteric sclerae Neck: trachea midline, no thyromegaly Respiratory: normal respiratory effort; no cough Auscultation: + diminished lung sounds (throughout) and + wheezes (exp wheezes in upper airways with forced expiration); no rales and no rhonchi Cardiovascular: Rate/Rhythm: regular rate and regular rhythm Heart Sounds: no murmur Extremities: + edema (trace edema to knees bilat, hands with trace+ pitting edema bilat-impr) Chest (Breasts): Chest: normal inspection of chest Gastrointestinal (Abdomen): Inspection/Auscultation: normal bowel sounds and + abdominal wall ecchymosis (acorss lower abd,mostly in midline,improved); + abdomen abnormal to inspection Percussion/Palpation: + abdomen tender (at site of hematoma) and abdomen soft Musculoskeletal: Extremities: extremities normal to inspection; no cyanosis and no clubbing Skin: + erythema (very mild erythema with lower abd wall hematoma ); no rashes Neurologic: moves all extremities and awake; no focal motor deficits Psychiatric: Orientation: alert and oriented x 3 Affect: + anxious affect Mood: + anxious mood Results & Data Results & Data ([facility]) Vital Signs (Past 12 Hours) Vital Signs Temp Pulse Resp BP Pulse Ox 04/18/20 10:33 96 H 18 96 04/18/20 07:38 37.2 C 69 18 107/72 97 Laboratory Results 04/18/20 04/18/20 Range/Units 05:57 05:57 WBC 13.69 H (4.8-10.8) K/uL RBC 3.27 L (4.2-5.4) M/uL Hgb 9.2 L (12.0-16.0) g/dL Hct 31.4 L (37-47) % MCV 96.0 (80-100) fL MCH 28.1 (25-34) pg MCHC 29.3 L (32-36) g/dL RDW Std Deviation 56.2 H (36.4-46.3) fL RDW Coeff of Felicia 16.5 H (11.5-14.5) % Plt Count 408 H (130-400) K/uL MPV 9.5 (7.4-10.4) fL Immature Gran % (Auto) 1.8 % Neut % (Auto) 74.2 % Lymph % (Auto) 15.2 % [place] % (Auto) 6.9 % Eos % (Auto) 1.5 % Baso % (Auto) 0.4 % Neut # (Auto) 10.16 H (1.4-6.5) K/uL Lymph # (Auto) 2.08 (1.2-3.4) K/uL [place] # (Auto) 0.95 H (0.11-0.59) K/uL Eos # (Auto) 0.20 (0-0.5) K/uL Baso # (Auto) 0.06 (0-0.2) K/uL Immature Gran # (Auto) 0.24 H (0.00-0.02) K/uL Absolute Nucleated RBC 0.89 H (0-0) K/uL Nucleated RBC % (auto) 6.5 % Polychromasia 1+ Sodium 137 (136-145) mmol/L Potassium 3.9 (3.5-5.1) mmol/L Chloride 100 (98-107) mmol/L Carbon Dioxide 30 (21-32) mmol/L Anion Gap 7.0 (3-11) BUN 9 (7-18) mg/dl Creatinine 0.77 (0.6-1.2) mg/dl Est Cr Clr Drug Dosing 158.1 ml/min Est GFR ( Amer) 106.6 Est GFR (Non-Af Amer) 91.9 BUN/Creatinine Ratio 12.2 (10-20) Glucose 114 H (70-99) mg/dl Calcium 8.7 (8.5-10.1) mg/dl PG Care Time/CCT Total # of Minutes Spent Total Time Spent with Patient: Total time spent is greater than 50% in coordination of care (as documented) at patient's floor/unit and/or counseling patient: Coding Level of Care Code 89089 Subseq Hosp Care Lvl 3 Diagnoses Rectus sheath hematoma S30.1XXA Supratherapeutic INR R79.1 Anemia D64.9 Severe persistent asthma, poorly-controlled J45.51 Asthma complication type: with acute exacerbation Obstructive sleep apnea of adult G47.33 GERD without esophagitis K21.9 Chronic pain G89.29 Anxiety F41.9 Insomnia G47.00 Edema R60.9 Constipation K59.00 Acute respiratory failure with hypoxia J96.01 Fever R50.9 DVT prophylaxis Z29.9 (1) Severe persistent asthma, poorly-controlled Asthma complication type: with acute exacerbation Qualified Code(s): J45.51 - Severe persistent asthma with (acute) exacerbation
[2020-04-18] MEDS ORDERED: BUMETANIDE 1 MG in SYRINGE 0 ML IV ONE (12:30)
[2020-04-18] MEDS: ALBUT/IPRATROP 3MG/0.5MG NEB 3 ML VIAL NEB SCH ×2 (15:33→19:16)
[2020-04-18] MEDS: MONTELUKAST SODIUM 10 MG TABLET PO SCH (20:05)
[2020-04-18] MEDS: BACLOFEN 10 MG TAB PO SCH (20:05)
[2020-04-18] MEDS: CETIRIZINE HCL 10 MG TABLET PO SCH (20:05)
[2020-04-18] MEDS: ALPRAZolam 0.5 MG TABLET PO SCH (20:10)
[2020-04-18] MEDS: ZOLPIDEM TARTRATE 10 MG TAB PO PRN (21:52)
[2020-04-19] MEDS: CEFAZOLIN 2000MG 2,000 MG/15 ML SYR IV SCH ×3 (01:18→16:51)
[2020-04-19] MEDS: OXYCODONE HCL IR 5 MG TAB (IMMEDIATE RELEASE) PO PRN ×4 (01:25→23:03)
[2020-04-19] MEDS: ALBUT/IPRATROP 3MG/0.5MG NEB 3 ML VIAL NEB SCH ×4 (07:15→19:35)
[2020-04-19] MEDS: predniSONE 20 MG TAB PO SCH (08:33)
[2020-04-19] MEDS: PANTOprazole 40 MG TAB PO SCH (08:33)
[2020-04-19] MEDS: FLUTICASONE PROPIONATE NA SPR 16 GM BTL NAE SCH (08:33)
[2020-04-19] MEDS: POTASSIUM CHLORIDE 20 MEQ TABCR PO SCH (08:33)
[2020-04-19] MEDS: SPIRONOLACTONE 25 MG TAB PO SCH (08:33)
[2020-04-19] MEDS: FEXOFENADINE HCL 180 MG TAB PO SCH ×2 (08:33→20:39)
[2020-04-19] MEDS: DOCUSATE SODIUM/SENNA 50/8.6MG TAB PO SCH (08:33)
[2020-04-19] MEDS: BUMETANIDE 1 MG TAB PO SCH (08:33)
[2020-04-19] MEDS: MAGNESIUM OXIDE 400 MG TAB PO SCH ×2 (08:33→20:38)
[2020-04-19] MEDS: UMECLIDINIUM BROMIDE 62.5MCG/BLISTER 7 PUFFS/INHALER INH SCH (08:34)
[2020-04-19] MEDS: FLUTICASONE/VILANTEROL 100/25MCG 14 PUFFS/INHALER INH SCH (08:34)
[2020-04-19] MEDS: POLYETHYLENE (MIRALAX) 17 GM PACK PO SCH ×2 (08:34→20:39)
[2020-04-19] MEDS: DICLOFENAC SOD 1% GEL 100 GM TUBE EXT SCH ×4 (08:34→20:39)
[2020-04-19] MEDS ORDERED: BUMETANIDE 1 MG TAB PO ONE (11:28)
--- NOTE | 2020-04-19 11:34 | Hospitalist Progress Note ---
Date of Service April 19, 2020 Assessment & Plan (1) Rectus sheath hematoma: Presented with rectus sheath hematoma due to anticoagulant therapy. Acute blood loss anemia. Suspect secondary to abd wall strain with trying to get out of her recliner with supratherapeutic INR. - Patient required 2 PRBCs on 04/10. -continues with pain requiring opioids although now much improved, hgb stable now to improved at 9.7 -Her warfarin was reversed upon admission and had been held ever since. Now with acute DVT/PE as below and will be restarted - Appreciate input from general surgery -> No surgical need at this time. - Ancef started on 04/13 by surgical team as they felt there was concern for mild cellulitis in the LLQ of the abdomen. Cellulitis is now completely resolved and she will complete 7 days of Ancef on 04/20 - continue Pain control with oxycodone and/or hydrocodone as needed -follow CBC especially now that is back on heparin drip and Coumadin (2) Pulmonary emboli: Hypoxia significantly worsened on the evening of 04/18 and 04/19 down to 75% on room air requiring O2 and with acute respiratory failure with hypoxia CT angiogram of the chest was performed on 04/19 which showed multiple bilateral segmental and subsegmental acute PEs Bilateral lower extremity venous Dopplers positive only for left peroneal vein DVT Start heparin standard dosing without bolus given rectus sheath hematoma and recent major bleeding -Follow CBC closely and watch for bleeding at the site of the rectus sheath hematoma again -Start Coumadin 10 mg daily-of note, her normal dosing is 15 mg on Tuesdays and and 10 mg all other days -Follow INR and CBC in the morning -Will now require indefinite lifelong anticoagulation as this is her second occurrence of DVT/PE -If she developed recurrent bleeding, would be a candidate for IVC filter -Echocardiogram limited was rechecked to look for significant right heart strain and there was none She is not hypotensive She is not a candidate for TPA as she had a recent major bleed All of this was discussed with the patient at length with her present and she is agreeable to treatment (3) Acute DVT (deep venous thrombosis): Left peroneal vein as above (4) Supratherapeutic INR: INR up to 5.6 on admission. Pt has home INR machine and reports it was 3 just before she came in Question if home machine is accurate - Given Vit K; INR now 1.0 on 04/11. Now starting back on Coumadin as above for recurrent acute DVT/PE (5) Anemia: Acute blood loss anemia hgb baseline 12 just 2 weeks ago, dropped to 6.9 on admission from rectus sheath hematoma transfused 2 units PRBCs early in the course of admission, now hemoglobin continues to improve to 9.7 -follow CBC in the morning as above especially in the setting of restarting anticoagulation (6) Severe persistent asthma, poorly-controlled: History of bronchial thermoplasty in 2015. Recently started dupilumab injections. - No current exacerbation. I feel current hypoxia and SOB related to m overload - Continue her usual regimen with prednisone 20 mg p.o. daily and hope to taper this down slowly over time -pt requests scheduled DuoNebs 4 times daily -changed today -continue Symbicort BID, & Spiriva BID or formulary equivalents (7) Obstructive sleep apnea of adult: Compliant with CPAP HS in the hospital, however she is still not completed a formal sleep study as an outpatient and does not have a CPAP at home. -Will need overnight pulse oximetry test prior to discharge to qualify for home O2 -Get formal sleep study as an outpatient (8) GERD without esophagitis: - Switch omeprazole to pantoprazole as per hospital formulary. (9) Chronic pain: - Continue her usual [place] - Hold NSAIDs in setting of rectal sheath hematoma as above. - Baclofen HS. (10) Anxiety: - Continue her usual Xanax regimen. (11) Insomnia: - Continue her usual zolpidem HS. (12) Edema: chronic, was worsening with blood transfusions and was not getting usual lasix after admission reports lasix gives bad cramps in hands and feet Now much improved after starting Bumex, renal function stable, not getting cramps with Bumex and starting magnesium Weight is down now significantly from admission after starting Bumex Remains with hypoxia with minimal exertion which is also likely secondary to PEs as above -continue bumex and increase to 2mg po daily -continue aldactone continue KCl 20meq po daily -added on Magnesium 400mg po bid for muscle cramps -continue to fluid restrict-she does this on her own (13) Constipation: was severe, now had a BM on 04/15 after enema, Co lytely prep Continues to have once to twice daily bowel movements -continue Miralax bid -continue senna/docusate added on magnesium as above which will also help (14) Acute respiratory failure with hypoxia: as above, with hypoxia with exertion requiring O2, and now hypoxia at rest as above to 75% on the evening of 04/18 Had desaturation to 88% with exertion on the morning of 04/19 Then found to have bilateral PEs as above -will need to repeat two-step walk test again prior to discharge as she would not likely be going home within 48 hours of the last 1 on 04/19 -Continue diuresis as above with Bumex -Continue incentive spirometry -Will also need overnight pulse oximetry as above to qualify for nocturnal O2 (15) Fever: Had 1 fever on the evening of 04/17, was initially thought to be atelectasis versus from cellulitis on the abdomen at hematoma site, but in hindsight was probably secondary to development of DVT No further fever since that time Completing course of Ancef for cellulitis which is much improved on 04/20 (16) DVT prophylaxis: Previously, chemical anticoagulation contraindicated due to hematoma and acute blood loss anemia - Patient had refused SCDs due to breakdown of skin on chronic steroids, and now contraindicated due to DVT. Now back on heparin drip and restarting Coumadin as above for acute DVT/PE Disposition-continued stay Admission and Anticipated Discharge Date Admission Date: April 10, 2020 Subjective Patient continues to struggle with hypoxia and was down to 75% on her pulse ox last night which came up with applying oxygen. She reports that her feet were "mottled" last night as well with this low pulse ox. She could barely walk 25 feet with the respiratory therapist today down the tysno before her pulse ox dropped to 88% but remained 90 to 91% on room air at rest. She is not coughing and denies any chest pain. She does note some pain in the left calf that started last night. Decision was made to proceed with CT angiogram of the chest which then did show multiple segmental and subsegmental bilateral PEs. I discussed the findings with her and given that her hemoglobin has remained stable to improved over many days and abdominal pain is improving, no further bleeding from rectus sheath hematoma and will proceed with heparin drip for PEs and restart her on Coumadin. Review of Systems Review of Systems: All systems reviewed & are unremarkable except as noted in HPI & below Physical Exam Constitutional: WD/WN, vitals as above + morbidly obese Eyes: + anicteric sclerae Neck: trachea midline, no thyromegaly Respiratory: normal respiratory effort; no cough Auscultation: + diminished lung sounds (throughout) and + wheezes (exp wheezes in upper airways with forced expiration); no rales and no rhonchi Cardiovascular: Rate/Rhythm: regular rate and regular rhythm Heart Sounds: no murmur Extremities: + edema (trace edema to knees bilat, hands with trace+ pitting edema bilat-impr) Chest (Breasts): Chest: normal inspection of chest Gastrointestinal (Abdomen): Inspection/Auscultation: normal bowel sounds and + abdominal wall ecchymosis (acorss lower abd,mostly in midline,improved); + abdomen abnormal to inspection Percussion/Palpation: + abdomen tender (at site of hematoma) and abdomen soft Musculoskeletal: Extremities: extremities normal to inspection; no cyanosis and no clubbing Skin: no erythema (Erythema resolved on abdomen) Neurologic: moves all extremities and awake; no focal motor deficits Psychiatric: Orientation: alert and oriented x 3 Affect: + anxious affect Mood: + anxious mood Lymphatic: no lymphedema Results & Data Results & Data ([facility]) Vital Signs (Past 12 Hours) Vital Signs Temp Pulse Pulse Pulse Pulse Pulse Resp 04/19/20 11:09 94 H 16 04/19/20 10:33 100 H 115 H 88 68 04/19/20 07:16 88 20 04/19/20 07:00 36.5 C 86 20 Resp Resp Resp Resp BP Pulse Ox Pulse Ox 04/19/20 11:09 92 04/19/20 10:33 22 28 H 22 18 93 04/19/20 07:16 97 04/19/20 07:00 126/73 98 Pulse Ox Pulse Ox Pulse Ox 04/19/20 11:09 04/19/20 10:33 88 L 90 91 04/19/20 07:16 04/19/20 07:00 Laboratory Results 04/19/20 04/19/20 04/19/20 Range/Units 20:29 13:03 13:03 WBC (4.8-10.8) K/uL RBC (4.2-5.4) M/uL Hgb (12.0-16.0) g/dL Hct (37-47) % MCV (80-100) fL MCH (25-34) pg MCHC (32-36) g/dL RDW Std Deviation (36.4-46.3) fL RDW Coeff of Felicia (11.5-14.5) % Plt Count (130-400) K/uL MPV (7.4-10.4) fL Immature Gran % (Auto) % Neut % (Auto) % Lymph % (Auto) % Blount % (Auto) % Eos % (Auto) % Baso % (Auto) % Neut # (Auto) (1.4-6.5) K/uL Lymph # (Auto) (1.2-3.4) K/uL Blount # (Auto) (0.11-0.59) K/uL Eos # (Auto) (0-0.5) K/uL Baso # (Auto) (0-0.2) K/uL Immature Gran # (Auto) (0.00-0.02) K/uL Absolute Nucleated RBC (0-0) K/uL Nucleated RBC % (auto) % Polychromasia PT 11.2 (9.0-12.0) Seconds INR 1.1 (0.9-1.1) APTT 27.1 22.3 (21.0-31.0) Seconds PTT Ratio 1.0 0.8 Sodium 135 L (136-145) mmol/L Potassium 4.3 (3.5-5.1) mmol/L Chloride 99 (98-107) mmol/L Carbon Dioxide 29 (21-32) mmol/L Anion Gap 7.0 (3-11) BUN 9 (7-18) mg/dl Creatinine 0.95 (0.6-1.2) mg/dl Est Cr Clr Drug Dosing 124.1 ml/min Est GFR ( Amer) 82.7 Est GFR (Non-Af Amer) 71.3 BUN/Creatinine Ratio 9.6 L (10-20) Glucose 178 H (70-99) mg/dl Calcium 9.1 (8.5-10.1) mg/dl 04/19/20 Range/Units 13:03 WBC 17.00 H (4.8-10.8) K/uL RBC 3.35 L (4.2-5.4) M/uL Hgb 9.7 L (12.0-16.0) g/dL Hct 32.1 L (37-47) % MCV 95.8 (80-100) fL MCH 29.0 (25-34) pg MCHC 30.2 L (32-36) g/dL RDW Std Deviation 56.5 H (36.4-46.3) fL RDW Coeff of Felicia 16.8 H (11.5-14.5) % Plt Count 357 (130-400) K/uL MPV 9.8 (7.4-10.4) fL Immature Gran % (Auto) 1.9 % Neut % (Auto) 90.4 % Lymph % (Auto) 4.4 % Blount % (Auto) 2.8 % Eos % (Auto) 0.3 % Baso % (Auto) 0.2 % Neut # (Auto) 15.37 H (1.4-6.5) K/uL Lymph # (Auto) 0.75 L (1.2-3.4) K/uL Blount # (Auto) 0.48 (0.11-0.59) K/uL Eos # (Auto) 0.05 (0-0.5) K/uL Baso # (Auto) 0.03 (0-0.2) K/uL Immature Gran # (Auto) 0.32 H (0.00-0.02) K/uL Absolute Nucleated RBC 0.53 H (0-0) K/uL Nucleated RBC % (auto) 3.1 % Polychromasia 1+ PT (9.0-12.0) Seconds INR (0.9-1.1) APTT (21.0-31.0) Seconds PTT Ratio Sodium (136-145) mmol/L Potassium (3.5-5.1) mmol/L Chloride (98-107) mmol/L Carbon Dioxide (21-32) mmol/L Anion Gap (3-11) BUN (7-18) mg/dl Creatinine (0.6-1.2) mg/dl Est Cr Clr Drug Dosing ml/min Est GFR ( Amer) Est GFR (Non-Af Amer) BUN/Creatinine Ratio (10-20) Glucose (70-99) mg/dl Calcium (8.5-10.1) mg/dl Diagnostic Findings CT angiogram chest: IMPRESSION: 1. The examination is degraded by suboptimal contrast opacification of the pulmonary arteries. 2. Segmental and subsegmental filling defects are identified within the upper and lower lobe pulmonary arteries bilaterally. This is highly concerning for bilateral pulmonary embolus. 3. There is no airspace consolidation or pleural effusion. Venous Doppler bilateral lower extremities: Impression There is deep venous thrombosis identified in the left lower extremity within the peroneal veins Limited echocardiogram-technically limited, LV function normal, RV function normal, RVSP elevated at 30-40 mmHg PG Care Time/CCT Total # of Minutes Spent Total Time Spent with Patient: Total time spent is greater than 50% in coordination of care (as documented) at patient's floor/unit and/or counseling patient: Coding Level of Care Code 68162 Subseq Hosp Care Lvl 3 Diagnoses Rectus sheath hematoma S30.1XXA Pulmonary emboli I26.99 Acute DVT (deep venous thrombosis) I82.409 Supratherapeutic INR R79.1 Anemia D64.9 Severe persistent asthma, poorly-controlled J45.51 Asthma complication type: with acute exacerbation Obstructive sleep apnea of adult G47.33 GERD without esophagitis K21.9 Chronic pain G89.29 Anxiety F41.9 Insomnia G47.00 Edema R60.9 Constipation K59.00 Acute respiratory failure with hypoxia J96.01 Fever R50.9 DVT prophylaxis Z29.9 (1) Severe persistent asthma, poorly-controlled Asthma complication type: with acute exacerbation Qualified Code(s): J45.51 - Severe persistent asthma with (acute) exacerbation
[2020-04-19] MEDS ORDERED: OPTIRAY 320 125ml IV ONE (12:06)
[2020-04-19] MEDS: HYDROCODONE/ACETAMINOPHEN 10/325 TAB PO PRN ×2 (12:22→20:37)
--- NOTE | 2020-04-19 12:34 | CT Scan Report ---
CT ANGIOGRAM OF THE CHEST CLINICAL HISTORY: Dyspnea. COMPARISON STUDY: Chest CT scans dated 03/18/2020 and 10/21/2017. TECHNIQUE: Following the IV administration of 118 cc of Optiray 320, CT angiogram of the chest was pe rformed from the upper abdomen to the thoracic inlet utilizing the pulmonary embolus protocol. Images are reviewed in the axial, sagittal, and coronal planes. 3-D MIPS images are created and assessed. I V contrast was administered without complication. A dose lowering technique was utilized adhering to the principles of ALARA. There is suboptimal contrast opacification of the pulmonary arteries. CT DOSE: 1118.44 mGy.cm FINDINGS: Thyroid: Imaged portions of the thyroid gland are normal in size and attenuation. Thoracic aorta: The thoracic aorta is normal in caliber and demonstrates bovine variant arch anatomy. No dissection is seen. Pulmonary vasculature: There is suboptimal opacification of the pulmonary arteries. The pulmonary shiela nk is normal in caliber. The main pulmonary arteries are clear. Are numerous filling defects suggeste d within the segmental and subsegmental pulmonary arteries bilaterally. This is highly concerning for bilateral pulmonary embolus.. Heart: The heart is normal in size and without pericardial effusion. Lungs and pleural spaces: Evaluation of the lung parenchyma is degraded by motion artifact. No airspa ce consolidation or pleural effusion is identified. Foci of scarring/atelectasis are present at the l ruddy bases. The trachea and central airways are clear. There are scattered calcified granulomas. Mediastinum: There is no mediastinal lymphadenopathy. Emperatriz: Clear. Axillae: There is no axillary lymphadenopathy. Upper abdomen: Pneumobilia is noted. Partially visualized upper abdominal viscera is otherwise grossl y unremarkable. Skeletal structures: No lytic or blastic bony lesions are seen. IMPRESSION: 1. The examination is degraded by suboptimal contrast opacification of the pulmonary arteries. 2. Segmental and subsegmental filling defects are identified within the upper and lower lobe pulmonar y arteries bilaterally. This is highly concerning for bilateral pulmonary embolus. 3. There is no airspace consolidation or pleural effusion. 4. Additional findings as above. ACT 112: Negative or not required by law. Electronically signed by: Arias Montenegro M.D. 04/19/2020 12:32 PM
[2020-04-19] MEDS ORDERED: Heparin IV Standard *NO* Bolus IV SCH (12:45)
[2020-04-19] MEDS: ALPRAZolam 0.5 MG TABLET PO PRN (13:08)
[2020-04-19 13:17] LABS: Basophils # (auto) 0.03 K/uL (0-0.2); Basophils % (auto) 0.2 %; Eosinophils # (auto) 0.05 K/uL (0-0.5); Eosinophils % (auto) 0.3 %; Hematocrit (blood only) 32.1 % (37-47); Hemoglobin 9.7 g/dL (12.0-16.0); Immature Granulocytes # (auto) 0.32 K/uL (0.00-0.02); Immature Granulocytes % (auto) 1.9 %; Lymphocytes # (auto) 0.75 K/uL (1.2-3.4); Lymphocytes % (auto) 4.4 %; Mean Corpuscular Hgb Conc 30.2 g/dL (32-36); Mean Corpuscular Volume 95.8 fL (80-100); Mean Platelet Volume 9.8 fL (7.4-10.4); Monocytes # (auto) 0.48 K/uL (0.11-0.59); Monocytes % (auto) 2.8 %; Neutrophils # (auto) 15.37 K/uL (1.4-6.5); Neutrophils % (auto) 90.4 %; Nucleated RBC # (auto) 0.53 K/uL (0-0); Nucleated RBC % (auto) 3.1 %; Platelet Count 357 K/uL (130-400); RDW Coefficient of Variation 16.8 % (11.5-14.5); RDW Standard Deviation 56.5 fL (36.4-46.3); Red Blood Count 3.35 M/uL (4.2-5.4)
[2020-04-19] MEDS: HEPARIN SODIUM/DEXTROSE 25,000 UNITS/500 ML BAG IV SCH (13:20)
[2020-04-19 13:28] LABS: INR 1.1 (0.9-1.1); Partial Thromboplastin Ratio 0.8; Partial Thromboplastin Time 22.3 Seconds (21.0-31.0); Prothrombin Time 11.2 Seconds (9.0-12.0)
[2020-04-19 13:36] LABS: Polychromasia 1+
[2020-04-19 13:42] LABS: BUN Creatinine Ratio 9.6 (10-20); Calcium 9.1 mg/dl (8.5-10.1); Creatinine Clr Calc Pharmacy 124.1 ml/min; Est GFR (African American) 82.7; Est GFR (Non-African American) 71.3; Potassium 4.3 mmol/L (3.5-5.1)
--- NOTE | 2020-04-19 15:44 | Ultrasound Report ---
ULTRASOUND BILATERAL LOWER EXTREMITY VENOUS CLINICAL HISTORY: Pulmonary embolus COMPARISON STUDY: Bilateral lower extremity venous ultrasound dated 05/28/2015. TECHNIQUE: Real-time, grayscale, and color Doppler sonography of the deep veins of the right and left lower extremity was performed from the inguinal crease to the calf. Compression and augmentation wer e utilized. FINDINGS: Right lower extremity: There is no sonographic evidence of deep venous thrombosis identified in the r ight lower extremity. The common femoral, superficial femoral, and popliteal veins are patent and nor chastity compressible. The greater saphenous vein and the profunda femoris vein at the junction with the common femoral vein are clear. The visualized calf veins are patent. Left lower extremity: There is deep venous thrombosis in the left lower extremity within the peroneal veins. Remaining calf vessels are patent. No above knee deep venous thrombosis is seen. The common f emoral, superficial femoral, and popliteal veins are patent and normally compressible. The greater sa phenous vein and the profunda femoris vein at the junction with the common femoral vein are clear. Th e visualized calf veins are patent. IMPRESSION: 1. There is deep venous thrombosis identified in the left calf as above. 2. There is no sonographic evidence of deep venous thrombosis identified in the right lower extremity . ACT 112: Negative or not required by law. Electronically signed by: Arias Montenegro M.D. 04/19/2020 3:43 PM
--- NOTE | 2020-04-19 17:40 | XCELERA ---
[id number]
[2020-04-19] MEDS ORDERED: WARFARIN SOD 10 MG TAB PO ONE (18:36)
[2020-04-19] MEDS: BACLOFEN 10 MG TAB PO SCH (20:38)
[2020-04-19] MEDS: CETIRIZINE HCL 10 MG TABLET PO SCH (20:38)
[2020-04-19] MEDS: MONTELUKAST SODIUM 10 MG TABLET PO SCH (20:38)
[2020-04-19] MEDS: ALPRAZolam 0.5 MG TABLET PO SCH (20:39)
[2020-04-19 20:51] LABS: Partial Thromboplastin Time 27.1 Seconds (21.0-31.0)
[2020-04-19] MEDS ORDERED: Nursing to Pharmacy Communication SCH (21:45)
[2020-04-19] MEDS ORDERED: HEPARIN IV BOLUS 9,000 UNITS in SYRINGE 0 ML IV ONE (21:45)
[2020-04-19] MEDS: ZOLPIDEM TARTRATE 10 MG TAB PO PRN (23:03)
[2020-04-20] MEDS: CEFAZOLIN 2000MG 2,000 MG/15 ML SYR IV SCH (00:01)
[2020-04-20] MEDS: HEPARIN SODIUM/DEXTROSE 25,000 UNITS/500 ML BAG IV SCH ×5 (01:18→23:30)
[2020-04-20 04:54] LABS: Basophils # (auto) 0.04 K/uL (0-0.2); Basophils % (auto) 0.3 %; Eosinophils # (auto) 0.17 K/uL (0-0.5); Eosinophils % (auto) 1.2 %; Hematocrit (blood only) 28.5 % (37-47); Hemoglobin 8.7 g/dL (12.0-16.0); Immature Granulocytes % (auto) 2.1 %; Lymphocytes # (auto) 2.79 K/uL (1.2-3.4); Lymphocytes % (auto) 19.3 %; Mean Corpuscular Hemoglobin 28.9 pg (25-34); Mean Corpuscular Hgb Conc 30.5 g/dL (32-36); Mean Corpuscular Volume 94.7 fL (80-100); Mean Platelet Volume 9.6 fL (7.4-10.4); Monocytes # (auto) 0.62 K/uL (0.11-0.59); Monocytes % (auto) 4.3 %; Neutrophils # (auto) 10.53 K/uL (1.4-6.5); Neutrophils % (auto) 72.8 %; Nucleated RBC # (auto) 0.41 K/uL (0-0); Nucleated RBC % (auto) 2.8 %; Platelet Count 333 K/uL (130-400); RDW Coefficient of Variation 16.7 % (11.5-14.5); RDW Standard Deviation 56.2 fL (36.4-46.3); Red Blood Count 3.01 M/uL (4.2-5.4); White Blood Count 14.45 K/uL (4.8-10.8)
[2020-04-20 04:56] LABS: BUN Creatinine Ratio 12.7 (10-20); Calcium 8.7 mg/dl (8.5-10.1); Creatinine Clr Calc Pharmacy 161.4 ml/min; Est GFR (African American) 113.7; Est GFR (Non-African American) 98.1; Magnesium 2.8 mg/dl (1.8-2.4); Potassium 3.9 mmol/L (3.5-5.1)
[2020-04-20 05:14] LABS: INR 1.1 (0.9-1.1); Partial Thromboplastin Ratio 3.1; Prothrombin Time 11.5 Seconds (9.0-12.0)
[2020-04-20 05:20] LABS: Partial Thromboplastin Time 87.4 Seconds (21.0-31.0)
[2020-04-20] MEDS: OXYCODONE HCL IR 5 MG TAB (IMMEDIATE RELEASE) PO PRN ×4 (05:59→20:55)
[2020-04-20 06:42] LABS: Polychromasia 1+
[2020-04-20] MEDS: ALBUT/IPRATROP 3MG/0.5MG NEB 3 ML VIAL NEB SCH ×4 (06:59→19:17)
[2020-04-20] MEDS: SPIRONOLACTONE 25 MG TAB PO SCH (09:15)
[2020-04-20] MEDS: FEXOFENADINE HCL 180 MG TAB PO SCH ×2 (09:15→20:53)
[2020-04-20] MEDS: FLUTICASONE/VILANTEROL 100/25MCG 14 PUFFS/INHALER INH SCH (09:15)
[2020-04-20] MEDS: BUMETANIDE 1 MG TAB PO SCH (09:16)
[2020-04-20] MEDS: FLUTICASONE PROPIONATE NA SPR 16 GM BTL NAE SCH (09:16)
[2020-04-20] MEDS: UMECLIDINIUM BROMIDE 62.5MCG/BLISTER 7 PUFFS/INHALER INH SCH (09:17)
[2020-04-20] MEDS: POTASSIUM CHLORIDE 20 MEQ TABCR PO SCH (09:17)
[2020-04-20] MEDS: MAGNESIUM OXIDE 400 MG TAB PO SCH ×2 (09:18→20:53)
[2020-04-20] MEDS: POLYETHYLENE (MIRALAX) 17 GM PACK PO SCH ×2 (09:18→20:54)
[2020-04-20] MEDS: predniSONE 20 MG TAB PO SCH (09:18)
[2020-04-20] MEDS: PANTOprazole 40 MG TAB PO SCH (09:18)
[2020-04-20] MEDS: DICLOFENAC SOD 1% GEL 100 GM TUBE EXT SCH ×5 (09:19→21:06)
[2020-04-20] MEDS: DOCUSATE SODIUM/SENNA 50/8.6MG TAB PO SCH (09:19)
--- NOTE | 2020-04-20 10:52 | Hospitalist Progress Note ---
Date of Service April 20, 2020 Assessment & Plan (1) Rectus sheath hematoma: Presented with rectus sheath hematoma due to anticoagulant therapy. Acute blood loss anemia. Suspect secondary to abd wall strain with trying to get out of her recliner with supratherapeutic INR. - Patient required 2 PRBCs on 04/10. -continues with pain requiring opioids although now much improved, hgb stable but slightly lower today at 8.7 -Her warfarin was reversed upon admission and was held. Now with acute DVT/PE as below and has been restarted - Appreciate input from general surgery -> No surgical need at this time. - Ancef started on 04/13 by surgical team as they felt there was concern for mild cellulitis in the LLQ of the abdomen. Cellulitis is now completely resolved and she will complete 7 days of Ancef on 04/20 - continue Pain control with oxycodone and/or hydrocodone as needed -follow CBC especially now that is back on heparin drip and Coumadin (2) Pulmonary emboli: Hypoxia significantly worsened on the evening of 04/18 and 04/19 down to 75% on room air requiring O2 and with acute respiratory failure with hypoxia CT angiogram of the chest was performed on 04/19 which showed multiple bilateral segmental and subsegmental acute PEs Bilateral lower extremity venous Dopplers positive only for left peroneal vein DVT -continue heparin gtt, caution with rectus sheath hematoma and recent major bleeding -Follow CBC closely and watch for bleeding at the site of the rectus sheath hematoma again-hgb slight drop today but clinically improved -Started Coumadin 10 mg daily on 04/19-of note, her normal dosing is 15 mg on Tuesdays and and 10 mg all other days -Follow INR and CBC in the morning-INR 1.1 today -Will now require indefinite lifelong anticoagulation as this is her second occurrence of DVT/PE -If she developed recurrent bleeding, would be a candidate for IVC filter -Echocardiogram limited was rechecked to look for significant right heart strain and there was none She is not hypotensive She is not a candidate for TPA as she had a recent major bleed All of this was discussed with the patient at length with her present and she is agreeable to treatment (3) Acute DVT (deep venous thrombosis): Left peroneal vein as above (4) Supratherapeutic INR: INR up to 5.6 on admission. Pt has home INR machine and reports it was 3 just before she came in Question if home machine is accurate - Given Vit K initially for bleeding Now starting back on Coumadin as above for recurrent acute DVT/PE (5) Anemia: Acute blood loss anemia hgb baseline 12 just 2 weeks ago, dropped to 6.9 on admission from rectus sheath hematoma transfused 2 units PRBCs early in the course of admission, now hemoglobin 8.7 and stable -follow CBC in the morning as above especially in the setting of restarting anticoagulation (6) Severe persistent asthma, poorly-controlled: History of bronchial thermoplasty in 2015. Recently started dupilumab injections. - No current exacerbation. I feel current hypoxia and SOB related to m overload - Continue her usual regimen with prednisone 20 mg p.o. daily and hope to taper this down slowly over time -continue scheduled DuoNebs 4 times daily -continue Symbicort BID, & Spiriva BID or formulary equivalents (7) Obstructive sleep apnea of adult: Compliant with CPAP HS in the hospital, however she is still not completed a formal sleep study as an outpatient and does not have a CPAP at home. -Will need overnight pulse oximetry test prior to discharge to qualify for home O2 -Get formal sleep study as an outpatient (8) GERD without esophagitis: - Switch omeprazole to pantoprazole as per hospital formulary. (9) Chronic pain: - Continue her usual [place] - Hold NSAIDs in setting of rectal sheath hematoma as above. - Baclofen HS. (10) Anxiety: - Continue her usual Xanax regimen. (11) Insomnia: - Continue her usual zolpidem HS. (12) Edema: chronic, was worsening with blood transfusions and was not getting usual lasix after admission reports lasix gives bad cramps in hands and feet Now resolved after starting Bumex, renal function stable, not getting cramps with Bumex and starting magnesium Weight is down now significantly from admission after starting Bumex Remains with hypoxia with minimal exertion which is also likely secondary to PEs as above Renal function stable -continue bumex 2mg po daily -continue aldactone continue KCl 20meq po daily -added on Magnesium 400mg po bid for muscle cramps -continue to fluid restrict-she does this on her own (13) Constipation: was severe, now had a BM on 04/15 after enema, Co lytely prep Continues to have once to twice daily bowel movements -continue Miralax bid -continue senna/docusate added on magnesium as above which will also help (14) Acute respiratory failure with hypoxia: as above, with hypoxia with exertion requiring O2, and now hypoxia at rest as above to 75% on the evening of 04/18 Had desaturation to 88% with exertion on the morning of 04/19 Then found to have bilateral PEs as above -will need to repeat two-step walk test again prior to discharge as she would not likely be going home within 48 hours of the last 1 on 04/19 -Continue diuresis as above with Bumex -Continue incentive spirometry -Will also need overnight pulse oximetry as above to qualify for nocturnal O2 (15) Fever: Had 1 fever on the evening of 04/17, was initially thought to be atelectasis versus from cellulitis on the abdomen at hematoma site, but in hindsight was probably secondary to development of DVT No further fever since that time Completing course of Ancef for cellulitis which is much improved on 04/20 (16) DVT prophylaxis: Previously, chemical anticoagulation contraindicated due to hematoma and acute blood loss anemia - Patient had refused SCDs due to breakdown of skin on chronic steroids, and now contraindicated due to DVT. Now back on heparin drip and restarting Coumadin as above for acute DVT/PE Disposition-continued stay Admission and Anticipated Discharge Date Admission Date: April 10, 2020 Subjective Pt bringing up thicker mucus today she thinks from getting diuretics. Less SOB, leg swelling down. No other concerns No bleeding from anywhere. Abd pain at hematoma site improved Review of Systems Review of Systems: All systems reviewed & are unremarkable except as noted in HPI & below Physical Exam Constitutional: WD/WN, vitals as above + morbidly obese Eyes: + anicteric sclerae Neck: trachea midline, no thyromegaly Respiratory: normal respiratory effort, lungs clear to auscultation no cough Cardiovascular: Rate/Rhythm: regular rate and regular rhythm Heart Sounds: no murmur Extremities: no edema Chest (Breasts): Chest: normal inspection of chest Gastrointestinal (Abdomen): Inspection/Auscultation: normal bowel sounds and + abdominal wall ecchymosis (acorss lower abd,much improved); + abdomen abnormal to inspection Percussion/Palpation: + abdomen tender (at site of hematoma) and abdomen soft Musculoskeletal: Extremities: extremities normal to inspection; no cyanosis and no clubbing Skin: no erythema (Erythema resolved on abdomen) Neurologic: moves all extremities and awake; no focal motor deficits Psychiatric: A+Ox3, euthymic affect Results & Data Results & Data ([facility]) Vital Signs (Past 12 Hours) Vital Signs Temp Pulse Resp BP Pulse Ox 04/20/20 07:47 36.9 C 84 20 173/68 H 100 04/20/20 07:00 79 18 100 04/19/20 23:00 37.0 C 84 20 144/75 H 96 Laboratory Results 04/20/20 04/20/20 04/20/20 Range/Units 04:28 04:28 04:28 WBC 14.45 H (4.8-10.8) K/uL RBC 3.01 L (4.2-5.4) M/uL Hgb 8.7 L (12.0-16.0) g/dL Hct 28.5 L (37-47) % MCV 94.7 (80-100) fL MCH 28.9 (25-34) pg MCHC 30.5 L (32-36) g/dL RDW Std Deviation 56.2 H (36.4-46.3) fL RDW Coeff of Felicia 16.7 H (11.5-14.5) % Plt Count 333 (130-400) K/uL MPV 9.6 (7.4-10.4) fL Immature Gran % (Auto) 2.1 % Neut % (Auto) 72.8 % Lymph % (Auto) 19.3 % Greenlee % (Auto) 4.3 % Eos % (Auto) 1.2 % Baso % (Auto) 0.3 % Neut # (Auto) 10.53 H (1.4-6.5) K/uL Lymph # (Auto) 2.79 (1.2-3.4) K/uL Greenlee # (Auto) 0.62 H (0.11-0.59) K/uL Eos # (Auto) 0.17 (0-0.5) K/uL Baso # (Auto) 0.04 (0-0.2) K/uL Immature Gran # (Auto) 0.30 H (0.00-0.02) K/uL Absolute Nucleated RBC 0.41 H (0-0) K/uL Nucleated RBC % (auto) 2.8 % Polychromasia 1+ PT 11.5 (9.0-12.0) Seconds INR 1.1 (0.9-1.1) APTT 87.4 H* (21.0-31.0) Seconds PTT Ratio 3.1 Sodium 136 (136-145) mmol/L Potassium 3.9 (3.5-5.1) mmol/L Chloride 99 (98-107) mmol/L Carbon Dioxide 31 (21-32) mmol/L Anion Gap 6.0 (3-11) BUN 9 (7-18) mg/dl Creatinine 0.73 (0.6-1.2) mg/dl Est Cr Clr Drug Dosing 161.4 ml/min Est GFR ( Amer) 113.7 Est GFR (Non-Af Amer) 98.1 BUN/Creatinine Ratio 12.7 (10-20) Glucose 107 H (70-99) mg/dl Calcium 8.7 (8.5-10.1) mg/dl Magnesium 2.8 H (1.8-2.4) mg/dl 04/19/20 04/19/20 04/19/20 Range/Units 20:29 13:03 13:03 WBC (4.8-10.8) K/uL RBC (4.2-5.4) M/uL Hgb (12.0-16.0) g/dL Hct (37-47) % MCV (80-100) fL MCH (25-34) pg MCHC (32-36) g/dL RDW Std Deviation (36.4-46.3) fL RDW Coeff of Felicia (11.5-14.5) % Plt Count (130-400) K/uL MPV (7.4-10.4) fL Immature Gran % (Auto) % Neut % (Auto) % Lymph % (Auto) % Greenlee % (Auto) % Eos % (Auto) % Baso % (Auto) % Neut # (Auto) (1.4-6.5) K/uL Lymph # (Auto) (1.2-3.4) K/uL Greenlee # (Auto) (0.11-0.59) K/uL Eos # (Auto) (0-0.5) K/uL Baso # (Auto) (0-0.2) K/uL Immature Gran # (Auto) (0.00-0.02) K/uL Absolute Nucleated RBC (0-0) K/uL Nucleated RBC % (auto) % Polychromasia PT 11.2 (9.0-12.0) Seconds INR 1.1 (0.9-1.1) APTT 27.1 22.3 (21.0-31.0) Seconds PTT Ratio 1.0 0.8 Sodium 135 L (136-145) mmol/L Potassium 4.3 (3.5-5.1) mmol/L Chloride 99 (98-107) mmol/L Carbon Dioxide 29 (21-32) mmol/L Anion Gap 7.0 (3-11) BUN 9 (7-18) mg/dl Creatinine 0.95 (0.6-1.2) mg/dl Est Cr Clr Drug Dosing 124.1 ml/min Est GFR ( Amer) 82.7 Est GFR (Non-Af Amer) 71.3 BUN/Creatinine Ratio 9.6 L (10-20) Glucose 178 H (70-99) mg/dl Calcium 9.1 (8.5-10.1) mg/dl Magnesium (1.8-2.4) mg/dl 04/19/20 Range/Units 13:03 WBC 17.00 H (4.8-10.8) K/uL RBC 3.35 L (4.2-5.4) M/uL Hgb 9.7 L (12.0-16.0) g/dL Hct 32.1 L (37-47) % MCV 95.8 (80-100) fL MCH 29.0 (25-34) pg MCHC 30.2 L (32-36) g/dL RDW Std Deviation 56.5 H (36.4-46.3) fL RDW Coeff of Felicia 16.8 H (11.5-14.5) % Plt Count 357 (130-400) K/uL MPV 9.8 (7.4-10.4) fL Immature Gran % (Auto) 1.9 % Neut % (Auto) 90.4 % Lymph % (Auto) 4.4 % Greenlee % (Auto) 2.8 % Eos % (Auto) 0.3 % Baso % (Auto) 0.2 % Neut # (Auto) 15.37 H (1.4-6.5) K/uL Lymph # (Auto) 0.75 L (1.2-3.4) K/uL Greenlee # (Auto) 0.48 (0.11-0.59) K/uL Eos # (Auto) 0.05 (0-0.5) K/uL Baso # (Auto) 0.03 (0-0.2) K/uL Immature Gran # (Auto) 0.32 H (0.00-0.02) K/uL Absolute Nucleated RBC 0.53 H (0-0) K/uL Nucleated RBC % (auto) 3.1 % Polychromasia 1+ PT (9.0-12.0) Seconds INR (0.9-1.1) APTT (21.0-31.0) Seconds PTT Ratio Sodium (136-145) mmol/L Potassium (3.5-5.1) mmol/L Chloride (98-107) mmol/L Carbon Dioxide (21-32) mmol/L Anion Gap (3-11) BUN (7-18) mg/dl Creatinine (0.6-1.2) mg/dl Est Cr Clr Drug Dosing ml/min Est GFR ( Amer) Est GFR (Non-Af Amer) BUN/Creatinine Ratio (10-20) Glucose (70-99) mg/dl Calcium (8.5-10.1) mg/dl Magnesium (1.8-2.4) mg/dl PG Care Time/CCT Total # of Minutes Spent Total Time Spent with Patient: Total time spent is greater than 50% in coordination of care (as documented) at patient's floor/unit and/or counseling patient: Coding Level of Care Code 65027 Subseq Hosp Care Lvl 2 Diagnoses Rectus sheath hematoma S30.1XXA Pulmonary emboli I26.99 Acute DVT (deep venous thrombosis) I82.409 Supratherapeutic INR R79.1 Anemia D64.9 Severe persistent asthma, poorly-controlled J45.51 Asthma complication type: with acute exacerbation Obstructive sleep apnea of adult G47.33 GERD without esophagitis K21.9 Chronic pain G89.29 Anxiety F41.9 Insomnia G47.00 Edema R60.9 Constipation K59.00 Acute respiratory failure with hypoxia J96.01 Fever R50.9 DVT prophylaxis Z29.9 (1) Severe persistent asthma, poorly-controlled Asthma complication type: with acute exacerbation Qualified Code(s): J45.51 - Severe persistent asthma with (acute) exacerbation
--- NOTE | 2020-04-20 12:35 | Surgery Progress Note ---
Date of Service April 20, 2020 Assessment & Plan (1) Rectus sheath hematoma: Rectus sheath hematoma symptoms are resolving. Ecchymosis is decreasing. From that standpoint she is doing much better. She has been restarted on anticoagulation considering the pulmonary emboli and DVT. Would need to be cautious regarding that especially considering the recent hematoma. We will continue to monitor. Admission and Anticipated Discharge Date Admission Date: April 10, 2020 Subjective Awake alert appears more comfortable at the present time. She was found to have bilateral pulmonary emboli as well as left DVT From an abdominal standpoint she states that the discomfort is decreasing on a daily basis. She is able to move now without much discomfort. She has had no nausea or vomiting and is tolerating a regular diet Physical Exam Gastrointestinal (Abdomen): Inspection/Auscultation: abdomen not distended Percussion/Palpation: + abdomen tender (Less tender today) Ecchymosis is resolving Results & Data ([facility]) Vital Signs (Past 12 Hours) Vital Signs Temp Pulse Resp BP Pulse Ox 04/20/20 11:17 79 20 100 04/20/20 07:47 36.9 C 84 20 173/68 H 100 04/20/20 07:00 79 18 100
[2020-04-20 12:57] LABS: Partial Thromboplastin Ratio 1.6; Partial Thromboplastin Time 43.9 Seconds (21.0-31.0)
[2020-04-20] MEDS ORDERED: HEPARIN IV BOLUS 4,000 UNITS in SYRINGE 0 ML IV ONE (13:30)
[2020-04-20] MEDS: ALPRAZolam 0.5 MG TABLET PO PRN (15:17)
[2020-04-20] MEDS ORDERED: WARFARIN SOD 10 MG TAB PO SCH (16:00)
[2020-04-20 19:47] LABS: Partial Thromboplastin Time 56.4 Seconds (21.0-31.0)
[2020-04-20] MEDS: BACLOFEN 10 MG TAB PO SCH (20:53)
[2020-04-20] MEDS: MONTELUKAST SODIUM 10 MG TABLET PO SCH (20:54)
[2020-04-20] MEDS: CETIRIZINE HCL 10 MG TABLET PO SCH (20:54)
[2020-04-20] MEDS: ALPRAZolam 0.5 MG TABLET PO SCH ×2 (20:55→21:10)
[2020-04-20] MEDS: HYDROCODONE/ACETAMINOPHEN 10/325 TAB PO PRN (23:28)
[2020-04-21] MEDS: ONDANSETRON INJ 2 MG/ML 2 ML VIAL IV PRN (04:33)
[2020-04-21] MEDS: ZOLPIDEM TARTRATE 10 MG TAB PO PRN (04:41)
[2020-04-21] MEDS: ALPRAZolam 0.5 MG TABLET PO PRN (04:42)
[2020-04-21 06:15] LABS: Basophils # (auto) 0.03 K/uL (0-0.2); Basophils % (auto) 0.2 %; Eosinophils % (auto) 1.4 %; Hemoglobin 8.9 g/dL (12.0-16.0); Immature Granulocytes # (auto) 0.24 K/uL (0.00-0.02); Immature Granulocytes % (auto) 1.7 %; Lymphocytes # (auto) 2.68 K/uL (1.2-3.4); Mean Corpuscular Hemoglobin 28.5 pg (25-34); Mean Corpuscular Hgb Conc 29.7 g/dL (32-36); Mean Corpuscular Volume 96.2 fL (80-100); Mean Platelet Volume 9.6 fL (7.4-10.4); Neutrophils # (auto) 10.25 K/uL (1.4-6.5); Neutrophils % (auto) 72.7 %; Nucleated RBC # (auto) 0.19 K/uL (0-0); Nucleated RBC % (auto) 1.3 %; Platelet Count 389 K/uL (130-400); RDW Coefficient of Variation 16.9 % (11.5-14.5); RDW Standard Deviation 57.2 fL (36.4-46.3); Red Blood Count 3.12 M/uL (4.2-5.4)
[2020-04-21 06:33] LABS: INR 1.2 (0.9-1.1); Partial Thromboplastin Ratio 2.7; Prothrombin Time 12.4 Seconds (9.0-12.0)
[2020-04-21 06:36] LABS: BUN Creatinine Ratio 14.4 (10-20); Creatinine Clr Calc Pharmacy 178.6 ml/min; Est GFR (African American) 121.9; Est GFR (Non-African American) 105.2; Potassium 3.7 mmol/L (3.5-5.1)
[2020-04-21] MEDS: HEPARIN SODIUM/DEXTROSE 25,000 UNITS/500 ML BAG IV SCH ×4 (07:20→21:25)
[2020-04-21] MEDS: ALBUT/IPRATROP 3MG/0.5MG NEB 3 ML VIAL NEB SCH ×4 (07:30→19:21)
[2020-04-21] MEDS: SPIRONOLACTONE 25 MG TAB PO SCH (09:21)
[2020-04-21] MEDS: PANTOprazole 40 MG TAB PO SCH (09:21)
[2020-04-21] MEDS: MAGNESIUM OXIDE 400 MG TAB PO SCH ×2 (09:22→21:17)
[2020-04-21] MEDS: FEXOFENADINE HCL 180 MG TAB PO SCH ×2 (09:22→21:18)
[2020-04-21] MEDS: POLYETHYLENE (MIRALAX) 17 GM PACK PO SCH ×2 (09:22→21:20)
[2020-04-21] MEDS: predniSONE 20 MG TAB PO SCH (09:22)
[2020-04-21] MEDS: OXYCODONE HCL IR 5 MG TAB (IMMEDIATE RELEASE) PO PRN ×4 (09:23→22:16)
[2020-04-21] MEDS: POTASSIUM CHLORIDE 20 MEQ TABCR PO SCH (09:23)
[2020-04-21] MEDS: FLUTICASONE PROPIONATE NA SPR 16 GM BTL NAE SCH (09:24)
[2020-04-21] MEDS: FLUTICASONE/VILANTEROL 100/25MCG 14 PUFFS/INHALER INH SCH (09:24)
[2020-04-21] MEDS: UMECLIDINIUM BROMIDE 62.5MCG/BLISTER 7 PUFFS/INHALER INH SCH (09:24)
[2020-04-21] MEDS: BUMETANIDE 1 MG TAB PO SCH (09:25)
[2020-04-21] MEDS: DOCUSATE SODIUM/SENNA 50/8.6MG TAB PO SCH (09:25)
[2020-04-21] MEDS: DICLOFENAC SOD 1% GEL 100 GM TUBE EXT SCH ×4 (09:26→21:18)
[2020-04-21 13:32] LABS: Partial Thromboplastin Ratio 1.9
[2020-04-21 13:34] LABS: Partial Thromboplastin Time 52.3 Seconds (21.0-31.0)
--- NOTE | 2020-04-21 15:00 | Hospitalist Progress Note ---
Date of Service April 21, 2020 Assessment & Plan (1) Rectus sheath hematoma: Presented with rectus sheath hematoma due to anticoagulant therapy. Acute blood loss anemia. Suspect secondary to abd wall strain with trying to get out of her recliner with supratherapeutic INR. - Patient required 2 PRBCs on 04/10. -continues with pain requiring opioids although now much improved, hgb stable today at 8.9 -Her warfarin was reversed upon admission and was held. Now with acute DVT/PE as below and has been restarted - Appreciate input from general surgery -> No surgical need at this time. - Ancef started on 04/13 by surgical team as they felt there was concern for mild cellulitis in the LLQ of the abdomen. Cellulitis is now completely resolved and she completed 7 days of Ancef on 04/20 - continue Pain control with oxycodone and/or hydrocodone (home medication) as needed -follow CBC especially now that is back on heparin drip and Coumadin (2) Pulmonary emboli: Hypoxia significantly worsened on the evening of 04/18 and 04/19 down to 75% on room air requiring O2 and with acute respiratory failure with hypoxia CT angiogram of the chest was performed on 04/19 which showed multiple bilateral segmental and subsegmental acute PEs Bilateral lower extremity venous Dopplers positive only for left peroneal vein DVT -continue heparin gtt, caution with rectus sheath hematoma and recent major bleeding -Needs 2 days of overlap with heparin drip once INR becomes therapeutic -Follow CBC closely and watch for bleeding at the site of the rectus sheath hematoma again-hgb stable today -Started Coumadin 10 mg daily on 04/19-of note, her normal dosing is 15 mg on Tuesdays and and 10 mg all other days -Will increase Coumadin to 15 mg daily on 04/21 as INR remains low at 1.2 -Follow INR and CBC in the morning -Will now require indefinite lifelong anticoagulation as this is her second occurrence of DVT/PE -If she developed recurrent bleeding, would be a candidate for IVC filter -Echocardiogram limited was rechecked to look for significant right heart strain and there was none She is not hypotensive She is not a candidate for TPA as she had a recent major bleed All of this was discussed with the patient at length with her present and she is agreeable to treatment (3) Acute DVT (deep venous thrombosis): Left peroneal vein as above (4) Supratherapeutic INR: INR up to 5.6 on admission. Pt has home INR machine and reports it was 3 just before she came in Question if home machine is accurate - Given Vit K initially for bleeding Now starting back on Coumadin as above for recurrent acute DVT/PE (5) Anemia: Acute blood loss anemia hgb baseline 12 just 2 weeks ago, dropped to 6.9 on admission from rectus sheath hematoma transfused 2 units PRBCs early in the course of admission, now hemoglobin 8.9 and stable -follow CBC in the morning as above especially in the setting of restarting anticoagulation (6) Severe persistent asthma, poorly-controlled: History of bronchial thermoplasty in 2015. Recently started dupilumab injections. - No current exacerbation. I feel current hypoxia and SOB related to m overload - Continue her usual regimen with prednisone 20 mg p.o. daily and hope to taper this down slowly over time -continue scheduled DuoNebs 4 times daily -continue Symbicort BID, & Spiriva BID or formulary equivalents (7) Obstructive sleep apnea of adult: Compliant with CPAP HS in the hospital, however she is still not completed a formal sleep study as an outpatient and does not have a CPAP at home. -Will need overnight pulse oximetry test prior to discharge to qualify for home O2 if she is no longer requiring O2 continuously at rest -Get formal sleep study as an outpatient (8) GERD without esophagitis: - Switch omeprazole to pantoprazole as per hospital formulary. (9) Chronic pain: - Continue her usual [place] - Hold NSAIDs in setting of rectal sheath hematoma as above. - Baclofen HS. (10) Anxiety: - Continue her usual Xanax regimen. (11) Insomnia: - Continue her usual zolpidem HS. (12) Edema: chronic, was worsening with blood transfusions and was not getting usual lasix after admission reports lasix gives bad cramps in hands and feet Now resolved after starting Bumex, renal function stable, not getting cramps with Bumex and starting magnesium Weight is down now significantly from admission after starting Bumex Remains with hypoxia with minimal exertion which is also likely secondary to PEs as above Renal function stable -continue bumex 2mg po daily -continue aldactone continue KCl 20meq po daily -added on Magnesium 400mg po bid for muscle cramps -continue to fluid restrict-she does this on her own (13) Constipation: was severe, now had a BM on 04/15 after enema, Co lytely prep Continues to have once to twice daily bowel movements -continue Miralax bid -continue senna/docusate added on magnesium as above which will also help (14) Acute respiratory failure with hypoxia: as above, with hypoxia with exertion requiring O2, and now hypoxia at rest as above to 75% on the evening of 04/18 Had desaturation to 88% with exertion on the morning of 04/19 Then found to have bilateral PEs as above -will need to repeat two-step walk test again prior to discharge -Continue diuresis as above with Bumex -Continue incentive spirometry -Will also need overnight pulse oximetry as above to qualify for nocturnal O2 if does not need continuous O2 at rest (15) Fever: Had 1 fever on the evening of 04/17, was initially thought to be atelectasis versus from cellulitis on the abdomen at hematoma site, but in hindsight was probably secondary to development of DVT No further fever since that time Completing course of Ancef for cellulitis which is much improved on 04/20 (16) DVT prophylaxis: Previously, chemical anticoagulation contraindicated due to hematoma and acute blood loss anemia - Patient had refused SCDs due to breakdown of skin on chronic steroids, and now contraindicated due to DVT. Now back on heparin drip and restarting Coumadin as above for acute DVT/PE Disposition-continued stay, hopeful for discharge to home likely in the next 2 to 3 days once INR is therapeutic with overlap of heparin drip for 2 days Admission and Anticipated Discharge Date Admission Date: April 10, 2020 Subjective Patient feeling much better today, less short of breath now that she is on continuous oxygen. Is having some cough productive of yellowish-brown sputum. Denies chest pain. Had some hand cramping last night but none so far today. She was unable to sleep last night till she got her Ambien late at night. She is making urine and moving her bowels. Abdominal pain at the site of the hematoma is much improved. Review of Systems Review of Systems: All systems reviewed & are unremarkable except as noted in HPI & below Physical Exam Constitutional: WD/WN, vitals as above + morbidly obese Eyes: + anicteric sclerae Neck: trachea midline, no thyromegaly Respiratory: no cough Auscultation: lungs clear to auscultation bilaterally and + diminished lung sounds (throughout); no rales, no rhonchi and no wheezes Cardiovascular: Rate/Rhythm: regular rate and regular rhythm Heart Sounds: no murmur Extremities: no edema Chest (Breasts): Chest: normal inspection of chest Gastrointestinal (Abdomen): Inspection/Auscultation: normal bowel sounds and + abdominal wall ecchymosis (acorss lower abd,much improved); + abdomen abnormal to inspection Percussion/Palpation: + abdomen tender (at site of hematoma) and abdomen soft Musculoskeletal: Extremities: extremities normal to inspection; no cyanosis and no clubbing Skin: no erythema (Erythema resolved on abdomen) Neurologic: moves all extremities and awake; no focal motor deficits Psychiatric: A+Ox3, euthymic affect Results & Data Results & Data ([facility]) Vital Signs (Past 12 Hours) Vital Signs Temp Pulse Pulse Resp BP Pulse Ox 04/21/20 14:57 36.5 C 84 18 105/71 98 04/21/20 11:02 19 97 04/21/20 07:57 36.6 C 77 22 135/80 99 04/21/20 07:33 74 18 97 04/21/20 07:32 74 20 97 04/21/20 04:52 100 H 20 100 Laboratory Results 04/21/20 04/21/20 04/21/20 Range/Units 12:59 05:59 05:59 WBC (4.8-10.8) K/uL RBC (4.2-5.4) M/uL Hgb (12.0-16.0) g/dL Hct (37-47) % MCV (80-100) fL MCH (25-34) pg MCHC (32-36) g/dL RDW Std Deviation (36.4-46.3) fL RDW Coeff of Felicia (11.5-14.5) % Plt Count (130-400) K/uL MPV (7.4-10.4) fL Immature Gran % (Auto) % Neut % (Auto) % Lymph % (Auto) % [place] % (Auto) % Eos % (Auto) % Baso % (Auto) % Neut # (Auto) (1.4-6.5) K/uL Lymph # (Auto) (1.2-3.4) K/uL [place] # (Auto) (0.11-0.59) K/uL Eos # (Auto) (0-0.5) K/uL Baso # (Auto) (0-0.2) K/uL Immature Gran # (Auto) (0.00-0.02) K/uL Absolute Nucleated RBC (0-0) K/uL Nucleated RBC % (auto) % PT 12.4 H (9.0-12.0) Seconds INR 1.2 H (0.9-1.1) APTT 52.3 H* 76.0 H* (21.0-31.0) Seconds PTT Ratio 1.9 2.7 Sodium 137 (136-145) mmol/L Potassium 3.7 (3.5-5.1) mmol/L Chloride 100 (98-107) mmol/L Carbon Dioxide 30 (21-32) mmol/L Anion Gap 7.0 (3-11) BUN 10 (7-18) mg/dl Creatinine 0.66 (0.6-1.2) mg/dl Est Cr Clr Drug Dosing 178.6 ml/min Est GFR ( Amer) 121.9 Est GFR (Non-Af Amer) 105.2 BUN/Creatinine Ratio 14.4 (10-20) Glucose 113 H (70-99) mg/dl Calcium 9.0 (8.5-10.1) mg/dl 04/21/20 04/20/20 Range/Units 05:59 19:07 WBC 14.10 H (4.8-10.8) K/uL RBC 3.12 L (4.2-5.4) M/uL Hgb 8.9 L (12.0-16.0) g/dL Hct 30.0 L (37-47) % MCV 96.2 (80-100) fL MCH 28.5 (25-34) pg MCHC 29.7 L (32-36) g/dL RDW Std Deviation 57.2 H (36.4-46.3) fL RDW Coeff of Felicia 16.9 H (11.5-14.5) % Plt Count 389 (130-400) K/uL MPV 9.6 (7.4-10.4) fL Immature Gran % (Auto) 1.7 % Neut % (Auto) 72.7 % Lymph % (Auto) 19.0 % [place] % (Auto) 5.0 % Eos % (Auto) 1.4 % Baso % (Auto) 0.2 % Neut # (Auto) 10.25 H (1.4-6.5) K/uL Lymph # (Auto) 2.68 (1.2-3.4) K/uL [place] # (Auto) 0.70 H (0.11-0.59) K/uL Eos # (Auto) 0.20 (0-0.5) K/uL Baso # (Auto) 0.03 (0-0.2) K/uL Immature Gran # (Auto) 0.24 H (0.00-0.02) K/uL Absolute Nucleated RBC 0.19 H (0-0) K/uL Nucleated RBC % (auto) 1.3 % PT (9.0-12.0) Seconds INR (0.9-1.1) APTT 56.4 H* (21.0-31.0) Seconds PTT Ratio 2.0 Sodium (136-145) mmol/L Potassium (3.5-5.1) mmol/L Chloride (98-107) mmol/L Carbon Dioxide (21-32) mmol/L Anion Gap (3-11) BUN (7-18) mg/dl Creatinine (0.6-1.2) mg/dl Est Cr Clr Drug Dosing ml/min Est GFR ( Amer) Est GFR (Non-Af Amer) BUN/Creatinine Ratio (10-20) Glucose (70-99) mg/dl Calcium (8.5-10.1) mg/dl PG Care Time/CCT Total # of Minutes Spent Total Time Spent with Patient: Total time spent is greater than 50% in coordination of care (as documented) at patient's floor/unit and/or counseling patient: Coding Level of Care Code 32149 Subseq Hosp Care Lvl 2 Diagnoses Rectus sheath hematoma S30.1XXA Pulmonary emboli I26.99 Acute DVT (deep venous thrombosis) I82.409 Supratherapeutic INR R79.1 Anemia D64.9 Severe persistent asthma, poorly-controlled J45.51 Asthma complication type: with acute exacerbation Obstructive sleep apnea of adult G47.33 GERD without esophagitis K21.9 Chronic pain G89.29 Anxiety F41.9 Insomnia G47.00 Edema R60.9 Constipation K59.00 Acute respiratory failure with hypoxia J96.01 Fever R50.9 DVT prophylaxis Z29.9 (1) Severe persistent asthma, poorly-controlled Asthma complication type: with acute exacerbation Qualified Code(s): J45.51 - Severe persistent asthma with (acute) exacerbation
[2020-04-21] MEDS: WARFARIN SOD 7.5 MG TAB PO SCH (16:28)
[2020-04-21] MEDS: HYDROCODONE/ACETAMINOPHEN 10/325 TAB PO PRN ×2 (16:28→23:11)
[2020-04-21] MEDS: ALPRAZolam 0.5 MG TABLET PO SCH (21:17)
[2020-04-21] MEDS: CETIRIZINE HCL 10 MG TABLET PO SCH (21:18)
[2020-04-21] MEDS: MONTELUKAST SODIUM 10 MG TABLET PO SCH (21:18)
[2020-04-21] MEDS: BACLOFEN 10 MG TAB PO SCH (21:18)
[2020-04-22] MEDS: ZOLPIDEM TARTRATE 10 MG TAB PO PRN ×2 (00:02→23:10)
[2020-04-22 05:50] LABS: Hematocrit (blood only) 31.3 % (37-47); Hemoglobin 9.6 g/dL (12.0-16.0); Mean Corpuscular Hgb Conc 30.7 g/dL (32-36); Mean Corpuscular Volume 94.6 fL (80-100); Mean Platelet Volume 9.9 fL (7.4-10.4); Nucleated RBC # (auto) 0.08 K/uL (0-0); Nucleated RBC % (auto) 0.6 %; Platelet Count 432 K/uL (130-400); RDW Coefficient of Variation 16.3 % (11.5-14.5); RDW Standard Deviation 55.6 fL (36.4-46.3); Red Blood Count 3.31 M/uL (4.2-5.4); White Blood Count 14.28 K/uL (4.8-10.8)
[2020-04-22 06:09] LABS: INR 1.5 (0.9-1.1); Partial Thromboplastin Ratio 2.1; Prothrombin Time 15.2 Seconds (9.0-12.0)
[2020-04-22 06:19] LABS: Partial Thromboplastin Time 59.8 Seconds (21.0-31.0)
[2020-04-22 06:22] LABS: BUN Creatinine Ratio 14.9 (10-20); Calcium 9.8 mg/dl (8.5-10.1); Creatinine Clr Calc Pharmacy 140.8 ml/min; Est GFR (African American) 95.9; Est GFR (Non-African American) 82.8
[2020-04-22] MEDS: HYDROCODONE/ACETAMINOPHEN 10/325 TAB PO PRN ×2 (06:34→14:14)
[2020-04-22] MEDS: ALBUT/IPRATROP 3MG/0.5MG NEB 3 ML VIAL NEB SCH ×4 (06:57→19:37)
[2020-04-22] MEDS: BUMETANIDE 1 MG TAB PO SCH (08:30)
[2020-04-22] MEDS: FEXOFENADINE HCL 180 MG TAB PO SCH ×2 (08:30→20:18)
[2020-04-22] MEDS: PANTOprazole 40 MG TAB PO SCH (08:30)
[2020-04-22] MEDS: MAGNESIUM OXIDE 400 MG TAB PO SCH ×2 (08:30→20:17)
[2020-04-22] MEDS: predniSONE 20 MG TAB PO SCH (08:30)
[2020-04-22] MEDS: SPIRONOLACTONE 25 MG TAB PO SCH (08:31)
[2020-04-22] MEDS: UMECLIDINIUM BROMIDE 62.5MCG/BLISTER 7 PUFFS/INHALER INH SCH (08:31)
[2020-04-22] MEDS: POTASSIUM CHLORIDE 20 MEQ TABCR PO SCH (08:31)
[2020-04-22] MEDS: FLUTICASONE PROPIONATE NA SPR 16 GM BTL NAE SCH (08:32)
[2020-04-22] MEDS: DICLOFENAC SOD 1% GEL 100 GM TUBE EXT SCH ×4 (08:38→20:18)
[2020-04-22] MEDS: OXYCODONE HCL IR 5 MG TAB (IMMEDIATE RELEASE) PO PRN ×3 (08:43→20:27)
[2020-04-22] MEDS: HEPARIN SODIUM/DEXTROSE 25,000 UNITS/500 ML BAG IV SCH ×2 (08:54→20:13)
[2020-04-22] MEDS: POLYETHYLENE (MIRALAX) 17 GM PACK PO SCH ×2 (08:56→20:17)
[2020-04-22] MEDS: DOCUSATE SODIUM/SENNA 50/8.6MG TAB PO SCH (10:06)
[2020-04-22] MEDS: FLUTICASONE/VILANTEROL 100/25MCG 14 PUFFS/INHALER INH SCH (10:07)
--- NOTE | 2020-04-22 10:55 | Hospitalist Progress Note ---
Date of Service April 22, 2020 Assessment & Plan (1) Acute blood loss anemia: 2nd rectus sheath hematoma - spontaneous - in setting of chronic coumadin use. s/p 2 units PRBCs this admission. coumadin was appropriately held early on -- unfortunately developed recurrent VTE (DVT with PEs). heparin drip resumed and coumadin restarted on 04/20. daily CBC to ensure no drop in H/H. (2) Rectus sheath hematoma: clinically no signs of recurrent bleeding. did not require surgical intervention. there was some concern early on in stay re: abdominal wall cellulitis and she received 7-day course of Ancef IV. resolved. cont pain meds prn. cont heparin drip with coumadin cautiously. (3) Pulmonary emboli: Coumadin 10 mg - 04/19, 04/20 Coumadin 15mg on 04/21, 04/22 daily INR Previous home dosin mg on Tuesdays and ; 10 mg all other days patient developed DVT with PEs when she was off coumadin appropriately due to rectus sheath hematoma (4) Acute DVT (deep venous thrombosis): Left peroneal vein acute heparin drip with coumadin daily INR (5) Supratherapeutic INR: early in stay - resolved (6) Anemia: Acute blood loss anemia 2nd rectus sheath hematoma lowest Hb 6.9 s/p 2 units PRBCs early in admission H/H stable since arguing no further abdominal wall bleeding (7) Severe persistent asthma, poorly-controlled: History of bronchial thermoplasty in 2014. Recently started dupilumab injections. Ok to give this today while hospitalized. Lungs clear; not in exacerbation. Cont prednisone 20mg/day. Cont nebs. Cont usual inhalers. Wean O2 as tolerated. Current hypoxia likely 2nd to PEs. (8) Obstructive sleep apnea of adult: Compliant with CPAP HS in the hospital, however she is still not completed a formal sleep study as an outpatient and does not have a CPAP at home. Overnight pulse oximetry test prior to discharge to qualify for HS O2 Needs formal outpatient sleep study (9) GERD without esophagitis: PPI (10) Chronic pain: norco prn (11) Anxiety: Xanax per home dosing (12) Insomnia: zolpidem HS prn - she takes such at home (13) Edema: 2nd to chronic prednisone, PRBCs this admission, etc. continue bumex 2mg po daily continue aldactone continue KCl 20meq po daily continue Magnesium 400mg po bid (14) Constipation: improved; continue Miralax bid, senna, colace (15) Acute respiratory failure with hypoxia: 2nd to PEs improved (16) Candidiasis of mouth and esophagus: 2nd steroids nystatin solution - 5cc ac/hs (17) Hand cramps: 2nd to Fe Deficiency? venofer 200mg IV x 1 consider mirapex or requip as well K/Mag/Ca all normal (18) DVT prophylaxis: heparin w/ coumadin left message for this evening on voicemail Admission and Anticipated Discharge Date Admission Date: April 10, 2020 Subjective patient c/o fatigue and FUNEZ but no dyspnea at rest she feels like her COPD "might be active" but no significant cough eating well hoping to be d/c from hospital by am - has appt with Pulmonary as outpatient getting cramps in hands these have been severe of late occasionally in feet as well Review of Systems Constitutional: no fever and no chills Respiratory: no wheezing Cardiovascular: no chest pain Gastrointestinal: no abdominal pain, no nausea and no vomiting Physical Exam Constitutional: + morbidly obese; no acute distress and no altered mental status ENMT: Mouth: + oral mucosal abnormality (?thrush plaques oral mucosa ) Respiratory: normal respiratory effort, lungs clear to auscultation Auscultation: + diminished lung sounds (bases); no crackles and no wheezes Cardiovascular: Rate/Rhythm: regular rate and regular rhythm Heart Sounds: normal S1 and normal S2; no murmur Vessels: posterior tibial pulses present a nd dorsalis pedis pulses present; no JVD Extremities: + edema (trace b/l ) Gastrointestinal (Abdomen): Inspection/Auscultation: + abdomen distended Percussion/Palpation: + abdomen tender (generalized - due to hematoma); no guarding Skin: + ecchymosis (severe- abdominal wall, flanks ) Psychiatric: A+Ox3, euthymic affect Results & Data Results & Data ([facility]) Vital Signs (Past 12 Hours) Vital Signs Temp Pulse Pulse Resp BP Pulse Ox 04/22/20 08:00 36.5 C 77 18 139/76 94 04/22/20 06:58 74 16 97 04/22/20 03:23 80 18 96 09/14/20 00:58 82 18 98 04/22/20 00:02 76 14 132/77 04/21/20 23:22 93 04/21/20 23:10 36.8 C 77 18 150/77 H 87 L Laboratory Results Laboratory Results - last 24 hr 04/21/20 04/22/20 04/22/20 12:59 05:03 05:03 WBC 14.28 H RBC 3.31 L Hgb 9.6 L Hct 31.3 L MCV 94.6 MCH 29.0 MCHC 30.7 L RDW Std Deviation 55.6 H RDW Coeff of Felicia 16.3 H Plt Count 432 H MPV 9.9 Absolute Nucleated RBC 0.08 H Nucleated RBC % (auto) 0.6 PT 15.2 H INR 1.5 H APTT 52.3 H* 59.8 H* PTT Ratio 1.9 2.1 Sodium Potassium Chloride Carbon Dioxide Anion Gap BUN Creatinine Est Cr Clr Drug Dosing Est GFR ( Amer) Est GFR (Non-Af Amer) BUN/Creatinine Ratio Glucose Calcium 04/22/20 05:03 WBC RBC Hgb Hct MCV MCH MCHC RDW Std Deviation RDW Coeff of Felicia Plt Count MPV Absolute Nucleated RBC Nucleated RBC % (auto) PT INR APTT PTT Ratio Sodium 134 L Potassium 4.0 Chloride 96 L Carbon Dioxide 32 Anion Gap 6.0 BUN 13 Creatinine 0.84 Est Cr Clr Drug Dosing 140.8 Est GFR ( Amer) 95.9 Est GFR (Non-Af Amer) 82.8 BUN/Creatinine Ratio 14.9 Glucose 117 H Calcium 9.8 PG Care Time/CCT Total # of Minutes Spent Total Time Spent with Patient: Total time spent is greater than 50% in coordination of care (as documented) at patient's floor/unit and/or counseling patient: Coding Level of Care Code 96047 Subseq Hosp Care Lvl 3 Diagnoses Acute blood loss anemia D62 Rectus sheath hematoma S30.1XXD Encounter type: subsequent encounter Pulmonary emboli I26.99 Pulmonary embolism type: unspecified Chronicity: acute Acute cor pulmonale presence: without acute cor pulmonale Acute DVT (deep venous thrombosis) I82.452 DVT location: lower extremity Affected thrombotic vein of extremity: peroneal Laterality: left Supratherapeutic INR R79.1 Anemia D64.9 Anemia type: unspecified type Severe persistent asthma, poorly-controlled J45.51 Asthma complication type: with acute exacerbation Obstructive sleep apnea of adult G47.33 GERD without esophagitis K21.9 Chronic pain G89.29 Anxiety F41.9 Insomnia G47.00 Edema R60.9 Constipation K59.00 Acute respiratory failure with hypoxia J96.01 Candidiasis of mouth and esophagus B37.81; B37.0 Hand cramps R25.2 DVT prophylaxis Z29.9 (1) Rectus sheath hematoma Encounter type: subsequent encounter Qualified Code(s): S30.1XXD - Contusion of abdominal wall, subsequent encounter (2) Pulmonary emboli Pulmonary embolism type: unspecified Chronicity: acute Acute cor pulmonale presence: without acute cor pulmonale Qualified Code(s): I26.99 - Other pulmonary embolism without acute cor pulmonale (3) Acute DVT (deep venous thrombosis) DVT location: lower extremity Affected thrombotic vein of extremity: peroneal Laterality: left Qualified Code(s): I82.452 - Acute embolism and thrombosis of left peroneal vein (4) Anemia Anemia type: unspecified type Qualified Code(s): D64.9 - Anemia, unspecified (5) Severe persistent asthma, poorly-controlled Asthma complication type: with acute exacerbation Qualified Code(s): J45.51 - Severe persistent asthma with (acute) exacerbation
[2020-04-22] MEDS ORDERED: CYANOCOBALAMIN 1000 MCG/ML VIAL IM ONE (11:00)
[2020-04-22 11:28] LABS: Ferritin 185.2 ng/ml (8-388)
--- NOTE | 2020-04-22 11:51 | Surgery Progress Note ---
Date of Service April 22, 2020 Assessment & Plan (1) Rectus sheath hematoma: Continues to improve. No evidence of recurrence or recurrent bleeding after reinitiation of anticoagulation therapy No indication for surgical intervention at this time. Admission and Anticipated Discharge Date Admission Date: April 10, 2020 Subjective Only discomfort is now in the very lower abdomen where the ecchymosis persists Denies nausea and vomiting Less short of breath Physical Exam Gastrointestinal (Abdomen): Inspection/Auscultation: abdomen not distended Percussion/Palpation: + abdomen tender (Lowermost portion of her midline where t he ecchymosis persists) and abdomen soft Ecchymosis not only in the lowest portion of her abdomen with the rest having resolved Results & Data ([facility]) Vital Signs (Past 12 Hours) Vital Signs Temp Pulse Pulse Resp BP Pulse Ox 04/22/20 11:19 71 16 96 04/22/20 08:00 36.5 C 77 18 139/76 94 04/22/20 06:58 74 16 97 04/22/20 03:23 80 18 96 04/22/20 00:58 82 18 98 04/22/20 00:02 76 14 132/77
[2020-04-22] MEDS ORDERED: IRON SUCROSE 200 MG in 0.9 % SODIUM CHLORIDE 100 ML IV STA (12:03)
[2020-04-22] MEDS: ALPRAZolam 0.5 MG TABLET PO PRN (12:42)
[2020-04-22] MEDS: NYSTATIN SUSP 500,000 U/5 ML UDC PO SCH ×3 (13:01→20:17)
[2020-04-22] MEDS ORDERED: DUPIXENT 300 MG/2 ML SQ ONE (14:30)
[2020-04-22] MEDS: WARFARIN SOD 7.5 MG TAB PO SCH (16:29)
[2020-04-22] MEDS: MONTELUKAST SODIUM 10 MG TABLET PO SCH (20:17)
[2020-04-22] MEDS: CETIRIZINE HCL 10 MG TABLET PO SCH (20:17)
[2020-04-22] MEDS: BACLOFEN 10 MG TAB PO SCH (20:18)
[2020-04-22] MEDS: ALPRAZolam 0.5 MG TABLET PO SCH (20:18)
[2020-04-22] MEDS: ACETAMINOPHEN 325 MG TAB PO PRN (23:10)
[2020-04-23] MEDS: OXYCODONE HCL IR 5 MG TAB (IMMEDIATE RELEASE) PO PRN ×5 (00:27→20:07)
[2020-04-23 06:55] LABS: INR 2.4 (0.9-1.1); Partial Thromboplastin Ratio 3.6; Prothrombin Time 24.4 Seconds (9.0-12.0)
[2020-04-23 06:58] LABS: Partial Thromboplastin Time 99.7 Seconds (21.0-31.0)
[2020-04-23] MEDS: ALBUT/IPRATROP 3MG/0.5MG NEB 3 ML VIAL NEB SCH ×4 (07:03→19:24)
[2020-04-23 07:11] LABS: BUN Creatinine Ratio 14.4 (10-20); Calcium 9.6 mg/dl (8.5-10.1); Creatinine Clr Calc Pharmacy 176.5 ml/min; Est GFR (African American) 121.3; Est GFR (Non-African American) 104.7; Potassium 4.3 mmol/L (3.5-5.1)
[2020-04-23] MEDS: HEPARIN SODIUM/DEXTROSE 25,000 UNITS/500 ML BAG IV SCH ×2 (08:01→22:21)
[2020-04-23] MEDS: predniSONE 20 MG TAB PO SCH (08:07)
[2020-04-23] MEDS: FEXOFENADINE HCL 180 MG TAB PO SCH ×2 (08:07→21:51)
[2020-04-23] MEDS: POTASSIUM CHLORIDE 20 MEQ TABCR PO SCH (08:08)
[2020-04-23] MEDS: SPIRONOLACTONE 25 MG TAB PO SCH (08:08)
[2020-04-23] MEDS: BUMETANIDE 1 MG TAB PO SCH (08:08)
[2020-04-23] MEDS: MAGNESIUM OXIDE 400 MG TAB PO SCH ×2 (08:08→21:51)
[2020-04-23] MEDS: PANTOprazole 40 MG TAB PO SCH (08:08)
[2020-04-23] MEDS: FLUTICASONE PROPIONATE NA SPR 16 GM BTL NAE SCH (08:09)
[2020-04-23] MEDS: FLUTICASONE/VILANTEROL 100/25MCG 14 PUFFS/INHALER INH SCH (08:09)
[2020-04-23] MEDS: UMECLIDINIUM BROMIDE 62.5MCG/BLISTER 7 PUFFS/INHALER INH SCH (08:09)
[2020-04-23] MEDS: NYSTATIN SUSP 500,000 U/5 ML UDC PO SCH ×4 (08:10→21:52)
[2020-04-23] MEDS: DOCUSATE SODIUM/SENNA 50/8.6MG TAB PO SCH (08:11)
[2020-04-23] MEDS: POLYETHYLENE (MIRALAX) 17 GM PACK PO SCH ×2 (08:21→21:51)
[2020-04-23] MEDS: DICLOFENAC SOD 1% GEL 100 GM TUBE EXT SCH ×5 (08:21→22:00)
[2020-04-23] MEDS: ACETAMINOPHEN 325 MG TAB PO PRN (14:16)
--- NOTE | 2020-04-23 14:23 | Hospitalist Progress Note ---
Date of Service April 23, 2020 Assessment & Plan (1) Acute blood loss anemia: 2nd rectus sheath hematoma - spontaneous - in setting of chronic coumadin use. s/p 2 units PRBCs earlier this admission. coumadin was appropriately held early on -- unfortunately developed recurrent VTE (DVT with PEs) while off anticoagulation. heparin drip resumed and coumadin restarted on 04/19. rechecked H/H today - stable, if anything her counts are improved. repeat Hb in am. (2) Rectus sheath hematoma: clinically no signs of recurrent bleeding. did not require surgical intervention. there was some concern early on in stay re: abdominal wall cellulitis and she received 7-day course of Ancef IV - now resolved. cont pain meds prn (reordered norco prn). cont heparin drip with coumadin cautiously. (3) Pulmonary emboli: Coumadin 10 mg - 04/19, 04/20 Coumadin 15mg on 04/21, 04/22 INR today 2.4 (was 1.5 yesterday). HOLD COUMADIN TODAY WITH RAPID rise over last 24 hours. repeat INR am. Previous home dosin mg on Tuesdays and ; 10 mg all other days patient developed DVT with PEs when she was off coumadin appropriately due to rectus sheath hematoma (4) Acute DVT (deep venous thrombosis): Left peroneal vein acute heparin drip with coumadin daily INR (5) Supratherapeutic INR: early in stay - resolved (6) Anemia: Acute blood loss anemia 2nd rectus sheath hematoma lowest Hb 6.9 s/p 2 units PRBCs early in admission with stable H/H since h/o b12 def - s/p injection yesterday (7) Severe persistent asthma, poorly-controlled: History of bronchial thermoplasty in 2014. Recently started dupilumab injections and received injection yesterday. Lungs clear; not in exacerbation. Cont prednisone 20mg/day. Cont nebs. Cont usual inhalers. O2 sats at rest wnl. Will order 2-step in am to determine if O2 needed w/ activity. Current hypoxia likely 2nd to PEs. (8) Obstructive sleep apnea of adult: Compliant with CPAP HS in the hospital, however she is still not completed a formal sleep study as an outpatient and does not have a CPAP at home. Overnight pulse oximetry test prior to discharge to qualify for HS O2 Needs formal outpatient sleep study (9) GERD without esophagitis: PPI (10) Chronic pain: norco prn - restarted today (11) Anxiety: Xanax per home dosing (12) Insomnia: zolpidem HS prn - she takes such at home (13) Edema: 2nd to chronic prednisone, PRBCs this admission, etc. - resolved continue bumex 2mg po daily continue aldactone continue KCl 20meq po daily continue Magnesium 400mg po bid repeat labs am (14) Constipation: improved/resolved; continue Miralax bid, senna, colace (15) Acute respiratory failure with hypoxia: 2nd to PEs improved/resolved NC O2 weaned off at rest (16) Candidiasis of mouth and esophagus: 2nd steroids improved cont nystatin solution - 5cc ac/hs (17) Hand cramps: 2nd to Fe Deficiency? venofer 200mg IV x 1 improved today repeat ferritin robust - hold off on additional Fe at this time K/Mag/Ca all normal (18) DVT prophylaxis: heparin w/ coumadin left message for on 04/22 and 04/23 check u/a due to foul-smelling urine hopefully d/c home tomorrow Admission and Anticipated Discharge Date Admission Date: April 10, 2020 Subjective patient having an overall good day. less hand cramps. minimal cough. no wheezing. minimal FUNEZ. eating fine. minimal abdominal pain. mild low back pain and flank pain. no bleeding from any location. did receive her dupilumab yesterday. Review of Systems Constitutional: no fever Cardiovascular: no chest pain Gastrointestinal: no abdominal pain, no nausea and no vomiting Genitourinary: no dysuria, but reports foul-smelling urine Physical Exam Constitutional: + morbidly obese; no acute distress and no altered mental status ENMT: Mouth: + oral mucosal abnormality (thrush plaques improved ) Respiratory: normal respiratory effort, lungs clear to auscultation Auscultation: + diminished lung sounds (bases); no crackles and no wheezes Cardiovascular: Rate/Rhythm: regular rate and regular rhythm Heart Sounds: normal S1 and normal S2; no murmur Vessels: posterior tibial pulses present and dorsalis pedis pulses present; no JVD Extremities: no edema Gastrointestinal (Abdomen): Inspection/Auscultation: + abdomen distended (no change ) and + abdominal wall ecchymosis (no change from yesterday's exam) Percussion/Palpation: abdomen nontender and no guarding Skin: + ecchymosis (severe- abdominal wall, flanks ) Psychiatric: A+Ox3, euthymic affect Results & Data Results & Data ([facility]) Vital Signs (Past 12 Hours) Vital Signs Temp Pulse Resp BP Pulse Ox 04/23/20 11:06 78 19 96 04/23/20 07:12 36.6 C 67 20 127/66 99 04/23/20 07:03 76 17 99 Laboratory Results Laboratory Results - last 24 hr 04/23/20 04/23/20 04/23/20 05:22 05:22 14:04 PT 24.4 H INR 2.4 H APTT 99.7 H* Pending PTT Ratio 3.6 Pending Sodium 135 L Potassium 4.3 Chloride 96 L Carbon Dioxide 34 H Anion Gap 5.0 BUN 10 Creatinine 0.67 Est Cr Clr Drug Dosing 176.5 Est GFR ( Amer) 121.3 Est GFR (Non-Af Amer) 104.7 BUN/Creatinine Ratio 14.4 Glucose 98 Calcium 9.6 PG Care Time/CCT Total # of Minutes Spent Total Time Spent with Patient: Total time spent is greater than 50% in coordination of care (as documented) at patient's floor/unit and/or counseling patient: Coding Level of Care Code 51893 Subseq Hosp Care Lvl 3 Diagnoses Acute blood loss anemia D62 Rectus sheath hematoma S30.1XXD Encounter type: subsequent encounter Pulmonary emboli I26.99 Acute cor pulmonale presence: without acute cor pulmonale Chronicity: acute Pulmonary embolism type: unspecified Acute DVT (deep venous thrombosis) I82.452 Affected thrombotic vein of extremity: peroneal DVT location: lower extremity Laterality: left Supratherapeutic INR R79.1 Anemia D64.9 Anemia type: unspecified type Severe persistent asthma, poorly-controlled J45.51 Asthma complication type: with acute exacerbation Obstructive sleep apnea of adult G47.33 GERD without esophagitis K21.9 Chronic pain G89.29 Anxiety F41.9 Insomnia G47.00 Edema R60.9 Constipation K59.00 Acute respiratory failure with hypoxia J96.01 Candidiasis of mouth and esophagus B37.81; B37.0 Hand cramps R25.2 DVT prophylaxis Z29.9 (1) Anemia Anemia type: unspecified type Qualified Code(s): D64.9 - Anemia, unspecified (2) Acute DVT (deep venous thrombosis) Affected thrombotic vein of extremity: peroneal DVT location: lower extremity Laterality: left Qualified Code(s): I82.452 - Acute embolism and thrombosis of left peroneal vein (3) Severe persistent asthma, poorly-controlled Asthma complication type: with acute exacerbation Qualified Code(s): J45.51 - Severe persistent asthma with (acute) exacerbation (4) Pulmonary emboli Acute cor pulmonale presence: without acute cor pulmonale Chronicity: acute Pulmonary embolism type: unspecified Qualified Code(s): I26.99 - Other pulmonary embolism without acute cor pulmonale (5) Rectus sheath hematoma Encounter type: subsequent encounter Qualified Code(s): S30.1XXD - Contusion of abdominal wall, subsequent encounter
[2020-04-23] MEDS: HYDROCODONE/ACETAMINOPHEN 10/325 TAB PO PRN ×2 (14:24→21:49)
[2020-04-23 14:42] LABS: Partial Thromboplastin Ratio 2.8
[2020-04-23 14:44] LABS: Partial Thromboplastin Time 77.7 Seconds (21.0-31.0)
[2020-04-23 14:49] LABS: INR 2.7 (0.9-1.1); Prothrombin Time 27.3 Seconds (9.0-12.0)
[2020-04-23 15:01] LABS: Hematocrit (blood only) 33.9 % (37-47); Hemoglobin 10.4 g/dL (12.0-16.0)
[2020-04-23] MEDS: ALPRAZolam 0.5 MG TABLET PO PRN (16:16)
[2020-04-23 21:29] LABS: Partial Thromboplastin Time 82.6 Seconds (21.0-31.0)
[2020-04-23 21:49] LABS: Appearance Urine Clear (Clear); Bilirubin Urine Negative (Negative); Blood Urine Negative (Negative); Color Urine Yellow; Glucose Urine UA Negative (Negative); Ketones Urine Negative (Negative); Leukocyte Esterase Urine Negative (Negative); Nitrite Urine Negative (Negative); Protein Urine Negative (Negative); Specific Gravity Urine 1.004 (1.000-1.030); Urobilinogen Urine Negative (Negative); pH Urine 7.5 (4.5-7.5)
[2020-04-23] MEDS: ALPRAZolam 0.5 MG TABLET PO SCH (21:49)
[2020-04-23] MEDS: ZOLPIDEM TARTRATE 10 MG TAB PO PRN ×2 (21:50→21:58)
[2020-04-23] MEDS: BACLOFEN 10 MG TAB PO SCH (21:51)
[2020-04-23] MEDS: CETIRIZINE HCL 10 MG TABLET PO SCH (21:52)
[2020-04-23] MEDS: MONTELUKAST SODIUM 10 MG TABLET PO SCH (21:52)
[2020-04-24] MEDS: OXYCODONE HCL IR 5 MG TAB (IMMEDIATE RELEASE) PO PRN ×4 (00:05→16:16)
[2020-04-24] MEDS: HYDROCODONE/ACETAMINOPHEN 10/325 TAB PO PRN ×3 (04:56→19:40)
[2020-04-24 05:23] LABS: Partial Thromboplastin Ratio 2.4
[2020-04-24 05:29] LABS: Calcium 9.8 mg/dl (8.5-10.1); Creatinine Clr Calc Pharmacy 149.9 ml/min; Est GFR (African American) 104.9; Est GFR (Non-African American) 90.5; Potassium 4.4 mmol/L (3.5-5.1)
[2020-04-24 05:31] LABS: Partial Thromboplastin Time 66.3 Seconds (21.0-31.0)
[2020-04-24] MEDS: ALBUT/IPRATROP 3MG/0.5MG NEB 3 ML VIAL NEB SCH ×4 (06:49→19:20)
--- NOTE | 2020-04-24 07:25 | Surgery Progress Note ---
Date of Service April 24, 2020 Assessment & Plan (1) Rectus sheath hematoma: Rectus sheath hematoma symptoms resolving slowly No indication for surgical intervention Continue to monitor for recurrence since she is requiring anticoagulation as a result of PE and DVT Chest pain evaluation underway Admission and Anticipated Discharge Date Admission Date: April 10, 2020 Subjective Complaint of chest pain today Work-up underway EKG shows no changes Abdominal discomfort continues to decrease on a daily basis No nausea or vomiting Tolerating diet Physical Exam Gastrointestinal (Abdomen): Inspection/Auscultation: normal bowel sounds; abdomen not distended Percussion/Palpation: + abdomen tender (Lower portion near ecchymosis only) and abdomen soft Results & Data ([facility] Vital Signs (Past 12 Hours) Vital Signs Temp Pulse Pulse Pulse Resp BP Pulse Ox 04/24/20 06:51 76 18 88 L 04/24/20 05:07 89 22 154/82 H 90 04/24/20 01:17 80 04/24/20 00:02 88 16 93 04/23/20 23:06 97 H 04/23/20 23:02 36.7 C 82 19 148/69 H 95 04/23/20 21:28 87 Pulse Ox 04/24/20 06:51 04/24/20 05:07 04/24/20 01:17 90 04/24/20 00:02 04/23/20 23:06 95 04/23/20 23:02 04/23/20 21:28 95 (1) Rectus sheath hematoma Encounter type: subsequent encounter Qualified Code(s): S30.1XXD - Contusion of abdominal wall, subsequent encounter
[2020-04-24] MEDS: ALPRAZolam 0.5 MG TABLET PO PRN ×2 (07:30→16:16)
[2020-04-24] MEDS ORDERED: HYDROmorphone INJ 0.5 MG/0.5 ML SYR IV STA (07:38)
[2020-04-24] MEDS: UMECLIDINIUM BROMIDE 62.5MCG/BLISTER 7 PUFFS/INHALER INH SCH (07:53)
[2020-04-24] MEDS: FLUTICASONE/VILANTEROL 100/25MCG 14 PUFFS/INHALER INH SCH (07:54)
[2020-04-24] MEDS: FLUTICASONE PROPIONATE NA SPR 16 GM BTL NAE SCH (07:54)
[2020-04-24] MEDS: DICLOFENAC SOD 1% GEL 100 GM TUBE EXT SCH ×4 (07:54→20:33)
[2020-04-24] MEDS: FEXOFENADINE HCL 180 MG TAB PO SCH ×2 (07:55→20:32)
[2020-04-24] MEDS: MAGNESIUM OXIDE 400 MG TAB PO SCH ×2 (07:55→20:33)
[2020-04-24] MEDS: predniSONE 20 MG TAB PO SCH (07:55)
[2020-04-24] MEDS: BUMETANIDE 1 MG TAB PO SCH (07:55)
[2020-04-24] MEDS: POTASSIUM CHLORIDE 20 MEQ TABCR PO SCH (07:55)
[2020-04-24] MEDS: ERGOCALCIFEROL 50,000 UNITS CAP PO SCH (07:55)
[2020-04-24] MEDS: SPIRONOLACTONE 25 MG TAB PO SCH (07:56)
[2020-04-24] MEDS: NYSTATIN SUSP 500,000 U/5 ML UDC PO SCH ×4 (07:56→20:34)
[2020-04-24] MEDS: PANTOprazole 40 MG TAB PO SCH (07:56)
[2020-04-24] MEDS: POLYETHYLENE (MIRALAX) 17 GM PACK PO SCH ×2 (08:37→20:34)
[2020-04-24] MEDS: DOCUSATE SODIUM/SENNA 50/8.6MG TAB PO SCH (08:38)
[2020-04-24 09:08] LABS: INR 1.9 (0.9-1.1); Prothrombin Time 19.3 Seconds (9.0-12.0)
[2020-04-24] MEDS ORDERED: WARFARIN SOD 7.5 MG TAB PO ONE (09:31)
[2020-04-24] MEDS ORDERED: OPTIRAY 320 125ml IV ONE (10:51)
--- NOTE | 2020-04-24 11:13 | CT Scan Report ---
CT ANGIOGRAM OF THE CHEST CLINICAL HISTORY: New onset portable chest pain. History of recent pulmonary embolism. COMPARISON STUDY: 04/19/2020 TECHNIQUE: Following the IV administration of 118 mL of Optiray-320, CT angiogram of the thorax was p erformed from the thoracic inlet to the lung bases utilizing the pulmonary embolus protocol. Images a re reviewed in the axial, sagittal, and coronal planes. IV contrast was administered without complica tion. MIP imaging was performed. A dose lowering technique was utilized adhering to the principles o f ALARA. CT DOSE: 841.50 mGy.cm FINDINGS: No pathologically enlarged axillary mediastinal or hilar lymph nodes were visualized. There is mild ectasia of the ascending thoracic aorta which measures 38 mm. There is redemonstration of bilateral pulmonary artery filling defects indicative of bilateral pulmon dominik embolism. There is no evidence of right ventricular strain. There are no pleural effusions There is no focal pulmonary consolidation. There are mild dependent atelectatic changes. There is a 1 6mm left lower lobe lung cyst. IMPRESSION: 1. Redemonstration of bilateral pulmonary emboli 2. No evidence of focal pulmonary consolidation. No pleural effusions 3. No evidence of pathologic adenopathy ACT 112: Negative or not required by law. Electronically signed by: Yousif Marino M.D. 04/24/2020 11:12 AM
--- NOTE | 2020-04-24 13:23 | Electrocardiogram Report ---
Test Reason : Blood Pressure : / mmHG Vent. Rate : 077 BPM Atrial Rate : 077 BPM P-R Int : 142 ms QRS Dur : 078 ms QT Int : 408 ms P-R-T Axes : 061 000 039 degrees QTc Int : 461 ms Normal sinus rhythm Low voltage QRS Borderline ECG When compared with ECG of 18-MAR-2020 13:10, No significant change was found Confirmed by Ramon Black ([id number]) on 04/24/2020 1:22:58 PM Referred By: REFERRED SELF Confirmed By:Ramon Black
[2020-04-24] MEDS: HEPARIN SODIUM/DEXTROSE 25,000 UNITS/500 ML BAG IV SCH (13:47)
[2020-04-24 16:35] LABS: INR 1.8 (0.9-1.1)
[2020-04-24] MEDS: BACLOFEN 10 MG TAB PO SCH (20:33)
[2020-04-24] MEDS: CETIRIZINE HCL 10 MG TABLET PO SCH (20:33)
[2020-04-24] MEDS: MONTELUKAST SODIUM 10 MG TABLET PO SCH (20:34)
[2020-04-24] MEDS: ALPRAZolam 0.5 MG TABLET PO SCH (20:34)
[2020-04-24] MEDS: ZOLPIDEM TARTRATE 10 MG TAB PO PRN (20:40)
--- NOTE | 2020-04-24 21:56 | Hospitalist Progress Note ---
Date of Service April 24, 2020 Assessment & Plan (1) Chest pain: EKG w/o ST changes. Pain is reproducible on exam, although she states the pain feels deeper than the surface. I elected to obtain repeat CTA chest to r/o pulmonary infarction, etc. NO new PEs, infarction or areas of pneumonia. Obtained serial troponins today - negative. Suspect musculoskeletal in etiology. GI possible but unlikely. Pain meds prn. (2) Sleep-disordered breathing: qualifies for night-time O2 based on overnight oximetry study 2 L NC O2 will need formal sleep study post-d/c - likely to need CPAP or BiPAP (3) Acute blood loss anemia: 2nd rectus sheath hematoma - spontaneous - in setting of chronic coumadin use. s/p 2 units PRBCs earlier this admission. coumadin was appropriately held early on -- unfortunately developed recurrent VTE (DVT with PEs) while off anticoagulation. heparin drip resumed and coumadin restarted on 04/19. rechecked H/H today - stable once again; H/H trending up NO signs of recurrent bleeding (4) Rectus sheath hematoma: clinically no signs of recurrent bleeding. did not require surgical intervention. there was some concern early on in stay re: abdominal wall cellulitis and she received 7-day course of Ancef IV - now resolved. cont pain meds prn. cont heparin drip with coumadin cautiously. (5) Pulmonary emboli: Coumadin 10 mg - 04/19, 04/20 Coumadin 15mg on 04/21, 04/22 Coumadin 04/23 - none - INR had risen rapidly to 2.7 Coumadin 04/24 - 15mg INR today 1.9 and 1.8 oddly cont heparin drip INR in am Previous home dosin mg on Tuesdays and ; 10 mg all other days patient developed DVT with PEs when she was off coumadin appropriately due to rectus sheath hematoma (6) Acute DVT (deep venous thrombosis): Left peroneal vein acute heparin drip with coumadin daily INR (7) Supratherapeutic INR: early in stay - resolved (8) Anemia: Acute blood loss anemia 2nd rectus sheath hematoma lowest Hb 6.9 s/p 2 units PRBCs early in admission with stable H/H since h/o b12 def - s/p injection this admission (9) Severe persistent asthma, poorly-controlled: History of bronchial thermoplasty in 2015. Recently started dupilumab injections and received injection yesterday. Lungs clear; not in exacerbation. Cont prednisone 20mg/day. Cont nebs. Cont usual inhalers. O2 sats at rest and w/ activity wnl -- passed 2-step oxygen test today. (10) Obstructive sleep apnea of adult: Compliant with CPAP HS in the hospital, however she is still not completed a formal sleep study as an outpatient and does not have a CPAP at home. Overnight pulse oximetry test last pm shows need for nocturnal O2, 2 liters (11) GERD without esophagitis: in the event chest pain was reflux will increase her prilosec to 40mg at d/c (from 20mg) (12) Chronic pain: norco prn usually given for home use but will prescribe oxycodone for home use (limited supply) as she reports it is more effective for her abdominal pain, etc (13) Anxiety: Xanax per home dosing (14) Insomnia: zolpidem HS prn - she takes such at home (15) Edema: 2nd to chronic prednisone, PRBCs this admission, etc. - resolved continue bumex 2mg po daily continue aldactone continue KCl 20meq po daily continue Magnesium 400mg po bid repeat labs today acceptable obtain another BMP in am (16) Constipation: improved/resolved; continue Miralax bid, senna, colace (17) Acute respiratory failure with hypoxia: 2nd to PEs improved/resolved NC O2 weaned off (18) Candidiasis of mouth and esophagus: 2nd steroids improved/resolved cont nystatin solution - 5cc ac/hs (19) Hand cramps: 2nd to Fe Deficiency? venofer 200mg IV x 1 improved today repeat ferritin robust level - additional doses deferred K/Mag/Ca all normal (20) DVT prophylaxis: heparin w/ coumadin left message for on 04/22 and 04/23 if INR in am is 2 or higher can d/c home Admission and Anticipated Discharge Date Admission Date: April 10, 2020 Subjective patient states that about 0400 this am she developed pleuritic type chest discomfort. the pain was left of the sternum in a small area. it did not radiate. the pain would come on with deep breaths. night resident was called - EKG obtained - no ischemic changes. the pain was reproducible. she received both norco and then ultimately oxycodone with some relief of pain. I was called early this am by nursing that pain was still present -- gave dilaudid 0.5mg IV x 1. pain improved considerably. no GI symptoms although she burped once or twice in the midst of the pain in the middle of the night. no nausea or emesis. eating does not bother the pain. Review of Systems Constitutional: no fever Respiratory: no cough Cardiovascular: as per Subjective / HPI, + chest pain, + chest pain at rest and + dyspnea on exertion; no chest pain with activity, no radiating jaw, neck or arm pain, no dyspnea at rest, no orthopnea and no paroxysmal nocturnal dyspnea Gastrointestinal: no abdominal pain, no nausea and no vomiting Physical Exam Constitutional: + morbidly obese; no acute distress and no altered mental status ENMT: Mouth: + oral mucosal abnormality (thrush plaques improved ) Respiratory: normal respiratory effort, lungs clear to auscultation Auscultation: + diminished lung sounds (bases); no crackles and no wheezes Cardiovascular: Rate/Rhythm: regular rate and regular rhythm Heart Sounds: normal S1 and normal S2; no murmur Vessels: posterior tibial pulses present and dorsalis pedis pulses present; no JVD Extremities: no edema Chest (Breasts): Additional Comments: reproducible chest wall discomfort just to left of sternum; area of pain is 2-3 inches in size only Gastrointestinal (Abdomen): Inspection/Auscultation: + abdomen distended (no change ) and + abdominal wall ecchymosis (no change from yesterday's exam) Percussion/Palpation: abdomen nontender and no guarding Skin: + ecchymosis (severe- abdominal wall, flanks ) Psychiatric: A+Ox3, euthymic affect Results & Data Results & Data ([facility]) Vital Signs (Past 12 Hours) Vital Signs Temp Pulse Pulse Pulse Pulse Resp Resp 04/24/20 19:20 87 18 04/24/20 16:06 36.5 C 92 H 04/24/20 15:29 107 H 04/24/20 15:20 124 H 116 H 104 H 04/24/20 11:22 116 H 28 H Resp Resp BP Pulse Ox Pulse Ox Pulse Ox Pulse Ox 04/24/20 19:20 92 04/24/20 16:06 123/72 92 04/24/20 15:29 95 04/24/20 15:20 20 16 93 94 94 04/24/20 11:22 93 Laboratory Results Laboratory Results - last 24 hr 04/24/20 04/24/20 04/24/20 04:43 04:43 04:43 Hgb 10.6 L PT INR APTT 66.3 H* PTT Ratio 2.4 Sodium 135 L Potassium 4.4 Chloride 96 L Carbon Dioxide 35 H Anion Gap 4.0 BUN 12 Creatinine 0.78 Est Cr Clr Drug Dosing 149.9 Est GFR ( Amer) 104.9 Est GFR (Non-Af Amer) 90.5 BUN/Creatinine Ratio 15.0 Glucose 103 H Calcium 9.8 Troponin I 04/24/20 04/24/20 04/24/20 04:43 12:16 16:17 Hgb PT 19.3 H 18.0 H INR 1.9 H 1.8 H APTT PTT Ratio Sodium Potassium Chloride Carbon Dioxide Anion Gap BUN Creatinine Est Cr Clr Drug Dosing Est GFR ( Amer) Est GFR (Non-Af Amer) BUN/Creatinine Ratio Glucose Calcium Troponin I < 0.015 04/24/20 16:17 Hgb PT INR APTT PTT Ratio Sodium Potassium Chloride Carbon Dioxide Anion Gap BUN Creatinine Est Cr Clr Drug Dosing Est GFR ( Amer) Est GFR (Non-Af Amer) BUN/Creatinine Ratio Glucose Calcium Troponin I < 0.015 PG Care Time/CCT Total # of Minutes Spent Total Time Spent with Patient: Total time spent is greater than 50% in coordination of care (as documented) at patient's floor/unit and/or counseling patient: Coding Level of Care Code 92892 Subseq Hosp Care Lvl 3 Diagnoses Chest pain R07.9 Sleep-disordered breathing G47.30 Acute blood loss anemia D62 Rectus sheath hematoma S30.1XXD Encounter type: subsequent encounter Pulmonary emboli I26.99 Acute cor pulmonale presence: without acute cor pulmonale Chronicity: acute Pulmonary embolism type: unspecified Acute DVT (deep venous thrombosis) I82.452 Affected thrombotic vein of extremity: peroneal DVT location: lower extremity Laterality: left Supratherapeutic INR R79.1 Anemia D64.9 Anemia type: unspecified type Severe persistent asthma, poorly-controlled J45.51 Asthma complication type: with acute exacerbation Obstructive sleep apnea of adult G47.33 GERD without esophagitis K21.9 Chronic pain G89.29 Anxiety F41.9 Insomnia G47.00 Edema R60.9 Constipation K59.00 Acute respiratory failure with hypoxia J96.01 Candidiasis of mouth and esophagus B37.81; B37.0 Hand cramps R25.2 DVT prophylaxis Z29.9 (1) Anemia Anemia type: unspecified type Qualified Code(s): D64.9 - Anemia, unspecified (2) Acute DVT (deep venous thrombosis) Affected thrombotic vein of extremity: peroneal DVT location: lower extremity Laterality: left Qualified Code(s): I82.452 - Acute embolism and thrombosis of left peroneal vein (3) Severe persistent asthma, poorly-controlled Asthma complication type: with acute exacerbation Qualified Code(s): J45.51 - Severe persistent asthma with (acute) exacerbation (4) Pulmonary emboli Acute cor pulmonale presence: without acute cor pulmonale Chronicity: acute Pulmonary embolism type: unspecified Qualified Code(s): I26.99 - Other pulmonary embolism without acute cor pulmonale (5) Rectus sheath hematoma Encounter type: subsequent encounter Qualified Code(s): S30.1XXD - Contusion of abdominal wall, subsequent encounter
[2020-04-25] MEDS: OXYCODONE HCL IR 5 MG TAB (IMMEDIATE RELEASE) PO PRN ×2 (00:09→08:56)
[2020-04-25 06:17] LABS: INR 2.3 (0.9-1.1); Partial Thromboplastin Ratio 2.6
[2020-04-25 06:33] LABS: Calcium 9.6 mg/dl (8.5-10.1); Creatinine Clr Calc Pharmacy 144.4 ml/min; Est GFR (African American) 100.2; Est GFR (Non-African American) 86.5; Potassium 4.4 mmol/L (3.5-5.1)
[2020-04-25] MEDS: HEPARIN SODIUM/DEXTROSE 25,000 UNITS/500 ML BAG IV SCH (06:33)
[2020-04-25 06:40] LABS: Partial Thromboplastin Time 73.8 Seconds (21.0-31.0)
[2020-04-25] MEDS: ALBUT/IPRATROP 3MG/0.5MG NEB 3 ML VIAL NEB SCH (07:04)
--- NOTE | 2020-04-25 07:32 | Discharge Summary ---
Date of Service date of admission - April 08, 2020 date of discharge - April 25, 2020 Admission HPI Per Admitting Provider Jessica Sheppard is a 49-year-old female with steroid-dependent asthma, on chronic warfarin for history of PEs, and recent diagnosis of choledocholithiasis requiring ERCP who presents to the ER with burning sensation in her abdomen which started at 4am this morning. Severity 8/10. No radiation. No association with food. Worse on palpation. Very different pain to her recently diagnosed choledocholithiasis. She does note scraping past her walker to get into the pantry 2 days previously but otherwise no trauma. No fevers, chills. Admission CT abd/pelvis with a very large rectus sheath hematoma. Principal Diagnosis acute blood loss anemia 2nd to large rectus sheath hematoma Discharge Exam Constitutional + morbidly obese; no acute distress and no altered mental status ENMT Mouth: + oral mucosal abnormality (thrush plaques resolved ) Respiratory normal respiratory effort, lungs clear to auscultation Auscultation: + diminished lung sounds (bases); no crackles and no wheezes Cardiovascular Rate/Rhythm: regular rate and regular rhythm Heart Sounds: normal S1 and normal S2; no murmur Vessels: posterior tibial pulses present and dorsalis pedis pulses present; no JVD Extremities: no edema Gastrointestinal (Abdomen) Inspection/Auscultation: + abdomen distended (due to rectus sheath hematoma - mildly improved from prior exams) and + abdominal wall ecchymosis (resolving; flank ecchymosis also present ) Percussion/Palpation: abdomen nontender and no guarding Skin + ecchymosis (resolving slowly - abdominal wall, flanks ) Psychiatric A+Ox3, euthymic affect Discharge Data Allergies Allergy/AdvReac Type Severity Reaction Status Date / Time chlorhexidine Allergy Intermediate ITCHING Verified 04/08/20 12:50 budesonide Allergy Unknown Verified 04/08/20 12:50 azithromycin Allergy Verified 04/08/20 12:50 adhesive AdvReac Intermediate TAPE- Verified 04/08/20 12:50 SEVERE ITCHING clarithromycin AdvReac Intermediate NAUSEA Verified 04/08/20 12:50 clindamycin AdvReac Mild NAUSEA Verified 04/08/20 12:50 tramadol AdvReac Mild dizziness,S Verified 04/08/20 12:50 YNCOPE Consultations [facility] General Surgery PT, OT Wound care Respiratory Ordered Studies 04/08/20 11:33 CT abd pelvis IV con only Stat IMPRESSION: 1. 17 x 12 x 8 cm left rectus sheath hematoma 2. No evidence of bowel obstruction. No evidence of free air 3. No evidence of acute diverticulitis. 04/19/20 11:28 CT angio chest PE protocol Urgent IMPRESSION: 1. The examination is degraded by suboptimal contrast opacification of the pulmonary arteries. 2. Segmental and subsegmental filling defects are identified within the upper and lower lobe pulmonary arteries bilaterally. This is highly concerning for bilateral pulmonary embolus. 3. There is no airspace consolidation or pleural effusion. 04/19/20 15:00 US venous doppler LE BI Stat IMPRESSION: 1. There is deep venous thrombosis identified in the left lower extremity within the peroneal veins. 2. There is no sonographic evidence of deep venous thrombosis identified in the right lower extremity. 04/24/20 09:59 CT angio chest PE protocol Urgent IMPRESSION: 1. Redemonstration of bilateral pulmonary emboli 2. No evidence of focal pulmonary consolidation. No pleural effusions 3. No evidence of pathologic adenopathy 4. Mild ectasia of the ascending thoracis aorta which measures 38mm Echocardiogram: * normal LV function - EF >70% * normal RV function * normal valve function * mild pulmonary HTN Overnight oximetry study with significant number of desaturation episodes - need for 2 L NC O2 PRBCs x 2 units Hospital Course (1) Acute blood loss anemia: 2nd rectus sheath hematoma - spontaneous - in setting of chronic coumadin use. s/p 2 units PRBCs for lowest hemoglobin of 6.9. (baseline Hb 12-13 per records). Coumadin was appropriately held early on -- unfortunately developed recurrent VTE (DVT with PEs) while off anticoagulation (see below). Heparin drip resumed and coumadin restarted on 04/19/20. Following resumption of anticoagulation she had NO evidence of recurrent/worsening bleeding. Discharge hemoglobin was 10.6. (2) Rectus sheath hematoma: Spontaneous hematoma formation in the setting of chronic coumadin use for prior VTE. Admission INR was >5. Her coumadin was reversed in the setting of acute bleeding. General surgery was consulted and she did NOT need surgical intervention. There was some concern early on in stay that she had developed abdominal wall cellulitis and thus she received a 7-day course of Ancef IV. At time of discharge there are no signs of abdominal wall infection. Pain was an issue throughout her stay requiring a combination of IV and PO narcotics. She was given #20 tabs of oxycodone to use PRN post-discharge. As noted above a heparin drip with coumadin were cautiously resumed on 04/19/2020 and she had no signs or symptoms of recurrent/worsening bleeding following such. (3) Pulmonary emboli: Unfortunately the patient developed a LLE DVT with PEs while her anticoagulation was appropriately being held in the face of her acute blood loss anemia from the large rectus sheath hematoma. Heparin drip with coumadin was started on 04/19/2020. Coumadin dosing was as follows -- Coumadin 10mg - 04/19, 04/20 Coumadin 15mg - 04/21, 04/22 Coumadin 04/23 - none given - INR had risen rapidly to 2.7 that day Coumadin 04/24 - 15mg INR AM of 04/25/20 -- 2.3; heparin drip discontinued at that time. Previous home dosin mg on Tuesdays and ; 10 mg all other days. Patient to resume this regimen upon discharge. Has home INR monitor. She will check her INRs on Wednesday, 04/26 and Wednesday, 04/27. Any issues will be reported to her coumadin provider and PCP, Dr العراقي. Patient will likely need LIFELONG coumadin as this is her 2nd significant VTE event. (4) Acute respiratory failure with hypoxia: 2nd to PEs. Resolved, with NC O2 weaned off prior to discharge. Passed 2-step oxygen test fully on 04/24/2020. (5) Acute DVT (deep venous thrombosis): Left peroneal vein. acute. see above in "pulmonary emboli." Discharge INR 2.3. (6) Chest pain: AM of 04/24/2020. EKG w/o ST changes. Serial troponins negative. Repeat CTA chest on 04/24/20 without pulmonary infarction, new PEs, or other pathology. Pain was reproducible on exam. Suspect musculoskeletal in etiology. Pain largely resolved by afternoon of 04/24/2020. GI etiology possible but unlikely. (7) Sleep-disordered breathing: Qualified for night-time O2 based on overnight oximetry study. 2 L NC O2 with sleep. Will need formal sleep study post-d/c - likely to need CPAP or BiPAP. (8) Obstructive sleep apnea of adult: Was compliant with CPAP HS in the hospital and she reported she felt significantly better on it. Needs formal sleep study post-discharge. Overnight pulse oximetry test showed need for nocturnal O2, 2 liters. (9) Supratherapeutic INR: At time of admission - resolved; did not recur. (10) Anemia: Acute blood loss anemia 2nd rectus sheath hematoma. Lowest Hb 6.9. s/p 2 units PRBCs early in admission with stable H/H since. s/p venofever 200mg IV x 1 this admission along with B12 injection. Discharge Hb 10.6. She should continue B12 injections as outpatient as previous. (11) Severe persistent asthma, poorly-controlled: History of bronchial thermoplasty in 2015. Recently started dupilumab injections and received injection on 04/22/2020. Steroid dependent -- Cont prednisone 20mg/day. Cont nebs. Cont usual inhalers. Passed 2-step oxygen test on 04/24/2020. Follow-up with [facility] Pulmonary as scheduled. (12) GERD without esophagitis: In the event her chest pain episode was reflux will increase her prilosec to 40mg at d/c (from 20mg). (13) Chronic pain: N prn usually given for home use by her outpatient providers. However, prescribed oxycodone for home use (limited supply) at discharge as she reported that it was more effective for her abdominal pain, etc. (14) Anxiety: Xanax per home dosing (15) Insomnia: zolpidem HS prn (16) Edema: 2nd to chronic prednisone, PRBCs this admission, etc. - resolved. lasix changed to bumex this admission (patient felt that lasix was causing cramps). continue bumex 2mg po daily. continue aldactone. continue KCl 20meq po daily. continue Magnesium 400mg po daily. labs were acceptable at discharge. (17) Constipation: improved/resolved; continue Miralax, senna, colace at discharge. (18) Candidiasis of mouth and esophagus: 2nd steroids. improved/resolved. cont nystatin solution - 5cc ac/hs for another week at discharge. (19) Hand cramps: 2nd to Fe Deficiency? venofer 200mg IV x 1 given this admission with resolution of those cramps. repeat ferritin level post-venofer was 340. K/Mag/Ca all normal. (20) Ectasis aorta: Incidental note of minimal ascending aortic enlargement -- 3.8cm. Recommend yearly echo or CT to monitor this. Total Time Total Time Spent Total Time Spent (In Minutes): 45 Total Time Includes: Examination of the Patient, Discharge Planning, Medication Reconciliation and Communication With Other Providers Discharge Plan Discharge Items Patient Disposition: Home - Self-Care Reason For Visit: abdominal pain Discharge Diagnosis: 1. abdominal pain due to rectus sheath (abdominal wall) hematoma 2. new left leg DVT 3. new pulmonary emboli 4. severe asthma 5. sleep apnea - overnight oximetry study showing need for 2 liters of oxygen with sleep; formal sleep study needed as outpatient 6. chest pain - no evidence of heart attack or new pulmonary emboli in lungs; either musculoskeletal or gastrointestinal; likely the pain was musculoskeletal Activity: As commented below Activity Comment: gradually increase your activities over the next 5-7 days Driving/Machine Use: no driving if you are taking oxycodone or hydrocodone Non-emergency contact: Primary Care Provider and Sales Representative [employer] Call non-emergency contact if: you have any medication questions, your symptoms worsen, your pain is not controlled and you have a fever Follow-up/Referrals: Raj Mejia PA-C [Physician Negative Cleaner] - 04/25/20 Pro,Ramon Mcguire MD [Primary Care Provider] - 05/01/20 10:15 am (see Dr العراقي within 1 week ) Diet: Heart Healthy Addtl Attending Provider Instructions: You were admitted to the hospital because of abdominal pain due to a large abdominal wall hematoma (rectus sheath hematoma). This occurred in the setting of you being on coumadin. You were seen by general surgery and surgery was not recommended for the hematoma. Your coumadin had to be held because of the bleeding, and unfortunately you developed a left leg DVT with pulmonary emboli (blood clots in the lungs) while off of your coumadin. We cautiously placed you on a heparin drip and resumed your coumadin. Fortunately your blood counts stayed stable for the remainder of your stay. You received 1 round of IV iron, a b12 injection, and your dupilumab. Your hemoglobin on day of discharge is 10.6. You had an episode of chest discomfort that was worsened by taking deep breaths on the morning of 04/24/2020. A repeat CAT scan of the lungs did NOT show fluid, pneumonia, or worsening of your blood clots. Blood work for your heart was normal. It is difficult to know what caused the pain but it is possible that it was a chest wall muscle that was sore. Your oximetry study showed that your oxygen levels drop throughout the night while sleeping highly suggestive of sleep apnea. You can use 2 liters of oxygen while sleeping until you have a formal sleep study. You ultimately will likely need CPAP at bedtime. Follow-up - see separate section Recommendations - 1. discontinue your furosemide; in its place take BUMETANIDE 2mg every morning for fluid retention. 2. take potassium and magnesium supplements daily. 3. for thrush (yeast) of the mouth take nystatin for 1 week as directed. 4. for pain - take oxycodone 5mg, 1-2 tablets every [address] as needed[address] Do not drive while taking this medication. Do not drink alcohol while taking this medication. Do not TAKE hydrocodone while taking oxycodone. Know that the oxycodone will cause constipation. 5. resume your normal coumadin (warfarin) schedule on April 25. You received 15mg of coumadin the AM of 04/24 at the hospital. Your INR today, 04/25, is 2.3. Your INR goal range is between 2 and 3. As a reminder your prior coumadin schedule was - * 15mg Wednesday and * 10mg Wed, Wed, Wednesday, Sat, Sun 6. may use a heating pad to your chest, back or abdomen for soreness. 7. I have increased your omeprazole reflux medication to 40mg a day in the event some of your chest pain was reflux disease. New prescription sent to your pharmacy for you. Return to [facility] if - * you have fevers over 100.4 degrees * you have worsening shortness of breath * you have worsening chest pain * you have any concerns of bleeding * any other concerns Pending Studies at Discharge: No Stand-Alone Forms: My [facility], Work/School Release (Inpt), Smoking Cessation Medications and DC Order Prescriptions: New (DME) Oxygen Home Liters Per Minute See Rx Instructions .ROUTE .MEDSUPPLY Qty: 1 RF: 0 nystatin 100,000 unit/mL Suspension 5 ml PO QID 7 Days Qty: 140 RF: 0 polyethylene glycol 3350 [Miralax] 17 gram Powder In Packet 17 g PO DAILY Qty: 1 RF: 0 magnesium oxide 400 mg (241.3 mg magnesium) Tablet 400 mg PO DAILY Qty: 30 RF: 1 bumetanide 2 mg tablet 2 mg PO DAILY Qty: 30 RF: 1 oxycodone 5 mg tablet 5 - 10 mg PO Q4H PRN (Reason: pain) Qty: 20 RF: 0 omeprazole 40 mg capsule,delayed release(DR/EC) 40 mg PO QAM Qty: 30 RF: 2 Continued (DME) BD Integra Syringe 3 mL 25 gauge x 1" syringe See Rx Instructions .ROUTE .MEDSUPPLY Qty: 12 RF: 3 alprazolam 1 mg tablet 1 mg PO TID PRN (Reason: anxiety) Qty: 90 RF: 0 spironolactone [Aldactone] 50 mg tablet 50 mg PO DAILY Qty: 30 RF: 2 alprazolam [Xanax] 2 mg tablet 2 mg PO HS Qty: 90 RF: 0 zolpidem 6.25 mg tablet,ext release multiphase 6.25 mg PO HS Qty: 30 RF: 0 ipratropium-albuterol 0.5 mg-3 mg(2.5 mg base)/3 mL solution for nebulization 3 ml INHALATION Q4H Qty: 540 RF: 3 Dupixent 300 mg/2 mL syringe 300 mg SQ UD RF: 0 (DME) misc Misc See Rx Instructions .ROUTE .MEDSUPPLY Qty: 1 RF: 0 baclofen 10 mg tablet 20 mg PO HS RF: 0 warfarin 10 mg tablet 15 mg PO TUTH RF: 0 warfarin 10 mg tablet 10 mg PO SUMOWEFRSA RF: 0 cyanocobalamin (vitamin B-12) 1,000 mcg/mL solution 1,000 mcg IM TH RF: 0 montelukast [Singulair] 10 mg tablet 10 mg PO HS RF: 0 ergocalciferol (vitamin D2) [Vitamin D2] 1,250 mcg (50,000 unit) capsule 50,000 unit PO WE RF: 0 cetirizine [Zyrtec] 10 mg Tablet 10 mg PO HS RF: 0 diclofenac sodium [Voltaren] 1 % Gel 4 g EXT QID Qty: 100 RF: 0 potassium chloride 20 mEq tablet extended release 20 meq PO DAILY Qty: 30 RF: 0 fexofenadine [Susanne Allergy] 180 mg Tablet 180 mg PO BID RF: 0 fluticasone propionate [Flonase Allergy Relief] 50 mcg/actuation [place]rick,Suspension 1 spray intranasal DAILY RF: 0 Combivent Respimat 20-100 mcg/actuation Mist 2 puff INHALATION Q2H PRN (Reason: SOB) RF: 0 Spiriva Respimat 1.25 mcg/actuation Mist 1 puff INHALATION BID RF: 0 prednisone 20 mg tablet 20 mg PO DAILY RF: 0 Discontinued omeprazole 20 mg tablet,delayed release (DR/EC) 20 mg PO QAM Qty: 30 RF: 5 hydrocodone-acetaminophen [[place]] 10-325 mg tablet 1 tab PO Q6H PRN (Reason: Pain) Qty: 20 RF: 0 furosemide [Lasix] 40 mg tablet 80 mg PO DAILY Qty: 60 RF: 0 naproxen sodium [Aleve] 220 mg capsule 440 mg PO BID RF: 0 Discharge Orders: Discharge Order (Routine); Ordered 04/25/20 Ordered By: David Oviedo/Other Patient Handouts: 5 Steps for Eating Healthier, What Are Snoring and Sleep Apnea?, After Surgery for Sleep Apnea, Overview of Sleep Problems Admission Data Admit Date/Time: 04/10/20 18:07 Attending Provider: David Malone Admit Provider: David Rueda Primary Care Provider: Ramon العراقي Other Providers: Michael Davila ; Anjmu Hernadez Other Interventions: Discharge Summary Assessment (RN) Last Done: 04/25/20 09:45 Coding Level of Care Code D/C Day Management >30 mins Diagnoses Acute blood loss anemia D62 Rectus sheath hematoma S30.1XXD Encounter type: subsequent encounter Pulmonary emboli I26.99 Acute cor pulmonale presence: without acute cor pulmonale Chronicity: acute Pulmonary embolism type: unspecified Acute respiratory failure with hypoxia J96.01 Acute DVT (deep venous thrombosis) I82.452 Affected thrombotic vein of extremity: peroneal DVT location: lower extremity Laterality: left Chest pain R07.9 Sleep-disordered breathing G47.30 Obstructive sleep apnea of adult G47.33 Supratherapeutic INR R79.1 Anemia D64.9 Anemia type: unspecified type Severe persistent asthma, poorly-controlled J45.51 Asthma complication type: with acute exacerbation GERD without esophagitis K21.9 Chronic pain G89.29 Anxiety F41.9 Insomnia G47.00 Edema R60.9 Constipation K59.00 Candidiasis of mouth and esophagus B37.81; B37.0 Hand cramps R25.2 Ectasis aorta I77.819
[2020-04-25] MEDS: FLUTICASONE/VILANTEROL 100/25MCG 14 PUFFS/INHALER INH SCH (08:57)
[2020-04-25] MEDS: UMECLIDINIUM BROMIDE 62.5MCG/BLISTER 7 PUFFS/INHALER INH SCH (08:57)
[2020-04-25] MEDS: FLUTICASONE PROPIONATE NA SPR 16 GM BTL NAE SCH (08:57)
[2020-04-25] MEDS: NYSTATIN SUSP 500,000 U/5 ML UDC PO SCH (08:58)
[2020-04-25] MEDS: MAGNESIUM OXIDE 400 MG TAB PO SCH (08:59)
[2020-04-25] MEDS: SPIRONOLACTONE 25 MG TAB PO SCH (08:59)
[2020-04-25] MEDS: FEXOFENADINE HCL 180 MG TAB PO SCH (08:59)
[2020-04-25] MEDS: PANTOprazole 40 MG TAB PO SCH (08:59)
[2020-04-25] MEDS: predniSONE 20 MG TAB PO SCH (08:59)
[2020-04-25] MEDS: POTASSIUM CHLORIDE 20 MEQ TABCR PO SCH (08:59)
[2020-04-25] MEDS: DICLOFENAC SOD 1% GEL 100 GM TUBE EXT SCH (08:59)
[2020-04-25] MEDS: BUMETANIDE 1 MG TAB PO SCH (08:59)
[2020-04-25] MEDS: POLYETHYLENE (MIRALAX) 17 GM PACK PO SCH (09:00)
[2020-04-25] MEDS: DOCUSATE SODIUM/SENNA 50/8.6MG TAB PO SCH (09:00)
== END 2020-04-25 12:22 | disposition home or self-care (01) | DRG 813 ==
LOC: 2W 11:11 → ED 11:11 → SUATTDRO 16:00 → 2W 17:17 → SUATTDRO 04-10 18:07 → 3E 04-20 14:28

== ENCOUNTER 2021-05-22 16:03 | Observation (INO) ==
[2021-05-22] MEDS ORDERED: methylPREDNISolone 125 MG/2 ML VIAL IV STA (16:08)
[2021-05-22] MEDS ORDERED: ALBUT/IPRATROP 3MG/0.5MG NEB 3 ML VIAL NEB ONE (16:08)
[2021-05-22] MEDS ORDERED: guaiFENesin 600 MG TABCR PO STA (16:08)
[2021-05-22] MEDS ORDERED: SODIUM CHLORIDE 0.9% 500 ML IV ONE (16:12)
[2021-05-22] MEDS: MAGNESIUM SULFATE / D5W 1 GM/100 ML BAG IV SCH ×2 (16:28→16:33)
[2021-05-22] MEDS ORDERED: ONDANSETRON INJ 2 MG/ML 2 ML VIAL IV STA (16:30)
[2021-05-22] MEDS ORDERED: FAMOTIDINE 20MG IV PUSH 20 MG/5 ML SYR IV STA (16:30)
[2021-05-22 17:04] LABS: Basophils # (auto) 0.01 K/uL (0-0.2); Basophils % (auto) 0.1 %; Hematocrit (blood only) 41.9 % (37-47); Hemoglobin 13.8 g/dL (12.0-16.0); Immature Granulocytes # (auto) 0.06 K/uL (0.00-0.02); Immature Granulocytes % (auto) 0.4 %; Lymphocytes # (auto) 4.87 K/uL (1.2-3.4); Lymphocytes % (auto) 28.6 %; Mean Corpuscular Hemoglobin 29.2 pg (25-34); Mean Corpuscular Hgb Conc 32.9 g/dL (32-36); Mean Corpuscular Volume 88.8 fL (80-100); Mean Platelet Volume 10.3 fL (7.4-10.4); Monocytes # (auto) 0.76 K/uL (0.11-0.59); Monocytes % (auto) 4.5 %; Neutrophils # (auto) 11.32 K/uL (1.4-6.5); Neutrophils % (auto) 66.4 %; Platelet Count 437 K/uL (130-400); RDW Coefficient of Variation 16.3 % (11.5-14.5); RDW Standard Deviation 52.7 fL (36.4-46.3); Red Blood Count 4.72 M/uL (4.2-5.4); White Blood Count 17.02 K/uL (4.8-10.8)
[2021-05-22 17:08] LABS: Pregnancy Test, Serum Negative (Negative)
[2021-05-22 17:13] LABS: Alanine Aminotransferase 27 U/L (12-78); Albumin Level 3.3 gm/dl (3.4-5.0); Aspartate Aminotransferase 14 U/L (15-37); BUN Creatinine Ratio 11.5 (10-20); Bilirubin Direct < 0.1 mg/dl (0-0.2); Blood Urea Nitrogen 11 mg/dl (7-18); Calcium 9.4 mg/dl (8.5-10.1); Carbon Dioxide 29 mmol/L (21-32); Chloride 99 mmol/L (98-107); Creatinine Clr Calc Pharmacy 120.3 ml/min; Est GFR (African American) 81.1 ml/min; Est GFR (Non-African American) 69.9 ml/min; Glucose 142 mg/dl (70-99); Lipase 88 U/L (73-393); Magnesium 2.2 mg/dl (1.8-2.4); Potassium 3.5 mmol/L (3.5-5.1); Sodium 137 mmol/L (136-145)
[2021-05-22 17:14] LABS: Prothrombin Time 60.2 Seconds (9.0-12.0)
[2021-05-22 17:18] LABS: INR 6.9 (0.9-1.1)
[2021-05-22 17:22] LABS: Albumin Globulin Ratio 0.7 (0.9-2); Alkaline Phosphatase 78 U/L (45-117); Bilirubin,Total 0.3 mg/dl (0.2-1); NT Pro B Type Natriuretic Pept 155 pg/ml (0-450); Phosphorus 1.9 mg/dl (2.5-4.9); Thyroid Stimulating Hormone 0.519 uIu/ml (0.300-4.500); Total Protein 8.3 gm/dl (6.4-8.2); Troponin I < 0.015 ng/ml (0-0.045)
[2021-05-22] MEDS ORDERED: HYDROcodone/ACETAMINOPHEN 10/325 TAB PO STA (17:32)
--- NOTE | 2021-05-22 18:06 | XRay Report ---
XR chest 1V portable HISTORY: Atypical Chest Pain COMPARISON: Chest 06/29/2020. FINDINGS: No pneumothorax. No pleural effusions. The cardiac silhouette remains mildly enlarged. Stab le interstitial prominence is likely technical given the patient's large body habitus. A few left bas ilar linear densities likely represent subsegmental atelectasis. This also remains unchanged. No new focal lung consolidations to suggest pneumonia. No evidence for pulmonary edema. IMPRESSION: No significant change compared to the prior study. No acute process. Stable mild cardiomegaly. ACT 112: Negative or not required by law. Electronically signed by: Dameon Hawthorne M.D. 05/22/2021 6:05 PM
[2021-05-22] MEDS ORDERED: DOXYCYCLINE HYCLATE 100 MG in DEXTROSE 5% 100 ML IV STA (18:07)
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
[2021-05-22] MEDS ORDERED: MoRPHine SULFATE 4 MG/ML 1 ML CARP\\VIAL IV STA (22:10)
[2021-05-22] MEDS ORDERED: DICLOFENAC SOD 1% GEL 100 GM TUBE EXT PRN (22:18)
[2021-05-22] MEDS: ALBUT/IPRATROP 3MG/0.5MG NEB 3 ML VIAL NEB SCH (22:55)
[2021-05-22] MEDS: ZOLPIDEM TARTRATE 10 MG TAB PO PRN (23:54)
[2021-05-22] MEDS: HYDROcodone/ACETAMINOPHEN 10/325 TAB PO PRN (23:54)
[2021-05-22] MEDS: metroNIDAZOLE 0.75% TOPICAL GEL 45 GM TUBE TOP SCH (23:55)
[2021-05-22] MEDS: FEXOFENADINE HCL 180 MG TAB PO SCH (23:56)
[2021-05-22] MEDS: BACLOFEN 20 MG TAB PO SCH (23:56)
[2021-05-22] MEDS: MAGNESIUM OXIDE 400 MG TAB PO SCH (23:57)
[2021-05-22] MEDS: CETIRIZINE HCL 10 MG TABLET PO SCH (23:57)
[2021-05-22] MEDS: MONTELUKAST SODIUM 10 MG TABLET PO SCH (23:57)
[2021-05-23] MEDS: ALPRAZolam 0.5 MG TABLET PO PRN ×3 (00:45→22:43)
[2021-05-23] MEDS: ALBUT/IPRATROP 3MG/0.5MG NEB 3 ML VIAL NEB SCH ×6 (02:22→22:02)
[2021-05-23 07:06] LABS: Basophils # (auto) 0.01 K/uL (0-0.2); Basophils % (auto) 0.1 %; Hematocrit (blood only) 40.6 % (37-47); Hemoglobin 13.1 g/dL (12.0-16.0); Immature Granulocytes # (auto) 0.03 K/uL (0.00-0.02); Immature Granulocytes % (auto) 0.2 %; Lymphocytes # (auto) 1.44 K/uL (1.2-3.4); Lymphocytes % (auto) 10.4 %; Mean Corpuscular Hemoglobin 28.7 pg (25-34); Mean Corpuscular Hgb Conc 32.3 g/dL (32-36); Mean Platelet Volume 9.6 fL (7.4-10.4); Monocytes # (auto) 0.38 K/uL (0.11-0.59); Monocytes % (auto) 2.8 %; Neutrophils # (auto) 11.94 K/uL (1.4-6.5); Neutrophils % (auto) 86.5 %; Platelet Count 384 K/uL (130-400); RDW Coefficient of Variation 16.3 % (11.5-14.5); RDW Standard Deviation 53.2 fL (36.4-46.3); Red Blood Count 4.56 M/uL (4.2-5.4)
[2021-05-23 07:27] LABS: INR 4.4 (0.9-1.1); Prothrombin Time 39.5 Seconds (9.0-12.0)
[2021-05-23 07:53] LABS: BUN Creatinine Ratio 14.1 (10-20); Est GFR (African American) 109.2 ml/min; Est GFR (Non-African American) 94.3 ml/min; Potassium 4.3 mmol/L (3.5-5.1)
[2021-05-23] MEDS: HYDROcodone/ACETAMINOPHEN 10/325 TAB PO PRN ×2 (08:06→15:56)
[2021-05-23] MEDS: DOXYCYCLINE HYCLATE 100 MG in DEXTROSE 5% 100 ML IV SCH ×2 (08:07→20:03)
[2021-05-23] MEDS: FLUTICASONE/VILANTEROL 200/25MCG 14 PUFFS/INHALER INH SCH (08:13)
[2021-05-23] MEDS: guaiFENesin 600 MG TABCR PO SCH ×2 (08:13→20:12)
[2021-05-23] MEDS: PANTOprazole 40 MG TAB PO SCH (08:14)
[2021-05-23] MEDS: FLUTICASONE PROPIONATE NA SPR 16 GM BTL NAE SCH (08:14)
[2021-05-23] MEDS: FEXOFENADINE HCL 180 MG TAB PO SCH ×2 (08:14→20:10)
[2021-05-23] MEDS: POTASSIUM CHLORIDE CRTAB 20 MEQ TABCR PO SCH (08:14)
[2021-05-23] MEDS: metroNIDAZOLE 0.75% TOPICAL GEL 45 GM TUBE TOP SCH ×2 (08:15→20:13)
[2021-05-23] MEDS: SPIRONOLACTONE 100 MG TAB PO SCH (08:15)
[2021-05-23] MEDS: UMECLIDINIUM BROMIDE 62.5MCG/BLISTER 7 PUFFS/INHALER INH SCH (08:15)
[2021-05-23] MEDS: MAGNESIUM OXIDE 400 MG TAB PO SCH ×2 (08:16→20:11)
[2021-05-23] MEDS: POLYETHYLENE (MIRALAX) 17 GM PACK PO SCH (08:16)
[2021-05-23] MEDS: BUMETANIDE 2 MG in SYRINGE 0 ML IV SCH ×2 (08:22→16:04)
[2021-05-23] MEDS ORDERED: CYANOCOBALAMIN 1000 MCG/ML VIAL IM SCH (09:00)
[2021-05-23] MEDS ORDERED: BUMETANIDE 1 MG TAB PO SCH (09:00)
[2021-05-23] MEDS ORDERED: methylPREDNISolone 60 MG in SYRINGE 0 ML IV SCH (10:00)
--- NOTE | 2021-05-23 10:13 | Hospitalist Progress Note ---
Date of Service May 23, 2021 Assessment & Plan (1) Asthma exacerbation: Plan: Per outpatient pulmonology note: moderate obstructive disease on testing in 2017 Solu-medrol 60mg IV TID was ordered. Will change this to 40 mg of prednisone daily starting tomorrow. We will give 5 days and then decrease to 20 mg daily maintenance dose Duonebs q4H as needed for shortness of breath or wheezes Continue her maintenance inhalers with Symbicort and Spiriva or hospital f ormulary equivalent Continue montelukast, fexofenadine and cetirizine Currently on Fasenra injections as outpatient as ordered by Dr. Murphy in [facility]. Continue to manage outpatient Adequate airway movement in the base of the lungs. Some faint bilateral upper field wheezes. No stridor appreciated Oxygenation adequate. Possible discharge home tomorrow (2) Acute and chronic respiratory failure: Plan: Patient uses supplemental oxygen 2 L/min via nasal cannula at home with CPAP Patient also uses supplemental oxygen throughout the day as needed At this point, would bleeding oxygen with CPAP at night. Keep SaO2 greater than 90% during the daytime. Encourage ambulation and out of bed to chair (3) Leukocytosis: Plan: No clear indication of infection Most likely secondary to steroids Continue to follow vital signs and CBC (4) Right-sided heart failure: Plan: Fluid retention suspect from right sided heart failure and steroids. Echocardiogram 04/19/2020 with preserved left ventricular ejection fraction greater than 70%. Right ventricle grossly normal size. Right ventricular systolic function was normal. Systolic pressure was elevated 30 to 40 mmHg Continue spironolactone 100mg PO daily Switch bumex 2mg PO daily to 2mg IV BID until Cr bumps Low Na diet Strict I&Os Daily weights BNP normal but may be artificially low in setting of high BMI (5) Obstructive sleep apnea hypopnea, mild: Plan: CPAP at night and during the day as needed. Outpatient management (6) Nocturnal hypoxia: Plan: Chronically on 2LPM O2 @ night to be bled in through CPAP (7) Anxiety: Plan: Continue her home dose Xanax. (8) Chronic back pain: Plan: Continue her routine hydrocodone. Outpatient management (9) GERD (gastroesophageal reflux disease): Plan: Switch omeprazole for pantoprazole per hospital formulary (10) Morbid obesity with BMI of 50.0-59.9, adult: Plan: Difficulty losing weight due to chronic prednisone use. (11) Supratherapeutic INR: Plan: INR 6.9. On admission. She reports eating more salads this week. INR this morning is 4.4 We will continue to hold Coumadin per protocol Therapeutic range of 2.0-3.0 (12) Recurrent pulmonary emboli: Plan: Chronic warfarin use. As above (13) Blurring of vision: Plan: Patient advised to see a technical operations manager on discharge. There is concern as an outpatient that she had infection. Advised patient should not be a delay in follow-up care on discharge Plan: VTE Prophylaxis - warfarin with hold parameters Diet - heart healthy, low Na Disposition -downgrade to [facility] Admission and Anticipated Discharge Date Admission Date: May 22, 2021 Subjective Attending: Dr. Xiong Review of Systems Review of Systems: All systems reviewed & are unremarkable except as noted in Subjective Results & Data Results & Data ([facility]) Vital Signs (Past 12 Hours) Vital Signs Temp Pulse Pulse Resp BP Pulse Ox 05/23/21 07:51 36.5 C 71 140/85 05/23/21 07:39 66 16 99 05/23/21 04:00 36.7 C 74 20 155/81 H 97 05/23/21 02:23 77 78 18 98 05/23/21 00:08 78 18 98 05/22/21 22:55 89 16 98 05/22/21 22:43 36.4 C L 90 24 143/78 H 100 05/22/21 22:33 36.4 C L 90 14 143/78 H 99 05/22/21 22:18 90 05/22/21 22:00 81 30 H 97 Laboratory Results INR 4.4 (0.9-1.1) H 05/23/21 06:47 05/23/21 06:47 05/23/21 06:47 05/22/21 16:40 Troponin I < 0.015 Diagnostic Findings No further diagnostic testing PG Care Time/CCT Total # of Minutes Spent Total Time Spent with Patient: Total time spent is greater than 50% in coordination of care (as documented) at patient's floor/unit and/or counseling patient:30 minutes Coding Level of Care Code 17037 Subseq Hosp Care Lvl 2 Diagnoses Asthma exacerbation J45.901 Acute and chronic respiratory failure J96.20 Respiratory failure complication: unspecified whether with hypoxia or hypercapnia Leukocytosis D72.829 Right-sided heart failure I50.810 Obstructive sleep apnea hypopnea, mild G47.33 Nocturnal hypoxia G47.34 Anxiety F41.9 Chronic back pain M54.9; G89.29 Back pain laterality: left Back pain location: back pain in unspecified location GERD (gastroesophageal reflux disease) K21.9 Morbid obesity with BMI of 50.0-59.9, adult E66.01; Z68.43 Supratherapeutic INR R79.1 Recurrent pulmonary emboli I26.99 Blurring of vision H53.8 Time Spent (min) 30 (1) Acute and chronic respiratory failure Respiratory failure complication: unspecified whether with hypoxia or hypercapnia Qualified Code(s): J96.20 - Acute and chronic respiratory failure, unspecified whether with hypoxia or hypercapnia (2) Chronic back pain Back pain laterality: left Back pain location: back pain in unspecified location Qualified Code(s): M54.9 - Dorsalgia, unspecified; G89.29 - Other chronic pain
--- NOTE | 2021-05-23 12:34 | Electrocardiogram Report ---
Test Reason : Blood Pressure : / mmHG Vent. Rate : 105 BPM Atrial Rate : 105 BPM P-R Int : 122 ms QRS Dur : 074 ms QT Int : 348 ms P-R-T Axes : 060 017 063 degrees QTc Int : 459 ms Poor data quality, interpretation may be adversely affected Sinus tachycardia with Premature supraventricular complexes Low voltage QRS Poor R wave progression, consider anterior ID vs. lead placement vs. LVH Abnormal ECG When compared with ECG of 29-JUN-2020 14:46, Premature supraventricular complexes are now Present Confirmed by Ramon Black ([id number]) on 05/23/2021 12:33:38 PM Referred By: REFERRED SELF Confirmed By:Ramon Black
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
[2021-05-23] MEDS ORDERED: ALBUTEROL HFA 8 GM INHALER INH PRN (18:07)
[2021-05-23] MEDS ORDERED: ACETAMINOPHEN 500 MG TAB PO ONE (18:42)
[2021-05-23] MEDS ORDERED: MoRPHine SULFATE 2 MG/ML CARP IV ONE (20:00)
[2021-05-23] MEDS: CETIRIZINE HCL 10 MG TABLET PO SCH (20:10)
[2021-05-23] MEDS: BACLOFEN 20 MG TAB PO SCH (20:10)
[2021-05-23] MEDS: MONTELUKAST SODIUM 10 MG TABLET PO SCH (20:11)
[2021-05-23] MEDS: ZOLPIDEM TARTRATE 10 MG TAB PO PRN (22:43)
[2021-05-24] MEDS: HYDROcodone/ACETAMINOPHEN 10/325 TAB PO PRN ×2 (01:31→08:55)
[2021-05-24] MEDS: ALBUT/IPRATROP 3MG/0.5MG NEB 3 ML VIAL NEB SCH ×4 (03:45→15:10)
[2021-05-24] MEDS: FLUTICASONE PROPIONATE NA SPR 16 GM BTL NAE SCH (08:41)
[2021-05-24] MEDS: FLUTICASONE/VILANTEROL 200/25MCG 14 PUFFS/INHALER INH SCH (08:43)
[2021-05-24] MEDS: metroNIDAZOLE 0.75% TOPICAL GEL 45 GM TUBE TOP SCH (08:45)
[2021-05-24] MEDS: UMECLIDINIUM BROMIDE 62.5MCG/BLISTER 7 PUFFS/INHALER INH SCH (08:46)
[2021-05-24] MEDS: POLYETHYLENE (MIRALAX) 17 GM PACK PO SCH (08:54)
[2021-05-24] MEDS: ALPRAZolam 0.5 MG TABLET PO PRN ×2 (08:55→12:51)
[2021-05-24] MEDS: guaiFENesin 600 MG TABCR PO SCH (08:56)
[2021-05-24] MEDS: SPIRONOLACTONE 100 MG TAB PO SCH (08:56)
[2021-05-24] MEDS: POTASSIUM CHLORIDE CRTAB 20 MEQ TABCR PO SCH (08:57)
[2021-05-24] MEDS: FEXOFENADINE HCL 180 MG TAB PO SCH (08:57)
[2021-05-24] MEDS: PANTOprazole 40 MG TAB PO SCH (08:57)
[2021-05-24] MEDS: MAGNESIUM OXIDE 400 MG TAB PO SCH (08:57)
[2021-05-24] MEDS ORDERED: predniSONE 20 MG TAB PO SCH (09:00)
[2021-05-24] MEDS: BUMETANIDE 2 MG in SYRINGE 0 ML IV SCH (09:00)
[2021-05-24] MEDS: DOXYCYCLINE HYCLATE 100 MG in DEXTROSE 5% 100 ML IV SCH (09:07)
[2021-05-24] MEDS ORDERED: ONDANSETRON INJ 2 MG/ML 2 ML VIAL IV PRN (10:12)
[2021-05-24 10:51] LABS: Basophils # (auto) 0.01 K/uL (0-0.2); Basophils % (auto) 0.1 %; Hematocrit (blood only) 42.6 % (37-47); Hemoglobin 13.8 g/dL (12.0-16.0); Immature Granulocytes % (auto) 0.6 %; Lymphocytes # (auto) 1.74 K/uL (1.2-3.4); Lymphocytes % (auto) 10.6 %; Mean Corpuscular Hemoglobin 28.9 pg (25-34); Mean Corpuscular Hgb Conc 32.4 g/dL (32-36); Mean Corpuscular Volume 89.1 fL (80-100); Mean Platelet Volume 9.5 fL (7.4-10.4); Monocytes # (auto) 0.99 K/uL (0.11-0.59); Monocytes % (auto) 6.1 %; Neutrophils # (auto) 13.52 K/uL (1.4-6.5); Neutrophils % (auto) 82.6 %; Platelet Count 382 K/uL (130-400); RDW Coefficient of Variation 16.2 % (11.5-14.5); RDW Standard Deviation 53.2 fL (36.4-46.3); Red Blood Count 4.78 M/uL (4.2-5.4); White Blood Count 16.36 K/uL (4.8-10.8)
[2021-05-24 11:39] LABS: Calcium 9.4 mg/dl (8.5-10.1); Creatinine Clr Calc Pharmacy 118.2 ml/min; Est GFR (African American) 73.6 ml/min; Est GFR (Non-African American) 63.5 ml/min
[2021-05-24 12:17] LABS: INR 1.8 (0.9-1.1); Prothrombin Time 17.3 Seconds (9.0-12.0)
[2021-05-24 15:02] VITALS: BP 127/76; PULSE 75; TEMP 98.2; O2SAT 96
--- NOTE | 2021-05-24 15:27 | Discharge Summary ---
Date of Service May 24, 2021 Admission HPI Per Admitting Provider Jessica Sheppard is a 50 year old female who presents to the ER with worsening shortness of breath and cough. She has severe persistent asthma under Dr Murphy with prior bronchial thermoplasty, mepolizumab and current Fasenra. She is maintained on chronic steroids and reports she doesn't go below 20mg PO prednisone daily. For the last 4 days she has taken prednisone 40mg PO daily due to worsening shortness of breath. Feels this exacerbation may have started with increased humidity. Despite escalation in her steroids she had a coughing spell earlier that she was unable to cope with and her oxygen levels dropped so she called for an ambulance. Per prior pulmonology notes - she has had prior allergy testing which has been negative but takes cetirizine nightly and fexofenadine twice daily in addition to montelukast. She wears 2LPM O2 at night with her CPAP and as needed during the day. In the ER she was given an hour long duoneb with good relief of her symptoms. Her main current complaint is her chronic back pain in the current ER bed. She takes hydrocodone for this chronically. INR was also noted to be elevated. She reports this occurs whenever she drinks alcohol although none recently but she has been changing her eating habits with salads. Admission Exam Per Admitting Provider Constitutional: well developed, + acute distress (respiratory) and + morbidly obese; + not well nourished lyons facies Neck: + short neck and + thick neck Cardiovascular: Rate/Rhythm: regular rate and regular rhythm Heart Sounds: no murmur Extremities: + pedal edema (2+ to mid thighs b/l equal) Gastrointestinal (Abdomen): normal bowel sounds, soft, nontender, no hepatosplenomegaly Skin: no rashes, warm and dry (b/l homogenous erythematous face) Neurologic: moves all extremities and awake; not confused Psychiatric: A+Ox3, euthymic affect Principal Diagnosis Asthma Exacerbation Discharge Exam Temp Pulse Resp BP Pulse Ox 36.8 C 75 18 127/76 96 05/24/21 15:00 05/24/21 15:00 05/24/21 15:00 05/24/21 15:00 05/24/21 15:00 Patient is afebrile. Vital signs stable. Constitutional + obese; no acute distress Eyes + anicteric sclerae ENMT Ears: no hearing impairment Neck normal visual inspection Respiratory normal respiratory effort Auscultation: + wheezes (Faint inspiratory wheezes bilateral upper lobes ); no crackles Cardiovascular Rate/Rhythm: regular rate and regular rhythm Vessels: no JVD Extremities: + edema Gastrointestinal (Abdomen) Inspection/Auscultation: normal bowel sounds Percussion/Palpation: abdomen soft; abdomen nontender Musculoskeletal Head/Neck/Chest: normocephalic, head atraumatic and neck supple Skin + erythema (diffuse erythema of the bilateral face without vesicles or lesions ) Psychiatric A+Ox3, euthymic affect Discharge Data Allergies Allergy/AdvReac Type Severity Reaction Status Date / Time chlorhexidine Allergy Intermediate ITCHING Verified 05/22/21 18:26 budesonide Allergy Unknown Unknown Verified 05/22/21 18:26 azithromycin Allergy Unknown Verified 05/22/21 18:26 adhesive AdvReac Intermediate TAPE- Verified 05/22/21 18:26 SEVERE ITCHING clarithromycin AdvReac Intermediate NAUSEA Verified 05/22/21 18:26 clindamycin AdvReac Mild NAUSEA Verified 05/22/21 18:26 tramadol AdvReac Mild dizziness,S Verified 05/22/21 18:26 YNCOPE Consultations 05/22/21 18:07 ED Decision to Admit Stat 05/22/21 22:18 Consult Pulmonology Routine Hospital Course (1) Asthma exacerbation: Per outpatient pulmonology note: moderate obstructive disease on testing in 2016 Solu-medrol 60mg IV TID was ordered. Changed this to 40 mg of prednisone today x3 days, then 30mg x 3 days, then resume regular 20mg dailly dosing. Duonebs q4H as needed for shortness of breath or wheezes Continue her maintenance inhalers with Symbicort and Spiriva or hospital formulary equivalent Continue montelukast, fexofenadine and cetirizine Currently on Fasenra injections as outpatient as ordered by Dr. Murphy in [place], [place]. Continue to manage outpatient. Adequate airway movement in the base of the lungs. Some faint bilateral upper field wheezes. No stridor appreciated Oxygenation adequate. Plan for d/c home today as the patient feels she is back to her baseline from a respiratory status. She does note that she feels "metabolically off," but would like to go home as she feels near baseline. She will continue to [place] [facility] [place] as well as with Dr. Murphy in [place], [place]. (2) Acute and chronic respiratory failure: Patient uses supplemental oxygen 2 L/min via nasal cannula at home with CPAP. Patient also uses supplemental oxygen throughout the day as needed At this point, would bleeding oxygen with CPAP at night. Keep SaO2 greater than 90% during the daytime. Encourage ambulation and out of bed to chair. (3) Leukocytosis: No clear indication of infection Most likely secondary to steroids Currently on IV doxycycline while inpatient. Cover with 5 more days of doxy upon discharge. (4) Right-sided heart failure: Fluid retention suspect from right sided heart failure and steroids. Echocardiogram 04/19/2020 with preserved left ventricular ejection fraction greater than 70%. Right ventricle grossly normal size. Right ventricular systolic function was normal. Systolic pressure was elevated 30 to 40 mmHg Continue spironolactone 100mg PO daily Switched bumex 2mg PO daily to 2mg IV BID until Cr bumps---> weight down 7.2kg in 2 days. Will resume regular Bumex 2mg PO daily dosing upon discharge. Low Na and heart healthy diet recommended. Strict I&Os Daily weights BNP normal but may be artificially low in setting of high BMI (5) Obstructive sleep apnea hypopnea, mild: CPAP at night and during the day as needed. Outpatient management (6) Nocturnal hypoxia: Chronically on 2LPM O2 @ night to be bled in through CPAP (7) Anxiety: Continue her home dose Xanax. (8) Chronic back pain: Continue her routine hydrocodone. Outpatient management (9) GERD (gastroesophageal reflux disease): Switch omeprazole for pantoprazole per hospital formulary (10) Morbid obesity with BMI of 50.0-59.9, adult: Difficulty losing weight due to chronic prednisone use. Consider referral to weight management provider and/or genetics nurse as an outpatient. This can be facilitated by primary care. (11) Supratherapeutic INR: INR 6.9. On admission. She reports eating more salads this week. INR this morning is 1.8. Resume Coumadin on discharge. (12) Recurrent pulmonary emboli: Chronic warfarin use. As above (13) Blurring of vision: Patient advised to see a automotive salesperson on discharge. There is concern as an outpatient that she had infection. Advised patient should not be a delay in follow-up care on discharge VTE Prophylaxis - warfarin with hold parameters Diet - heart healthy, low Na Disposition -downgrade to [facility] Patient would benefit from referral to rheumatology and dermatology for facial rash as an outpatient as well. Total Time Total Time Spent Total Time Spent (In Minutes): >30 minutes Total Time Includes: Examination of the Patient, Discharge Planning, Medication Reconciliation and Communication With Other Providers Discharge Plan Discharge Items Patient Disposition: Home - Self-Care Reason For Visit: ASTHMA EXACERBATION Discharge Diagnosis: Asthma Exacerbation Activity: Resume your previous activity Bathing: No limitations Sexual Activity: When tolerated Exercise/Sports: Gradually increase as tolerated Driving/Machine Use: No limitations Weightbearing: Full weightbearing Non-emergency contact: Primary Care Provider Call non-emergency contact if: you have any medication questions, your symptoms worsen and you have a fever Follow-up/Referrals: Raj Mejia PA-C [Physician Weather Observer] - 06/12/21 2:15 pm (Patient will phone office to ask if her upcoming appt needs to occur within one week of hospital discharge as instructed.) Ramon العراقي MD [Primary Care Provider] - (Patient will phone PCP office to arrange appt.) Diet: Heart Healthy and Low Sodium (2gm) Addtl Attending Provider Instructions: Follow-up with [facility] in 1 week. Follow-up with Dr. العراقي in 1 week. Pending Studies at Discharge: No Stand-Alone Forms: My [facility] Medications and DC Order Prescriptions: New spironolactone 100 mg Tablet 100 mg PO DAILY 30 Days Qty: 30 RF: 0 prednisone 10 mg tablets,dose pack 10 mg PO DAILY 30 Days Qty: 69 RF: 0 doxycycline hyclate 100 mg capsule 100 mg PO BID 5 Days Qty: 10 RF: 0 Continued warfarin 10 mg tablet 15 mg PO TUTH Qty: 90 RF: 1 ergocalciferol (vitamin D2) [Vitamin D2] 1,250 mcg (50,000 unit) capsule 50,000 unit PO WE Qty: 12 RF: 1 montelukast [Singulair] 10 mg tablet 10 mg PO HS Qty: 90 RF: 3 omeprazole 40 mg capsule,delayed release(DR/EC) 40 mg PO QAM Qty: 90 RF: 3 potassium chloride 20 mEq tablet extended release 20 meq PO DAILY Qty: 90 RF: 3 (DME) BD Integra Syringe 3 mL 25 gauge x 1" syringe See Rx Instructions .ROUTE .MEDSUPPLY Qty: 12 RF: 3 warfarin 10 mg tablet 10 mg PO SUMOWEFRSA Qty: 90 RF: 3 cyanocobalamin (vitamin B-12) 1,000 mcg/mL solution 1,000 mcg IM .COMPLEX Qty: 4 RF: 3 baclofen 20 mg tablet 20 mg PO HS Qty: 90 RF: 3 bumetanide 2 mg tablet 2 mg PO DAILY Qty: 90 RF: 3 albuterol sulfate 90 mcg/actuation HFA aerosol inhaler 2 puff inhalation 6XD PRN (Reason: shortness of breath or wheezing) Qty: 3 RF: 1 codeine-guaifenesin 10-100 mg/5 mL liquid 5 ml PO Q6H PRN (Reason: cough) Qty: 236 RF: 0 alprazolam 1 mg tablet 1 mg PO TID PRN (Reason: anxiety) Qty: 90 RF: 0 alprazolam [Xanax] 2 mg tablet 2 mg PO HS Qty: 30 RF: 0 hydrocodone-acetaminophen 10-325 mg tablet 1 tab PO Q6H PRN (Reason: Pain) Qty: 30 RF: 0 (DME) CPAP Machine Misc See Rx Instructions .MEDSUPPLY Qty: 1 RF: 0 ipratropium-albuterol 0.5 mg-3 mg(2.5 mg base)/3 mL solution for nebulization 3 ml INHALATION Q4H Qty: 540 RF: 3 (DME) Oxygen Home Liters Per Minute See Rx Instructions .ROUTE .MEDSUPPLY Qty: 1 RF: 0 metronidazole 0.75 % gel 1 applic topical BID Qty: 45 RF: 2 (DME) misc Misc See Rx Instructions .ROUTE .MEDSUPPLY Qty: 1 RF: 0 Wheelchair (Manual) Device See Rx Instructions .ROUTE .COMPLEX Qty: 1 RF: 0 Fasenra 30 mg/mL syringe 30 mg subcut MONTHLY RF: 0 magnesium oxide 400 mg (241.3 mg magnesium) tablet 400 mg PO BID Qty: 180 RF: 3 cetirizine [Zyrtec] 10 mg Tablet 10 mg PO HS RF: 0 fexofenadine [Susanne Allergy] 180 mg Tablet 180 mg PO BID RF: 0 fluticasone propionate [Flonase Allergy Relief] 50 mcg/actuation Clemons,Suspension 1 spray intranasal DAILY RF: 0 Spiriva Respimat 1.25 mcg/actuation Mist 1 puff INHALATION BID RF: 0 polyethylene glycol 3350 [Miralax] 17 gram Powder In Packet 17 g PO DAILY Qty: 1 RF: 0 zolpidem 10 mg tablet 10 mg PO HS PRN (Reason: insomnia) RF: 0 diclofenac sodium 1 % gel 4 g EXT QID PRN (Reason: Pain) RF: 0 Discontinued prednisone 10 mg tablet 40 mg PO DAILY RF: 0 sulfamethoxazole-trimethoprim [Bactrim DS] 800-160 mg tablet 1 tab PO 3XWK Qty: 12 RF: 3 valacyclovir [Valtrex] 1 gram tablet 1,000 mg PO TID Qty: 21 RF: 2 spironolactone [Aldactone] 50 mg tablet 100 mg PO DAILY RF: 0 Discharge Orders: Discharge Order (Routine); Ordered 05/24/21 Ordered By: Nella Oviedo/Other Patient Handouts: Discharge Instructions for Asthma Admission Data Admit Date/Time: 05/22/21 19:35 Attending Provider: Rob Augustin Admit Provider: David Rueda Primary Care Provider: Ramon العراقي Other Providers: David Rueda ; Jesus Borrero Other Interventions: Discharge Summary Assessment (RN) Last Done: 05/24/21 15:41 Supervising Physician Co-Signing Physician Notes Patient seen and examined on the day of discharge. I agree with the discharge summary by Nella MIRAMONTES. I have reviewed the chart including labs, imaging and plans for discharge. patient breathing better, not quite back to baseline but improved enough that she would like to go home eating and drinking well, no fever, no chest pain appreciate pulmonology input - Severe COPD, sleep apnea, pulmonary HTN: here with exacerbation, responded well to steroids, send on Prednisone taper, pulmonary follow up Coding Level of Care Code D/C DAY MANAGEMENT >30 MINS Diagnoses Asthma exacerbation J45.901 Acute and chronic respiratory failure J96.20 Respiratory failure complication: unspecified whether with hypoxia or hypercapnia Leukocytosis D72.829 Right-sided heart failure I50.810 Obstructive sleep apnea hypopnea, mild G47.33 Nocturnal hypoxia G47.34 Anxiety F41.9 Chronic back pain M54.9; G89.29 Back pain laterality: left Back pain location: back pain in unspecified location GERD (gastroesophageal reflux disease) K21.9 Morbid obesity with BMI of 50.0-59.9, adult E66.01; Z68.43 Supratherapeutic INR R79.1 Recurrent pulmonary emboli I26.99 Blurring of vision H53.8
== END 2021-05-24 16:25 | disposition home or self-care (01) ==
LOC: ED 16:03 → 2S 19:35 → INTOOBSV 19:35 → SUATTDRO 19:35 → 2S 22:14 → 3E 05-23 17:56

== ENCOUNTER 2022-01-08 13:31 | Inpatient (IN) ==
[2022-01-08] MEDS ORDERED: ONDANSETRON INJ 2 MG/ML 2 ML VIAL IV STA (13:54)
[2022-01-08] MEDS ORDERED: MoRPHine SULFATE 10 MG/ML CARP/VIAL IV STA (13:54)
--- NOTE | 2022-01-08 13:57 | Emergency Department Note ---
Impression & Plan Acute and chronic respiratory failure ADMIT ED Provider Note HPI: The patient is a 51-year-old female with history of morbid obesity, BMI of 72, acute on chronic respiratory failure with history of asthma, she is on supplemental oxygen as needed during the day and uses 2 L nasal cannula at night, who presents emergency department with a chief complaint of respiratory distress. Patient states she has had worsening shortness of breath in addition to right lower extremity erythema, blisters, and pain over the past several days. On arrival to the ED the patient is tachypneic, she is tachycardic, on my initial assessment she is saturating well on nonrebreather mask but she is displaying increased work of breathing. She was noted to be hypoxic at 88% on room air in triage. Continuous breathing treatment was ordered in addition to respiratory therapy consultation for BiPAP shortly after my initial assessment. ROS: -Pulmonary: Respiratory distress *10 point review systems was conducted and is otherwise negative unless stated above *Outpatient medications and allergy history reviewed PE: General: Morbidly obese, alert HEENT: Normocephalic, atraumatic Eyes: Extraocular eye movement is intact, no scleral erythema Pulmonary: Diminished air movement bilaterally Cardio: Regular rate and rhythm GI: Abdomen is soft, nontender : No suprapubic tenderness MSK: No evidence of trauma or malformation of the extremities, no edema Skin: Moderate erythema of the bilateral lower extremities below the knee and above the ankle, there is some blister formation with purulent drainage to the right anterior no and medial ankle area without any crepitus to palpation Neuro: Alert, no focal deficits Psychiatric: 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 Patient has had increased redness and pain to her right lower extremity with some overlying purulent drainage, she is also had some increased work of breathing that is been worsening throughout the day today. On arrival to the ED the patient is hypoxic, she is displaying increased work of breathing, she was placed on BiPAP with good improvement in her work of breathing, given Ativan, given morphine for acute on chronic back pain and right lower extremity cellulitis and pain. IV was established, lab work obtained, lab work shows a leukocytosis of about 12,000, blood cultures were also drawn given the finding of possible cellulitis of the right lower extremity that appear circumferential with purulent drainage. CT imaging of the right lower extremity does not show any evidence of gas formation. CT imaging with angiography of the chest was obtained given that the patient's INR is noted to be subtherapeutic at 1.0, this does not show any evidence of pulmonary embolism. Patient was given DuoNeb breathing treatment, IV Solu-Medrol, her CT scan does show evidence of some bronchial wall thickening with mucous plugging. Patient's venous blood gas shows evidence of respiratory alkalosis with a low PCO2, alkalotic pH, no evidence of hypercarbic respiratory failure. Lactic acid is slightly elevated 2.7, this did downtrend to 2.5 without IV fluids, patient was given a small bolus of IV fluid 500 cc of normal saline and none further secondary to hemodynamic stability and concern for potential fluid overload. There is possibly also an element of type B lactic acidosis with ongoing respiratory treatments. My reassessment the patient has been weaned back down to ox mask at 10 L, she states she is feeling more comfortable. Given her cellulitic changes to the right lower extremity with leukocytosis and respiratory failure on arrival with hypoxic oxygen saturation she will be admitted to the hospitalist service for further management. Case was discussed with the [place] [facility] [place], Ramos MIRAMONTES, and patient was admitted in improved condition. * CRITICAL CARE TIME: 45 min -Stabilization of hypoxia with oxygen saturation of 88% on room air requiring supplemental oxygen for improvement, time spent at the bedside, interpretation of diagnostic studies, arrangement of admission Diagnosis: 1. Acute on chronic respiratory failure with hypoxia 2. Leukocytosis 3. Right lower extremity cellulitis 4. Leukocytosis 5. 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) Obstructive sleep apnea of adult Pre-diabetes Pulmonary embolism (2013) Severe persistent asthma, poorly-controlled Vitamin B12 deficiency Vitamin D deficiency Surgical History History of appendectomy History of cholecystectomy History of herniorrhaphy History of hysterectomy History of nasal septoplasty History of tonsillectomy History of total adrenalectomy Hx of endoscopic retrograde cholangiopancreatography Hx of fracture of clavicle Nausea and vomiting after administration of anesthetic agent Family History Aunt Breast cancer Ovarian cancer Grandmother (Maternal) Breast cancer Depression Osteoporosis Dyslipidemia Diabetes Grandfather (Paternal) Myocardial infarction Alzheimer disease COPD (chronic obstructive pulmonary disease) Congenital heart disease Dyslipidemia Congestive heart failure Diabetes Grandmother (Paternal) Myocardial infarction Atrial fibrillation COPD (chronic obstructive pulmonary disease) Osteoporosis Uncle Prostate cancer Sister Bipolar disorder Depression Father Brain tumor Hypertension Heart disease Dyslipidemia Family/Other Cancer Colon cancer Grandfather (Maternal) COPD (chronic obstructive pulmonary disease) Lung cancer Dyslipidemia Diabetes Brother Congenital heart disease Mother Depression Dyslipidemia Diabetes Social History Smoking Status: Never smoker Tobacco Type: Cigarettes Age Started Using Tobacco: 21; Age Quit Using Tobacco: 27; packs per day: 0.5; Second Hand Exposure: No; Hx Alcohol Use: Yes Alcohol type: beer, wine and hard liquor Alcohol Intake Frequency: 2-4 x/Month Hx Substance Use: No Preferred Language: Honduran Communication Ability: Effective Visual Impairment: No Limitations Director Of Outpatient Services Required: No Beliefs That Will Affect Care: None marital status: Current Living Situation: Spouse current occupational status: employed 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 How many Children do You have: 0 Feels Safe at Home: Yes Seatbelt Use: always Assistive Devices: Walker Allergies Allergies Allergy/AdvReac Type Severity Reaction Status Date / Time chlorhexidine Allergy Intermediate ITCHING Verified 10/28/21 16:58 budesonide Allergy Unknown Unknown Verified 10/28/21 16:58 azithromycin Allergy Unknown Verified 10/28/21 16:58 adhesive AdvReac Intermediate TAPE- Verified 10/28/21 16:58 SEVERE ITCHING clarithromycin AdvReac Intermediate NAUSEA Verified 10/28/21 16:58 clindamycin AdvReac Mild NAUSEA Verified 10/28/21 16:58 tramadol AdvReac Mild dizziness,S Verified 10/28/21 16:58 YNCOPE Home Meds Home Medications Medication Instructions Recorded Confirmed fluticasone propionate 50 1 spray INTRANASAL DAILY 05/09/18 10/28/21 mcg/actuation nasal spray,suspension (Flonase Allergy Relief) tiotropium bromide 1.25 1 puff INHALATION BID 05/09/18 10/28/21 mcg/actuation mist for inhalation (Spiriva Respimat) cetirizine 10 mg tablet (Zyrtec) 10 mg PO HS 03/18/20 10/28/21 benralizumab 30 mg/mL subcutaneous 30 mg SUBCUT MONTHLY 02/06/21 10/28/21 syringe (Fasenra) fexofenadine 180 mg tablet 180 mg PO DAILY tab 10/28/21 10/28/21 (Susanne Allergy) Previous Rx's Medication Instructions Recorded Jobst Stockings (misc) #1 ea 02/15/20 polyethylene glycol 3350 17 gram 17 g PO DAILY #1 btl 04/24/20 oral powder packet (Miralax) CPAP Machine #1 ea 05/30/20 Oxygen Home #1 ea 05/30/20 ergocalciferol (vitamin D2) 1,250 50,000 unit PO WE #12 cap 07/30/20 mcg (50,000 unit) capsule (Vitamin D2) syringe with needle, safety 3 mL #12 ea 07/30/20 25 gauge x 1" (BD Integra Syringe) Wheelchair (Manual) See Rx Instructions .ROUTE 10/02/20 .COMPLEX #1 ea albuterol sulfate 90 mcg/actuation 2 puff INHALATION 6XD PRN #3 04/11/21 aerosol inhaler inhaler codeine 10 mg-guaifenesin 100 mg/5 5 ml PO Q6H PRN #236 ml 04/21/21 mL oral liquid magnesium oxide 400 mg (241.3 mg 400 mg PO BID #180 tab 05/15/21 magnesium) tablet ipratropium 0.5 mg-albuterol 3 mg 3 ml INHALATION Q4H #540 ml 09/11/21 (2.5 mg base)/3 mL nebulization soln alprazolam 1 mg tablet 1 mg PO TID PRN #90 tab 10/28/21 baclofen 20 mg tablet 20 mg PO HS #90 tab 10/29/21 bumetanide 2 mg tablet 2 mg PO DAILY #90 tab 10/29/21 montelukast 10 mg tablet 10 mg PO HS #90 tab 10/29/21 (Singulair) omeprazole 40 mg capsule,delayed 40 mg PO QAM #90 cap 10/29/21 release potassium chloride 20 mEq 20 meq PO DAILY #90 tab 10/29/21 tablet,extended release prednisone 20 mg tablet 20 mg PO DAILY #90 tab 10/29/21 spironolactone 100 mg tablet 100 mg PO DAILY 90 Days #90 tab 10/29/21 warfarin 10 mg tablet 10 mg PO SUMOWEFRSA #90 tab 10/29/21 warfarin 10 mg tablet 15 mg PO TUTH #90 tab 10/29/21 amoxicillin 875 mg-potassium 1 tab PO BID #30 tab 12/18/21 clavulanate 125 mg tablet cyanocobalamin (vitamin B-12) See Rx Instructions .ROUTE 12/24/21 1,000 mcg/mL injection solution .COMPLEX #4 ml alprazolam 2 mg tablet (Xanax) 2 mg PO HS #30 tab 12/30/21 hydrocodone 10 mg-acetaminophen 1 tab PO Q6H PRN #30 tab 12/30/21 325 mg tablet zolpidem 10 mg tablet 10 mg PO HS PRN #30 tab 01/07/22 Results & Data (ED) Vital Signs Vital Signs - 24 hr 01/08/22 13:36 01/08/22 14:07 01/08/22 14:08 Temperature 36.5 C Temperature Source Temporal Artery Scan Pulse Rate 111 H 96 H Pulse Rate [Apical] 91 H Pulse Rate from SpO2 Sensor Respiratory Rate 41 H 40 H 37 H Respiratory Effort / Characteristics Short of Breath Spontaneous Labored Moaning Short of Breath Spontaneous Labored Moaning Short of Breath Respiratory Depth Deep Respiratory Pattern Tachypnea Blood Pressure Blood Pressure Mean Pulse Oximetry 100 100 100 Oxygen Delivery Method Oxymask BiPAP Oxygen Flow Rate 4 Fraction of Inspired Oxygen 30 30 Sepsis Recent Fever Within 48 Hours No Sepsis New/Unexplained Change in Mental Status No Sepsis Action Taken by Nursing No Action Required Pulse Oximetry Post Tiitration 01/08/22 14:09 01/08/22 14:10 01/08/22 14:20 Temperature Temperature Source Pulse Rate 84 80 81 Pulse Rate [Apical] Pulse Rate from SpO2 Sensor 86 80 81 Respiratory Rate 26 H 40 H 44 H Respiratory Effort / Characteristics Respiratory Depth Respiratory Pattern Blood Pressure Blood Pressure Mean Pulse Oximetry 100 100 100 Oxygen Delivery Method Oxygen Flow Rate Fraction of Inspired Oxygen Sepsis Recent Fever Within 48 Hours Sepsis New/Unexplained Change in Mental Status Sepsis Action Taken by Nursing Pulse Oximetry Post Tiitration 01/08/22 14:30 01/08/22 14:40 01/08/22 14:50 Temperature Temperature Source Pulse Rate 92 H 79 79 Pulse Rate [Apical] Pulse Rate from SpO2 Sensor 88 82 83 Respiratory Rate 23 24 36 H Respiratory Effort / Characteristics Respiratory Depth Respiratory Pattern Blood Pressure Blood Pressure Mean Pulse Oximetry 100 100 100 Oxygen Delivery Method Oxygen Flow Rate Fraction of Inspired Oxygen Sepsis Recent Fever Within 48 Hours Sepsis New/Unexplained Change in Mental Status Sepsis Action Taken by Nursing Pulse Oximetry Post Tiitration 01/08/22 15:00 01/08/22 15:01 01/08/22 15:10 Temperature Temperature Source Pulse Rate 77 79 86 Pulse Rate [Apical] Pulse Rate from SpO2 Sensor 88 79 86 Respiratory Rate 33 H 34 H 31 H Respiratory Effort / Characteristics Respiratory Depth Respiratory Pattern Blood Pressure 130/97 Blood Pressure Mean 108 Pulse Oximetry 100 100 100 Oxygen Delivery Method Oxygen Flow Rate Fraction of Inspired Oxygen Sepsis Recent Fever Within 48 Hours Sepsis New/Unexplained Change in Mental Status Sepsis Action Taken by Nursing Pulse Oximetry Post Tiitration 01/08/22 15:20 01/08/22 15:28 Temperature Temperature Source Pulse Rate 85 Pulse Rate [Apical] Pulse Rate from SpO2 Sensor 84 Respiratory Rate 21 22 Respiratory Effort / Characteristics Accessory Muscle Use Short of Breath Respiratory Depth Respiratory Pattern Blood Pressure Blood Pressure Mean Pulse Oximetry 100 100 Oxygen Delivery Method BiPAP Oxygen Flow Rate Fraction of Inspired Oxygen Sepsis Recent Fever Within 48 Hours Sepsis New/Unexplained Change in Mental Status Sepsis Action Taken by Nursing Pulse Oximetry Post Tiitration 100 Laboratory Data Result diagrams: 01/08/22 14:04 01/08/22 14:49 Lab Results 01/08/22 01/08/22 01/08/22 Range/Units 13:55 14:04 14:04 WBC 12.26 H (4.8-10.8) K/uL RBC 4.98 (4.2-5.4) M/uL Hgb 15.3 (12.0-16.0) g/dL Hct 46.8 (37-47) % MCV 94.0 (80-100) fL MCH 30.7 (25-34) pg MCHC 32.7 (32-36) g/dL RDW Std Deviation 50.6 H (36.4-46.3) fL RDW Coeff of Felicia 15.0 H (11.5-14.5) % Plt Count 358 (130-400) K/uL MPV 10.0 (7.4-10.4) fL Immature Gran % (Auto) 0.2 % Neut % (Auto) 59.2 % Lymph % (Auto) 35.2 % Ventura % (Auto) 5.3 % Eos % (Auto) 0.0 % Baso % (Auto) 0.1 % Neut # (Auto) 7.27 H (1.4-6.5) K/uL Lymph # (Auto) 4.31 H (1.2-3.4) K/uL Ventura # (Auto) 0.65 H (0.11-0.59) K/uL Eos # (Auto) 0.00 (0-0.5) K/uL Baso # (Auto) 0.01 (0-0.2) K/uL Immature Gran # (Auto) 0.02 (0.00-0.02) K/uL PT Cancelled INR Cancelled APTT Cancelled PTT Ratio Cancelled D-Dimer (0-500) ug/L FEU VBG pH (7.36-7.41) VBG pCO2 (38-50) mmHg VBG pO2 mmHg VBG HCO3 mmol/L VBG O2 Saturation % VBG Base Excess mEq/L Barometric Pressure mm/Hg Sodium (136-145) mmol/L Potassium Chloride (98-107) mmol/L Carbon Dioxide (21-32) mmol/L Anion Gap (3-11) BUN (6-23) mg/dl Creatinine (0.6-1.2) mg/dl Est Cr Clr Drug Dosing Est GFR ( Amer) ml/min Est GFR (Non-Af Amer) ml/min BUN/Creatinine Ratio (10-20) Glucose (70-99(Fasting)) mg/dl Lactate 2.7 H* (0.4-2.0) mmol/L Calcium (8.5-10.1) mg/dl Magnesium (1.7-2.4) mg/dl Total Bilirubin (0.2-1.0) mg/dl AST ALT (7-52) U/L Alkaline Phosphatase (34-104) U/L Troponin I High Sens (0-14) pg/ml B-Natriuretic Peptide (0-100) pg/ml Total Protein (6.0-8.3) gm/dl Albumin (3.4-5.0) gm/dl Globulin (2.5-4.0) gm/dl Albumin/Globulin Ratio (0.9-2) Procalcitonin (0-0.5) ng/ml 01/08/22 01/08/22 01/08/22 Range/Units 14:04 14:04 14:18 WBC (4.8-10.8) K/uL RBC (4.2-5.4) M/uL Hgb (12.0-16.0) g/dL Hct (37-47) % MCV (80-100) fL MCH (25-34) pg MCHC (32-36) g/dL RDW Std Deviation (36.4-46.3) fL RDW Coeff of Felicia (11.5-14.5) % Plt Count (130-400) K/uL MPV (7.4-10.4) fL Immature Gran % (Auto) % Neut % (Auto) % Lymph % (Auto) % Ventura % (Auto) % Eos % (Auto) % Baso % (Auto) % Neut # (Auto) (1.4-6.5) K/uL Lymph # (Auto) (1.2-3.4) K/uL Ventura # (Auto) (0.11-0.59) K/uL Eos # (Auto) (0-0.5) K/uL Baso # (Auto) (0-0.2) K/uL Immature Gran # (Auto) (0.00-0.02) K/uL PT INR APTT PTT Ratio D-Dimer (0-500) ug/L FEU VBG pH (7.36-7.41) VBG pCO2 (38-50) mmHg VBG pO2 mmHg VBG HCO3 mmol/L VBG O2 Saturation % VBG Base Excess mEq/L Barometric Pressure mm/Hg Sodium 137 (136-145) mmol/L Potassium TNP Chloride 100 (98-107) mmol/L Carbon Dioxide 27 (21-32) mmol/L Anion Gap 10 (3-11) BUN 13 (6-23) mg/dl Creatinine 0.69 (0.6-1.2) mg/dl Est Cr Clr Drug Dosing Not Reportable Est GFR ( Amer) 118.5 ml/min Est GFR (Non-Af Amer) 102.2 ml/min BUN/Creatinine Ratio 18.8 (10-20) Glucose 110 H (70-99(Fasting)) mg/dl Lactate (0.4-2.0) mmol/L Calcium 9.4 (8.5-10.1) mg/dl Magnesium 2.2 (1.7-2.4) mg/dl Total Bilirubin 0.6 (0.2-1.0) mg/dl AST TNP ALT 30 (7-52) U/L Alkaline Phosphatase 79 (34-104) U/L Troponin I High Sens 4.8 (0-14) pg/ml B-Natriuretic Peptide 23 (0-100) pg/ml Total Protein 7.5 (6.0-8.3) gm/dl Albumin 4.0 (3.4-5.0) gm/dl Globulin 3.5 (2.5-4.0) gm/dl Albumin/Globulin Ratio 1.1 (0.9-2) Procalcitonin 0.05 (0-0.5) ng/ml 01/08/22 01/08/22 01/08/22 Range/Units 14:18 14:45 14:47 WBC (4.8-10.8) K/uL RBC (4.2-5.4) M/uL Hgb (12.0-16.0) g/dL Hct (37-47) % MCV (80-100) fL MCH (25-34) pg MCHC (32-36) g/dL RDW Std Deviation (36.4-46.3) fL RDW Coeff of Felicia (11.5-14.5) % Plt Count (130-400) K/uL MPV (7.4-10.4) fL Immature Gran % (Auto) % Neut % (Auto) % Lymph % (Auto) % Ventura % (Auto) % Eos % (Auto) % Baso % (Auto) % Neut # (Auto) (1.4-6.5) K/uL Lymph # (Auto) (1.2-3.4) K/uL Ventura # (Auto) (0.11-0.59) K/uL Eos # (Auto) (0-0.5) K/uL Baso # (Auto) (0-0.2) K/uL Immature Gran # (Auto) (0.00-0.02) K/uL PT 10.3 INR 1.0 APTT 23.5 PTT Ratio 0.9 D-Dimer 250 (0-500) ug/L FEU VBG pH 7.54 H (7.36-7.41) VBG pCO2 33 L (38-50) mmHg VBG pO2 39 mmHg VBG HCO3 27 mmol/L VBG O2 Saturation 81.0 % VBG Base Excess 5.1 mEq/L Barometric Pressure 726.1 mm/Hg Sodium (136-145) mmol/L Potassium Chloride (98-107) mmol/L Carbon Dioxide (21-32) mmol/L Anion Gap (3-11) BUN (6-23) mg/dl Creatinine (0.6-1.2) mg/dl Est Cr Clr Drug Dosing Est GFR ( Amer) ml/min Est GFR (Non-Af Amer) ml/min BUN/Creatinine Ratio (10-20) Glucose (70-99(Fasting)) mg/dl Lactate (0.4-2.0) mmol/L Calcium (8.5-10.1) mg/dl Magnesium (1.7-2.4) mg/dl Total Bilirubin (0.2-1.0) mg/dl AST ALT (7-52) U/L Alkaline Phosphatase (34-104) U/L Troponin I High Sens (0-14) pg/ml B-Natriuretic Peptide (0-100) pg/ml Total Protein (6.0-8.3) gm/dl Albumin (3.4-5.0) gm/dl Globulin (2.5-4.0) gm/dl Albumin/Globulin Ratio (0.9-2) Procalcitonin (0-0.5) ng/ml 01/08/22 01/08/22 Range/Units 14:49 16:32 WBC (4.8-10.8) K/uL RBC (4.2-5.4) M/uL Hgb (12.0-16.0) g/dL Hct (37-47) % MCV (80-100) fL MCH (25-34) pg MCHC (32-36) g/dL RDW Std Deviation (36.4-46.3) fL RDW Coeff of Felicia (11.5-14.5) % Plt Count (130-400) K/uL MPV (7.4-10.4) fL Immature Gran % (Auto) % Neut % (Auto) % Lymph % (Auto) % Ventura % (Auto) % Eos % (Auto) % Baso % (Auto) % Neut # (Auto) (1.4-6.5) K/uL Lymph # (Auto) (1.2-3.4) K/uL Ventura # (Auto) (0.11-0.59) K/uL Eos # (Auto) (0-0.5) K/uL Baso # (Auto) (0-0.2) K/uL Immature Gran # (Auto) (0.00-0.02) K/uL PT INR APTT PTT Ratio D-Dimer (0-500) ug/L FEU VBG pH (7.36-7.41) VBG pCO2 (38-50) mmHg VBG pO2 mmHg VBG HCO3 mmol/L VBG O2 Saturation % VBG Base Excess mEq/L Barometric Pressure mm/Hg Sodium (136-145) mmol/L Potassium 4.0 Chloride (98-107) mmol/L Carbon Dioxide (21-32) mmol/L Anion Gap (3-11) BUN (6-23) mg/dl Creatinine (0.6-1.2) mg/dl Est Cr Clr Drug Dosing Est GFR ( Amer) ml/min Est GFR (Non-Af Amer) ml/min BUN/Creatinine Ratio (10-20) Glucose (70-99(Fasting)) mg/dl Lactate 2.5 H* (0.4-2.0) mmol/L Calcium (8.5-10.1) mg/dl Magnesium (1.7-2.4) mg/dl Total Bilirubin (0.2-1.0) mg/dl AST 14 ALT (7-52) U/L Alkaline Phosphatase (34-104) U/L Troponin I High Sens (0-14) pg/ml B-Natriuretic Peptide (0-100) pg/ml Total Protein (6.0-8.3) gm/dl Albumin (3.4-5.0) gm/dl Globulin (2.5-4.0) gm/dl Albumin/Globulin Ratio (0.9-2) Procalcitonin (0-0.5) ng/ml Administered Medications Discontinued Medications Albuterol (Albut/Ipratrop 3mg/0.5mg Neb 3 Ml Vial) Confirm Administered Dose 12 ml .ROUTE .STK-MED ONE Stop: 01/08/22 14:01 Last Admin: 01/08/22 14:07 Dose: 12 ml Documented by: [id number] Albuterol (Albut/Ipratrop 3mg/0.5mg Neb 3 Ml Vial) 12 ml NEB ONE ONE; Protocol Stop: 01/08/22 14:25 Last Admin: 01/08/22 15:27 Dose: Not Given Documented by: [id number] Sodium Chloride (Nss 1000ml) 500 mls @ 999 mls/hr IV .Q31M ONE Stop: 01/08/22 17:57 Last Admin: 01/08/22 17:28 Dose: 999 mls/hr Documented by: [id number] Ioversol (Optiray 320 125ml) 120 ml IV ONCE ONE Stop: 01/08/22 17:28 Last Admin: 01/08/22 17:27 Dose: 120 ml Documented by: [id number] Lorazepam (Lorazepam 2 Mg/1 Ml Vial) 1 mg IV NOW STA; Protocol Stop: 01/08/22 14:42 Last Admin: 01/08/22 14:51 Dose: 1 mg Documented by: [id number] Methylprednisolone (Methylprednisolone 125 Mg/2 Ml Vial) 125 mg IV NOW STA Stop: 01/08/22 17:12 Last Admin: 01/08/22 17:28 Dose: 125 mg Documented by: [id number] Morphine Sulfate (Morphine Sulfate 10 Mg/Ml Carp/Vial) 6 mg IV NOW STA Stop: 01/08/22 13:55 Last Admin: 01/08/22 14:00 Dose: 6 mg Documented by: [id number] Morphine Sulfate (Morphine Sulfate 4 Mg/Ml 1 Ml Carp\\Vial) 4 mg IV NOW STA Stop: 01/08/22 15:45 Last Admin: 01/08/22 15:52 Dose: 4 mg Documented by: [id number] Ondansetron HCl (Ondansetron Inj 2 Mg/Ml 2 Ml Vial) 4 mg IV NOW STA Stop: 01/08/22 13:55 Last Admin: 01/08/22 14:00 Dose: 4 mg Documented by: [id number] Imaging Data Radiologist's Impression: Chest X-Ray 01/08/22 13:52 SINGLE VIEW CHEST CLINICAL HISTORY: Sepsis. FINDINGS: 2 AP, portable, upright chest radiographs are compared to study dated 05/22/2021 and correlated with chest CT dated 04/24/2020. The examination is degraded by portable technique, apical lordotic positioning, and large body habitus. The cardiomediastinal silhouette is top normal for projection. There is bibasilar atelectasis. The lungs and pleural spaces are otherwise grossly clear. No pneumothorax is seen. The bony thorax is grossly intact. IMPRESSION: No active disease in the chest. ACT 112: Negative or not required by law. Electronically signed by: Airas Montenegro M.D. 01/08/2022 2:35 PM Tibia/Fibula X-Ray 01/08/22 13:55 RIGHT TIBIA AND FIBULA 2 VIEWS CLINICAL HISTORY: Right leg pain and erythema. FINDINGS: AP and lateral views of the right tibia and fibula are correlated with radiographs of the right knee dated 09/08/2013. The skeletal structures are well mineralized. There is no radiographic evidence of fracture. There is no bony erosion or periostitis. The knee and ankle joints are grossly maintained. There is a large plantar calcaneal enthesophyte. Soft tissue edema is present throughout the right leg. No soft tissue gas or radiodense foreign body is identified. IMPRESSION: Soft tissue swelling with no acute bony abnormality identified. Electronically signed by: Arias Montenegro M.D. 01/08/2022 2:36 PM Chest CTA 01/08/22 14:41 CT angio chest PE protocol CT DOSE: 1147.89 mGy.cm HISTORY: 51 years-old Female with PE. Acute shortness of breath with chest pain TECHNIQUE: Multiple CTA images of the chest were obtained after the intravenous administration of 120 ml Optiray. Coronal and sagittal MIPS were obtained from the axial data set and were submitted for review. All measurements were obtained according to NASCET criteria. A dose lowering technique was utilized adhering to the principles of ALARA. COMPARISON: CTA chest 04/24/2020 FINDINGS: CTA: The heart is mildly enlarged. Mediastinal lipomatosis. Bovine morphology of the thoracic aortic arch without aneurysm or dissection. Suboptimal evaluation of the pulmonary artery secondary to majority of the contrast bolus within the SVC. No central pulmonary emboli are identified. CT CHEST: No dominant thyroid nodule is seen. No pathologically adenopathy by CT size criteria. No pneumothorax, pleural effusion or overt pulmonary edema. Mild subsegmental bibasilar atelectasis. Bronchial wall thickening with mild bibasilar mucous plugging. There are no suspicious pulmonary nodules or masses identified. No acute process of the imaged upper abdomen. The liver appears enlarged with suggestion of mild hepatic steatosis. Unremarkable soft tissues. The osseous structures appear intact. IMPRESSION: 1. Limited evaluation of the pulmonary arterial tree secondary to contrast bolus timing. No central pulmonary emboli identified. 2. Bronchial wall thickening with mucous plugging suggestive of bronchitis versus reactive airway disease. Mild associated atelectasis. 3. No airspace consolidation typical for pneumonia. ACT 112: Negative or not required by law. The above report was generated using voice recognition software. It may contain grammatical, syntax or spelling errors. Electronically signed by: Mark Dennis M.D. 01/08/2022 5:[address] 01/08/22 14:42 CT tib/fib RT w con HISTORY: 51 years-old Female Erythema, pain, blister formation, eval for infec. Acute pain and swelling of the right lower leg COMPARISON: Right tibia and fibula radiographs of same day TECHNIQUE: Multiple axial CT images of the right tibia and fibula were obtained following the intravenous administration of Optiray. A dose lowering technique was used consistent with the principals of ALARA. FINDINGS: Trace joint effusion of the knee. Mild nonspecific pretibial subcutaneous edema. No soft tissue mass, drainable fluid collection or intramuscular hematoma. Tendons and ligaments of the knee and ankle are not well evaluated by CT technique. Osteoarthritis of the knee is moderate within the medial compartment. Moderate sized enthesophytes of the calcaneus. No acute fracture, dislocation, osseous erosion or osteochondral defect. IMPRESSION: 1. No acute fracture, dislocation or osseous erosion. 2. Trace joint effusion of the knee. 3. Mild nonspecific subcutaneous edema of the pretibial tissues. No focal fluid collection. ACT 112: Negative or not required by law. The above report was generated using voice recognition software. It may contain grammatical, syntax or spelling errors. Electronically signed by: Mark Dennis M.D. 01/08/2022 5:42 PM Discharge Plan Visit Data Chief Complaint: Shortness of Breath/Dyspnea Stated Complaint: SHORTNESS OF BREATH, COPD, ASTHMA ED Provider: Michael Taylor Discharge Problem: Acute and chronic respiratory failure Forms Stand Alone Forms: [facility] [employer] Prescriptions Prescriptions: No Action ergocalciferol (vitamin D2) [Vitamin D2] 1,250 mcg (50,000 unit) capsule 50,000 unit PO WE Qty: 12 RF: 1 (DME) BD Integra Syringe 3 mL 25 gauge x 1" syringe See Rx Instructions .ROUTE .MEDSUPPLY Qty: 12 RF: 3 albuterol sulfate 90 mcg/actuation HFA aerosol inhaler 2 puff inhalation 6XD PRN (Reason: shortness of breath or wheezing) Qty: 3 RF: 1 codeine-guaifenesin 10-100 mg/5 mL liquid 5 ml PO Q6H PRN (Reason: cough) Qty: 236 RF: 0 baclofen 20 mg tablet 20 mg PO HS Qty: 90 RF: 3 bumetanide 2 mg tablet 2 mg PO DAILY Qty: 90 RF: 3 montelukast [Singulair] 10 mg tablet 10 mg PO HS Qty: 90 RF: 3 omeprazole 40 mg capsule,delayed release(DR/EC) 40 mg PO QAM Qty: 90 RF: 3 potassium chloride 20 mEq tablet extended release 20 meq PO DAILY Qty: 90 RF: 3 prednisone 20 mg tablet 20 mg PO DAILY Qty: 90 RF: 1 spironolactone 100 mg tablet 100 mg PO DAILY 90 Days Qty: 90 RF: 3 warfarin 10 mg tablet 10 mg PO SUMOWEFRSA Qty: 90 RF: 3 warfarin 10 mg tablet 15 mg PO TUTH Qty: 90 RF: 1 amoxicillin-pot clavulanate 875-125 mg tablet 1 tab PO BID Qty: 30 RF: 0 cyanocobalamin (vitamin B-12) 1,000 mcg/mL solution See Rx Instructions .ROUTE .COMPLEX Qty: 4 RF: 3 alprazolam [Xanax] 2 mg tablet 2 mg PO HS Qty: 30 RF: 0 hydrocodone-acetaminophen 10-325 mg tablet 1 tab PO Q6H PRN (Reason: Pain) Qty: 30 RF: 0 zolpidem 10 mg tablet 10 mg PO HS PRN (Reason: insomnia) Qty: 30 RF: 0 (DME) CPAP Machine Misc See Rx Instructions .MEDSUPPLY Qty: 1 RF: 0 (DME) Oxygen Home Liters Per Minute See Rx Instructions .ROUTE .MEDSUPPLY Qty: 1 RF: 0 alprazolam 1 mg tablet 1 mg PO TID PRN (Reason: anxiety) Qty: 90 RF: 0 ipratropium-albuterol 0.5 mg-3 mg(2.5 mg base)/3 mL solution for nebulization 3 ml INHALATION Q4H Qty: 540 RF: 3 (DME) misc Misc See Rx Instructions .ROUTE .MEDSUPPLY Qty: 1 RF: 0 Wheelchair (Manual) Device See Rx Instructions .ROUTE .COMPLEX Qty: 1 RF: 0 Fasenra 30 mg/mL syringe 30 mg subcut MONTHLY RF: 0 magnesium oxide 400 mg (241.3 mg magnesium) tablet 400 mg PO BID Qty: 180 RF: 3 cetirizine [Zyrtec] 10 mg Tablet 10 mg PO HS RF: 0 fluticasone propionate [Flonase Allergy Relief] 50 mcg/actuation [place],Suspension 1 spray intranasal DAILY RF: 0 Spiriva Respimat 1.25 mcg/actuation Mist 1 puff INHALATION BID RF: 0 fexofenadine [Susanne Allergy] 180 mg tablet 180 mg PO DAILY RF: 0 polyethylene glycol 3350 [Miralax] 17 gram Powder In Packet 17 g PO DAILY Qty: 1 RF: 0 Referrals Referrals: Ramon العراقي MD [Primary Care Provider] - Discharge Problem: Acute and chronic respiratory failure Qualifiers: Respiratory failure complication: hypoxia Qualified Code(s): J96.21 - Acute and chronic respiratory failure with hypoxia
[2022-01-08] MEDS ORDERED: ALBUT/IPRATROP 3MG/0.5MG NEB 3 ML VIAL ONE (14:00)
[2022-01-08 14:19] LABS: Basophils # (auto) 0.01 K/uL (0-0.2); Basophils % (auto) 0.1 %; Hematocrit (blood only) 46.8 % (37-47); Hemoglobin 15.3 g/dL (12.0-16.0); Immature Granulocytes # (auto) 0.02 K/uL (0.00-0.02); Immature Granulocytes % (auto) 0.2 %; Lymphocytes # (auto) 4.31 K/uL (1.2-3.4); Lymphocytes % (auto) 35.2 %; Mean Corpuscular Hemoglobin 30.7 pg (25-34); Mean Corpuscular Hgb Conc 32.7 g/dL (32-36); Monocytes # (auto) 0.65 K/uL (0.11-0.59); Monocytes % (auto) 5.3 %; Neutrophils # (auto) 7.27 K/uL (1.4-6.5); Neutrophils % (auto) 59.2 %; Platelet Count 358 K/uL (130-400); RDW Standard Deviation 50.6 fL (36.4-46.3); Red Blood Count 4.98 M/uL (4.2-5.4); White Blood Count 12.26 K/uL (4.8-10.8)
[2022-01-08] MEDS ORDERED: ALBUT/IPRATROP 3MG/0.5MG NEB 3 ML VIAL NEB ONE (14:24)
[2022-01-08 14:35] LABS: Base Excess VBG 5.1 mEq/L; pH VBG 7.54 (7.36-7.41)
--- NOTE | 2022-01-08 14:37 | XRay Report ---
SINGLE VIEW CHEST CLINICAL HISTORY: Sepsis. FINDINGS: 2 AP, portable, upright chest radiographs are compared to study dated 05/22/2021 and correl ated with chest CT dated 04/24/2020. The examination is degraded by portable technique, apical lordoti c positioning, and large body habitus. The cardiomediastinal silhouette is top normal for projection. There is bibasilar atelectasis. The lungs and pleural spaces are otherwise grossly clear. No pneumot horax is seen. The bony thorax is grossly intact. IMPRESSION: No active disease in the chest. ACT 112: Negative or not required by law. Electronically signed by: Arias Montenegro M.D. 01/08/2022 2:35 PM
--- NOTE | 2022-01-08 14:38 | XRay Report ---
RIGHT TIBIA AND FIBULA 2 VIEWS CLINICAL HISTORY: Right leg pain and erythema. FINDINGS: AP and lateral views of the right tibia and fibula are correlated with radiographs of the r ight knee dated 09/08/2013. The skeletal structures are well mineralized. There is no radiographic bk dence of fracture. There is no bony erosion or periostitis. The knee and ankle joints are grossly bhaskar ntained. There is a large plantar calcaneal enthesophyte. Soft tissue edema is present throughout the right leg. No soft tissue gas or radiodense foreign body is identified. IMPRESSION: Soft tissue swelling with no acute bony abnormality identified. Electronically signed by: Arias Montenegro M.D. 01/08/2022 2:36 PM
[2022-01-08] MEDS ORDERED: LORazepam 2 MG/1 ML VIAL IV STA (14:41)
[2022-01-08 14:47] LABS: Anion Gap 10 (3-11); Blood Urea Nitrogen 13 mg/dl (6-23); Carbon Dioxide 27 mmol/L (21-32); Chloride 100 mmol/L (98-107); Sodium 137 mmol/L (136-145)
[2022-01-08 14:48] LABS: Alanine Aminotransferase 30 U/L (7-52); Albumin Globulin Ratio 1.1 (0.9-2); Alkaline Phosphatase 79 U/L (34-104); BUN Creatinine Ratio 18.8 (10-20); Bilirubin,Total 0.6 mg/dl (0.2-1.0); Calcium 9.4 mg/dl (8.5-10.1); Est GFR (African American) 118.5 ml/min; Est GFR (Non-African American) 102.2 ml/min; Globulin 3.5 gm/dl (2.5-4.0); Glucose 110 mg/dl (70-99(Fasting)); Magnesium 2.2 mg/dl (1.7-2.4); Total Protein 7.5 gm/dl (6.0-8.3); Troponin I High Sensitivity 4.8 pg/ml (0-14)
[2022-01-08 15:19] LABS: Partial Thromboplastin Ratio 0.9; Partial Thromboplastin Time 23.5 Seconds (21.0-31.0); Prothrombin Time 10.3 Seconds (9.0-12.0)
[2022-01-08] MEDS ORDERED: MoRPHine SULFATE 4 MG/ML 1 ML CARP\\VIAL IV STA (15:44)
--- NOTE | 2022-01-08 16:27 | Electrocardiogram Report ---
Test Reason : Blood Pressure : / mmHG Vent. Rate : 079 BPM Atrial Rate : 079 BPM P-R Int : 142 ms QRS Dur : 078 ms QT Int : 412 ms P-R-T Axes : 000 028 041 degrees QTc Int : 472 ms Poor data quality, interpretation may be adversely affected Normal sinus rhythm Poor R wave progression, consider anterior HI vs. lead placement vs. LVH Abnormal ECG When compared with ECG of 22-MAY-2021 16:26, Premature supraventricular complexes are no longer Present Confirmed by Adrian Stuart ([id number]) on 01/08/2022 4:26:58 PM Referred By: REFERRED SELF Confirmed By:Adrian Stuart
[2022-01-08] MEDS ORDERED: methylPREDNISolone 125 MG/2 ML VIAL IV STA (17:11)
[2022-01-08] MEDS ORDERED: SODIUM CHLORIDE 0.9% 1000ML 500 ML IV ONE (17:27)
[2022-01-08] MEDS ORDERED: OPTIRAY 320 125ml IV ONE (17:27)
[2022-01-08] MEDS ORDERED: CEFEPIME 2,000 MG/20 ML VIAL IV STA (17:29)
[2022-01-08] MEDS ORDERED: VANCOMYCIN CONSULT ACTIVE PRN ×2 (17:29→21:33)
[2022-01-08] MEDS ORDERED: VANCOMYCIN HCL 2,750 MG in SODIUM CHLORIDE 0.9% 500 ML IV ONE (17:29)
[2022-01-08 17:31] LABS: D Dimer 250 ug/L FEU (0-500)
--- NOTE | 2022-01-08 17:41 | CT Scan Report ---
CT angio chest PE protocol CT DOSE: 1147.89 mGy.cm HISTORY: 51 years-old Female with PE. Acute shortness of breath with chest pain TECHNIQUE: Multiple CTA images of the chest were obtained after the intravenous administration of 120 ml Optiray. Coronal and sagittal MIPS were obtained from the axial data set and were submitted for review. All measurements were obtained according to NASCET criteria. A dose lowering technique was u tilized adhering to the principles of ALARA. COMPARISON: CTA chest 04/24/2020 FINDINGS: CTA: The heart is mildly enlarged. Mediastinal lipomatosis. Bovine morphology of the thoracic aortic arch without aneurysm or dissection. Suboptimal evaluation of the pulmonary artery secondary to majority o f the contrast bolus within the SVC. No central pulmonary emboli are identified. CT CHEST: No dominant thyroid nodule is seen. No pathologically adenopathy by CT size criteria. No pneumothora x, pleural effusion or overt pulmonary edema. Mild subsegmental bibasilar atelectasis. Bronchial wall thickening with mild bibasilar mucous plugging. There are no suspicious pulmonary nodules or masses identified. No acute process of the imaged upper abdomen. The liver appears enlarged with suggestion of mild hepa tic steatosis. Unremarkable soft tissues. The osseous structures appear intact. IMPRESSION: 1. Limited evaluation of the pulmonary arterial tree secondary to contrast bolus timing. No central p ulmonary emboli identified. 2. Bronchial wall thickening with mucous plugging suggestive of bronchitis versus reactive airway dis ease. Mild associated atelectasis. 3. No airspace consolidation typical for pneumonia. ACT 112: Negative or not required by law. The above report was generated using voice recognition software. It may contain grammatical, syntax o r spelling errors. Electronically signed by: Mark Dennis M.D. 01/08/2022 5:39 PM
--- NOTE | 2022-01-08 17:45 | CT Scan Report ---
CT tib/fib RT w con HISTORY: 51 years-old Female Erythema, pain, blister formation, eval for infec. Acute pain and swell ing of the right lower leg COMPARISON: Right tibia and fibula radiographs of same day TECHNIQUE: Multiple axial CT images of the right tibia and fibula were obtained following the intrave nous administration of Optiray. A dose lowering technique was used consistent with the principals of DAPHNE. FINDINGS: Trace joint effusion of the knee. Mild nonspecific pretibial subcutaneous edema. No soft tissue mass, drainable fluid collection or intramuscular hematoma. Tendons and ligaments of the knee and ankle ar e not well evaluated by CT technique. Osteoarthritis of the knee is moderate within the medial compartment. Moderate sized enthesophytes of the calcaneus. No acute fracture, dislocation, osseous erosion or osteochondral defect. IMPRESSION: 1. No acute fracture, dislocation or osseous erosion. 2. Trace joint effusion of the knee. 3. Mild nonspecific subcutaneous edema of the pretibial tissues. No focal fluid collection. ACT 112: Negative or not required by law. The above report was generated using voice recognition software. It may contain grammatical, syntax o r spelling errors. Electronically signed by: Mark Dennis M.D. 01/08/2022 5:42 PM
[2022-01-08] MEDS ORDERED: ONDANSETRON INJ 2 MG/ML 2 ML VIAL IV PRN (18:14)
[2022-01-08] MEDS ORDERED: ACETAMINOPHEN 325 MG TAB PO PRN (18:14)
--- NOTE | 2022-01-08 18:26 | History & Physical Report ---
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 Dose: 200 mls/hr Documented by: Heparin Sodium/Dextrose (Heparin Sodium/Dextrose) 25,000 units in 500 mls @ 0.02 mls/hr IV .Q24H [facility]; Protocol Stop: 02/07/22 19:14 Lidocaine (Lidocaine 5% 1 Patch) [facility] Stop: 02/07/22 19:14 Miscellaneous (Remove Lidoderm Patch) 1 ea N/A DAILY@2100 [facility] Stop: 02/07/22 20:59 Miscellaneous Information (Vancomycin Consult Active) 1 ea N/A UD PRN PRN Reason: Consult Stop: 02/07/22 17:28 Ondansetron HCl (Ondansetron Inj 2 Mg/Ml 2 Ml Vial) 4 mg IV Q6H PRN PRN Reason: Nausea Stop: 02/07/22 18:13 Vancomycin HCl 2,750 mg/ (Sodium Chloride) 555 mls @ 200 mls/hr IV NOW ONE Stop: 01/08/22 20:15 Last Admin: 01/08/22 18:22 Dose: 200 mls/hr Documented by: [id number] Discontinued Medications Albuterol (Albut/Ipratrop 3mg/0.5mg Neb 3 Ml Vial) Confirm Administered Dose 12 ml .ROUTE .STK-MED ONE Stop: 01/08/22 14:01 Last Admin: 01/08/22 14:07 Dose: 12 ml Documented by: [id number] Albuterol (Albut/Ipratrop 3mg/0.5mg Neb 3 Ml Vial) 12 ml NEB ONE ONE; Protocol Stop: 01/08/22 14:25 Last Admin: 01/08/22 15:27 Dose: Not Given Documented by: [id number] Sodium Chloride (Nss 1000ml) 500 mls @ 999 mls/hr IV .Q31M ONE Stop: 01/08/22 17:57 Last Infusion: 01/08/22 18:21 Dose: 0 mls/hr Documented by: [id number] Admin: 01/08/22 17:28 Dose: 999 mls/hr Documented by: [id number] Cefepime HCl (Maxipime) 2,000 mg in 20 mls @ 5 mls/min IV NOW STA; Protocol Stop: 01/08/22 17:32 Last Admin: 01/08/22 18:22 Dose: 5 mls/min Documented by: [id number] Ioversol (Optiray 320 125ml) 120 ml IV ONCE ONE Stop: 01/08/22 17:28 Last Admin: 01/08/22 17:27 Dose: 120 ml Documented by: [id number] Lorazepam (Lorazepam 2 Mg/1 Ml Vial) 1 mg IV NOW STA; Protocol Stop: 01/08/22 14:42 Last Admin: 01/08/22 14:51 Dose: 1 mg Documented by: [id number] Methylprednisolone (Methylprednisolone 125 Mg/2 Ml Vial) 125 mg IV NOW STA Stop: 01/08/22 17:12 Last Admin: 01/08/22 17:28 Dose: 125 mg Documented by: [id number] Morphine Sulfate (Morphine Sulfate 10 Mg/Ml Carp/Vial) 6 mg IV NOW STA Stop: 01/08/22 13:55 Last Admin: 01/08/22 14:00 Dose: 6 mg Documented by: [id number] Morphine Sulfate (Morphine Sulfate 4 Mg/Ml 1 Ml Carp\\Vial) 4 mg IV NOW STA Stop: 01/08/22 15:45 Last Admin: 01/08/22 15:52 Dose: 4 mg Documented by: [id number] Ondansetron HCl (Ondansetron Inj 2 Mg/Ml 2 Ml Vial) 4 mg IV NOW STA Stop: 01/08/22 13:55 Last Admin: 01/08/22 14:00 Dose: 4 mg Documented by: [id number] ECG Additional Comments: Normal sinus rhythm Poor R wave progression, consider anterior SC vs. lead placement vs. LVH Abnormal ECG When compared with ECG of 22-MAY-2021 16:26, Premature supraventricular complexes are no longer Present Confirmed by Adrian Stuart ([id number]) on 01/08/2022 4:26:58 PM Code Status & VTE Plan Code Status CODE: FULL VTE: SCDS, Heparin infusion, VTE Prophylaxis Plan VTE Prophylaxis will be ordered: Yes Supervising Physician Co-Signing Physician Notes Patient seen and examined at bedside. Obtained a physical examination and history during face to face encounter. I discussed plan of care with BRANDON Vaca I reviewed above note and agree with it. Patient admitted for asthma exacerbation. Placed on magnesium. rescue inhalers PG Care Time/CCT Total # of Minutes Spent Total Time Spent with Patient: Total time spent is greater than 50% in coordination of care (as documented) at patient's floor/unit and/or counseling patient: 40 minutes critical care time managing and evaluating severe asthma Coding Level of Care Code 35738 Initial Inpt Care Lvl 3 Diagnoses Asthma exacerbation J45.901 Cellulitis L03.90 Anxiety F41.9 Morbid obesity with BMI of 50.0-59.9, adult E66.01; Z68.43 Chronic back pain M54.9; G89.29 Back pain laterality: left Back pain location: back pain in unspecified location Subtherapeutic international normalized ratio (INR) R79.1 GERD (gastroesophageal reflux disease) K21.9 Right-sided heart failure I50.810 OLIMPAI (obstructive sleep apnea) G47.33 (1) Chronic back pain Back pain laterality: left Back pain location: back pain in unspecified location Qualified Code(s): M54.9 - Dorsalgia, unspecified; G89.29 - Other chronic pain
[2022-01-08 18:45] LABS: Influenza A virus by PCR Negative (Neg); Influenza B virus by PCR Negative (Neg); RSV by PCR Negative (Neg); SARS CoV2 RNA(COVID-19) InHosp NEGATIVE (Negative)
[2022-01-08] MEDS ORDERED: Heparin IV Adult Wt-Based Standard *NO* Bolus Protocol IV ONE (18:51)
[2022-01-08] MEDS ORDERED: Heparin IV Adult Wt-Based Standard WITH Bolus Protocol IV STA (18:51)
[2022-01-08] MEDS ORDERED: FUROSEMIDE INJ 20 MG/2 ML VIAL IV ONE (19:15)
[2022-01-08] MEDS ORDERED: Heparin IV Adult Wt-Based Standard *NO* Bolus Protocol IV SCH (19:45)
[2022-01-08 19:46] LABS: Base Excess VBG -1.6 mEq/L; Oxygen Saturation VBG 72.8 %; pH VBG 7.31 (7.36-7.41)
[2022-01-08] MEDS ORDERED: HYDROcodone/ACETAMINOPHEN 10/325 TAB PO STA (19:49)
[2022-01-08] MEDS: LIDOCAINE 5% 1 PATCH TD SCH (20:27)
[2022-01-08] MEDS ORDERED: ALBUTEROL 0.083% NEBU SOLN 3 ML VIAL NEB PRN (21:33)
[2022-01-08] MEDS: HEPARIN SODIUM/DEXTROSE 25,000 UNITS/500 ML BAG IV SCH (22:01)
[2022-01-08] MEDS: ALPRAZolam 0.5 MG TABLET PO PRN (22:08)
[2022-01-08] MEDS: ZOLPIDEM TARTRATE 10 MG TAB PO PRN (22:08)
[2022-01-08] MEDS ORDERED: DAPTOmycin 450 MG in SYRINGE 0 ML IV SCH (22:30)
[2022-01-08] MEDS: methylPREDNISolone 40 MG in SYRINGE 0 ML IV SCH (23:09)
[2022-01-08] MEDS: BACLOFEN 20 MG TAB PO SCH (23:09)
[2022-01-08] MEDS: MONTELUKAST SODIUM 10 MG TABLET PO SCH (23:10)
[2022-01-09] MEDS: HYDROcodone/ACETAMINOPHEN 10/325 TAB PO PRN ×4 (02:54→20:44)
[2022-01-09] MEDS: ALPRAZolam 0.5 MG TABLET PO PRN ×3 (04:43→20:45)
[2022-01-09] MEDS: CEFEPIME 2,000 MG in SYRINGE 0 ML IV SCH ×2 (05:17→18:11)
[2022-01-09] MEDS: methylPREDNISolone 40 MG in SYRINGE 0 ML IV SCH ×3 (05:53→21:14)
[2022-01-09 06:29] LABS: Hematocrit (blood only) 42.8 % (37-47); Hemoglobin 13.8 g/dL (12.0-16.0); Immature Granulocytes # (auto) 0.01 K/uL (0.00-0.02); Immature Granulocytes % (auto) 0.1 %; Lymphocytes # (auto) 0.74 K/uL (1.2-3.4); Lymphocytes % (auto) 8.4 %; Mean Corpuscular Hemoglobin 30.3 pg (25-34); Mean Corpuscular Hgb Conc 32.2 g/dL (32-36); Mean Corpuscular Volume 93.9 fL (80-100); Mean Platelet Volume 10.1 fL (7.4-10.4); Monocytes # (auto) 0.05 K/uL (0.11-0.59); Monocytes % (auto) 0.6 %; Neutrophils # (auto) 8.03 K/uL (1.4-6.5); Neutrophils % (auto) 90.9 %; Platelet Count 323 K/uL (130-400); RDW Coefficient of Variation 14.8 % (11.5-14.5); Red Blood Count 4.56 M/uL (4.2-5.4); White Blood Count 8.83 K/uL (4.8-10.8)
[2022-01-09] MEDS: ALBUT/IPRATROP 3MG/0.5MG NEB 3 ML VIAL NEB SCH ×3 (07:15→18:18)
[2022-01-09 07:21] LABS: Partial Thromboplastin Ratio 4.7; Prothrombin Time 10.5 Seconds (9.0-12.0)
--- NOTE | 2022-01-09 08:26 | Hospitalist Progress Note ---
Date of Service January 09, 2022 Assessment & Plan (1) Acute and chronic respiratory failure: (2) Cellulitis: (3) Asthma exacerbation: (4) Right-sided heart failure: (5) Recurrent pulmonary emboli: (6) Anxiety: (7) Morbid obesity with BMI of 50.0-59.9, adult: (8) Chronic back pain: (9) GERD (gastroesophageal reflux disease): (10) Subtherapeutic international normalized ratio (INR): Plan: Jessica is a 51 year old female w/ PmHx of Morbid obesity, DVT/PE on warfarin, rectus sheath hematoma, severe asthma on Fasenra, chronic back pain, OLIMPIA, anemia admitted for asthma exacerbation and cellulitis. Acute on chronic hypoxic respiratory failure -continue O2 supplementation Asthma exacerbation: -Patient with hx of asthma, recent increase in need for duoneb and albuterol. -pH 7.54 on VBG upon arrival, placed on BiPaP with improvement. -CTA w/o evidence of PE but with bronchial wall thickening with mucous plugging suggestive bronchitis vs reactive airway -Given 125mg IV Solu-Medrol in ED, continued on 40mg IV Q8h -Duoneb Q6h scheduled for 24 hrs, albuterol Q2h PRN -Continue home Symbicort, Spiriva, montelukast, cetirizine. -Consulted pulmonology considering long standing complicated history -Continue supplemental O2 PRN, night time CPAP. Cellulitis: -WBC 12.26, lactate 2.7, procalcitonin 0.05 -Multiple erythematous wounds, ulcerative and w/ some pus drainage. -Blood cultures negative after 24 hours. -XR Tibia/Fibula R leg w/ soft tissue swelling w/ no acute bony abnormality identified. -CT R Tib/Fib w/ contrast w/ mild nonspecific subcutaneous edema of pretibial tissues. -Pt unable to get Duplex lower extremities due to pain. -Started on Daptomycin and Cefepime in ED - D/C'ed Daptomycin -Wound care consult placed Subtherapeutic INR: -Missed dose due to holiday drinking. -INR 1.0 on arrival. -Given heparin standard w/o bolus due to hx of rectal sheath hematoma -Will restart Warfarin at 10mg tonight and check INR tomorrow AM. -Change dose based on INR. R Sided Heart Failure: -Pitting edema on exam. -On Bumex 2mg PO daily at home. -Given 2mg IV Bumex today. -Continue to diurese PRN. -Monitor O2, I&Os. OLIMPIA: -Continue home CPAP -She is on CPAP 5-7 CM H20 at [facility] with 2L oxygen bled in Anxiety: -Continue Ativan PRN Morbid Obesity: -Most likely obesity hypoventilation syndrome contributing to breathing difficulties. -Encourage lifestyle modifications. Chronic Back Pain: -Continue with her home hydrocodone -Lidocaine patch added. GERD: -Continue home omeprazole. DVT Prophylaxis: Heparin transitioning to Warfarin. AM INR. F/E/N/GI: Carb consistent DM2. Code Status: Full Code. Dispo: Med/Surg Tele Admission and Anticipated Discharge Date Admission Date: January 08, 2022 Supervising Physician Co-Signing Physician Notes Resident Physician Supervision Note: I independently interviewed and examined the patient and verified the flores history and physical, reviewed labs and image studies and agree with resident Dr. Montero findings and care plan. Subjective Patient seen at bedside and states she's always short of breath and came into the ED mainly for her shortness of breath. She states she woke up yesterday morning with an asthma attack and shortness of breath, especially on exertion. Patient states she's on prednisone daily and this has effected her weight and fluid retention significantly, necessitating her to take Bumex at home daily. She had an technical project coordinator she followed with for management of her asthma however they practice out of state ([place]). In terms of her leg pain she has had chronic leg pain bilaterally, she thinks may be due to chronic steroid use fluid retention to the area. She states she could not get the duplex ultrasound done due to the amount of pain from pressing the probe. Patient states she has had multiple DVT's/PE's in the past for which she's on anticoagulation. She states she's been on anticoagulation for 15 years. She follows with Dr. العراقي as an outpatient and will check her INR at home every two weeks and report in the value. Denies any fevers, chills, chest pain, nausea. Review of Systems Constitutional: as per Subjective / HPI Physical Exam Constitutional: WD/WN, vitals as above + obese Eyes: PERRL, conjunctivae normal, anicteric sclerae Respiratory: Mild bilateral inspiratory and expiratory wheezing throughout lung rivero. Cardiovascular: S1 and S2, RRR, no murmurs. 2+ pitting edema in the legs bilaterally. Gastrointestinal (Abdomen): normal bowel sounds, soft, nontender, no hepatosplenomegaly Skin: Linear pattern of pustular draining wound on right medial calf with surrounding erythema and tenderness. 2-3 wounds covered in dressing on left leg at distal calf. Psychiatric: A+Ox3, euthymic affect Results & Data Results & Data ([facility]) Vital Signs (Past 12 Hours) Vital Signs Temp Pulse Pulse Pulse Resp BP BP 01/09/22 07:51 75 01/09/22 07:16 87 19 01/09/22 07:15 84 18 01/09/22 03:36 68 20 149/81 H 01/09/22 02:40 18 01/09/22 01:21 76 01/08/22 23:23 91 H 26 H 01/08/22 23:20 91 H 26 H 01/08/22 22:14 36.6 C 99 H 18 179/99 H 01/08/22 22:00 90 Pulse Ox 01/09/22 07:51 01/09/22 07:16 96 01/09/22 07:15 96 01/09/22 03:36 96 01/09/22 02:40 98 01/09/22 01:21 01/08/22 23:23 99 01/08/22 23:20 99 01/08/22 22:14 96 01/08/22 22:00 Resident Activity Tracking Resident Involvement: Resident Care Provided Care Provided: Adult Hospital Medicine (1) Acute and chronic respiratory failure Respiratory failure complication: hypoxia Qualified Code(s): J96.21 - Acute and chronic respiratory failure with hypoxia (2) Chronic back pain Back pain laterality: left Back pain location: back pain in unspecified location Qualified Code(s): M54.9 - Dorsalgia, unspecified; G89.29 - Other chronic pain
[2022-01-09] MEDS: UMECLIDINIUM BROMIDE 62.5MCG/BLISTER 7 PUFFS/INHALER INH SCH (08:45)
[2022-01-09] MEDS: FLUTICASONE/VILANTEROL 200/25MCG 14 PUFFS/INHALER INH SCH (08:46)
[2022-01-09] MEDS: FEXOFENADINE HCL 180 MG TAB PO SCH (08:47)
[2022-01-09] MEDS: POTASSIUM CHLORIDE CRTAB 20 MEQ TABCR PO SCH (08:47)
[2022-01-09] MEDS: MAGNESIUM OXIDE 400 MG TAB PO SCH (08:47)
[2022-01-09] MEDS: SPIRONOLACTONE 100 MG TAB PO SCH (08:47)
[2022-01-09] MEDS: PANTOprazole 40 MG TAB PO SCH (08:48)
[2022-01-09] MEDS ORDERED: VANCOMYCIN HCL 1 MG in DEXTROSE 5% 100 ML IV SCH (09:00)
[2022-01-09] MEDS: LIDOCAINE 5% 1 PATCH TD SCH (10:12)
[2022-01-09] MEDS ORDERED: BUMETANIDE 2 MG in SYRINGE 0 ML IV ONE (11:00)
[2022-01-09 12:13] LABS: BUN Creatinine Ratio 17.8 (10-20); Calcium 8.6 mg/dl (8.5-10.1); Creatinine Clr Calc Pharmacy 164.7 ml/min; Est GFR (African American) 112.1 ml/min; Est GFR (Non-African American) 96.7 ml/min; Potassium 3.7 mmol/L (3.5-5.1)
[2022-01-09] MEDS ORDERED: MoRPHine SULFATE 2 MG/ML CARP IV STA (13:14)
[2022-01-09] MEDS: HEPARIN SODIUM/DEXTROSE 25,000 UNITS/500 ML BAG IV SCH (13:45)
[2022-01-09 16:19] LABS: Partial Thromboplastin Ratio 1.1
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
[2022-01-09] MEDS ORDERED: HEPARIN SOD (PORCINE) 1000 UNIT/ML IV ONE (18:00)
[2022-01-09] MEDS ORDERED: WARFARIN SOD 10 MG TAB PO ONE (18:45)
[2022-01-09] MEDS: MONTELUKAST SODIUM 10 MG TABLET PO SCH (20:47)
[2022-01-09] MEDS: BACLOFEN 20 MG TAB PO SCH (20:47)
[2022-01-09 23:54] LABS: Partial Thromboplastin Ratio 1.1; Partial Thromboplastin Time 30.8 Seconds (21.0-31.0)
[2022-01-10] MEDS: ALBUT/IPRATROP 3MG/0.5MG NEB 3 ML VIAL NEB SCH ×4 (00:27→19:33)
[2022-01-10] MEDS: HYDROcodone/ACETAMINOPHEN 10/325 TAB PO PRN ×3 (03:16→20:28)
[2022-01-10] MEDS: HEPARIN SODIUM/DEXTROSE 25,000 UNITS/500 ML BAG IV SCH ×2 (03:24→14:40)
[2022-01-10] MEDS: CEFEPIME 2,000 MG in SYRINGE 0 ML IV SCH ×2 (05:04→17:26)
[2022-01-10 07:11] LABS: Hematocrit (blood only) 41.7 % (37-47); Hemoglobin 13.7 g/dL (12.0-16.0); Immature Granulocytes # (auto) 0.05 K/uL (0.00-0.02); Immature Granulocytes % (auto) 0.4 %; Lymphocytes % (auto) 7.6 %; Mean Corpuscular Hemoglobin 30.4 pg (25-34); Mean Corpuscular Hgb Conc 32.9 g/dL (32-36); Mean Corpuscular Volume 92.5 fL (80-100); Mean Platelet Volume 9.9 fL (7.4-10.4); Monocytes # (auto) 0.65 K/uL (0.11-0.59); Neutrophils # (auto) 11.38 K/uL (1.4-6.5); Platelet Count 294 K/uL (130-400); RDW Coefficient of Variation 14.6 % (11.5-14.5); RDW Standard Deviation 49.3 fL (36.4-46.3); Red Blood Count 4.51 M/uL (4.2-5.4); White Blood Count 13.08 K/uL (4.8-10.8)
[2022-01-10 07:20] LABS: Partial Thromboplastin Ratio 1.5; Partial Thromboplastin Time 40.5 Seconds (21.0-31.0)
[2022-01-10 07:56] LABS: Calcium 9.3 mg/dl (8.5-10.1); Potassium 4.6 mmol/L (3.5-5.1)
[2022-01-10 08:09] LABS: Creatinine Clr Calc Pharmacy 189.7 ml/min; Est GFR (African American) 122.1 ml/min; Est GFR (Non-African American) 105.3 ml/min
--- NOTE | 2022-01-10 08:11 | Hospitalist Progress Note ---
Date of Service January 10, 2022 Assessment & Plan (1) Acute and chronic respiratory failure: Plan: Jessica is a 51 year old female w/ PmHx of Morbid obesity, DVT/PE on warfarin, rectus sheath hematoma, severe asthma on Fasenra, chronic back pain, OLIMPIA, anemia admitted for asthma exacerbation and cellulitis. Acute on chronic hypoxic respiratory failure -pH 7.54 on VBG upon arrival, placed on BiPAP with improvement. -Patient currently breathing room air at 92%. Continue to monitor -Supplemental O2 PRN, night time CPAP. Asthma exacerbation: improving -Patient with hx of asthma, recent increase in need for DuoNeb and albuterol. -CTA w/o evidence of PE but with bronchial wall thickening with mucous plugging suggestive bronchitis vs reactive airway -Given 125mg IV Solu-Medrol in ED, continued on 40mg IV Q8h -DuoNeb Q6h scheduled q24h, albuterol Q2h PRN -Continue home Symbicort, Spiriva, montelukast, cetirizine. -Consulted pulmonology: respiratory therapy-IS, flutter valve added today. Cellulitis -WBC 12.26, lactate 2.7, procalcitonin 0.05 -Multiple erythematous wounds, ulcerative and w/ some pus drainage. -Blood cultures negative after 24 hours. -XR Tibia/Fibula R leg w/ soft tissue swelling w/ no acute bony abnormality identified. -CT R Tib/Fib w/ contrast w/ mild nonspecific subcutaneous edema of pretibial tissues. -Pt unable to get Duplex lower extremities due to pain. -Started on Daptomycin and Cefepime in ED - D/C'ed Daptomycin. Currently on Cefepime 2g q12h. -WBC 13.08 today, likely 2/2 IV steroids. Trend AM CBC. -Assess cellulitis daily, follow with wound care. -Wound care consult placed- daily dressings. Suggested outpatient appt with wound care after d/c. pt amenable. Subtherapeutic INR Recurrent thromboembolism -Missed dose due to holiday drinking. -INR 1.0 on arrival. 1.0 today -Given heparin standard w/o bolus due to hx of rectal sheath hematoma. Continue heparin bridge until INR therapeutic. -Restarted Warfarin at 10mg overnight. AM INR-1.0. Giving 15 mg dose nightly until INR therapeutic. R Sided Heart Failure -Pitting edema on exam. -On Bumex 2mg PO daily at home. -Gave 2mg IV Bumex yesterday. -Continue oral home dose. -Monitor O2, I&Os. OLIMPIA: -Continue home CPAP -She is on CPAP 5-7 CM H20 at night with 2L oxygen bled in Anxiety: -Continue Ativan PRN Morbid Obesity: -Most likely obesity hypoventilation syndrome contributing to breathing difficulties. -Encourage lifestyle modifications. Chronic Back Pain: -Continue with her home hydrocodone -Lidocaine patch added. GERD: -Continue home omeprazole. DVT Prophylaxis: Heparin transitioning to Warfarin. INR-1.0 F/E/N/GI: Carb consistent DM2. Code Status: Full Code. Dispo: Med/Surg Tele (2) Cellulitis: (3) Asthma exacerbation: (4) Right-sided heart failure: (5) Recurrent pulmonary emboli: (6) Anxiety: (7) Morbid obesity with BMI of 50.0-59.9, adult: (8) Chronic back pain: (9) GERD (gastroesophageal reflux disease): (10) Subtherapeutic international normalized ratio (INR): Admission and Anticipated Discharge Date Admission Date: January 08, 2022 Supervising Physician Co-Signing Physician Notes Resident Physician Supervision Note: I independently interviewed and examined the patient and verified the flores history and physical, reviewed labs and image studies and agree with resident Dr. Arvizu findings and care plan. Subjective Patient asleep but upright in bed this morning. Upon waking, she reports insomnia and some fatigue. She also is coughing up more phlegm. She denies SOB, or leg pain. Review of Systems Review of Systems: All systems reviewed & are unremarkable except as noted in HPI & below Physical Exam Physical Exam: General: Morbidly obese you/middle aged woman who is in no acute distress. HEENT: Normocephalic, atraumatic. EOM intact. Good conjugate gaze. Nares patent. Moist mucosal membranes. Bilateral malar erythema. Neck: Supple. No lymphadenopathy. Normal ROM. CV: Regular rate and rhythm. Normal S1 and S2. No murmurs gallops or rubs. Bilateral pitting pedal edema to the knees. Respiratory: Normal respiratory effort. Prolonged expiratory wheeze heard on auscultation. Abdomen: Soft, protuberant abdomen. No bruits heard on auscultation. No tendern ess to deep palpation. No guarding or rebound. Extremities: Capillary refill <2 sec. 2+ dp equal bilaterally. Skin: Diffuse erythema bilaterally in the lower extremity, from the dorsum of the foot to mid no. Erythematous areas also warm to the touch. 3 healing ulcers bilaterally at the lower leg (covered with wound dressings: one on the right, lower leg anteriorly (no); two on the left lower leg anterior and posteriorly. TTP diffusely across erythematous lower extremity. Results & Data Results & Data ([facility]) Vital Signs (Past 12 Hours) Vital Signs Temp Pulse Pulse Resp BP Pulse Ox 01/10/22 03:25 36.5 C 81 20 157/90 H 96 01/10/22 00:29 71 19 98 01/09/22 23:01 36.5 C 77 20 158/101 H 98 01/09/22 22:40 77 29 H 98 01/09/22 22:17 89 Resident Activity Tracking Resident Involvement: Resident Care Provided Care Provided: Adult Hospital Medicine (1) Acute and chronic respiratory failure Respiratory failure complication: hypoxia Qualified Code(s): J96.21 - Acute and chronic respiratory failure with hypoxia (2) Chronic back pain Back pain laterality: left Back pain location: back pain in unspecified location Qualified Code(s): M54.9 - Dorsalgia, unspecified; G89.29 - Other chronic pain
[2022-01-10] MEDS: PANTOprazole 40 MG TAB PO SCH (08:14)
[2022-01-10] MEDS: FEXOFENADINE HCL 180 MG TAB PO SCH (08:14)
[2022-01-10] MEDS: POTASSIUM CHLORIDE CRTAB 20 MEQ TABCR PO SCH (08:14)
[2022-01-10] MEDS: ALPRAZolam 0.5 MG TABLET PO PRN ×3 (08:14→20:29)
[2022-01-10] MEDS: SPIRONOLACTONE 100 MG TAB PO SCH (08:14)
[2022-01-10] MEDS: MAGNESIUM OXIDE 400 MG TAB PO SCH (08:14)
[2022-01-10] MEDS: FLUTICASONE/VILANTEROL 200/25MCG 14 PUFFS/INHALER INH SCH (08:15)
[2022-01-10] MEDS: UMECLIDINIUM BROMIDE 62.5MCG/BLISTER 7 PUFFS/INHALER INH SCH (08:15)
[2022-01-10] MEDS: LIDOCAINE 5% 1 PATCH TD SCH (08:15)
[2022-01-10] MEDS: methylPREDNISolone 40 MG in SYRINGE 0 ML IV SCH ×2 (08:15→20:30)
[2022-01-10 09:09] LABS: Prothrombin Time 10.3 Seconds (9.0-12.0)
--- NOTE | 2022-01-10 09:48 | XCELERA ---
[id number]
--- NOTE | 2022-01-10 11:22 | Pulmonology Progress Note ---
Date of Service January 10, 2022 Assessment & Plan (1) OLIMPIA (obstructive sleep apnea): (2) Recurrent pulmonary emboli: (3) Severe asthma: (4) Acute asthma exacerbation: Plan: CTA chest 01/08/2022 personally reviewed: Minimal mosaicism Minimal dependent atelectasis bilateral lower lobes No mediastinal adenopathy --Acute asthma exacerbation in a patient who has severe persistent asthma COVID-19 PCR negative Influenza A/B negative BNP 23, procalcitonin 0.05 Patient has been on chronic prednisone 20 mg for very long time I do recommend her to be on Bactrim prophylactic dose Diqcce-Bajkvpiem-Qeykfu t ill she is taking > 20 mg of prednisone continue with inhaled bronchodilators, montelukast O2 saturation keep between 90-92% Patient has had thermoplasty in the past and she is on Fasenra as an outpatient -- OLIMPIA Continue with CPAP 8 cmH2O --Recurrent pulmonary embolism On warfarin --Morbid obesity BMI 61 Being on chronic prednisone is not helping her Losing weight will help her overall health along with asthma control as being on the heavier side will have resistant to ICS Plan: Patient clinically doing better Recommend going down to Solu-Medrol 40 mg on a daily basis and may be transit ioning to p.o. prednisone tomorrow or day after Incentive spirometry and flutter valve will be beneficial for the patient Recommend considering another dose of Bumex No further recommendation from pulmonary perspective. We will sign off. Please call directly with any questions. Please note the above document was generated using voice recognition software. It may contain grammatical, syntax or spelling errors.Any formal questions or concerns about the content, text or information contained within the body of this dictation should be directly addressed to the provider for clarification. Admission and Anticipated Discharge Date Admission Date: January 08, 2022 Subjective Patient seen and examined at bedside. No acute distress, no adverse events over night. Patient states that she did not sleep well. She did use her CPAP but only for 1 and half hours She is overall feeling better compared to yesterday She is bringing up phlegm. Denies any chest pain, no headache, no nausea, no vomiting Review of Systems Review of Systems: All systems reviewed & are unremarkable except as noted in Subjective Physical Exam Physical Exam: Constitutional: No acute distress, cushingoid features HEENT: EOMI, PERRLA, erythema appreciated bilateral cheeks seems to be like malar rash Respiratory system: Decreased air entry bilaterally, no rhonchi, mild crackles bilateral lower lobes, positive expiratory wheeze CVS: S1-S2 positive, no murmurs or gallops, distant heart sounds Abdomen: Soft, nontender, nondistended, positive bowel sounds x4, obese Extremities: +2 pulses bilaterally radialis/ dorsalis pedis, no cyanosis, +2 pitting edema bilateral lower extremity, stasis dermatitis bilaterally Neuro: Awake alert oriented x3 Psych: Normal mood and affect G/U: No Schuler Skin: no rashes, warm and dry Lymphatic: no cervical or axillary lymphadenopathy Results & Data Results & Data ([facility]) Vital Signs (Past 12 Hours) Vital Signs Temp Pulse Resp BP Pulse Ox 01/10/22 11:11 36.7 C 83 157/88 H 95 01/10/22 09:31 68 22 99 01/10/22 08:21 36.6 C 82 19 157/83 H 97 01/10/22 03:25 36.5 C 81 20 157/90 H 96 01/10/22 00:29 71 19 98 Laboratory Results 01/10/22 06:56 01/10/22 06:56 PG Care Time/CCT Total # of Minutes Spent Total Time Spent with Patient: Total time spent is greater than 50% in coordination of care (as documented) at patient's floor/unit and/or counseling patient: Coding Level of Care Code 75046 Subseq Hosp Care Lvl 2 Diagnoses OLIMPIA (obstructive sleep apnea) G47.33 Recurrent pulmonary emboli I26.99 Severe asthma J45.909 Acute asthma exacerbation J45.901
[2022-01-10 15:41] LABS: Partial Thromboplastin Ratio 1.5
[2022-01-10] MEDS ORDERED: WARFARIN SOD 7.5 MG TAB PO SCH (17:00)
[2022-01-10] MEDS: BUMETANIDE 1 MG TAB PO SCH (17:43)
[2022-01-10] MEDS: ZOLPIDEM TARTRATE 10 MG TAB PO PRN (20:28)
[2022-01-10] MEDS: BACLOFEN 20 MG TAB PO SCH (20:29)
[2022-01-10] MEDS: MONTELUKAST SODIUM 10 MG TABLET PO SCH (20:31)
[2022-01-10 22:16] LABS: Partial Thromboplastin Ratio 2.2
[2022-01-10 22:42] LABS: Partial Thromboplastin Time 61.6 Seconds (21.0-31.0)
[2022-01-10] MEDS ORDERED: CYCLOBENZAPRINE HCL 10 MG TAB PO STA (23:22)
[2022-01-11] MEDS: ALBUT/IPRATROP 3MG/0.5MG NEB 3 ML VIAL NEB SCH ×3 (00:58→13:18)
[2022-01-11] MEDS: HEPARIN SODIUM/DEXTROSE 25,000 UNITS/500 ML BAG IV SCH ×2 (01:16→11:11)
[2022-01-11] MEDS ORDERED: MoRPHine SULFATE 2 MG/ML CARP IV STA (01:20)
[2022-01-11] MEDS: HYDROcodone/ACETAMINOPHEN 10/325 TAB PO PRN ×2 (03:58→11:06)
[2022-01-11] MEDS: ALPRAZolam 0.5 MG TABLET PO PRN (03:58)
[2022-01-11] MEDS: CEFEPIME 2,000 MG in SYRINGE 0 ML IV SCH (05:22)
--- NOTE | 2022-01-11 07:28 | Hospitalist Progress Note ---
Date of Service January 11, 2022 Assessment & Plan (1) Acute and chronic respiratory failure: Plan: Jessica is a 51 year old female w/ PmHx of Morbid obesity, DVT/PE on warfarin, rectus sheath hematoma, severe asthma on Fasenra, chronic back pain, OLIMPIA, anemia admitted for asthma exacerbation and cellulitis. Acute on chronic hypoxic respiratory failure -pH 7.54 on VBG upon arrival, placed on BiPAP with improvement. -Patient currently breathing room air at 92%. Continue to monitor -Supplemental O2 PRN, night time CPAP. Asthma exacerbation: improving -Patient with hx of asthma, recent increase in need for DuoNeb and albuterol. -CTA w/o evidence of PE but with bronchial wall thickening with mucous plugging suggestive bronchitis vs reactive airway -Given 125mg IV Solu-Medrol in ED, continued on 40mg IV Q8h -DuoNeb Q6h scheduled q24h, albuterol Q2h PRN -Continue home Symbicort, Spiriva, montelukast, cetirizine. -Consulted pulmonology: respiratory therapy-IS, flutter valve added today. Cellulitis -WBC 12.26, lactate 2.7, procalcitonin 0.05 -Multiple erythematous wounds, ulcerative and w/ some pus drainage. -Blood cultures negative after 24 hours. -XR Tibia/Fibula R leg w/ soft tissue swelling w/ no acute bony abnormality identified. -CT R Tib/Fib w/ contrast w/ mild nonspecific subcutaneous edema of pretibial tissues. -Pt unable to get Duplex lower extremities due to pain. -Started on Daptomycin and Cefepime in ED - D/C'ed Daptomycin. Currently on Cefepime 2g q12h. -WBC 13.08 today, likely 2/2 IV steroids. Trend AM CBC. -Assess cellulitis daily, follow with wound care. -Wound care consult placed- daily dressings. Suggested outpatient appt with wound care after d/c. pt amenable. Subtherapeutic INR Recurrent thromboembolism -Missed dose due to holiday drinking. -INR 1.0 on arrival. 1.0 today -Given heparin standard w/o bolus due to hx of rectal sheath hematoma. Continue heparin bridge until INR therapeutic. -Restarted Warfarin at 10mg overnight. AM INR-1.0. Giving 15 mg dose nightly until INR therapeutic. R Sided Heart Failure -Pitting edema on exam. -On Bumex 2mg PO daily at home. -Gave 2mg IV Bumex yesterday. -Continue oral home dose. -Monitor O2, I&Os. OLIMPIA: -Continue home CPAP -She is on CPAP 5-7 CM H20 at night with 2L oxygen bled in Anxiety: -Continue Ativan PRN Morbid Obesity: -Most likely obesity hypoventilation syndrome contributing to breathing difficulties. -Encourage lifestyle modifications. Chronic Back Pain: -Continue with her home hydrocodone -Lidocaine patch added. GERD: -Continue home omeprazole. DVT Prophylaxis: Heparin transitioning to Warfarin. INR-1.0 F/E/N/GI: Carb consistent DM2. Code Status: Full Code. Dispo: Med/Surg Tele (2) Cellulitis: (3) Asthma exacerbation: (4) Right-sided heart failure: (5) Recurrent pulmonary emboli: (6) Anxiety: (7) Morbid obesity with BMI of 50.0-59.9, adult: (8) Chronic back pain: (9) GERD (gastroesophageal reflux disease): (10) Subtherapeutic international normalized ratio (INR): Admission and Anticipated Discharge Date Admission Date: January 08, 2022 Physical Exam Physical Exam: General: Morbidly obese you/middle aged woman who is in no acute distress. HEENT: Normocephalic, atraumatic. EOM intact. Good conjugate gaze. Nares patent. Moist mucosal membranes. Bilateral malar erythema. Neck: Supple. No lymphadenopathy. Normal ROM. CV: Regular rate and rhythm. Normal S1 and S2. No murmurs gallops or rubs. Bilateral pitting pedal edema to the knees. Respiratory: Normal respiratory effort. Prolonged expiratory wheeze heard on auscultation. Abdomen: Soft, protuberant abdomen. No bruits heard on auscultation. No tenderness to deep palpation. No guarding or rebound. Extremities: Capillary refill <2 sec. 2+ dp equal bilaterally. Skin: Diffuse erythema bilaterally in the lower extremity, from the dorsum of the foot to mid no. Erythematous areas also warm to the touch. 3 healing ulcers bilaterally at the lower leg (covered with wound dressings: one on the right, lower leg anteriorly (no); two on the left lower leg anterior and posteriorly. TTP diffusely across erythematous lower extremity. Results & Data Results & Data ([facility]) Vital Signs (Past 12 Hours) Vital Signs Temp Pulse Pulse Resp BP Pulse Ox 01/11/22 07:05 76 18 95 01/11/22 04:00 36.7 C 76 20 151/87 H 95 01/10/22 23:00 36.9 C 92 H 20 178/93 H 97 01/10/22 22:16 95 H 01/10/22 19:45 36.5 C 74 20 141/83 H 100 01/10/22 19:33 89 24 96 (1) Acute and chronic respiratory failure Respiratory failure complication: hypoxia Qualified Code(s): J96.21 - Acute and chronic respiratory failure with hypoxia (2) Chronic back pain Back pain laterality: left Back pain location: back pain in unspecified location Qualified Code(s): M54.9 - Dorsalgia, unspecified; G89.29 - Other chronic pain
[2022-01-11 07:42] LABS: INR 1.2 (0.9-1.1); Partial Thromboplastin Ratio 2.4; Prothrombin Time 12.4 Seconds (9.0-12.0)
[2022-01-11 08:07] LABS: Partial Thromboplastin Time 65.9 Seconds (21.0-31.0)
[2022-01-11] MEDS: FEXOFENADINE HCL 180 MG TAB PO SCH (08:36)
[2022-01-11] MEDS: SPIRONOLACTONE 100 MG TAB PO SCH (08:36)
[2022-01-11] MEDS: methylPREDNISolone 40 MG in SYRINGE 0 ML IV SCH (08:36)
[2022-01-11] MEDS: POTASSIUM CHLORIDE CRTAB 20 MEQ TABCR PO SCH (08:36)
[2022-01-11] MEDS: PANTOprazole 40 MG TAB PO SCH (08:36)
[2022-01-11] MEDS: LIDOCAINE 5% 1 PATCH TD SCH (08:37)
[2022-01-11] MEDS: UMECLIDINIUM BROMIDE 62.5MCG/BLISTER 7 PUFFS/INHALER INH SCH (08:37)
[2022-01-11] MEDS: FLUTICASONE/VILANTEROL 200/25MCG 14 PUFFS/INHALER INH SCH (08:37)
[2022-01-11] MEDS: MAGNESIUM OXIDE 400 MG TAB PO SCH (08:37)
[2022-01-11] MEDS: BUMETANIDE 1 MG TAB PO SCH (08:37)
[2022-01-11] MEDS ORDERED: ENOXAPARIN INJ 40 MG/0.4 ML SYR SQ SCH (11:00)
[2022-01-11] MEDS ORDERED: predniSONE 20 MG TAB PO STA (11:47)
[2022-01-11] MEDS ORDERED: ACETAMINOPHEN 325 MG TAB PO SCH (12:00)
--- NOTE | 2022-01-11 13:10 | Discharge Summary ---
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 Patient comes to the [facility] today for concerns of lower extremity leg wounds. These started on Wednesday and have progressed with opening and weeping "white yellow" fluid. She also endorses that she got up this morning with an asthma attack, where she used her nebulizer 3-5 times, and her albuterol inhaler [address] to the [facility]. She also endorses that she didn't take her Coumadin because she was drinking alochol and does not take this when she is dr inking- which reportedly is once a month. In the EMD she had routine blood work performed to include PCT, lactate level. She was noted to be hypoxic and tachypneic on arrival to the [facility]- she was placed on BiPAP and had a VBG performed as well as nebulizers and IV solumederol. She has since been weaned down to oxymask. She had a CTA of her chest completed in the EMD, lower extremity x-ray of left leg for swelling and pain, and lower extremity CT scan of her lower legs for the above. She was started on Vancomycin and Cefepime fo her lower extremity ulcerations. Her INR is 1.0- and CTA of her chest is thankfully negative for PE. She feels her breathing is about 80%. She is without EOS in her peripheral blood. Patient will be admitted to medical telemetry, repeat VBG/ABG at this time to evaluate her acid base status and CO2 with her severe asthma. Will diurese with her edema, obtain ultrasound of her lower extremities to rule out DVT although will place on Heparin drip to bridge her back to her Coumadin. COVID/FLU/RSV: NEGATIVE Admission Exam Per Admitting Provider General: awake, alert, no apparent distress Head: Normocephalic, atraumatic ENT: PERRAL, EOMI, no pharyngeal exudate, mucous membranes dry Neuro: AAO x 3, speech clear and appropriate, strength intact bilaterally 5/5, sensation intact and equal all extremities and dermatomes, no pronator drift Chest: equal rise and fall of the chest, no accessory muscle use, expiratory wheeze throughout bilateral lungs, moving air well, no stridor Cardiac: Regular rate and rhythm, telemetry reviewed- NSR occasional PVC, skin warm dry, cap refill <3 seconds, peripheral pulses +2 no JVD, no murmur,+3 pitting edema right leg up to abdomen, +2 edema left leg up to abdomen. GI: NABS x 4 quadrants, soft, nontender to palpation, no rebound, guarding or tenderness : Spontaneously voiding, no pain, no CVA tenderness, Psych: Normal mood and affect Skin: open area on right lower calf extending to just above akle, with surrounding errythema- left leg with torn skin to inside calf. Principal Diagnosis Asthma exacerbation Cellulitis of lower extremities bilaterally Discharge Exam General: Morbidly obese middle aged woman in no acute distress. HEENT: Normocephalic, atraumatic. EOM intact. Good conjugate gaze. Nares patent. Moist mucosal membranes. Bilateral malar erythema. Neck: Supple. No lymphadenopathy. Normal ROM. CV: Regular rate and rhythm. Normal S1 and S2. No murmurs gallops or rubs. Bilateral pitting pedal edema to the knees. Respiratory: Normal respiratory effort. Prolonged expiratory wheeze heard on auscultation. Abdomen: Soft, protuberant abdomen. No bruits heard on auscultation. No tenderness to deep palpation. No guarding or rebound. Extremities: Capillary refill <2 sec. 2+ dp equal bilaterally. Skin: Diffuse erythema bilaterally in the lower extremity, from the dorsum of the foot to mid no. Erythematous areas less warm to the touch, much improved from yesterday. 3 healing ulcers bilaterally at the lower leg (covered with wound dressings: one on the right, lower leg anteriorly (no); two on the left lower leg, at the inferior no and superior Achilles tendon. TTP diffusely across erythematous lower extremity. Discharge Data Allergies Allergy/AdvReac Type Severity Reaction Status Date / Time chlorhexidine Allergy Intermediate ITCHING Verified 01/08/22 18:47 budesonide Allergy Unknown Unknown Verified 01/08/22 18:47 azithromycin Allergy Unknown Verified 01/08/22 18:47 adhesive AdvReac Intermediate TAPE- Verified 01/08/22 18:47 SEVERE ITCHING clarithromycin AdvReac Intermediate NAUSEA Verified 01/08/22 18:47 clindamycin AdvReac Mild NAUSEA Verified 01/08/22 18:47 tramadol AdvReac Mild dizziness,S Verified 01/08/22 18:47 YNCOPE Consultations 01/08/22 17:57 ED Decision to Admit Stat 01/09/22 14:16 Consult Pulmonology Routine Ordered Studies 01/08/22 14:41 CT angio chest PE protocol Stat 01/08/22 14:42 CT tib/fib RT w con Stat Hospital Course (1) Acute and chronic respiratory failure: Jessica is a 51 year old female w/ PmHx of Morbid obesity, DVT/PE on w arfarin, rectus sheath hematoma, severe asthma on Fasenra, chronic back pain, OLIMPIA, anemia admitted for asthma exacerbation and cellulitis. Acute on chronic hypoxic respiratory failure -pH 7.54 on VBG upon arrival, placed on BiPAP with improvement. -Patient weaned off to room air by day of discharge. Consider resolved. Asthma exacerbation -Patient with hx of asthma, recent increase in need for DuoNeb and albuterol. -CTA w/o evidence of PE but with bronchial wall thickening with mucous plugging suggestive bronchitis vs reactive airway -Given 125mg IV Solu-Medrol in ED, continued on 40mg IV Q8h -DuoNeb Q6h scheduled q24h, albuterol Q2h PRN -Home Symbicort, Spiriva, montelukast, cetirizine. -Added incentive spirometer, flutter valve, on advice of pulmonology. -Patient received 1 dose of IV Solu-Medrol 40 mg and 1 dose of prednisone 20 mg prior to discharge. -Sent home on short prednisone taper. Cellulitis - lower extremity with underlying venous stasis -WBC 12.26, lactate 2.7, procalcitonin 0.05 -Multiple erythematous wounds, ulcerative and w/ some pus drainage. -Blood cultures negative after 24 hours. -XR Tibia/Fibula R leg w/ soft tissue swelling w/ no acute bony abnormality identified. -CT R Tib/Fib w/ contrast w/ mild nonspecific subcutaneous edema of pretibial tissues. -Pt unable to get Duplex lower extremities due to pain. -Started on Daptomycin and Cefepime in ED - D/C'ed Daptomycin. Patient on cefepime for 3 days total. -Wound care consult placed- daily dressings. -Upon discharge, converted IV cefepime to p.o. cefdinir, 300 mg twice daily x10 days. -Recommend outpatient referral to wound care clinic. Discussed with patient who was amenable. Subtherapeutic INR Recurrent thromboembolism -Missed dose due to holiday drinking. -INR 1.0 on arrival. -Attempted heparin bridge to Coumadin, per guidelines. INR subtherapeutic at 1.2 on discharge. -Gave prophylactic dose of Lovenox 40 mg SQ x1 prior to discharge. Told patient to continue home warfarin dosing schedule (10 mg Wednesday, Wednesday, Wednesday, Satu , Wednesday; 15 mg Wednesday/), then follow-up with PCP. Bilateral leg edema - ? R Sided Heart Failure/venous status -Pitting edema on exam. -On Bumex 2mg PO daily at home - lacks compliance. -Gave 2mg IV Bumex. -Continued oral home dose. -Patient lost ~13.3 kg during hospitalization. Suspect nonadherence to Bumex. OLIMPIA: -Continued home CPAP -She is on CPAP 5-7 CM H20 at night with 2L oxygen bled in Anxiety: -Ativan PRN Morbid Obesity: -Most likely obesity hypoventilation syndrome contributing to breathing difficulties. -Recommend referral to weight management clinic upon follow-up with PCP. Discussed with patient, who was amenable. Chronic Back Pain: -Continue with her home hydrocodone -Added lidocaine patch. GERD: -Continued home omeprazole. Total Time Total Time Spent Total Time Spent (In Minutes): 20 Discharge Plan Discharge Items Patient Disposition: Home - Self-Care Reason For Visit: HYPOXIA, CELLULITIS Discharge Diagnosis: Acute hypoxic respiratory failure, cellulitis Activity: Per Instructions section Non-emergency contact: Primary Care Provider Call non-emergency contact if: you have any medication questions, your temperature is above 101, your wound has increased redness and your wound pain has increased Follow-up/Referrals: Ramon العراقي MD [Primary Care Provider] - (PLEASE CALL YOUR PRIMARY CARE PROVIDER TO SCHEDULE A DISCHARGE FOLLOW-UP APPOINTMENT WITHIN 7-10 DAYS. ) Diet: Regular Addtl Attending Provider Instructions: You were admitted to the hospital for hypoxia, which was due to an exacerbation of your asthma and cellulitis. The following is a brief summary of your hospital stay. Acute Hypoxic Respiratory Failure/asthma exacerbation: You were admitted for hypoxia secondary to an exacerbation of your asthma. You were treated with oxygen, IV steroids, inhalers, and a regimen of other asthma medicines. Your oxygen was weaned gradually until you were able to breathe on your own without needing oxygen. After assessing you this morning, we feel that you can be safely discharged home from a medical standpoint. You were given a one-time oral steroid dose prior to your discharge. You will complete the rest of your steroid course at home. Cellulitis: You were also admitted for cellulitis, or an acute infection of the skin and soft tissue of your lower legs. You were given antibiotics and the infection began to improve. Therefore, we feel that you are ready to be discharged home. Your IV antibiotic will be converted to an oral version and you will complete the rest of the antibiotics course at home. A discharge summary will be sent to your primary care physician to ensure continuity of care. Please bring this discharge summary with you to your next office appointment so that your provider can review it at that time. Follow-up appointments: * We have requested a follow-up appointment with Dr. العراقي, your primary care physician within one week of discharge. Please call their office if you do not hear from them. As discussed with Dr. Whitaker, we will recommend a referral to an outpatient weight management clinic. Please discuss this with Dr. العراقي at your follow-up visit. * Keep all your other follow-up appointments as already scheduled. If you cannot make an appointment, notify your provider. Medications: Your medication list has been reviewed and reconciled upon discharge to ensure accuracy and continuity of care. An updated list of all your medications is included with your hospital discharge paperwork. Please review this list closely, and make note of any changes. * We sent a short course of Prednisone 20 mg to your pharmacy. Take Prednisone according to the following schedule for the next 4 days: * 01/12/22-01/13/22: 40 mg (2 tablets) once daily for 2 days. Then: * 01/14/22-01/15/22: 30 mg (1.5 tablets) once daily for 2 days. * After that, you can resume taking your home prednisone at the usual dose (20 mg daily). * We also sent an antibiotic called Cefdinir to your pharmacy. Take Cefdinir 300 mg twice daily for 10 days. If your legs have not completely healed when you complete the full course, contact your primary care provider for a visit. Take your medications as instructed; do not skip a dose of your medicines. Make sure all of your doctors know every medicine you are taking (including semn-qpf-uwxhqel medicines, vitamins, and supplements). Call your primary care provider before taking any new medicines (including byfy-ivv-dfyrbfw medicines, vitamins, and supplements), because some of these may interact with your current medications, or may make your symptoms worse. Tell your primary care provider if you cannot afford your medications. CONTACT YOUR PRIMARY CARE PROVIDER if you experience any of the following: * Sudden breathlessness, coughing, or wheezing * Chest tightness and shortness of breath worsened by mild exertion * Difficulty following your treatment plan, or difficulty taking medications CALL 911 OR GO TO THE EMERGENCY DEPARTMENT if you experience any of the following: * Sudden, severe abdominal pain or nausea/vomiting * Severe chest pain, or chest pain that radiates (moves) to your jaw or arm * Sudden, severe shortness of breath or difficulty breathing Thank you for allowing us to participate in your care. Pending Studies at Discharge: No Stand-Alone Forms: My [facility], Smoking Cessation Medications and DC Order Prescriptions: New prednisone 20 mg tablet 20 mg PO DAILY Qty: 7 RF: 0 cefdinir 300 mg capsule 300 mg PO BID 10 Days Qty: 20 RF: 0 Continued ergocalciferol (vitamin D2) [Vitamin D2] 1,250 mcg (50,000 unit) capsule 50,000 unit PO WE Qty: 12 RF: 1 (DME) BD Integra Syringe 3 mL 25 gauge x 1" syringe See Rx Instructions .ROUTE .MEDSUPPLY Qty: 12 RF: 3 albuterol sulfate 90 mcg/actuation HFA aerosol inhaler 2 puff inhalation 6XD PRN (Reason: shortness of breath or wheezing) Qty: 3 RF: 1 baclofen 20 mg tablet 20 mg PO HS Qty: 90 RF: 3 montelukast [Singulair] 10 mg tablet 10 mg PO HS Qty: 90 RF: 3 omeprazole 40 mg capsule,delayed release(DR/EC) 40 mg PO QAM Qty: 90 RF: 3 warfarin 10 mg tablet 10 mg PO SUMOWEFRSA Qty: 90 RF: 3 warfarin 10 mg tablet 15 mg PO TUTH Qty: 90 RF: 1 cyanocobalamin (vitamin B-12) 1,000 mcg/mL solution See Rx Instructions .ROUTE .COMPLEX Qty: 4 RF: 3 alprazolam [Xanax] 2 mg tablet 2 mg PO HS Qty: 30 RF: 0 hydrocodone-acetaminophen 10-325 mg tablet 1 tab PO Q6H PRN (Reason: Pain) Qty: 30 RF: 0 zolpidem 10 mg tablet 10 mg PO HS PRN (Reason: insomnia) Qty: 30 RF: 0 (DME) CPAP Machine Misc See Rx Instructions .MEDSUPPLY Qty: 1 RF: 0 (DME) Oxygen Home Liters Per Minute See Rx Instructions .ROUTE .MEDSUPPLY Qty: 1 RF: 0 (DME) misc Misc See Rx Instructions .ROUTE .MEDSUPPLY Qty: 1 RF: 0 Wheelchair (Manual) Device See Rx Instructions .ROUTE .COMPLEX Qty: 1 RF: 0 Fasenra 30 mg/mL syringe 30 mg subcut MONTHLY RF: 0 Spiriva Respimat 1.25 mcg/actuation Mist 1 puff INHALATION BID RF: 0 fexofenadine [Susanne Allergy] 180 mg tablet 180 mg PO QAM RF: 0 bumetanide 2 mg tablet 2 mg PO QAM RF: 0 alprazolam 1 mg tablet 1 mg PO HS PRN (Reason: Anxiety) RF: 0 prednisone 20 mg tablet 20 mg PO QAM RF: 0 spironolactone 100 mg tablet 100 mg PO QAM RF: 0 magnesium oxide 400 mg (241.3 mg magnesium) tablet 400 mg PO QAM RF: 0 potassium chloride 20 mEq tablet extended release 20 meq PO QAM RF: 0 budesonide-formoterol [Symbicort] 80-4.5 mcg/actuation Hfa Aerosol Inhaler 1 inh INHALATION BID RF: 0 Discharge Orders: Discharge Order (Routine); Ordered 01/11/22 Ordered By: Dionna Arvizu Admission Data Admit Date/Time: 01/08/22 18:16 Attending Provider: Marcia Whitaker Admit Provider: Jose Enrique Zheng Primary Care Provider: Ramon العراقي Other Providers: Jose Enrique Zheng ; Kush Kerr Other Interventions: Discharge Summary Assessment (RN) Last Done: 01/11/22 13:53 Supervising Physician Co-Signing Physician Notes Resident Physician Supervision Note: I independently interviewed and examined the patient and verified the flores history and physical, reviewed labs and image studies and agree with resident Dr. Arvizu findings and care plan. Resident Activity Tracking Resident Involvement: Resident Care Provided Care Provided: Adult Hospital Medicine
[2022-01-11] MEDS ORDERED: WARFARIN SOD 7.5 MG TAB PO SCH (16:00)
== END 2022-01-11 15:33 | disposition home or self-care (01) | DRG 189 ==
LOC: ED 13:31 → SUATTDRO 18:16 → 2N 18:16

== ENCOUNTER 2022-10-03 13:08 | Inpatient (IN) ==
--- NOTE | 2022-10-03 13:48 | XRay Report ---
XR chest 1V portable CLINICAL HISTORY: Cough. COMPARISON STUDY: Chest radiograph and chest CT May 31, 2022. FINDINGS: Lung volumes are normal. Lungs are clear. There is no pneumothorax or pleural effusion. Car diac size is stable. Mediastinal contours are normal. There is no evidence for pulmonary edema. IMPRESSION: No acute cardiopulmonary findings. No change in appearance of the chest. ACT 112: Negative or not required by law. Electronically signed by: Cameron Beatty M.D. 10/03/2022 1:46 PM
[2022-10-03] MEDS ORDERED: ALBUT/IPRATROP 3MG/0.5MG NEB 3 ML VIAL NEB STA ×3 (14:01→16:15)
[2022-10-03 14:40] LABS: Adenovirus PCR Not Detected (NotDetected); Bordetella parapertussis PCR Not Detected (NotDetected); Bordetella pertussis PCR Not Detected (NotDetected); Chlamydia pneumoniae PCR Not Detected (NotDetected); Coronavirus 229E PCR Not Detected (NotDetected); Coronavirus HKU1 PCR Not Detected (NotDetected); Coronavirus NL63 PCR Not Detected (NotDetected); Coronavirus OC43PCR Not Detected (NotDetected); Human Metapneumovirus PCR Not Detected (NotDetected); Influenza A PCR Not Detected (NotDetected); Influenza B PCR Not Detected (NotDetected); Mycoplasma pneumoniae PCR Not Detected (NotDetected); Parainfluenza Virus 1 PCR Not Detected (NotDetected); Parainfluenza Virus 2 PCR Not Detected (NotDetected); Parainfluenza Virus 3 PCR Not Detected (NotDetected); Parainfluenza Virus 4 PCR Not Detected (NotDetected); Respiratory Syncytial VirusPCR Not Detected (NotDetected); Rhinovirus/Enterovirus PCR Not Detected (NotDetected)
[2022-10-03 14:42] LABS: Coronavirus CoV-2 (COVID19)PCR DETECTED (NotDetected)
[2022-10-03 14:50] LABS: Base Excess VBG 5.2 mEq/L; HCO3 VBG 30 mmol/L; Oxygen Saturation VBG < 60.0 %; PCO2 VBG 43 mmHg (38-50); PO2 VBG 23 mmHg; pH VBG 7.45 (7.36-7.41)
[2022-10-03 14:54] LABS: Basophils # (auto) 0.01 K/uL (0-0.2); Basophils % (auto) 0.1 %; Hematocrit (blood only) 45.4 % (37.0-47.0); Hemoglobin 15.4 g/dl (12.0-16.0); Immature Granulocytes # (auto) 0.03 K/uL (0.01-0.20); Immature Granulocytes % (auto) 0.4 %; Lymphocytes # (auto) 1.33 K/uL (1.2-3.4); Lymphocytes % (auto) 19.4 %; Mean Corpuscular Hgb Conc 33.9 g/dL (32.0-36.0); Mean Corpuscular Volume 88.3 fL (80.0-100.0); Mean Platelet Volume 9.5 fL (9.4-12.4); Monocytes # (auto) 0.43 K/uL (0.11-0.59); Monocytes % (auto) 6.3 %; Neutrophils # (auto) 5.06 K/uL (1.40-6.50); Neutrophils % (auto) 73.8 %; Platelet Count 347 K/uL (130-400); RDW Coefficient of Variation 14.8 % (11.5-14.5); RDW Standard Deviation 47.7 fL (36.4-46.3); Red Blood Count 5.14 M/uL (4.20-5.40); White Blood Count 6.86 K/ul (4.8-10.8)
[2022-10-03 15:17] LABS: Troponin I High Sensitivity 3.2 pg/ml (0-14)
[2022-10-03 15:21] LABS: INR 3.2 (0.9-1.1); Partial Thromboplastin Ratio 1.5; Partial Thromboplastin Time 40.9 Seconds (21.0-31.0); Prothrombin Time 32.1 Seconds (9.0-12.0)
[2022-10-03 15:24] LABS: BUN Creatinine Ratio 11.8 (10-20); Bilirubin,Total 0.4 mg/dl (0.2-1.0); Calcium 9.3 mg/dl (8.5-10.1); Creatinine Clr Calc Pharmacy 136.7 ml/min; Est GFR (Non-African American) 91.5 ml/min; Potassium 3.7 mmol/L (3.5-5.1); Total Protein 7.1 gm/dl (6.0-8.3)
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
[2022-10-03] MEDS ORDERED: methylPREDNISolone 125 MG/2 ML VIAL IV STA (16:14)
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
[2022-10-03 16:58] LABS: C Reactive Protein 0.66 mg/dl (0-0.5)
[2022-10-03] MEDS ORDERED: ONDANSETRON INJ 2 MG/ML 2 ML VIAL IV PRN (19:31)
--- NOTE | 2022-10-03 20:29 | Electrocardiogram Report ---
Test Reason : Blood Pressure : / mmHG Vent. Rate : 071 BPM Atrial Rate : 071 BPM P-R Int : 132 ms QRS Dur : 066 ms QT Int : 404 ms P-R-T Axes : 075 013 043 degrees QTc Int : 439 ms Poor data quality, interpretation may be adversely affected Sinus rhythm with occasional Premature ventricular complexes Low voltage QRS Cannot rule out Anterior infarct (cited on or before 03-OCT-2022) Abnormal ECG When compared with ECG of 30-MAY-2022 23:49, No significant change Confirmed by Henrry Mcguire ([id number]) on 10/03/2022 8:29:10 PM Referred By: NO PCP Confirmed By:Henrry Mcguire
[2022-10-03] MEDS: HYDROcodone/ACETAMINOPHEN 10/325 TAB PO PRN (20:51)
[2022-10-03] MEDS: ALPRAZolam 0.5 MG TABLET PO SCH (20:51)
[2022-10-03] MEDS: methylPREDNISolone 40 MG in SYRINGE 0 ML IV SCH (21:26)
[2022-10-03] MEDS: BACLOFEN 20 MG TAB PO SCH (21:26)
[2022-10-03] MEDS: WARFARIN SOD 10 MG TAB PO SCH (21:27)
[2022-10-03] MEDS: MONTELUKAST SODIUM 10 MG TABLET PO SCH (21:28)
[2022-10-03] MEDS ORDERED: ACETAMINOPHEN 500 MG TAB PO ONE (22:00)
[2022-10-03] MEDS: ZOLPIDEM TARTRATE 10 MG TAB PO PRN (22:34)
[2022-10-03] MEDS: ALBUT/IPRATROP 3MG/0.5MG NEB 3 ML VIAL NEB SCH (22:45)
[2022-10-04] MEDS: ALBUT/IPRATROP 3MG/0.5MG NEB 3 ML VIAL NEB SCH ×6 (02:11→22:13)
[2022-10-04] MEDS: ACETAMINOPHEN 325 MG TAB PO PRN ×2 (04:52→20:09)
[2022-10-04] MEDS: FLUTICASONE/VILANTEROL 100/25MCG 14 PUFFS/INHALER INH SCH (07:51)
[2022-10-04] MEDS: methylPREDNISolone 40 MG in SYRINGE 0 ML IV SCH ×2 (07:51→20:21)
[2022-10-04] MEDS: UMECLIDINIUM BROMIDE 62.5MCG/BLISTER 7 PUFFS/INHALER INH SCH (07:51)
[2022-10-04] MEDS: PANTOprazole 40 MG TAB PO SCH (07:52)
[2022-10-04] MEDS: BUMETANIDE 1 MG TAB PO SCH (07:52)
[2022-10-04] MEDS: SPIRONOLACTONE 100 MG TAB PO SCH (07:52)
[2022-10-04] MEDS: POTASSIUM CHLORIDE CRTAB 20 MEQ TABCR PO SCH (07:52)
[2022-10-04] MEDS: FEXOFENADINE HCL 180 MG TAB PO SCH (07:52)
[2022-10-04 08:00] LABS: Basophils # (auto) 0.01 K/uL (0-0.2); Basophils % (auto) 0.2 %; Hematocrit (blood only) 43.1 % (37.0-47.0); Hemoglobin 14.7 g/dl (12.0-16.0); Immature Granulocytes # (auto) 0.04 K/uL (0.01-0.20); Immature Granulocytes % (auto) 0.9 %; Lymphocytes # (auto) 1.29 K/uL (1.2-3.4); Lymphocytes % (auto) 27.9 %; Mean Corpuscular Hemoglobin 29.8 pg (25.0-34.0); Mean Corpuscular Hgb Conc 34.1 g/dL (32.0-36.0); Mean Corpuscular Volume 87.2 fL (80.0-100.0); Mean Platelet Volume 9.4 fL (9.4-12.4); Monocytes # (auto) 0.21 K/uL (0.11-0.59); Monocytes % (auto) 4.5 %; Neutrophils # (auto) 3.08 K/uL (1.40-6.50); Neutrophils % (auto) 66.5 %; Platelet Count 331 K/uL (130-400); RDW Coefficient of Variation 14.6 % (11.5-14.5); RDW Standard Deviation 47.2 fL (36.4-46.3); Red Blood Count 4.94 M/uL (4.20-5.40); White Blood Count 4.63 K/ul (4.8-10.8)
[2022-10-04 08:17] LABS: Albumin Globulin Ratio 1.3 (0.9-2); Albumin Level 3.7 gm/dl (3.4-5.0); BUN Creatinine Ratio 13.6 (10-20); Bilirubin,Total 0.3 mg/dl (0.2-1.0); Calcium 9.3 mg/dl (8.5-10.1); Creatinine Clr Calc Pharmacy 176.1 ml/min; Est GFR (African American) 123.9 ml/min; Est GFR (Non-African American) 106.9 ml/min; Globulin 2.9 gm/dl (2.5-4.0); Potassium 4.2 mmol/L (3.5-5.1); Total Protein 6.6 gm/dl (6.0-8.3)
[2022-10-04] MEDS: ALPRAZolam 0.5 MG TABLET PO PRN ×2 (08:25→15:34)
[2022-10-04] MEDS: HYDROcodone/ACETAMINOPHEN 10/325 TAB PO PRN ×2 (08:25→20:09)
[2022-10-04 08:28] LABS: Prothrombin Time 39.6 Seconds (9.0-12.0)
[2022-10-04] MEDS: MAGNESIUM OXIDE 400 MG TAB PO SCH (09:14)
[2022-10-04] MEDS: WARFARIN SOD 10 MG TAB PO SCH (11:34)
[2022-10-04] MEDS: MoRPHine SULFATE 2 MG/ML CARP IV PRN ×2 (14:10→22:06)
--- NOTE | 2022-10-04 18:15 | Hospitalist Progress Note ---
Date of Service October 04, 2022 Assessment & Plan (1) Acute asthma exacerbation: Plan: Main reason for admission Switch her prednisone to Solu-Medrol as she appears to respond better to this. Solu-Medrol 40 mg IV twice daily DuoNebs every 4 hourly Continue her routine maintenance inhalers 10/04-patient being continued on IV Solu-Medrol for her acute asthma exacerbation present along with COVID-19 infection Continue IV steroids and bronchodilators as needed Continue Mucinex to promote expectoration Patient reports symptomatically feeling better and no evidence of worsening hypoxia noted Patient reports severe back pain and requests pain relief-will give morphine for short duration only and encourage ambulation Plan discussed with patient in detail and if patient continues to improve consider DC in 24 to 48 hours (2) COVID-19: Plan: Not vaccinated. Day 7 of illness on admission. Not within the first 5 days of illness and not hypoxic enough to qualify for further treatment Symptomatic treatment only for this Isolation precautions (3) OLIMPIA (obstructive sleep apnea): Plan: CPAP at bedtime (4) GERD (gastroesophageal reflux disease): Plan: Switch omeprazole for pantoprazole per hospital formulary (5) Anticoagulant long-term use: Plan: Continue warfarin. Repeat INR in AM (6) Congestive heart failure: Plan: Chronic right sided. Continue Bumex Plan VTE prophylaxis -INR therapeutic Diet -heart healthy Disposition -observation status to [facility] Admission and Anticipated Discharge Date Admission Date: October 03, 2022 Subjective Patient admitted for acute asthma exacerbation along with COVID-19 infection Patient reports feeling slightly better today but still has some cough but reports that she is able to Expectorate some mucoid sputum no chest pain reported Patient reports severe back pain due to laying in bed Physical Exam Physical Exam: Head and ENT no thyroid enlargement trachea midline Cardiovascular S1-S2 are normal no S3 Lungs bilateral air entry decreased at bases with scattered rhonchi at bases Abdomen soft nondistended positive bowel sounds no rebound tenderness Extremity shows trace edema Neurologically no focal deficits Skin shows no rash no cyanosis Results & Data Results & Data ([facility]) Vital Signs (Past 12 Hours) Vital Signs Temp Pulse Pulse Pulse Resp BP Pulse Ox 10/04/22 15:46 36.5 C 54 L 18 143/92 H 96 10/04/22 15:33 52 L 18 92 10/04/22 10:44 46 L 22 96 10/04/22 07:43 37.1 C 58 L 20 148/74 H 95 10/04/22 07:02 66 19 98 10/04/22 06:59 66 16 96 O2 Del Method O2 Flow Rate 10/04/22 15:46 Room Air 10/04/22 15:33 Room Air 10/04/22 10:44 Room Air 10/04/22 07:43 Room Air 10/04/22 07:02 2 10/04/22 06:59 CPAP 2 Laboratory Results Short CBC 10/04/22 Range/Units 07:32 WBC 4.63 L (4.8-10.8) K/ul Hgb 14.7 (12.0-16.0) g/dl Hct 43.1 (37.0-47.0) % Plt Count 331 (130-400) K/uL BMP 10/04/22 07:39 Sodium 136 Potassium 4.2 Chloride 100 Carbon Dioxide 29 BUN 8 Creatinine 0.59 L Glucose 162 H Calcium 9.3 Liver Function 10/04/22 Range/Units 07:39 Total Bilirubin 0.3 (0.2-1.0) mg/dl AST 17 (13-39) U/L ALT 22 (7-52) U/L Alkaline Phosphatase 57 (34-104) U/L Albumin 3.7 (3.4-5.0) gm/dl PG Care Time/CCT Total # of Minutes Spent Total Time Spent with Patient: Total time spent is greater than 50% in coordination of care (as documented) at patient's floor/unit and/or counseling patient: Coding Level of Care Code 51988 SUB INP/OBS CARE 2/35MIN Diagnoses Acute asthma exacerbation J45.901 COVID-19 U07.1 OLIMPIA (obstructive sleep apnea) G47.33 GERD (gastroesophageal reflux disease) K21.9 Anticoagulant long-term use Z79.01 Congestive heart failure I50.9
[2022-10-04] MEDS: ALPRAZolam 0.5 MG TABLET PO SCH (20:09)
[2022-10-04] MEDS: BACLOFEN 20 MG TAB PO SCH (20:21)
[2022-10-04] MEDS: MONTELUKAST SODIUM 10 MG TABLET PO SCH (20:21)
[2022-10-04] MEDS: ZOLPIDEM TARTRATE 10 MG TAB PO PRN (22:06)
[2022-10-05] MEDS: ALBUT/IPRATROP 3MG/0.5MG NEB 3 ML VIAL NEB SCH ×6 (02:29→22:53)
[2022-10-05] MEDS: ACETAMINOPHEN 325 MG TAB PO PRN (03:33)
[2022-10-05 06:38] LABS: Basophils # (auto) 0.01 K/uL (0-0.2); Basophils % (auto) 0.1 %; Hematocrit (blood only) 43.4 % (37.0-47.0); Hemoglobin 14.6 g/dl (12.0-16.0); Immature Granulocytes # (auto) 0.05 K/uL (0.01-0.20); Immature Granulocytes % (auto) 0.6 %; Lymphocytes # (auto) 1.12 K/uL (1.2-3.4); Lymphocytes % (auto) 12.7 %; Mean Corpuscular Hemoglobin 29.8 pg (25.0-34.0); Mean Corpuscular Hgb Conc 33.6 g/dL (32.0-36.0); Mean Corpuscular Volume 88.6 fL (80.0-100.0); Mean Platelet Volume 9.6 fL (9.4-12.4); Monocytes # (auto) 0.51 K/uL (0.11-0.59); Monocytes % (auto) 5.8 %; Neutrophils # (auto) 7.16 K/uL (1.40-6.50); Neutrophils % (auto) 80.8 %; Platelet Count 343 K/uL (130-400); RDW Coefficient of Variation 14.9 % (11.5-14.5); RDW Standard Deviation 48.8 fL (36.4-46.3); White Blood Count 8.85 K/ul (4.8-10.8)
[2022-10-05 06:45] LABS: Anion Gap 4 (3-11); BUN Creatinine Ratio 15.1 (10-20); Blood Urea Nitrogen 11 mg/dl (6-23); C Reactive Protein < 0.50 mg/dl (0-0.5); Calcium 9.4 mg/dl (8.5-10.1); Carbon Dioxide 32 mmol/L (21-32); Chloride 99 mmol/L (98-107); Creatinine Clr Calc Pharmacy 142.3 ml/min; Est GFR (African American) 111.3 ml/min; Glucose 161 mg/dl (70-99(Fasting)); Potassium 4.9 mmol/L (3.5-5.1); Sodium 135 mmol/L (136-145)
[2022-10-05 07:06] LABS: INR 4.5 (0.9-1.1); Prothrombin Time 43.8 Seconds (9.0-12.0)
[2022-10-05] MEDS: BUMETANIDE 1 MG TAB PO SCH (09:13)
[2022-10-05] MEDS: MAGNESIUM OXIDE 400 MG TAB PO SCH (09:14)
[2022-10-05] MEDS: FEXOFENADINE HCL 180 MG TAB PO SCH (09:14)
[2022-10-05] MEDS: FLUTICASONE/VILANTEROL 100/25MCG 14 PUFFS/INHALER INH SCH (09:14)
[2022-10-05] MEDS: SPIRONOLACTONE 100 MG TAB PO SCH (09:15)
[2022-10-05] MEDS: PANTOprazole 40 MG TAB PO SCH (09:15)
[2022-10-05] MEDS: POTASSIUM CHLORIDE CRTAB 20 MEQ TABCR PO SCH (09:15)
[2022-10-05] MEDS: UMECLIDINIUM BROMIDE 62.5MCG/BLISTER 7 PUFFS/INHALER INH SCH (09:16)
[2022-10-05] MEDS: MoRPHine SULFATE 2 MG/ML CARP IV PRN (09:17)
[2022-10-05] MEDS: ALPRAZolam 0.5 MG TABLET PO PRN ×2 (09:17→18:02)
[2022-10-05] MEDS: methylPREDNISolone 40 MG in SYRINGE 0 ML IV SCH (10:18)
[2022-10-05] MEDS ORDERED: REMDESIVIR 200 MG in SODIUM CHLORIDE 0.9% 210 ML IV STA (12:05)
[2022-10-05] MEDS ORDERED: AZITHROMYCIN 500 MG in DEXTROSE 5% 250 ML IV STA (12:10)
[2022-10-05] MEDS: DOCUSATE SODIUM/SENNA 50/8.6MG TAB PO SCH (12:50)
[2022-10-05] MEDS: POLYETHYLENE (MIRALAX) 17 GM PACK PO SCH (12:50)
--- NOTE | 2022-10-05 12:51 | Hospitalist Progress Note ---
Date of Service October 05, 2022 Assessment & Plan (1) Acute asthma exacerbation: Plan: Main reason for admission Switch her prednisone to Solu-Medrol as she appears to respond better to this. Solu-Medrol 40 mg IV twice daily DuoNebs every 4 hourly Continue her routine maintenance inhalers 10/04-patient being continued on IV Solu-Medrol for her acute asthma exacerbation present along with COVID-19 infection Continue IV steroids and bronchodilators as needed Continue Mucinex to promote expectoration Patient reports symptomatically feeling better and no evidence of worsening hypoxia noted Patient reports severe back pain and requests pain relief-will give morphine for short duration only and encourage ambulation Plan discussed with patient in detail and if patient continues to improve consider DC in 24 to 48 hours 10/05 Patient is on room air and inflammatory markers are improving. However, clinically she continues to be short of breatj, continues to wheeze and require frequent nebs. will switch steroid to decadron. will add IV azithromycin will add remdesevir Patient agreed to above treatment plan after discussing risk and benefits. will obtain sputum culture. Patient also needs to be evaluated for an acute knee injury as stated below prior to discharge. (2) COVID-19: Plan: Not vaccinated. Day 7 of illness on admission. Not within the first 5 days of illness and not hypoxic enough to qualify for further treatment Symptomatic treatment only for this Isolation precautions (3) OLIMPIA (obstructive sleep apnea): Plan: CPAP at bedtime (4) GERD (gastroesophageal reflux disease): Plan: Switch omeprazole for pantoprazole per hospital formulary (5) Anticoagulant long-term use: Plan: warfarin on hold due to elevated INR> (6) Congestive heart failure: Plan: Chronic right sided. Continue Bumex (7) Right knee pain: Plan: Given clinical appearance of being swollen and very tender to palpation as well as her clinical history, concern over ligamentous tear. will obtain an MRI of her right knee . Plan VTE prophylaxis -INR therapeutic Diet -heart healthy Disposition -observation status to [facility] Admission and Anticipated Discharge Date Admission Date: October 04, 2022 Subjective Patient reports having significant generalized weakness, fatigue, and pain. She reports she is unable to walk well after sustaining an injury while bringing her to the hospital for COVID. She states he right foot was planted and her fell on her and her leg twisted. She has been having significant pain in her right knee since. Patient reports feeling dyspneic, and coughing up sputum throughout the day. Sputum is yellow. She continues to require nebs as she states she is short of breath. Review of Systems Review of Systems: All systems reviewed & are unremarkable except as noted in HPI & below Physical Exam Physical Exam: Constitutional: well developed and + acute distress; + not well nourished Eyes: + anicteric sclerae; normal pupil size ENMT: external ear and nose normal, oropharynx normal lyons facies Respiratory: able to speak in complete sentences and + prolonged expiratory phase; no stridor Auscultation: + wheezes (expiratory throughout); breath sounds present, no diminished lung sounds, no crackles, no rales and no rhonchi Cardiovascular: RRR, no murmur, no edema Gastrointestinal (Abdomen): normal bowel sounds, soft, nontender, no hepatosplenomegaly Musculoskeletal: no cyanosis or clubbing, extremities motor strength 5/5 Skin: no rashes, warm and dry Neurologic: moves all extremities and awake; no focal motor deficits and not confused Psychiatric: A+Ox3, euthymic affect Results & Data Results & Data ([facility]) Vital Signs (Past 12 Hours) Vital Signs Temp Pulse Resp BP Pulse Ox O2 Del Method O2 Flow Rate 10/05/22 11:17 61 20 96 Room Air 10/05/22 08:01 36.5 C 54 L 19 155/81 H 95 Room Air 10/05/22 07:08 53 L 20 97 CPAP 2 10/05/22 03:03 36.6 C 68 24 173/95 H 96 BiPAP 10/05/22 03:01 30 H 2 10/05/22 02:29 60 15 95 CPAP 2 PG Care Time/CCT Total # of Minutes Spent Total Time Spent with Patient: Total time spent is greater than 50% in coordination of care (as documented) at patient's floor/unit and/or counseling patient: Coding Level of Care Code 48756 SUB INP/OBS CARE 3/50MIN Diagnoses Acute asthma exacerbation J45.901 COVID-19 U07.1 OLIMPIA (obstructive sleep apnea) G47.33 GERD (gastroesophageal reflux disease) K21.9 Anticoagulant long-term use Z79.01 Congestive heart failure I50.9 Right knee pain M25.561
[2022-10-05] MEDS ORDERED: MoRPHine SULFATE 2 MG/ML CARP IV ONE (13:00)
[2022-10-05] MEDS: ACETAMINOPHEN 325 MG TAB PO SCH (17:58)
[2022-10-05] MEDS: ALPRAZolam 0.5 MG TABLET PO SCH (20:34)
[2022-10-05] MEDS: ZOLPIDEM TARTRATE 10 MG TAB PO PRN (20:35)
[2022-10-05] MEDS: oxyCODONE HCL IR 5 MG TAB (IMMEDIATE RELEASE) PO PRN (21:03)
[2022-10-05] MEDS ORDERED: ALBUT/IPRATROP 3MG/0.5MG NEB 3 ML VIAL ONE ×2 (22:33→22:34)
[2022-10-05] MEDS: BACLOFEN 20 MG TAB PO SCH (22:40)
[2022-10-05] MEDS: MONTELUKAST SODIUM 10 MG TABLET PO SCH (22:41)
[2022-10-06] MEDS: ALBUT/IPRATROP 3MG/0.5MG NEB 3 ML VIAL NEB SCH ×5 (01:04→19:14)
[2022-10-06] MEDS: ACETAMINOPHEN 325 MG TAB PO SCH ×5 (02:59→23:23)
[2022-10-06] MEDS: oxyCODONE HCL IR 5 MG TAB (IMMEDIATE RELEASE) PO PRN ×3 (06:26→20:22)
[2022-10-06] MEDS: POLYETHYLENE (MIRALAX) 17 GM PACK PO SCH (08:07)
[2022-10-06] MEDS: DOCUSATE SODIUM/SENNA 50/8.6MG TAB PO SCH (08:07)
[2022-10-06 08:28] LABS: INR 2.7 (0.9-1.1); Prothrombin Time 27.2 Seconds (9.0-12.0)
[2022-10-06] MEDS ORDERED: ERGOCALCIFEROL 50,000 UNITS 1250 MCG CAP PO SCH (09:00)
[2022-10-06] MEDS: SPIRONOLACTONE 100 MG TAB PO SCH (09:03)
[2022-10-06] MEDS: POTASSIUM CHLORIDE CRTAB 20 MEQ TABCR PO SCH (09:03)
[2022-10-06] MEDS: MAGNESIUM OXIDE 400 MG TAB PO SCH (09:04)
[2022-10-06] MEDS: UMECLIDINIUM BROMIDE 62.5MCG/BLISTER 7 PUFFS/INHALER INH SCH (09:04)
[2022-10-06] MEDS: FLUTICASONE/VILANTEROL 100/25MCG 14 PUFFS/INHALER INH SCH (09:05)
[2022-10-06] MEDS: PANTOprazole 40 MG TAB PO SCH (09:05)
[2022-10-06] MEDS: BUMETANIDE 1 MG TAB PO SCH (09:06)
[2022-10-06] MEDS: dexAMETHasone 6 MG in SYRINGE 0 ML IV SCH (09:06)
[2022-10-06] MEDS: ALPRAZolam 0.5 MG TABLET PO PRN (09:15)
--- NOTE | 2022-10-06 10:28 | Orthopedic Consultation ---
Date of Consultation October 06, 2022 Assessment & Plan (1) Right knee pain: Discussed and reviewed exam findings with patient. She has a history of osteoarthritis most likely an exacerbation of her OA. No suspicion of gout or infection. At this time we will obtain an x-ray. Based on exam and history I do not feel it is necessary to obtain an MRI. Patient will be weightbearing as tolerated utilizing a walker. Applied an Amadou wrap to the right knee. Patient may continue with this, she does feel it is comforting. She will continue using ice over the Amadou wrap as needed. She is receiving IV steroids, discussed hopefully this will give her some relief as well. Recommend participation in PT and OT. Continue with pain management per primary team. Present on Admission?: Yes History of Present Illness Reason for Consultation: Right knee pain Requesting Physician: Dr. Zheng Attending Physician: Jose Enrique Zheng History of Present Illness Patient is a 52-year-old female who was referred for our services to be consulted on for right knee pain. She was seen bedside this AM. She is sitting upright in bedside chair. She explains on 10/03/2022 she was bringing her into [facility] due to COVID. She states she went to get him out of the truck and into a wheelchair when her right knee stayed planted and she twisted her body getting her into the wheelchair. She states that she did not fall and denies him falling on her. She states since that time she has been having increased pain with ambulating. She states she has weakness in her lower extremities which has been ongoing. She does have a history of being treated for bilateral knee osteoarthritis by Dr. Lopez. She does report receiving corticosteroid injections with her most recent one in August. She states she does get relief from the injections however she knows it is too soon to have another one. She states her pain is in the medial aspect of the right knee. She states anytime she puts more weight on it she feels like the knee is going to buckle. She does not have any history of having any previous surgery on the knee. She states her legs will swell the more she is on them. She denies any redness over the knee. She does have a history of being on steroids for periods of time and has discoloration of her bilateral lower extremities which is unchanged. She denies any fever or chills. She is taking pain medication while she is here and has a history of having narcotics to treat the knee pain at home. She is also given Tylenol and feels this does help some. She utilizes a walker at home for all activities.She states she has been offered bracing by orthopedics however she does not want to use this because of her body habitus and ill fitting. She notes that Dr. Lopez told her she needs knee replacements however because of her breathing issues he will not operate on her. Allergies Allergy/AdvReac Type Severity Reaction Status Date / Time chlorhexidine Allergy Intermediate ITCHING Verified 10/03/22 15:47 budesonide Allergy Unknown Unknown Verified 10/03/22 15:47 azithromycin Allergy Unknown Verified 10/03/22 15:47 adhesive AdvReac Intermediate TAPE- Verified 10/03/22 15:47 SEVERE ITCHING clarithromycin AdvReac Intermediate NAUSEA Verified 10/03/22 15:47 clindamycin AdvReac Mild NAUSEA Verified 10/03/22 15:47 tramadol AdvReac Mild dizziness,S Verified 10/03/22 15:47 YNCOPE Home Medications Medication Instructions Recorded Confirmed Type tiotropium bromide 1.25 1 puff inhalation BID 05/09/18 10/03/22 History mcg/actuation mist for inhalation (Spiriva Respimat) Jobst Stockings (misc) #1 ea 02/15/20 10/03/22 Rx CPAP Machine #1 ea 05/30/20 10/03/22 Rx Oxygen Home #1 ea 05/30/20 10/03/22 Rx syringe with needle, safety 3 mL #12 ea 07/30/20 10/03/22 Rx 25 gauge x 1" (BD Integra Syringe) Wheelchair (Manual) See Rx Instructions .Route 10/02/20 10/03/22 Rx .COMPLEX #1 ea benralizumab 30 mg/mL subcutaneous 30 mg subcut .[id number] 02/06/21 10/03/22 History syringe (Fasenra) albuterol sulfate 90 mcg/actuation 2 puff inhalation 6XD PRN 04/11/21 10/03/22 Rx aerosol inhaler shortness of breath or wheezing #3 Inhalers fexofenadine 180 mg tablet 180 mg PO QAM 10/28/21 10/03/22 History (Susanne Allergy) budesonide-formoterol HFA 80 1 inh inhalation BID 01/08/22 10/03/22 History mcg-4.5 mcg/actuation aerosol inhaler (Symbicort) acetaminophen 500 mg oral powder 1,000 mg PO Q6H PRN Pain 03/10/22 10/03/22 History packet (Tylenol Extra Strength) bumetanide 2 mg tablet 2 mg PO QAM 04/30/22 10/03/22 History fluconazole 150 mg tablet 150 mg PO .Q3DAYS FOR 2 DOSES PRN 05/31/22 10/03/22 History flare up ipratropium 0.5 mg-albuterol 3 mg 3 ml inhalation Q4 PRN Shortness 05/31/22 10/03/22 History (2.5 mg base)/3 mL nebulization Of Breath soln alprazolam 1 mg tablet 1 mg PO TID PRN Anxiety #90 tabs 09/17/22 10/03/22 Rx alprazolam 2 mg tablet (Xanax) 2 mg PO HS anxiety #30 tabs 09/17/22 10/03/22 Rx baclofen 20 mg tablet 20 mg PO HS #90 tabs 09/17/22 10/03/22 Rx cyanocobalamin (vitamin B-12) See Rx Instructions .Route 09/17/22 10/03/22 Rx 1,000 mcg/mL injection solution .COMPLEX #4 mL ergocalciferol (vitamin D2) 1,250 50,000 unit PO WE #12 caps 09/17/22 10/03/22 Rx mcg (50,000 unit) capsule (Vitamin D2) hydrocodone 10 mg-acetaminophen 1 tab PO Q12H PRN Pain #30 tabs 09/17/22 10/03/22 Rx 325 mg tablet magnesium oxide 400 mg (241.3 mg 400 mg PO QAM #90 tabs 09/17/22 10/03/22 Rx magnesium) tablet montelukast 10 mg tablet 10 mg PO HS #90 tabs 09/17/22 10/03/22 Rx (Singulair) omeprazole 40 mg capsule,delayed 40 mg PO QAM #90 caps 09/17/22 10/03/22 Rx release potassium chloride 20 mEq 40 meq PO QAM #180 tabs 09/17/22 10/03/22 Rx tablet,extended release spironolactone 100 mg tablet 100 mg PO QAM #90 tabs 09/17/22 10/03/22 Rx warfarin 10 mg tablet 10 mg PO SUMOWEFRSA #90 tabs 09/17/22 10/03/22 Rx warfarin 10 mg tablet 15 mg PO TUTH #90 tabs 09/17/22 10/03/22 Rx zolpidem 10 mg tablet 10 mg PO HS PRN insomnia #30 tabs 09/17/22 10/03/22 Rx amoxicillin 875 mg-potassium 1 tab PO BID #14 tabs 10/01/22 10/03/22 Rx clavulanate 125 mg tablet bumetanide 2 mg tablet 2 mg PO .BID UD 10/03/22 10/03/22 History prednisone 20 mg tablet 40 mg PO .TAPER UD 10/03/22 10/03/22 History Patient History Medical History Acquired deviated nasal septum Acute and chronic respiratory failure Acute DVT (deep venous thrombosis) Allergic rhinitis Anxiety Ascending cholangitis Asthma Asthma exacerbation Candidiasis of mouth and esophagus Cholangitis Choledocholithiasis Chronic back pain Chronic pain Chronic sinusitis Constipation COPD exacerbation Dysthymic disorder Edema GERD (gastroesophageal reflux disease) GERD without esophagitis IBS (irritable bowel syndrome) Insomnia Iron deficiency 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) Obstructive sleep apnea of adult Pre-diabetes Pulmonary emboli Pulmonary embolism (2012) Rectus sheath hematoma Recurrent pulmonary emboli Severe asthma Severe persistent asthma, poorly-controlled Subtherapeutic international normalized ratio (INR) Vitamin B12 deficiency Vitamin D deficiency Surgical History History of appendectomy History of cholecystectomy History of herniorrhaphy History of hysterectomy History of nasal septoplasty History of tonsillectomy History of total adrenalectomy Hx of endoscopic retrograde cholangiopancreatography Hx of fracture of clavicle Nausea and vomiting after administration of anesthetic agent Family History Aunt Breast cancer Ovarian cancer Grandmother (Maternal) Breast cancer Depression Osteoporosis Dyslipidemia Diabetes Grandfather (Paternal) Myocardial infarction Alzheimer disease COPD (chronic obstructive pulmonary disease) Congenital heart disease Dyslipidemia Congestive heart failure Diabetes Grandmother (Paternal) Myocardial infarction Atrial fibrillation COPD (chronic obstructive pulmonary disease) Osteoporosis Uncle Prostate cancer Sister Bipolar disorder Depression Father Brain tumor Hypertension Heart disease Dyslipidemia Family/Other Cancer Colon cancer Grandfather (Maternal) COPD (chronic obstructive pulmonary disease) Lung cancer Dyslipidemia Diabetes Brother Congenital heart disease Mother Depression Dyslipidemia Diabetes Social History Smoking Status: Never smoker Tobacco Type: Cigarettes Age Started Using Tobacco: 21; Age Quit Using Tobacco: 27; packs per day: 0.5; Second Hand Exposure: No; Do You Dip or Chew Tobacco: No; Tobacco Cessation Education Requested by Patient: No Hx Alcohol Use: Yes Alcohol type: beer Alcohol Intake Frequency: 2-4 x/Month Hx Substance Use: No Preferred Language: Russian Communication Ability: Effective Visual Impairment: No Limitations Mixed [employer] Worker Required: No Beliefs That Will Affect Care: None marital status: Current Living Situation: Spouse Current Living Situation Comment: home with current occupational status: 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 She has palpable tenderness over the medial aspect of the right knee. Patient is able to fully extend the right knee flexion is limited to approximately 80 to 85 degrees seated. No laxity is appreciated with varus and valgus stresses. Unab le to tolerate special tested due to pain and in seated position. Calf is soft and nontender. Strength is 4/5 with quad and hamstring. Right lower extremity is neurovascularly intact. Results & Data ([facility]) Vital Signs (Past 12 Hours) Vital Signs Temp Pulse Pulse Pulse Resp BP Pulse Ox 10/06/22 08:18 90 18 96 10/06/22 08:12 36.5 C 59 L 95 H 16 167/95 H 95 10/06/22 01:05 70 24 96 10/06/22 01:05 70 16 95 10/05/22 22:40 36.5 C 75 75 20 175/80 H 95 O2 Del Method O2 Flow Rate 10/06/22 08:18 Room Air 10/06/22 08:12 Room Air 10/06/22 01:05 CPAP 2 10/06/22 01:05 2 10/05/22 22:40 Room Air Diagnostic Findings No current imaging
--- NOTE | 2022-10-06 11:00 | XRay Report ---
XR knee RT 3V CLINICAL HISTORY: pain TECHNIQUE: 3 views of the right knee were obtained. Comparison: Comparison is made to right tibia and fibula radiographs 01/08/2022 FINDINGS: There is no evidence of an acute fracture. Degenerative changes are seen in the knee joint. No joint effusion is seen. No soft tissue abnormality is seen. IMPRESSION: Degenerative changes without evidence of acute injury. ACT 112: Negative or not required by law. Electronically signed by: Rob Camejo M.D. 10/06/2022 10:58 AM
[2022-10-06] MEDS: FEXOFENADINE HCL 180 MG TAB PO SCH (12:35)
[2022-10-06] MEDS ORDERED: WARFARIN SOD 7.5 MG TAB PO SCH (16:00)
--- NOTE | 2022-10-06 17:10 | Hospitalist Progress Note ---
Date of Service October 06, 2022 Assessment & Plan (1) Acute asthma exacerbation: Plan: Main reason for admission Switch her prednisone to Solu-Medrol as she appears to respond better to this. Solu-Medrol 40 mg IV twice daily DuoNebs every 4 hourly Continue her routine maintenance inhalers 10/04-patient being continued on IV Solu-Medrol for her acute asthma exacerbation present along with COVID-19 infection Continue IV steroids and bronchodilators as needed Continue Mucinex to promote expectoration Patient reports symptomatically feeling better and no evidence of worsening hypoxia noted Patient reports severe back pain and requests pain relief-will give morphine for short duration only and encourage ambulation Plan discussed with patient in detail and if patient continues to improve consider DC in 24 to 48 hours 10/05 Patient is on room air and inflammatory markers are improving. However, clinically she continues to be short of breatj, continues to wheeze and require frequent nebs. will switch steroid to decadron. will add IV azithromycin will add remdesevir Patient agreed to above treatment plan after discussing risk and benefits. will obtain sputum culture. Patient also needs to be evaluated for an acute knee injury as stated below prior to discharge. 10/06 Patient reports breathing better, will continue current treatment and monitor. (2) COVID-19: Plan: Not vaccinated. Day 7 of illness on admission. Not within the first 5 days of illness and not hypoxic enough to qualify for further treatment Symptomatic treatment only for this Isolation precautions (3) OLIMPIA (obstructive sleep apnea): Plan: CPAP at bedtime (4) GERD (gastroesophageal reflux disease): Plan: Switch omeprazole for pantoprazole per hospital formulary (5) Anticoagulant long-term use: Plan: warfarin on hold due to elevated INR> (6) Congestive heart failure: Plan: Chronic right sided. Continue Bumex (7) Right knee pain: Plan: Given clinical appearance of being swollen and very tender to palpation as well as her clinical history, concern over ligamentous tear. consulted ortho, no indication for MRI. Plan VTE prophylaxis -INR therapeutic Diet -heart healthy Disposition -observation status to [facility] Admission and Anticipated Discharge Date Admission Date: October 04, 2022 Subjective Patient reports feeling better. Her SOB appears to be improved. She reported feeling dizzy when she wa wlaking to the toilet. Review of Systems Review of Systems: All systems reviewed & are unremarkable except as noted in HPI & below Physical Exam Physical Exam: Constitutional: well developed and + acute distress; + not well nourished Eyes: + anicteric sclerae; normal pupil size ENMT: external ear and nose normal, oropharynx normal lyons facies Respiratory: able to speak in complete sentences and + prolonged expiratory phase; no stridor Auscultation: +decreased wheezing, breath sounds present, no diminished lung sounds, no crackles, no rales and no rhonchi Cardiovascular: RRR, no murmur, no edema Gastrointestinal (Abdomen): normal bowel sounds, soft, nontender, no hepatosplenomegaly Musculoskeletal: no cyanosis or clubbing, extremities motor strength 5/5 Skin: no rashes, warm and dry Neurologic: moves all extremities and awake; no focal motor deficits and not confused Psychiatric: A+Ox3, euthymic affect Results & Data Results & Data ([facility]) Vital Signs (Past 12 Hours) Vital Signs Temp Pulse Pulse Resp BP Pulse Ox O2 Del Method 10/06/22 11:32 97 H 20 94 Room Air 10/06/22 11:07 Room Air 10/06/22 10:32 36.7 C 65 20 164/89 H 94 Room Air 10/06/22 08:18 90 18 96 Room Air 10/06/22 08:12 36.5 C 59 L 95 H 16 167/95 H 95 Room Air PG Care Time/CCT Total # of Minutes Spent Total Time Spent with Patient: Total time spent is greater than 50% in coordination of care (as documented) at patient's floor/unit and/or counseling patient: Coding Level of Care Code 88543 SUB INP/OBS CARE 3/50MIN Diagnoses Acute asthma exacerbation J45.901 COVID-19 U07.1 OLIMPIA (obstructive sleep apnea) G47.33 GERD (gastroesophageal reflux disease) K21.9 Anticoagulant long-term use Z79.01 Congestive heart failure I50.9 Right knee pain M25.561
[2022-10-06] MEDS: MONTELUKAST SODIUM 10 MG TABLET PO SCH (20:21)
[2022-10-06] MEDS: ALPRAZolam 0.5 MG TABLET PO SCH (20:21)
[2022-10-06] MEDS: ZOLPIDEM TARTRATE 10 MG TAB PO PRN (20:22)
[2022-10-06] MEDS: BACLOFEN 20 MG TAB PO SCH (20:23)
[2022-10-06] MEDS ORDERED: ALBUT/IPRATROP 3MG/0.5MG NEB 3 ML VIAL NEB PRN (20:52)
[2022-10-07] MEDS: ALPRAZolam 0.5 MG TABLET PO PRN ×2 (02:07→12:37)
[2022-10-07] MEDS: oxyCODONE HCL IR 5 MG TAB (IMMEDIATE RELEASE) PO PRN ×3 (02:09→21:15)
[2022-10-07] MEDS: ACETAMINOPHEN 325 MG TAB PO SCH ×3 (06:12→17:37)
[2022-10-07] MEDS: ALBUT/IPRATROP 3MG/0.5MG NEB 3 ML VIAL NEB SCH ×4 (07:21→19:53)
[2022-10-07 08:45] LABS: Prothrombin Time 20.4 Seconds (9.0-12.0)
[2022-10-07] MEDS: BUMETANIDE 1 MG TAB PO SCH (08:48)
[2022-10-07] MEDS: POTASSIUM CHLORIDE CRTAB 20 MEQ TABCR PO SCH (09:16)
[2022-10-07] MEDS: SPIRONOLACTONE 100 MG TAB PO SCH (09:17)
[2022-10-07] MEDS: MAGNESIUM OXIDE 400 MG TAB PO SCH (09:17)
[2022-10-07] MEDS: UMECLIDINIUM BROMIDE 62.5MCG/BLISTER 7 PUFFS/INHALER INH SCH (09:18)
[2022-10-07] MEDS: DOCUSATE SODIUM/SENNA 50/8.6MG TAB PO SCH (09:18)
[2022-10-07] MEDS: FLUTICASONE/VILANTEROL 100/25MCG 14 PUFFS/INHALER INH SCH (09:18)
[2022-10-07] MEDS: FEXOFENADINE HCL 180 MG TAB PO SCH (09:18)
[2022-10-07] MEDS: dexAMETHasone 6 MG in SYRINGE 0 ML IV SCH (09:20)
[2022-10-07] MEDS: POLYETHYLENE (MIRALAX) 17 GM PACK PO SCH (09:20)
[2022-10-07] MEDS: PANTOprazole 40 MG TAB PO SCH (09:20)
[2022-10-07] MEDS: WARFARIN SOD 10 MG TAB PO SCH (15:12)
[2022-10-07] MEDS: ZOLPIDEM TARTRATE 10 MG TAB PO PRN (21:16)
[2022-10-07] MEDS: ALPRAZolam 0.5 MG TABLET PO SCH (21:16)
[2022-10-07] MEDS: BACLOFEN 20 MG TAB PO SCH (21:18)
[2022-10-07] MEDS: MONTELUKAST SODIUM 10 MG TABLET PO SCH (21:18)
--- NOTE | 2022-10-07 21:49 | Hospitalist Progress Note ---
Date of Service October 07, 2022 Assessment & Plan (1) Acute asthma exacerbation: Plan: Main reason for admission Switch her prednisone to Solu-Medrol as she appears to respond better to this. Solu-Medrol 40 mg IV twice daily DuoNebs every 4 hourly Continue her routine maintenance inhalers 10/04-patient being continued on IV Solu-Medrol for her acute asthma exacerbation present along with COVID-19 infection Continue IV steroids and bronchodilators as needed Continue Mucinex to promote expectoration Patient reports symptomatically feeling better and no evidence of worsening hypoxia noted Patient reports severe back pain and requests pain relief-will give morphine for short duration only and encourage ambulation Plan discussed with patient in detail and if patient continues to improve consider DC in 24 to 48 hours 10/05 Patient is on room air and inflammatory markers are improving. However, clinically she continues to be short of breatj, continues to wheeze and require frequent nebs. will switch steroid to decadron. Patient agreed to above treatment plan after discussing risk and benefits. will obtain sputum culture. Remdesevir ordered. Patient also needs to be evaluated for an acute knee injury as stated below prior to discharge. 10/06 Patient reports breathing better, Remdesevir stopped as patient remains on RA, and is already improving, anticipate short hospital stay. will continue current treatment and monitor. 10/07 Patient improved with decadron would only continue for an additonal 3 days post discharge as patient was on corticosteroids prior. Anticipate discharge on 10/08 (2) COVID-19: Plan: Not vaccinated. Day 7 of illness on admission. Not within the first 5 days of illness and not hypoxic enough to qualify for further treatment Symptomatic treatment only for this Isolation precautions (3) OLIMPIA (obstructive sleep apnea): Plan: CPAP at bedtime (4) GERD (gastroesophageal reflux disease): Plan: Switch omeprazole for pantoprazole per hospital formulary (5) Anticoagulant long-term use: Plan: warfarin on hold due to elevated INR. resumed once INR reached goal, may consider cutting warfarin at discharge, 10 mg daily and 15 mg on . (6) Congestive heart failure: Plan: Chronic right sided. Continue Bumex (7) Right knee pain: Plan: Given clinical appearance of being swollen and very tender to palpation as well as her clinical history, concern over ligamentous tear. consulted ortho, no indication for MRI. Pain medicine is controlling her pain On round the clock acetamnophen and PRN oxycodone. Plan VTE prophylaxis -INR therapeutic Diet -heart healthy Admission and Anticipated Discharge Date Admission Date: October 04, 2022 Subjective Patient reports having significant improvement since she was first seen by me She reports less SOB and her pain in her right knee is also improved. Review of Systems Review of Systems: All systems reviewed & are unremarkable except as noted in HPI & below Physical Exam Physical Exam: Constitutional: well developed and + acute distress; + not well nourished Eyes: + anicteric sclerae; normal pupil size ENMT: external ear and nose normal, oropharynx normal lyons facies Respiratory: able to speak in complete sentences Auscultation: +decreased wheezing, breath sounds present, no diminished lung sounds, no crackles, no rales and no rhonchi Cardiovascular: RRR, no murmur, no edema Gastrointestinal (Abdomen): normal bowel sounds, soft, nontender, no hepatosplenomegaly Musculoskeletal: no cyanosis or clubbing, extremities motor strength 5/5 Skin: no rashes, warm and dry Neurologic: moves all extremities and awake; no focal motor deficits and not confused Psychiatric: A+Ox3, euthymic affect Results & Data Results & Data ([facility]) Vital Signs (Past 12 Hours) Vital Signs Temp Pulse Resp BP Pulse Ox O2 Del Method 10/07/22 19:26 36.9 C 74 20 130/82 96 Room Air 10/07/22 15:42 76 18 97 Room Air 10/07/22 15:09 36.6 C 76 20 152/86 H 97 Room Air 10/07/22 11:40 62 18 97 Room Air 10/07/22 11:11 Room Air PG Care Time/CCT Total # of Minutes Spent Total Time Spent with Patient: Total time spent is greater than 50% in coordination of care (as documented) at patient's floor/unit and/or counseling patient: Coding Level of Care Code 53292 SUB INP/OBS CARE 3/50MIN Diagnoses Acute asthma exacerbation J45.901 COVID-19 U07.1 OLIMPIA (obstructive sleep apnea) G47.33 GERD (gastroesophageal reflux disease) K21.9 Anticoagulant long-term use Z79.01 Congestive heart failure I50.9 Right knee pain M25.561
[2022-10-08] MEDS: ACETAMINOPHEN 325 MG TAB PO SCH ×3 (02:39→12:42)
[2022-10-08] MEDS: ALBUT/IPRATROP 3MG/0.5MG NEB 3 ML VIAL NEB SCH ×2 (07:20→11:47)
[2022-10-08] MEDS: dexAMETHasone 6 MG in SYRINGE 0 ML IV SCH (07:31)
[2022-10-08] MEDS: oxyCODONE HCL IR 5 MG TAB (IMMEDIATE RELEASE) PO PRN (07:44)
--- NOTE | 2022-10-08 07:56 | Hospitalist Progress Note ---
Date of Service October 08, 2022 Assessment & Plan (1) Acute asthma exacerbation: Plan: acute serious risk, improving , covid infection with pulmonary symptoms, initial treatment with Solu-Medrol switched to Decadron with dyspnea and covid infection, Remdesevir ordered, stopped as hypoxia resolved . DuoNebs every 4 hourly Continue her routine maintenance inhalers severe back pain and requests pain relief-will give morphine for short duration only and encourage ambulation (2) COVID-19: Plan: Not vaccinated. Day 7 of illness on admission. Isolation precautions (3) OLIMPIA (obstructive sleep apnea): Plan: chronic and stable CPAP at bedtime (4) GERD (gastroesophageal reflux disease): Plan: chronic and stable, continue ppi (5) Anticoagulant long-term use: Plan: chronic and stable, warfarin on hold due to elevated INR. resumed once INR reached goal, may consider cutting warfarin at discharge, 10 mg daily and 15 mg on . (6) Congestive heart failure: Plan: Chronic right sided., stable Continue Bumex (7) Right knee pain: Plan: Given clinical appearance of being swollen and very tender to palpation, X Ray shows degenerative changes as well as her clinical history, concern over ligamentous tear. consulted ortho, no indication for MRI. Pain medicine is controlling her pain On round the clock acetamnophen and PRN oxycodone. Plan VTE prophylaxis -INR therapeutic Admission and Anticipated Discharge Date Admission Date: October 04, 2022 Results & Data Results & Data ([facility]) Vital Signs (Past 12 Hours) Vital Signs Temp Pulse Pulse Pulse Resp BP Pulse Ox 10/08/22 07:29 98.1 F 61 61 14 94 10/08/22 01:15 68 21 96 10/08/22 00:03 98.4 F 59 L 19 169/90 H 95 O2 Del Method O2 Flow Rate 10/08/22 07:29 Room Air 10/08/22 01:15 2 10/08/22 00:03 Room Air PG Care Time/CCT Total # of Minutes Spent Total Time Spent with Patient: Total time spent is greater than 50% in coordination of care (as documented) at patient's floor/unit and/or counseling patient: Coding Diagnoses Acute asthma exacerbation J45.901 COVID-19 U07.1 OLIMPIA (obstructive sleep apnea) G47.33 GERD (gastroesophageal reflux disease) K21.9 Anticoagulant long-term use Z79.01 Congestive heart failure I50.9 Right knee pain M25.561
[2022-10-08] MEDS: FEXOFENADINE HCL 180 MG TAB PO SCH (08:51)
[2022-10-08] MEDS: DOCUSATE SODIUM/SENNA 50/8.6MG TAB PO SCH (08:52)
[2022-10-08] MEDS: BUMETANIDE 1 MG TAB PO SCH (09:40)
[2022-10-08] MEDS: POLYETHYLENE (MIRALAX) 17 GM PACK PO SCH (09:46)
[2022-10-08] MEDS: SPIRONOLACTONE 100 MG TAB PO SCH (09:46)
[2022-10-08] MEDS: POTASSIUM CHLORIDE CRTAB 20 MEQ TABCR PO SCH (09:46)
[2022-10-08] MEDS: MAGNESIUM OXIDE 400 MG TAB PO SCH (09:46)
[2022-10-08] MEDS: PANTOprazole 40 MG TAB PO SCH (09:48)
[2022-10-08] MEDS: FLUTICASONE/VILANTEROL 100/25MCG 14 PUFFS/INHALER INH SCH (10:55)
[2022-10-08] MEDS: UMECLIDINIUM BROMIDE 62.5MCG/BLISTER 7 PUFFS/INHALER INH SCH (10:56)
[2022-10-08] MEDS: ALPRAZolam 0.5 MG TABLET PO PRN (11:02)
[2022-10-08] MEDS ORDERED: CYANOCOBALAMIN 1000 MCG/ML VIAL IM ONE (12:00)
--- NOTE | 2022-10-08 17:55 | Discharge Summary ---
Date of Service October 08, 2022 Admission HPI Per Admitting Provider Jessica Sheppard is a 52 year old female with severe asthma who presents to the ER with shortness of breath. She reports symptoms started on Wednesday (6 days ago). Productive cough with yellow and clear sputum, short of breath and chest tightness. On Wednesday her shortness of breath became much worse. On Wednesday she called her PCP and was prescribed Augmentin which she started on Wednesday due to issues with filling it at the pharmacy and was advised to increase her chronic prednisone to 40mg PO daily. 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 Associated symp toms of decreased appetite, generalized weakness and nasal congestion. No sinus pain. She is her in the ER with her . Both patients have tested positive for COVID-19. She reports previous home tests were negative. Principal Diagnosis acute hypoxic respiratory failure asthma exacerbation covid infection Discharge Exam Patient with malar rash on her face Patient has some expiratory wheezes but she states this is her baseline Patient is morbidly obese Discharge Data Allergies Allergy/AdvReac Type Severity Reaction Status Date / Time chlorhexidine Allergy Intermediate ITCHING Verified 10/03/22 15:47 budesonide Allergy Unknown Unknown Verified 10/03/22 15:47 azithromycin Allergy Unknown Verified 10/03/22 15:47 adhesive AdvReac Intermediate TAPE- Verified 10/03/22 15:47 SEVERE ITCHING clarithromycin AdvReac Intermediate NAUSEA Verified 10/03/22 15:47 clindamycin AdvReac Mild NAUSEA Verified 10/03/22 15:47 tramadol AdvReac Mild dizziness,S Verified 10/03/22 15:47 YNCOPE Consultations 10/03/22 16:19 ED Decision to Admit Stat 10/06/22 09:19 Consult Orthopedic Surgery Routine Hospital Course (1) Acute asthma exacerbation: acute serious risk, improving , covid infection with pulmonary symptoms, initial treatment with Solu-Medrol switched to Decadron with dyspnea and covid infection, Remdesevir ordered, stopped as hypoxia resolved . To be home on dexamethasone therapy Continue her routine maintenance inhalers severe back pain and requests pain relief-will give morphine for short duration only and encourage ambulation (2) COVID-19: Not vaccinated. Day 7 of illness on admission. Isolation precautions described the patient at time of discharge continue dexamethasone therapy post discharge (3) OLIMPIA (obstructive sleep apnea): chronic and stable CPAP at bedtime (4) GERD (gastroesophageal reflux disease): chronic and stable, continue ppi (5) Anticoagulant long-term use: chronic and stable, warfarin on hold due to elevated INR. resumed once INR reached goal, may consider cutting warfarin at discharge, 10 mg daily and 15 mg on . (6) Congestive heart failure: Chronic right sided., stable Continue Bumex (7) Right knee pain: Given clinical appearance of being swollen and very tender to palpation, X Ray shows degenerative changes as well as her clinical history, concern over ligamentous tear. consulted ortho, no indication for MRI. Pain medicine is controlling her pain On round the clock acetamnophen and PRN oxycodone. Oxycodone ordered at discharge and she stated hydrocodone did not help this will be tried attempted to be prior authorization Plan Patient's facial rash makes me concerned of lupus Total Time Total Time Spent Total Time Spent (In Minutes): It required greater than 30 minutes to prepare this patient for discharge Discharge Plan Discharge Items Patient Disposition: Home - Self-Care Reason For Visit: COVID, COPD/ASTHMA FLARE Discharge Diagnosis: Covid infection asthma flare elevated INR right knee pain Activity: Resume your previous activity Non-emergency contact: Primary Care Provider Call non-emergency contact if: your symptoms worsen Follow-up/Referrals: Ramon العراقي MD [Primary Care Provider] - 10/16/22 10:30 am (with Ana Rosa Funk PA-C) Diet: Regular Addtl Attending Provider Instructions: Please complete some additional days of steroids to help your asthma and covid Your INR was elevated on presentation, please have your INr checked next week for further recommendations regarding your coumadin dosing. consider referral to [facility] or ortho for continued evaluation of your knee pain Pending Studies at Discharge: No Stand-Alone Forms: My EpiEP, Smoking Cessation Medications and DC Order Prescriptions: New dexamethasone 6 mg tablet 6 mg PO DAILY Qty: 5 0RF oxycodone 5 mg Tablet 10 mg PO Q6H PRN (Reason: pain) Qty: 40 0RF Continued Tylenol Extra Strength 500 mg powder in packet 1,000 mg PO Q6H PRN (Reason: Pain) bumetanide 2 mg tablet 2 mg PO QAM (DME) BD Integra Syringe 3 mL 25 gauge x 1" syringe See Rx Instructions .ROUTE .MEDSUPPLY Qty: 12 3RF Rx Instructions: Use to inject B12 as directed by physician albuterol sulfate 90 mcg/actuation HFA aerosol inhaler 2 puff inhalation 6XD PRN (Reason: shortness of breath or wheezing) Qty: 3 1RF baclofen 20 mg tablet 20 mg PO HS Qty: 90 3RF cyanocobalamin (vitamin B-12) 1,000 mcg/mL solution See Rx Instructions .ROUTE .COMPLEX Qty: 4 3RF Dose Instruction: 1,000 MCG INTRAMUSCULAR ONCE WEEKLY Rx Instructions: 1,000 MCG INTRAMUSCULAR ONCE WEEKLY on ergocalciferol (vitamin D2) [Vitamin D2] 1,250 mcg (50,000 unit) capsule 50,000 unit PO WE Qty: 12 3RF Rx Instructions: Takes on Wednesday magnesium oxide 400 mg (241.3 mg magnesium) tablet 400 mg PO QAM Qty: 90 3RF montelukast [Singulair] 10 mg tablet 10 mg PO HS Qty: 90 3RF omeprazole 40 mg capsule,delayed release(DR/EC) 40 mg PO QAM Qty: 90 3RF potassium chloride 20 mEq tablet extended release 40 meq PO QAM Qty: 180 3RF spironolactone 100 mg tablet 100 mg PO QAM Qty: 90 3RF warfarin 10 mg tablet 15 mg PO TUTH Qty: 90 3RF Protocol: Dose Management Condition: Wednesday Dose/Route: 10 mg Instruction: 1 x 10 mg tablet Condition: Wednesday Dose/Route: 10 mg Instruction: 1 x 10 mg tablet Condition: Wednesday Dose/Route: 10 mg Instruction: 1 x 10 mg tablet Condition: Wednesday Dose/Route: 10 mg Instruction: 1 x 10 mg tablet Condition: Dose/Route: 10 mg Instruction: 1 x 10 mg tablet Condition: Wednesday Dose/Route: 10 mg Instruction: 1 x 10 mg tablet Condition: Wednesday Dose/Route: 10 mg Instruction: 1 x 10 mg tablet Protocol Text: Adjustment Start Date: Wednesday09/15/22 INR Value: 2.4 INR Date: 09/12/22 Recheck Date: 09/18/22 Rx Instructions: Takes Wednesday and warfarin 10 mg tablet 10 mg PO SUMOWEFRSA Qty: 90 3RF Protocol: Dose Management Condition: Wednesday Dose/Route: 10 mg Instruction: 1 x 10 mg tablet Condition: Wednesday Dose/Route: 10 mg Instruction: 1 x 10 mg tablet Condition: Wednesday Dose/Route: 10 mg Instruction: 1 x 10 mg tablet Condition: Wednesday Dose/Route: 10 mg Instruction: 1 x 10 mg tablet Condition: Dose/Route: 10 mg Instruction: 1 x 10 mg tablet Condition: Wednesday Dose/Route: 10 mg Instruction: 1 x 10 mg tablet Condition: Wednesday Dose/Route: 10 mg Instruction: 1 x 10 mg tablet Protocol Text: Adjustment Start Date: Wednesday09/15/22 INR Value: 2.4 INR Date: 09/12/22 Recheck Date: 09/18/22 Rx Instructions: Wednesday, Wednesday, Wednesday, Wednesday, Wednesday (DME) CPAP Machine Misc See Rx Instructions .MEDSUPPLY Qty: 1 0RF Rx Instructions: Auto-titrate machine with setting of 5-15 cm H2O with humidification. She will need appropriate supplies as well. Lifetime need. (DME) Oxygen Home Liters Per Minute See Rx Instructions .ROUTE .MEDSUPPLY Qty: 1 0RF Rx Instructions: 2 liters NC O2 at bedtime/naps, also when needed during the day. Lifetime need. alprazolam 1 mg tablet 1 mg PO TID PRN (Reason: Anxiety) Qty: 90 0RF alprazolam [Xanax] 2 mg tablet 2 mg PO HS Qty: 30 0RF hydrocodone-acetaminophen 10-325 mg tablet 1 tab PO Q12H PRN (Reason: Pain) Qty: 30 0RF Rx Instructions: ongoing therapy zolpidem 10 mg tablet 10 mg PO HS PRN (Reason: insomnia) Qty: 30 0RF Rx Instructions: 10 mg PO qhs prn PRN; (DME) misc Misc See Rx Instructions .ROUTE .MEDSUPPLY Qty: 1 0RF Rx Instructions: Compression Stockings 25mm compression. Please measure for size. Lifetime need. Wheelchair (Manual) Device See Rx Instructions .ROUTE .COMPLEX Qty: 1 0RF Rx Instructions: Bariatric wheelchair; Fasenra 30 mg/mL syringe 30 mg subcut .[id number] Spiriva Respimat 1.25 mcg/actuation Mist 1 puff INHALATION BID fexofenadine [Susanne Allergy] 180 mg tablet 180 mg PO QAM ipratropium-albuterol 0.5 mg-3 mg(2.5 mg base)/3 mL solution for nebulization 3 ml INHALATION Q4 PRN (Reason: Shortness Of Breath) bumetanide 2 mg tablet 2 mg PO .BID UD Rx Instructions: TAKE 1 TAB 2 HR AFTER AM DOSE, THEN WAIT 2 MORE HRS & TAKE 1 TAB budesonide-formoterol [Symbicort] 80-4.5 mcg/actuation Hfa Aerosol Inhaler 1 inh INHALATION BID Discontinued amoxicillin-pot clavulanate 875-125 mg tablet 1 tab PO BID Qty: 14 0RF fluconazole 150 mg tablet 150 mg PO .Q3DAYS FOR 2 DOSES PRN (Reason: flare up) prednisone 20 mg tablet 40 mg PO .TAPER UD Rx Instructions: STARTED 10/01/2022 FOR 40 MG BID FOR 4 DAYS, TAPER UD Discharge Orders: Discharge Order (Routine); Ordered 10/08/22 Ordered By: Charli Gant Admission Data Admit Date/Time: 10/04/22 22:26 Attending Provider: Charli Gant Admit Provider: David Rueda Primary Care Provider: Ramon العراقي Other Providers: David Rueda ; Michael Lopez Other Interventions: Discharge Summary Assessment (RN) Last Done: 10/08/22 11:16 Coding Level of Care Code 06955 INP/OBS DISCH >30 MIN Diagnoses Acute asthma exacerbation J45.901 COVID-19 U07.1 OLIMPIA (obstructive sleep apnea) G47.33 GERD (gastroesophageal reflux disease) K21.9 Anticoagulant long-term use Z79.01 Congestive heart failure I50.9 Right knee pain M25.561
--- NOTE | 2022-10-08 18:12 | Communication Note ---
Date of Service: October 08, 2022 1.) Severe persistent asthma with (acute) exacerbation 2.) Chronic heart failure with preserved EF 3.) Morbid obesity with BMI 59
== END 2022-10-08 14:06 | disposition home or self-care (01) | DRG 202 ==
LOC: ED 13:08 → 2S 13:08 → SUATTDRO 16:42 → 2S 18:57 → SUATTDRO 10-04 22:26